=== PATIENT | female | born 1940 | race Caucasian/White ===

== ENCOUNTER → 2017-04-20 10:17 | Outpatient (CLI) | payer MEDICARE, SELFPAY ==
[2017-04-20 11:20] LABS: Anion Gap 6 (5-15); BUN 21 mg/dL (7-18); BUN/Creat Ratio 19.8 RATIO (10-20); Calcium,Total 9.5 mg/dL (8.5-10.1); Chloride 104 mmol/L (98-107); Creatinine, Serum 1.06 mg/dL (0.55-1.02); EST Glomerular Filtration Rate 54 mL/min (>60); Est Glom Filt Rate - Afr Amer 65 mL/min (>60); Glucose 129 mg/dL (74-106); Potassium 4.1 mmol/L (3.5-5.1); Sodium Level 140 mmol/L (136-145)
== END ==
PROVIDERS: Family Provider Internal Medicine; PCP Internal Medicine; Visit Provider Physician Assistant Medical
DX: I10 Essential (primary) hypertension (principal)
CPT/HCPCS: 36415; 80048

== ENCOUNTER 2017-08-26 09:47 | Emergency (ER) | payer MEDICARE, SELFPAY ==
[2017-08-26 09:48] VITALS: BP 162/95; PULSE 92; RESP 18; TEMP 36.6; BMI 39.7
--- NOTE | 2017-08-26 09:56 | NURSING ---
NO LW OR POA
--- NOTE | 2017-08-26 10:09 | ED.VISSUMM ---
- ER Visit Summary Date of Service: 08/26/17 Chief Complaint: Atraumatic right knee pain for months History of Present Illness: The patient is a 76 F history of hypertension and prediabetes. Patient states for the last 4-6 months she has had atraumatic right knee pain. Worse with walking. Better in the morning worse as she goes out to the day. Denies any type of fall or trauma. No redness or fever. No prior knee surgery. She is tried Motrin, Tylenol and hydrocodone without much relief. Also ice and rest. Physical Examination: Older female no acute distress. Vital signs are stable afebrile. H EENT exam unremarkable. Lungs clear to auscultation bilaterally. Heart regular rate and rhythm no murmur. Abdomen soft nontender. She is moving all 4 extremities. The neurovascular intact. The right knee has full range of motion. Full flexion-extension. The ligaments are intact. There is minimal swelling no significant effusion. No redness or warmth. She is mildly tender on the medial joint space and medial proximal tibia. There is no crepitus. Distally the right calf ankle and foot are nontender neurovascular intact with a normal DP pulse. Dorsi and plantar flexion is intact. Normal sensation. Right hip and thigh are unremarkable and nontender. Test Results: Right knee x-ray with 3 views his chronic degenerative changes consistent with osteoarthritis with joint space narrowing medially. Otherwise no acute bony abnormality. Emergency Department Course and Treatment: Patient history and exam is with right knee degenerative arthritis. Treatment Plan: Nano with patient and family at length. Did a right medial knee joint injection using lidocaine and Kenalog. Area was cleaned thoroughly with alcohol swabs. 1 injection without any difficulty. Patient tolerated procedure well. Discharge to home. Limited anti-inflammatories such as Motrin for pain and inflammation. Ice. And follow-up with Dr. Rajan Torres petroleum production engineer for orthopedics. Disposition: Discharge Impression: Atraumatic right knee pain related to osteoarthritis Right knee joint injection with Kenalog and lidocaine by ER physician This note was generated with [employer] dictation software. It may contain incorrect words, spelling, and punctuation that were not noted in review of the chart prior to signing ED Disposition - Plan for ED Patient: Chief Complaint: Lower Extremity Injury Referrals: Alejandra Randhawa MD [Primary Care Provider] -
--- NOTE | 2017-08-26 10:12 | ED.DCSUM_ITS ---
- ER Visit Summary Date of Service: 08/26/17 Chief Complaint: Atraumatic right knee pain for months History of Present Illness: The patient is a 76 F history of hypertension and prediabetes. Patient states for the last 4-6 months she has had atraumatic right knee pain. Worse with walking. Better in the morning worse as she goes out to the day. Denies any type of fall or trauma. No redness or fever. No prior knee surgery. She is tried Motrin, Tylenol and hydrocodone without much relief. Also ice and rest. Physical Examination: Older female no acute distress. Vital signs are stable afebrile. H EENT exam unremarkable. Lungs clear to auscultation bilaterally. Heart regular rate and rhythm no murmur. Abdomen soft nontender. She is moving all 4 extremities. The neurovascular intact. The right knee has full range of motion. Full flexion-extension. The ligaments are intact. There is minimal swelling no significant effusion. No redness or warmth. She is mildly tender on the medial joint space and medial proximal tibia. There is no crepitus. Distally the right calf ankle and foot are nontender neurovascular intact with a normal DP pulse. Dorsi and plantar flexion is intact. Normal sensation. Right hip and thigh are unremarkable and nontender. Test Results: Right knee x-ray with 3 views his chronic degenerative changes consistent with osteoarthritis with joint space narrowing medially. Otherwise no acute bony abnormality. Emergency Department Course and Treatment: Patient history and exam is with right knee degenerative arthritis. Treatment Plan: Nano with patient and family at length. Did a right medial knee joint injection using lidocaine and Kenalog. Area was cleaned thoroughly with alcohol swabs. 1 injection without any difficulty. Patient tolerated procedure well. Discharge to home. Limited anti-inflammatories such as Motrin for pain and inflammation. Ice. And follow-up with Dr. Rajan Torres mercerizing range controller for orthopedics. Disposition: Discharge Impression: Atraumatic right knee pain related to osteoarthritis Right knee joint injection with Kenalog and lidocaine by ER physician This note was generated with [employer] dictation software. It may contain incorrect words, spelling, and punctuation that were not noted in review of the chart prior to signing ED Disposition - Plan for ED Patient: Chief Complaint: Lower Extremity Injury Referrals: Alejandra Randhawa MD [Primary Care Provider] -
--- NOTE | 2017-08-26 10:15 | RAD_ITS ---
STUDY: X-RAY - RIGHT KNEE REASON FOR EXAM: Female, 76 years old. Six-month history of pain. No known injury. TECHNIQUE: 3 view(s) of the knee. COMPARISON: None. FINDINGS: Normal visualized distal femur. Normal visualized proximal tibia and fibula. Normal proximal tibiofibular articulation. There is mild degenerative arthrosis of the medial femorotibial compartment. Normal lateral femorotibial compartment. There is mild degenerative arthrosis of the patellofemoral articulation. Chondrocalcinosis of the lateral meniscus. The soft tissue structures are unremarkable. RAD/Knee 3 Views IMPRESSION: Degenerative arthrosis. Chondrocalcinosis of the lateral meniscus. Electronically Signed: Justin Durand MD at 10:35 EDT Tel [phone], Service support ,
[2017-08-26 11:03] VITALS: BP 159/84; PULSE 65; RESP 16; O2SAT 97
[2017-08-26] MEDS: Triamcinolone Acetonide 40 MG/ML Vial IU (11:28)
[2017-08-26] MEDS: Lidocaine/Epi/Tetracaine 50 ML 1 APPLIC TOPICAL (11:28)
--- NOTE | 2017-08-26 12:19 | ED.DEP ---
ED Disposition - Plan for ED Patient: Disposition: Home or Assisted Living Chief Complaint: Lower Extremity Injury Instructions: ED Degenerative Joint Disease Referrals: Rajan Torres DO [STAFF PHYSICIAN] - As soon as possible Additional Instructions: Call and follow-up with a orthopedic physician of your choice. They can discuss to further treatment and possible joint replacement of the right knee. Ice to the right knee to decrease inflammation. Limited Motrin for pain and inflammation. 400 mg twice a day.
== END 2017-08-26 12:52 | disposition home or self-care (01) ==
PROVIDERS: Emergency Provider Emergency Medicine; Family Provider Internal Medicine; PCP Internal Medicine
DX: M17.11 Unilateral primary osteoarthritis, right knee (principal); I10 Essential (primary) hypertension
CPT/HCPCS: 20610; 73562; 99282

== ENCOUNTER → 2018-01-09 11:13 | Outpatient (CLI) | payer MEDICARE, SELFPAY ==
[2018-01-09 11:56] LABS: Anion Gap 7 (5-15); BUN 23 mg/dL (7-18); BUN/Creat Ratio 25.2 RATIO (10-20); Calcium,Total 9.4 mg/dL (8.5-10.1); Chloride 107 mmol/L (98-107); Creatinine, Serum 0.91 mg/dL (0.55-1.02); EST Glomerular Filtration Rate 64 mL/min (>60); Est Glom Filt Rate - Afr Amer 77 mL/min (>60); Glucose 109 mg/dL (74-106); Potassium 3.8 mmol/L (3.5-5.1); Sodium Level 142 mmol/L (136-145)
== END ==
PROVIDERS: Internal Medicine Cardiovascular Disease; Family Provider Internal Medicine; PCP Internal Medicine; Referring Provider Internal Medicine Cardiovascular Disease; Visit Provider Internal Medicine Cardiovascular Disease
DX: I10 Essential (primary) hypertension (principal)
CPT/HCPCS: 36415; 80048

== ENCOUNTER → 2019-08-01 | Outpatient (CLI) | payer MEDICARE, SELFPAY ==
[2019-08-01 13:15] VITALS: BMI 41.5
[2019-08-01 15:10] LABS: Anion Gap 5 (5-15); BUN 19 mg/dL (7-18); BUN/Creat Ratio 22.3 RATIO (10-20); Calcium,Total 10.2 mg/dL (8.5-10.1); Chloride 101 mmol/L (98-107); Creatinine, Serum 0.85 mg/dL (0.55-1.02); EST Glomerular Filtration Rate 69 mL/min (>60); Est Glom Filt Rate - Afr Amer 83 mL/min (>60); Glucose 111 mg/dL (74-106); Potassium 3.7 mmol/L (3.5-5.1); Sodium Level 139 mmol/L (136-145)
[2019-08-01 15:35] LABS: BNP,B-Type NATRIURETIC PEPTIDE 12.3 pg/mL (0-100)
== END | disposition home or self-care (01) ==
PROVIDERS: PCP Internal Medicine; Referring Provider Nurse Practitioner Family; Visit Provider Nurse Practitioner Family
DX: I25.10 Atherosclerotic heart disease of native coronary artery without angina pectoris (principal); R06.02 Shortness of breath; R06.00 Dyspnea, unspecified; Z95.2 Presence of prosthetic heart valve
CPT/HCPCS: 36415; 80048; 83880

== ENCOUNTER → 2019-08-13 07:17 | Outpatient (CLI) | payer MEDICARE, SELFPAY ==
[2019-07-17 09:53] VITALS: BMI 42.0
[2019-08-01 13:15] VITALS: BMI 41.5
--- NOTE | 2019-08-13 07:19 | ECHOD_ITS ---
Reason For Study: SOB Procedure This was a 2D Doppler, Color Flow transthoracic echocardiogram. Exam performed in department. Left Ventricle Normal LV size. Mild concentric left ventricular hypertrophy. Left ventricular systolic function is normal. The estimated ejection fraction is 65 %. Stage 1 diastolic dysfunction. No regional wall motion abnormalities noted. Right Ventricle Normal RV size. Normal systolic function. Atria The left atrium is mildly enlarged. Normal right atrium. Mitral Valve Normal mitral valve. Tricuspid Valve Normal tricuspid valve. Mild tricuspid valve insufficiency. Pulmonary artery systolic pressure is 31 mmHg. Aortic Valve Peak aortic valve gradient 23 mmHg. Mean aortic valve gradient 11 mmHg. Bioprosthetic aortic valve. MMode/2D Measurements & Calculations LVIDd: 3.6 cm IVSd: 1.3 cm LVOT diam: 1.9 cm LVIDs: 1.9 cm LVPWd: 1.3 cm RVDd: 3.3 cm FS: 47.8 % LVOT area: 2.8 cm2 Ao root diam: 3.4 cm LAV(MOD-bp): 65.9 ml LA A4 area: 22.6 cm2 LAV(MOD-bp) Indexed: 34.4 ml/m2 LAV(MOD-sp2): 55.3 ml LAV(MOD-sp4): 78.5 ml LA dimension(2D): 4.0 cm RA A4 area: 13.6 cm2 Doppler Measurements & Calculations MV E max dani: 104.5 cm/sec Lat Peak E' Dani: 4.4 cm/sec Med Peak E' Dani: 5.9 cm/sec MV A max dani: 120.0 cm/sec E/E' lat: 23.8 E/E' med: 17.6 MV E/A: 0.87 Ao V2 max: 241.1 cm/sec LV V1 max: 160.1 cm/sec SV(LVOT): 96.3 ml Ao max P.3 mmHg LV V1 max P.3 mmHg Ao V2 mean: 155.7 cm/sec LV V1 mean P.6 mmHg Ao mean P.2 mmHg LV V1 mean: 110.8 cm/sec Ao V2 VTI: 49.0 cm LV V1 VTI: 34.9 cm AVELINO(I,D): 2.0 cm2 AVELINO(V,D): 1.8 cm2 PA V2 max: 147.2 cm/sec TR max dani: 262.6 cm/sec TR max P.7 mmHg Interpretation Summary Normal LV size. Mild concentric left ventricular hypertrophy. Left ventricular systolic function is normal. The estimated ejection fraction is 65 %. Stage 1 diastolic dysfunction. Bioprosthetic aortic valve. Mean aortic valve gradient 11 mmHg. Ordering Physician: Mitch Brooks/Reggie Olguin Referring Physician: Alejandra Randhawa M.D. Performed By: Kamala Mortensen RDCS
--- NOTE | 2019-08-13 09:57 | STRESSREP ---
Stress Test Report Pharmacologic myocardial perfusion stress test. 78-year-old lady with history of coronary artery disease status post TAVR. Stress protocol: Resting EKG demonstrates normal sinus rhythm with a rate of 81 bpm normal intervals are noted resting blood pressures 138/74 mmHg. 0.4 mg of regadenoson was infused per usual protocol followed by rapid intravenous saline flush injection. Continuous EKG monitoring was performed. The maximum heart rate was 96 bpm which was 66% of maximum predicted heart rate the maximum workload was 1 metabolic equivalent. The patient maintained sinus rhythm with nonspecific ST-T wave changes noted. The resting blood pressure is 138/74 mmHg with a final blood pressure 146/64 mmHg. Myocardial perfusion protocol. 15.0 mCi of technetium 99m sestamibi was injected at rest. 0.4 mg of regadenoson was infused per usual protocol. At peak infusion 45.0 mCi of technetium 99m sestamibi was injected stress images were obtained stress and rest images are reconstructed and compared in the short axis vertical long horizontal long axis. Gated images were also obtained. Perfusion SPECT analysis: Review of the images demonstrate normal uptake of tracer noted in all areas of the myocardium the resting images similar demonstrate normal uptake of tracer noted in all areas of the myocardium. No areas of reversibility are noted suggest ischemia no previous infarct is noted. Gated SPECT analysis: The gated ejection fraction is 76%. Conclusion: Normal pharmacologic myocardial perfusion stress test. Preserved ejection fraction.
== END ==
PROVIDERS: PCP Internal Medicine; Referring Provider Nurse Practitioner Family; Visit Provider Nurse Practitioner Family
DX: R06.02 Shortness of breath (principal); I25.10 Atherosclerotic heart disease of native coronary artery without angina pectoris; I10 Essential (primary) hypertension; Z95.2 Presence of prosthetic heart valve
CPT/HCPCS: 78452; 93017; 93306; A9500; A4216; J2785

== ENCOUNTER 2020-05-28 10:47 | Day surgery (SDC) | payer MEDICARE, SELFPAY ==
[2020-02-14 09:10] VITALS: BMI 41.2
--- NOTE | 2020-05-28 | COLBX_PTH ---
PATIENT: JARRED ODONNELL LOC: EN U#:[id number] AGE/SX: 79/F ROOM: RE05/28/[address]: Dr. Leni Nunes MD : 1940 BED: DIS: 05/28/2020 SPEC #: [id number] RECD: 05/29/20 07:28 STATUS: RENNY REQ #: [id number] LEELA: 05/28/20 00:[address]: Leni Nunes DEPT: SURGICAL PATHOLOGY RECD BY: Ashkan Gore ENTERED: 05/29/20 07:28 SP TYPE: COLON BX OTHR DR: Dr. Alejandra Randhawa MD Tissues: Right colon Procedures: Surgery Specimen Level IV HEADER OPERATION: Colonoscopy (MAC) PRE-OP DIAGNOSIS: History colon polyps TISSUE SUBMITTED: Polyp right colon MICROSCOPIC DIAGNOSIS Right colon polyp, biopsy: Tubular adenoma. AM:bryan 05/30/2020 MICROSCOPIC DESCRIPTION Slides are reviewed. GROSS DESCRIPTION Received in fixative is one container labeled with the patient's name and designated polyp right colon. The specimen consists of multiple irregular fragments of light soto soft tissue that in aggregate measure 1 x 0.2 x 0.1 cm. The specimen is totally submitted in one cassette. / JOHANNA:bryan 05/29/20 TC:5 CPT: 19158
[2020-05-28 11:30] VITALS: BP 121/74; PULSE 70; RESP 16; TEMP 36.4; O2SAT 98; BMI 41.8
[2020-05-28] MEDS: Lactated Ringers 1,000 ML 100 ML IV (11:44)
--- NOTE | 2020-05-28 11:45 | HP.PCM_ITS ---
History and Physical Date of Admission: 05/28/20 Annemarie Fair a 79 year old female who is referred by Dr. Randhawa for surveillance colonoscopy. The patient has a personal history of colon polyps, and a family history of colon cancer in that her father had the disease. ? The patient was seen by Dr. Ratliff for surveillance colonoscopy 05/22/15. The procedure report has been reviewed and findings as follows: Impression: ? ? - One 5 mm polyp at 30 cm proximal to the anus. ? Resected and retrieved. ? - Diverticulosis in the sigmoid colon, in the ? descending colon and in the ascending colon. ? FINAL DIAGNOSIS Colon at 30 cm, polypectomy - Tubular adenoma. ? I have reviewed the procedure and pathology reports, as well as the images, with the patient. ? The patient has a history of CAD, HTN and HLD for which she sees Dr. Cui, asthma, hypothyroidism, and dysmetabolic syndrome A1C 5.9 one year ago). ? ? Presenting complaint: history of polyps The patient denies change in bowel habits, rectal bleeding or abdominal pain. Having a bowel movement at least every day. ? The patient presents today reporting that she continues with shortness of breath - TINAJERO. Using CPAP. ? REVIEW OF SYSTEMS: GENERAL: No weight loss, malaise or fevers RESPIRATORY: Asthma. Shortness of breath CARDIOVASCULAR: Aortic valve replacement, HTN GI: As reported above MUSCULOSKELETAL: Positive for joint pain or swelling, back pain or muscle pain PSYCH: Negative for sleep disturbance, mood disorder and recent psychosocial stressors. HEMATOLOGY/LYMPHOLOGY Negative for prolonged bleeding, bruising easily or swollen nodes ENDOCRINE: Hypothyroidism and dysmetabolic syndrome NEURO: No history of headaches, syncope, paralysis, seizures or tremors All other reviewed and negative other than HPI. ? PAST MEDICAL HISTORY PAST MEDICAL HISTORY Diagnosis Date ? Allergic rhinitis, cause unspecified ? ? Allergic rhinitis ? Benign neoplasm of colon ? ? Disorder of bone and cartilage, unspecified ? ? Dysmetabolic syndrome X 06/28/2006 ? Started on Januvia by Dr. Toure for DM prevention since did not tolerate metformin ? Nonrheumatic aortic insufficiency with aortic stenosis ? ? Dr. Olguin--Moderate on recent echo Dec 2015 ? Obesity, unspecified ? ? Other diseases of pharynx, not elsewhere classified(478.29) ? ? Personal history of colonic polyps ? ? Pure hyperglyceridemia ? ? Snoring ? ? Unspecified asthma(493.90) ? ? Unspecified cardiovascular disease ? ? AI and some CAD on cath (Clau follows) ? Unspecified essential hypertension ? ? Unspecified hypothyroidism ? ? ? PAST SURGICAL HISTORY PAST SURGICAL HISTORY Procedure Laterality Date ? COLONOS W/REM POLYP SNARE ? 03/27/10 ? COLONOSCOP W/ OR W/O BRSH SPEC ? 05/13/2000 ? Colonoscopy ? COLONOSCOP W/ OR W/O BRSH SPEC ? 06/15/2006 ? Colonoscopy- TA polyp ? COLONOSCOP W/ OR W/O BRSH SPEC ? 05/22/15 ? Colonoscopy ? D&C, DIAG AND/OR THERAPEUTIC ? ? ? Dilation & curettage ? EYE EXAM & TREATMENT ? 01/07/12 ? No diabetic retinopathy detected ? LIGATE FALLOPIAN TUBE ? ? ? Tubal ligation ? PAST SURGICAL HISTORY OF ? 02/20/2002 ? parathyroid resection (Dr. 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 PAST SURGICAL HISTORY OF ? ? ? heart cath x2 ? PAST SURGICAL HISTORY OF ? ? ? moles removed ? PAST SURGICAL HISTORY OF ? 08/07/13 ? Dr. Ferguson took 3 skin biopsies ? REMOVAL GALLBLADDER ? ? ? Cholecystectomy ? STRESS TEST ? 01/12/2016 ? ? FAMILY HISTORY FAMILY HISTORY Problem Relation Age of Onset ? Heart Mother ? ? Heart Brother ? ? x2 ? Colon Cancer Father ? ? Hypertension Mother ? ? Hypertension Brother ? ? Diabetes Brother ? ? ? CURRENT MEDICATIONS Current Outpatient Medications Medication Sig Dispense Refill ? CPAP Needs replacement CPAP at 9cm H2O with humidification. Refills for Mask (per patient preference) optional chin strap (if indicated) , filters, tubing, humidifier and lifetime supplies. G47.33 1 Device 0 ? Zinc 50 mg tab Take 1 tablet by mouth once daily. ? ? ? montelukast (SINGULAIR) 10 mg tablet Take 1 tablet by mouth once daily. As directed 90 tablet 3 ? levothyroxine (SYNTHROID) 137 mcg tablet Take 1 tablet by mouth daily before breakfast. 90 tablet 3 ? amLODIPine (NORVASC) 10 mg tablet Take 1 tablet by mouth once daily. (Dr. Olguin) ? ? ? rosuvastatin (CRESTOR) 5 mg tablet Take 1 tablet by mouth every Tuesday,Tuesday,Tuesday. ? ? ? glucosamine HCl/chondroitin mccarthy (GLUCOSAMINE-CHONDROITIN ORAL) Take by mouth once daily. ? ? ? ubidecarenone (CO Q-10 ORAL) Take by mouth once daily. ? ? ? albuterol HFA (VENTOLIN HFA) 90 mcg/actuation inhaler Inhale 2 Puffs as instructed every 4 hours as needed. 3 Inhaler 0 ? lisinopril (ZESTRIL, PRINIVIL) 40 mg tablet Take 1 tablet by mouth once daily. ? ? ? carvedilol (COREG) 6.25 mg tablet Take 1 tablet by mouth twice daily. ? ? ? acetaminophen (TYLENOL EXTRA STRENGTH) 500 mg tablet Take 2 tablets by mouth three times daily. ? ? ? Multivitamin capsule Take 1 capsule by mouth once daily. ? ? ? furosemide (LASIX) 40 mg tablet Take 40 mg by mouth once daily. ? ? ? vitamin e 1,000 unit capsule Take 1,000 Units by mouth once daily. ? ? ? BIOTIN ORAL Take by mouth. ? ? ? VITAMIN A PALMITATE ORAL Take by mouth. ? ? ? Cetirizine (ZYRTEC) 10 mg cap Take by mouth. ? 0 ? Cholecalciferol, Vitamin D3, 1,000 unit cap Take 1 capsule by mouth once daily. ? 0 ? aspirin, enteric coated (ECOTRIN LOW STRENGTH) 81 mg EC tablet Take 1 tablet by mouth once daily. ? 0 ? COMPOUNDED PRESCRIPTION CPAP head gear Diagnosis :OPHELIA 327.23 1 Each 0 ? OMEGA-3 FATTY ACIDS-FISH OIL 300 MG-1,000 MG CAP Take one(1) tablet daily. 0 0 ? diphenhydramine hcl(BENADRYL 25 MG CAP) Take one(1) tablet daily at bedtime as necessary (uses 5-6 x's a week) 0 0 ? No current facility-administered medications for this visit. ? ? SOCIAL HISTORY: Patient is . She has never smoked and reports her alcohol use as never. ? ? PHYSICAL EXAMINATION: BMI 42.5 Blood pressure 122/74, pulse 77, height 152.8 cm (5' 0.16), weight 99.3 kg (219 lb), last menstrual period 09/04/2001, SpO2 99 %. General Appearance: Well appearing, alert, in no acute distress, well-hydrated, well nourished. Skin: Skin color, texture, turgor normal, no suspicious rashes or lesions. Head: Normocephalic, no abnormalities. Eyes: Anicteric sclera. Neck: Supple, no adenopathy. Lungs: Lungs clear to auscultation. Heart: RRR with 2/6 murmur. Abdomen: Abdomen rotund, non-tender. Bowel sounds normal. Extremities: No deformities, non-pitting edema bilateral LE. Peripheral Pulses: Normal. Neurologic: Gait normal. Sensation grossly intact. ? Impression: history of polyps 2) asthma ? Plan: I have recommended MAC sedation and the patient agrees. Requesting procedure at [facility] since her patient access representative is there. ? This patient will be scheduled for a colonoscopy using Miralax as the prep. The preparation, as well as the procedure, has been explained in detail. The risks, benefits, anticipated outcomes and possible complications, including failure to complete the endoscopy and perforation, were mentioned. ?I explained the procedure in understandable terms and the patient was given printed material concerning the planned procedure. The patient had the opportunity to ask questions concerning the planned procedure. The patient freely consents to the planned procedure. ? The patient is scheduled for a procedure at the [facility]. I have explained that his/her health and safety, as well as that of our staff is important. The risk of exposure to, or potential harm posed by the COVID-19 virus with having a procedure at this time is as minimal as possible. Measures are being taken to minimize any potential risk of infection. I have explained that he/she will see that the staff will be wearing masks and gloves. The patient's temperature will be taken on arrival, they will be asked a series of questions to reassess current wellness, and asked to use hand dust collector attendant foam. The bed areas are cleaned and the procedure rooms are thoroughly disinfected between patients. Procedure rooms will be alternated to give the disinfection more than enough time to ensure adequate protection for all involved. ? The patient is asked to call with any questions for concerns, or should there be any change in health status between now and the scheduled procedure. ? I have personally interviewed and examined this patient. I have read the information the EGG FACTORY WORKER documented in this encounter. I spent a total of?at least 25?minutes on the date of the service which included completing clinical documentation, counseling and educating the patient/family/caregiver, ordering medications, tests, or procedures and care coordination (not separately reported). ? Vanesa Bright RN SALES TEAM LEADER.PULLEY MAINTAINER
[2020-05-28 12:30] VITALS: BP 103/71; BP 121/74; PULSE 69; RESP 16; TEMP 36.2; O2SAT 96
[2020-05-28 12:35] VITALS: BP 102/47; BP 121/74; PULSE 63; RESP 16; O2SAT 97
[2020-05-28 12:40] VITALS: BP 121/74; BP 99/50; PULSE 61; RESP 16; O2SAT 98
[2020-05-28 12:42] VITALS: BP 110/58; BP 121/74; PULSE 63; RESP 18; TEMP 36.6; O2SAT 98
--- NOTE | 2020-05-28 12:47 | OP.COLON_ITS ---
Patient Name: Peyton Fair Procedure Date: 05/28/2020 11:22 AM Date of : 1940 Age: 79 Procedure: Colonoscopy Indications: High risk colon cancer surveillance: Personal history of colonic polyps Providers: Leni Nunes MD Referring MD: Alejandra Randhawa Medicines: See the Anesthesia note for documentation of the administered medications Patient Profile: Refer to note in patient chart for documentation of history and physical. Last Colonoscopy: 2015. Complications: No immediate complications. Procedure: Pre-Anesthesia Assessment: - see anesthesia note After I obtained informed consent, the scope was passed under direct vision. Throughout the procedure, the patient's blood pressure, pulse, and oxygen saturations were monitored continuously. The Colonoscope was introduced through the anus and advanced to the cecum, identified by the appendiceal orifice, ileocecal valve and palpation. The colonoscopy was performed without difficulty. The patient tolerated the procedure well. The quality of the bowel preparation was adequate to identify polyps 6 mm and larger in size. Scope In: 12:06:28 PM Scope Withdrawal Time 0 hours 13 minutes 25 seconds Scope Out: 12:24:40 PM Total Procedure Duration Time 0 hours 18 minutes 12 seconds Findings: The perianal and digital rectal examinations were normal. Multiple small and large-mouthed diverticula were found in the sigmoid colon, descending colon, transverse colon and ascending colon. A 4 to 9 mm polyp was found in the ascending colon. The polyp was sessile. The polyp was removed with a cold snare. Resection and retrieval were complete. Verification of patient identification for the specimen was done by the nurse. Estimated blood loss was minimal. Non-bleeding internal hemorrhoids were found. Impression: - Diverticulosis in the sigmoid colon, in the descending colon, in the transverse colon and in the ascending colon. - One 4 to 9 mm polyp in the ascending colon, removed with a cold snare. Resected and retrieved. - Non-bleeding internal hemorrhoids. Recommendation: - Return to nurse practitioner in 1-2 week - call Vanesa Bright for televisit to discuss results. - Repeat colonoscopy is recommended for surveillance. The colonoscopy date will be determined after pathology results from today's exam become available for review. - Continue present medications. Procedure Code(s): --- Professional --- 08972, Colonoscopy, flexible; with removal of tumor(s), polyp(s), or other lesion(s) by snare technique Diagnosis Code(s): --- Professional --- Z86.010, Personal history of colonic polyps K64.8, Other hemorrhoids D12.2, Benign neoplasm of ascending colon K57.30, Diverticulosis of large intestine without perforation or abscess without bleeding CPT copyright 2017 [employer] [place] [employer]. All rights reserved. The codes documented in this report are preliminary and upon graphic artist review may be revised to meet current compliance requirements. MD Leni Strange MD 05/28/2020 12:35:58 PM This report has been signed electronically. Number of Addenda: 0 Note Initiated On: 05/28/2020 11:22 AM
--- NOTE | 2020-05-28 12:47 | OP.CCLET_ITS ---
05/28/2020 Alejandra Randhawa [address] [place] [address] Re : Colonoscopy procedure for Peyton Pettite Dear Dr. Randhawa This procedure was performed on Thursday, May 28, 2020. My impressions and recommendations are as follows: Impressions : - Diverticulosis in the sigmoid colon, in the descending colon, in the transverse colon and in the ascending colon. - One 4 to 9 mm polyp in the ascending colon, removed with a cold snare. Resected and retrieved. - Non-bleeding internal hemorrhoids. Recommendations : - Return to nurse practitioner in 1-2 week - call Vanesa Bright for televisit to discuss results. - Repeat colonoscopy is recommended for surveillance. The colonoscopy date will be determined after pathology results from today's exam become available for review. - Continue present medications. My findings are described in the full procedure note, which is enclosed. If I can be of further assistance, please feel free to contact me at Doctor phone number(s): , Work: . Sincerely, MD Leni Strange MD 05/28/2020 12:35:58 PM This report has been signed electronically.
[2020-05-28 13:08] VITALS: BP 121/74
== END 2020-05-28 13:21 | disposition home or self-care (01) ==
LOC: EN 10:47 → AC 10:51
PROVIDERS: PCP Internal Medicine; Referring Provider Internal Medicine; Visit Provider Surgery
PROC: 0DJD8ZZ Inspection of Lower Intestinal Tract, Via Natural or Artificial Opening Endoscopic (ICD-10-PCS; CPT 45378; principal; 2020-05-28 11:55)
DX: Z12.11 Encounter for screening for malignant neoplasm of colon (principal); D12.2 Benign neoplasm of ascending colon; K57.30 Diverticulosis of large intestine without perforation or abscess without bleeding; K64.8 Other hemorrhoids; I25.10 Atherosclerotic heart disease of native coronary artery without angina pectoris; I10 Essential (primary) hypertension; E78.5 Hyperlipidemia, unspecified; E03.9 Hypothyroidism, unspecified; J45.909 Unspecified asthma, uncomplicated; G47.30 Sleep apnea, unspecified; E66.9 Obesity, unspecified; Z68.41 Body mass index [BMI] 40.0-44.9, adult; Z86.010 Personal history of colon polyps; Z20.822 Contact with and (suspected) exposure to COVID-19; Z79.51 Long term (current) use of inhaled steroids; Z79.899 Other long term (current) drug therapy
CPT/HCPCS: 45380; 87426; 88305; C9803; J7120

== ENCOUNTER → 2022-03-25 | Outpatient (CLI) | payer MEDICARE, SELFPAY ==
--- NOTE | 2022-03-25 09:37 | ECHOD_ITS ---
Version 2 Reason For Study: ASHD Procedure This was a 2D Doppler, Color Flow transthoracic echocardiogram. Exam performed in department. Left Ventricle Normal LV size. Mild concentric left ventricular hypertrophy. Left ventricular systolic function is normal. The estimated ejection fraction is 60 %. No regional wall motion abnormalities noted. Right Ventricle Normal RV size. Normal systolic function. Atria Normal left atrium. Normal right atrium. Mitral Valve There is mild mitral annular calcification. Tricuspid Valve Normal tricuspid valve. Aortic Valve Peak aortic valve gradient 15 mmHg. Mean aortic valve gradient 9 mmHg. Normal prosthetic aortic valve. Pulmonic Valve Normal pulmonic valve. Great Vessels Normal aortic root. The pulmonary artery is normal size. Normal inferior vena cava. Pericardium/Pleural No pericardial effusion. MMode/2D Measurements & Calculations LVIDd: 4.4 cm IVSd: 1.3 cm LVOT diam: 1.9 cm LVIDs: 2.3 cm LVPWd: 1.3 cm LVOT area: 3.0 cm2 RVDd: 3.7 cm FS: 46.5 % Ao root diam: 3.1 cm LAV(MOD-bp): 71.2 ml LVAd ap4: 24.0 cm2 LAV(MOD-bp) Indexed: 37.0 ml/m2 LVLd ap4: 7.7 cm LAV(MOD-sp2): 70.4 ml EDV(MOD-sp4): 63.9 ml LAV(MOD-sp4): 70.1 ml EDV(sp4-el): 63.5 ml LVAs ap4: 10.2 cm2 LVLs ap4: 5.8 cm ESV(MOD-sp4): 16.5 ml ESV(sp4-el): 15.1 ml EF(MOD-sp4): 74.2 % EF(sp4-el): 76.1 % LVAd ap2: 22.6 cm2 SV(MOD-sp4): 47.4 ml SV(MOD-sp2): 35.3 ml LVLd ap2: 8.2 cm EDV(MOD-sp2): 53.9 ml EDV(sp2-el): 52.8 ml LVAs ap2: 12.0 cm2 LVLs ap2: 6.7 cm ESV(MOD-sp2): 18.6 ml ESV(sp2-el): 18.4 ml EF(MOD-sp2): 65.5 % SV(sp4-el): 48.3 ml LA dimension(2D): 4.0 cm LA A4 area: 20.9 cm2 RA A4 area: 17.2 cm2 Time Measurements MV dec time: 0.23 sec Doppler Measurements & Calculations MV E max dani: 94.0 cm/sec Lat Peak E' Dani: 6.0 cm/sec Med Peak E' Dani: 7.9 cm/sec MV A max dani: 117.4 cm/sec E/E' lat: 15.6 E/E' med: 11.8 MV E/A: 0.80 Ao V2 max: 192.5 cm/sec LV V1 max: 116.0 cm/sec MV dec slope: 414.2 cm/sec2 Ao max P.8 mmHg LV V1 max P.4 mmHg Ao V2 mean: 139.4 cm/sec LV V1 mean P.3 mmHg Ao mean P.6 mmHg LV V1 mean: 87.2 cm/sec Ao V2 VTI: 42.7 cm LV V1 VTI: 28.0 cm AV (velocity ratio): 0.66 AVELINO(I,D): 1.9 cm2 AVELINO(V,D): 1.8 cm2 SV(LVOT): 82.6 ml PA V2 max: 107.3 cm/sec TR max dani: 291.3 cm/sec TR max P.9 mmHg ECHO/Echo Complete Interpretation Summary Normal LV size. Left ventricular systolic function is normal. The estimated ejection fraction is 60 %. There is mild mitral annular calcification. Mild concentric left ventricular hypertrophy. Normal prosthetic aortic valve. Mean aortic valve gradient 9 mmHg. Compared to the previous no significant changes noted Ordering Physician: Reggie Olguin Referring Physician: Alejandra Randhawa Performed By: Delisa Ascencio, RDCS, RVT
== END | disposition home or self-care (01) ==
LOC: CVS 09:36
PROVIDERS: PCP Internal Medicine; Referring Provider Internal Medicine Cardiovascular Disease; Visit Provider Internal Medicine Cardiovascular Disease
DX: I25.10 Atherosclerotic heart disease of native coronary artery without angina pectoris (principal); Z95.2 Presence of prosthetic heart valve; R06.02 Shortness of breath; I10 Essential (primary) hypertension
CPT/HCPCS: 93306

== ENCOUNTER → 2023-03-23 | Outpatient (CLI) | payer MEDICARE, SELFPAY ==
--- NOTE | 2023-03-23 09:52 | ECHOCS_ITS ---
Reason For Study: Presence of Prosthetic Heart Valve Procedure This was a 2D Doppler, Color Flow transthoracic echocardiogram. Contrast injection was performed. Exam performed in department. Left Ventricle Normal LV size. Left ventricular systolic function is normal. The estimated ejection fraction is 70 %. No regional wall motion abnormalities noted. Right Ventricle Normal right ventricle. Normal systolic function. Atria Normal left atrium. Normal right atrium. Mitral Valve Normal mitral valve. Tricuspid Valve Normal tricuspid valve. Mild (1+) tricuspid valve insufficiency. Pulmonary artery systolic pressure is 36 mmHg. Aortic Valve Peak aortic valve gradient 21 mmHg. Mean aortic valve gradient 12 mmHg. Bioprosthetic aortic valve. Pulmonic Valve Normal pulmonic valve. Great Vessels Normal aortic root. The pulmonary artery is normal size. Normal inferior vena cava. Pericardium/Pleural No pericardial effusion. Medication Diluted definity 2ml given slow IV push to enhance endocardial definition. MMode/2D Measurements & Calculations LVIDd: 4.3 cm IVSd: 1.1 cm LVOT diam: 1.9 cm LVIDs: 2.3 cm LVPWd: 1.1 cm RVDd: 3.6 cm FS: 46.7 % LVOT area: 2.7 cm2 Ao root diam: 3.0 cm LAV(MOD-bp): 50.9 ml LVAd ap4: 28.2 cm2 LAV(MOD-bp) Indexed: 26.5 ml/m2 LVLd ap4: 7.5 cm LAV(MOD-sp2): 53.8 ml EDV(MOD-sp4): 90.3 ml LAV(MOD-sp4): 47.6 ml EDV(sp4-el): 90.4 ml LVAs ap4: 14.0 cm2 LVLs ap4: 6.5 cm ESV(MOD-sp4): 25.5 ml ESV(sp4-el): 25.6 ml EF(MOD-sp4): 71.8 % EF(sp4-el): 71.7 % SV(MOD-sp4): 64.8 ml SV(sp4-el): 64.8 ml LA A4 area: 17.8 cm2 LA dimension(2D): 3.6 cm RA A4 area: 11.5 cm2 TAPSE: 2.4 cm Time Measurements MV dec time: 0.31 sec Doppler Measurements & Calculations MV E max dani: 81.4 cm/sec Lat Peak E' Dani: 7.1 cm/sec Med Peak E' Dani: 6.9 cm/sec MV A max dani: 118.3 cm/sec E/E' lat: 11.5 E/E' med: 11.7 MV E/A: 0.69 MV V2 max: 127.5 cm/sec MV dec slope: 266.4 cm/sec2 Ao V2 max: 233.0 cm/sec MV max P.5 mmHg Ao max P.7 mmHg MV V2 mean: 87.4 cm/sec Ao V2 mean: 164.1 cm/sec MV mean P.4 mmHg Ao mean P.1 mmHg MV V2 VTI: 38.2 cm Ao V2 VTI: 47.8 cm MVA(VTI): 2.7 cm2 AV (velocity ratio): 0.80 AVELINO(I,D): 2.2 cm2 AVELINO(V,D): 2.0 cm2 LV V1 max: 173.5 cm/sec SV(LVOT): 102.9 ml PA V2 max: 94.0 cm/sec LV V1 max P.0 mmHg LV V1 mean P.3 mmHg LV V1 mean: 128.7 cm/sec LV V1 VTI: 38.2 cm TR max dani: 290.8 cm/sec TR max P.8 mmHg ECHO/Echo Complete W/ Contrast Interpretation Summary Normal LV size. Left ventricular systolic function is normal. The estimated ejection fraction is 70 %. Bioprosthetic aortic valve. Mean aortic valve gradient 12 mmHg. Contrast injection was performed. Ordering Physician: Ginette Oquendo Referring Physician: Alejandra Randhawa Performed By: Adina Brooks RDCS, RVT
== END | disposition home or self-care (01) ==
LOC: CVS 09:51
PROVIDERS: PCP Internal Medicine; Referring Provider Nurse Practitioner Gerontology; Visit Provider Nurse Practitioner Gerontology
DX: Z95.2 Presence of prosthetic heart valve (principal)
CPT/HCPCS: 93306; Q9957; A4216; C8929

== ENCOUNTER → 2023-05-31 | Outpatient (CLI) | payer MEDICARE, SELFPAY ==
[2023-05-31 11:25] LABS: AST(SGOT) 21 U/L (15-37); Alanine Aminotransfer ALT/SGPT 41 U/L (13-56); Albumin, Serum 3.7 g/dL (3.2-5.0); Alkaline Phosphatase 102 U/L (45-117); Bilirubin, Direct 0.12 mg/dL (0.00-0.30); Cholesterol 243 mg/dL (200); Globulin 3.8 g/dL (2.2-4.2); High Density Lipoprotein 43 mg/dL; Protein, Total 7.5 g/dL (6.4-8.2); Triglycerides 272 mg/dL; Very Low Density Lipoprotein 54 mg/dL (5-40)
== END | disposition home or self-care (01) ==
LOC: LAB 10:13
PROVIDERS: PCP Internal Medicine; Referring Provider Nurse Practitioner Gerontology; Visit Provider Nurse Practitioner Gerontology
DX: E78.00 Pure hypercholesterolemia, unspecified (principal)
CPT/HCPCS: 36415; 80061; 80076

== ENCOUNTER → 2024-05-23 | Outpatient (CLI) | payer MEDICARE, SELFPAY ==
--- NOTE | 2024-05-23 08:50 | ECHOCS_ITS ---
Reason For Study Reason For Study: PROSTHETIC HEART VALVE Procedure This was a 2D Doppler, Color Flow transthoracic echocardiogram. The study was technically difficult. DUE TO BODY HABITUS. Contrast injection was performed. Exam performed in department. Left Ventricle Normal LV size. Left ventricular systolic function is normal. The left ventricular ejection fraction is 65 %. No regional wall motion abnormalities noted. Right Ventricle Normal RV size. Normal systolic function. Atria The left atrium is mildly enlarged. Normal right atrium. Mitral Valve Normal mitral valve. Tricuspid Valve Normal tricuspid valve. Aortic Valve Peak aortic valve gradient 22 mmHg. Mean aortic valve gradient 11 mmHg. Bioprosthetic aortic valve. Pulmonic Valve Normal pulmonic valve. Great Vessels Normal aortic root. The pulmonary artery is normal size. Inferior vena cava collapse with respiration. Pericardium/Pleural No pericardial effusion. Medication 22 gauge I.V. with prn adaptor inserted into right arm. Diluted definity 1.5ml given slow IV push to enhance endocardial definition. MMode/2D Measurements & Calculations LVIDd: 4.4 cm IVSd: 1.1 cm LVOT diam: 1.9 cm LVIDs: 2.5 cm LVPWd: 1.1 cm RVDd: 3.4 cm FS: 43.1 % LVOT area: 2.9 cm2 Ao root diam: 3.0 cm LAV(MOD-bp): 78.7 ml LVAd ap4: 35.8 cm2 LAV(MOD-bp) Indexed: 40.9 ml/m2 LVLd ap4: 8.9 cm LAV(MOD-sp2): 70.5 ml EDV(MOD-sp4): 118.8 ml LAV(MOD-sp4): 73.7 ml EDV(sp4-el): 122.0 ml LVAs ap4: 18.2 cm2 LVLs ap4: 7.2 cm ESV(MOD-sp4): 39.9 ml ESV(sp4-el): 39.4 ml EF(MOD-sp4): 66.4 % EF(sp4-el): 67.7 % LVAd ap2: 27.3 cm2 SV(MOD-sp4): 78.9 ml SV(MOD-sp2): 47.6 ml LVLd ap2: 8.3 cm SI(MOD-sp4): 41.0 ml/m2 SI(MOD-sp2): 24.7 ml/m2 EDV(MOD-sp2): 77.3 ml EDV(sp2-el): 75.9 ml LVAs ap2: 15.9 cm2 LVLs ap2: 7.1 cm ESV(MOD-sp2): 29.8 ml ESV(sp2-el): 30.4 ml EF(MOD-sp2): 61.5 % SV(sp4-el): 82.5 ml LA dimension(2D): 3.6 cm LA A4 area: 23.6 cm2 RA A4 area: 16.5 cm2 TAPSE: 3.0 cm Time Measurements MV dec time: 0.14 sec Doppler Measurements & Calculations MV E max dain: 98.8 cm/sec Lat Peak E' Dani: 5.8 cm/sec Med Peak E' Dani: 6.4 cm/sec MV A max dani: 100.5 cm/sec E/E' lat: 17.0 E/E' med: 15.5 MV E/A: 0.98 Ao V2 max: 237.5 cm/sec AI max dain: 338.8 cm/sec MV dec slope: 721.0 cm/sec2 Ao max P.6 mmHg AI max P.0 mmHg Ao V2 mean: 157.0 cm/sec Ao mean P.2 mmHg AI dec slope: 355.1 cm/sec2 Ao V2 VTI: 52.5 cm AI P1/2t: 279.4 msec AV (velocity ratio): 0.78 AVELINO(I,D): 2.3 cm2 AVELINO(V,D): 2.1 cm2 LV V1 max: 171.1 cm/sec SV(LVOT): 121.2 ml PA V2 max: 92.6 cm/sec LV V1 max P.7 mmHg LV V1 mean P.7 mmHg LV V1 mean: 121.4 cm/sec LV V1 VTI: 41.2 cm ECHO/Echo Complete W/ Contrast Interpretation Summary Normal LV size. Left ventricular systolic function is normal. The left ventricular ejection fraction is 65 %. Bioprosthetic aortic valve. Mean aortic valve gradient 11 mmHg. Ordering Physician: Reggie Olguin Referring Physician: Alejandra Randhawa Performed By: Delisa Ascencio, RDCS, RVT
== END | disposition home or self-care (01) ==
LOC: CVS 08:49
PROVIDERS: PCP Internal Medicine; Referring Provider Internal Medicine Cardiovascular Disease; Visit Provider Internal Medicine Cardiovascular Disease
DX: Z95.2 Presence of prosthetic heart valve (principal)
CPT/HCPCS: 93306; Q9957; A4216; C8929

== ENCOUNTER → 2024-07-05 | Outpatient (CLI) | payer MEDICARE, SELFPAY ==
--- NOTE | 2024-07-05 14:20 | RAD_ITS ---
PROCEDURE: CHEST PA AND LATERAL 07/05/2024 REASON FOR EXAM: SOB TECHNIQUE: Frontal and lateral views of the chest. COMPARISON: No relevant prior FINDINGS: Lungs: Bilateral prominent pulmonary vasculature. Pleura: Small bilateral pleural effusions blunt the lateral and posterior costophrenic angles. Heart: Mild cardiac enlargement. Mediastinum/Argenis: Unremarkable. Great vessels: Atherosclerotic and mildly tortuous aorta. Stent graft near the aortic root. Bones/soft tissues: Multilevel spondylosis. RAD/Chest PA and Lateral IMPRESSION: Findings consistent with pulmonary venous congestion. Reading Location: [facility]
== END | disposition home or self-care (01) ==
LOC: RAD 13:54
PROVIDERS: PCP Internal Medicine; Referring Provider Physician Assistant Medical; Visit Provider Physician Assistant Medical
DX: R06.02 Shortness of breath (principal)
CPT/HCPCS: 71046

== ENCOUNTER → 2024-07-13 | Outpatient (CLI) | payer MEDICARE, SELFPAY ==
[2024-07-13 09:56] LABS: Anion Gap 10 (5-15); BUN 15 mg/dL (4-19); BUN/Creat Ratio 14.9 RATIO (10-20); Calcium,Total 10.5 mg/dL (7.6-11.0); Carbon Dioxide 28.4 mmol/L (21.0-32.0); Chloride 106 mmol/L (98-108); Creatinine, Serum 1.03 mg/dL (0.70-1.20); EST Glomerular Filtration Rate 55 (>60); Glucose 156 mg/dL (70-99); Potassium 3.3 mmol/L (3.3-5.1); Sodium Level 145 mmol/L (133-145)
== END | disposition home or self-care (01) ==
LOC: LAB 08:32
PROVIDERS: PCP Internal Medicine; Referring Provider Physician Assistant Medical; Visit Provider Physician Assistant Medical
DX: R06.02 Shortness of breath (principal)
CPT/HCPCS: 36415; 80048

== ENCOUNTER 2024-08-01 08:18 | Inpatient (IN) | payer MEDICARE, SELFPAY ==
[2024-08-01] VITALS (20 sets, daily range): BP systolic 151–190; BP diastolic 46–79; PULSE 61–95; RESP 16–21; TEMP 36.3–36.6; O2SAT 87–97; BMI 41.1; BMI 40.6
--- NOTE | 2024-08-01 09:01 | EKG12_ITS ---
Test Reason : SOB Blood Pressure : */* mmHG Vent. Rate : 67 BPM Atrial Rate : 67 BPM P-R Int : 172 ms QRS Dur : 168 ms QT Int : 474 ms P-R-T Axes : 50 82 26 degrees QTcB Int : 500 ms Normal sinus rhythm Right bundle branch block Abnormal ECG Confirmed by MICHAEL OLSON ([id number]), newspaper or periodical editor NIHARIKA LOUIE ([id number]) on 08/06/2024 8:06:11 AM Referred By: Confirmed By: MICHAEL OLSON
--- NOTE | 2024-08-01 09:06 | EDS_ITS ---
HPI History of Present Illness Chief Complaint: Shortness of Breath Narrative Narrative: Chief complaint and HPI: Shortness of breath. Chief complaint and HPI: Shortness of breath. 83-year-old female with history of severe aortic stenosis, CAD, history of TAVR, CHF presents for evaluation of shortness of breath. Patient states that she has had continuous shortness of breath since May. States in May she was diagnosed with pneumonia. States she was treated outpatient with antibiotics. Patient states that she has been having increased swelling in her bilateral lower extremities. States she has been taking her home diuretics. She states that she does not check her daily weight however feels like she has gained some. Shortness of breath is worse with exertion and with lying flat. 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 Pulmonology is concerned about CHF and sent her here to the emergency department to be evaluated for possible IV Lasix. She denies any fever, chills, URI symptoms, chest pain. Denies a history of DVT/PE, blood clotting disorder, recent trauma or surgery, exogenous estrogen use, unilateral leg swelling, known malignancy, travel. Review of systems: See HPI Medications: As listed on the chart Allergies: As listed on the chart PFSH: Per chart Vital signs: As listed on the chart. Reviewed. Physical exam: Gen: A&O x3, NAD Head: Normocephalic, atraumatic Eyes: No sclera icterus, conjunctiva clear ENT: Moist mucous membranes Neck: Trachea midline, No JVD CV: RRR, no murmurs, +2 pitting peripheral edema from the feet to the mid calf Resp: Lungs CTA BL but diminished in the bilateral bases, no w/r/c GI: Abd soft, non-distended, non-tender, no r/r/g Musc: Full ROM, no deformity Skin: Warm, dry Neuro: Alert, oriented, grossly intact, sensation intact Psych: Cooperative, appropriate mood and affect [facility] Medical History Nonrheumatic aortic (valve) stenosis Atherosclerosis of coronary artery of [place] heart without angina pectoris Obesity Atherosclerotic heart disease of [place] coronary artery with unstable angina pectoris OPHELIA (obstructive sleep apnea) Essential hypertension Fatigue Family history of hypertension Exertional shortness of breath Exertional chest pain Dyspnea on exertion Dizziness and giddiness Hyperlipidemia Carotid bruit Diabetes mellitus Hypokalemia Home Medications ?Medication ?Instructions ?Recorded ?Last Taken ?Type albuterol sulfate 90 mcg/actuation 1 puff inhalation Q 4H PRN PRN 08/06/16 Unknown History aerosol inhaler Asthma cholecalciferol (vitamin D3) 25 1,000 unit PO DAILY 07/31/24 History mcg (1,000 unit) tablet montelukast 10 mg tablet 10 mg PO DAILY 08/06/1607/06 History omega-3 fatty acids-fish oil 300 1 ea PO DAILY 7 07/31/24 History mg-1,000 mg capsule vitamin A 2,400 mcg capsule 8,000 unit PO DAILY Unknown History vitamin E mixed 1,000 unit capsule 1,000 unit PO DAILY 08/06/16 Unknown History multivitamin 1 tab PO DAILY 02/16/1707/06 History aspirin 81 mg tablet,delayed 81 mg PO DAILY@0800 #90 t abs 02/11/22 08/01/24 Rx release zinc gluconate 50 mg tablet 50 mg PO DAILY 02/11/22 Un known History lisinopril 40 mg tablet 40 mg PO DAILY #90 tabs 01/0608/01/24 Rx ezetimibe 10 mg tablet (Zetia) 10 mg PO DAILY #90 tabs 04/12/24 08/01/24 Rx furosemide 40 mg tablet 40 mg PO DAILY #90 tabs 08/2908/01/24 Rx cetirizine 10 mg tablet 10 mg PO QDAY PRN allergy sy mptoms 04/17/24 07/31/24 History magnesium 250 mg tablet 250 mg PO DAILY 04/17/24 History rosuvastatin 5 mg tablet 5 mg PO DAILY 04/17/2407/30 History diphenhydramine HCl 25 mg capsule 25 mg PO QHS PRN all ergic reaction 07/05/24 07/31/24 History (Benadryl) fluticasone propionate 50 2 spray intranasal DAILY PRN 07/05/24 08/01/24 History mcg/actuation nasal allergy symptoms spray,suspension (Flonase Allergy Relief) levothyroxine 137 mcg tablet 137 mcg PO QDAY 07/05/24 08/01/24 History (Synthroid) turmeric root extract 500 mg 500 mg PO QDAY 07/05/24 U nknown History capsule amlodipine 5 mg tablet 5 mg PO DAILY #90 tabs 07/1308/01/24 Rx carvedilol 25 mg tablet 25 mg PO BID #180 tabs 07/3108/01/24 Rx spironolactone 25 mg tablet 25 mg PO DAILY #90 tabs 08/01/24 Rx fluticasone propionate 115 2 puff inhalation BID 08/0108/01/24 History mcg-salmeterol 21 mcg/actuation HFA inhaler (Advair HFA) Allergy/AdvReac Type Severity Reaction Status Date / Time Environmental Allergies: Allergy Anaphylaxis Verified 08/01/24 08:22 Uncoded rosuvastatin (From Crestor) AdvReac Intermediate Myalgias Verified 08/01/24 08:22 nifedipine AdvReac Unknown Verified 08/01/24 08:22 simvastatin (From Zocor) AdvReac Myalgias Verified 08/01/24 08:22 Family History Father , age 70 Colon cancer Mother , age 67 CAD (coronary artery disease) Hypertension Brother , age 59 CAD (coronary artery disease) Hypertension Brother Hypertension Diabetes Other Family history of hypertension Surgical History History of left heart catheterization (08/09/16) History of parathyroid surgery (02/2002) History of tubal ligation History of cholecystectomy H/O aortic valve replacement (12/22/16) Social History Smoking Status: Never smoker alcohol intake: never substance use type: does not use caffeine: Yes Type: tea Number of servings: 2 what type of physical activity do you participate in: walking frequency: 3-4 times per week duration: 15-30 minutes/day seatbelt use: always do you feel safe at home: Yes EXAM Physical Exam
--- NOTE | 2024-08-01 09:06 | ED.VIS.DYS ---
HPI History of Present Illness Chief Complaint: Shortness of Breath Narrative Narrative: Chief complaint and HPI: Shortness of breath. Chief complaint and HPI: Shortness of breath. 83-year-old female with history of severe aortic stenosis, CAD, history of TAVR, CHF presents for evaluation of shortness of breath. Patient states that she has had continuous shortness of breath since May. States in May she was diagnosed with pneumonia. States she was treated outpatient with antibiotics. Patient states that she has been having increased swelling in her bilateral lower extremities. States she has been taking her home diuretics. She states that she does not check her daily weight however feels like she has gained some. Shortness of breath is worse with exertion and with lying flat. Patient states that she saw her manager camp recently and was referred to pulmonology. Pulmonology is concerned about CHF and sent her here to the emergency department to be evaluated for possible IV Lasix. She denies any fever, chills, URI symptoms, chest pain. Denies a history of DVT/PE, blood clotting disorder, recent trauma or surgery, exogenous estrogen use, unilateral leg swelling, known malignancy, travel. Review of systems: See HPI Medications: As listed on the chart Allergies: As listed on the chart PFSH: Per chart Vital signs: As listed on the chart. Reviewed. Physical exam: Gen: A&O x3, NAD Head: Normocephalic, atraumatic Eyes: No sclera icterus, conjunctiva clear ENT: Moist mucous membranes Neck: Trachea midline, No JVD CV: RRR, no murmurs, +2 pitting peripheral edema from the feet to the mid calf Resp: Lungs CTA BL but diminished in the bilateral bases, no w/r/c GI: Abd soft, non-distended, non-tender, no r/r/g Musc: Full ROM, no deformity Skin: Warm, dry Neuro: Alert, oriented, grossly intact, sensation intact Psych: Cooperative, appropriate mood and affect [facility] Medical History Nonrheumatic aortic (valve) stenosis Atherosclerosis of coronary artery of [place] heart without angina pectoris Obesity Atherosclerotic heart disease of [place] coronary artery with unstable angina pectoris OPHELIA (obstructive sleep apnea) Essential hypertension Fatigue Family history of hypertension Exertional shortness of breath Exertional chest pain Dyspnea on exertion Dizziness and giddiness Hyperlipidemia Carotid bruit Diabetes mellitus Hypokalemia Home Medications ?Medication ?Instructions ?Recorded ?Last Taken ?Type albuterol sulfate 90 mcg/actuation 1 puff inhalation Q4H PRN PRN 08/06/16 Unknown History aerosol inhaler Asthma cholecalciferol (vitamin D3) 25 1,000 unit PO DAILY 08/06/16 07/31/24 History mcg (1,000 unit) tablet montelukast 10 mg tablet 10 mg PO DAILY 08/06/16 07/31/24 History omega-3 fatty acids-fish oil 300 1 ea PO DAILY 08/06/16 07/31/24 History mg-1,000 mg capsule vitamin A 2,400 mcg capsule 8,000 unit PO DAILY 08/06/16 Unknown History vitamin E mixed 1,000 unit capsule 1,000 unit PO DAILY 08/06/16 Unknown History multivitamin 1 tab PO DAILY 02/16/17 07/28/24 History aspirin 81 mg tablet,delayed 81 mg PO DAILY@0800 #90 tabs 02/11/22 08/01/24 Rx release zinc gluconate 50 mg tablet 50 mg PO DAILY 02/11/22 Unknown History lisinopril 40 mg tablet 40 mg PO DAILY #90 tabs 01/26/24 08/01/24 Rx ezetimibe 10 mg tablet (Zetia) 10 mg PO DAILY #90 tabs 04/12/24 08/01/24 Rx furosemide 40 mg tablet 40 mg PO DAILY #90 tabs 04/12/24 08/01/24 Rx cetirizine 10 mg tablet 10 mg PO QDAY PRN allergy symptoms 04/17/24 07/31/24 History magnesium 250 mg tablet 250 mg PO DAILY 04/17/24 07/31/24 History rosuvastatin 5 mg tablet 5 mg PO DAILY 04/17/24 07/30/24 History diphenhydramine HCl 25 mg capsule 25 mg PO QHS PRN allergic reaction 07/05/24 07/31/24 History (Benadryl) fluticasone propionate 50 2 spray intranasal DAILY PRN 07/05/24 08/01/24 History mcg/actuation nasal allergy symptoms spray,suspension (Flonase Allergy Relief) levothyroxine 137 mcg tablet 137 mcg PO QDAY 07/05/24 08/01/24 History (Synthroid) turmeric root extract 500 mg 500 mg PO QDAY 07/05/24 Unknown History capsule amlodipine 5 mg tablet 5 mg PO DAILY #90 tabs 07/13/24 08/01/24 Rx carvedilol 25 mg tablet 25 mg PO BID #180 tabs 07/31/24 08/01/24 Rx spironolactone 25 mg tablet 25 mg PO DAILY #90 tabs 07/31/24 08/01/24 Rx fluticasone propionate 115 2 puff inhalation BID 08/01/24 08/01/24 History mcg-salmeterol 21 mcg/actuation HFA inhaler (Advair HFA) Allergy/AdvReac Type Severity Reaction Status Date / Time Environmental Allergies: Allergy Anaphylaxis Verified 08/01/24 08:22 Uncoded rosuvastatin (From Crestor) AdvReac Intermediate Myalgias Verified 08/01/24 08:22 nifedipine AdvReac Unknown Verified 08/01/24 08:22 simvastatin (From Zocor) AdvReac Myalgias Verified 08/01/24 08:22 Family History Father , age 70 Colon cancer Mother , age 67 CAD (coronary artery disease) Hypertension Brother , age 59 CAD (coronary artery disease) Hypertension Brother Hypertension Diabetes Other Family history of hypertension Surgical History History of left heart catheterization (08/09/16) History of parathyroid surgery (02/2002) History of tubal ligation History of cholecystectomy H/O aortic valve replacement (12/22/16) Social History Smoking Status: Never smoker alcohol intake: never substance use type: does not use caffeine: Yes Type: tea Number of servings: 2 what type of physical activity do you participate in: walking frequency: 3-4 times per week duration: 15-30 minutes/day seatbelt use: always do you feel safe at home: Yes EXAM Physical Exam Const Vital Signs: 08/01/24 08:20 08/01/24 08:40 08/01/24 08:43 Temperature 97.8 F Temperature Source Oral Pulse Rate 78 Respiratory Rate 20 H Respiratory Effort Respiratory Depth Respiratory Pattern Blood Pressure 190/52 H Blood Pressure Mean 98 Pulse Ox 87 96 93 Oxygen Delivery Method Room Air Nasal Cannula Room Air Oxygen Flow Rate (L/min) 2 08/01/24 09:00 08/01/24 09:09 08/01/24 09:11 Temperature Temperature Source Pulse Rate Respiratory Rate Respiratory Effort Respiratory Depth Respiratory Pattern Blood Pressure Blood Pressure Mean Pulse Ox 90 89 93 Oxygen Delivery Method Room Air Room Air Nasal Cannula Oxygen Flow Rate (L/min) 2 08/01/24 09:11 08/01/24 09:18 08/01/24 09:34 Temperature 97.7 F L Temperature Source Oral Pulse Rate 82 67 Respiratory Rate 16 17 Respiratory Effort Normal Respiratory Depth Normal Respiratory Pattern Normal Normal Blood Pressure 156/79 H Blood Pressure Mean 104 Pulse Ox 94 Oxygen Delivery Method Nasal Cannula Nasal Cannula Oxygen Flow Rate (L/min) 2 2 08/01/24 10:00 08/01/24 11:00 Temperature Temperature Source Pulse Rate 61 65 Respiratory Rate 16 16 Respiratory Effort Respiratory Depth Respiratory Pattern Blood Pressure 173/54 H 166/60 H Blood Pressure Mean 93 95 Pulse Ox 95 95 Oxygen Delivery Method Room Air Oxygen Flow Rate (L/min) MDM MDM MDM Narrative Medical decision making narrative: 83-year-old female with history of severe aortic stenosis, CAD, history of TAVR, CHF presents for evaluation of shortness of breath. Patient states that she has had continuous shortness of breath since May. Associated symptom is bilateral lower extremity swelling. On chart review, patient saw cardiology on 07/13/2024. They increased her Lasix to 40 mg twice daily and added spironolactone 25 mg daily. She had an echocardiogram on 05/23/2024 showed EF of 65%. Bioprosthetic aortic valve and mean gradient of 11 mmHg. Differential diagnosis includes but is not limited to CHF exacerbation, pneumonia, suspect less likely ACS or PE however in the differential. DuoNeb ordered for symptomatic shortness of breath. On presentation, patient is hypertensive with SBP in the 190s. She is currently on room air without hypoxia. Hydralazine ordered however blood pressure improved without having to be given. Respiratory/cardiac workup ordered. Patient became hypoxic on room air. Placed on 2L nasal cannula. EKG and chest x-ray reviewed see below. Chest x-ray concerning for CHF exacerbation. Patient has anemia with a hemoglobin 11.7. Platelets unremarkable. D-dimer 0.56 however negative per age adjustment. BMP shows hypokalemia of 3. P.o. potassium ordered. No ALLIE. Will add on magnesium level. Magnesium level 1.8. Troponin 23 x 2. BNP elevated 2361. Patient's symptoms are secondary to a CHF exacerbation. IV Lasix ordered. Patient was updated of all the results. Plan is for admission. She confirmed understand the plan. Patient was accepted by the hospitalist service. EKG: Interpreted by me/EM physician: EKG shows normal sinus rhythm with right bundle branch block. Heart rate 67. Diagnostic: Interpreted by me/EM physician: Chest x-ray shows cardiomegaly with vascular congestion, bilateral pleural effusions. Radiology in agreement. Impression: 1. CHF exacerbation 2. Anemia 3. Acute hypoxia requiring oxygen secondary to #1 Lab Data Labs: Laboratory Results - last 24 hr 08/01/24 08/01/24 09:05 11:15 WBC 6.2 RBC 4.21 Hgb 11.7 L Hct 36.6 L MCV 86.9 MCH 27.8 MCHC 32.0 RDW Std Deviation 47.7 H RDW Coeff of [place] 15.0 H Plt Count 197 MPV 11.4 Immature Gran % (Auto) 0.500 Neut % (Auto) 68.2 Lymph % (Auto) 18.8 L [place] % (Auto) 10.1 H Eos % (Auto) 1.8 Baso % (Auto) 0.6 Absolute Neuts (auto) 4.2 Absolute Lymphs (auto) 1.17 Nucleated RBC % 0 D-Dimer Quant (PE/DVT) 0.56 H* Sodium 144 Potassium 3.0 L Chloride 103 Carbon Dioxide 26.1 Anion Gap 14 BUN 13 Creatinine 0.96 Estim Creat Clear Calc 47.52 L Est GFR (MDRD) Non-Af 59 L BUN/Creatinine Ratio 13.8 Glucose 117 H Calcium 10.2 Magnesium 1.8 Troponin T High Sens 23 H Troponin T Hi Sens 2 Hr 23 H NT pro BNP II 2361 H Radiography Diagnostic Testing: Clinical Impression(s) from Imaging Studies Chest X-Ray 08/01/24 09:15 IMPRESSION: Cardiomegaly and CHF with bibasilar atelectasis and blunting of both costophrenic angles worse at the left lung base. Reading Location: [facility] Discharge Plan Disposition Disposition: Acute Care Hospital [facility] Discharge Date/Time: 08/01/24 13:20
--- NOTE | 2024-08-01 09:15 | RAD_ITS ---
PROCEDURE: CHEST PA AND LATERAL 08/01/2024 REASON FOR EXAM: SHORTNESS OF BREATH TECHNIQUE: Frontal and lateral views of the chest. COMPARISON: July 05, 2024. FINDINGS: Hardware: EKG electrodes are seen. Heart: Heart size is moderately enlarged. Atherosclerotic calcification of the aortic arch. Mediastinum: The mediastinal contour is unremarkable. Lungs: Vascular congestion and mild CHF. Blunting of both costophrenic angles worse on the left side with bibasilar atelectasis. Bones: Degenerative changes are identified within the thoracic spine. RAD/Chest PA and Lateral IMPRESSION: Cardiomegaly and CHF with bibasilar atelectasis and blunting of both costophren ic angles worse at the left lung base. Reading Location: [place] [id number]
[2024-08-01] MEDS: Ipratropium/Albuterol Sulfate 3 ML AMPUL.NEB INHALATION (09:22)
[2024-08-01 09:30] LABS: Absolute Lymphocyte Count 1.17 X10^3/uL (0.83-4.51); Absolute Neutrophil Count 4.2 X10^3/uL (2.0-7.7); Basophil# 0.04 X10^3/uL; Basophil% 0.6 % (0-1); Eosinophil# 0.11 X10^3/uL; Eosinophils% 1.8 % (0-5); Hematocrit 36.6 % (37-47); Hemoglobin 11.7 g/dL (12.0-15.0); Lymphocyte # 1.17 X10^3/ul (0.83-4.51); Lymphocyte % 18.8 % (19-41); Mean Corpuscular Hgb 27.8 pg (27.0-32.0); Mean Corpuscular Volume 86.9 fL (81-99); Mean Platelet Vol. 11.4 fl (6.2-12.0); Monocyte# 0.63 X10^3/uL; Monocyte% 10.1 % (0-10); NRBC Flagged by Analyzer 0 % (0-5); Neutrophil # 4.24 X10^3/uL (2.7-7.7); Neutrophil % 68.2 % (47-70); Platelet Count 197 K/mm3 (150-450); RBC Distribution Width SD 47.7 fl (35.1-43.9); Red Blood Count 4.21 M/mm3 (4.2-5.4); White Blood Count 6.2 K/mm3 (4.4-11.0)
[2024-08-01 09:47] LABS: D-Dimer Quantitative (DVT/PE) 0.56 FEU/ug/m (0.27-0.49)
[2024-08-01 10:10] LABS: Troponin T High Sensitivity 23 ng/L (<=14)
[2024-08-01 10:26] LABS: Anion Gap 14 (5-15); BUN 13 mg/dL (4-19); BUN/Creat Ratio 13.8 RATIO (10-20); Calcium,Total 10.2 mg/dL (7.6-11.0); Carbon Dioxide 26.1 mmol/L (21.0-32.0); Chloride 103 mmol/L (98-108); Creatinine, Serum 0.96 mg/dL (0.70-1.20); EST Glomerular Filtration Rate 59 (>60); Estimated Creatinine Clearance 47.52 ml/min (50-250); Glucose 117 mg/dL (70-99); Pro- Brain NATRIURETIC PEPTIDE 2361 pg/mL (<=1800); Sodium Level 144 mmol/L (133-145)
[2024-08-01 11:47] LABS: Troponin T High Sens 2 HR 23 ng/L (<=14)
--- NOTE | 2024-08-01 11:59 | HP.PCM.HOS_ITS ---
HPI - General HPI Narrative FRANK ODONNELL, is a 83 F who presents [facility] Medical History Nonrheumatic aortic (valve) stenosis Atherosclerosis of coronary artery of [place] heart without angina pectoris Obesity Atherosclerotic heart disease of [place] coronary artery with unstable angina pectoris OPHELIA (obstructive sleep apnea) Essential hypertension Fatigue Family history of hypertension Exertional shortness of breath Exertional chest pain Dyspnea on exertion Dizziness and giddiness Hyperlipidemia Carotid bruit Diabetes mellitus Hypokalemia Home Medications ?Medication ?Instructions ?Recorded ?Last Taken ?Type albuterol sulfate 90 mcg/actuation 1 puff inhalation Q 4H PRN PRN 08/06/16 Unknown History aerosol inhaler Asthma biotin 5 mg tablet 5 mg PO DAILY 08/06/16 Unkno wn History cholecalciferol (vitamin D3) 25 1,000 unit PO DAILY Unknown History mcg (1,000 unit) tablet montelukast 10 mg tablet 10 mg PO DAILY 08/06/16 Unkn own History omega-3 fatty acids-fish oil 300 1 ea PO DAILY 7 Unknown History mg-1,000 mg capsule vitamin A 2,400 mcg capsule 8,000 unit PO DAILY Unknown History vitamin E mixed 1,000 unit capsule 1,000 unit PO DAILY 08/06/16 Unknown History multivitamin 1 tab PO QDAY 02/16/17 Unkno wn History aspirin 81 mg tablet,delayed 81 mg PO DAILY@0800 #90 t abs 02/11/22 Unknown Rx release clobetasol 0.05 % topical ointment 1 applic topical DA CORINA 02/11/22 Unknown History zinc gluconate 50 mg tablet 50 mg PO DAILY 02/11/22 Un known History lisinopril 40 mg tablet 40 mg PO DAILY #90 tabs 01/06 03/30 Unknown Rx ezetimibe 10 mg tablet (Zetia) 10 mg PO DAILY #90 tabs 04/12/24 Unknown Rx furosemide 40 mg tablet 40 mg PO DAILY #90 tabs 08/29 Unknown Rx cetirizine 10 mg tablet 10 mg PO QDAY PRN 04/17/24 U nknown History coenzyme Q10 30 mg capsule (Co 30 mg PO QDAY 04/17/24 Unknown History Q-10) magnesium 250 mg tablet 250 mg PO QDAY 04/17/24 Unkn own History rosuvastatin 5 mg tablet 5 mg PO .Mon/Thurs 04/17/24 Unknown History diphenhydramine HCl 25 mg capsule 25 mg PO QHS PRN 03/31 Unknown History (Benadryl) fluticasone propionate 50 2 spray intranasal QDAY 03/31 Unknown History mcg/actuation nasal spray,suspension (Flonase Allergy Relief) levothyroxine 137 mcg tablet 137 mcg PO QDAY 07/05/24 Unknown History (Synthroid) turmeric root extract 500 mg 500 mg PO QDAY 07/05/24 U nknown History capsule amlodipine 5 mg tablet 5 mg PO DAILY #90 tabs 07/13 Unknown Rx carvedilol 25 mg tablet 25 mg PO BID #180 tabs 07/31 Unknown Rx spironolactone 25 mg tablet 25 mg PO DAILY #90 tabs Unknown Rx Allergy/AdvReac Type Severity Reaction Status Date / Time Environmental Allergies: Allergy Anaphylaxis Verified 08/01/24 08:22 Uncoded rosuvastatin (From Crestor) AdvReac Intermediate Myalgias Verified 08/01/24 08:22 nifedipine AdvReac Unknown Verified 08/01/24 08:22 simvastatin (From Zocor) AdvReac Myalgias Verified 08/01/24 08:22 Family History Father , age 70 Colon cancer Mother , age 67 CAD (coronary artery disease) Hypertension Brother , age 59 CAD (coronary artery disease) Hypertension Brother Hypertension Diabetes Other Family history of hypertension Surgical History History of left heart catheterization (08/09/16) History of parathyroid surgery (02/2002) History of tubal ligation History of cholecystectomy H/O aortic valve replacement (12/22/16) Social History Smoking Status: Never smoker alcohol intake: never substance use type: does not use caffeine: Yes Type: tea Number of servings: 2 what type of physical activity do you participate in: walking frequency: 3-4 times per week duration: 15-30 minutes/day seatbelt use: always do you feel safe at home: Yes Vital Signs Vital Signs Vital Signs: 08/01/24 08:20 08/01/24 08:40 08/01/24 08:43 Temperature 97.8 F Temperature Source Oral Pulse Rate 78 Respiratory Rate 20 H Respiratory Effort Respiratory Depth Respiratory Pattern Blood Pressure 190/52 H Blood Pressure Mean 98 Pulse Ox 87 96 93 Oxygen Delivery Method Room Air Nasal Cannula Room Air Oxygen Flow Rate (L/min) 2 08/01/24 09:00 08/01/24 09:09 08/01/24 09:11 Temperature Temperature Source Pulse Rate Respiratory Rate Respiratory Effort Respiratory Depth Respiratory Pattern Blood Pressure Blood Pressure Mean Pulse Ox 90 89 93 Oxygen Delivery Method Room Air Room Air Nasal Cannula Oxygen Flow Rate (L/min) 2 08/01/24 09:11 08/01/24 09:18 08/01/24 09:34 Temperature 97.7 F L Temperature Source Oral Pulse Rate 82 67 Respiratory Rate 16 17 Respiratory Effort Normal Respiratory Depth Normal Respiratory Pattern Normal Normal Blood Pressure 156/79 H Blood Pressure Mean 104 Pulse Ox 94 Oxygen Delivery Method Nasal Cannula Nasal Cannula Oxygen Flow Rate (L/min) 2 2 08/01/24 10:00 08/01/24 11:00 Temperature Temperature Source Pulse Rate 61 65 Respiratory Rate 16 16 Respiratory Effort Respiratory Depth Respiratory Pattern Blood Pressure 173/54 H 166/60 H Blood Pressure Mean 93 95 Pulse Ox 95 95 Oxygen Delivery Method Room Air Oxygen Flow Rate (L/min) Weight Weight: 95.481 kg Body Mass Index (BMI) 41.1 Results Lab / Micro Data 08/01/24 09:05 08/01/24 09:05 Labs: Laboratory Results - last 24 hr 08/01/24 09:05: WBC 6.2, RBC 4.21, Hgb 11.7 L, Hct 36.6 L, MCV 86.9, MCH 27.8, MCHC 32.0, RDW Std Deviation 47.7 H, RDW Coeff of [place] 15.0 H, Plt Count 197, MPV 11.4, Immature Gran % (Auto) 0.500, Neut % (Auto) 68.2, Lymph % (Auto) 18.8 L, M [place] % (Auto) 10.1 H, Eos % (Auto) 1.8, Baso % (Auto) 0.6, Absolute Neuts (auto) 4.2, Absolute Lymphs (auto) 1.17, Nucleated RBC % 0, D-Dimer Quant (PE/DVT) 0.56 H*, Sodium 144, Potassium 3.0 L, Chloride 103, Carbon Dioxide 26.1, Anion Gap 14, BUN 13, Creatinine 0.96, Estim Creat Clear Calc 47.52 L, Est GFR (MDRD) Non- Af 59 L, BUN/Creatinine Ratio 13.8, Glucose 117 H, Calcium 10.2, Troponin T High Sens 23 H, NT pro BNP II 2361 H 08/01/24 11:15: Troponin T Hi Sens 2 Hr 23 H Imaging Radiology Impression Chest X-Ray 08/01/24 09:15 IMPRESSION: Cardiomegaly and CHF with bibasilar atelectasis and blunting of both costophrenic angles worse at the left lung base. Reading Location: [facility] Assessment & Plan Assessment/Plan PLAN: Plan Cardiomegaly and CHF with bibasilar atelectasis and blunting of both costophrenic angles worse at the left lung base.
--- NOTE | 2024-08-01 11:59 | PCM.HP.STD ---
[facility] - General General Date of Admission: 08/01/24 Date of Service: 08/01/24 Chief Complaint: Shortness of breath HPI Narrative FRANK ODONNELL, is a 83 F with past medical history seen in for coronary artery disease, severe aortic stenosis status post TAVR who presented with progressive shortness of breath. Per patient symptoms have been ongoing for the past couple of months. She reports shortness of breath with minimal activity as well as progressive swelling involving both lower extremities. 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 Imaging studies obtained in the ED demonstrated cardiomegaly and CHF with bibasilar atelectasis and blunting of both costophrenic angles with at the left angle base. Patient was also found to have markedly elevated proBNP. An assessment of acute congestive heart failure made admitted to monitored bed for subsequent management FORMERLY [facility] Medical History Nonrheumatic aortic (valve) stenosis Atherosclerosis of coronary artery of [place] heart without angina pectoris Obesity Atherosclerotic heart disease of [place] coronary artery with unstable angina pectoris OPHELIA (obstructive sleep apnea) Essential hypertension Fatigue Family history of hypertension Exertional shortness of breath Exertional chest pain Dyspnea on exertion Dizziness and giddiness Hyperlipidemia Carotid bruit Diabetes mellitus Hypokalemia Home Medications ?Medication ?Instructions ?Recorded ?Last Taken ?Type albuterol sulfate 90 mcg/actuation 1 puff inhalation Q4H PRN PRN 08/06/16 Unknown History aerosol inhaler Asthma cholecalciferol (vitamin D3) 25 1,000 unit PO DAILY 08/06/16 07/31/24 History mcg (1,000 unit) tablet montelukast 10 mg tablet 10 mg PO DAILY 08/06/16 07/31/24 History omega-3 fatty acids-fish oil 300 1 ea PO DAILY 08/06/16 07/31/24 History mg-1,000 mg capsule vitamin A 2,400 mcg capsule 8,000 unit PO DAILY 08/06/16 Unknown History vitamin E mixed 1,000 unit capsule 1,000 unit PO DAILY 08/06/16 Unknown History multivitamin 1 tab PO DAILY 02/16/17 07/28/24 History aspirin 81 mg tablet,delayed 81 mg PO DAILY@0800 #90 tabs 02/11/22 08/01/24 Rx release zinc gluconate 50 mg tablet 50 mg PO DAILY 02/11/22 Unknown History lisinopril 40 mg tablet 40 mg PO DAILY #90 tabs 01/26/24 08/01/24 Rx ezetimibe 10 mg tablet (Zetia) 10 mg PO DAILY #90 tabs 04/12/24 08/01/24 Rx furosemide 40 mg tablet 40 mg PO DAILY #90 tabs 04/12/24 08/01/24 Rx cetirizine 10 mg tablet 10 mg PO QDAY PRN allergy symptoms 04/17/24 07/31/24 History magnesium 250 mg tablet 250 mg PO DAILY 04/17/24 07/31/24 History rosuvastatin 5 mg tablet 5 mg PO DAILY 04/17/24 07/30/24 History diphenhydramine HCl 25 mg capsule 25 mg PO QHS PRN allergic reaction 07/05/24 07/31/24 History (Benadryl) fluticasone propionate 50 2 spray intranasal DAILY PRN 07/05/24 08/01/24 History mcg/actuation nasal allergy symptoms spray,suspension (Flonase Allergy Relief) levothyroxine 137 mcg tablet 137 mcg PO QDAY 07/05/24 08/01/24 History (Synthroid) turmeric root extract 500 mg 500 mg PO QDAY 07/05/24 Unknown History capsule amlodipine 5 mg tablet 5 mg PO DAILY #90 tabs 07/13/24 08/01/24 Rx carvedilol 25 mg tablet 25 mg PO BID #180 tabs 07/31/24 08/01/24 Rx spironolactone 25 mg tablet 25 mg PO DAILY #90 tabs 07/31/24 08/01/24 Rx fluticasone propionate 115 2 puff inhalation BID 08/01/24 08/01/24 History mcg-salmeterol 21 mcg/actuation HFA inhaler (Advair HFA) Allergy/AdvReac Type Severity Reaction Status Date / Time Environmental Allergies: Allergy Anaphylaxis Verified 08/01/24 08:22 Uncoded rosuvastatin (From Crestor) AdvReac Intermediate Myalgias Verified 08/01/24 08:22 nifedipine AdvReac Unknown Verified 08/01/24 08:22 simvastatin (From Zocor) AdvReac Myalgias Verified 08/01/24 08:22 Family History Father , age 70 Colon cancer Mother , age 67 CAD (coronary artery disease) Hypertension Brother , age 59 CAD (coronary artery disease) Hypertension Brother Hypertension Diabetes Other Family history of hypertension Surgical History History of left heart catheterization (08/09/16) History of parathyroid surgery (02/2002) History of tubal ligation History of cholecystectomy H/O aortic valve replacement (12/22/16) Social History Smoking Status: Never smoker alcohol intake: never substance use type: does not use caffeine: Yes Type: tea Number of servings: 2 what type of physical activity do you participate in: walking frequency: 3-4 times per week duration: 15-30 minutes/day seatbelt use: always do you feel safe at home: Yes ROS ROS Narrative GENERAL: denies fever, chills, night sweats, HEENT: denies headache, sinus congestion, RESPIRATORY: production, shortness of breath, dyspnea on exertion CARDIAC: , orthopnea, PND GASTROINTESTINAL: denies abdominal pain, nausea, GENITOURINARY: denies dysuria, urgency, frequency, heamaturia EXTREMITY: denies swelling MUSCULOSKELETAL: denies current joint pain or tenderness NEUROLOGIC: denies focal numbness, weakness, tingling HEMATOLOGIC: denies easy bruising and/or hemorrhage INTEGUMENT: denies rashes PSYCHIATRIC: denies suicidal or homicidal ideation Vital Signs Vital Signs Vital Signs: 08/01/24 08:20 08/01/24 08:40 08/01/24 08:43 Temperature 97.8 F Temperature Source Oral Pulse Rate 78 Respiratory Rate 20 H Respiratory Effort Respiratory Depth Respiratory Pattern Blood Pressure 190/52 H Blood Pressure Mean 98 Pulse Ox 87 96 93 Oxygen Delivery Method Room Air Nasal Cannula Room Air Oxygen Flow Rate (L/min) 2 08/01/24 09:00 08/01/24 09:09 08/01/24 09:11 Temperature Temperature Source Pulse Rate Respiratory Rate Respiratory Effort Respiratory Depth Respiratory Pattern Blood Pressure Blood Pressure Mean Pulse Ox 90 89 93 Oxygen Delivery Method Room Air Room Air Nasal Cannula Oxygen Flow Rate (L/min) 2 08/01/24 09:11 08/01/24 09:18 08/01/24 09:34 Temperature 97.7 F L Temperature Source Oral Pulse Rate 82 67 Respiratory Rate 16 17 Respiratory Effort Normal Respiratory Depth Normal Respiratory Pattern Normal Normal Blood Pressure 156/79 H Blood Pressure Mean 104 Pulse Ox 94 Oxygen Delivery Method Nasal Cannula Nasal Cannula Oxygen Flow Rate (L/min) 2 2 08/01/24 10:00 08/01/24 11:00 Temperature Temperature Source Pulse Rate 61 65 Respiratory Rate 16 16 Respiratory Effort Respiratory Depth Respiratory Pattern Blood Pressure 173/54 H 166/60 H Blood Pressure Mean 93 95 Pulse Ox 95 95 Oxygen Delivery Method Room Air Oxygen Flow Rate (L/min) Weight Weight: 95.481 kg Body Mass Index (BMI) 41.1 Physical Exam Narrative GENERAL: cooperative HEENT: Atraumatic; normocephalic EYES; Anicteric, Normal Conjunctiva NECK; supple, normal thyroid, RESPIRATORY: Diminished to auscultation CARDIOVASCULAR: Regular S1 S2, GI: soft, normoactive bowel sounds, : No Renal angle tenderness; EXTREMITIES: Bipedal edema MUSCULOSKELETAL: no muscle wasting NEURO: Awake; no lateralizing signs. SKIN: No Rash PSYCH; Flat affect Results Lab / Micro Data 08/01/24 09:05 08/01/24 09:05 Labs: Laboratory Results - last 24 hr 08/01/24 09:05: WBC 6.2, RBC 4.21, Hgb 11.7 L, Hct 36.6 L, MCV 86.9, MCH 27.8, MCHC 32.0, RDW Std Deviation 47.7 H, RDW Coeff of [place] 15.0 H, Plt Count 197, MPV 11.4, Immature Gran % (Auto) 0.500, Neut % (Auto) 68.2, Lymph % (Auto) 18.8 L, [place] % (Auto) 10.1 H, Eos % (Auto) 1.8, Baso % (Auto) 0.6, Absolute Neuts (auto) 4.2, Absolute Lymphs (auto) 1.17, Nucleated RBC % 0, D-Dimer Quant (PE/DVT) 0.56 H*, Sodium 144, Potassium 3.0 L, Chloride 103, Carbon Dioxide 26.1, Anion Gap 14, BUN 13, Creatinine 0.96, Estim Creat Clear Calc 47.52 L, Est GFR (MDRD) Non-Af 59 L, BUN/Creatinine Ratio 13.8, Glucose 117 H, Calcium 10.2, Troponin T High Sens 23 H, NT pro BNP II 2361 H 08/01/24 11:15: Troponin T Hi Sens 2 Hr 23 H Imaging Radiology Impression Chest X-Ray 08/01/24 09:15 IMPRESSION: Cardiomegaly and CHF with bibasilar atelectasis and blunting of both costophrenic angles worse at the left lung base. Reading Location: [facility]-IR-1 Assessment & Plan Assessment/Plan (1) Shortness of breath: PLAN: Plan Patient is an 83-year-old lady admitted with progressive shortness of breath imaging studies demonstrated features consistent with congestive heart failure. Admitted to a monitored bed for further management 1. Acute congestive heart failure with suspected preserved ejection fraction ? Patient admitted to a monitored bed treatment initiated with strict input and output, daily weight, low-sodium diet, fluid restriction and diuretic therapy with furosemide. As part of evaluation ordered 2D echo for LVEF assessment 2. Acute hypoxia Secondary to above patient placed on supplemental oxygen titrated to keep saturation greater than 90 3. Valvular heart disease ? With history of TAVR at [facility] in 2017 4. Class III obesity with BMI of 40.6 ? Complicating care, weight loss advised 5. Dyslipidemia ? Patient is on Zetia did continue 6. Allergic rhinitis ? Patient is on fluticasone discontinued home dose 7.Mild coronary artery disease ? Patient did not present with any anginal symptoms we will continue with monitoring 8. Diabetes mellitus type 2 ? Listed on patient history currently not on any therapeutics we will continue with monitoring 9. Obstructive sleep apnea ? Consistent use of PAP therapy encouraged 10. Hypokalemia ? Secondary to patient being on furosemide. Corrected low potassium per protocol repeat potassium levels ordered in a.m. for subsequent eval 11. Anemia ? Secondary to chronic disorder monitoring H&H and transfuse if patient becomes symptomatic or hemoglobin falls below 7 12. DVT prophylaxis ? Subcu heparin Advance planning; did discuss with the patient regarding advanced directives as well as CODE STATUS. Did explain the various scenarios involved ( FULL CODE, DNR CCA, DNR CCA with no intubation, and DNR CC and what each meant) patient elected to remain full code with CPR and intubation if warranted. Order was placed. Time spent on discussion 16 minutes. Charges/Coding Multi Select Codes Visit Charges Visit Charges: 40761 Init Hosp L3 Hospitalists' Procedures Procedures: 10169 Advncd Care Plan 30 Min
[2024-08-01] MEDS: Furosemide 40 MG/4 ML Vial IV (12:20)
[2024-08-01 12:27] LABS: Magnesium 1.8 mg/dL (1.5-2.2)
[2024-08-01] MEDS: Potassium Chloride Oral Soln 20 MEQ/15 ML UDC 40 MEQ PO (13:04)
--- NOTE | 2024-08-01 13:25 | ECHOCS_ITS ---
Reason For Study Reason For Study: CHF Procedure This was a 2D Doppler, Color Flow transthoracic echocardiogram. The study was technically difficult. Exam performed portable in patient room. Left Ventricle Normal left ventricle. The estimated ejection fraction is 55-60 %. Right Ventricle Normal right ventricle. Atria The left atrium is mildly enlarged. Normal right atrium. Mitral Valve Mild (1+) mitral valve insufficiency. Tricuspid Valve Normal tricuspid valve. Aortic Valve Bioprosthetic aortic valve With mild aortic stenosis Maximum pressure gradient of 31 mmHg With a mean pressure gradient of 16.5 mmHg Color-flow and Doppler revealed moderate aortic regurgitation. Pulmonic Valve The pulmonic valve is not well visualized. Great Vessels The aortic root is not well visualized. Pericardium/Pleural No pericardial effusion. Medication Diluted definity 1ml given slow IV push to enhance endocardial definition. MMode/2D Measurements & Calculations LVIDd: 5.0 cm IVSd: 1.1 cm LVOT diam: 1.8 cm LVIDs: 3.7 cm LVPWd: 1.5 cm RVDd: 3.4 cm FS: 25.4 % LVOT area: 2.6 cm2 Ao root diam: 3.3 cm LAV(MOD-bp): 80.7 ml LVAd ap4: 42.5 cm2 LAV(MOD-bp) Indexed: 42.3 ml/m2 LVLd ap4: 8.1 cm LAV(MOD-sp2): 80.9 ml EDV(MOD-sp4): 179.3 ml LAV(MOD-sp4): 76.6 ml EDV(sp4-el): 188.9 ml LVAs ap4: 23.2 cm2 LVLs ap4: 6.5 cm ESV(MOD-sp4): 68.0 ml ESV(sp4-el): 70.4 ml EF(MOD-sp4): 62.1 % EF(sp4-el): 62.7 % SV(MOD-sp4): 111.3 ml SV(sp4-el): 118.5 ml LA A4 area: 23.9 cm2 SI(MOD-sp4): 58.4 ml/m2 LA dimension(2D): 4.5 cm RA A4 area: 20.4 cm2 Time Measurements MV dec time: 0.16 sec Doppler Measurements & Calculations MV E max dani: 120.7 cm/sec Lat Peak E' Dani: 9.9 cm/sec Med Peak E' Dani: 7.1 cm/sec MV A max dani: 55.5 cm/sec E/E' lat: 12.2 E/E' med: 17.0 MV E/A: 2.2 MV V2 max: 132.4 cm/sec MV P1/2t max dani: 132.0 cm/sec Ao V2 max: 281.2 cm/sec MV max P.0 mmHg MV P1/2t: 62.8 msec Ao max P.7 mmHg MV V2 mean: 62.4 cm/sec MV dec slope: 615.8 cm/sec2 Ao V2 mean: 164.1 cm/sec MV mean P.0 mmHg MVA(P1/2t): 3.5 cm2 Ao mean P.5 mmHg MV V2 VTI: 33.6 cm Ao V2 VTI: 70.3 cm MVA(VTI): 3.2 cm2 AV (velocity ratio): 0.59 AVELINO(I,D): 1.5 cm2 AVELINO(V,D): 1.4 cm2 AI max dani: 418.3 cm/sec LV V1 max: 155.8 cm/sec MR max dani: 517.7 cm/sec AI max P.2 mmHg LV V1 max P.7 mmHg MR max P.2 mmHg LV V1 mean P.2 mmHg AI dec slope: 482.3 cm/sec2 LV V1 mean: 105.2 cm/sec AI P1/2t: 254.1 msec LV V1 VTI: 41.8 cm SV(LVOT): 107.8 ml PA V2 max: 90.0 cm/sec TR max dani: 340.9 cm/sec TR max P.5 mmHg ECHO/Echo Complete W/ Contrast Interpretation Summary The estimated ejection fraction is 55-60 %. Bioprosthetic aortic valve With mild aortic stenosis Maximum pressure gradient of 31 mmHg With a mean pressure gradient of 16.5 mmHg Color-flow and Doppler revealed moderate aortic regurgitation Mild MR Trivial tricuspid regurgitation. Ordering Physician: Nahun Diaz Performed By: Alexis Carter RCS
[2024-08-01] MEDS: Furosemide 100 MG/10 ML Vial 60 MG IV ×2 (14:31→22:35)
[2024-08-01] MEDS: Carvedilol 25 MG Tablet PO (16:28)
[2024-08-01] MEDS: Albuterol 2.5 MG/3 ML VIAL.NEB. INHALATION (20:58)
[2024-08-01] MEDS: Budesonide Respules 0.5 MG/2 ML AMPUL.NEB. INHALATION (20:58)
[2024-08-01] MEDS: Atorvastatin Calcium 10 MG Tablet PO (21:22)
[2024-08-01] MEDS: Heparin Injection (Vial) 5,000 UNIT/ML VIAL 5000 UNIT SC (21:23)
[2024-08-01] MEDS: 0.9% Saline Lock 10 ML Syringe IV (22:34)
[2024-08-02] VITALS (10 sets, daily range): BP systolic 137–173; BP diastolic 46–59; PULSE 66–81; RESP 16–18; TEMP 36.4–36.9; O2SAT 92–96; BMI 40.0
[2024-08-02] MEDS: Levothyroxine 137 MCG Tablet PO (05:47)
[2024-08-02 05:55] LABS: Absolute Lymphocyte Count 1.19 X10^3/uL (0.83-4.51); Absolute Neutrophil Count 5.1 X10^3/uL (2.0-7.7); Basophil# 0.03 X10^3/uL; Basophil% 0.4 % (0-1); Eosinophil# 0.14 X10^3/uL; Hematocrit 36.3 % (37-47); Hemoglobin 11.5 g/dL (12.0-15.0); Lymphocyte # 1.19 X10^3/ul (0.83-4.51); Lymphocyte % 16.7 % (19-41); Mean Corp Hgb Conc 31.7 g/dL (32-36); Mean Corpuscular Hgb 27.8 pg (27.0-32.0); Mean Corpuscular Volume 87.9 fL (81-99); Mean Platelet Vol. 11.5 fl (6.2-12.0); Monocyte% 9.8 % (0-10); NRBC Flagged by Analyzer 0 % (0-5); Neutrophil # 5.07 X10^3/uL (2.7-7.7); Platelet Count 209 K/mm3 (150-450); RBC Distribution Width SD 48.3 fl (35.1-43.9); Red Blood Count 4.13 M/mm3 (4.2-5.4); White Blood Count 7.1 K/mm3 (4.4-11.0)
[2024-08-02] MEDS: Furosemide 100 MG/10 ML Vial 60 MG IV ×3 (06:00→22:33)
[2024-08-02] MEDS: 0.9% Saline Lock 10 ML Syringe IV ×2 (06:00→22:33)
[2024-08-02 06:23] LABS: Anion Gap 15 (5-15); BUN 14 mg/dL (4-19); BUN/Creat Ratio 13.5 RATIO (10-20); Carbon Dioxide 28.4 mmol/L (21.0-32.0); Chloride 103 mmol/L (98-108); Creatinine, Serum 1.05 mg/dL (0.70-1.20); EST Glomerular Filtration Rate 53 (>60); Estimated Creatinine Clearance 42.79 ml/min (50-250); Glucose 94 mg/dL (70-99); Magnesium 1.7 mg/dL (1.5-2.2); Potassium 3.4 mmol/L (3.3-5.1); Sodium Level 146 mmol/L (133-145)
[2024-08-02 06:28] LABS: Phosphorus 3.7 mg/dL (2.7-4.5)
--- NOTE | 2024-08-02 08:52 | PCM.PN.HOSP ---
Reason for Visit Reason for Visit: Diagnoses Shortness of breath (08/01/24) Subjective Subjective Patient is an 83-year-old lady admitted with progressive shortness of breath and assessment of acute congestive heart failure made. Started on furosemide admitted to a monitored bed. Patient weight on admission was 95.4, currently down to 93.8. I's and O's and negative fluid balance of 400 mL Objective Data Objective Data Vital Signs: Vital Signs Temp Pulse Resp BP Pulse Ox O2 Del Method O2 Flow Rate 97.5 F L 68 18 163/56 H 95 CPAP 2 08/02/24 05:59 08/02/24 05:59 08/02/24 05:59 08/02/24 05:59 08/02/24 05:59 08/02/24 05:59 08/02/24 05:59 Oxygen Flow Rate (L/min) 2 Oxygen Delivery Method CPAP Weight: 93 kg Body Mass Index (BMI) 40.0 Intake & Output: Intake and Output for Last 24 Hours 07/31/24 08/01/24 08/02/24 23:59 23:59 23:59 Output Total 400 / 400 Balance -400 / -400 Lab / Micro Data 08/02/24 05:15 08/02/24 05:15 Labs: Laboratory Results - last 24 hr 08/01/24 09:05: WBC 6.2, RBC 4.21, Hgb 11.7 L, Hct 36.6 L, MCV 86.9, MCH 27.8, MCHC 32.0, RDW Std Deviation 47.7 H, RDW Coeff of [place] 15.0 H, Plt Count 197, MPV 11.4, Immature Gran % (Auto) 0.500, Neut % (Auto) 68.2, Lymph % (Auto) 18.8 L, [place] % (Auto) 10.1 H, Eos % (Auto) 1.8, Baso % (Auto) 0.6, Absolute Neuts (auto) 4.2, Absolute Lymphs (auto) 1.17, Nucleated RBC % 0, D-Dimer Quant (PE/DVT) 0.56 H*, Sodium 144, Potassium 3.0 L, Chloride 103, Carbon Dioxide 26.1, Anion Gap 14, BUN 13, Creatinine 0.96, Estim Creat Clear Calc 47.52 L, Est GFR (MDRD) Non-Af 59 L, BUN/Creatinine Ratio 13.8, Glucose 117 H, Calcium 10.2, Magnesium 1.8, Troponin T High Sens 23 H, NT pro BNP II 2361 H 08/01/24 11:15: Troponin T Hi Sens 2 Hr 23 H 08/02/24 05:15: WBC 7.1, RBC 4.13 L, Hgb 11.5 L, Hct 36.3 L, MCV 87.9, MCH 27.8, MCHC 31.7 L, RDW Std Deviation 48.3 H, RDW Coeff of [place] 15.0 H, Plt Count 209, MPV 11.5, Immature Gran % (Auto) 0.100, Neut % (Auto) 71.0 H, Lymph % (Auto) 16.7 L, [place] % (Auto) 9.8, Eos % (Auto) 2.0, Baso % (Auto) 0.4, Absolute Neuts (auto) 5.1, Absolute Lymphs (auto) 1.19, Nucleated RBC % 0, Sodium 146 H, Potassium 3.4, Chloride 103, Carbon Dioxide 28.4, Anion Gap 15, BUN 14, Creatinine 1.05, Estim Creat Clear Calc 42.79 L, Est GFR (MDRD) Non-Af 53 L, BUN/Creatinine Ratio 13.5, Glucose 94, Calcium 10.0, Phosphorus 3.7, Magnesium 1.7 Radiography Diagnostic Testing: Radiology Impression Chest X-Ray 08/01/24 09:15 IMPRESSION: Cardiomegaly and CHF with bibasilar atelectasis and blunting of both costophrenic angles worse at the left lung base. Reading Location: [facility]-IR-1 Echocardiogram 08/01/24 13:25 Interpretation Summary The estimated ejection fraction is 55-60 %. Bioprosthetic aortic valve With mild aortic stenosis Maximum pressure gradient of 31 mmHg With a mean pressure gradient of 16.5 mmHg Color-flow and Doppler revealed moderate aortic regurgitation Mild MR Trivial tricuspid regurgitation. Ordering Physician: Nahun Diaz Performed By: Alexis Carter RCS Physical Exam Narrative GENERAL: cooperative HEENT: Atraumatic; normocephalic EYES; Anicteric, Normal Conjunctiva NECK; supple, normal thyroid, RESPIRATORY: Diminished to auscultation CARDIOVASCULAR: Regular S1 S2, GI: soft, normoactive bowel sounds, : No Renal angle tenderness; EXTREMITIES: Bipedal edema MUSCULOSKELETAL: no muscle wasting NEURO: Awake; no lateralizing signs. SKIN: No Rash PSYCH; Flat affect Assessment & Plan Assessment/Plan (1) Shortness of breath: PLAN: Plan Patient is an 83-year-old lady admitted with progressive shortness of breath imaging studies demonstrated features consistent with congestive heart failure. Admitted to a monitored bed for further management 1. Acute congestive heart failure with suspected preserved ejection fraction ? Patient admitted to a monitored bed treatment initiated with strict input and output, daily weight, low-sodium diet, fluid restriction and diuretic therapy with furosemide. As part of evaluation ordered 2D echo for LVEF assessment ? 08/02/2024;Patient is an 83-year-old lady admitted with progressive shortness of breath and assessment of acute congestive heart failure made. Started on furosemide admitted to a monitored bed. Patient weight on admission was 95.4, currently down to 93.8. I's and O's and negative fluid balance of 400 mL 2. Acute hypoxia Secondary to above patient placed on supplemental oxygen titrated to keep saturation greater than 90 ? 08/02/2024; plan is to assess patient for possible home oxygen prior to discharge 3. Valvular heart disease ? With history of TAVR at [facility] in 2017 4. Class III obesity with BMI of 40.6 ? Complicating care, weight loss advised 5. Dyslipidemia ? Patient is on Zetia did continue 6. Allergic rhinitis ? Patient is on fluticasone discontinued home dose 7. Mild coronary artery disease ? Patient did not present with any anginal symptoms we will continue with monitoring 8. Diabetes mellitus type 2 ? Listed on patient history currently not on any therapeutics we will continue with monitoring 9. Obstructive sleep apnea ? Consistent use of PAP therapy encouraged 10. Hypokalemia ? Secondary to patient being on furosemide. Corrected low potassium per protocol repeat potassium levels ordered in a.m. for subsequent eval 11. Anemia ? Secondary to chronic disorder monitoring H&H and transfuse if patient becomes symptomatic or hemoglobin falls below 7 12. DVT prophylaxis ? Subcu heparin 13. Anemia ? Secondary to chronic disorder monitoring H&H and transfuse if patient becomes symptomatic or hemoglobin falls below 7 Time spent in the patient's overall evaluation,decision-making process, review of diagnostic data, adjustment of management, discussion with other providers, nursing nursing and ancillary staff involved in patient's care documentation, 52 Minutes Charges/Coding Visit Charges Inpatient E&M: 88370 Subs Hosp L3
[2024-08-02] MEDS: Cholecalciferol (VIT D3) 25 MCG TABLET (1,000 UNITS) PO (10:05)
[2024-08-02] MEDS: Carvedilol 25 MG Tablet PO ×2 (10:06→16:07)
[2024-08-02] MEDS: Ezetimibe 10 MG Tablet PO (10:06)
[2024-08-02] MEDS: Spironolactone 25 MG Tablet PO (10:06)
[2024-08-02] MEDS: Montelukast 10 MG Tablet PO (10:06)
[2024-08-02] MEDS: Heparin Injection (Vial) 5,000 UNIT/ML VIAL 5000 UNIT SC ×2 (10:06→21:28)
[2024-08-02] MEDS: amLODIPine 5 MG Tablet PO (10:06)
[2024-08-02] MEDS: Aspirin E.C. 81 MG Tablet PO (10:06)
[2024-08-02] MEDS: Lisinopril 40 MG Tablet PO (10:06)
--- NOTE | 2024-08-02 12:00 | CASEMGMT ---
RN CM Face to Face with patient for initial transition planning/care coordination assessment. RN CM introduced self and role at [facility]. Patient lying in bed, alert and oriented. Patient willing to participate in assessment and is able to answer all questions appropriately. Care providers, pharmacy, and demographics verified. Strata: 2 PCP: Sydnee Specialists: Clau, plant associate; Jason Norton embedded linux engineer Preferred Pharmacy: [facility] retail Insurance: O [facility] Prescription Benefit: yes Living Will/HPOA: yes, son Bob Fair LNOK: son, daughter Living Arrangements: Patient lives alone in a condo with 2 steps and railing to enter the home. Patient states she is independent at home. Transportation: self, son DME/HHC: Patient has tub bench, cane, grab bars, walker, rollator, cpap, and pulse ox. Will monitor for home oxygen, prefers [employer]. No previous HHC or SNF Patient wishes to discharge home, denies need for home health at this time. Patient states she has no further needs or concerns at this time. CM to follow for discharge planning needs that may arise. Disposition Plan: Patient to discharge home with family support and follow-up plans in place. Adriane NORWOOD, RN, CM
[2024-08-02] MEDS: Albuterol 2.5 MG/3 ML VIAL.NEB. INHALATION ×2 (12:22→19:30)
[2024-08-02] MEDS: Budesonide Respules 0.5 MG/2 ML AMPUL.NEB. INHALATION (19:30)
[2024-08-02] MEDS: Atorvastatin Calcium 10 MG Tablet PO (21:28)
[2024-08-03] VITALS (8 sets, daily range): BP systolic 143–161; BP diastolic 39–48; PULSE 63–82; RESP 16–20; TEMP 36.3–36.8; O2SAT 88–95; BMI 40.1
[2024-08-03 04:37] LABS: Absolute Lymphocyte Count 1.86 X10^3/uL (0.83-4.51); Absolute Neutrophil Count 4.9 X10^3/uL (2.0-7.7); Basophil# 0.04 X10^3/uL; Basophil% 0.5 % (0-1); Eosinophil# 0.19 X10^3/uL; Eosinophils% 2.4 % (0-5); Hematocrit 35.9 % (37-47); Hemoglobin 11.7 g/dL (12.0-15.0); Lymphocyte # 1.86 X10^3/ul (0.83-4.51); Lymphocyte % 23.8 % (19-41); Mean Corp Hgb Conc 32.6 g/dL (32-36); Mean Corpuscular Hgb 28.1 pg (27.0-32.0); Mean Corpuscular Volume 86.3 fL (81-99); Mean Platelet Vol. 11.3 fl (6.2-12.0); Monocyte# 0.82 X10^3/uL; Monocyte% 10.5 % (0-10); NRBC Flagged by Analyzer 0 % (0-5); Neutrophil # 4.88 X10^3/uL (2.7-7.7); Neutrophil % 62.5 % (47-70); Platelet Count 209 K/mm3 (150-450); RBC Distribution Width SD 47.7 fl (35.1-43.9); Red Blood Count 4.16 M/mm3 (4.2-5.4); White Blood Count 7.8 K/mm3 (4.4-11.0)
[2024-08-03 05:18] LABS: Anion Gap 14 (5-15); BUN 19 mg/dL (4-19); BUN/Creat Ratio 18.1 RATIO (10-20); Calcium,Total 9.4 mg/dL (7.6-11.0); Chloride 99 mmol/L (98-108); Creatinine, Serum 1.05 mg/dL (0.70-1.20); EST Glomerular Filtration Rate 53 (>60); Estimated Creatinine Clearance 42.87 ml/min (50-250); Glucose 111 mg/dL (70-99); Potassium 2.9 mmol/L (3.3-5.1); Sodium Level 141 mmol/L (133-145)
[2024-08-03] MEDS: 0.9% Saline Lock 10 ML Syringe IV (05:30)
[2024-08-03] MEDS: Furosemide 100 MG/10 ML Vial 60 MG IV (05:31)
[2024-08-03] MEDS: Levothyroxine 137 MCG Tablet PO (05:31)
[2024-08-03] MEDS: Albuterol 2.5 MG/3 ML VIAL.NEB. INHALATION ×2 (07:00→12:57)
[2024-08-03] MEDS: Budesonide Respules 0.5 MG/2 ML AMPUL.NEB. INHALATION (07:00)
--- NOTE | 2024-08-03 08:50 | PCM.PN.HOSP ---
Reason for Visit Reason for Visit: Diagnoses Shortness of breath (08/01/24) Subjective Subjective Patient seen has responded to diuretic therapy. Potassium this morning is down to 2.9 additional replacement given. Patient also remains on supplemental oxygen and will be assessed for home oxygen prior to discharge Objective Data Objective Data Vital Signs: Vital Signs Temp Pulse Resp BP Pulse Ox O2 Del Method O2 Flow Rate 97.9 F 78 20 H 157/43 H 93 Room Air 2 08/03/24 05:08/03/24 07:00 08/03/24 07:00 08/03/24 05:08/03/24 07:00 08/03/24 07:00 08/03/24 05: Oxygen Flow Rate (L/min) 2 Oxygen Delivery Method Room Air Weight: 93.3 kg Body Mass Index (BMI) 40.1 Intake & Output: Intake and Output for Last 24 Hours 08/01/24 08/02/24 08/03/24 23:59 23:59 23:59 Intake Total 1000 / 1000 240 / 240 Output Total 1200 / 1950 1650 / 1650 Balance -200 / -950 -1410 / -1410 Medical Nutrition Assessment Dietitian: Malnutrition Criteria Met Start: 08/02/24 11:19 Freq: Status: Active Protocol: Document 08/02/24 15:29 SB (Rec: 08/02/24 15:29 SB [id number]) Nutrition Malnutrition Evidence of Yes Malnutrition Exists Malnutrition (severe Acute Illness/Injury ): Evidenced By Suboptimal Energy Intake (Severe),Weight Loss (Severe) Clinical Problem Acute Disease or Injury Related Malnutrition Etiology severe related to inadequate oral intake Signs/Symptoms as evidenced by 6% unintentional weight loss x 3 weeks and PO meeting <50% of estimated nutrition needs x 1 month. Status Active Problem Recommendation Dietitian Adjust to cardiac diet. Recommendations/ Will monitor weigh trends. Changes Lab / Micro Data 08/03/24 04:10 08/03/24 04:10 Labs: Laboratory Results - last 24 hr 08/03/24 04:10: WBC 7.8, RBC 4.16 L, Hgb 11.7 L, Hct 35.9 L, MCV 86.3, MCH 28.1, MCHC 32.6, RDW Std Deviation 47.7 H, RDW Coeff of Judson 15.0 H, Plt Count 209, MPV 11.3, Immature Gran % (Auto) 0.300, Neut % (Auto) 62.5, Lymph % (Auto) 23.8, [place] % (Auto) 10.5 H, Eos % (Auto) 2.4, Baso % (Auto) 0.5, Absolute Neuts (auto) 4.9, Absolute Lymphs (auto) 1.86, Nucleated RBC % 0, Sodium 141, Potassium 2.9 L, Chloride 99, Carbon Dioxide 28.0, Anion Gap 14, BUN 19, Creatinine 1.05, Estim Creat Clear Calc 42.87 L, Est GFR (MDRD) Non-Af 53 L, BUN/Creatinine Ratio 18.1, Glucose 111 H, Calcium 9.4 Physical Exam Narrative GENERAL: cooperative HEENT: Atraumatic; normocephalic EYES; Anicteric, Normal Conjunctiva NECK; supple, normal thyroid, RESPIRATORY: Diminished to auscultation CARDIOVASCULAR: Regular S1 S2, GI: soft, normoactive bowel sounds, : No Renal angle tenderness; EXTREMITIES: Bipedal edema MUSCULOSKELETAL: no muscle wasting NEURO: Awake; no lateralizing signs. SKIN: No Rash PSYCH; Flat affect Assessment & Plan Assessment/Plan (1) Shortness of breath: PLAN: Plan Patient is an 83-year-old lady admitted with progressive shortness of breath imaging studies demonstrated features consistent with congestive heart failure. Admitted to a monitored bed for further management 1. Acute congestive heart failure with suspected preserved ejection fraction ? Patient admitted to a monitored bed treatment initiated with strict input and output, daily weight, low-sodium diet, fluid restriction and diuretic therapy with furosemide. As part of evaluation ordered 2D echo for LVEF assessment ? 08/02/2024;Patient is an 83-year-old lady admitted with progressive shortness of breath and assessment of acute congestive heart failure made. Started on furosemide admitted to a monitored bed. Patient weight on admission was 95.4, currently down to 93.8. I's and O's and negative fluid balance of 400 mL 2. Acute hypoxia Secondary to above patient placed on supplemental oxygen titrated to keep saturation greater than 90 ? 08/02/2024; plan is to assess patient for possible home oxygen prior to discharge ? 08/03/2024; I have reviewed the oxygen testing, and this patient qualifies for the home equipment and portability. The patient is mobile in the home and the community. 3. Valvular heart disease ? With history of TAVR at [facility] in 2017 4. Class III obesity with BMI of 40.6 ? Complicating care, weight loss advised 5. Dyslipidemia ? Patient is on Zetia did continue 6. Allergic rhinitis ? Patient is on fluticasone discontinued home dose 7. Mild coronary artery disease ? Patient did not present with any anginal symptoms we will continue with monitoring 8. Diabetes mellitus type 2 ? Listed on patient history currently not on any therapeutics we will continue with monitoring 9. Obstructive sleep apnea ? Consistent use of PAP therapy encouraged 10. Hypokalemia ? Secondary to patient being on furosemide. Corrected low potassium per protocol repeat potassium levels ordered in a.m. for subsequent eval 11. Anemia ? Secondary to chronic disorder monitoring H&H and transfuse if patient becomes symptomatic or hemoglobin falls below 7 12. DVT prophylaxis ? Subcu heparin 13. Anemia ? Secondary to chronic disorder monitoring H&H and transfuse if patient becomes symptomatic or hemoglobin falls below 7 Time spent in the patient's overall evaluation,decision-making process, review of diagnostic data, adjustment of management, discussion with other providers, nursing nursing and ancillary staff involved in patient's care documentation, 38 Minutes
[2024-08-03] MEDS: Ezetimibe 10 MG Tablet PO (09:06)
[2024-08-03] MEDS: Lisinopril 40 MG Tablet PO (09:06)
[2024-08-03] MEDS: Spironolactone 25 MG Tablet PO (09:06)
[2024-08-03] MEDS: Heparin Injection (Vial) 5,000 UNIT/ML VIAL 5000 UNIT SC (09:07)
[2024-08-03] MEDS: Cholecalciferol (VIT D3) 25 MCG TABLET (1,000 UNITS) PO (09:07)
[2024-08-03] MEDS: amLODIPine 5 MG Tablet PO (09:07)
[2024-08-03] MEDS: Aspirin E.C. 81 MG Tablet PO (09:07)
[2024-08-03] MEDS: Potassium Chloride Oral Tablet 20 MEQ PO (09:07)
[2024-08-03] MEDS: Potassium Chloride Oral Tablet 20 MEQ 40 MEQ PO (09:07)
[2024-08-03] MEDS: Carvedilol 25 MG Tablet PO (09:07)
[2024-08-03] MEDS: Montelukast 10 MG Tablet PO (09:07)
--- NOTE | 2024-08-03 11:35 | CASEMGMT ---
Dr. Diaz reports that the pt will DC today. Per the tar pot man, pt qualifies for 2L of oxygen with exertion. Rx signed by Dr Diaz. Rx and testing sent to [facility] via POS on CLOUD at this time. RN CM to pt room now. Pt educated that [facility] will deliver a portable tank to the room and that the pt is to call [facility] once she gets home for the remaining oxygen equipment to be delivered. Pt states understanding. Pt states that she has a ride home today through her friend. Pt states that she is independent and denies further therapy needs. Pt states that she feels safe returning home alone and denies further DC needs.
--- NOTE | 2024-08-03 11:57 | DS.PCM_ITS ---
Providers Date of Admission: 08/01/24 Primary Care Physician: Dr. Alejandra Randhawa MD Reason For Visit: CHF Diagnosis Discharge Diagnosis (1) Shortness of breath: Status: Acute Code(s): R06.02 - Shortness of breath Plan Patient is an 83-year-old lady admitted with progressive shortness of breath imaging studies demonstrated features consistent with congestive heart failure. Admitted to a monitored bed for further management 1. Acute congestive heart failure with suspected preserved ejection fraction ? Patient admitted to a monitored bed treatment initiated with strict input and output, daily weight, low-sodium diet, fluid restriction and diuretic therapy with furosemide. As part of evaluation ordered 2D echo for LVEF assessment ? 08/02/2024;Patient is an 83-year-old lady admitted with progressive shortness of breath and assessment of acute congestive heart failure made. Started on furosemide admitted to a monitored bed. Patient weight on admission was 95.4, currently down to 93.8. I's and O's and negative fluid balance of 400 mL ? 08/03/2024; 2D echo result as below The estimated ejection fraction is 55-60 %. Bioprosthetic aortic valve With mild aortic stenosis Maximum pressure gradient of 31 mmHg With a mean pressure gradient of 16.5 mmHg Color-flow and Doppler revealed moderate aortic regurgitation Mild MR Trivial tricuspid regurgitation. 2. Acute hypoxia Secondary to above patient placed on supplemental oxygen titrated to keep saturation greater than 90 ? 08/02/2024; plan is to assess patient for possible home oxygen prior to discharge ? 08/03/2024; I have reviewed the oxygen testing, and this patient qualifies for the home equipment and portability. The patient is mobile in the home and the community. 3. Valvular heart disease ? With history of TAVR at [facility] in 2017 4. Class III obesity with BMI of 40.6 ? Complicating care, weight loss advised 5. Dyslipidemia ? Patient is on Zetia did continue 6. Allergic rhinitis ? Patient is on fluticasone discontinued home dose 7. Mild coronary artery disease ? Patient did not present with any anginal symptoms we will continue with monitoring 8. Diabetes mellitus type 2 ? Listed on patient history currently not on any therapeutics we will continue with monitoring 9. Obstructive sleep apnea ? Consistent use of PAP therapy encouraged 10. Hypokalemia ? Secondary to patient being on furosemide. Corrected low potassium per protocol repeat potassium levels ordered in a.m. for subsequent eval 11. Anemia ? Secondary to chronic disorder monitoring H&H and transfuse if patient becomes symptomatic or hemoglobin falls below 7 12. DVT prophylaxis ? Subcu heparin 13. Anemia ? Secondary to chronic disorder monitoring H&H and transfuse if patient becomes symptomatic or hemoglobin falls below 7 Time spent in the patient's overall evaluation,decision-making process, review of diagnostic data, adjustment of management, discussion with other providers, nursing nursing and ancillary staff involved in patient's care documentation, 38 Minutes Medications at Discharge Home Medications albuterol sulfate 90 mcg/actuation aerosol inhaler 1 puff inhalation Q4H PRN PRN Asthma 08/06/16 cholecalciferol (vitamin D3) 25 mcg (1,000 unit) tablet 1,000 unit PO DAILY 08/06/16 montelukast 10 mg tablet 10 mg PO DAILY 08/06/16 omega-3 fatty acids-fish oil 300 mg-1,000 mg capsule 1 ea PO DAILY 08/06/16 vitamin A 2,400 mcg capsule 8,000 unit PO DAILY 08/06/16 vitamin E mixed 1,000 unit capsule 1,000 unit PO DAILY 08/06/16 multivitamin 1 tab PO DAILY 02/16/17 aspirin 81 mg tablet,delayed release 81 mg PO DAILY@0800 #90 tabs 02/11/22 zinc gluconate 50 mg tablet 50 mg PO DAILY 02/11/22 lisinopril 40 mg tablet 40 mg PO DAILY #90 tabs 01/26/24 ezetimibe 10 mg tablet (Zetia) 10 mg PO DAILY #90 tabs 04/12/24 cetirizine 10 mg tablet 10 mg PO QDAY PRN allergy symptoms 04/17/24 magnesium 250 mg tablet 250 mg PO DAILY 04/17/24 rosuvastatin 5 mg tablet 5 mg PO DAILY 04/17/24 diphenhydramine HCl 25 mg capsule (Benadryl) 25 mg PO QHS PRN allergic reaction 07/05/24 fluticasone propionate 50 mcg/actuation nasal spray,suspension (Flonase Allergy Relief) 2 spray intranasal DAILY PRN allergy symptoms 07/05/24 levothyroxine 137 mcg tablet (Synthroid) 137 mcg PO QDAY 07/05/24 turmeric root extract 500 mg capsule 500 mg PO QDAY 07/05/24 amlodipine 5 mg tablet 5 mg PO DAILY #90 tabs 07/13/24 carvedilol 25 mg tablet 25 mg PO BID #180 tabs 07/31/24 spironolactone 25 mg tablet 25 mg PO DAILY #90 tabs 07/31/24 fluticasone propionate 115 mcg-salmeterol 21 mcg/actuation HFA inhaler (Advair HFA) 2 puff inhalation BID 08/01/24 furosemide 40 mg tablet 40 mg PO BID #120 tabs 08/03/24 potassium chloride 20 mEq tablet,extended release(part/cryst) 20 meq PO BIDCM #60 tabs 08/03/24 Physical Exam Narrative GENERAL: cooperative HEENT: Atraumatic; normocephalic EYES; Anicteric, Normal Conjunctiva NECK; supple, normal thyroid, RESPIRATORY: Diminished to auscultation CARDIOVASCULAR: Regular S1 S2, GI: soft, normoactive bowel sounds, : No Renal angle tenderness; EXTREMITIES: Bipedal edema MUSCULOSKELETAL: no muscle wasting NEURO: Awake; no lateralizing signs. SKIN: No Rash PSYCH; Flat affect Medical Records Data Medical Nutrition Assessment Dietitian: Malnutrition Criteria Met Start: 08/02/24 11:19 Freq: Status: Active Protocol: Document 08/02/24 15:29 SB (Rec: 08/02/24 15:29 SB [id number]) Nutrition Malnutrition Evidence of Yes Malnutrition Exists Malnutrition (severe Acute Illness/Injury ): Evidenced By Suboptimal Energy Intake (Severe),Weight Loss (Severe) Clinical Problem Acute Disease or Injury Related Malnutrition Etiology severe related to inadequate oral intake Signs/Symptoms as evidenced by 6% unintentional weight loss x 3 weeks and PO meeting <50% of estimated nutrition needs x 1 month. Status Active Problem Recommendation Dietitian Adjust to cardiac diet. Recommendations/ Will monitor weigh trends. Changes Weight / BMI Weight Weight: 93.3 kg Body Mass Index (BMI) 40.1 ABG / Lab / Microbiology Data 08/03/24 04:10 08/03/24 04:10 Laboratory: Laboratory Results - last 24 hr 08/03/24 04:10: WBC 7.8, RBC 4.16 L, Hgb 11.7 L, Hct 35.9 L, MCV 86.3, MCH 28.1, MCHC 32.6, RDW Std Deviation 47.7 H, RDW Coeff of [place]son 15.0 H, Plt Count 209, MPV 11.3, Immature Gran % (Auto) 0.300, Neut % (Auto) 62.5, Lymph % (Auto) 23.8, M shira % (Auto) 10.5 H, Eos % (Auto) 2.4, Baso % (Auto) 0.5, Absolute Neuts (auto) 4.9, Absolute Lymphs (auto) 1.86, Nucleated RBC % 0, Sodium 141, Potassium 2.9 L , Chloride 99, Carbon Dioxide 28.0, Anion Gap 14, BUN 19, Creatinine 1.05, Estim Creat Clear Calc 42.87 L, Est GFR (MDRD) Non-Af 53 L, BUN/Creatinine Ratio 18.1, Glucose 111 H, Calcium 9.4 D/C Instructions Discharge Diet: 8 Cup Fluid Restriction and 2000 mg Sodium Diet Discharge Activity: Return to Normal Activity Call your doctor if you observe: Fever of 101 or Higher, Shortness of breath, Fainting spells and Chest pain DC O2, CPAP, BIPAP Needs Home O2 Discharge instructions: Yes Type of respiratory needs?: Oxygen Oxygen frequency: With Ambulation Oxygen liters per minute during Ambulation: 2 DC home with Oxygen: Yes Home O2 MD Review: I have reviewed the oxygen testing, and the patient qualifies for home oxygen equipment and portability. The patient is mobile in the home and the community. Meaningful Use Info Meaningful Use Meaningful Use Diagnoses (Choose all that apply): CHF CHF ZAHRAA/ARB ordered at discharge?: Yes Documented LVEF (%): 55 Ischemic Stroke Statin Dosing Therapy Reference: STATIN DOSE THERAPY REFERENCE: * Patients > 75 years receive moderate or high dose statin therapy. * Patients 75 years or YOUNGER should receive HIGH intensity statin dose unless contraindicated. You will be required to document reason for non-treatment if statin daily dose does not meet guidelines. HIGH DOSE STATIN THERAPY DAILY Atorvastatin > than or = to 40 mg Rosuvastatin > than or = to 20 mg Amlodipine + Atorvastatin > than or = to 2.5/40 mg Ezetimibe + Simvastatin 10/80 mg Simvastatin 80mg Discharge Plan Admission Admit Date/Time: 08/01/24 11:59 Attending Provider: Nahun Diaz Primary Care Provider: Alejandra Randhawa Discharge Orders/Prescriptions Prescriptions: New potassium chloride 20 mEq Tablet,Er Particles/Crystals 20 meq PO BIDCM Qty: 60 0RF Continued multivitamin tablet 1 tab PO DAILY zinc gluconate 50 mg tablet 50 mg PO DAILY aspirin 81 mg tablet,delayed release (DR/EC) 81 mg PO DAILY@0800 Qty: 90 3RF rosuvastatin 5 mg tablet 5 mg PO DAILY Rx Instructions: ONLY TAKE OIN TUESDAY AND TUESDAY magnesium 250 mg tablet 250 mg PO DAILY cetirizine 10 mg tablet 10 mg PO QDAY PRN (Reason: allergy symptoms) fluticasone propionate [Flonase Allergy Relief] 50 mcg/actuation spray,suspension 2 spray intranasal DAILY PRN (Reason: allergy symptoms) Rx Instructions: administer into each nostril levothyroxine [Synthroid] 137 mcg tablet 137 mcg PO QDAY Rx Instructions: Take 1 tab daily, add 1/2 tab on Sundays turmeric root extract 500 mg capsule 500 mg PO QDAY diphenhydramine HCl [Benadryl] 25 mg capsule 25 mg PO QHS PRN (Reason: allergic reaction) amlodipine 5 mg tablet 5 mg PO DAILY Qty: 90 4RF vitamin A 8,000 UNIT capsule 8,000 unit PO DAILY montelukast 10 MG tablet 10 mg PO DAILY Patient Comments: PT TAKES AT BEDTIME albuterol sulfate 1 PUFF inhaler 1 puff INHALATION Q4H PRN PRN (Reason: Asthma) cholecalciferol (vitamin D3) 1,000 UNIT tablet 1,000 unit PO DAILY omega-3 fatty acids-fish oil 1 EACH capsule 1 ea PO DAILY vitamin E mixed 1,000 UNIT capsule 1,000 unit PO DAILY fluticasone propion-salmeterol [Advair HFA] 115-21 mcg/actuation HFA aerosol inhaler 2 puff INHALATION BID lisinopril 40 mg tablet 40 mg PO DAILY Qty: 90 3RF ezetimibe [Zetia] 10 mg tablet 10 mg PO DAILY Qty: 90 3RF carvedilol 25 mg tablet 25 mg PO BID Qty: 180 3RF Rx Instructions: must administer with a meal/food spironolactone 25 mg tablet 25 mg PO DAILY Qty: 90 3RF Changed furosemide 40 mg tablet 40 mg PO BID Qty: 120 3RF Other Ambulatory Orders: Basic Metabolic Profile (BMP) (Routine) Timeframe: [id number] Facility: [facility] - Location: Laboratory Ordered By: Dr. Nahun Diaz Referrals / Follow Up: Alejandra Randhawa MD [Primary Care Provider] - Within 2 Weeks Disposition Disposition (needs filled in before D/C Order can be placed): Home, Self Care Charges/Coding Visit Charges Inpatient E&M: 24918 Disch Hosp >30min
== END 2024-08-03 13:43 | disposition home or self-care (01) | DRG 291 ==
LOC: ED 09:45 → PCU 12:49
PROVIDERS: Admitting Provider Internal Medicine; Emergency Provider Surgery; PCP Internal Medicine; Visit Provider Internal Medicine
DX: I11.0 Hypertensive heart disease with heart failure (principal); I50.31 Acute diastolic (congestive) heart failure; E43 Unspecified severe protein-calorie malnutrition; Z68.41 Body mass index [BMI] 40.0-44.9, adult; E11.9 Type 2 diabetes mellitus without complications; D64.9 Anemia, unspecified; E78.5 Hyperlipidemia, unspecified; E66.813 Obesity, class 3; Z95.2 Presence of prosthetic heart valve; E87.6 Hypokalemia; I25.10 Atherosclerotic heart disease of native coronary artery without angina pectoris; J30.9 Allergic rhinitis, unspecified; G47.33 Obstructive sleep apnea (adult) (pediatric); I35.0 Nonrheumatic aortic (valve) stenosis; Z95.3 Presence of xenogenic heart valve; R09.02 Hypoxemia; Z79.82 Long term (current) use of aspirin; Z79.899 Other long term (current) drug therapy; Z79.51 Long term (current) use of inhaled steroids; Z79.02 Long term (current) use of antithrombotics/antiplatelets; Z79.890 Hormone replacement therapy
CPT/HCPCS: 36415; 71046; 80048; 83735; 83880; 84100; 84484; 85025; 85379; 93005; 93306; 94640; 94668; 99252; 99285; Q9957; A4216; C8929; G0463; J1938

== ENCOUNTER → 2024-08-10 | Outpatient (CLI) | payer MEDICARE, SELFPAY ==
[2024-08-10 11:54] LABS: Anion Gap 13 (5-15); BUN 35 mg/dL (4-19); BUN/Creat Ratio 22.7 RATIO (10-20); Carbon Dioxide 26.9 mmol/L (21.0-32.0); Chloride 99 mmol/L (98-108); Creatinine, Serum 1.54 mg/dL (0.70-1.20); EST Glomerular Filtration Rate 34 (>60); Glucose 116 mg/dL (70-99); Sodium Level 138 mmol/L (133-145)
== END | disposition home or self-care (01) ==
LOC: LAB 10:32
PROVIDERS: PCP Internal Medicine; Referring Provider Internal Medicine; Visit Provider Internal Medicine
DX: E87.6 Hypokalemia (principal)
CPT/HCPCS: 36415; 80048

== ENCOUNTER 2024-09-05 15:51 | Inpatient (IN) | payer MEDICARE, SELFPAY ==
[2024-09-05] VITALS (9 sets, daily range): BP systolic 108–133; BP diastolic 28–53; PULSE 54–69; RESP 16–26; TEMP 36–36.6; O2SAT 95–99; BMI 37.2
--- NOTE | 2024-09-05 16:15 | EKG12_ITS ---
Test Reason : LOW BP Blood Pressure : */* mmHG Vent. Rate : 58 BPM Atrial Rate : 58 BPM P-R Int : 232 ms QRS Dur : 184 ms QT Int : 434 ms P-R-T Axes : 30 37 10 degrees QTcB Int : 426 ms Sinus bradycardia with sinus arrhythmia with 1st degree A-V block Right bundle branch block Abnormal ECG Confirmed by GAGE RAIN, LEONEL ([id number]), newspaper or periodical editor NIHARIKA LOUIE ([id number]) on 09/06/2024 10:06:36 AM Referred By: Ramin Berman Confirmed By: LEONEL ALMONTE MD
--- NOTE | 2024-09-05 16:53 | EDS_ITS ---
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 She has history of atherosclerotic heart disease, nonrheumatic aortic valve stenosis, status post aortic valve replacement December 2016, essential hypertension and hyperlipidemia who presents from the pulmonary office because of a low blood pressure reading of 105. Based on most recent ER visit August 01 patient had elevated blood pressure readings with systolics greater than 160. Patient complains of lightheaded with standing. She denies headache, visual, ocular auditory symptoms. She denies shortness of breath, chest pain or difficulty breathing. She denies black or maroon-colored stool. She denies bruising easily. She has on an aspirin a day, baby. The office note from pulmonary has not been entered into the computer yet. Patient was admitted in July. Admitting diagnosis was shortness of breath due to acute congestive heart failure with suspected preserved ejection fraction, hypoxia due to congestive heart failure, valvular heart disease, class III obesity with a BMI of 40.6, dyslipidemia, mild coronary artery disease, type 2 diabetes, obstructive sleep apnea and anemia. Patient states she was at home using the restroom around noon. When she stood up she became lightheaded and passed out. This was after she use the restroom. She had no chest pressure tightness heaviness. She denies shortness of breath. She denied black or maroon-colored stool. She did not note any blood in her stool either. She denied hematuria. She denies dyspnea with activity compared to baseline. Prior similar symptoms: Yes (Remote) Recent Illness/Hospitalization: Yes (Admitted for CHF end of July.) [facility] Medical History Hypokalemia Nonrheumatic aortic (valve) stenosis Atherosclerosis of coronary artery of [place] heart without angina pectoris Obesity Atherosclerotic heart disease of [place] coronary artery with unstable angina pectoris OPHELIA (obstructive sleep apnea) Essential hypertension Fatigue Family history of hypertension Exertional shortness of breath Exertional chest pain Dyspnea on exertion Dizziness and giddiness Hyperlipidemia Carotid bruit Diabetes mellitus Home Medications ?Medication ?Instructions ?Recorded ?Last Taken ?Type albuterol sulfate 90 mcg/actuation 1 puff inhalation Q 4H PRN PRN 08/06/16 Unknown History aerosol inhaler Asthma cholecalciferol (vitamin D3) 25 1,000 unit PO DAILY vi tamin 08/06/16 07/31/24 History mcg (1,000 unit) tablet montelukast 10 mg tablet 10 mg PO DAILY allergies 04/2307/31/24 History omega-3 fatty acids-fish oil 300 1 ea PO DAILY supplem ent 08/06/16 07/31/24 History mg-1,000 mg capsule vitamin A 2,400 mcg capsule 8,000 unit PO DAILY vitami n 08/06/16 Unknown History vitamin E mixed 1,000 unit capsule 1,000 unit PO DAILY vitamin 08/06/16 Unknown History aspirin 81 mg tablet,delayed 81 mg PO DAILY@0800 heart health 02/11/22 08/01/24 Rx release #90 tabs zinc gluconate 50 mg tablet 50 mg PO DAILY supplement 02/11/22 Unknown History lisinopril 40 mg tablet 40 mg PO DAILY blood pressur e #90 01/26/24 08/01/24 Rx tabs ezetimibe 10 mg tablet (Zetia) 10 mg PO DAILY choleste rol #90 tabs 04/12/24 08/01/24 Rx cetirizine 10 mg tablet 10 mg PO QDAY PRN allergy sy mptoms 04/17/24 07/31/24 History magnesium 250 mg tablet 250 mg PO DAILY supplement 0 04/17/24 07/31/24 History rosuvastatin 5 mg tablet 5 mg PO DAILY cholesterol 07/30/24 History diphenhydramine HCl 25 mg capsule 25 mg PO QHS PRN all ergic reaction 07/05/24 07/31/24 History (Benadryl) fluticasone propionate 50 2 spray intranasal DAILY PRN 07/05/24 08/01/24 History mcg/actuation nasal allergy symptoms spray,suspension (Flonase Allergy Relief) levothyroxine 137 mcg tablet 137 mcg PO QDAY thyroid 0 07/05/24 08/01/24 History (Synthroid) turmeric root extract 500 mg 500 mg PO QDAY supplement 07/05/24 Unknown History capsule amlodipine 5 mg tablet 5 mg PO DAILY blood pressure #90 07/13/24 08/01/24 Rx tabs carvedilol 25 mg tablet 25 mg PO BID blood pressure #180 07/31/24 08/01/24 Rx tabs spironolactone 25 mg tablet 25 mg PO DAILY diuretic #9 0 tabs 07/31/24 08/01/24 Rx fluticasone propionate 115 2 puff inhalation BID breat yovani 08/01/24 08/01/24 History mcg-salmeterol 21 mcg/actuation HFA inhaler (Advair HFA) furosemide 40 mg tablet 40 mg PO BID #120 tabs 08/03 Unknown Rx potassium chloride 20 mEq 20 meq PO BIDCM #60 tabs Unknown Rx tablet,extended release(part/cryst) Allergy/AdvReac Type Severity Reaction Status Date / Time Environmental Allergies: Allergy Anaphylaxis Verified 09/05/24 15:54 Uncoded rosuvastatin (From Crestor) AdvReac Intermediate Myalgias Verified 09/05/24 15:54 nifedipine AdvReac Unknown Verified 09/05/24 15:54 simvastatin (From Zocor) AdvReac Myalgias Verified 09/05/24 15:54 Family History Father , age 70 Colon cancer Mother , age 67 CAD (coronary artery disease) Hypertension Brother , age 59 CAD (coronary artery disease) Hypertension Brother Hypertension Diabetes Other Family history of hypertension Surgical History History of left heart catheterization (08/09/16) History of parathyroid surgery (02/2002) History of tubal ligation History of cholecystectomy H/O aortic valve replacement (12/22/16) Social History Smoking Status: Never smoker alcohol intake: never substance use type: does not use caffeine: Yes Type: tea Number of servings: 2 what type of physical activity do you participate in: walking frequency: 3-4 times per week duration: 15-30 minutes/day seatbelt use: always do you feel safe at home: Yes ROS ROS ED Constitutional Constitutional ED: Denies chills, fever(s), subjective, sweats or weight loss Eyes Eyes: Reports change in vision bilateral (When patient passed out); Denies blurry vision ENT ENT ED: Denies ear pain, rhinorrhea or sore throat Cardiovascular Cardiovascular: Denies chest pain, orthopnea, palpitations or paroxysmal nocturnal dyspnea Respiratory/Chest Respiratory/Chest: Denies cough, dyspnea, dyspnea on exertion, orthopnea or paroxysmal nocturnal dyspnea Gastrointestinal Gastrointestinal: Denies abdominal pain, diarrhea, melena, nausea or vomiting Genitourinary Genitourinary ED: Denies hematuria Musculoskeletal Musculoskeletal: Denies back pain Integumentary Denies rash Neurologic Neurologic: Reports weakness; Denies headache(s) or paresthesias Psychiatric Psychiatric: Denies anxiety or depression Hematologic/Lymphatic Hematologic/Lymphatic: Reports systems reviewed and no addt'l complaints, except as documented EXAM Physical Exam Const Vital Signs: 09/05/24 15:52 09/05/24 16:11 09/05/24
--- NOTE | 2024-09-05 16:53 | EX.ED.DYSGE1 ---
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 She has history of atherosclerotic heart disease, nonrheumatic aortic valve stenosis, status post aortic valve replacement December 2016, essential hypertension and hyperlipidemia who presents from the pulmonary office because of a low blood pressure reading of 105. Based on most recent ER visit August 01 patient had elevated blood pressure readings with systolics greater than 160. Patient complains of lightheaded with standing. She denies headache, visual, ocular auditory symptoms. She denies shortness of breath, chest pain or difficulty breathing. She denies black or maroon-colored stool. She denies bruising easily. She has on an aspirin a day, baby. The office note from pulmonary has not been entered into the computer yet. Patient was admitted in July. Admitting diagnosis was shortness of breath due to acute congestive heart failure with suspected preserved ejection fraction, hypoxia due to congestive heart failure, valvular heart disease, class III obesity with a BMI of 40.6, dyslipidemia, mild coronary artery disease, type 2 diabetes, obstructive sleep apnea and anemia. Patient states she was at home using the restroom around noon. When she stood up she became lightheaded and passed out. This was after she use the restroom. She had no chest pressure tightness heaviness. She denies shortness of breath. She denied black or maroon-colored stool. She did not note any blood in her stool either. She denied hematuria. She denies dyspnea with activity compared to baseline. Prior similar symptoms: Yes (Remote) Recent Illness/Hospitalization: Yes (Admitted for CHF end of July.) [facility] Medical History Hypokalemia Nonrheumatic aortic (valve) stenosis Atherosclerosis of coronary artery of [place] heart without angina pectoris Obesity Atherosclerotic heart disease of [place] coronary artery with unstable angina pectoris OPHELIA (obstructive sleep apnea) Essential hypertension Fatigue Family history of hypertension Exertional shortness of breath Exertional chest pain Dyspnea on exertion Dizziness and giddiness Hyperlipidemia Carotid bruit Diabetes mellitus Home Medications ?Medication ?Instructions ?Recorded ?Last Taken ?Type albuterol sulfate 90 mcg/actuation 1 puff inhalation Q4H PRN PRN 08/06/16 Unknown History aerosol inhaler Asthma cholecalciferol (vitamin D3) 25 1,000 unit PO DAILY vitamin 08/06/16 09/04/24 History mcg (1,000 unit) tablet montelukast 10 mg tablet 10 mg PO DAILY allergies 08/06/16 09/04/24 History omega-3 fatty acids-fish oil 300 1 ea PO DAILY supplement 08/06/16 09/04/24 History mg-1,000 mg capsule vitamin A 2,400 mcg capsule 8,000 unit PO DAILY vitamin 08/06/16 09/04/24 History vitamin E mixed 1,000 unit capsule 1,000 unit PO DAILY vitamin 08/06/16 09/04/24 History aspirin 81 mg tablet,delayed 81 mg PO DAILY@0800 heart health 02/11/22 09/05/24 Rx release #90 tabs zinc gluconate 50 mg tablet 50 mg PO DAILY supplement 02/11/22 09/04/24 History lisinopril 40 mg tablet 40 mg PO DAILY blood pressure #90 01/26/24 09/05/24 Rx tabs ezetimibe 10 mg tablet (Zetia) 10 mg PO DAILY cholesterol #90 tabs 04/12/24 09/04/24 Rx cetirizine 10 mg tablet 10 mg PO QDAY PRN allergy symptoms 04/17/24 07/31/24 History magnesium 250 mg tablet 250 mg PO DAILY supplement 04/17/24 09/04/24 History rosuvastatin 5 mg tablet 5 mg PO DAILY cholesterol 04/17/24 07/30/24 History diphenhydramine HCl 25 mg capsule 25 mg PO QHS PRN allergic reaction 07/05/24 07/31/24 History (Benadryl) fluticasone propionate 50 2 spray intranasal DAILY PRN 07/05/24 08/01/24 History mcg/actuation nasal allergy symptoms spray,suspension (Flonase Allergy Relief) levothyroxine 137 mcg tablet 137 mcg PO QDAY thyroid 07/05/24 09/05/24 History (Synthroid) turmeric root extract 500 mg 500 mg PO QDAY supplement 07/05/24 09/04/24 History capsule amlodipine 5 mg tablet 5 mg PO DAILY blood pressure #90 07/13/24 09/05/24 Rx tabs carvedilol 25 mg tablet 25 mg PO BID blood pressure #180 07/31/24 09/05/24 Rx tabs spironolactone 25 mg tablet 25 mg PO DAILY diuretic #90 tabs 07/31/24 09/05/24 Rx fluticasone propionate 115 2 puff inhalation BID breathing 08/01/24 09/04/24 History mcg-salmeterol 21 mcg/actuation HFA inhaler (Advair HFA) furosemide 40 mg tablet 40 mg PO BID #120 tabs 08/03/24 09/05/24 Rx potassium chloride 20 mEq 20 meq PO BIDCM #60 tabs 08/03/24 09/04/24 Rx tablet,extended release(part/cryst) Allergy/AdvReac Type Severity Reaction Status Date / Time Environmental Allergies: Allergy Anaphylaxis Verified 09/05/24 15:54 Uncoded rosuvastatin (From Crestor) AdvReac Intermediate Myalgias Verified 09/05/24 15:54 nifedipine AdvReac Unknown Verified 09/05/24 15:54 simvastatin (From Zocor) AdvReac Myalgias Verified 09/05/24 15:54 Family History Father , age 70 Colon cancer Mother , age 67 CAD (coronary artery disease) Hypertension Brother , age 59 CAD (coronary artery disease) Hypertension Brother Hypertension Diabetes Other Family history of hypertension Surgical History History of left heart catheterization (08/09/16) History of parathyroid surgery (02/2002) History of tubal ligation History of cholecystectomy H/O aortic valve replacement (12/22/16) Social History Smoking Status: Never smoker alcohol intake: never substance use type: does not use caffeine: Yes Type: tea Number of servings: 2 what type of physical activity do you participate in: walking frequency: 3-4 times per week duration: 15-30 minutes/day seatbelt use: always do you feel safe at home: Yes ROS ROS ED Constitutional Constitutional ED: Denies chills, fever(s), subjective, sweats or weight loss Eyes Eyes: Reports change in vision bilateral (When patient passed out); Denies blurry vision ENT ENT ED: Denies ear pain, rhinorrhea or sore throat Cardiovascular Cardiovascular: Denies chest pain, orthopnea, palpitations or paroxysmal nocturnal dyspnea Respiratory/Chest Respiratory/Chest: Denies cough, dyspnea, dyspnea on exertion, orthopnea or paroxysmal nocturnal dyspnea Gastrointestinal Gastrointestinal: Denies abdominal pain, diarrhea, melena, nausea or vomiting Genitourinary Genitourinary ED: Denies hematuria Musculoskeletal Musculoskeletal: Denies back pain Integumentary Denies rash Neurologic Neurologic: Reports weakness; Denies headache(s) or paresthesias Psychiatric Psychiatric: Denies anxiety or depression Hematologic/Lymphatic Hematologic/Lymphatic: Reports systems reviewed and no addt'l complaints, except as documented EXAM Physical Exam Const Vital Signs: 09/05/24 15:52 09/05/24 16:11 09/05/24 16:27 Temperature 97.8 F Temperature Source Oral Pulse Rate 58 L Pulse Rate [Lying] 62 Pulse Rate [Sitting (for 1 minute prior to obtaining)] 57 L Pulse Rate [Standing (for 1 minute prior to obtaining)] 54 L Respiratory Rate 20 H Respiratory Effort Normal Respiratory Pattern Normal Blood Pressure 115/28 L Blood Pressure [Lying] 122/41 H Blood Pressure [Sitting (for 1 minute prior to obtaining)] 128/39 H Blood Pressure [Standing (for 1 minute prior to obtaining)] 108/34 L Blood Pressure Mean 57 Blood Pressure Mean [Lying] 68 Blood Pressure Mean [Sitting (for 1 minute prior to obtaining)] 68 Blood Pressure Mean [Standing (for 1 minute prior to obtaining)] 58 Pulse Ox 99 Oxygen Delivery Method Room Air 09/05/24 16:52 09/05/24 17:00 Temperature Temperature Source Pulse Rate 54 L 59 L Pulse Rate [Lying] Pulse Rate [Sitting (for 1 minute prior to obtaining)] Pulse Rate [Standing (for 1 minute prior to obtaining)] Respiratory Rate 20 H 26 H Respiratory Effort Respiratory Pattern Blood Pressure 124/53 H 124/53 H Blood Pressure [Lying] Blood Pressure [Sitting (for 1 minute prior to obtaining)] Blood Pressure [Standing (for 1 minute prior to obtaining)] Blood Pressure Mean 76 76 Blood Pressure Mean [Lying] Blood Pressure Mean [Sitting (for 1 minute prior to obtaining)] Blood Pressure Mean [Standing (for 1 minute prior to obtaining)] Pulse Ox 97 97 Oxygen Delivery Method Room Air Room Air Positive well nourished and well developed Constitutional Narrative: BMI is 40.6. Patient's blood pressure is low for her. She is not tachycardic. She is bradycardic. Based on med list she is not on a blood thinner. She is on a baby aspirin. She is on a beta-lisa. This would probably explain her bradycardia. Orthostatic vital signs were negative. General Appearance ED: well developed and NAD; Negative for cyanotic, diaphoretic or pallor HEENT Reports moist mucous membranes HEENT Narrative: Head is atraumatic and normocephalic. Ears normal. No septal deviation hematoma. No dental trauma. Eyes EOMs intact bilaterally General Eye ED: Negative for pale conjunctiva or scleral icterus Neck no lymphadenopathy, supple and no JVD Chest Wall inspection of chest normal and palpation of chest normal Resp normal respiratory effort and clear to auscultation bilaterally Cardio regular rhythm, S1 normal heart sound, S2 normal heart sound and no murmurs Rate: bradycardia GI normal to inspection, nondistended, normoactive bowel sounds, non-tender, non-distended and no masses; Negative for hepatosplenomegaly Back/Spine no CVA tenderness Extremity normal to inspection General Extremety ED: Negative for edema or tenderness General Extremity: Negative for edema Neuro oriented x3 and CN's II-XII intact bilaterally Sensorium / Orientation: alert Psych mental status grossly normal Skin no rashes or lesions noted, no wounds and skin turgor normal General Skin Exam: Negative for jaundice or pallor MDM MDM MDM Narrative Medical decision making narrative: Will have nurse perform orthostatic vital signs to determine if she is hypovolemic or has autonomic dysfunction etc. She states in July she had her Lasix dose doubled and was placed on spironolactone. In light of this need to assess electrolytes and specifically sodium, potassium and chloride. Also to assess renal function. If BUN/creatinine is elevated compared to baseline she may have mild prerenal azotemia. EKG was obtained to assess for any dysrhythmia. History & Record Review Additional record(s) reviewed:: Prior inpatient record (Documented HPI narrative), Prior ED visit (Documented HPI narrative) and Prior labs Lab Data Attestation: I reviewed the patient's lab results. Lab results narrative: Basic metabolic panel is remarkable for a BUN of 108 and creatinine of 3.52 and potassium of 8.5. Last electrolyte panel was August 10 and her BUN was 3085 with a creatinine of 1.54 and potassium was normal. At the end of July she had a low potassium of 2.9. Her BUN and creatinine at that time was 19 and 1.05. Calcium is elevated 11.5. Will obtain an albumin Labs: Laboratory Results - last 24 hr 09/05/24 16:06 Sodium 130 L Potassium 8.5 H* Chloride 103 Carbon Dioxide 17.0 L Anion Gap 10 BUN 108 H* Creatinine 3.52 H Est GFR (MDRD) Non-Af 13 L BUN/Creatinine Ratio 30.7 H Glucose 121 H Calcium 11.5 H EKG Initial EKG: Attestation: I personally reviewed and interpreted this EKG as follows: Interpretation: Sinus Bradycardia (Rate is 58. There is evidence of a first-degree AV block. CT interval is 232 ms. QRS duration is prolonged at 184 ms and patient has a configuration consistent with right bundle branch block. QT duration is 434 ms. There is no acute ischemic changes noted.) Treatment and Re-Evaluation :: Patient was treated with IV gluconate, glucose, insulin and bicarb since her CO2 is low. She has a new first-degree heart block compared to EKG performed on August 01, 2024. The right bundle branch block was present at that time. Patient is noted to have some irregular on the monitor. She is bradycardic. 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 Velázquez the hospitalist was paged for admission) and Arranging Admission or Transfer Discharge Plan Dx/Rx/DC Orders Clinical Impression: Acute hyperkalemia, Hyperlipidemia, H/O aortic valve replacement, Essential hypertension, Atherosclerosis of coronary artery of [place] heart without angina pectoris, First degree heart block, Right bundle branch block, Acute kidney injury, Acute prerenal azotemia, Syncope and collapse, Acute hypotension, Hypercalcemia, Acute hyponatremia Disposition Disposition: Acute Care Hospital [facility]
[2024-09-05 17:32] LABS: Anion Gap 10 (5-15); BUN 108 mg/dL (4-19); BUN/Creat Ratio 30.7 RATIO (10-20); Calcium,Total 11.5 mg/dL (7.6-11.0); Carbon Dioxide 17.0 mmol/L (21.0-32.0); Chloride 103 mmol/L (98-108); Glucose 121 mg/dL (70-99); Potassium 8.5 mmol/L (3.3-5.1)
--- NOTE | 2024-09-05 17:55 | PCM.HP.STD ---
[facility] - General General Date of Admission: 09/05/24 Date of Service: 09/05/24 Chief Complaint: Hypotension with abnormal labs HPI Gracie ODONNELL, is a 83 F who presented to [facility] ED on 09/05/2024 with syncope and abnormal labs. Patient has history of heart failure and was hospitalized here in late July for this. She follows with our outpatient cardiology office. She diuresed well during that hospitalization and was discharged home on increased diuretic dosing. Today patient presented from the pulmonology office for hypotension. Systolic BP was 105 there and typically runs much higher. She reported intermittent dizziness and lightheadedness especially with standing recently as well. In the ED she was found to have severe hyperkalemia with potassium 8.5. Labs also notable for creatinine 3.52 (baseline 1.1), BUN 108, sodium 130, chloride 103, bicarb 17, calcium 11.5. She was mildly hypotensive to the 110s systolic but otherwise in normal sinus rhythm and stable on room air. Importantly, EKG showed mild HI prolongation consistent with first-degree heart block but otherwise showed no changes consistent with hyperkalemia. Patient was given 2 doses of IV calcium gluconate and insulin with dextrose, and she was then started on a sodium bicarb drip at 250 ml/hr. Hospitalist was then contacted for admission. I saw the patient at bedside in the ED, other family members present. Patient was pleasant and was sitting back comfortably in bed, conversing normally and in no acute distress. She reported feeling mildly fatigued currently and states she has had minimal appetite over the past several days. She otherwise denies any acute concerns currently. Will be admitted for further management. [facility] Medical History (Updated 09/05/24 @ 18:05 by Farida Abbott) Hypothyroidism Kidney disease Non-smoker CPAP (continuous positive airway pressure) dependence Sleep apnea Asthma Congestive heart failure (CHF) Hypertension Nonrheumatic aortic (valve) stenosis Atherosclerosis of coronary artery of [place] heart without angina pectoris Obesity Atherosclerotic heart disease of [place] coronary artery with unstable angina pectoris OPHELIA (obstructive sleep apnea) Essential hypertension Fatigue Family history of hypertension Exertional shortness of breath Exertional chest pain Dyspnea on exertion Dizziness and giddiness Hyperlipidemia Carotid bruit Diabetes mellitus Hypokalemia Home Medications ?Medication ?Instructions ?Recorded ?Last Taken ?Type albuterol sulfate 90 mcg/actuation 1 puff inhalation Q4H PRN PRN 08/06/16 Unknown History aerosol inhaler Asthma cholecalciferol (vitamin D3) 25 1,000 unit PO DAILY vitamin 08/06/16 09/04/24 History mcg (1,000 unit) tablet montelukast 10 mg tablet 10 mg PO DAILY allergies 08/06/16 09/04/24 History omega-3 fatty acids-fish oil 300 1 ea PO DAILY supplement 08/06/16 09/04/24 History mg-1,000 mg capsule vitamin A 2,400 mcg capsule 8,000 unit PO DAILY vitamin 08/06/16 09/04/24 History vitamin E mixed 1,000 unit capsule 1,000 unit PO DAILY vitamin 08/06/16 09/04/24 History aspirin 81 mg tablet,delayed 81 mg PO DAILY@0800 heart health 02/11/22 09/05/24 Rx release #90 tabs zinc gluconate 50 mg tablet 50 mg PO DAILY supplement 02/11/22 09/04/24 History lisinopril 40 mg tablet 40 mg PO DAILY blood pressure #90 01/26/24 09/05/24 Rx tabs ezetimibe 10 mg tablet (Zetia) 10 mg PO DAILY cholesterol #90 tabs 04/12/24 09/04/24 Rx cetirizine 10 mg tablet 10 mg PO QDAY PRN allergy symptoms 04/17/24 07/31/24 History magnesium 250 mg tablet 250 mg PO DAILY supplement 04/17/24 09/04/24 History rosuvastatin 5 mg tablet 5 mg PO DAILY cholesterol 04/17/24 07/30/24 History diphenhydramine HCl 25 mg capsule 25 mg PO QHS PRN allergic reaction 07/05/24 07/31/24 History (Benadryl) fluticasone propionate 50 2 spray intranasal DAILY PRN 07/05/24 08/01/24 History mcg/actuation nasal allergy symptoms spray,suspension (Flonase Allergy Relief) levothyroxine 137 mcg tablet 137 mcg PO QDAY thyroid 07/05/24 09/05/24 History (Synthroid) turmeric root extract 500 mg 500 mg PO QDAY supplement 07/05/24 09/04/24 History capsule amlodipine 5 mg tablet 5 mg PO DAILY blood pressure #90 07/13/24 09/05/24 Rx tabs carvedilol 25 mg tablet 25 mg PO BID blood pressure #180 07/31/24 09/05/24 Rx tabs spironolactone 25 mg tablet 25 mg PO DAILY diuretic #90 tabs 07/31/24 09/05/24 Rx fluticasone propionate 115 2 puff inhalation BID breathing 08/01/24 09/04/24 History mcg-salmeterol 21 mcg/actuation HFA inhaler (Advair HFA) furosemide 40 mg tablet 40 mg PO BID #120 tabs 08/03/24 09/05/24 Rx potassium chloride 20 mEq 20 meq PO BIDCM #60 tabs 08/03/24 09/04/24 Rx tablet,extended release(part/cryst) Allergy/AdvReac Type Severity Reaction Status Date / Time Environmental Allergies: Allergy Anaphylaxis Verified 09/05/24 15:54 Uncoded rosuvastatin (From Crestor) AdvReac Intermediate Myalgias Verified 09/05/24 15:54 nifedipine AdvReac Unknown Verified 09/05/24 15:54 simvastatin (From Zocor) AdvReac Myalgias Verified 09/05/24 15:54 Family History Father , age 70 Colon cancer Mother , age 67 CAD (coronary artery disease) Hypertension Brother , age 59 CAD (coronary artery disease) Hypertension Brother Hypertension Diabetes Other Family history of hypertension Surgical History (Updated 09/05/24 @ 17:[address] Ramin Berman MD) History of left heart catheterization (08/09/16) History of parathyroid surgery (02/2002) History of tubal ligation History of cholecystectomy H/O aortic valve replacement (12/22/16) Social History Smoking Status: Never smoker alcohol intake: never substance use type: does not use caffeine: Yes Type: tea Number of servings: 2 what type of physical activity do you participate in: walking frequency: 3-4 times per week duration: 15-30 minutes/day seatbelt use: always do you feel safe at home: Yes ROS Constitutional Constitutional: Reports fatigue; Denies chills, fever(s) or weakness Eyes Eyes: Denies change in vision Cardiovascular Cardiovascular: Denies chest pain, dyspnea on exertion or edema Respiratory/Chest Respiratory/Chest: Denies cough or shortness of breath at rest Gastrointestinal Gastrointestinal: Reports nausea; Denies abdominal pain, constipation, diarrhea or vomiting Genitourinary Genitourinary: Denies dysuria Musculoskeletal Musculoskeletal: Denies arthralgias or myalgias Neurologic Neurologic: Denies dizziness, focal weakness or headache(s) Vital Signs Vital Signs Vital Signs: 09/05/24 15:52 09/05/24 16:11 09/05/24 16:27 Temperature 97.8 F Temperature Source Oral Pulse Rate 58 L Pulse Rate [Lying] 62 Pulse Rate [Sitting (for 1 minute prior to obtaining)] 57 L Pulse Rate [Standing (for 1 minute prior to obtaining)] 54 L Respiratory Rate 20 H Respiratory Effort Normal Respiratory Pattern Normal Blood Pressure 115/28 L Blood Pressure [Lying] 122/41 H Blood Pressure [Sitting (for 1 minute prior to obtaining)] 128/39 H Blood Pressure [Standing (for 1 minute prior to obtaining)] 108/34 L Blood Pressure Mean 57 Blood Pressure Mean [Lying] 68 Blood Pressure Mean [Sitting (for 1 minute prior to obtaining)] 68 Blood Pressure Mean [Standing (for 1 minute prior to obtaining)] 58 Pulse Ox 99 Oxygen Delivery Method Room Air 09/05/24 16:52 09/05/24 17:00 Temperature Temperature Source Pulse Rate 54 L 59 L Pulse Rate [Lying] Pulse Rate [Sitting (for 1 minute prior to obtaining)] Pulse Rate [Standing (for 1 minute prior to obtaining)] Respiratory Rate 20 H 26 H Respiratory Effort Respiratory Pattern Blood Pressure 124/53 H 124/53 H Blood Pressure [Lying] Blood Pressure [Sitting (for 1 minute prior to obtaining)] Blood Pressure [Standing (for 1 minute prior to obtaining)] Blood Pressure Mean 76 76 Blood Pressure Mean [Lying] Blood Pressure Mean [Sitting (for 1 minute prior to obtaining)] Blood Pressure Mean [Standing (for 1 minute prior to obtaining)] Pulse Ox 97 97 Oxygen Delivery Method Room Air Room Air Physical Exam Const alert, oriented x3 and no apparent distress Constitutional Narrative: Pleasant elderly female, class II obesity, mildly fatigued appearing but otherwise sitting back comfortably in bed, conversing normally, in no acute distress. General Appearance: cooperative and comfortable HEENT normocephalic, head/scalp atraumatic, hearing grossly normal bilaterally, nasal mucous membranes and turbinates normal and moist oral mucous membranes Eyes PERRL, EOMs intact bilaterally and conjunctivae normal Neck full ROM Chest inspection of chest normal Resp normal respiratory effort, normal air movement, no use of accessory muscles and clear to auscultation bilaterally Cardio regular rate, regular rhythm, no murmurs and peripheral pulses 2+ throughout GI normal to inspection, nondistended, normoactive bowel sounds, soft to palpation, non-tender and non-distended Back/Spine normal ROM Extremity normal to inspection, full ROM and no pedal edema Skin no rashes or lesions noted Psych mental status grossly normal Results Lab / Micro Data 09/05/24 16:06 09/05/24 16:06 Labs: Laboratory Results - last 24 hr 09/05/24 16:06: Sodium 130 L, Potassium 8.5 H*, Chloride 103, Carbon Dioxide 17.0 L, Anion Gap 10, BUN 108 H*, Creatinine 3.52 H, Est GFR (MDRD) Non-Af 13 L, BUN/Creatinine Ratio 30.7 H, Glucose 121 H, Calcium 11.5 H Assessment & Plan Assessment/Plan (1) Acute hyperkalemia: (2) Acute kidney injury: PLAN: Plan Patient is an 83-year-old female who presented to [facility] ED on 09/05/2024 with hypotension and abnormal labs. 1. Acute severe hyperkalemia ? Admit under inpatient status to PCU as stepdown patient. Potassium 8.5 on admit. Suspect secondary to overdiuresis with home lisinopril, spironolactone and potassium supplement contributing. Notably had hypokalemia during prior hospitalization in July. EKG with first-degree AV block with HI interval 232, otherwise no T wave abnormalities or other hyperkalemia changes. Treated with IV calcium gluconate and insulin/dextrose in the ED. Initiated on sodium bicarb drip at 250 ml/hr, will continue this for 5 hours total. Monitor BMP every 4 hours through tomorrow morning; continue to treat hyperkalemia medically as needed. 2. ALLIE ? Creatinine 3.52, BUN 108 on admit. Baseline creatinine 1.1. Presume prerenal ALLIE due to overdiuresis. On sodium bicarbonate drip as above, will give 1500 mL of this total. Follow-up labs and can give further IV fluids as needed. Monitor daily BMP and urine output. 3. Chronic HFpEF, nonobstructive CAD, hypertension, hyperlipidemia, valvular heart disease s/p TAVR ? Follows with [facility]. Hospitalized in late July for CHF exacerbation. Echo showed EF 55 to 60% and only mild aortic valve regurgitation in setting of prior TAVR from 2017, no other significant abnormalities. Diuresed well during that hospitalization. Suspect overdiuresis causing issues as above. Holding home Lasix, lisinopril and spironolactone. Okay to continue home carvedilol at reduced dose, amlodipine, statin and Zetia. 4. Asthma with seasonal allergies ? Stable on room air, not in acute exacerbation. Continue home inhalers, Singulair, Flonase and cetirizine as needed. 5. Hypothyroidism ? Continue home Synthroid. 6. Class II obesity with OPHELIA ? BMI of 37 on admit. Complicates hospital course, care and prognosis. Continue home PAP therapy at night. DVT prophylaxis: Heparin subcu CODE STATUS: Full code, verified Expected disposition: Home, TBD Total clinical time spent by myself addressing the patient's medical issues, reviewing all the data, and collaborating with patient's care team: 75 minutes. Charges/Coding Visit Charges Inpatient E&M: 74634 Init Hosp L3
[2024-09-05 18:10] LABS: Hematocrit 40.7 % (37-47); Hemoglobin 13.2 g/dL (12.0-15.0); Immature Granulocytes Count 0.030 X10^3/uL (0.0-0.0); Mean Corp Hgb Conc 32.4 g/dL (32-36); Mean Corpuscular Volume 85.0 fL (81-99); Mean Platelet Vol. 13.0 fl (6.2-12.0); NRBC Flagged by Analyzer 0 % (0-5); Platelet Count 134 K/mm3 (150-450); RBC Distribution Width CV 15.1 % (11.6-14.6); RBC Distribution Width SD 47.2 fl (35.1-43.9); Red Blood Count 4.79 M/mm3 (4.2-5.4); White Blood Count 7.6 K/mm3 (4.4-11.0)
[2024-09-05] MEDS: Calcium Gluconate IV 3 GM in Syringe 1 EACH IV (18:18)
[2024-09-05] MEDS: Insulin Lispro 10 UNIT in Syringe 0 ML 6 UNIT IV (18:26)
[2024-09-05] MEDS: Sodium Bicarbonate 150 MEQ in Dextrose 5%-Water (1000mL Bag) 1,000 ML 250 MEQ IV ×2 (18:26→23:46)
[2024-09-05 18:30] LABS: Albumin, Serum 4.4 g/dL (3.4-4.8)
[2024-09-05 18:47] LABS: AST(SGOT) 21 U/L (<=31); Alanine Aminotransfer ALT/SGPT 34 U/L (<=34); Albumin, Serum 4.4 g/dL (3.4-4.8); Alkaline Phosphatase 91 U/L (35-104); Bilirubin, Direct 0.19 mg/dL (0.00-0.30); Globulin 3.1 g/dL (2.2-4.2); Magnesium 2.8 mg/dL (1.5-2.2)
[2024-09-05 20:57] LABS: Anion Gap 10 (5-15); BUN 107 mg/dL (4-19); BUN/Creat Ratio 32.9 RATIO (10-20); Calcium,Total 12.1 mg/dL (7.6-11.0); Carbon Dioxide 17.3 mmol/L (21.0-32.0); Chloride 103 mmol/L (98-108); Estimated Creatinine Clearance 13.27 ml/min (50-250); Glucose 188 mg/dL (70-99); Potassium 7.7 mmol/L (3.3-5.1)
[2024-09-05] MEDS: Heparin Injection (Vial) 5,000 UNIT/ML VIAL 5000 UNIT SC (21:37)
[2024-09-05] MEDS: Albuterol 2.5 MG/3 ML VIAL.NEB. INHALATION (21:55)
[2024-09-05] MEDS: Budesonide Respules 0.5 MG/2 ML AMPUL.NEB. INHALATION (21:55)
--- OUTSIDE RECORDS SUMMARY | 2024-09-05 23:04 | XMS RPT_ITS | CCD ---
Author Organization [facility] Care Team Providers Care Shoe Planner Name Role Phone CARIN Webb, Coni Taylor Unavailable Unavailabl e O'BISHNU, NASEEM Unavailable Unavailable O'BISHNU, NASEEM Unavailable Unavailable TALAMPAS, PAM Unavailable Unavailable WILLEM, BRIGITTE L Unavailable Unavailable TALAMPAS, PAM Unavailable Unavailable CLAU, REGGIE S Unavailable Unavailable O'BISHNU, NASEEM Unavailable Unavailable O'BISHNU, NASEEM Unavailable Unavailable TALAMPAS, PAM Unavailable Unavailable Sommer Lebronricia Y Unavailable Snow DEL ROSARIO, Genie Quintana Unavailable Unavailable Bernardino Noni Y Unavailable Snow DEL ROSARIO, Genei Quintana Unavailable Unavailable Dyana DEL ROSARIO, Dana Jamison Unavailable Cale Lebronia Y Unavailable Dyana RN, Dana Jamison Unavailable Snow DEL ROSARIO, Genie Quintana Unavailable Unavailable CARIN Webb, Coni Taylor Unavailable Unavailabl maddie Adamson RN, Genie A Unavailable Unavailable CARIN Webb, Coni Taylor Unavailable Unavailabl e Sommer Lebronricia Y Unavailable Snow RN, Genie Quintana Unavailable Unavailable Snow RN, Genie A Unavailable Unavailable Snow RN, Genie A Unavailable Unavailable Bernardino Nnoi Y Unavailable Lebron, Noni Y Unavailable Bernardino Noni Y Unavailable Pam Mcgill MD Primary Care Provider Pam Mcgill MD Primary Care Provider Pam Mcgill MD Primary Care Provider Dr. Pam Mcgill Primary Care Provider Dr. Pam Mcgill Referring Provider Dr. Reggie Olguin Attending Provider Sydnee, Dr. Pam Aguilera Primary Care Provider Sydnee, Dr. Pam Aguilera Referring Provider Jere EQUINE DENTIST, EQUINE DENTIST-C Ginette Attending Provider Dr. Reggie Olguin Attending Provider Sydnee, Dr. Pam Aguilera Primary Care Provider Sydnee, Dr. Pam Aguilera Referring Provider Jere EQUINE DENTIST, EQUINE DENTIST-C Ginette Attending Provider Clau, Dr. Paredes Attending Provider Pam Mcgill MD Primary Care Provider Alvarez CREASING AND CUTTING PRESS FEEDER.DIRECTOR OF BUSINESS OPERATIONS, Haily Unavailable Aleah CREASING AND CUTTING PRESS FEEDER.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, Betina Unavailable Aleah CREASING AND CUTTING PRESS FEEDER.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, Betina Unavailable Sydnee RAIN, Dr. Pam Aguilera Primary Care Provider Sydnee RAIN, Dr. Pam Aguilera Referring Provider Dr. Reggie Olguin MD Attending Provider Dr. Reggie Olguin MD Referring Provider Dana Modi Attending Provider Dana Modi Referring Provider Dr. Alexis Richardson DO Emergency Provider Emily RAIN, Dr. Garnica Admit Provider Unavailable Emily RAIN, Dr. Garnica Attending Provider Unavaila ble Antonio CREASING AND CUTTING PRESS FEEDER.DIRECTOR OF BUSINESS OPERATIONS, Haily Unavailable Michelle RAIN, Dr. Hunt Attending Provider Emily RAIN, Dr. Garnica Other Provider Unavailable Sydnee RAIN, Dr. Pam Aguilera Primary Care Provider Clau RAIN, Dr. Paredes Attending Provider Sydnee RAIN, Dr. Pam Aguilera Referring Provider [phone] Michelle RAIN, Dr. Hunt Attending Provider Emily RAIN, Dr. Garnica Referring Provider Unavaila ble Dana Modi Attending Unavail able Talampas, Pam D Primary Care Unavailable Talampas, Pam D Referring Unavailable Nahun Diaz Attending Unavailable Nahun Diaz Referring Unavailable Talampas, Pam D Primary Care Unavailable Reggie Olguin Attending Unavailable Reggie Olguin Referring Unavailable Talampas, Pam D Primary Care Unavailable Dana Modi Attending Unavail able Lou DE LOS SANTOS, Dana Taylor Referring Unavail able Talampas, Pam D Primary Care Unavailable Lou DE LOS SANTOS, Dana Taylor Referring Unavail able Lou DE LOS SANTOS, Dana Taylor Attending Unavail able Talampas, Pam D Primary Care Unavailable Nahun Diaz Attending Unavailable Nahun Diaz Admitting Unavailable Talampas, Pam D Primary Care Unavailable Reggie Olguin Attending Unavailable Talampas, Pam D Primary Care Unavailable Michael Martinez Attending Unavailable Raghuampas, Pam D Primary Care Unavailable Nahun Diaz Attending Unavailable Nahun Diaz Admitting Unavailable Nahun Diaz Consulting Unavailable Talampas, Pam D Primary Care Unavailable Dana Modi Attending Unavail able Talampas, Pam D Referring Unavailable Talampas, Pam D Primary Care Unavailable Reggie Olguin Attending Unavailable Talampas, Pam D Primary Care Unavailable Talampas, Pam D Referring Unavailable TALAMPAS, PAM D Referring Unavailable TALAMPAS, PAM D Primary Care Unavailable TALAMPAS, PAM D Attending Unavailable TALAMPAS, PAM D Primary Care Unavailable ROMARIO HURST Referring Unavailable TALAMPAS, PAM D Primary Care Unavailable TALAMPAS, PAM D Attending Unavailable TALAMPAS, PAM D Primary Care Unavailable TALAMPAS, PAM D Primary Care Unavailable TALAMPAS, PAM D Attending Unavailable TALAMPAS, PAM D Primary Care Unavailable HAILY ALVAREZ Attending Unavailable TALAMPAS, PAM D Primary Care Unavailable MARIYA MCADAMS Attending Unavailable ALVAREZ, HAILY Referring Unavailable TALAMPAS, PAM D Primary Care Unavailable TALAMPAS, PAM D Referring Unavailable TALAMPAS, PAM D Primary Care Unavailable TALAMPAS, PAM D Referring Unavailable TALAMPAS, PAM D Primary Care Unavailable TALAMPAS, PAM D Referring Unavailable TALAMPAS, PAM D Primary Care Unavailable TALAMPAS, PMA D Referring Unavailable TALAMPAS, PAM D Primary Care Unavailable TALAMPAS, PAM D Referring Unavailable TALAMPAS, PAM D Primary Care Unavailable TALAMPAS, PAM D Primary Care Unavailable BROWN, MARIYA Referring Unavailable TALAMPAS, PAM D Primary Care Unavailable BROWN, MARIYA Referring Unavailable TALAMPAS, PAM D Primary Care Unavailable BROWN, MARIYA Referring Unavailable TALAMPAS, PAM D Primary Care Unavailable TALAMPAS, PAM D Attending Unavailable TALAMPAS, PAM D Primary Care Unavailable TALAMPAS, PAM D Referring Unavailable TALAMPAS, PAM D Primary Care Unavailable TALAMPAS, PAM D Referring Unavailable TALAMPAS, PAM D Primary Care Unavailable Dr. Ramin Berman MD Referring Provider [phone] Ramin Berman MD Emergency Provider Dr. Neeraj Velázquez DO Admit Provider [phone] Dr. Neeraj Velázquez DO Attending Provider Allergies Allergy Classification Reported Allergen(s) Allergy Type Date of Onset Reaction(s) Facility (20 sources) NIFEdipine; Translations: [nifedipine] Drug Allergy 2 Unknown [facility] Work Phone: (19 sources) simvastatin Drug Allergy 1 Myalgias [facility] Work Phone: (14 sources) environmental [Other] Propensity to adverse reactions 7 Other: See Comments [facility] Work Phone: (20 sources) Jelly Beans; Translations: [JELLY BEANS] Propensity to adverse reactions 7 [facility] (20 sources) Simvastatin; Translations: [SIMVASTATIN] Drug Allergy 1 Myalgia, Other: See Comments [facility] Work Phone: (20 sources) Fragrances; Translations: [FRAGRANCES] Allergy to substance 9 Other: See Comments [facility] Work Phone: (10 sources) rosuvastatin Drug Allergy 2 Myalgias [facility] (1 source) fragrance Allergy to substance 2 respiratory depression, anaphylaxis [facility] (10 sources) Environmental Allergies: Uncoded; Translations: [Environmental Allergies: Uncoded] Allergy to substance 3 Anaphylaxis [facility] Comment on above: perfume- musk and fl oral (20 sources) Perfume; Translations: [PERFUME] Propensity to adverse reactions to drug 3 Unknown [facility] Work Phone: (20 sources) Smoke; Translations: [SMOKE] Propensity to adverse reactions 3 Unknown [facility] (20 sources) Vinegar; Translations: [VINEGAR] Propensity to adverse reactions to food 3 Unknown [facility] (1 source) rosuvastatin Drug Allergy 5 [facility] (1 source) Simvastatin Drug Allergy 5 [facility] Medications Current Medications Medication Drug Class(es) Dates Sig (Normalized) Sig (Original) [id number] 200 actuat albuterol 0.09 mg/actuat metered dose inhaler (20 sources) beta2-Adrenergic Agonist Start: 02-24-2024 take 2 puff(s) by inhalation every four hours as needed albuterol HFA (VENTOLIN HFA) 90 mcg/actuation inhaler Inhale 2 Puffs as instructed every 4 hours as needed. 3 Each 1 02/24/2024 Active Start: 12-03-2020 End: 02-24-2024 take 2 puff(s) by inhalation every four hours as needed albuterol HFA (VENTOLIN HFA) 90 mcg/actuation inhaler Inhale 2 Puffs as instructed every 4 hours as needed. 24 g 1 11/11/2021 02/24/2024 Discontinued Start: 08-06-2016 Albuterol Sulf ate 1 PUFF inhaler Active 1 NMA INHALATION EVERY 4 HOURS NEEDED as needed for Asthma August 06, 2016 12:00am Start: 08-06-2016 take 1 puff(s) by in halation every four hours as needed Albuterol Sulfate Active 1 PUFF INHALATION EVERY 4 HOURS NEEDED August 06, 2016 12:00am Start: 06-05-2010 PROAIR HFA AER S CFC free 90 mcg/inh Take as directed ALBUTEROL SULFATE AERS [id number] Janny Huffman Start: 06-05-2010 PROAIR HFA AER S CFC free 90 mcg/inh Take as directed ALBUTEROL SULFATE AERS [id number] Janny Claudia Huffman Comment on above: Inhale 2 Puffs as in structed every 4 hours as needed. Albuterol Sulfate 1 PUFF inhaler (4 sources) Start: Albuterol Sulfate 1 PUFF inhaler Active 1 NMA INHALATION EVERY 4 HOURS NEEDED as needed for Asthma August 06, 2016 12:00am amLODIPine 5 mg oral tablet (20 sources) Dihydropyridine Calcium Channel Lisa Start: take 1 tablet by mouth once daily Amlodipine 5 mg tablet Active 5 mg PO DAILY 90 July 13, 2024 9:46am blood pressure Start: 12-05-2018 End: 07-13-2024 take 1 tablet by mouth once daily Amlodipine 10 mg tablet Discontinued 10 mg PO DAILY April 12, 2024 5:07pm July 13, 2024 9:46am Comment on above: Take 1 tablet by elio th once daily. (Dr. Olguin) amoxicillin 875 mg / clavulanate 125 mg oral tablet (3 sources) Penicillin-class Antibacterial Start: End: take 1 tablet by mouth twice daily amoxicillin-clavula era potassium (AUGMENTIN) 875-125 mg per tablet Indications: Community acquired pneumonia, unspecified laterality Take 1 tablet by mouth two times a day for 5 days. 10 tablet 05/28/2024 06/02/2024 Active Start: 07-13-2022 End: 07-20-2022 take 1 tablet by mouth twice daily amoxicillin-clavulanic acid (AUGMENTIN) 875-125 mg per tablet Indications: Acute sinusitis, recurrence not specified, unspecified location Take 1 tablet by mouth twice daily for 7 days. 14 tablet 0 07/13/2022 07/20/2022 Active Comment on above: Take 1 tablet by elio twice daily for 7 days. azithromycin 250 mg oral tablet (2 sources) Macrolide Antimicrobial Start: 05-29-19 End: 06-03-19 take 2 tablets by mouth once daily, then take 1 tablet by mouth once daily azithromycin (ZITHROMAX) 250 mg tablet Indications: Community acquired pneumonia, unspecified laterality Take 2 tablets by mouth once daily for 1 day, THEN 1 tablet once daily for 4 days. 6 tablet 05/28/2024 06/02/2024 Active carvedilol 25 mg oral tablet (20 sources) alpha-Adrenergic Lisa, beta-Adrenergic Lisa Start: 05-25-19 End: 08-01-19 take 1 tablet by mouth twice daily at mealtime Carvedilol 25 mg tablet Active 25 mg PO TWICE A DAY 180 3 July 31, 2024 8:37am blood pressure must administer with a meal/food Start: 05-15-2024 End: 05-24-2024 take 2 tablets by mouth twice daily at mealtime Carvedilol 6.25 mg tablet Discontinued 12.5 mg PO TWICE A DAY 180 3 May 15, 2024 1:30pm May 24, 2024 1:44pm must administer with a meal/food Start: 02-24-2024 End: 05-31-2024 take 1 tablet by mouth twice daily carvedilol (COREG) 3.125 mg tablet Take 1 tablet by mouth two times a day. 02/24/2024 05/31/2024 Discontinued (Dosage adjustment) Start: 03-01-2018 End: 05-15-2024 take 1 tablet by mouth twice daily at mealtime Carvedilol 6.25 mg tablet Discontinued 6.25 mg PO TWICE A DAY 180 3 January 26, 2024 9:20am May 15, 2024 1:31pm must administer with a meal/food Comment on above: Take 1 tablet by [facility] twice daily. cetirizine hydrochloride 10 mg oral tablet (20 sources) Histamine-1 Receptor Antagonist Start: take 1 tablet by mouth once daily as needed Cetirizine 10 mg tablet Active 10 mg PO daily as needed for allergy symptoms April 17, 2024 1:00am Start: 01-17-2015 End: 07-17-2019 take 1 capsule by mouth once daily Cetirizine 10 MG capsule Discontinued 10 mg PO DAILY August 06, 2016 12:00am July 17, 2019 9:58am Start: 06-05-2010 take 1 tablet by elio once daily ZYRTEC ALLERGY 10 MG TABS One tablet by mouth daily CETIRIZINE HCL [id number] Janny Huffman Comment on above: Take by mouth. cholecalciferol 0.025 mg oral tablet (20 sources) Vitamin D Start: 7 take 1 tablet by mouth once daily Cholecalciferol (Vitamin D3) 1,000 UNIT tablet Active 1000 U PO DAILY August 06, 2016 12:00am vitamin Start: 01-17-2015 take 1 capsule by mo [facility] once daily Cholecalciferol, Vitamin D3, 1,000 unit cap Take 1 capsule by mouth once daily. 0 01/17/2015 Active Comment on above: Take 1 capsule by mo [facility] once daily. COMPOUNDED PRESCRIPTION (20 sources) Start: 01-05-2011 COMPOUNDED PRESCRIPTION CPAP head gear Diagnosis :OPHELIA 327.23 1 Each 0 01/05/2011 Active Comment on above: CPAP head gear Diagnosis :OPHELIA 327.23 CPAP (20 sources) Start: 02-24-2024 CPAP Continue CPAP at 9cm H2O with humidification. Refills for Mask (per patient preference) optional chin strap (if indicated) , filters, tubing, humidifier and lifetime supplies. G47.33 1 Each 02/24/2024 Active Start: 10-18-2023 End: 02-24-2024 CPAP Continue CPAP at 9cm H2 O with humidification. Refills for Mask (per patient preference) optional chin strap (if indicated) , filters, tubing, humidifier and lifetime supplies. G47.33 1 Each 10/18/2023 02/24/2024 Discontinued Start: 10-18-2023 CPAP Continue CPAP at 9cm H2O with humidification. Refills for Mask (per patient preference) optional chin strap (if indicated) , filters, tubing, humidifier and lifetime supplies. G47.33 1 Each 10/18/2023 Active Start: 10-20-2022 End: 10-18-2023 CPAP Indications: OPHELIA on CPA P Continue CPAP at 9cm H2O with humidification. Refills for Mask (per patient preference) optional chin strap (if indicated) , filters, tubing, humidifier and lifetime supplies. G47.33 1 Each 11 10/20/2022 10/18/2023 Discontinued Start: 10-20-2022 CPAP Indicatio ns: OPHELIA on CPAP Continue CPAP at 9cm H2O with humidification. Refills for Mask (per patient preference) optional chin strap (if indicated) , filters, tubing, humidifier and lifetime supplies. G47.33 1 Each 11 10/20/2022 Active Start: 05-02-2020 CPAP Indicatio ns: OPHELIA on CPAP Needs replacement CPAP at 9cm H2O with humidification. Refills for Mask (per patient preference) optional chin strap (if indicated) , filters, tubing, humidifier and lifetime supplies. G47.33 1 Device 0 05/02/2020 Active Comment on above: Needs replacement CP AP at 9cm H2O with humidification. Refills for Mask (per patient preference) optional chin strap (if indicated) , filters, tubing, humidifier and lifetime supplies. G47.33 Continue CPAP at 9cm H2O with humidification. Refills for Mask (per patient preference) optional chin strap (if indicated) , filters, tubing, humidifier and lifetime supplies. G47.33 diphenhydrAMINE hydrochloride 25 mg oral capsule (20 sources) Histamine-1 Receptor Antagonist Start: 025 take 1 capsule by mouth at bedtime as needed Diphenhydramine Hcl (Benadryl) 25 mg capsule Active 25 mg PO AT BEDTIME as needed for allergic reaction July 05, 2024 12:00am Start: 05-11-2017 End: 07-17-2019 Diphenhydramine Hcl (Allergy (Diphenhydramine)) 25 mg tablet Discontinued 25 mg PO .As needed May 11, 2017 1:00am July 17, 2019 9:58am Start: 01-12-2017 DIPHENHYDRAMIN E HCL 25 MG TABS as needed DIPHENHYDRAMINE HCL [id number] Coni Webb RN Start: 01-12-2017 DIPHENHYDRAMIN E HCL 25 MG TABS as needed DIPHENHYDRAMINE HCL [id number] Coni Webb RN Start: 10-07-2010 End: 03-10-2011 take 1 tablet by mouth at bedtime BENADRYL 25 MG TABS One tablet by mouth at bedtime. DIPHENHYDRAMINE HCL [id number] Janny Huffman Start: 03-13-2009 End: 04-17-2024 take 1 capsule by mouth at bedtime as needed Diphenhydramine Hcl (Benadryl) 25 mg capsule Discontinued 25 mg PO AT BEDTIME as needed February 11, 2022 1:00am April 17, 2024 10:55am Comment on above: Take one(1) tablet d aily at bedtime as necessary (uses 5-6 x's a week) fluticasone propionate 0.05 mg/actuat metered dose nasal spray (20 sources) Corticosteroid Start: take 50 ug nasal route once daily as needed Fluticasone Propionate (Flonase Allergy Relief) 50 mcg/actuation spray,suspension Active 2 NMA INTRANASAL DAILY as needed for allergy symptoms July 05, 2024 12:00am administer into each nostril Start: 02-21-2023 take 2 spray(s) by [facility] once daily as needed fluticasone (FLONASE) 50 mcg/actuation nasal spray Use 2 Sprays in each nostril once daily as needed for cold/allergy symptoms. Rinse mouth after use. 02/21/2023 Active Start: 03-10-2011 End: 04-12-2013 FLUTICASONE PROPIONATE 50 MC G/ACT SUSP (0.05mg/inh) 2 sprays each nostril once a day FLUTICASONE PROPIONATE [id number] Reggie Olguin MD Start: 03-10-2011 End: 04-12-2013 take 0.05 mg by inhalation once daily FLUTICASONE PROPIONATE 50 MCG/ACT SUSP (0.05mg/inh) 2 sprays each nostril once a day FLUTICASONE PROPIONATE [id number] Genie Adamson RN Fluticasone Propion-Salmeterol (10 sources) Corticosteroid, beta2-Adrenergic Agonist Start: 08-01-2024 Fluticasone Propion-Salmeterol (Advair Hfa) 115-21 mcg/actuation HFA aerosol inhaler Active 2 NMA INHALATION TWICE A DAY August 01, 2024 12:00am breathing Start: 08-01-2024 Fluticasone Pr opion-Salmeterol (Advair Hfa) 115-21 mcg/actuation HFA aerosol inhaler Active 2 NMA INHALATION TWICE A DAY August 01, 2024 12:00am Start: 08-01-2024 Fluticasone Pr opion-Salmeterol [Fluticasone Propionate 115 Mcg-Salmeterol 21 Mcg/Actuation Hfa Inhaler] (Fluticasone Propionate 115 Mcg-Salmeterol 21 ) 115-21 mcg/actuation HFA aerosol inhaler Active 2 NMA INHALATION TWICE A DAY August 01, 2024 12:00am Start: 07-19-2024 End: 07-19-2024 take 2 puff(s) by inhalation twice daily fluticasone-salmeterol HFA (ADVAIR HFA) 115-21 mcg/actuation inhaler Inhale 2 puffs as instructed two times a day. 1 each 07/19/2024 Active furosemide 40 mg oral tablet (20 sources) Loop Diuretic Start: 08-03-2024 take 1 tablet by mouth twice daily Furosemide 40 mg tablet Active 40 mg PO TWICE A DAY 120 3 August 03, 2024 12:02pm Start: 08-01-2019 End: 08-01-2019 take 1 tablet by mouth twice daily Furosemide 40 mg tablet Discontinued 40 mg PO TWICE A DAY August 01, 2019 1:18pm August 01, 2019 3:38pm Start: 12-06-2017 End: 03-01-2018 Furosemide 40 mg tablet Disc ontinued 40 mg PO .[facility] December 06, 2017 3:51pm March 01, 2018 2:17pm Start: 03-29-2016 End: 08-03-2024 take 1 tablet by mouth once daily Furosemide 40 mg tablet Discontinued 40 mg PO DAILY 90 April 12, 2024 5:08pm August 03, 2024 12:02pm Start: 03-29-2016 take 1 tablet by elio th twice daily LASIX 40 MG TABS One half tablet by mouth twice daily FUROSEMIDE [id number] Coni Webb RN Comment on above: Take 40 mg by mouth once daily. levothyroxine sodium 0.137 mg oral tablet (20 sources) l-Thyroxine Start: 03-21-2024 Levothyroxine (Synthroid) 137 mcg tablet Active 137 ug PO daily July 05, 2024 12:00am thyroid Take 1 tab daily, add 1/2 tab on Sundays Start: 02-21-2023 End: 03-02-2024 levothyroxine (SYNTHROID) 13 7 mcg tablet Indications: Acquired hypothyroidism Take 1 tablet by mouth daily before breakfast. Plus add half pill on Sundays (total 7.5 pills taken per week) 120 tablet 3 10/18/2023 03/02/2024 Discontinued Start: 03-13-2021 End: 03-19-2022 take 1 tablet by mouth once daily before breakfast levothyroxine (SYNTHROID) 137 mcg tablet Indications: Acquired hypothyroidism Take 1 tablet by mouth daily before breakfast. 90 tablet 3 03/19/2022 Active Start: 05-11-2017 End: 07-05-2024 take 1 capsule by mouth once daily Levothyroxine 137 mcg capsule Discontinued 137 ug PO daily 0 May 11, 2017 1:00am July 05, 2024 1:00pm Start: 04-12-2013 SYNTHROID 150 MCG TABS 125 mcg on Mon and Fri, 150 on the other days of the week LEVOTHYROXINE SODIUM [id number] Reggie Olguin MD Start: 03-10-2011 take 1 tablet by elio th once daily SYNTHROID 150 MCG TABS One tablet by mouth daily LEVOTHYROXINE SODIUM [id number] Genie Adamson RN Start: 06-05-2010 End: 05-13-2017 take 1 tablet by mouth once daily Levothyroxine 137 MCG tablet Discontinued 137 ug PO DAILY August 06, 2016 12:00am May 13, 2017 3:27pm Comment on above: Take 1 tablet by elio th daily before breakfast. Magnesium (20 sources) Start: 04-17-2024 take 1 tablet by mouth once daily Magnesium 250 mg tablet Active 250 mg PO DAILY April 17, 2024 1:00am supplement Start: 04-17-2024 take 1 tablet by elio th once daily Magnesium 250 mg tablet Active 250 mg PO DAILY April 17, 2024 1:00am Start: 04-17-2024 take 1 tablet by elio th once daily Magnesium 250 mg tablet Active 250 mg PO daily April 17, 2024 1:00am take 1 tablet by elio th once daily Magnesium 250 mg tab Take 250 mg by mouth once daily. Active take 1 tablet by elio th once daily Magnesium 250 mg tab Take 250 mg by mouth once daily. 0 Active Miscellaneous Medical Supply (18 sources) Start: 02-24-2024 Miscellaneous Medical Supply Potassium OTC 1 capsule once daily 02/24/2024 Active Start: 02-24-2024 End: 02-24-2024 Miscellaneous Medical Supply Potassium OTC 1 tablet once daily 02/24/2024 02/24/2024 Discontinued montelukast 10 mg oral tablet (20 sources) Leukotriene Receptor Antagonist Start: 06-05-2010 End: 02-24-2024 take 1 tablet by mouth once daily Montelukast 10 MG tablet Active 10 mg PO DAILY August 06, 2016 12:00am allergies Comment on above: Take 1 tablet by elio th once daily. As directed Multivitamin capsule (20 sources) take 1 capsule by mouth once daily Multivitamin capsule Take 1 capsule by mouth once daily. Active take 1 capsule by mouth once lianet ly Multivitamin capsule Take 1 capsule by mouth once daily. 0 Active Comment on above: Take 1 capsule by mo ut once daily. Multivitamin preparation (3 sources) Start: 02-16-2017 take 1 tablet by mouth once daily Multivitamin Active 1 TABLET PO daily February 16, 2017 1:00am Start: 02-16-2017 take 1 tablet by elio th once daily Multivitamin Active 1 TABLET PO daily February 16, 2017 12:00am [place]-3 Fatty Acids-Fish Oil (3 sources) Start: 08-06-2016 [place]-3 Fatty Acids-Fish Oil Active 1 EACH PO DAILY August 06, 2016 12:00am Start: 08-06-2016 [place]-3 Fatty Acids-Fish Oil Active 1 EACH PO DAILY August 05, 2016 11:00pm [place]-3 Fatty Acids-Fish Oil 1 EACH capsule (7 sources) Start: 08-06-2016 [place]-3 Fatty Acids-Fish Oil 1 EACH capsule Active 1 NMA PO DAILY August 06, 2016 12:00am supplement Start: 08-06-2016 [place]-3 Fatty Acids-Fish Oil 1 EACH capsule Active 1 NMA PO DAILY August 06, 2016 12:00am OME[place]-3 FATTY ACIDS-FISH OIL 300 MG-1,000 MG CAP (20 sources) Start: 03-13-2009 OMEGA-3 FATTY ACIDS-FISH OIL 300 MG-1,000 MG CAP Take one(1) tablet daily. 0 0 03/13/2009 Active Comment on above: Take one(1) tablet d shawna. microencapsulated potassium chloride 20 meq extended release oral tablet (20 sources) Start: 08-03-2024 take 1 tablet by mouth twice daily at mealtime Potassium Chloride 20 mEq Tablet,Er Particles/Odilia ls Active 20 meq PO TWICE DAILY WITH MEALS 60 0 August 03, 2024 12:00am Start: 04-17-2024 End: 07-05-2024 take 1 capsule by mouth once daily Potassium Chloride 10 mEq capsule, extended release Discontinued 10 meq PO daily April 17, 2024 1:00am July 05, 2024 1:03pm Start: 02-16-2017 End: 12-06-2017 take 2 tablets by mouth twice daily Potassium Chloride 20 MEQ tablet Discontinued 40 meq PO TWICE A DAY February 16, 2017 3:06pm December 06, 2017 3:51pm Start: 02-16-2017 End: 12-06-2017 take 40 mEq by mouth twice daily Potassium Chloride Discontinued 40 MEQ PO TWICE A DAY February 16, 2017 3:06pm December 06, 2017 3:51pm Start: 08-06-2016 End: 02-16-2017 take 1 tablet by mouth twice daily Potassium Chloride 20 MEQ tablet Discontinued 20 meq PO TWICE A DAY August 06, 2016 12:00am February 16, 2017 3:10pm Start: 03-10-2011 take 4 tablets by mo [facility] twice daily POTASSIUM CHLORIDE ER 10 MEQ CR-TABS Four tablets by mouth twice daily POTASSIUM CHLORIDE [id number] Dana Turpin RN Start: 03-10-2011 take 2 tablets by mo ut twice daily POTASSIUM CHLORIDE ER 20 MEQ CR-TABS Two tablets by mouth twice daily POTASSIUM CHLORIDE [id number] Reggie Olguin MD Start: 06-05-2010 take 2 tablets by mo [facility] twice daily POTASSIUM CHLORIDE ER 10 MEQ CR-TABS Two tablets by mouth twice daily POTASSIUM CHLORIDE [id number] Dana Blake PA-C rosuvastatin calcium 5 mg oral tablet (20 sources) HMG-CoA Reductase Inhibitor Start: 04-17-2024 take 1 tablet by mouth once daily Rosuvastatin 5 mg tablet Active 5 mg PO DAILY April 17, 2024 10:53am cholesterol ONLY TAKE OIN TUESDAY AND TUESDAY Start: 02-24-2024 take 1 tablet by elio th two times weekly rosuvastatin (CRESTOR) 5 mg tablet Take 1 tablet by mouth two times a week. 02/24/2024 Active Start: 05-31-2023 End: 04-17-2024 take 1 tablet by mouth every week Rosuvastatin 5 mg tablet Discontinued 5 mg PO .Weekly 30 May 31, 2023 2:38pm April 17, 2024 10:55am Start: 06-05-2010 End: 02-14-2023 take 1 tablet by mouth once Rosuvastatin 5 mg tablet Discontinued 5 mg PO .3X week 36 December 10, 2019 4:43pm February 12, 2021 11:39am Start: 06-05-2010 take 1 tablet by elio th every week CRESTOR 5 MG TABS One tablet by mouth daily-4 days per week ROSUVASTATIN CALCIUM [id number] Reggie Olguin MD Comment on above: Take 1 tablet by elio th every Tuesday,Tuesday,Tuesday. spironolactone 25 mg oral tablet (20 sources) Aldosterone Antagonist Start : 07-05 End: 07-31 take 1 tablet by mouth once daily Spironolactone 25 mg tablet Active 25 mg PO DAILY July 31, 2024 8:37am diuretic Start: 06-05-2010 End: 06-13-2015 take 1 tablet by mouth once daily SPIRONOLACTONE 25 MG TABS One tablet by mouth daily SPIRONOLACTONE [id number] Reggie Olguin MD Turmeric extract (19 sources) TURMERIC ORAL Ta ke 1 Dose by mouth two times a day. 1 gummie twice daily Active TURMERIC ORAL Ta ke 1 Dose by mouth two times a day. 1 gummie twice daily 0 Active Turmeric Root Extract 500 mg capsule (6 sources) Start: 07-05-2024 take 1 capsule by mouth once daily Turmeric Root Extract 500 mg capsule Active 500 mg PO daily July 05, 2024 12:00am supplement Start: 07-05-2024 take 1 capsule by mo [facility] once daily Turmeric Root Extract 500 mg capsule Active 500 mg PO daily July 05, 2024 12:00am ubidecarenone (CO Q-10 ORAL) (20 sources) ubidecarenone (C O Q-10 ORAL) Take by mouth once daily. Active ubidecarenone (C O Q-10 ORAL) Take by mouth once daily. 0 Active Comment on above: Take by mouth once d aily. vitamin a 2.4 mg oral capsule (20 sources) Vitamin A Start: 08-06-2016 Vitamin A 8,000 UNIT capsule Active 8000 U PO DAILY August 06, 2016 12:00am vitamin Start: 06-13-2015 VITAMIN A PALM ITATE TABS 8000u daily VITAMIN A TABS [id number] Reggie Olguin MD Start: 06-13-2015 VITAMIN A PALM ITATE TABS 8000u daily VITAMIN A TABS [id number] Reggie Olguin MD VITAMIN A PALMITATE ORAL (20 sources) VITAMIN A PALMIT ATE ORAL Take by mouth. Active VITAMIN A PALMIT ATE ORAL Take by mouth. 0 Active Comment on above: Take by mouth. vitamin e 450 mg oral capsule (20 sources) Start: 08-06-2016 Vitamin E Mixe d 1,000 UNIT capsule Active 1000 U PO DAILY August 06, 2016 12:00am vitamin Start: 12-16-2015 take 1 tablet by [facility] once daily VITAMIN E 1000 UNIT CAPS One tablet by mouth daily VITAMIN E [id number] Bob WOLFFP-C Start: 06-05-2010 End: 12-17-2014 take 1 tablet by mouth once daily VITAMIN E 400 UNIT CAPS One tablet by mouth daily VITAMIN E [id number] Dana Blake PA-C Start: 06-05-2010 End: 12-17-2014 take 1 tablet by mouth once daily VITAMIN E 400 UNIT CAPS One tablet by mouth daily VITAMIN E [id number] Janny Huffman Comment on above: Take 1,000 Units by mouth once daily. zinc gluconate 50 mg oral tablet (10 sources) Start: 02-11-2022 take 1 tablet by mouth once daily Zinc Gluconate 50 mg tablet Active 50 mg PO DAILY February 11, 2022 1:00am supplement Completed/Discontinued Medications Medication Drug Class(es) Dates Sig (Normalized) Sig (Original) acetaminophen 500 mg oral tablet (6 sources) Start: 11-02-2017 End: 03-19-2022 take 2 tablets by mouth three times daily acetaminophen (TYLENOL EXTRA STRENGTH) 500 mg tablet Take 2 tablets by mouth three times daily. 0 11/02/2017 03/19/2022 Discontinued Comment on above: Take 2 tablets by mo ut three times daily. acetaminophen 325 mg / HYDROcodone bitartrate 5 mg oral tablet (20 sources) Opioid Agonist Start: 08-06-2016 End: 12-06-2017 Hydrocodone-Acetami nophen 1 TABLET tablet Discontinued 1 {tbl} PO EVERY 6 HOURS NEEDED as needed for Pain August 06, 2016 12:00am December 06, 2017 3:27pm Start: 08-06-2016 End: 12-06-2017 take 1 tablet by mouth every six hours as needed Hydrocodone-Acetaminophen Discontinued 1 TABLET PO EVERY 6 HOURS NEEDED August 06, 2016 12:00am December 06, 2017 3:27pm Start: 06-13-2015 NORCO 5-325 MG TABS as needed HYDROCODONE-ACETAMINOPHEN [id number] Reggie Olguin MD Start: 10-07-2010 VICODIN 5-500 MG TABS As needed HYDROCODONE-ACETAMINOPHEN [id number] Janny Huffman Start: 10-07-2010 End: 10-24-2013 VICODIN 5-500 MG TABS As nee ded HYDROCODONE-ACETAMINOPHEN [id number] Dana Blake PA-C Start: 10-07-2010 VICODIN 5-500 MG TABS As needed HYDROCODONE-ACETAMINOPHEN [id number] Janny Huffman Start: 10-07-2010 End: 10-24-2013 VICODIN 5-500 MG TABS As nee ded HYDROCODONE-ACETAMINOPHEN [id number] Dana Blake PA-C Apple Cider Vinegar (16 sources) End: 02-24-2024 APPLE CIDER VINEGAR ORAL Raul e by mouth. 02/24/2024 Discontinued APPLE CIDER VINE GAR ORAL Take by mouth. Active APPLE CIDER VINE GAR ORAL Take by mouth. 0 Active Comment on above: Take by mouth. aspirin 81 mg delayed release oral tablet (20 sources) Platelet Aggregation Inhibitor, Nonsteroidal Anti-inflammatory Drug Start: 06-05-2010 End: 02-11-2022 take 1 tablet by mouth once daily Aspirin 81 MG tablet Discontinued 81 mg PO DAILY@0800 August 06, 2016 12:00am February 11, 2022 12:55pm Start: 06-05-2010 take 1 tablet by elio th once daily ASPIRIN 325 MG TABS One tablet by mouth daily ASPIRIN [id number] Janny Huffman Start: 06-05-2010 take 1 tablet by elio th once daily ASPIRIN 81 MG TABS One tablet by mouth daily ASPIRIN [id number] Reggie Olguin MD Comment on above: Take 1 tablet by elio th once daily. biotin 5 mg oral tablet (20 sources) Start: 08-06-2016 End: 08-01-2024 take 1 tablet by mouth once daily Biotin 5 MG tablet Discontinued 5 mg PO DAILY August 06, 2016 12:00am August 01, 2024 11:57am Start: 06-13-2015 take 1 tablet by elio th once daily BIOTIN FORTE TABS One tablet by mouth daily BIOTIN TABS [id number] Reggie Olguin MD Start: 06-13-2015 take 1 tablet by elio th once daily BIOTIN FORTE TABS One tablet by mouth daily BIOTIN TABS [id number] Reggie Olguin MD BIOTIN ORAL Take by mouth. Active BIOTIN ORAL Take by mouth. 0 Active Comment on above: Take by mouth. Calcium Carbonate / Vitamin D (20 sources) Start: 06-05-2010 take 1 tablet by mouth once daily CALCIUM CARBONATE-VITAMIN D 600-125 MG-UNIT TABS One tablet by mouth daily CALCIUM CARBONATE-VITAMIN D [id number] Janny Huffman Start: 06-05-2010 End: 12-17-2014 take 1 tablet by mouth once daily CALCIUM CARBONATE-VITAMIN D 600-125 MG-UNIT TABS One tablet by mouth daily CALCIUM CARBONATE-VITAMIN D [id number] Dana Blake PA-C Start: 06-05-2010 take 1 tablet by elio th once daily CALCIUM CARBONATE-VITAMIN D 600-125 MG-UNIT TABS One tablet by mouth daily CALCIUM CARBONATE-VITAMIN D [id number] Janny Huffman Start: 06-05-2010 End: 12-17-2014 take 1 tablet by mouth once daily CALCIUM CARBONATE-VITAMIN D 600-125 MG-UNIT TABS One tablet by mouth daily CALCIUM CARBONATE-VITAMIN D [id number] Dana Blake PA-C citalopram 20 mg oral tablet (20 sources) Serotonin Reuptake Inhibitor Start: 12-03-2020 End: 02-11-2022 take 1 tablet by mouth once daily Citalopram (Celexa) 20 mg tablet Discontinued 20 mg PO DAILY February 12, 2021 1:00am February 11, 2022 12:46pm Start: 10-07-2010 End: 10-24-2013 take 1 tablet by mouth once daily CELEXA 20 MG TABS One tablet by mouth daily CITALOPRAM HYDROBROMIDE [id number] Dana Blake PA-C Comment on above: Take 1 tablet by elio th once daily. clobetasol propionate 0.0005 mg/mg topical ointment (20 sources) Corticosteroid Start: 02-11-2022 End: 08-01-2024 Clobetasol 0.05 % ointment Discontinued 1 NMA TOPICAL DAILY February 11, 2022 1:00am August 01, 2024 11:57am Start: 06-08-2021 clobetasol (TE MOVATE) 0.05 % ointment 06/08/2021 Active Start: 06-08-2021 End: 02-24-2024 Clobetasol Propionate 0.05 % sham 06/08/2021 02/24/2024 Discontinued clopidogrel 75 mg oral tablet (20 sources) [id number] Platelet Inhibitor Start: 07-30-2016 End: 02-16-2017 take 1 tablet by mouth once daily Clopidogrel 75 MG tablet Discontinued 75 mg PO DAILY August 06, 2016 12:00am February 16, 2017 3:09pm cyclobenzaprine hydrochloride 10 mg oral tablet (20 sources) Muscle Relaxant Start: 08-06-2016 End: 12-06-2017 take 1 tablet by mouth three times daily as needed for pain Cyclobenzaprine 10 MG tablet Discontinued 10 mg PO THREE TIMES A DAY as needed for Pain August 06, 2016 12:00am December 06, 2017 3:27pm Start: 06-13-2015 FLEXERIL 10 MG TABS as needed CYCLOBENZAPRINE HCL Reggie Olguin MD Start: 06-13-2015 FLEXERIL 10 MG TABS as needed CYCLOBENZAPRINE HCL Reggie Olguin MD 24 hr dilTIAZem hydrochloride 120 mg extended release oral capsule (20 sources) Calcium Channel Lisa Start: 03-15-2018 End: 12-05-2018 take 1 capsule by mouth once daily, then take 1 capsule by mouth every twenty-four hours Diltiazem Hcl (Cardizem Cd) 120 mg capsule,extended release 24hr Discontinued 120 mg PO DAILY 90 April 10, 2018 6:02pm December 05, 2018 2:30pm Start: 06-05-2010 End: 12-06-2017 take 1 capsule by mouth once daily Diltiazem Hcl 360 MG capsule,extended release 24hr Discontinued 360 mg PO DAILY August 06, 2016 12:00am December 06, 2017 3:50pm docusate sodium 100 mg oral capsule (14 sources) Start: 02-16-2017 End: 12-06-2017 take 1 capsule by mouth twice daily Docusate Sodium 100 mg capsule Discontinued 100 mg PO TWICE A DAY February 16, 2017 1:00am December 06, 2017 3:26pm Start: 01-12-2017 take 1 tablet by elio th twice daily DOCUSATE SODIUM 100 MG TABS One tablet by mouth twice daily while taking pain medications DOCUSATE SODIUM [id number] Coni Webb RN Start: 01-12-2017 take 1 tablet by elio th twice daily DOCUSATE SODIUM 100 MG TABS One tablet by mouth twice daily while taking pain medications DOCUSATE SODIUM [id number] Coni Webb RN ezetimibe 10 mg oral tablet (20 sources) Dietary Cholesterol Absorption Inhibitor Start: 02-14-2023 End: 04-12-2024 take 1 tablet by mouth once daily Ezetimibe (Zetia) 10 mg tablet Discontinued 10 mg PO DAILY 90 March 24, 2023 9:51am April 12, 2024 5:07pm Fish Oils (20 sources) Start: 06-05-2010 End: 12-17-2014 take 1 tablet by mouth once daily FISH OIL CAPS One tablet by mouth daily OMEGA-3 FATTY ACIDS CAPS [id number] Dana Blake PA-C Start: 06-05-2010 take 1 tablet by elio th once daily FISH OIL CAPS One tablet by mouth daily OMEGA-3 FATTY ACIDS CAPS [id number] Janny Huffman Start: 06-05-2010 take 1 tablet by elio th once daily FISH OIL CAPS One tablet by mouth daily OMEGA-3 FATTY ACIDS CAPS [id number] Janny Huffman Start: 06-05-2010 End: 12-17-2014 take 1 tablet by mouth once daily FISH OIL CAPS One tablet by mouth daily OMEGA-3 FATTY ACIDS CAPS [id number] Dana Blake PA-C charlie root (5 sources) End: 12-30-2021 charlie root (CHARLIE EXTRACT ORAL) Take by mouth. 0 12/30/2021 Discontinued charlie root (GIN OLIVIA EXTRACT ORAL) Take by mouth. 0 Active Comment on above: Take by mouth. glucosamine HCl/chondroitin mccarthy (GLUCOSAMINE-CHONDROITIN ORAL) (20 sources) End: 02-24-2024 glucosamine HCl/chondroitin mccarthy (GLUCOSAMINE-CHONDROITIN ORAL) Take by mouth once daily. 02/24/2024 Discontinued glucosamine HCl/ chondroitin mccarthy (GLUCOSAMINE-CHONDROITIN ORAL) Take by mouth once daily. Active glucosamine HCl/ chondroitin mccarthy (GLUCOSAMINE-CHONDROITIN ORAL) Take by mouth once daily. 0 Active Comment on above: Take by mouth once d aily. hydroCHLOROthiazide 25 mg / losartan potassium 100 mg oral tablet (20 sources) Thiazide Diuretic, Angiotensin 2 Receptor Lisa Start: 017 End: 017 take 1 tablet by mouth once daily Losartan-Hydrochlor othiazide Discontinued 1 TABLET PO DAILY August 06, 2016 12:00am February 16, 2017 3:09pm Start: 06-05-2010 End: 02-16-2017 Losartan-Hydrochlorothiazide 1 TAB tablet Discontinued 1 {tbl} PO DAILY August 06, 2016 12:00am February 16, 2017 3:09pm ibuprofen 200 mg oral tablet (20 sources) Nonsteroidal Anti-inflammatory Drug Start: 02-11-2022 End: 02-14-2023 take 1 tablet by mouth three times daily Ibuprofen 200 mg tablet Discontinued 200 mg PO THREE TIMES A DAY February 11, 2022 1:00am February 14, 2023 11:00am Start: 08-06-2016 End: 05-13-2017 take 1 tablet by mouth once daily Ibuprofen 200 MG tablet Discontinued 200 mg PO DAILY August 06, 2016 12:00am May 13, 2017 3:28pm Start: 06-05-2010 End: 01-12-2017 take 4 tablets by mouth once daily as needed for pain IBUPROFEN 200 MG TABS 4 po daily, as needed pain IBUPROFEN [id number] Janny Huffman 24 hr isosorbide mononitrate 60 mg extended release oral tablet (20 sources) Nitrate Vasodilator Start: 06-05-2010 End: 02-16-2017 take 1 tablet by mouth once daily, then take 1 tablet by mouth every twenty-four hours Isosorbide Mononitrate 60 MG tablet extended release 24 hr Discontinued 60 mg PO DAILY August 06, 2016 12:00am February 16, 2017 3:10pm lisinopril 40 mg oral tablet (20 sources) Angiotensin Converting Enzyme Inhibitor Start: 12-06-2017 End: 01-26-2024 take 1 tablet by mouth once daily Lisinopril 40 mg tablet Discontinued 40 mg PO DAILY 90 February 05, 2020 10:51am February 12, 2021 11:39am Start: 04-20-2017 End: 12-06-2017 take 1 tablet by mouth once daily Lisinopril 10 mg tablet Discontinued 10 mg PO daily 90 May 30, 2017 1:15pm December 06, 2017 3:51pm Start: 04-11-2017 End: 04-20-2017 take 1 tablet by mouth once daily Lisinopril 5 mg tablet Discontinued 5 mg PO daily 30 3 April 11, 2017 1:00am April 20, 2017 3:21pm Comment on above: Take 1 tablet by elio once daily. magnesium oxide 400 mg oral tablet (20 sources) Start: 07-17-2019 End: 02-14-2023 take 1 tablet by mouth at bedtime Magnesium Oxide 400 mg magnesium tablet Discontinued 400 mg PO AT BEDTIME July 17, 2019 12:00am February 14, 2023 11:00am Start: 09-07-2011 End: 04-12-2013 take 1 tablet by mouth twice daily MAG-OXIDE 400 MG TABS One tablet by mouth twice daily MAGNESIUM OXIDE [id number] Reggie Olguin MD melatonin 3 mg oral tablet (20 sources) Start: 12-16-2015 End: 07-02-2016 take 1 tablet by mouth at bedtime as needed MELATONIN 3 MG TABS One tablet by mouth at bedtime. As needed MELATONIN [id number] Bob Lilian Billy WOLFFP-Enmanuel meloxicam 15 mg oral tablet (10 sources) Nonsteroidal Anti-inflammatory Drug Start: 12-05-2018 End: 07-17-2019 Meloxicam 15 mg tablet Discontinued PO 30 0 December 05, 2018 12:00am July 17, 2019 9:58am Start: 12-05-2018 End: 07-17-2019 Meloxicam Discontinued PO 30 December 05, 2018 12:00am July 17, 2019 9:58am metFORMIN hydrochloride 500 mg oral tablet (20 sources) Biguanide Start: 06-05-2010 End: 10-24-2013 METFORMIN HCL 500 MG TABS 1 tablet by mouth 2 X weekly METFORMIN HCL [id number] Janny Huffman metoprolol tartrate 25 mg oral tablet (20 sources) beta-Adrenergic Lisa Start: 03-21-2017 End: 03-01-2018 take 1 tablet by mouth twice daily Metoprolol Tartrate 25 mg tablet Discontinued 25 mg PO TWICE A DAY 180 April 11, 2017 6:39pm March 01, 2018 2:16pm Start: 02-16-2017 End: 03-21-2017 Metoprolol Tartrate 25 mg ta blet Discontinued 12.5 mg PO TWICE A DAY 90 February 16, 2017 3:11pm March 21, 2017 3:53pm Start: 02-16-2017 End: 03-21-2017 take 12.5 mg by mouth twice daily Metoprolol Tartrate Discontinued 12.5 MG PO TWICE A DAY February 16, 2017 3:11pm March 21, 2017 3:53pm Start: 01-12-2017 take 1 tablet by elio twice daily METOPROLOL TARTRATE 25 MG TABS One half tablet by mouth twice daily METOPROLOL TARTRATE [id number] Coni Webb RN Start: 01-12-2017 METOPROLOL TAR TRATE 25 MG TABS One half tablet by mouth twice daily METOPROLOL TARTRATE [id number] Coni Webb RN MULTIPLE VITAMINS-MINERALS (1 source) Start: 01-12-2017 take 1 tablet by mouth once daily MULTIVITAMIN ADULT TABS One tablet by mouth daily MULTIPLE VITAMINS-MINERALS [id number] Coni Webb RN MULTIPLE VITAMINS-MINERALS (3 sources) Start: 01-12-2017 take 1 tablet by mouth once daily MULTIVITAMIN ADULT TABS One tablet by mouth daily MULTIPLE VITAMINS-MINERALS [id number] Coni Webb RN Multivitamin tablet (7 sources) Start: 02-16-2017 End: 09-05-2024 Multivitamin tablet Discontinued 1 {tbl} PO DAILY February 16, 2017 1:00am September 05, 2024 5:21pm vitamin Start: 02-16-2017 Multivitamin t ablet Active 1 {tbl} PO DAILY February 16, 2017 1:00am Start: 02-16-2017 Multivitamin t ablet Active 1 {tbl} PO daily February 16, 2017 1:00am [place] 1-Vqb-Asl-Fish-Turmer[place] c (3 sources) Start: 02-12-2021 End: 02-11-2022 [place] 0-Voe-Kxy-Fish-Turmeri c Discontinued CAP PO February 12, 2021 1:00am February 11, 2022 12:47pm Start: 02-12-2021 End: 02-11-2022 [place] 0-Vyz-Ckp-Fish-Turmeri c Discontinued CAP PO February 12, 2021 12:00am February 11, 2022 11:47am [place] 9-Gnx-Hym-Fish-Turmeric 417 mg-120 mg- 276 mg-600 mg capsule (7 sources) Start: 02-12-2021 End: 02-11-2022 [place] 0-Vte-Qaj-Fish-Turmeric 417 mg-120 mg- 276 mg-600 mg capsule Discontinued NMA PO February 12, 2021 1:00am February 11, 2022 12:47pm OMEGA-3 FATTY ACIDS CPDR (1 source) Start: 06-13-2015 take 1 tablet by mouth once daily OMEGA 3 CPDR One tablet by mouth daily OMEGA-3 FATTY ACIDS CPDR [id number] Reggie Olguin MD OMEGA-3 FATTY ACIDS CPDR (18 sources) Start: 06-13-2015 take 1 tablet by mouth once daily OMEGA 3 CPDR One tablet by mouth daily OMEGA-3 FATTY ACIDS CPDR [id number] Reggie Olguin MD potassium gluconate 2.5 meq oral tablet (6 sources) Start: 07-05-2024 End: 07-05-2024 take 1 tablet by mouth once daily Potassium Gluconate 595 mg (99 mg) tablet Discontinued 595 mg PO daily July 05, 2024 12:00am July 05, 2024 1:35pm SITagliptin 100 mg oral tablet (20 sources) Dipeptidyl Peptidase 4 Inhibitor Start: 05-11-2017 End: 12-06-2017 take 1 tablet by mouth once daily Sitagliptin Phosphate 100 mg tablet Discontinued 100 mg PO daily May 11, 2017 1:00am December 06, 2017 3:27pm Start: 07-02-2016 End: 04-11-2017 take 1 tablet by mouth once daily Sitagliptin Phosphate 100 MG tablet Discontinued 100 mg PO DAILY August 06, 2016 12:00am April 11, 2017 6:36pm Start: 10-07-2010 End: 06-13-2015 take 1 tablet by mouth once daily JANUVIA 100 MG TABS One tablet by mouth daily SITAGLIPTIN PHOSPHATE [id number] Reggie Olguin MD ubidecarenone 30 mg oral cap cal (20 sources) Start: 04-17-2024 End: 08-01-2024 Coenzyme Q10 (Co Q-10) 30 mg capsule Discontinued 30 mg PO daily April 17, 2024 1:00am August 01, 2024 11:57am Start: 06-05-2010 take 1 tablet by elio once daily CO-ENZYME Q-10 100 MG CAPS One tablet by mouth daily COENZYME Q10 [id number] Janny Huffman vitamin d 1000 unt oral tablet (19 sources) Start: 06-05-2010 take 1 tablet by mouth once daily VITAMIN D 1000 UNIT TABS One tablet by mouth daily CHOLECALCIFEROL [id number] Janny Huffman Start: 06-05-2010 take 1 tablet by elio th once daily VITAMIN D 1000 UNIT TABS One tablet by mouth daily CHOLECALCIFEROL [id number] Janny Huffman Start: 06-05-2010 take 1 tablet by elio th once daily VITAMIN D 1000 UNIT TABS One tablet by mouth daily CHOLECALCIFEROL [id number] Janny Huffman Zinc (20 sources) Start: 04-02-2020 End: 10-21-2023 take 1 tablet by mouth once daily Zinc 50 mg tab Take 1 tablet by mouth once daily. 0 04/02/2020 10/21/2023 Discontinued Start: 04-02-2020 take 1 tablet by elio th once daily Zinc 50 mg tab Take 1 tablet by mouth once daily. 0 04/02/2020 Active ZINC ORAL Take 1 Dose by mouth two times a day. 1 gummi two times daily Active ZINC ORAL Take 1 Dose by mouth two times a day. 1 gummi two times daily 0 Active Comment on above: Take 1 tablet by elio th once daily. Problems Active Problems Problem Classification Problem Date Documented Date Episodic/Chronic Acute and unspecified renal failure (2 sources) Prerenal azotemia; Translations: [Unspecified kidney failure] 09-05-2024 Chronic Acute and unspecified renal failure (2 sources) Acute renal failure syndrome; Translations: [Acute kidney failure, unspecified] 09-05-2024 Episodic Anxiety disorders (20 sources) Mixed anxiety and depressive disorder; Translations: [Anxiety disorder, unspecified] Onset: 01-16-2021 01-16-2021 Chronic Asthma (20 sources) Asthma; Translations: [Unspecified asthma, uncomplicated] Onset: 02-10-2017 02-10-2017 Chronic Chronic kidney disease (20 sources) Chronic kidney disease stage 3A ; Translations: [Stage 3a chronic kidney disease] Onset: 01-16-2021 Resolved: 06-21-2022 01-16-2021 Chronic Conduction disorders (4 sources) First degree atrioventricular block; Translations: [Atrioventricular block, first degree] 09-05-2024 Chronic Congestive heart failure; nonhypertensive (1 source) Heart failure, unspecified; Translations: [Acute on chronic congestive heart failure, unspecified heart failure type (HCC)] Onset: 08-20-2024 Chronic Coronary atherosclerosis and other heart disease (20 sources) Coronary atherosclerosis; Translations: [Coronary arteriosclerosis] Onset: 02-15-2002 Resolved: 06-12-2015 07-02-2016 Chronic Deficiency and other anemia (1 source) Anemia, unspecified; Translations: [Anemia, unspecified type] Onset: 08-20-2024 Episodic Diabetes mellitus without complication (20 sources) Diabetes mellitus; Translations: [Type 2 diabetes mellitus without complications] Onset: 10-24-2013 10-24-2013 Chronic Disorders of lipid metabolism (20 sources) Hyperlipidemia; Translations: [Hyperlipidemia, unspecified] Onset: 02-15-2002 Resolved: 10-09-2009 06-05-2010 Chronic Essential hypertension (20 sources) Hypertensive disorder; Translations: [Essential (primary) hypertension] Onset: 06-05-2010 06-05-2010 Chronic Fluid and electrolyte disorders (20 sources) Hypokalemia; Translations: [Hypokalemia] Onset: 08-03-2016 08-03-2016 Episodic Genitourinary symptoms and ill-defined conditions (20 sources) Female stress incontinence; Translations: [Stress incontinence (female) (male)] Onset: 10-22-2008 10-22-2008 Chronic Genitourinary symptoms and ill-defined conditions (1 source) Wolfgang hematuria; Translations: [Gross hematuria] Episodic Heart valve disorders (20 sources) Aortic valve disorder; Translations: [Nonrheumatic aortic (valve) insufficiency] Onset: 06-05-2010 06-05-2010 Chronic Comment on above: 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 12/22/2016 Hypertension with complications and secondary hypertension (20 sources) Hypertensive renal disease; Translations: [Hypertensive chronic kidney disease with stage 1 through stage 4 chronic kidney disease, or unspecified chronic kidney disease] Onset: 07-15-2021 Resolved: 06-21-2022 07-15-2021 Chronic Malaise and fatigue (1 source) Fatigue; Translations: [Chronic fatigue, unspecified] 06-10-2023 Chronic Menopausal disorders (20 sources) Menopausal symptom; Translations: [Menopausal and female climacteric states] Onset: 10-22-2008 10-22-2008 Chronic Nutritional deficiencies (20 sources) Vitamin D deficiency; Translations: [Vitamin D deficiency, unspecified] Onset: 08-23-2020 08-23-2020 Chronic Osteoporosis (1 source) Senile osteoporosis; Translations: [Age-related osteoporosis without current pathological fracture] 02-24-2024 Chronic Other aftercare (1 source) Other shelter (current) drug therapy; Translations: [Encounter for long-term current use of medication] Onset: 08-20-2024 Episodic Other and ill-defined heart disease (1 source) Diastolic dysfunction; Translations: [Other ill-defined heart diseases] 07-19-2024 Chronic Other and ill-defined heart disease (1 source) Other ill-defined heart diseases; Translations: [Diastolic dysfunction] Onset: 07-19-2024 Chronic Other bone disease and musculoskeletal deformities (20 sources) Disorder of skeletal system; Translations: [Disorder of bone, unspecified] 12-17-2004 Episodic Other bone disease and musculoskeletal deformities (2 sources) Osteopenia; Translations: [Other specified disorders of bone density and structure, other site] 10-21-2023 Episodic Other circulatory disease (2 sources) Low blood pressure; Translations: [Hypotension, unspecified] 09-05-2024 Episodic Other lower respiratory disease (20 sources) H/O: asthma; Translations: [Personal history of other diseases of the respiratory system] 09-04-2019 Episodic Other lower respiratory disease (20 sources) Dyspnea; Translations: [Shortness of breath] 02-13-2020 Episodic Other lower respiratory disease (1 source) Wheezing; Translations: [Wheezing] 05-28-2024 Episodic Other lower respiratory disease (3 sources) Shortness of breath; Translations: [Shortness of breath] Onset: 07-19-2024 Episodic Other lower respiratory disease (1 source) Hypoxemia; Translations: [Hypoxia] Onset: 08-20-2024 Episodic Other nutritional; endocrine; and metabolic disorders (1 source) Overweight; Translations: [Overweight] Onset: 07-02-2016 07-02-2016 Chronic Other nutritional; endocrine; and metabolic disorders (20 sources) Body mass index (BMI) 36.0-36.9, adult; Translations: [Body mass index (BMI) 34.0-34.9, adult] Onset: 04-12-2013 Resolved: 06-12-2015 12-16-2015 Chronic Other nutritional; endocrine; and metabolic disorders (18 sources) Body mass index (BMI) 37.0-37.9, adult; Translations: [Body Mass Index 37.0-37.9, adult] Onset: 12-17-2014 03-29-2016 Chronic Other nutritional; endocrine; and metabolic disorders (20 sources) Body mass index (BMI) 39.0-39.9, adult; Translations: [Body Mass Index 39.0-39.9, adult] Onset: 04-12-2013 Resolved: 06-12-2015 06-12-2015 Chronic Other nutritional; endocrine; and metabolic disorders (18 sources) Body mass index (BMI) 34.0-34.9, adult; Translations: [Body Mass Index 34.0-34.9, adult] Onset: 12-17-2014 12-17-2014 Chronic Other nutritional; endocrine; and metabolic disorders (18 sources) Body mass index (BMI) 38.0-38.9, adult; Translations: [Body Mass Index 38.0-38.9, adult] Onset: 04-12-2013 04-12-2013 Chronic Other nutritional; endocrine; and metabolic disorders (20 sources) Severe obesity; Translations: [Morbid (severe) obesity due to excess calories] 08-23-2020 Chronic Other nutritional; endocrine; and metabolic disorders (20 sources) Metabolic syndrome X; Translations: [Metabolic syndrome] Onset: 06-28-2006 03-02-2021 Chronic Other nutritional; endocrine; and metabolic disorders (6 sources) Hypercalcemia; Translations: [Hypercalcemia] Chronic Other nutritional; endocrine; and metabolic disorders (1 source) Morbid obesity; Translations: [Morbid (severe) obesity due to excess calories] 07-19-2024 Chronic Other nutritional; endocrine; and metabolic disorders (1 source) Morbid (severe) obesity due to excess calories; Translations: [Morbid obesity (HCC)] Onset: 07-19-2024 Chronic Other nutritional; endocrine; and metabolic disorders (1 source) Body mass index (BMI) 40.0-44.9, adult; Translations: [Class 3 severe obesity due to excess calories with body mass index (BMI) of 40.0 to 44.9 in adult] Onset: 08-23-2020 Chronic Other nutritional; endocrine; and metabolic disorders (1 source) Hypercalcemia; Translations: [Hypercalcemia] Onset: 10-10-2023 Chronic Other upper respiratory disease (20 sources) Allergic rhinitis; Translations: [Allergic rhinitis, unspecified] 10-09-2009 Chronic Other upper respiratory disease (20 sources) Other diseases of pharynx; Translations: [Other diseases of pharynx, not elsewhere classified] 12-17-2004 Episodic Other upper respiratory infections (1 source) Acute sinusitis; Translations: [Acute sinusitis, unspecified] Episodic Pneumonia (except that caused by tuberculosis or sexually transmitted disease) (20 sources) Community acquired pneumonia; Translations: [Pneumonia, unspecified organism] Onset: 10-30-2009 Resolved: 05-20-2015 05-20-2015 Episodic Residual codes; unclassified (20 sources) Dyssomnia; Translations: [Parasomnia, unspecified] Onset: 06-05-2010 06-05-2010 Chronic Residual codes; unclassified (20 sources) Obstructive sleep apnea syndrome; Translations: [Obstructive sleep apnea (adult) (pediatric)] Onset: 02-11-2014 02-11-2014 Chronic Residual codes; unclassified (1 source) Obstructive sleep apnea (adult) (pediatric); Translations: [OPHELIA (obstructive sleep apnea)] Onset: 10-24-2023 Chronic Residual codes; unclassified (2 sources) Postmenopausal state; Translations: [Asymptomatic menopausal state] 10-18-2023 Episodic Residual codes; unclassified (2 sources) Bilateral lower limb edema; Translations: [Localized edema] 02-24-2024 Episodic Syncope (2 sources) Syncope and collapse; Translations: [Syncope and collapse] 09-05-2024 Episodic Thyroid disorders (20 sources) Hypothyroidism; Translations: [Hypothyroidism, unspecified] Onset: 01-17-2015 01-17-2015 Chronic Unclassified (1 source) Long-term drug therapy; Translations: [Other terminal superintendent (current) drug therapy] Onset: 06-05-2010 06-05-2010 Unclassified (1 source) Replacement of aortic valve ; 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] Onset: 12-24-2016 12-24-2016 Unclassified (1 source) Class 3 severe obesity due to excess calories with body mass index (BMI) of 40.0 to 44.9 in adult; Translations: [Class 3 severe obesity due to excess calories with body mass index (BMI) of 40.0 to 44.9 in adult] Onset: 08-23-2020 Past or Other Problems Problem Classification Problem Date Documented Da te Episodic/Chronic Complications of surgical procedures or medical care (20 sources) History of parathyroidectomy; Translations: [Postprocedural hypoparathyroidism] Onset: 05-24-2016 Resolved: 10-21-2023 05-24-2016 Chronic Conditions associated with dizziness or vertigo (19 sources) Dizziness and giddiness; Translations: [Dizziness and giddiness] Onset: 07-02-2016 07-02-2016 Episodic Diabetes mellitus without complication (20 sources) Impaired fasting glycemia; Translations: [Impaired fasting glucose] Onset: 08-23-2020 08-23-2020 Episodic Malaise and fatigue (19 sources) Fatigue; Translations: [Other fatigue] Onset: 06-05-2010 06-05-2010 Episodic Nonspecific chest pain (20 sources) Chest pain, unspecified; Translations: [Chest discomfort] Onset: 06-05-2010 Resolved: 06-12-2015 06-12-2015 Episodic Other aftercare (18 sources) Long-term drug therapy; Translations: [Other shelter (current) drug therapy] Onset: 06-05-2010 06-05-2010 Episodic Other and unspecified benign neoplasm (20 sources) Benign neoplasm of colon; Translations: [Benign neoplasm of colon, unspecified] Onset: 06-15-2006 10-30-2009 Episodic Other and unspecified benign neoplasm (20 sources) History of polyp of colon; Translations: [Personal history of colonic polyps] Onset: 03-27-2010 03-27-2010 Episodic Other and unspecified benign neoplasm (20 sources) Melanocytic nevus; Translations: [Melanocytic nevi, unspecified] Onset: 10-22-2008 Resolved: 11-22-2008 11-22-2008 Episodic Other bone disease and musculoskeletal deformities (1 source) Other specified disorders of bone density and structure, other site; Translations: [Osteopenia of spine] Onset: 12-05-2023 Episodic Other circulatory disease (19 sources) Carotid bruit; Translations: [Other specified symptoms and signs involving the circulatory and respiratory systems] Onset: 06-05-2010 06-05-2010 Episodic Other circulatory disease (20 sources) Bruit; Translations: [Other specified symptoms and signs involving the circulatory and respiratory systems] Onset: 10-28-2010 10-28-2010 Episodic Other lower respiratory disease (20 sources) Dyspnea on exertion; Translations: [Other forms of dyspnea] Onset: 12-16-2015 12-16-2015 Episodic Other lower respiratory disease (20 sources) Restrictive lung disease; Translations: [Other disorders of lung] Onset: 08-23-2020 08-23-2020 Episodic Other lower respiratory disease (1 source) Other forms of dyspnea; Translations: [DONALD (dyspnea on exertion)] Onset: 08-23-2020 Episodic Other lower respiratory disease (1 source) Personal history of other diseases of the respiratory system; Translations: [History of asthma] Onset: 09-04-2019 Episodic Other lower respiratory disease (1 source) Other disorders of lung; Translations: [Restrictive lung disease] Onset: 08-23-2020 Episodic Other non-traumatic joint disorders (20 sources) Pain in left knee; Translations: [Pain in joint, lower leg] Onset: 06-19-2015 06-19-2015 Episodic Other non-traumatic joint disorders (20 sources) Pain in lower limb; Translations: [Pain in unspecified knee] Onset: 10-22-2008 Resolved: 10-30-2009 10-30-2009 Episodic Other nutritional; endocrine; and metabolic disorders (18 sources) Overweight; Translations: [Overweight] Onset: 07-02-2016 07-02-2016 Episodic Other nutritional; endocrine; and metabolic disorders (20 sources) History of primary hyperparathyroidism; Translations: [Personal history of other endocrine, nutritional and metabolic disease] Onset: 01-15-2002 07-03-2018 Episodic Other screening for suspected conditions (not mental disorders or infectious disease) (20 sources) Patient encounter status; Translations: [Encounter for screening mammogram for malignant neoplasm of breast] Onset: 08-23-2020 Episodic Residual codes; unclassified (20 sources) FH: Hypertension; Translations: [Dyssomnia] Onset: 06-05-2010 12-17-2014 Episodic Residual codes; unclassified (20 sources) History of parathyroidectomy; Translations: [Other specified postprocedural states] Onset: 05-24-2016 05-24-2016 Episodic Residual codes; unclassified (1 source) Asymptomatic menopausal state; Translations: [Asymptomatic postmenopausal status] Onset: 12-05-2023 Episodic Residual codes; unclassified (1 source) Other specified postprocedural states; Translations: [S/P subtotal parathyroidectomy] Onset: 05-24-2016 Episodic Residual codes; unclassified (1 source) Acquired absence of other organs; Translations: [S/P subtotal parathyroidectomy] Onset: 05-24-2016 Episodic Spondylosis; intervertebral disc disorders; other back problems (20 sources) Lumbago with sciatica; Translations: [Lumbago with sciatica, right side] Onset: 06-19-2015 06-19-2015 Episodic Results Test Name Value Interpretation Reference Range Facility Absolute lymphocyte countOrd ered By: Ramin Berman on 09-05-2024 Lymphocytes Auto (Unsp spec) [#/Vol] 1.23 10*3/uL 0.83-4.51 [facility] Absolute neutrophil countOrd ered By: Ramin Berman on 09-05-2024 Neutrophils (Bld) [#/Vol] 5.5 10*3/uL 2.0-7.7 [facility] Anion gap in Serum or Plasma Ordered By: Ramin Berman on 09-05-2024 Anion gap [Moles/Vol] 10 mmol/L 5-15 [facility] Automated lymphocyte count a s percentage of total leukocytesOrdered By: Ramin Berman on 09-05-2024 Lymphocytes/100 WBC Auto (Unsp spec) 16.3 % Low 19-41 [facility] BUN/creatinine ratioOrdered By: Raminalexander Berman on 09-05-2024 Urea nitrogen/Creatinine [Mass ratio] 30.7 mg/mg High 10-20 [facility] Basophil percentageOrdered B y: Ramin Berman on 09-05-2024 Basophils/100 WBC (Bld) 0.3 % 0-1 [facility] Carbon dioxide, total [Moles /volume] in Central venous bloodOrdered By: Ramin Berman on 09-05-2024 CO2 [Moles/Vol] 17.0 mmol/L Low 21.0-32.0 [facility] Chloride assayOrdered By: Pia Berman on 09-05-2024 Chloride [Moles/Vol] 103 mmol/L 98-108 [facility] Eosinophil percentageOrdered By: Ramin Berman on 09-05-2024 Eosinophils/100 WBC (Bld) 0.7 % 0-5 [facility] Erythrocyte distribution wid th ratioOrdered By: Ramin Berman on 09-05-2024 Erythrocyte distribution width (RBC) [Ratio] 15.1 % High 11.6-14.6 [facility] Erythrocyte distribution wid th standard deviationOrdered By: Ramin Berman on 09-05-2024 Erythrocyte distribution width (RBC) [Ratio] 47.2 fl High 35.1-43.9 [facility] Glomerular filtration rate ( GFR) estimation/1.73 sq m using serum, plasma, or whole bOrdered By: Ramin Berman on 09-05-2024 GFR/1.73 sq M.predicted among non-blacks MDRD (S/P/Bld) [Vol rate/Area] 13 mL/min/{1.73_m2} Low >60 [facility] Comment on above: mL/min/1.73m2 CKD-EP I Creatinine Equation (2020) [facility] de[facility]dered By: Ramin Berman on 09-05-2024 Glucose [Mass/Vol] 118 mg/dL High 74-106 [facility] Comment on above: MANAGEMENT OF PATIEN T CARE PER NURSING PROTOCOL Hematocrit Auto (Bld) [Volum e fraction]Ordered By: Ramin Berman on 09-05-2024 Hematocrit (Bld) [Volume fraction] 40.7 % 37-47 [facility] Hemoglobin measurementOrdere d By: Ramin Berman on 09-05-2024 Hemoglobin (Bld) [Mass/Vol] 13.2 g/dL 12.0-15.0 [facility] Immature granulocytes/100 WB C Auto (Bld)Ordered By: Ramin Berman on 09-05-2024 Immature granulocytes/100 WBC (Bld) 0.400 % 0.0-0.9 [facility] Comment on above: IG% - Immature Granu locytes (promyelocytes, myelocytes and metamyelocytes) > 1% indicates that a LEFT SHIFT is Present. MCV (mean corpuscular volume ) determinationOrdered By: Ramin Berman on 09-05-2024 MCV (RBC) [Entitic vol] 85.0 fL 81-99 [facility] Mean corpuscular hemoglobin (MCH) determinationOrdered By: Ramin Berman on 09-05-2024 MCH (RBC) [Entitic mass] 27.6 pg 27.0-32.0 [facility] Mean corpuscular hemoglobin concentration (MCHC) determinationOrdered By: Ramin Berman on 09-05-2024 MCHC (RBC) [Mass/Vol] 32.4 g/dL 32-36 [facility] Mean platelet volume determi nationOrdered By: Ramin Berman on 09-05-2024 Platelet mean volume (Bld) [Entitic vol] 13.0 fL High 6.2-12.0 [facility] Monocyte percentageOrdered B y: Raminalexander Berman on 09-05-2024 Monocytes/100 WBC (Bld) 9.7 % 0-10 [facility] Neutrophil percentageOrdered By: Raminalexander Berman on 09-05-2024 Neutrophils/100 WBC (Bld) 72.6 % High 47-70 [facility] Nucleated red blood cell per centageOrdered By: Raminalexander Berman on 09-05-2024 Nucleated RBC/100 WBC (Bld) [Ratio] 0 % 0-5 [facility] Platelet countOrdered By: [facility] Berman on 09-05-2024 Platelets (Bld) [#/Vol] 134 10*3/uL Low 150-450 [facility] Potassium measurement (mass/ volume)Ordered By: Raminalexander Berman on 09-05-2024 Potassium (Unsp spec) [Mass/Vol] 8.5 mmol/L High 3.3-5.1 [facility] Comment on above: Critical Result(s) C alled at: 09/05/2024-05:32 by: Ghulam Ko to Breanna Caldwell. Results read back by same. RBC Auto (Bld) [#/Vol]Ordere d By: Ramin Berman on 09-05-2024 RBC (Bld) [#/Vol] 4.79 10*6/uL 4.2-5.4 [facility] Serum creatinine measurement (mass/volume)Ordered By: Ramin Berman on 09-05-2024 Creatinine [Mass/Vol] 3.52 mg/dL High 0.70-1.20 [facility] Serum glucose measurement (m ass/volume)Ordered By: Ramin Berman on 09-05-2024 Glucose [Mass/Vol] 121 mg/dL High 70-99 [facility] Serum or plasma albumin piedad urement (mass/volume)Ordered By: Ramin Breman on 09-05-2024 Albumin [Mass/Vol] 4.4 g/dL 3.4-4.8 [facility] Serum or plasma calcium piedad urement (mass/volume)Ordered By: Ramin Berman on 09-05-2024 Calcium [Mass/Vol] 11.5 mg/dL High 7.6-11.0 [facility] Serum or plasma urea nitroge n measurement (mass/volume)Ordered By: Ramin Berman on 09-05-2024 Urea nitrogen [Mass/Vol] 108 mg/dL High 4-19 [facility] Comment on above: Critical Result(s) C alled at: 09/05/2024-05:32 by: Ghulam Ko to Breanna Caldwell. Results read back by same. Sodium levelOrdered By: Ramin Berman on 09-05-2024 Sodium [Moles/Vol] 130 mmol/L Low 133-145 [facility] White blood cell (WBC) count Ordered By: Ramin Berman on 09-05-2024 WBC (Bld) [#/Vol] 7.6 10*3/uL 4.4-11.0 [facility] Basic metabolic 2000 panelon 08-20-2024 Anion gap [Moles/Vol] 14 mmol/L Normal 8-15 [facility] Comment on above: Order Comment: Speci men Type: BLOOD SPECIMEN Ordering Facility: [facility] Address: [address] [place] [address] Performed By: #### 3 3762-6, 32775-4 #### [facility] CLIA [id number] [address] [place] [address] [place] Calcium [Mass/Vol] 11.5 mg/dL High 8.5-10.2 [facility] Comment on above: Order Comment: Speci men Type: BLOOD SPECIMEN Ordering Facility: [facility] Address: [address] [place] [address] Performed By: #### 3 3762-6, 02998-5 #### [facility] CLIA [id number] [address] [place], [place] [id number] [place] Chloride [Moles/Vol] 100 mmol/L Normal 98-107 [facility] Comment on above: Order Comment: Speci men Type: BLOOD SPECIMEN Ordering Facility: [facility] Address: [address] [place] [address] Performed By: #### 3 3762-6, 08444-1 #### [facility] CLIA [id number] [address] [place] [address] [place] CO2 [Moles/Vol] 23 mmol/L Normal 22-30 [facility] Comment on above: Order Comment: Speci men Type: BLOOD SPECIMEN Ordering Facility: [facility] Address: [address] [place] [address] Performed By: #### 3 3762-6, 80684-9 #### [facility] CLIA [id number] [address] [place] [address] [place] Creatinine [Mass/Vol] 2.56 mg/dL High 0.58-0.96 [facility] Comment on above: Order Comment: Speci men Type: BLOOD SPECIMEN Ordering Facility: [facility] Address: [address] [place] [address] Performed By: #### 3 3762-6, 93691-4 #### [facility] CLIA [id number] [address] [place] [address] [place] Creatinine and Glomerular filtration rate.predicted panel (S/P/Bld) 18 mL/min/1.73m??? Low >=60 [facility] Comment on above: Order Comment: Speci men Type: BLOOD SPECIMEN Ordering Facility: [facility] Address: [address] [place] [address] Result Comment: Prerna mated Glomerular Filtration Rate (eGFR) is calculated using the 2020 CKD-EPI creatinine equation. This equation utilizes serum creatinine, sex, and age as parameters. The creatinine assay has traceable calibration to isotope dilution-mass spectrometry. Refer to KDIGO guidelines for clinical interpretation. In patients with unstable renal function, e.g. those with acute kidney injury, the eGFR may not accurately reflect actual GFR. Performed By: #### 3 3762-6, 26216-5 #### [facility] CLIA [id number] [address] [place] [address] [place] Glucose [Mass/Vol] 126 mg/dL High 74-99 [facility] Comment on above: Order Comment: Gen perez Type: BLOOD SPECIMEN Ordering Facility: [facility] Address: [address] [place] [address] Result Comment: The [place] [employer] (ADA) provides guidance for cutoff values for fasting glucose and random glucose. The ADA defines fasting as no caloric intake for at least 8 hours. Fasting plasma glucose results between 100 to 125 mg/dL indicate increased risk for diabetes (prediabetes). Fasting plasma glucose results greater than or equal to 126 mg/dL meet the criteria for diagnosis of diabetes. In the absence of unequivocal hyperglycemia, results should be confirmed by repeat testing. In a patient with classic symptoms of hyperglycemia or hyperglycemic crisis, random plasma glucose results greater than or equal to 200 mg/dL meet the criteria for diagnosis of diabetes. Reference: Standards of Medical Care in Diabetes 2016, [place] [employer]. Diabetes Care. 2016.39(Suppl 1). Performed By: #### 3 3762-6, 30549-1 #### [facility] CLIA [id number] [address] [place] [address] [place] Potassium [Moles/Vol] 5.9 mmol/L High 3.7-5.1 [facility] Comment on above: Order Comment: Gen perez Type: BLOOD SPECIMEN Ordering Facility: [facility] Address: [address] [place] [address] Performed By: #### 3 3762-6, 90963-1 #### [facility] CLIA [id number] [address] [place] [address] [place] Sodium [Moles/Vol] 137 mmol/L Normal 136-144 [facility] Comment on above: Order Comment: Speci men Type: BLOOD SPECIMEN Ordering Facility: [facility] Address: [address] [place] [address] Performed By: #### 3 3762-6, 95076-3 #### [facility] CLIA [id number] [address] [place] [address] [place] Urea nitrogen [Mass/Vol] 78 mg/dL High 7-21 [facility] Comment on above: Order Comment: Speci men Type: BLOOD SPECIMEN Ordering Facility: [facility] Address: [address] [place] [address] Performed By: #### 3 3762-6, 67050-8 #### [facility] CLIA [id number] [address] [place] [address] [place] NT-proBNP [facility] 08-20 Natriuretic peptide.B prohormone N-Terminal [Mass/Vol] 1362 pg/mL High <450 [facility] Comment on above: Order Comment: Speci men Type: BLOOD SPECIMEN Ordering Facility: [facility] Address: [address] [place] [address] Performed By: #### 3 3762-6, 58828-8 #### [facility] CLIA [id number] [address] [place] [address] [place] Anion gap in Serum or Plasma Ordered By: Nahun Diaz on 08-10-2024 Anion gap [Moles/Vol] 13 mmol/L 5-15 [facility] BUN/creatinine ratioOrdered By: Nahun Diaz on 08-10-2024 Urea nitrogen/Creatinine [Mass ratio] 22.7 mg/mg High - [facility] Basic Metabolic Profile (BMP )on 08-10-2024 BUN/CRE 22.7 RATIO High 12-24 [facility] Comment on above: Performed By: #### L 499.0042 #### [facility] [address] [place], [address] Calcium [Mass/Vol] 11.0 mg/dL Normal 7.6-11.0 [facility] Comment on above: Performed By: #### L 499.0042 #### [facility] [address] [place], [address] Chloride [Moles/Vol] 99 mmol/L Normal 98-108 [facility] Comment on above: Performed By: #### L 499.0042 #### [facility] [address] [place], [address] CO2 [Moles/Vol] 26.9 mmol/L Normal 21.0-32.0 [facility] Comment on above: Performed By: #### L 499.0042 #### [facility] [address] [place], [address] Creatinine [Mass/Vol] 1.54 mg/dL High 0.70-1.20 [facility] Comment on above: Performed By: #### L 499.0042 #### [facility] [address] [place], [address] GAP 13 Normal 5-15 [facility] Comment on above: Performed By: #### L 499.0042 #### [facility] [address] [place], [address] GFR/1.73 sq M.predicted among non-blacks MDRD (S/P/Bld) [Vol rate/Area] 34 mL/min/{1.73_m2} Low >60 [facility] Comment on above: Result Comment: mL/m in/1.73m2 CKD-EPI Creatinine Equation (2020) Performed By: #### L 499.0042 #### [facility] [address] [place], [address] Glucose [Mass/Vol] 116 mg/dL High 70-99 [facility] Comment on above: Performed By: #### L 499.0042 #### [facility] [address] [place], [address] Potassium [Moles/Vol] 5.0 mmol/L Normal 3.3-5.1 [facility] Comment on above: Performed By: #### L 499.0042 #### [facility] [address] [place], [address] Sodium [Moles/Vol] 138 mmol/L Normal 133-145 [facility] Comment on above: Performed By: #### L 499.0042 #### [facility] [address] [place], [address] Urea nitrogen [Mass/Vol] 35 mg/dL High 4-19 [facility] Comment on above: Performed By: #### L 499.0042 #### [facility] [address] [place], [address] Carbon dioxide, total [Moles /volume] in Central venous bloodOrdered By: Nahun Diaz on 08-10-2024 CO2 [Moles/Vol] 26.9 mmol/L 21.0-32.0 [facility] Chloride assayOrdered By: Willie Diaz on 08-10-2024 Chloride [Moles/Vol] 99 mmol/L 98-108 [facility] Glomerular filtration rate ( GFR) estimation/1.73 sq m using serum, plasma, or whole bOrdered By: Nahun Diaz on 08-10-2024 GFR/1.73 sq M.predicted among non-blacks MDRD (S/P/Bld) [Vol rate/Area] 34 mL/min/{1.73_m2} Low >60 [facility] Comment on above: mL/min/1.73m2 CKD-EP I Creatinine Equation (2020) Potassium measurement (mass/ volume)Ordered By: Nahun Diaz on 08-10-2024 Potassium (Unsp spec) [Mass/Vol] 5.0 mmol/L 3.3-5.1 [facility] Serum creatinine measurement (mass/volume)Ordered By: Nahun Diaz on 08-10-2024 Creatinine [Mass/Vol] 1.54 mg/dL High 0.70-1.20 [facility] Serum glucose measurement (m ass/volume)Ordered By: Nahun Diaz on 08-10-2024 Glucose [Mass/Vol] 116 mg/dL High 70-99 [facility] Serum or plasma calcium piedad urement (mass/volume)Ordered By: Nahun Diaz on 08-10-2024 Calcium [Mass/Vol] 11.0 mg/dL 7.6-11.0 [facility] Serum or plasma urea nitroge n measurement (mass/volume)Ordered By: Nahun Diaz on 08-10-2024 Urea nitrogen [Mass/Vol] 35 mg/dL High 4-19 [facility] Sodium levelOrdered By: Josué Diaz on 08-10-2024 Sodium [Moles/Vol] 138 mmol/L 133-145 [facility] Basic Metabolic Profile (BMP )on 08-06-2024 BUN Normal 4-19 [facility] Comment on above: Result Comment: Canc elled via OM: Order cancelled - Patient discharged Performed By: #### L 500.2500 #### [facility] [address] [facility] [address] BUN/CRE Normal 10-20 [facility] Comment on above: Result Comment: Canc elled via OM: Order cancelled - Patient discharged Performed By: #### L 500.2500 #### [facility] [address] [facility] [address] Calcium Normal 7.6-11.0 [facility] Comment on above: Result Comment: Canc elled via OM: Order cancelled - Patient discharged Performed By: #### L 500.2500 #### [facility] [address] [facility] [address] CL Normal 98-108 [facility] Comment on above: Result Comment: Canc elled via OM: Order cancelled - Patient discharged Performed By: #### L 500.2500 #### [facility] [address] [place], [address] CO2 Normal 21.0-32.0 [facility] Comment on above: Result Comment: Canc elled via OM: Order cancelled - Patient discharged Performed By: #### L 500.2500 #### [facility] [address] [place], [address] CREAT,SERUM Normal 0.70-1.20 [facility] Comment on above: Result Comment: Canc elled via OM: Order cancelled - Patient discharged Performed By: #### L 500.2500 #### [facility] [address] [place], [address] eGFR Normal >60 [facility] Comment on above: Result Comment: Canc elled via OM: Order cancelled - Patient discharged Performed By: #### L 500.2500 #### [facility] [address] [place], [address] GAP Normal 5-15 [facility] Comment on above: Result Comment: Canc elled via OM: Order cancelled - Patient discharged Performed By: #### L 500.2500 #### [facility] [address] [place], [address] GLU Normal 70-99 [facility] Comment on above: Result Comment: Canc elled via OM: Order cancelled - Patient discharged Performed By: #### L 500.2500 #### [facility] [address] [place], [address] Potassium Normal 3.3-5.1 [facility] Comment on above: Result Comment: Canc elled via OM: Order cancelled - Patient discharged Performed By: #### L 500.2500 #### [facility] [address] [place], [address] Basic Metabolic Profile (BMP) Normal 133-145 [facility] Comment on above: Result Comment: Canc elled via OM: Order cancelled - Patient discharged Performed By: #### L 500.2500 #### [facility] [address] [place], [address] CBC W/Diff, Automatedon 06-0 -2024 Absolute Neut Normal 2.0-7.7 [facility] Comment on above: Result Comment: Canc elled via OM: Order cancelled - Patient discharged Performed By: #### L 100.0100 #### [facility] [address] [place], [address] HCT Normal 37-47 [facility] Comment on above: Result Comment: Canc elled via OM: Order cancelled - Patient discharged Performed By: #### L 100.0100 #### [facility] [address] [place], [address] HGB Normal 12.0-15.0 [facility] Comment on above: Result Comment: Canc elled via OM: Order cancelled - Patient discharged Performed By: #### L 100.0100 #### [facility] [address] [place], [address] MCH Normal 27.0-32.0 [facility] Comment on above: Result Comment: Canc elled via OM: Order cancelled - Patient discharged Performed By: #### L 100.0100 #### [facility] [address] [place], [address] MCHC Normal 32-36 [facility] Comment on above: Result Comment: Canc elled via OM: Order cancelled - Patient discharged Performed By: #### L 100.0100 #### [facility] [address] [place], [address] MCV Normal 81-99 [facility] Comment on above: Result Comment: Canc elled via OM: Order cancelled - Patient discharged Performed By: #### L 100.0100 #### [facility] [address] [place], [address] NEUT% Normal 47-70 [facility] Comment on above: Result Comment: Canc elled via OM: Order cancelled - Patient discharged Performed By: #### L 100.0100 #### [facility] [address] [place], [address] PLT Normal 150-450 [facility] Comment on above: Result Comment: Canc elled via OM: Order cancelled - Patient discharged Performed By: #### L 100.0100 #### [facility] [address] [place], [address] RBC Normal 4.2-5.4 [facility] Comment on above: Result Comment: Canc elled via OM: Order cancelled - Patient discharged Performed By: #### L 100.0100 #### [facility] [address] [place], [address] RDW CV Normal 11.6-14.6 [facility] Comment on above: Result Comment: Canc elled via OM: Order cancelled - Patient discharged Performed By: #### L 100.0100 #### [facility] [address] [place], [address] RDW SD Normal 35.1-43.9 [facility] Comment on above: Result Comment: Canc elled via OM: Order cancelled - Patient discharged Performed By: #### L 100.0100 #### [facility] [address] [place], [address] WBC Normal 4.4-11.0 [facility] Comment on above: Result Comment: Canc elled via OM: Order cancelled - Patient discharged Performed By: #### L 100.0100 #### [facility] [address] [place], [address] Basic Metabolic Profile (BMP )on 08-05-2024 BUN Normal 4-19 [facility] Comment on above: Result Comment: Canc elled via OM: Order cancelled - Patient discharged Performed By: #### L 500.2500 #### [facility] [address] [place], [address] BUN/CRE Normal 10-20 [facility] Comment on above: Result Comment: Canc elled via OM: Order cancelled - Patient discharged Performed By: #### L 500.2500 #### [facility] [address] [place], [address] Calcium Normal 7.6-11.0 [facility] Comment on above: Result Comment: Canc elled via OM: Order cancelled - Patient discharged Performed By: #### L 500.2500 #### [facility] [address] [place], [address] CL Normal 98-108 [facility] Comment on above: Result Comment: Canc elled via OM: Order cancelled - Patient discharged Performed By: #### L 500.2500 #### [facility] [address] [place], [address] CO2 Normal 21.0-32.0 [facility] Comment on above: Result Comment: Canc elled via OM: Order cancelled - Patient discharged Performed By: #### L 500.2500 #### [facility] [address] [place], [address] CREAT,SERUM Normal 0.70-1.20 [facility] Comment on above: Result Comment: Canc elled via OM: Order cancelled - Patient discharged Performed By: #### L 500.2500 #### [facility] [address] [place], [address] eGFR Normal >60 [facility] Comment on above: Result Comment: Canc elled via OM: Order cancelled - Patient discharged Performed By: #### L 500.2500 #### [facility] [address] [place], [address] GAP Normal 5-15 [facility] Comment on above: Result Comment: Canc elled via OM: Order cancelled - Patient discharged Performed By: #### L 500.2500 #### [facility] [address] [place], [address] GLU Normal 70-99 [facility] Comment on above: Result Comment: Canc elled via OM: Order cancelled - Patient discharged Performed By: #### L 500.2500 #### [facility] [address] [place], [address] Potassium Normal 3.3-5.1 [facility] Comment on above: Result Comment: Canc elled via OM: Order cancelled - Patient discharged Performed By: #### L 500.2500 #### [facility] [address] [place], [address] Basic Metabolic Profile (BMP) Normal 133-145 [facility] Comment on above: Result Comment: Canc elled via OM: Order cancelled - Patient discharged Performed By: #### L 500.2500 #### [facility] [address] [place], [address] CBC W/Diff, Automatedon 06-0 -2024 Absolute Neut Normal 2.0-7.7 [facility] Comment on above: Result Comment: Canc elled via OM: Order cancelled - Patient discharged Performed By: #### L 300.8000, L503.7505, L500.2500, L100.0100 #### [facility] [address] [place], [address] HCT Normal 37-47 [facility] Comment on above: Result Comment: Canc elled via OM: Order cancelled - Patient discharged Performed By: #### L 300.8000, L503.7505, L500.2500, L100.0100 #### [facility] [address] [place], [address] HGB Normal 12.0-15.0 [facility] Comment on above: Result Comment: Canc elled via OM: Order cancelled - Patient discharged Performed By: #### L 300.8000, L503.7505, L500.2500, L100.0100 #### [facility] [address] [place], [address] MCH Normal 27.0-32.0 [facility] Comment on above: Result Comment: Canc elled via OM: Order cancelled - Patient discharged Performed By: #### L 300.8000, L503.7505, L500.2500, L100.0100 #### [facility] [address] [place], [address] MCHC Normal 32-36 [facility] Comment on above: Result Comment: Canc elled via OM: Order cancelled - Patient discharged Performed By: #### L 300.8000, L503.7505, L500.2500, L100.0100 #### [facility] [address] [place], [address] MCV Normal 81-99 [facility] Comment on above: Result Comment: Canc elled via OM: Order cancelled - Patient discharged Performed By: #### L 300.8000, L503.7505, L500.2500, L100.0100 #### [facility] [address] [place], [address] NEUT% Normal 47-70 [facility] Comment on above: Result Comment: Canc elled via OM: Order cancelled - Patient discharged Performed By: #### L 300.8000, L503.7505, L500.2500, L100.0100 #### [facility] [address] [place], [address] PLT Normal 150-450 [facility] Comment on above: Result Comment: Canc elled via OM: Order cancelled - Patient discharged Performed By: #### L 300.8000, L503.7505, L500.2500, L100.0100 #### [facility] [address] [place], [address] RBC Normal 4.2-5.4 [facility] Comment on above: Result Comment: Canc elled via OM: Order cancelled - Patient discharged Performed By: #### L 300.8000, L503.7505, L500.2500, L100.0100 #### [facility] [address] [place], [address] RDW CV Normal 11.6-14.6 [facility] Comment on above: Result Comment: Canc elled via OM: Order cancelled - Patient discharged Performed By: #### L 300.8000, L503.7505, L500.2500, L100.0100 #### [facility] [address] [place], [address] RDW SD Normal 35.1-43.9 [facility] Comment on above: Result Comment: Canc elled via OM: Order cancelled - Patient discharged Performed By: #### L 300.8000, L503.7505, L500.2500, L100.0100 #### [facility] [address] [place], [address] WBC Normal 4.4-11.0 [facility] Comment on above: Result Comment: Canc elled via OM: Order cancelled - Patient discharged Performed By: #### L 300.8000, L503.7505, L500.2500, L100.0100 #### [facility] [address] [place], [address] Basic Metabolic Profile (BMP )on 08-04-2024 BUN Normal 4-19 [facility] Comment on above: Result Comment: Canc elled via OM: Order cancelled - Patient discharged Performed By: #### L 500.2500, L100.0100 #### [facility] [address] [place], [address] BUN/CRE Normal 10-20 [facility] Comment on above: Result Comment: Canc elled via OM: Order cancelled - Patient discharged Performed By: #### L 500.2500, L100.0100 #### [facility] [address] [place], [address] Calcium Normal 7.6-11.0 [facility] Comment on above: Result Comment: Canc elled via OM: Order cancelled - Patient discharged Performed By: #### L 500.2500, L100.0100 #### [facility] [address] [place], [address] CL Normal 98-108 [facility] Comment on above: Result Comment: Canc elled via OM: Order cancelled - Patient discharged Performed By: #### L 500.2500, L100.0100 #### [facility] [address] [place], [address] CO2 Normal 21.0-32.0 [facility] Comment on above: Result Comment: Canc elled via OM: Order cancelled - Patient discharged Performed By: #### L 500.2500, L100.0100 #### [facility] [address] [place], [address] CREAT,SERUM Normal 0.70-1.20 [facility] Comment on above: Result Comment: Canc elled via OM: Order cancelled - Patient discharged Performed By: #### L 500.2500, L100.0100 #### [facility] [address] [place], [address] eGFR Normal >60 [facility] Comment on above: Result Comment: Canc elled via OM: Order cancelled - Patient discharged Performed By: #### L 500.2500, L100.0100 #### [facility] [address] [place], [address] GAP Normal 5-15 [facility] Comment on above: Result Comment: Canc elled via OM: Order cancelled - Patient discharged Performed By: #### L 500.2500, L100.0100 #### [facility] [address] [place], [address] GLU Normal 70-99 [facility] Comment on above: Result Comment: Canc elled via OM: Order cancelled - Patient discharged Performed By: #### L 500.2500, L100.0100 #### [facility] [address] [place], [address] Potassium Normal 3.3-5.1 [facility] Comment on above: Result Comment: Canc elled via OM: Order cancelled - Patient discharged Performed By: #### L 500.2500, L100.0100 #### [facility] [address] [place], [address] Basic Metabolic Profile (BMP) Normal 133-145 [facility] Comment on above: Result Comment: Canc elled via OM: Order cancelled - Patient discharged Performed By: #### L 500.2500, L100.0100 #### [facility] [address] [place], [address] CBC W/Diff, Automatedon 05-3 Absolute Neut Normal 2.0-7.7 [facility] Comment on above: Result Comment: Canc elled via OM: Order cancelled - Patient discharged Performed By: #### L 500.2500, L100.0100 #### [facility] [address] [place], [address] HCT Normal 37-47 [facility] Comment on above: Result Comment: Canc elled via OM: Order cancelled - Patient discharged Performed By: #### L 500.2500, L100.0100 #### [facility] [address] [place], [address] HGB Normal 12.0-15.0 [facility] Comment on above: Result Comment: Canc elled via OM: Order cancelled - Patient discharged Performed By: #### L 500.2500, L100.0100 #### [facility] [address] [place], [address] MCH Normal 27.0-32.0 [facility] Comment on above: Result Comment: Canc elled via OM: Order cancelled - Patient discharged Performed By: #### L 500.2500, L100.0100 #### [facility] [address] [place], [address] MCHC Normal 32-36 [facility] Comment on above: Result Comment: Canc elled via OM: Order cancelled - Patient discharged Performed By: #### L 500.2500, L100.0100 #### [facility] [address] [place], [address] MCV Normal 81-99 [facility] Comment on above: Result Comment: Canc elled via OM: Order cancelled - Patient discharged Performed By: #### L 500.2500, L100.0100 #### [facility] [address] [place], [address] NEUT% Normal 47-70 [facility] Comment on above: Result Comment: Canc elled via OM: Order cancelled - Patient discharged Performed By: #### L 500.2500, L100.0100 #### [facility] [address] [place], [address] PLT Normal 150-450 [facility] Comment on above: Result Comment: Canc elled via OM: Order cancelled - Patient discharged Performed By: #### L 500.2500, L100.0100 #### [facility] [address] [place], [address] RBC Normal 4.2-5.4 [facility] Comment on above: Result Comment: Canc elled via OM: Order cancelled - Patient discharged Performed By: #### L 500.2500, L100.0100 #### [facility] [address] [place], [address] RDW CV Normal 11.6-14.6 [facility] Comment on above: Result Comment: Canc elled via OM: Order cancelled - Patient discharged Performed By: #### L 500.2500, L100.0100 #### [facility] [address] [place], [address] RDW SD Normal 35.1-43.9 [facility] Comment on above: Result Comment: Canc elled via OM: Order cancelled - Patient discharged Performed By: #### L 500.2500, L100.0100 #### [facility] [address] [place], [address] WBC Normal 4.4-11.0 [facility] Comment on above: Result Comment: Canc elled via OM: Order cancelled - Patient discharged Performed By: #### L 500.2500, L100.0100 #### [facility] [address] [place], [address] Absolute lymphocyte countOrd ered By: Nahun Diaz on 08-03-2024 Lymphocytes Auto (Unsp spec) [#/Vol] 1.86 10*3/uL 0.83-4.51 [facility] Absolute neutrophil countOrd ered By: Nahun Diaz on 08-03-2024 Neutrophils (Bld) [#/Vol] 4.9 10*3/uL 2.0-7.7 [facility] Anion gap in Serum or Plasma Ordered By: Nahun Diaz on 08-03-2024 Anion gap [Moles/Vol] 14 mmol/L 5- [facility] Automated lymphocyte count a s percentage of total leukocytesOrdered By: Nahun Diaz on 08-03-2024 Lymphocytes/100 WBC Auto (Unsp spec) 23.8 % [facility] BUN/creatinine ratioOrdered By: Nahun Diaz on 08-03-2024 Urea nitrogen/Creatinine [Mass ratio] 18.1 mg/mg - [facility] Basic Metabolic Profile (BMP )on 08-03-2024 BUN/CRE 18.1 RATIO Normal 12-24 [facility] Comment on above: Performed By: #### L 500.2500, L100.0100 #### [facility] [address] [place], [address] Calcium [Mass/Vol] 9.4 mg/dL Normal 7.6-11.0 [facility] Comment on above: Performed By: #### L 500.2500, L100.0100 #### [facility] [address] [place], [address] Chloride [Moles/Vol] 99 mmol/L Normal 98-108 [facility] Comment on above: Performed By: #### L 500.2500, L100.0100 #### [facility] [address] [place], [address] CO2 [Moles/Vol] 28.0 mmol/L Normal 21.0-32.0 [facility] Comment on above: Performed By: #### L 500.2500, L100.0100 #### [facility] [address] [place], [address] Creatinine [Mass/Vol] 1.05 mg/dL Normal 0.70-1.20 [facility] Comment on above: Performed By: #### L 500.2500, L100.0100 #### [facility] [address] [place], [address] ECRCL 42.87 ml/min Low 50-250 [facility] Comment on above: Performed By: #### L 500.2500, L100.0100 #### [facility] [address] [place], [address] GAP 14 Normal 5-15 [facility] Comment on above: Performed By: #### L 500.2500, L100.0100 #### [facility] [address] [place], [address] GFR/1.73 sq M.predicted among non-blacks MDRD (S/P/Bld) [Vol rate/Area] 53 mL/min/{1.73_m2} Low >60 [facility] Comment on above: Result Comment: mL/m in/1.73m2 CKD-EPI Creatinine Equation (2020) Performed By: #### L 500.2500, L100.0100 #### [facility] [address] [place], [address] Glucose [Mass/Vol] 111 mg/dL High 70-99 [facility] Comment on above: Performed By: #### L 500.2500, L100.0100 #### [facility] [address] [place], [address] Potassium [Moles/Vol] 2.9 mmol/L Low 3.3-5.1 [facility] Comment on above: Performed By: #### L 500.2500, L100.0100 #### [facility] [address] [place], [address] Sodium [Moles/Vol] 141 mmol/L Normal 133-145 [facility] Comment on above: Performed By: #### L 500.2500, L100.0100 #### [facility] [address] [place], [address] Urea nitrogen [Mass/Vol] 19 mg/dL Normal 4-19 [facility] Comment on above: Performed By: #### L 500.2500, L100.0100 #### [facility] [address] [place], [address] Basophil percentageOrdered B y: Nahun Diaz on 08-03-2024 Basophils/100 WBC (Bld) 0.5 % 0-1 [facility] CBC W/Diff, Automatedon 07-07 Absolute Lymph 1.86 X10 3/uL Normal 0.83-4.51 [facility] Comment on above: Performed By: #### L 500.2500, L100.0100 #### [facility] [address] [place], [address] Absolute Neut 4.9 X10 3/uL Normal 2.0-7.7 [facility] Comment on above: Performed By: #### L 500.2500, L100.0100 #### [facility] [address] [place], [address] Basophils/100 WBC (Bld) 0.5 % Normal 0-1 [facility] Comment on above: Performed By: #### L 500.2500, L100.0100 #### [facility] [address] [place], [address] Eosinophils/100 WBC (Bld) 2.4 % Normal 0-5 [facility] Comment on above: Performed By: #### L 500.2500, L100.0100 #### [facility] [address] [place], [address] Erythrocyte distribution width (RBC) [Ratio] 15.0 % High 11.6-14.6 [facility] Comment on above: Performed By: #### L 500.2500, L100.0100 #### [facility] [address] [place], [address] Hematocrit (Bld) [Volume fraction] 35.9 % Low 37-47 [facility] Comment on above: Performed By: #### L 500.2500, L100.0100 #### [facility] [address] [place], [address] Hemoglobin (Bld) [Mass/Vol] 11.7 g/dL Low 12.0-15.0 [facility] Comment on above: Performed By: #### L 500.2500, L100.0100 #### [facility] [address] [place], [address] IG% 0.300 Normal 0.0-0.9 [facility] Comment on above: Result Comment: IG% - Immature Granulocytes (promyelocytes, myelocytes and metamyelocytes) > 1% indicates that a LEFT SHIFT is Present. Performed By: #### L 500.2500, L100.0100 #### [facility] [address] [place], [address] Lymphocytes/100 WBC (Bld) 23.8 % Normal 19-41 [facility] Comment on above: Performed By: #### L 500.2500, L100.0100 #### [facility] [address] [place], [address] MCH (RBC) [Entitic mass] 28.1 pg Normal 27.0-32.0 [facility] Comment on above: Performed By: #### L 500.2500, L100.0100 #### [facility] [address] [place], [address] MCHC (RBC) [Mass/Vol] 32.6 g/dL Normal 32-36 [facility] Comment on above: Performed By: #### L 500.2500, L100.0100 #### [facility] [address] [place], [address] MCV (RBC) [Entitic vol] 86.3 fL Normal 81-99 [facility] Comment on above: Performed By: #### L 500.2500, L100.0100 #### [facility] [address] [place], [address] Monocytes/100 WBC (Bld) 10.5 % High 0-10 [facility] Comment on above: Performed By: #### L 500.2500, L100.0100 #### [facility] [address] [place], [address] Neutrophils/100 WBC (Bld) 62.5 % Normal 47-70 [facility] Comment on above: Performed By: #### L 500.2500, L100.0100 #### [facility] [address] [place], [address] Nucleated RBC (Bld) [#/Vol] 0 10*3/uL Normal 0-5 [facility] Comment on above: Performed By: #### L 500.2500, L100.0100 #### [facility] [address] [place], [address] Platelet mean volume (Bld) [Entitic vol] 11.3 fL Normal 6.2-12.0 [facility] Comment on above: Performed By: #### L 500.2500, L100.0100 #### [facility] [address] [place], [address] Platelets (Bld) [#/Vol] 209 10*3/uL Normal 150-450 [facility] Comment on above: Performed By: #### L 500.2500, L100.0100 #### [facility] [address] [place], [address] RBC (Bld) [#/Vol] 4.16 10*6/uL Low 4.2-5.4 [facility] Comment on above: Performed By: #### L 500.2500, L100.0100 #### [facility] [address] [place], [address] RDW SD 47.7 fl High 35.1-43.9 [facility] Comment on above: Performed By: #### L 500.2500, L100.0100 #### [facility] [address] [place], [address] WBC (Bld) [#/Vol] 7.8 10*3/uL Normal 4.4-11.0 [facility] Comment on above: Performed By: #### L 500.2500, L100.0100 #### [facility] [address] [place], [address] Carbon dioxide, total [Moles /volume] in Central venous bloodOrdered By: Nahun Diaz on 08-03-2024 CO2 [Moles/Vol] 28.0 mmol/L 21.0-32.0 [facility] Chloride assayOrdered By: Willie Diaz on 08-03-2024 Chloride [Moles/Vol] 99 mmol/L 98-108 [facility] Eosinophil percentageOrdered By: Nahun Diaz on 08-03-2024 Eosinophils/100 WBC (Bld) 2.4 % 0-5 [facility] Erythrocyte distribution wid th ratioOrdered By: Nahun Diaz on 08-03-2024 Erythrocyte distribution width (RBC) [Ratio] 15.0 % High 11.6-14.6 [facility] Erythrocyte distribution wid th standard deviationOrdered By: Nahun Diaz on 08-03-2024 Erythrocyte distribution width (RBC) [Ratio] 47.7 fl High 35.1-43.9 [facility] Glomerular filtration rate ( GFR) estimation/1.73 sq m using serum, plasma, or whole bOrdered By: Nahun Diaz on 08-03-2024 GFR/1.73 sq M.predicted among non-blacks MDRD (S/P/Bld) [Vol rate/Area] 53 mL/min/{1.73_m2} Low >60 [facility] Comment on above: mL/min/1.73m2 CKD-EP I Creatinine Equation (2020) Hematocrit Auto (Bld) [Volum e fraction]Ordered By: Nahun Diaz on 08-03-2024 Hematocrit (Bld) [Volume fraction] 35.9 % Low 37-47 [facility] Hemoglobin measurementOrdere d By: Nahun Diaz on 08-03-2024 Hemoglobin (Bld) [Mass/Vol] 11.7 g/dL Low 12.0-15.0 [facility] Immature granulocytes/100 WB C Auto (Bld)Ordered By: Nahun Diaz on 08-03-2024 Immature granulocytes/100 WBC (Bld) 0.300 % 0.0-0.9 [facility] Comment on above: IG% - Immature Granu locytes (promyelocytes, myelocytes and metamyelocytes) > 1% indicates that a LEFT SHIFT is Present. MCV (mean corpuscular volume ) determinationOrdered By: Nahun Diaz on 08-03-2024 MCV (RBC) [Entitic vol] 86.3 fL 81-99 [facility] Mean corpuscular hemoglobin (MCH) determinationOrdered By: Nahun Diaz on 08-03-2024 MCH (RBC) [Entitic mass] 28.1 pg 27.0-32.0 [facility] Mean corpuscular hemoglobin concentration (MCHC) determinationOrdered By: Nahun Diaz on 08-03-2024 MCHC (RBC) [Mass/Vol] 32.6 g/dL 32-36 [facility] Mean platelet volume determi nationOrdered By: Nahun Diaz on 08-03-2024 Platelet mean volume (Bld) [Entitic vol] 11.3 fL 6.2-12.0 [facility] Monocyte percentageOrdered B y: Nahun Diaz on 08-03-2024 Monocytes/100 WBC (Bld) 10.5 % High 0-10 [facility] Neutrophil percentageOrdered By: Nahun Diaz on 08-03-2024 Neutrophils/100 WBC (Bld) 62.5 % 47-70 [facility] Nucleated red blood cell per centageOrdered By: Nahun Diaz on 08-03-2024 Nucleated RBC/100 WBC (Bld) [Ratio] 0 % 0-5 [facility] Platelet countOrdered By: Willie Diaz on 08-03-2024 Platelets (Bld) [#/Vol] 209 10*3/uL 150-450 [facility] Potassium measurement (mass/ volume)Ordered By: Nahun Diaz on 08-03-2024 Potassium (Unsp spec) [Mass/Vol] 2.9 mmol/L Low 3.3-5.1 [facility] RBC Auto (Bld) [#/Vol]Ordere d By: Nahun Diaz on 08-03-2024 RBC (Bld) [#/Vol] 4.16 10*6/uL Low 4.2-5.4 [facility] Serum creatinine measurement (mass/volume)Ordered By: Nahun Diaz on 08-03-2024 Creatinine [Mass/Vol] 1.05 mg/dL 0.70-1.20 [facility] Serum glucose measurement (m ass/volume)Ordered By: Nahun Diaz on 08-03-2024 Glucose [Mass/Vol] 111 mg/dL High 70-99 [facility] Serum or plasma calcium piedad urement (mass/volume)Ordered By: Nahun Diaz on 08-03-2024 Calcium [Mass/Vol] 9.4 mg/dL 7.6-11.0 [facility] Serum or plasma urea nitroge n measurement (mass/volume)Ordered By: Nahun Diaz on 08-03-2024 Urea nitrogen [Mass/Vol] 19 mg/dL 4-19 [facility] Sodium levelOrdered By: Josué Diaz on 08-03-2024 Sodium [Moles/Vol] 141 mmol/L 133-145 [facility] White blood cell (WBC) count Ordered By: Nahun Diaz on 08-03-2024 WBC (Bld) [#/Vol] 7.8 10*3/uL 4.4-11.0 [facility] Basic Metabolic Profile (BMP )on 08-02-2024 BUN/CRE 13.5 RATIO Normal 10-20 [facility] Comment on above: Performed By: #### L 500.2500, L100.0100 #### [facility] [address] [place], [address] Calcium [Mass/Vol] 10.0 mg/dL Normal 7.6-11.0 [facility] Comment on above: Performed By: #### L 500.2500, L100.0100 #### [facility] [address] [place], [address] Chloride [Moles/Vol] 103 mmol/L Normal 98-108 [facility] Comment on above: Performed By: #### L 500.2500, L100.0100 #### [facility] [address] [place], [address] CO2 [Moles/Vol] 28.4 mmol/L Normal 21.0-32.0 [facility] Comment on above: Performed By: #### L 500.2500, L100.0100 #### [facility] [address] [place], [address] Creatinine [Mass/Vol] 1.05 mg/dL Normal 0.70-1.20 [facility] Comment on above: Performed By: #### L 500.2500, L100.0100 #### [facility] [address] [place], [address] ECRCL 42.79 ml/min Low 50-250 [facility] Comment on above: Performed By: #### L 500.2500, L100.0100 #### [facility] [address] [place], [address] GAP 15 Normal 5-15 [facility] Comment on above: Performed By: #### L 500.2500, L100.0100 #### [facility] [address] [place], [address] GFR/1.73 sq M.predicted among non-blacks MDRD (S/P/Bld) [Vol rate/Area] 53 mL/min/{1.73_m2} Low >60 [facility] Comment on above: Result Comment: mL/m in/1.73m2 CKD-EPI Creatinine Equation (2020) Performed By: #### L 500.2500, L100.0100 #### [facility] [address] [place], [address] Glucose [Mass/Vol] 94 mg/dL Normal 70-99 [facility] Comment on above: Performed By: #### L 500.2500, L100.0100 #### [facility] [address] [place], [address] Potassium [Moles/Vol] 3.4 mmol/L Normal 3.3-5.1 [facility] Comment on above: Performed By: #### L 500.2500, L100.0100 #### [facility] [address] [place], [address] Sodium [Moles/Vol] 146 mmol/L High 133-145 [facility] Comment on above: Performed By: #### L 500.2500, L100.0100 #### [facility] [address] [place], [address] Urea nitrogen [Mass/Vol] 14 mg/dL Normal 4-19 [facility] Comment on above: Performed By: #### L 500.2500, L100.0100 #### [facility] [address] [place], [address] CBC W/Diff, Automatedon 05-2 Absolute Lymph 1.19 X10 3/uL Normal 0.83-4.51 [facility] Comment on above: Performed By: #### L 500.2500, L100.0100 #### [facility] [address] [place], [address] Absolute Neut 5.1 X10 3/uL Normal 2.0-7.7 [facility] Comment on above: Performed By: #### L 500.2500, L100.0100 #### [facility] [address] [place], [address] Basophils/100 WBC (Bld) 0.4 % Normal 0-1 [facility] Comment on above: Performed By: #### L 500.2500, L100.0100 #### [facility] [address] [place], [address] Eosinophils/100 WBC (Bld) 2.0 % Normal 0-5 [facility] Comment on above: Performed By: #### L 500.2500, L100.0100 #### [facility] [address] [place], [address] Erythrocyte distribution width (RBC) [Ratio] 15.0 % High 11.6-14.6 [facility] Comment on above: Performed By: #### L 500.2500, L100.0100 #### [facility] [address] [place], [address] Hematocrit (Bld) [Volume fraction] 36.3 % Low 37-47 [facility] Comment on above: Performed By: #### L 500.2500, L100.0100 #### [facility] [address] [place], [address] Hemoglobin (Bld) [Mass/Vol] 11.5 g/dL Low 12.0-15.0 [facility] Comment on above: Performed By: #### L 500.2500, L100.0100 #### [facility] [address] [place], [address] IG% 0.100 Normal 0.0-0.9 [facility] Comment on above: Result Comment: IG% - Immature Granulocytes (promyelocytes, myelocytes and metamyelocytes) > 1% indicates that a LEFT SHIFT is Present. Performed By: #### L 500.2500, L100.0100 #### [facility] [address] [place], [address] Lymphocytes/100 WBC (Bld) 16.7 % Low 19-41 [facility] Comment on above: Performed By: #### L 500.2500, L100.0100 #### [facility] [address] [place], [address] MCH (RBC) [Entitic mass] 27.8 pg Normal 27.0-32.0 [facility] Comment on above: Performed By: #### L 500.2500, L100.0100 #### [facility] [address] [place], [address] MCHC (RBC) [Mass/Vol] 31.7 g/dL Low 32-36 [facility] Comment on above: Performed By: #### L 500.2500, L100.0100 #### [facility] [address] [place], [address] MCV (RBC) [Entitic vol] 87.9 fL Normal 81-99 [facility] Comment on above: Performed By: #### L 500.2500, L100.0100 #### [facility] [address] [place], [address] Monocytes/100 WBC (Bld) 9.8 % Normal 0-10 [facility] Comment on above: Performed By: #### L 500.2500, L100.0100 #### [facility] [address] [place], [address] Neutrophils/100 WBC (Bld) 71.0 % High 47-70 [facility] Comment on above: Performed By: #### L 500.2500, L100.0100 #### [facility] [address] [place], [address] Nucleated RBC (Bld) [#/Vol] 0 10*3/uL Normal 0-5 [facility] Comment on above: Performed By: #### L 500.2500, L100.0100 #### [facility] [address] [place], [address] Platelet mean volume (Bld) [Entitic vol] 11.5 fL Normal 6.2-12.0 [facility] Comment on above: Performed By: #### L 500.2500, L100.0100 #### [facility] [address] [place], [address] Platelets (Bld) [#/Vol] 209 10*3/uL Normal 150-450 [facility] Comment on above: Performed By: #### L 500.2500, L100.0100 #### [facility] [address] [place], [address] RBC (Bld) [#/Vol] 4.13 10*6/uL Low 4.2-5.4 [facility] Comment on above: Performed By: #### L 500.2500, L100.0100 #### [facility] [address] [place], [address] RDW SD 48.3 fl High 35.1-43.9 [facility] Comment on above: Performed By: #### L 500.2500, L100.0100 #### [facility] [address] [place], [address] WBC (Bld) [#/Vol] 7.1 10*3/uL Normal 4.4-11.0 [facility] Comment on above: Performed By: #### L 500.2500, L100.0100 #### [facility] [address] [place], [address] Magnesiumon 08-02-2024 Magnesium [Mass/Vol] 1.7 mg/dL Normal 1.5-2.2 [facility] Comment on above: Performed By: #### L 500.2500, L100.0100 #### [facility] [address] [facility] [place], [address] Magnesium measurement (mass/ volume)Ordered By: Nahun Diaz on 08-02-2024 Magnesium (Unsp spec) [Mass/Vol] 1.7 mg/dL 1.5-2.2 [facility] Phosphoruson 08-02-2024 Phosphate [Mass/Vol] 3.7 mg/dL Normal 2.7-4.5 [facility] Comment on above: Performed By: #### L 500.2500, L100.0100 #### [facility] [address] [place], [address] 12 Lead EKGon 08-01-2024 12 Lead EKG [facility] [address] [place] [address] 12 Lead EKG 08/01/24 0838 MR#: [id number] Acct: [id number] Name: FRANK FAIR Rep #: [id number] : 1940 83 From: Michael Martinez MD Attending Dr: Dr. Nahun Diaz MD Status: DIS IN Ordering Dr: Alexis Richardson DO Date: 5 Location: [facility] Sex: F C Admitted: 08/01/24 Test Reason : SOB Blood Pressure : */* mmHG Vent. Rate : 67 BPM Atrial Rate : 67 BPM P-R Int : 172 ms QRS Dur : 168 ms QT Int : 474 ms P-R-T Axes : 50 82 26 degrees QTcB Int : 500 ms Normal sinus rhythm Right bundle branch block Abnormal ECG Confirmed by MICHAEL MARTINEZ ([id number]), web editor CHIKIS LOUIE ([id number]) on 08/06/2024 8:06:11 AM Referred By: Confirmed By: MICHAEL MARTINEZ 08/06/24 08 Date Michael Martinez MD CC: Dr. Alexis Richardson DO; Dr. Nahun Diaz MD; Dr. Pam Mcgill MD Signed Normal [facility] Absolute lymphocyte countOrd ered By: Alexis Richardson on 08-01-2024 Lymphocytes Auto (Unsp spec) [#/Vol] 1.17 10*3/uL 0.83-4.51 [facility] Absolute neutrophil countOrd ered By: Alexis Richardson on 08-01-2024 Neutrophils (Bld) [#/Vol] 4.2 10*3/uL 2.0-7.7 [facility] Anion gap in Serum or Plasma Ordered By: Alexis Richardson on 08-01-2024 Anion gap [Moles/Vol] 14 mmol/L 5-15 [facility] Automated lymphocyte count a s percentage of total leukocytesOrdered By: Alexis Richardson on 08-01-2024 Lymphocytes/100 WBC Auto (Unsp spec) 18.8 % Low 19-41 [facility] BUN/creatinine ratioOrdered By: Alexis Richardson on 08-01-2024 Urea nitrogen/Creatinine [Mass ratio] 13.8 mg/mg 10-20 [facility] Basic Metabolic Profile (BMP )on 08-01-2024 BUN/CRE 13.8 RATIO Normal - [facility] Comment on above: Performed By: #### L 300.8000, L503.7505, L500.2500, L100.0100 #### [facility] [address] [place], [address] Calcium [Mass/Vol] 10.2 mg/dL Normal 7.6-11.0 [facility] Comment on above: Performed By: #### L 300.8000, L503.7505, L500.2500, L100.0100 #### [facility] [address] [place], [address] Chloride [Moles/Vol] 103 mmol/L Normal 98-108 [facility] Comment on above: Performed By: #### L 300.8000, L503.7505, L500.2500, L100.0100 #### [facility] [address] [place], [address] CO2 [Moles/Vol] 26.1 mmol/L Normal 21.0-32.0 [facility] Comment on above: Performed By: #### L 300.8000, L503.7505, L500.2500, L100.0100 #### [facility] [address] [place], [address] Creatinine [Mass/Vol] 0.96 mg/dL Normal 0.70-1.20 [facility] Comment on above: Performed By: #### L 300.8000, L503.7505, L500.2500, L100.0100 #### [facility] [address] [place], [address] ECRCL 47.52 ml/min Low 50-250 [facility] Comment on above: Performed By: #### L 300.8000, L503.7505, L500.2500, L100.0100 #### [facility] [address] [place], [address] GAP 14 Normal 5-15 [facility] Comment on above: Performed By: #### L 300.8000, L503.7505, L500.2500, L100.0100 #### [facility] [address] [place], [address] GFR/1.73 sq M.predicted among non-blacks MDRD (S/P/Bld) [Vol rate/Area] 59 mL/min/{1.73_m2} Low >60 [facility] Comment on above: Result Comment: mL/m in/1.73m2 CKD-EPI Creatinine Equation (2020) Performed By: #### L 300.8000, L503.7505, L500.2500, L100.0100 #### [facility] [address] [place], [address] Glucose [Mass/Vol] 117 mg/dL High 70-99 [facility] Comment on above: Performed By: #### L 300.8000, L503.7505, L500.2500, L100.0100 #### [facility] [address] [place], [address] Potassium [Moles/Vol] 3.0 mmol/L Low 3.3-5.1 [facility] Comment on above: Performed By: #### L 300.8000, L503.7505, L500.2500, L100.0100 #### [facility] [address] [place], [address] Sodium [Moles/Vol] 144 mmol/L Normal 133-145 [facility] Comment on above: Performed By: #### L 300.8000, L503.7505, L500.2500, L100.0100 #### [facility] [address] [place], [address] Urea nitrogen [Mass/Vol] 13 mg/dL Normal 4-19 [facility] Comment on above: Performed By: #### L 300.8000, L503.7505, L500.2500, L100.0100 #### [facility] [address] [place], [address] Basophil percentageOrdered B y: Alexis Richardson on 08-01-2024 Basophils/100 WBC (Bld) 0.6 % 0-1 [facility] CBC W/Diff, Automatedon 07-06 Absolute Lymph 1.17 X10 3/uL Normal 0.83-4.51 [facility] Comment on above: Performed By: #### L 300.8000, L503.7505, L500.2500, L100.0100 #### [facility] [address] [place], [address] Absolute Neut 4.2 X10 3/uL Normal 2.0-7.7 [facility] Comment on above: Performed By: #### L 300.8000, L503.7505, L500.2500, L100.0100 #### [facility] [address] [place], [address] Basophils/100 WBC (Bld) 0.6 % Normal 0-1 [facility] Comment on above: Performed By: #### L 300.8000, L503.7505, L500.2500, L100.0100 #### [facility] [address] [place], [address] Eosinophils/100 WBC (Bld) 1.8 % Normal 0-5 [facility] Comment on above: Performed By: #### L 300.8000, L503.7505, L500.2500, L100.0100 #### [facility] [address] [place], [address] Erythrocyte distribution width (RBC) [Ratio] 15.0 % High 11.6-14.6 [facility] Comment on above: Performed By: #### L 300.8000, L503.7505, L500.2500, L100.0100 #### [facility] [address] [place], [address] Hematocrit (Bld) [Volume fraction] 36.6 % Low 37-47 [facility] Comment on above: Performed By: #### L 300.8000, L503.7505, L500.2500, L100.0100 #### [facility] [address] [place], [address] Hemoglobin (Bld) [Mass/Vol] 11.7 g/dL Low 12.0-15.0 [facility] Comment on above: Performed By: #### L 300.8000, L503.7505, L500.2500, L100.0100 #### [facility] [address] [place], [address] IG% 0.500 Normal 0.0-0.9 [facility] Comment on above: Result Comment: IG% - Immature Granulocytes (promyelocytes, myelocytes and metamyelocytes) > 1% indicates that a LEFT SHIFT is Present. Performed By: #### L 300.8000, L503.7505, L500.2500, L100.0100 #### [facility] [address] [place], [address] Lymphocytes/100 WBC (Bld) 18.8 % Low 19-41 [facility] Comment on above: Performed By: #### L 300.8000, L503.7505, L500.2500, L100.0100 #### [facility] [address] [place], [address] MCH (RBC) [Entitic mass] 27.8 pg Normal 27.0-32.0 [facility] Comment on above: Performed By: #### L 300.8000, L503.7505, L500.2500, L100.0100 #### [facility] [address] [place], [address] MCHC (RBC) [Mass/Vol] 32.0 g/dL Normal 32-36 [facility] [facility] Comment on above: Performed By: #### L 300.8000, L503.7505, L500.2500, L100.0100 #### [facility] [address] [place], [address] MCV (RBC) [Entitic vol] 86.9 fL Normal 81-99 [facility] Comment on above: Performed By: #### L 300.8000, L503.7505, L500.2500, L100.0100 #### [facility] [address] [place], [address] Monocytes/100 WBC (Bld) 10.1 % High 0-10 [facility] Comment on above: Performed By: #### L 300.8000, L503.7505, L500.2500, L100.0100 #### [facility] [address] [place], [address] Neutrophils/100 WBC (Bld) 68.2 % Normal 47-70 [facility] Comment on above: Performed By: #### L 300.8000, L503.7505, L500.2500, L100.0100 #### [facility] [address] [place], [address] Nucleated RBC (Bld) [#/Vol] 0 10*3/uL Normal 0-5 [facility] Comment on above: Performed By: #### L 300.8000, L503.7505, L500.2500, L100.0100 #### [facility] [address] [place], [address] Platelet mean volume (Bld) [Entitic vol] 11.4 fL Normal 6.2-12.0 [facility] Comment on above: Performed By: #### L 300.8000, L503.7505, L500.2500, L100.0100 #### [facility] [address] [place], [address] Platelets (Bld) [#/Vol] 197 10*3/uL Normal 150-450 [facility] Comment on above: Performed By: #### L 300.8000, L503.7505, L500.2500, L100.0100 #### [facility] [address] [place], [address] RBC (Bld) [#/Vol] 4.21 10*6/uL Normal 4.2-5.4 [facility] Comment on above: Performed By: #### L 300.8000, L503.7505, L500.2500, L100.0100 #### [facility] [address] [place], [address] RDW SD 47.7 fl High 35.1-43.9 [facility] Comment on above: Performed By: #### L 300.8000, L503.7505, L500.2500, L100.0100 #### [facility] [address] [place], [address] WBC (Bld) [#/Vol] 6.2 10*3/uL Normal 4.4-11.0 [facility] Comment on above: Performed By: #### L 300.8000, L503.7505, L500.2500, L100.0100 #### [facility] [address] [place], [address] Carbon dioxide, total [Moles /volume] in Central venous bloodOrdered By: Alexis Richardson on 08-01-2024 CO2 [Moles/Vol] 26.1 mmol/L 21.0-32.0 [facility] Chest PA and Lateralon 08-01 Chest PA and Lateral [facility] Imaging Services [address] [place] [address] Chest PA and Lateral MR#: [id number] Acct: [id number] Name: FRANK FAIR Rep #: [id number] : 1940 F 83 From: Justin ortiz MD PCP: Dr. Pam Mcgill MD Status: REG ER Study: Chest PA and Lateral Date of Exam: 08/01/24 Exam# [id number] Ordering Dr: Alexis Richardson DO PROCEDURE: CHEST PA AND LATERAL 08/01/2024 REASON FOR EXAM: SHORTNESS OF BREATH TECHNIQUE: Frontal and lateral views of the chest. COMPARISON: July 05, 2024. FINDINGS: Hardware: EKG electrodes are seen. Heart: Heart size is moderately enlarged. Atherosclerotic calcification of the aortic arch. Mediastinum: The mediastinal contour is unremarkable. Lungs: Vascular congestion and mild CHF. Blunting of both costophrenic angles worse on the left side with bibasilar atelectasis. Bones: Degenerative changes are identified within the thoracic spine. RAD/Chest PA and Lateral IMPRESSION: Cardiomegaly and CHF with bibasilar atelectasis and blunting of both costophrenic angles worse at the left lung base. Reading Location: [facility]- CC: Dr. Alexis Richardson DO; Dr. Pam Mcgill MD Retail Department Supervisor: Signed Normal [facility] Chloride assayOrdered By: Kendell Richardson on 08-01-2024 Chloride [Moles/Vol] 103 mmol/L 98-108 [facility] D-Dimer Quantitative (DVT/PE )on 08-01-2024 D-DIMER QUANT 0.56 FEU/ug/m Invalid Interpretation Code 0.27-0.49 [facility] Comment on above: Result Comment: CRIT ICAL VALUE CALLED TO OSCAR COLLIER 08/01/24 0945 Brigitte Boss. RESULTS READ BACK BY SAME. D-Dimer ELEVATED (>0.49): Additional studies and clinical assessments are indicated to conclude diagnosis of: Deep Vein Thrombosis (DVT) or Pulmonary Embolism (PE) Performed By: #### L 300.8000, L503.7505, L500.2500, L100.0100 #### [facility] [address] [place], [address] Echo Complete W/ Contraston 08-01-2024 Echo Complete W/ Contrast [facility] Cardiovascular Services [address] [place] [address] Echo Complete W/ Contrast 08/01/24 1355 MR#: [id number] Acct: [id number] Name: FRANK FAIR Rep #: [id number] : 1940 83 From: Michael Martinez MD Attending Dr: Dr. Nahun Diaz MD Status: ADM IN Ordering Dr: Nahun Diaz MD Date: 08/01/24 Location: [facility] Sex: F C Admitted: 08/01/24 Reason For Study Reason For Study: CHF Procedure This was a 2D Doppler, Color Flow transthoracic echocardiogram. The study was technically difficult. Exam performed portable in patient room. Left Ventricle Normal left ventricle. The estimated ejection fraction is 55-60 %. Right Ventricle Normal right ventricle. Atria The left atrium is mildly enlarged. Normal right atrium. Mitral Valve Mild (1+) mitral valve insufficiency. Tricuspid Valve Normal tricuspid valve. Aortic Valve Bioprosthetic aortic valve With mild aortic stenosis Maximum pressure gradient of 31 mmHg With a mean pressure gradient of 16.5 mmHg Color-flow and Doppler revealed moderate aortic regurgitation. Pulmonic Valve The pulmonic valve is not well visualized. Great Vessels The aortic root is not well visualized. Pericardium/Pleural No pericardial effusion. Medication Diluted definity 1ml given slow IV push to enhance endocardial definition. MMode/2D Measurements Calculations LVIDd: 5.0 cm IVSd: 1.1 cm LVOT diam: 1.8 cm LVIDs: 3.7 cm LVPWd: 1.5 cm RVDd: 3.4 cm FS: 25.4 % LVOT area: 2.6 cm2 Ao root diam: 3.3 cm LAV(MOD-bp): 80.7 ml LVAd ap4: 42.5 cm2 LAV(MOD-bp) Indexed: 42.3 ml/m2 LVLd ap4: 8.1 cm LAV(MOD-sp2): 80.9 ml EDV(MOD-sp4): 179.3 ml LAV(MOD-sp4): 76.6 ml EDV(sp4-el): 188.9 ml LVAs ap4: 23.2 cm2 LVLs ap4: 6.5 cm ESV(MOD-sp4): 68.0 ml ESV(sp4-el): 70.4 ml EF(MOD-sp4): 62.1 % EF(sp4-el): 62.7 % SV(MOD-sp4): 111.3 ml SV(sp4-el): 118.5 ml LA A4 area: 23.9 cm2 SI(MOD-sp4): 58.4 ml/m2 LA dimension(2D): 4.5 cm RA A4 area: 20.4 cm2 Time Measurements MV dec time: 0.16 sec Doppler Measurements Calculations MV E max dada: 120.7 cm/sec Lat Peak E' Dada: 9.9 cm/sec Med Peak E' Dada: 7.1 cm/sec MV A max dada: 55.5 cm/sec E/E' lat: 12.2 E/E' med: 17.0 MV E/A: 2.2 MV V2 max: 132.4 cm/sec MV P1/2t max dada: 132.0 cm/sec Ao V2 max: 281.2 cm/sec MV max P.0 mmHg MV P1/2t: 62.8 msec Ao max P.7 mmHg MV V2 mean: 62.4 cm/sec MV dec slope: 615.8 cm/sec2 Ao V2 mean: 164.1 cm/sec MV mean P.0 mmHg MVA(P1/2t): 3.5 cm2 Ao mean P.5 mmHg MV V2 VTI: 33.6 cm Ao V2 VTI: 70.3 cm MVA(VTI): 3.2 cm2 AV (velocity ratio): 0.59 AVELINO(I,D): 1.5 cm2 AVELINO(V,D): 1.4 cm2 AI max dada: 418.3 cm/sec LV V1 max: 155.8 cm/sec MR max dada: 517.7 cm/sec AI max P.2 mmHg LV V1 max P.7 mmHg MR max P.2 mmHg LV V1 mean P.2 mmHg AI dec slope: 482.3 cm/sec2 LV V1 mean: 105.2 cm/sec AI P1/2t: 254.1 msec LV V1 VTI: 41.8 cm SV(LVOT): 107.8 ml PA V2 max: 90.0 cm/sec TR max dada: 340.9 cm/sec TR max P.5 mmHg ECHO/Echo Complete W/ Contrast Interpretation Summary The estimated ejection fraction is 55-60 %. Bioprosthetic aortic valve With mild aortic stenosis Maximum pressure gradient of 31 mmHg With a mean pressure gradient of 16.5 mmHg Color-flow and Doppler revealed moderate aortic regurgitation Mild MR Trivial tricuspid regurgitation. Ordering Physician: Nahun Diaz Performed By: Alexis Carter RCS 08/01/241758 Date Michael Martinez MD CC: Dr. Nahun Diaz MD; Dr. Pam Mcgill MD Date Dictated: 08/01/241354 Date Transcribed: 08/01/241758 Retail Department Supervisor: Signed Normal [facility] Echocardiogram study reportO rdered By: Michael Martinez on 08-01-2024 Study report [facility] Services [address] [place] [address] Echo Complete W/ Contrast 08/01/241354 MR#: [id number] Acct: [id number] Name: FRANK FAIR Rep #:[id number] : 1940 83 From: Michael Martinez MD Attending Dr: Dr. Nahun Diaz MD Status: ADM IN Ordering Dr: Nahun Diaz MD Date: Location: [facility] Sex: F C Admitted: 08/01/24 Reason For Study Reason For Study: CHF Procedure This was a 2D Doppler, Color Flow transthoracic echocardiogram. The study was technically difficult. Exam performed portable in patient room. Left Ventricle Normal left ventricle. The estimated ejection fraction is 55-60 %. Right Ventricle Normal right ventricle. Atria The left atrium is mildly enlarged. Normal right atrium. Mitral Valve Mild (1+) mitral valve insufficiency. Tricuspid Valve Normal tricuspid valve. Aortic Valve Bioprosthetic aortic valve With mild aortic stenosis Maximum pressure gradient of 31 mmHg With a mean pressure gradient of 16.5 mmHg Color-flow and Doppler revealed moderate aortic regurgitation. Pulmonic Valve The pulmonic valve is not well visualized. Great Vessels The aortic root is not well visualized. Pericardium/Pleural No pericardial effusion. Medication Diluted definity 1ml given slow IV push to enhance endocardial definition. MMode/2D Measurements & Calculations LVIDd: 5.0 cm IVSd: 1.1 cm LVOT diam: 1.8 cm LVIDs: 3.7 cm LVPWd: 1.5 cm RVDd: 3.4 cm FS: 25.4 % LVOT area: 2.6 cm2 Ao root diam: 3.3 cm LAV(MOD-bp): 80.7 ml LVAd ap4: 42.5 cm2 LAV(MOD-bp) Indexed: 42.3 ml/m2 LVLd ap4: 8.1 cm LAV(MOD-sp2): 80.9 ml EDV(MOD-sp4): 179.3 ml LAV(MOD-sp4): 76.6 ml EDV(sp4-el): 188.9 ml LVAs ap4: 23.2 cm2 LVLs ap4: 6.5 cm ESV(MOD-sp4): 68.0 ml ESV(sp4-el): 70.4 ml EF(MOD-sp4): 62.1 % EF(sp4-el): 62.7 % SV(MOD-sp4): 111.3 ml SV(sp4-el): 118.5 ml LA A4 area: 23.9 cm2 SI(MOD-sp4): 58.4 ml/m2 ___ LA dimension(2D): 4.5 cm RA A4 area: 20.4 cm2 Time Measurements MV dec time: 0.16 sec Doppler Measurements & Calculations MV E max dada: 120.7 cm/sec Lat Peak E' Dada: 9.9 cm/sec Med Peak E' Dada: 7.1 cm/sec MV A max dada: 55.5 cm/sec E/E' lat: 12.2 E/E' med: 17.0 MV E/A: 2.2 MV V2 max: 132.4 cm/sec MV P1/2t max dada: 132.0 cm/sec Ao V2 max: 281.2 cm/sec MV max P.0 mmHg MV P1/2t: 62.8 msec Ao max P.7 mmHg MV V2 mean: 62.4 cm/sec MV dec slope: 615.8 cm/sec2 Ao V2 mean: 164.1 cm/sec MV mean P.0 mmHg MVA(P1/2t): 3.5 cm2 Ao mean P.5 mmHg MV V2 VTI: 33.6 cm Ao V2 VTI: 70.3 cm MVA(VTI): 3.2 cm2 AV (velocity ratio): 0.59 AVELINO(I,D): 1.5 cm2 AVELINO(V,D): 1.4 cm2 AI max dada: 418.3 cm/sec LV V1 max: 155.8 cm/sec MR max dada: 517.7 cm/sec AI max P.2 mmHg LV V1 max P.7 mmHg MR max P.2 mmHg LV V1 mean P.2 mmHg AI dec slope: 482.3 cm/sec2 LV V1 mean: 105.2 cm/sec AI P1/2t: 254.1 msec LV V1 VTI: 41.8 cm SV(LVOT): 107.8 ml PA V2 max: 90.0 cm/sec TR max dada: 340.9 cm/sec TR max P.5 mmHg ECHO/Echo Complete W/ Contrast Interpretation Summary The estimated ejection fraction is 55-60 %. Bioprosthetic aortic valve With mild aortic stenosis Maximum pressure gradient of 31 mmHg With a mean pressure gradient of 16.5 mmHg Color-flow and Doppler revealed moderate aortic regurgitation Mild MR Trivial tricuspid regurgitation. Ordering Physician: Nahun Diaz Performed By: Alexis Carter RCS 08/01/241758 Date _ Michael Martinez MD CC: Dr. Nahun Diaz MD; Dr. Pam Mcgill MD ~ Date Dictated: 08/01/24 1355 Date Transcribed: 08/01/241758 Retail Department Supervisor: Signed [facility] Work Phone: Emergency Department Summary on 08-01-2024 Emergency Department Summary [facility] Medical Records Department [address] [place] [address] Emergency Department Summary 08/01/24 MR#: [id number] Acct: [id number] Name: FRANK FAIR Rep #: [id number] : 1940 83 From: Alexis Richardson DO PCP: Dr. Pam Mcgill MD Status:ADM IN Location: [place] [address] HPI History of Present Illness Chief Complaint: Shortness of Breath Narrative Narrative: Chief complaint and HPI: Shortness of breath. Chief complaint and HPI: Shortness of breath. 83-year-old female with history of severe aortic stenosis, CAD, history of TAVR, CHF presents for evaluation of shortness of breath. Patient states that she has had continuous shortness of breath since May. States in May she was diagnosed with pneumonia. States she was treated outpatient with antibiotics. Patient states that she has been having increased swelling in her bilateral lower extremities. States she has been taking her home diuretics. She states that she does not check her daily weight however feels like she has gained some. Shortness of breath is worse with exertion and with lying flat. Patient states that she saw her patient support assistant recently and was referred to pulmonology. Pulmonology is concerned about CHF and sent her here to the emergency department to be evaluated for possible IV Lasix. She denies any fever, chills, URI symptoms, chest pain. Denies a history of DVT/PE, blood clotting disorder, recent trauma or surgery, exogenous estrogen use, unilateral leg swelling, known malignancy, travel. Review of systems: See HPI Medications: As listed on the chart Allergies: As listed on the chart PFSH: Per chart Vital signs: As listed on the chart. Reviewed. Physical exam: Gen: A O x3, NAD Head: Normocephalic, atraumatic Eyes: No sclera icterus, conjunctiva clear ENT: Moist mucous membranes Neck: Trachea midline, No JVD CV: RRR, no murmurs, +2 pitting peripheral edema from the feet to the mid calf Resp: Lungs CTA BL but diminished in the bilateral bases, no w/r/c GI: Abd soft, non-distended, non-tender, no r/r/g Musc: Full ROM, no deformity Skin: Warm, dry Neuro: Alert, oriented, grossly intact, sensation intact Psych: Cooperative, appropriate mood and affect [facility] Medical History Nonrheumatic aortic (valve) stenosis Atherosclerosis of coronary artery of [place] heart without angina pectoris Obesity 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rtery with unstable angina pectoris OPHELIA (obstructive sleep apnea) Essential hypertension Fatigue Family history of hypertension Exertional shortness of breath Exertional chest pain Dyspnea on exertion Dizziness and giddiness Hyperlipidemia Carotid bruit Diabetes mellitus Hypokalemia Home Medications ???Medication ???Instructions ???Recorded ???Last Taken ???Type albuterol sulfate 90 mcg/actuation 1 puff inhalation Q4H PRN PRN Unknown History aerosol inhaler Asthma cholecalciferol (vitamin D3) 25 1,000 unit PO DAILY 08/06/1607/31 History mcg (1,000 unit) tablet montelukast 10 mg tablet 10 mg PO DAILY 08/06/16 07/31/24 H istory omega-3 fatty acids-fish oil 300 1 ea PO DAILY 08/06/16 07/31/24 Hi story mg-1,000 mg capsule vitamin A 2,400 mcg capsule 8,000 unit PO DAILY 08/06/16 Unkno wn History vitamin E mixed 1,000 unit capsule 1,000 unit PO DAILY 08/06/16 Unk nown History multivitamin 1 tab PO DAILY 02/16/17 07/28/24 H istory aspirin 81 mg tablet,delayed 81 mg PO DAILY@0800 #90 tabs 02/1108/01/24 Rx release zinc gluconate 50 mg tablet 50 mg PO DAILY 02/11/22 Unknown Hi story lisinopril 40 mg tablet 40 mg PO DAILY #90 tabs 01/26/24 0 08/01/24 Rx ezetimibe 10 mg tablet (Zetia) 10 mg PO DAILY #90 tabs 04/12/24 0 08/01/24 Rx furosemide 40 mg tablet 40 mg PO DAILY #90 tabs 04/12/24 0 08/01/24 Rx cetirizine 10 mg tablet 10 mg PO QDAY PRN allergy symptoms 04/17/24 07/31/24 History magnesium 250 mg tablet 250 mg PO DAILY 04/17/24 07/31/24 History rosuvastatin 5 mg tablet 5 mg PO DAILY 04/17/24 07/30/24 Hi story diphenhydramine HCl 25 mg capsule 25 mg PO QHS PRN allergic reactio n 07/05/24 07/31/24 History (Benadryl) fluticasone propionate 50 2 spray intranasal DAILY PRN 07/0508/01/24 History mcg/actuation nasal allergy symptoms spray,suspension (Flonase Allergy Relief) levothyroxine 137 mcg tablet 137 mcg PO QDAY 07/05/24 08/01/24 History (Synthroid) turmeric root extract 500 mg 500 mg PO QDAY 07/05/24 Unknown Hi story capsule amlodipine 5 mg tablet 5 mg PO DAILY #90 tabs 07/13/24 Rx carvedilol 25 mg tablet 25 mg PO BID #180 tabs 07/31/24 Rx spironolactone 25 mg tablet 25 mg PO DAILY #90 tabs 07/31/24 0 08/01/24 Rx fluticasone propio (more content not included)... Normal [facility] Eosinophil percentageOrdered By: [facility] on 08-01-2024 Eosinophils/100 WBC (Bld) 1.8 % 0-5 [facility] Erythrocyte distribution wid th ratioOrdered By: [facility] on 08-01-2024 Erythrocyte distribution width (RBC) [Ratio] 15.0 % High 11.6-14.6 [facility] Erythrocyte distribution wid th standard deviationOrdered By: [facility] on 08-01-2024 Erythrocyte distribution width (RBC) [Ratio] 47.7 fl High 35.1-43.9 [facility] Glomerular filtration rate ( GFR) estimation/1.73 sq m using serum, plasma, or whole bOrdered By: [facility] on 08-01-2024 GFR/1.73 sq M.predicted among non-blacks MDRD (S/P/Bld) [Vol rate/Area] 59 mL/min/{1.73_m2} Low >60 [facility] Comment on above: mL/min/1.73m2 CKD-EP I Creatinine Equation (2020) H AND P Exam - [facility] 08-01-2024 H&P Exam - Hospitalist [facility] Medical Records Department [address] [place] [address] H P Exam - Hospitalist 08/01/24 1159 MR#: [id number] Acct: [id number] Name: FRANK FAIR Rep #: [id number] : 1940 83 From: Nahun Diaz MD PCP: Dr. Pam Mcgill MD Status:ADM IN Location: [facility] [id number] HPI - General General Date of Admission: 08/01/24 Date of Service: 08/01/24 Chief Complaint: Shortness of breath HPI Gracie FAIR, is a 83 F with past medical history seen in for coronary artery disease, severe aortic stenosis status post TAVR who presented with progressive shortness of breath. Per patient symptoms have been ongoing for the past couple of months. She reports shortness of breath with minimal activity as well as progressive swelling involving both lower extremities. 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 Imaging studies obtained in the ED demonstrated cardiomegaly and CHF with bibasilar atelectasis and blunting of both costophrenic angles with at the left angle base. Patient was also found to have markedly elevated proBNP. An assessment of acute congestive heart failure made admitted to monitored bed for subsequent management [facility] Medical History Nonrheumatic aortic (valve) stenosis Atherosclerosis of coronary artery of [place] heart without angina pectoris Obesity 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rtery with unstable angina pectoris OPHELIA (obstructive sleep apnea) Essential hypertension Fatigue Family history of hypertension Exertional shortness of breath Exertional chest pain Dyspnea on exertion Dizziness and giddiness Hyperlipidemia Carotid bruit Diabetes mellitus Hypokalemia Home Medications ???Medication ???Instructions ???Recorded ???Last Taken ???Type albuterol sulfate 90 mcg/actuation 1 puff inhalation Q4H PRN PRN Unknown History aerosol inhaler Asthma cholecalciferol (vitamin D3) 25 1,000 unit PO DAILY 08/06/1607/31 History mcg (1,000 unit) tablet montelukast 10 mg tablet 10 mg PO DAILY 08/06/16 07/31/24 H istory omega-3 fatty acids-fish oil 300 1 ea PO DAILY 08/06/16 07/31/24 Hi story mg-1,000 mg capsule vitamin A 2,400 mcg capsule 8,000 unit PO DAILY 08/06/16 Unkno wn History vitamin E mixed 1,000 unit capsule 1,000 unit PO DAILY 08/06/16 Unk nown History multivitamin 1 tab PO DAILY 02/16/17 07/28/24 H istory aspirin 81 mg tablet,delayed 81 mg PO DAILY@0800 #90 tabs 02/1108/01/24 Rx release zinc gluconate 50 mg tablet 50 mg PO DAILY 02/11/22 Unknown Hi story lisinopril 40 mg tablet 40 mg PO DAILY #90 tabs 01/26/24 0 08/01/24 Rx ezetimibe 10 mg tablet (Zetia) 10 mg PO DAILY #90 tabs 04/12/24 0 08/01/24 Rx furosemide 40 mg tablet 40 mg PO DAILY #90 tabs 04/12/24 0 08/01/24 Rx cetirizine 10 mg tablet 10 mg PO QDAY PRN allergy symptoms 04/17/24 07/31/24 History magnesium 250 mg tablet 250 mg PO DAILY 04/17/24 07/31/24 History rosuvastatin 5 mg tablet 5 mg PO DAILY 04/17/24 07/30/24 Hi story diphenhydramine HCl 25 mg capsule 25 mg PO QHS PRN allergic reactio n 07/05/24 07/31/24 History (Benadryl) fluticasone propionate 50 2 spray intranasal DAILY PRN 07/0508/01/24 History mcg/actuation nasal allergy symptoms spray,suspension (Flonase Allergy Relief) levothyroxine 137 mcg tablet 137 mcg PO QDAY 07/05/24 08/01/24 History (Synthroid) turmeric root extract 500 mg 500 mg PO QDAY 07/05/24 Unknown Hi story capsule amlodipine 5 mg tablet 5 mg PO DAILY #90 tabs 07/13/24 Rx carvedilol 25 mg tablet 25 mg PO BID #180 tabs 07/31/24 Rx spironolactone 25 mg tablet 25 mg PO DAILY #90 tabs 07/31/24 0 08/01/24 Rx fluticasone propionate 115 2 puff inhalation BID 08/01/24 History mcg-salmeterol 21 mcg/actuation HFA inhaler (Advair HFA) Allergy/AdvReac Type Severity Reaction Status Date / Time Environmental Allergies: Allergy Anaphylaxis Verified 08/01/24 08:22 Uncoded rosuvastatin (From Crestor) AdvReac Intermediate Myalgias Verified 08/01/24 08:22 nifedipine AdvReac Unknown Verified 08/01/24 08:22 simvastatin (From Zocor) AdvReac Myalgias Verified 08/01/24 08:22 Family History Father , age 70 Colon cancer Mother , age 67 CAD (coronary artery disease) Hypertension Brother , age 59 CAD (coronary artery disease) Hypertension Brother Hypertension Diabetes Other Family history of hypertension Surgical History History of left heart catheterization (08/09/16) History of parathyroid surgery (02/2002) (more content not included)... Normal [facility] Hematocrit Auto (Bld) [Volum e fraction]Ordered By: [facility] on 08-01-2024 Hematocrit (Bld) [Volume fraction] 36.6 % Low 37-47 [facility] Hemoglobin measurementOrdere d By: [facility] on 08-01-2024 Hemoglobin (Bld) [Mass/Vol] 11.7 g/dL Low 12.0-15.0 [facility] Immature granulocytes/100 WB C Auto (Bld)Ordered By: [facility] on 08-01-2024 Immature granulocytes/100 WBC (Bld) 0.500 % 0.0-0.9 [facility] Comment on above: IG% - Immature Granu locytes (promyelocytes, myelocytes and metamyelocytes) > 1% indicates that a LEFT SHIFT is Present. L499.0042on 08-01-2024 Trop T High Sen 23 ng/L High <=14 [facility] Comment on above: Performed By: #### L 499.0042 #### [facility] [address] [place], [address] L501.4021on 08-01-2024 Trop T High Sen 23 ng/L High <=14 [facility] Comment on above: Performed By: #### L 300.8000, L503.7505, L500.2500, L100.0100 #### [facility] [address] [place], [address] L503.7505on 08-01-2024 Natriuretic peptide B (Bld) [Mass/Vol] 2361 pg/mL High <=1800 [facility] Comment on above: Result Comment: Hear t Failure Unlikely: < 300 pg/mL Heart Failure Likely < 50 Years: > 450 pg/mL 50-75 Years: > 900 pg/mL >75 Years: > 1800 pg/mL Performed By: #### L 300.8000, L503.7505, L500.2500, L100.0100 #### [facility] [address] [place], [address] MCV (mean corpuscular volume ) determinationOrdered By: Alexis Richardson on 08-01-2024 MCV (RBC) [Entitic vol] 86.9 fL 81-99 [facility] Magnesiumon 08-01-2024 Magnesium [Mass/Vol] 1.8 mg/dL Normal 1.5-2.2 [facility] Comment on above: Performed By: #### L 500.2500, L100.0100 #### [facility] [address] [place], [place], [address] Magnesium measurement (mass/ volume)Ordered By: Alexis Richardson on 08-01-2024 Magnesium (Unsp spec) [Mass/Vol] 1.8 mg/dL 1.5-2.2 [facility] Mean corpuscular hemoglobin (MCH) determinationOrdered By: Alexis Richardson on 08-01-2024 MCH (RBC) [Entitic mass] 27.8 pg 27.0-32.0 [facility] Mean corpuscular hemoglobin concentration (MCHC) determinationOrdered By: Alexis Richardson on 08-01-2024 MCHC (RBC) [Mass/Vol] 32.0 g/dL 32-36 [facility] Mean platelet volume determi nationOrdered By: Alexis Richardson on 08-01-2024 Platelet mean volume (Bld) [Entitic vol] 11.4 fL 6.2-12.0 [facility] Monocyte percentageOrdered B y: Alexis Richardson on 08-01-2024 Monocytes/100 WBC (Bld) 10.1 % High 0-10 [facility] Natriuretic peptide.B prohor jose r N-Terminal [Mass/volume] in Serum or PlasmaOrdered By: Alexis Richardson on 08-01-2024 Natriuretic peptide.B prohormone N-Terminal [Mass/Vol] 2361 pg/mL High <1800 [facility] Comment on above: Heart Failure Unlike ly: < 300 pg/mLHeart Failure Likely< 50 Years: > 450 pg/mL50-75 Years: > 900 pg/mL>75 Years: > 1800 pg/mL Neutrophil percentageOrdered By: Alexis Richardson on 08-01-2024 Neutrophils/100 WBC (Bld) 68.2 % 47-70 [facility] Nucleated red blood cell per centageOrdered By: Alexis Richardson on 08-01-2024 Nucleated RBC/100 WBC (Bld) [Ratio] 0 % 0-5 [facility] Platelet countOrdered By: Kendell Richardson on 08-01-2024 Platelets (Bld) [#/Vol] 197 10*3/uL 150-450 [facility] Potassium measurement (mass/ volume)Ordered By: Alexis Richardson on 08-01-2024 Potassium (Unsp spec) [Mass/Vol] 3.0 mmol/L Low 3.3-5.1 [facility] RBC Auto (Bld) [#/Vol]Ordere d By: Alexis Richardson on 08-01-2024 RBC (Bld) [#/Vol] 4.21 10*6/uL 4.2-5.4 [facility] Serum creatinine measurement (mass/volume)Ordered By: Alexis Richardson on 08-01-2024 Creatinine [Mass/Vol] 0.96 mg/dL 0.70-1.20 [facility] Serum glucose measurement (m ass/volume)Ordered By: Alexis Richardson on 08-01-2024 Glucose [Mass/Vol] 117 mg/dL High 70-99 [facility] Serum or plasma calcium piedad urement (mass/volume)Ordered By: Alexis Saeed on 08-01-2024 Calcium [Mass/Vol] 10.2 mg/dL 7.6-11.0 [facility] Serum or plasma urea nitroge n measurement (mass/volume)Ordered By: Alexis Richardson on 08-01-2024 Urea nitrogen [Mass/Vol] 13 mg/dL 4-19 [facility] Sodium levelOrdered By: Harish Richardson on 08-01-2024 Sodium [Moles/Vol] 144 mmol/L 133-145 [facility] Troponin T.cardiac [Mass/vol ume] in Serum or Plasma by High sensitivity methodOrdered By: Alexis Richardson on 08-01-2024 Troponin T.cardiac High sensitivity method [Mass/Vol] 23 ng/L High <14 [facility] Troponin T.cardiac High sensitivity method [Mass/Vol] 23 ng/L High <14 [facility] White blood cell (WBC) count Ordered By: Alexis Richardson on 08-01-2024 WBC (Bld) [#/Vol] 6.2 10*3/uL 4.4-11.0 [facility] CNPNon 07-31-2024 [facility]ARR[facility] Telephone (STEVENSON) JARRED FAIR ([id number]) 1940 F NFR Date Time Provider Department 07/31/24 MARIYA MCADAMS During your visit today, we recorded the following information about you: Veronica Chawla, SCIENCE TUTOR 07/31/2024 4:00 PM Signed Patient calling c/o O2 saturations is dropping in the mornings. Patient stated that her oxygen levels are 80-81 when she wakes up. Near lunch O2 sats go up to high 80's then after lunch in the 90's. Patient doses use her CPAP machine every night. That machine comes from [facility]. Pharmacy is [email or web address]. Patient does have inahlers, no nebulizers. Patient is wanting to know if she is needing oxygen for the bedtime? Please review and advise further. MARIBELL Chapman Kathleen, LPN 07/31/2024 4:19 PM Signed Per 07/20 TC with EB- Patient's recent CXR on 07/20 consistent with CHF and BNP >1900. She did not contact cardiology until today,. Advised patient her low O2 sats could be related to CHF and are not consistent with typical nocturnal hypoxemia. I advised she be evaluated in the emergency department. MARIBELL Randhawa Kathleen, LPN 08/01/2024 2:35 PM Signed Patient admitted to [facility] Isabell Diaz LPN Allergies As of Date: 07/31/2024 Noted Allergy Reaction FRAGRANCES 12/05/2018 14 - Other: See Comments SIMVASTATIN 06/05/2010 14 - Other: See Comments 17 - Myalgia Comments: Includes rosuvastatin 5mg tried M/W/F JELLY BEANS 06/28/2006 Comments: Throat got real tight and cough could not breath NIFEDIPINE 01/15/2002 Comments: hypotensive, light headed PERFUME 02/01/2023 16 - Unknown SMOKE 02/01/2023 16 - Unknown VINEGAR 02/01/2023 16 - Unknown Date Reviewed: 07/19/2024 Reviewed by: Mariya Mcadams MD - Fully Assessed Reason for Visit: Patient Question [7259] Cmt: does patient need oxygen for bedtime? Prescriptions as of 08/01/2024 - spironolactone (ALDACTONE) 25 mg tablet Take 25 mg by mouth once daily. - fluticasone-salmeterol HFA (ADVAIR HFA) 115-21 mcg/actuation inhaler Inhale 2 puffs as instructed two times a day. - carvedilol (COREG) 25 mg tablet Take 25 mg by mouth two times a day with meals. - levothyroxine (SYNTHROID) 137 mcg tablet Take 1 tablet by mouth daily before breakfast. Plus add half pill on Sundays (total 7.5 pills taken per week) - albuterol HFA (VENTOLIN HFA) 90 mcg/actuation inhaler Inhale 2 Puffs as instructed every 4 hours as needed. - montelukast (SINGULAIR) 10 mg tablet Take 1 tablet by mouth once daily. As directed - CPAP Continue CPAP at 9cm H2O with humidification. Refills for Mask (per patient preference) optional chin strap (if indicated) , filters, tubing, humidifier and lifetime supplies. G47.33 - rosuvastatin (CRESTOR) 5 mg tablet Take 1 tablet by mouth two times a week. - Miscellaneous Medical Supply Potassium OTC 1 capsule once daily - Magnesium 250 mg tab Take 250 mg by mouth once daily. - TURMERIC ORAL Take 1 Dose by mouth two times a day. 1 gummie twice daily - ZINC ORAL Take 1 Dose by mouth two times a day. 1 gummi two times daily - ezetimibe (ZETIA) 10 mg tablet Take 10 mg by mouth once daily. 5 days a week - fluticasone (FLONASE) 50 mcg/actuation nasal spray Use 2 Sprays in each nostril once daily as needed for cold/allergy symptoms. Rinse mouth after use. - clobetasol (TEMOVATE) 0.05 % ointment - amLODIPine (NORVASC) 10 mg tablet Take 1 tablet by mouth once daily. (Dr. Olguin) - ubidecarenone (CO Q-10 ORAL) Take by mouth once daily. - lisinopril (ZESTRIL, PRINIVIL) 40 mg tablet Take 1 tablet by mouth once daily. - Multivitamin capsule Take 1 capsule by mouth once daily. - furosemide (LASIX) 40 mg tablet Take 40 mg by mouth once daily. - vitamin e 1,000 unit capsule Take 1,000 Units by mouth once daily. - BIOTIN ORAL Take by mouth. - VITAMIN A PALMITATE ORAL Take by mouth. - Cetirizine 10 mg cap Take by mouth. - Cholecalciferol, Vitamin D3, 1,000 unit cap Take 1 capsule by mouth once daily. - aspirin, enteric coated (ASPIRIN, ENTERIC COATED) 81 mg EC tablet Take 1 tablet by mouth once daily. - COMPOUNDED PRESCRIPTION CPAP head gear Diagnosis :OPHELIA 327.23 - OMEGA-3 FATTY ACIDS-FISH OIL 300 MG-1,000 MG CAP Take one(1) tablet daily. - diphenhydramine hcl(BENADRYL 25 MG CAP) Take one(1) tablet daily at bedtime as necessary (uses 5-6 x's a week) Problem List As Of Date 07/31/2024 Noted Resolved History of primary hyperparathyroidism [Z86.39] 01/15/2002 Coronary atherosclerosis [I25.10] 02/15/2002 Hyperlipidemia [E78.5] 02/15/2002 History of asthma [Z87.09] Allergic Rhinitis, Cause Unspecified [J30.9] BONE AND CARTILAGE DIS NOS [M89.9, M94.9] Class 3 severe obesity due to excess calories w* DISEASE OF PHARYNX NEC [J39.2] Pure Hyperglyceridemia [E78.1] 10/09/2009 Hypothyroidism [E03.9] ASCVD [I25.10] Primary hyperten (more content not included)... Normal [facility] CNPNon 07-20-2024 CNPN Telephone (PULMWS) JARRED FAIR ([id number]) 1940 F NFR Date Time Provider Department 07/20/24 MARIYA MCADAMS PULWS During your visit today, we recorded the following information about you: Mariya Mcadams MD 07/20/2024 12:07 PM Signed Spoke with Jarred regarding recent testing and chest x-ray. Findings consistent with mild CHF. Patient is already on 40 of Lasix daily. Recommended she contact her patient support assistant for medication adjustment. Allergies As of Date: 07/20/2024 Noted Allergy Reaction FRAGRANCES 12/05/2018 14 - Other: See Comments SIMVASTATIN 06/05/2010 14 - Other: See Comments 17 - Myalgia Comments: Includes rosuvastatin 5mg tried M/W/F JELLY BEANS 06/28/2006 Comments: Throat got real tight and cough could not breath NIFEDIPINE 01/15/2002 Comments: hypotensive, light headed PERFUME 02/01/2023 16 - Unknown SMOKE 02/01/2023 16 - Unknown VINEGAR 02/01/2023 16 - Unknown Date Reviewed: 07/19/2024 Reviewed by: Mariya Mcadams MD - Fully Assessed Reason for Visit: Results [95] Prescriptions as of 07/20/2024 - spironolactone (ALDACTONE) 25 mg tablet Take 25 mg by mouth once daily. - fluticasone-salmeterol HFA (ADVAIR HFA) 115-21 mcg/actuation inhaler Inhale 2 puffs as instructed two times a day. - carvedilol (COREG) 25 mg tablet Take 25 mg by mouth two times a day with meals. - levothyroxine (SYNTHROID) 137 mcg tablet Take 1 tablet by mouth daily before breakfast. Plus add half pill on Sundays (total 7.5 pills taken per week) - albuterol HFA (VENTOLIN HFA) 90 mcg/actuation inhaler Inhale 2 Puffs as instructed every 4 hours as needed. - montelukast (SINGULAIR) 10 mg tablet Take 1 tablet by mouth once daily. As directed - CPAP Continue CPAP at 9cm H2O with humidification. Refills for Mask (per patient preference) optional chin strap (if indicated) , filters, tubing, humidifier and lifetime supplies. G47.33 - rosuvastatin (CRESTOR) 5 mg tablet Take 1 tablet by mouth two times a week. - Miscellaneous Medical Supply Potassium OTC 1 capsule once daily - Magnesium 250 mg tab Take 250 mg by mouth once daily. - TURMERIC ORAL Take 1 Dose by mouth two times a day. 1 gummie twice daily - ZINC ORAL Take 1 Dose by mouth two times a day. 1 gummi two times daily - ezetimibe (ZETIA) 10 mg tablet Take 10 mg by mouth once daily. 5 days a week - fluticasone (FLONASE) 50 mcg/actuation nasal spray Use 2 Sprays in each nostril once daily as needed for cold/allergy symptoms. Rinse mouth after use. - clobetasol (TEMOVATE) 0.05 % ointment - amLODIPine (NORVASC) 10 mg tablet Take 1 tablet by mouth once daily. (Dr. Olguin) - ubidecarenone (CO Q-10 ORAL) Take by mouth once daily. - lisinopril (ZESTRIL, PRINIVIL) 40 mg tablet Take 1 tablet by mouth once daily. - Multivitamin capsule Take 1 capsule by mouth once daily. - furosemide (LASIX) 40 mg tablet Take 40 mg by mouth once daily. - vitamin e 1,000 unit capsule Take 1,000 Units by mouth once daily. - BIOTIN ORAL Take by mouth. - VITAMIN A PALMITATE ORAL Take by mouth. - Cetirizine 10 mg cap Take by mouth. - Cholecalciferol, Vitamin D3, 1,000 unit cap Take 1 capsule by mouth once daily. - aspirin, enteric coated (ASPIRIN, ENTERIC COATED) 81 mg EC tablet Take 1 tablet by mouth once daily. - COMPOUNDED PRESCRIPTION CPAP head gear Diagnosis :OPHELIA 327.23 - OMEGA-3 FATTY ACIDS-FISH OIL 300 MG-1,000 MG CAP Take one(1) tablet daily. - diphenhydramine hcl(BENADRYL 25 MG CAP) Take one(1) tablet daily at bedtime as necessary (uses 5-6 x's a week) Problem List As Of Date 07/20/2024 Noted Resolved History of primary hyperparathyroidism [Z86.39] 01/15/2002 Coronary atherosclerosis [I25.10] 02/15/2002 Hyperlipidemia [E78.5] 02/15/2002 History of asthma [Z87.09] Allergic Rhinitis, Cause Unspecified [J30.9] BONE AND CARTILAGE DIS NOS [M89.9, M94.9] Class 3 severe obesity due to excess calories w* DISEASE OF PHARYNX NEC [J39.2] Pure Hyperglyceridemia [E78.1] 10/09/2009 Hypothyroidism [E03.9] ASCVD [I25.10] Primary hypertension [I10] Benign Neoplasm of Colon [D12.6] 06/15/2006 Dysmetabolic syndrome X [E88.810] 06/28/2006 Pain in Joint, Lower Leg [M25.569] 10/22/2008 10/30/2009 Female Stress Incontinence [N39.3] 10/22/2008 Symptomatic Menopausal or Female Climacteric St*10/22/2008 Postmenopausal Atrophic Vaginitis [N95.2] 10/22/2008 Atypical Mole [D22.9] 10/22/2008 11/22/2008 CAP (community acquired pneumonia) [J18.9] 10/30/2009 05/20/2015 Personal history of colonic polyps [Z86.0100] 03/27/2010 Other sleep disturbances [G47.8] 10/28/2010 Bruit [R09.89] 10/28/2010 OPHELIA (obstructive sleep apnea) [G47.33] 02/11/2014 Nonrheumatic aortic insufficiency with aortic s*05/20/2015 Right-sided low back pain with right-sided scia*06/19/2015 Left knee pain [M25.562] 06/19/2015 S/P subtotal parat (more content not included)... Normal [facility] CNOVon 07-19-2024 CNOV Office Visit (PULMWS ) JARRED FAIR ([id number]) 1940 F NFR Date Time Provider Department 07/19/24 8:00 AM MARIYA MCADAMS PULMWS During your visit today, we recorded the following information about you: Pulse Blood pressure Weight 65/minute 161/68 98 kg Mariya Mcadams MD 07/19/2024 9:10 AM Signed . [facility] [place] Note Patient name: Jarred Fair PCP: Pam Mcgill MD Referring Physician: Haily Alvarez CNP Consultation requested by Haily Alvarez for an opinion regarding shortness of breath. My final recommendations will be communicated back to the requesting physician by way of shared Medical record or letter to requesting physician via US mail. CC: Shortness of breath HPI: Jarred Fair 83 year old female non-smoker with PMH significant for morbid obesity, OPHELIA on CPAP, seasonal allergies, HTN, hypothyroidism, history of adult onset asthma being referred for evaluation of shortness of breath. Patient diagnosed with asthma many years ago. She is on albuterol as needed. She has not required controller inhaler therapy. She has never been hospitalized for her asthma. Asthma worsened by upper respiratory infections and allergies. She has never been formally allergy tested as typical symptoms mainly in the fall. Allergy symptoms have been controlled with montelukast. She states she was doing well until May when she developed acute onset of shortness of breath and worsening lower extremity edema. Updated cardiac evaluation via echocardiogram showed normal bioprosthetic aortic valve and normal LV function. She states she was diagnosed with pneumonia, treated with antibiotics without resolution of her symptoms. Initially she had persistent wheezing and a dry cough mainly at night. No fevers, chills, chest pain. Since then her shortness of breath has gotten progressively worse, limiting her activities of daily living. She has had some improvement in her dyspnea with extra Lasix dosing. Pulmonary function testing shows combined restriction and obstruction with normal diffusion corrected for alveolar volume. Compared to pulmonary function testing in 2020, she has had significant reduction in her lung capacity. Patient is obese but denies any recent significant change in her weight. DATA: PFT 06/2024: Pulmonary function test show combined obstruction and restriction. No significant improvement postbronchodilator, reduction in diffusing capacity which corrects for alveolar volume Imaging / Diagnostic Studies: DATE OF EXAM: Jun 13 2024 1:12PM WOX [id number] - XR CHEST 2V FRONTAL/LAT / EXAM DATE/TIME: 06/13/2024 1:12 PM COMPARISON: 05/28/2024 RESULT: Lines, tubes, and devices: None. Lungs and pleura: Small left pleural effusion and basal atelectasis. No consolidation. No lung mass. No pleural effusion. No pneumothorax. Cardiomediastinal silhouette: Stable enlarged cardiomediastinal silhouette. Ascending aortic graft Bones and soft tissues: Unremarkable. IMPRESSION: Small left pleural effusion and basal atelectasis. Cardiomegaly Reviewed chest x-ray shows cardiomegaly with bilateral small pleural effusions Echo 05/2024 [facility]: Normal LV Normal bioprosthetic valve No mention of PAH PAST MEDICAL HISTORY Diagnosis Date Allergic rhinitis, cause unspecified Allergic rhinitis Benign neoplasm of colon Disorder of bone and cartilage, unspecified Dysmetabolic syndrome X 06/28/2006 Started on Januvia by Dr. Toure for DM prevention since did not tolerate metformin Nonrheumatic aortic insufficiency with aortic stenosis Dr. Olguin (patient support assistant). [facility]2016 Obesity, unspecified OPHELIA on CPAP Other diseases of pharynx, not elsewhere classified(478.29) Personal history of colonic polyps Pure hyperglyceridemia Snoring Unspecified asthma(493.90) Unspecified cardiovascular disease AI and some CAD on cath (Clau follows) Unspecified essential hypertension Unspecified hypothyroidism ALLERGIES Allergen Reactions Fragrances Other: See Comments Simvastatin Other: See Comments, Myalgia Includes rosuvastatin 5mg tried M/W/F Jelly Beans Throat got real tight and cough could not breath Nifedipine hypotensive, light headed Perfume Unknown Smoke Unknown Vinegar Unknown spironolactone (ALDACTONE) 25 mg tablet Take 25 mg by mouth once daily. carvedilol (COREG) 25 mg tablet Take 25 mg by mouth two times a day with meals. levothyroxine (SYNTHROID) 137 mcg tablet Take 1 tablet by mouth daily before breakfast. Plus add half pill on Sundays (total 7.5 pills taken per week) albuterol HFA (VENTOLIN HFA) 90 mcg/actuation inhaler Inhale 2 Puffs as instructed every 4 hours as needed. montelukast (SINGULAIR) 10 mg tablet Take 1 tablet by mouth once daily. As directed CPAP Continue CPAP at 9cm H2O with humidificatio (more content not included)... Normal [facility] 07-19-2024 [facility] Telephone (4CQ) JARRED FAIR ([id number]) 1940 F NFR Date Time Provider Department 07/19/24 MARIYA MCADAMS 4CQ During your visit today, we recorded the following information about you: She Marley 07/19/2024 10:31 AM Signed Pt needs prescription changed to [facility] [place] due to [facility] going ouit of business, please advise Yelena Canas MA 07/19/2024 10:48 AM Signed Pended. Allergies As of Date: 07/19/2024 Noted Allergy Reaction FRAGRANCES 12/05/2018 14 - Other: See Comments SIMVASTATIN 06/05/2010 14 - Other: See Comments 17 - Myalgia Comments: Includes rosuvastatin 5mg tried M/W/F JELLY BEANS 06/28/2006 Comments: Throat got real tight and cough could not breath NIFEDIPINE 01/15/2002 Comments: hypotensive, light headed PERFUME 02/01/2023 16 - Unknown SMOKE 02/01/2023 16 - Unknown VINEGAR 02/01/2023 16 - Unknown Date Reviewed: 07/19/2024 Reviewed by: Mariya Mcadams MD - Fully Assessed Reason for Visit: Medication Problem [65] Order(s):fluticasone-s almeterol HFA (ADVAIR HFA) 115-21 mcg/actuation inhalerInhale 2 puffs as instructed two times a day.Disp: 1 eachRfl: 5 Prescriptions as of 07/19/2024 - spironolactone (ALDACTONE) 25 mg tablet Take 25 mg by mouth once daily. - fluticasone-salmeterol HFA (ADVAIR HFA) 115-21 mcg/actuation inhaler Inhale 2 puffs as instructed two times a day. - carvedilol (COREG) 25 mg tablet Take 25 mg by mouth two times a day with meals. - levothyroxine (SYNTHROID) 137 mcg tablet Take 1 tablet by mouth daily before breakfast. Plus add half pill on Sundays (total 7.5 pills taken per week) - albuterol HFA (VENTOLIN HFA) 90 mcg/actuation inhaler Inhale 2 Puffs as instructed every 4 hours as needed. - montelukast (SINGULAIR) 10 mg tablet Take 1 tablet by mouth once daily. As directed - CPAP Continue CPAP at 9cm H2O with humidification. Refills for Mask (per patient preference) optional chin strap (if indicated) , filters, tubing, humidifier and lifetime supplies. G47.33 - rosuvastatin (CRESTOR) 5 mg tablet Take 1 tablet by mouth two times a week. - Miscellaneous Medical Supply Potassium OTC 1 capsule once daily - Magnesium 250 mg tab Take 250 mg by mouth once daily. - TURMERIC ORAL Take 1 Dose by mouth two times a day. 1 gummie twice daily - ZINC ORAL Take 1 Dose by mouth two times a day. 1 gummi two times daily - ezetimibe (ZETIA) 10 mg tablet Take 10 mg by mouth once daily. 5 days a week - fluticasone (FLONASE) 50 mcg/actuation nasal spray Use 2 Sprays in each nostril once daily as needed for cold/allergy symptoms. Rinse mouth after use. - clobetasol (TEMOVATE) 0.05 % ointment - amLODIPine (NORVASC) 10 mg tablet Take 1 tablet by mouth once daily. (Dr. Olguin) - ubidecarenone (CO Q-10 ORAL) Take by mouth once daily. - lisinopril (ZESTRIL, PRINIVIL) 40 mg tablet Take 1 tablet by mouth once daily. - Multivitamin capsule Take 1 capsule by mouth once daily. - furosemide (LASIX) 40 mg tablet Take 40 mg by mouth once daily. - vitamin e 1,000 unit capsule Take 1,000 Units by mouth once daily. - BIOTIN ORAL Take by mouth. - VITAMIN A PALMITATE ORAL Take by mouth. - Cetirizine 10 mg cap Take by mouth. - Cholecalciferol, Vitamin D3, 1,000 unit cap Take 1 capsule by mouth once daily. - aspirin, enteric coated (ASPIRIN, ENTERIC COATED) 81 mg EC tablet Take 1 tablet by mouth once daily. - COMPOUNDED PRESCRIPTION CPAP head gear Diagnosis :OPHELIA 327.23 - OMEGA-3 FATTY ACIDS-FISH OIL 300 MG-1,000 MG CAP Take one(1) tablet daily. - diphenhydramine hcl(BENADRYL 25 MG CAP) Take one(1) tablet daily at bedtime as necessary (uses 5-6 x's a week) Problem List As Of Date 07/19/2024 Noted Resolved History of primary hyperparathyroidism [Z86.39] 01/15/2002 Coronary atherosclerosis [I25.10] 02/15/2002 Hyperlipidemia [E78.5] 02/15/2002 History of asthma [Z87.09] Allergic Rhinitis, Cause Unspecified [J30.9] BONE AND CARTILAGE DIS NOS [M89.9, M94.9] Class 3 severe obesity due to excess calories w* DISEASE OF PHARYNX NEC [J39.2] Pure Hyperglyceridemia [E78.1] 10/09/2009 Hypothyroidism [E03.9] ASCVD [I25.10] Primary hypertension [I10] Benign Neoplasm of Colon [D12.6] 06/15/2006 Dysmetabolic syndrome X [E88.810] 06/28/2006 Pain in Joint, Lower Leg [M25.569] 10/22/2008 10/30/2009 Female Stress Incontinence [N39.3] 10/22/2008 Symptomatic Menopausal or Female Climacteric St*10/22/2008 Postmenopausal Atrophic Vaginitis [N95.2] 10/22/2008 Atypical Mole [D22.9] 10/22/2008 11/22/2008 CAP (community acquired pneumonia) [J18.9] 10/30/2009 05/20/2015 Personal history of colonic polyps [Z86.0100] 03/27/2010 Other sleep disturbances [G47.8] 10/28/2010 Bruit [R09.89] 10/28/2010 OPHELIA (obstructive sleep apnea) [G47.33] 02/11/2014 Nonrheumatic aortic insufficiency with aortic s*05/20/2015 Right-sided low back (more content not included)... Normal [facility] D dimer FEU PPP-mCncon 07-19 Fibrin D-dimer FEU (PPP) [Mass/Vol] 600 ng/mL FEU High <500 [facility] Comment on above: Order Comment: Speci men Type: BLOOD SPECIMENOrdering Facility: [facility] Address: [address] [place] [address] Result Comment: Mellissa en Plasma Aliquot Performed By: #### 4 [id number] ####[facility] LABCLIA [id number] [place] [address] [place] [facility] [id number] [place] [address] [place] Eosinophils Auto (Bld) [#/Vo l]on 07-19-2024 Eosinophils (Bld) [#/Vol] 0.15 10*3/uL [facility] Interpretation and review of laboratory results Normal [facility] Eosinophils (Bld) [#/Vol] 0.15 10*3/uL Normal <0.46 [facility] Comment on above: Order Comment: Gen perez Type: BLOOD SPECIMEN [facility] Address: [address] [place] [address] Performed By: #### 3 [id number], [id number] #### [facility] LAB CLIA [id number] [address] [place] [address] [place] Fibrin D-dimer FEU (PPP) [Ma ss/Vol]on 07-19-2024 D DIMER AGE-RELATED CUTOFF 810 ng/mL FEU Normal [facility] Comment on above: Order Comment: Gen perez Type: BLOOD SPECIMENOrdering Facility: [facility] Address: [address] [place] [address] Performed By: #### 4 [id number] ####[facility] LABCLIA [id number] [place] [address] [place] [facility] [id number] [address] [place] NT-proBNP [facility] 07-19 Natriuretic peptide.B prohormone N-Terminal [Mass/Vol] 1931 pg/mL High <450 [facility] [facility] Comment on above: Order Comment: Gen perez Type: BLOOD SPECIMENOrdering Facility: [facility] Address: [address] [place] [address] Performed By: #### 3 [id number] ####[facility] LABCLIA [id number] [address] [place] No Panel Informationon 07-19 Palmer Catherine RPF T 07/19/2024 8:17 AM RESPIRATORY THERAPY ORAL EXHALED NITRIC OXIDE SERVICE DATE: 07/19/2024 SERVICE TIME: 8:17 AM Oral Exhaled Nitric Oxide measurement: 22.0 (ppb) Normal: Adult <25 ppb, pediatric (<12 years) <20 ppb High Normal / Increased: Adult 25-50 ppb, pediatric (<12 years) 20-35 ppb Moderately raised exhaled Nitric Oxide may indicate underlying inflammation, but note that: Cold and influenza can raise exhaled Nitric Oxide and some patients have higher baseline exhaled Nitric Oxide levels than others. High: Adult >50 ppb, pediatric (<12 years) >35 ppb Indicative of ongoing eosinophilic inflammation. Symptomatic patient likely to respond to steroids. Possible causes (if already on steroids): Poor compliance, recent allergen exposure, steroid dose inadequate, and steroid resistance. Note that not all patients with high exhaled nitric oxide levels display symptoms. Oral Exhaled Nitric Oxide measurement (Previous Encounters) Test Date Oral Exhaled Nitric Oxide (ppb) 07/19/2024 22.0 NAME: BLANCA Chaudhry PATIENT NAME: Jarred Fair DATE: July 19, 2024 TIME: 8:17 AM [facility] XR CHEST 2V FRONTAL/LATon XR CHEST 2V FRONTAL/LAT * * *Final Repor t* * * DATE OF EXAM: Jul 19 2024 9:12AM [id number] - XR CHEST 2V FRONTAL/LAT / PROCEDURE REASON: SOB (shortness of breath) * * * * Physician Interpretation * * * * EXAMINATION: CHEST RADIOGRAPH (2 VIEW FRONTAL and LATERAL) CLINICAL HISTORY: SOB (shortness of breath) MQ: XC2_6 EXAM DATE/TIME: 07/19/2024 9:12 AM COMPARISON: 06/13/2024 RESULT: Lines, tubes, and devices: None. Lungs and pleura: Small amount of fluid and atelectasis at both lung bases. The right-sided fluid and atelectasis is new. The left is stable. Upper lungs are clear. No pneumothorax Cardiomediastinal silhouette: Stable enlarged cardiomediastinal silhouette. Ascending aortic graft Bones and soft tissues: Unremarkable. IMPRESSION: Small bilateral pleural effusions and basilar atelectasis Cardiomegaly Retail Department Supervisor: ANIA Transcribe Date/Time: Jul 19 2024 3:37P Dictated by : MILTON HENSON MD This examination was interpreted and the report reviewed and electronically signed by: MILTON HENSON MD on Jul 19 2024 3:41PM EST [id number] Normal [facility] XR Chest PA and Lateralon IMPRESSION: Small bilateral pleural effusions and basilar atelectasis Cardiomegaly Retail Department Supervisor: ANIA Transcribe Date/Time: Jul 19 2024 3:37P Dictated by : MILTON HENSON MD This examination was interpreted and the report reviewed and electronically signed by: MILTON HENSON MD on Jul 19 2024 3:41PM [facility] DIVISION OF RADIOLOGY * * *Final Report* * * DATE OF EXAM: Jul 19 2024 9:12AM [id number] - XR CHEST 2V FRONTAL/LAT / PROCEDURE REASON: SOB (shortness of breath) * * * * Physician Interpretation * * * * EXAMINATION: CHEST RADIOGRAPH (2 VIEW FRONTAL & LATERAL) CLINICAL HISTORY: SOB (shortness of breath) MQ: XC2_6 EXAM DATE/TIME: 07/19/2024 9:12 AM COMPARISON: 06/13/2024 RESULT: Lines, tubes, and devices: None. Lungs and pleura: Small amount of fluid and atelectasis at both lung bases. The right-sided fluid and atelectasis is new. The left is stable. Upper lungs are clear. No pneumothorax Cardiomediastinal silhouette: Stable enlarged cardiomediastinal silhouette. Ascending aortic graft Bones and soft tissues: Unremarkable. DIVISION OF RADIOLOGY Provider, [facility] - 07/19/2024 * * *Final Report* * * DATE OF EXAM: Jul 19 2024 9:12AM [id number] - XR CHEST 2V FRONTAL/LAT / PROCEDURE REASON: SOB (shortness of breath) * * * * Physician Interpretation * * * * EXAMINATION: CHEST RADIOGRAPH (2 VIEW FRONTAL & LATERAL) CLINICAL HISTORY: SOB (shortness of breath) MQ: XC2_6 EXAM DATE/TIME: 07/19/2024 9:12 AM COMPARISON: 06/13/2024 RESULT: Lines, tubes, and devices: None. Lungs and pleura: Small amount of fluid and atelectasis at both lung bases. The right-sided fluid and atelectasis is new. The left is stable. Upper lungs are clear. No pneumothorax Cardiomediastinal silhouette: Stable enlarged cardiomediastinal silhouette. Ascending aortic graft Bones and soft tissues: Unremarkable. IMPRESSION IMPRESSION: Small bilateral pleural effusions and basilar atelectasis Cardiomegaly Retail Department Supervisor: ANIA Transcribe Date/Time: Jul 19 2024 3:37P Dictated by : MILTON HENSON MD This examination was interpreted and the report reviewed and electronically signed by: MILTON HENSON MD on Jul 19 2024 3:41PM EST [facility] Radiology Study observation (narrative) Nic aguilera [facility] XR Chest PA and LateralOrder ed By: [facility] Provider on 07-19-2024 [facility] Anion gap in Serum or Plasma Ordered By: Dana Blake on 07-13-2024 Anion gap [Moles/Vol] 10 mmol/L 07-19 [facility] BUN/creatinine ratioOrdered By: Dana Blake on 07-13-2024 Urea nitrogen/Creatinine [Mass ratio] 14.9 mg/mg 12-24 [facility] Basic Metabolic Profile (BMP )on 07-13-2024 BUN/CRE 14.9 RATIO Normal 12-24 [facility] Comment on above: Performed By: #### L 500.2500, L100.0100 #### [facility] [address] [place], [address] Calcium [Mass/Vol] 10.5 mg/dL Normal 7.6-11.0 [facility] Comment on above: Performed By: #### L 500.2500, L100.0100 #### [facility] [address] [place], [address] Chloride [Moles/Vol] 106 mmol/L Normal 98-108 [facility] Comment on above: Performed By: #### L 500.2500, L100.0100 #### [facility] [address] [place], [address] CO2 [Moles/Vol] 28.4 mmol/L Normal 21.0-32.0 [facility] Comment on above: Performed By: #### L 500.2500, L100.0100 #### [facility] [address] [place], [address] Creatinine [Mass/Vol] 1.03 mg/dL Normal 0.70-1.20 [facility] Comment on above: Performed By: #### L 500.2500, L100.0100 #### [facility] [address] [place], [address] GAP 10 Normal 5-15 [facility] Comment on above: Performed By: #### L 500.2500, L100.0100 #### [facility] [address] [place], [address] GFR/1.73 sq M.predicted among non-blacks MDRD (S/P/Bld) [Vol rate/Area] 55 mL/min/{1.73_m2} Low >60 [facility] Comment on above: Result Comment: mL/m in/1.73m2 CKD-EPI Creatinine Equation (2020) Performed By: #### L 500.2500, L100.0100 #### [facility] [address] [place], [address] Glucose [Mass/Vol] 156 mg/dL High 70-99 [facility] Comment on above: Performed By: #### L 500.2500, L100.0100 #### [facility] [address] [place], [address] Potassium [Moles/Vol] 3.3 mmol/L Normal 3.3-5.1 [facility] Comment on above: Performed By: #### L 500.2500, L100.0100 #### [facility] [address] [place], [address] Sodium [Moles/Vol] 145 mmol/L Normal 133-145 [facility] Comment on above: Performed By: #### L 500.2500, L100.0100 #### [facility] [address] [place], [address] Urea nitrogen [Mass/Vol] 15 mg/dL Normal 4-19 [facility] Comment on above: Performed By: #### L 500.2500, L100.0100 #### [facility] [address] [place], [place], [address] Carbon dioxide, total [Moles /volume] in Central venous bloodOrdered By: Dana Blake on 07-13-2024 CO2 [Moles/Vol] 28.4 mmol/L 21.0-32.0 [facility] Cardiology Visit Reporton Cardiology Visit Report [facility] [address] [place], [place] [address] OFFICE VISIT Date of Service: 07/13/24 MR#: [id number] Acct: [id number] Name: FRANK FAIR Rep #: [id number] : 1940 Provider: FILIBERTO Fraire Age/Sex: 83/F Location: [facility] Status: Signed HPI HPI History of Present Illness Details: JARRED FAIR, is a 83 F with a history of severe aortic stenosis with mild coronary artery disease. She had a TAVR procedure done at [facility] in December 2016. Her one year echocardiogram in December 2017 at [facility] demonstrated an ejection fraction of 60%, normal diastolic function and normal prosthetic aortic valve with minimal gradient and no aortic regurgitation. She had an echo in May 2024 demonstrating an ejection fraction of 65% and a mean aortic valve gradient of 11 mmHg. She has been having issues with her blood pressure readings. Pt has been more SOB since May. She had pneumonia. She sts that she then had fluid on her lung. She had some additional pulmonary test done. She has an anthony with pulmonary at [facility] on 07/19. She notes that she has had increase in swelling. She is not able to lay flat without being SOB. She has needed to use a wedge. This is newer. She does not have any CP. She does sometimes she feels her heart is racing when she is SOB. She has gained 3-4 lbs. She has been having increased Bp readings. I did send her to have a thorancetesis done, she did not have enough fluid to be removed. She notes that she is feeling better with the additions of spirolactone. Bp at home is better than here. 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 Is patient in pain?: No Allergies Environmental Allergies: Uncoded Allergy (Verified 08/01/24 08:22) Anaphylaxis rosuvastatin (From Crestor) Adverse Reaction (Intermediate, Verified 08/01/24 08:22) Myalgias nifedipine Adverse Reaction (Verified 08/01/24 08:22) Unknown simvastatin (From Zocor) Adverse Reaction (Verified 08/01/24 08:22) Myalgias Medications ???Medication ???Instructions ???Recorded ???Confirmed ???Type albuterol sulfate 90 mcg/actuation 1 puff inhalation Q4H PRN PRN 08/01/24 History aerosol inhaler Asthma cholecalciferol (vitamin D3) 25 1,000 unit PO DAILY vitamin 08/03/24 History mcg (1,000 unit) tablet montelukast 10 mg tablet 10 mg PO DAILY allergies 08/06/16 08/03/24 History omega-3 fatty acids-fish oil 300 1 ea PO DAILY supplement 08/06/16 08/03/24 History mg-1,000 mg capsule vitamin A 2,400 mcg capsule 8,000 unit PO DAILY vitamin 08/03/24 History vitamin E mixed 1,000 unit capsule 1,000 unit PO DAILY vitamin 06/0 04/2308/03/24 History multivitamin 1 tab PO DAILY vitamin 02/16/17 History aspirin 81 mg tablet,delayed 81 mg PO DAILY@0800 heart health 1 04/14/21 08/03/24 Rx release #90 tabs zinc gluconate 50 mg tablet 50 mg PO DAILY supplement 02/11/22 08/03/24 History lisinopril 40 mg tablet 40 mg PO DAILY blood pressure #90 01/26/24 08/03/24 Rx tabs ezetimibe 10 mg tablet (Zetia) 10 mg PO DAILY cholesterol #90 tab s 04/12/24 08/03/24 Rx cetirizine 10 mg tablet 10 mg PO QDAY PRN allergy symptoms 04/17/24 08/01/24 History magnesium 250 mg tablet 250 mg PO DAILY supplement 5 08/03/24 History rosuvastatin 5 mg tablet 5 mg PO DAILY cholesterol 04/17/24 08/03/24 History diphenhydramine HCl 25 mg capsule 25 mg PO QHS PRN allergic reactio n 07/05/24 08/01/24 History (Benadryl) fluticasone propionate 50 2 spray intranasal DAILY PRN 07/0508/01/24 History mcg/actuation nasal allergy symptoms spray,suspension (Flonase Allergy Relief) levothyroxine 137 mcg tablet 137 mcg PO QDAY thyroid 07/05/24 0 08/03/24 History (Synthroid) turmeric root extract 500 mg 500 mg PO QDAY supplement 07/05/24 08/03/24 History capsule amlodipine 5 mg tablet 5 mg PO DAILY blood pressure #90 0 07/13/24 08/03/24 Rx tabs carvedilol 25 mg tablet 25 mg PO BID blood pressure #180 0 07/31/24 08/03/24 Rx tabs spironolactone 25 mg tablet 25 mg PO DAILY diuretic #90 tabs 0 07/31/24 08/03/24 Rx fluticasone propionate 115 2 puff inhalation BID breathing 08/03/24 History mcg-salmeterol 21 mcg/actuation HFA inhaler (Advair HFA) furosemide 40 mg tablet 40 mg PO BID #120 tabs 08/03/24 R x potassium chloride 20 mEq 20 meq PO BIDCM #60 tabs 08/03/24 Rx tablet,extended release(part/cryst) Have you (more content not included)... Normal [facility] Chloride assayOrdered By: Kathryn Blake on 07-13-2024 Chloride [Moles/Vol] 106 mmol/L 98-108 [facility] Glomerular filtration rate ( GFR) estimation/1.73 sq m using serum, plasma, or whole bOrdered By: Dana Blake on 07-13-2024 GFR/1.73 sq M.predicted among non-blacks MDRD (S/P/Bld) [Vol rate/Area] 55 mL/min/{1.73_m2} Low >60 [facility] Comment on above: mL/min/1.73m2 CKD-EP I Creatinine Equation (2020) Potassium measurement (mass/ volume)Ordered By: Dana Blake on 07-13-2024 Potassium (Unsp spec) [Mass/Vol] 3.3 mmol/L 3.3-5.1 [facility] Serum creatinine measurement (mass/volume)Ordered By: Dana Blake on 07-13-2024 Creatinine [Mass/Vol] 1.03 mg/dL 0.70-1.20 [facility] Serum glucose measurement (m ass/volume)Ordered By: Dana Blake on 07-13-2024 Glucose [Mass/Vol] 156 mg/dL High 70-99 [facility] Serum or plasma calcium piedad urement (mass/volume)Ordered By: Dana Blake on 07-13-2024 Calcium [Mass/Vol] 10.5 mg/dL 7.6-11.0 [facility] Serum or plasma urea nitroge n measurement (mass/volume)Ordered By: Dana Blake on 07-13-2024 Urea nitrogen [Mass/Vol] 15 mg/dL 4-19 [facility] Sodium levelOrdered By: Frantz Blake on 07-13-2024 Sodium [Moles/Vol] 145 mmol/L 133-145 [facility] Cardiology Visit Reporton Cardiology Visit Report [facility] [address] [place], [place] [address] OFFICE VISIT Date of Service: 07/05/24 MR#: [id number] Acct: [id number] Name: FRANK FAIR Rep #: [id number] : 1940 Provider: FILIBERTO Fraire Age/Sex: 83/F Location: [facility] Status: Signed HPI HPI History of Present Illness Details: JARRED FAIR, is a 83 F with a history of severe aortic stenosis with mild coronary artery disease. She had a TAVR procedure done at [facility] in December 2016. Her one year echocardiogram in December 2017 at [facility] demonstrated an ejection fraction of 60%, normal diastolic function and normal prosthetic aortic valve with minimal gradient and no aortic regurgitation. She had an echo in May 2024 demonstrating an ejection fraction of 65% and a mean aortic valve gradient of 11 mmHg. She has been having issues with her blood pressure readings. Pt has been more SOB since May. She had pneumonia. She sts that she then had fluid on her lung. She had some additional pulmonary test done. She has an anthony with pulmonary at [facility] on 07/19. She notes that she has had increase in swelling. She is not able to lay flat without being SOB. She has needed to use a wedge. This is newer. She does not have any CP. She does sometimes she feels her heart is racing when she is SOB. She has gained 3-4 lbs. She has been having increased Bp readings. Intake Vital Signs 04/17/24 09:46 07/05/24 12:55 Height 5 ft 5 ft Weight: 215 lb 220 lb BMI 42.0 43.0 BP 123/49 H 154/70 H Blood Pressure Location Lt brachial Lt brachial Position Sitting Sitting Respiration 16 20 H Pulse 69 66 Pulse Source Monitor NIBP Intake Visit Reasons: SOB (Antonio) Pizza Driver Required: No Is patient in pain?: No Allergies Environmental Allergies: Uncoded Allergy (Verified 07/05/24 12:57) Anaphylaxis rosuvastatin (From Crestor) Adverse Reaction (Intermediate, Verified 07/05/24 12:57) Myalgias nifedipine Adverse Reaction (Verified 07/05/24 12:57) Unknown simvastatin (From Zocor) Adverse Reaction (Verified 07/05/24 12:57) Myalgias Medications ???Medication ???Instructions ???Recorded ???Confirmed ???Type albuterol sulfate 90 mcg/actuation 1 puff inhalation Q4H PRN PRN 07/05/24 History aerosol inhaler Asthma biotin 5 mg tablet 5 mg PO DAILY 08/06/16 07/05/24 Hi story cholecalciferol (vitamin D3) 25 1,000 unit PO DAILY 08/06/1607/05 History mcg (1,000 unit) tablet montelukast 10 mg tablet 10 mg PO DAILY 08/06/16 07/05/24 H istory omega-3 fatty acids-fish oil 300 1 ea PO DAILY 08/06/16 07/05/24 Hi story mg-1,000 mg capsule vitamin A 2,400 mcg capsule 8,000 unit PO DAILY 08/06/1607/05 History vitamin E mixed 1,000 unit capsule 1,000 unit PO DAILY 08/06/1603/31 History multivitamin 1 tab PO QDAY 02/16/17 07/05/24 Hi story aspirin 81 mg tablet,delayed 81 mg PO DAILY@0800 #90 tabs 02/1107/05/24 Rx release clobetasol 0.05 % topical ointment 1 applic topical DAILY 02/11/22 07/05/24 History zinc gluconate 50 mg tablet 50 mg PO DAILY 02/11/22 07/05/24 H istory lisinopril 40 mg tablet 40 mg PO DAILY #90 tabs 01/26/24 0 07/05/24 Rx amlodipine 10 mg tablet 10 mg PO DAILY #90 tabs 04/12/24 0 07/05/24 Rx ezetimibe 10 mg tablet (Zetia) 10 mg PO DAILY #90 tabs 04/12/24 0 07/05/24 Rx furosemide 40 mg tablet 40 mg PO DAILY #90 tabs 04/12/24 0 07/05/24 Rx cetirizine 10 mg tablet 10 mg PO QDAY PRN 04/17/24 5 History coenzyme Q10 30 mg capsule (Co 30 mg PO QDAY 04/17/24 07/05/24 Hi story Q-10) magnesium 250 mg tablet 250 mg PO QDAY 04/17/24 07/05/24 H istory rosuvastatin 5 mg tablet 5 mg PO .Mon/Thurs 04/17/24 History carvedilol 25 mg tablet 25 mg PO BID #60 tabs 05/24/2403/31 Rx diphenhydramine HCl 25 mg capsule 25 mg PO QHS PRN 07/05/24 5 History (Benadryl) fluticasone propionate 50 2 spray intranasal QDAY 07/05/24 0 07/05/24 History mcg/actuation nasal spray,suspension (Flonase Allergy Relief) levothyroxine 137 mcg tablet 137 mcg PO QDAY 07/05/24 07/05/24 History (Synthroid) spironolactone 25 mg tablet 25 mg PO DAILY #30 tabs 07/05/24 0 07/05/24 Rx turmeric root extract 500 mg 500 mg PO QDAY 07/05/24 07/05/24 H istory capsule Ejection fraction %: 65 Have you fallen in the past year?: No PFSH Medical History Nonrheumatic aortic (valve) stenosis Atherosclerosis of coronary artery of [place] heart without angina pectoris Obesity 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rtery with unstable angina pectoris OPHELIA (obstructive sleep apnea) Essential hypertension Fatigue Family history of hypertension Exertional shortness o (more content not included)... Normal [facility] Chest PA and Lateralon 07-05 Chest PA and Lateral [facility] [address] [place], [place] [address] Chest PA and Lateral MR#: [id number] Acct: [id number] Name: FRANK FAIR Rep #: [id number] : 1940 F 83 From: Vaibhav Quinn MD PCP: Dr. Pam Mcgill MD Status: REG CLI Study: Chest PA and Lateral Date of Exam: 07/05/24 Exam# [id number] Ordering Dr: Dana Blake PA PROCEDURE: CHEST PA AND LATERAL 07/05/2024 REASON FOR EXAM: SOB TECHNIQUE: Frontal and lateral views of the chest. COMPARISON: No relevant prior FINDINGS: Lungs: Bilateral prominent pulmonary vasculature. Pleura: Small bilateral pleural effusions blunt the lateral and posterior costophrenic angles. Heart: Mild cardiac enlargement. Mediastinum/Argenis: Unremarkable. Great vessels: Atherosclerotic and mildly tortuous aorta. Stent graft near the aortic root. Bones/soft tissues: Multilevel spondylosis. RAD/Chest PA and Lateral IMPRESSION: Findings consistent with pulmonary venous congestion. Reading Location: [facility] CC: Dr. Pam Mcgill MD; FILIBERTO Mcdonough Retail Department Supervisor: Signed Normal [facility] CNOVon 06-28-2024 CNOV Office Visit (INTMWS ) JARRED FAIR ([id number]) 1940 F NFR Date Time Provider Department 06/28/24 10:00 AM HAILY ALVAREZ INTMWS During your visit today, we recorded the following information about you: Pulse Respiration Blood pressure Weight 61/minute 16/minute 145/65 99.5 kg Haily Alvarez, MARCELINA.DIRECTOR OF BUSINESS OPERATIONS 06/28/2024 11:01 AM Signed Subjective Patient ID: Jarred is a 83 year old female who presents for No chief complaint on file.. HPI Dyspnea: - Onset in April; initially accompanied by elevated blood pressure. - Managed by [facility] with increased antihypertensive medication. - Worsened in May, leading to an urgent care visit where bilateral pneumonia was diagnosed. - Recent PFTs showed both obstructive and restrictive patterns, with decreased diffusing capacity. - Echocardiogram on May 22 showed normal LV size and function, no significant valvular change at aortic valve, mild LA dilation. See scanned document - Currently using a CPAP machine for OPHELIA. - Denies improvement with albuterol inhaler use. Edema: - Reports persistent edema in feet and ankles, unresponsive to current Lasix 40 mg daily. - Edema previously resolved overnight but now remains constant. Weight Management: - Struggles with weight loss for 60 years. - Previously managed weight through walking and dietary modifications. - Currently unable to exercise due to severe dyspnea with minimal exertion. - Reports poor dietary habits, not eating the right stuff. - Has discussed weight loss with Dr. Mcgill and Dr. Olguin, but no specific recommendations provided recently. ROS Constitutional: (+) weight gain Cardiovascular: (+) lower extremity edema Respiratory: (+) shortness of breath Objective LMP 09/04/2001 Physical Exam Vitals and nursing note reviewed. Constitutional: Appearance: Normal appearance. HENT: Head: Normocephalic and atraumatic. Eyes: Conjunctiva/sclera: Conjunctivae normal. Cardiovascular: Rate and Rhythm: Normal rate and regular rhythm. Heart sounds: Normal heart sounds. Pulmonary: Effort: Pulmonary effort is normal. Breath sounds: Normal breath sounds. Abdominal: General: Bowel sounds are normal. Palpations: Abdomen is soft. Musculoskeletal: Right lower leg: Edema (1-2+ to mid calf) present. Left lower leg: Edema (1-2+ to mid calf) present. Neurological: General: No focal deficit present. Mental Status: She is alert and oriented to person, place, and time. 1. DONALD (dyspnea on exertion) (R06.09) 2. Restrictive lung disease (J98.4) 3. Decreased diffusion capacity (R94.2) 5. History of asthma (Z87.09) - Recent PFTs show both obstructive and restrictive patterns, with decreased diffusing capacity; no improvement with bronchodilators. - Echocardiogram on May 22 2024 showed normal LV size and function, mild LA dilation; no significant changes from previous studies. Sooner follow up with cardiology recommended due to increased dyspnea on exertion and edema. Increasing carvedilol dose may have made asthma symptoms worse than previous. - Referred to pulmonology for further evaluation and management. - Discussed potential use of a combination inhaler with bronchodilator and corticosteroid properties; will consider based on pulmonology recommendations and insurance coverage. 4. OPHELIA (obstructive sleep apnea) (G47.33) - is currently using CPAP therapy. 6. Class 3 severe obesity due to excess calories with body mass index (BMI) of 40.0 to 44.9 in adult (E66.813) - Discussed weight loss strategies, including diet and exercise;reports difficulty with exercise due to dyspnea. - Educated on pharmacological options for weight loss, including appetite suppressants such as bupropion and GLP-1 receptor agonists (e.g., Ozempic); advised patient to check insurance coverage. - Follow-up in one month to reassess weight management progress, edema, dyspnea on exertion and discuss potential initiation of weight loss medication. 7. IFG (impaired fasting glucose) (R73.01) 8. Aortic valve disorder (I35.9) Following with cardiology [facility]. Haily Alvarez APRN.DIRECTOR OF BUSINESS OPERATIONS Medical Decision Making: Problems: Moderate: 1+ chronic illnesses with change Data: Unique test result(s) reviewed: 3+ Risk: Moderate: Drug management Medical Decision Making Level: 4 - Moderate Haily Alvarez APRN.DIRECTOR OF BUSINESS OPERATIONS 06/28/2024 10:40 AM Addendum Continue taking your current Lasix (furosemide) 40 mg every day. For the next 3 days, add an extra half pill (taken 6 hours after your morning dose) to help reduce the swelling in your legs. Take supplemental potassium for the next three days Schedule an appointment with a mail distribution scheme examiner at [facility] to further evaluate and manage your breathing difficulties. We will weight loss options with your pr (more content not included)... Normal [facility] CNPNon [facility]20[facility] JARRED FAIR ([id number]) 1940 F NFR Date Time Provider Department 06/26/24 PAM MCGILLLOVE During your visit today, we recorded the following information about you: Venecia Tong LPN 06/26/2024 10:21 AM Signed Pt reports pulmonary testing results are on [facility] but pt does not understand results. Pt also asking what she needs to do to make situation better. What is the next step. Please review and advise. MARIBELL Wall Amanda, RN 06/27/2024 11:05 AM Signed Pt called in asking if provider could call her back about results on PFTs. She states SOB has gotten worse. She reports to being very SOB when first getting up in the morning and when up with exertion. Pt states she is fine when sitting still. Pt states she doesn't know if she needs oxygen or to double up on her Lasix. Please call and advise. CARIN Giordano Liza D, MD 06/27/2024 1:24 PM Signed The PFTs showed she has both obstruction and restriction contributing to shortness of breath. So findings of COPD as well as weight affection her ability to breath well. Restriction means that weight is causing pressure on the lungs so not able to get a deep enough breath in. Her results are worse than when last checked in 2020. Just had no obstruction and some mild restriction last time. There is also decrease transfer of from the air sac(alveolus) to the blood stream, so this can decrease ability for oxygen to get from the air sacs in the lung to the blood stream. No improvement with bronchodilators. Recommend seeing mail distribution scheme examiner to get their recommendations for managing COPD and decreased diffusing capacity. Weight loss needed to improve restrictions. Lasix would be for treating if fluid in lungs--this was not assessed, so need to see if clinically has signs of fluid overload or retention or CHF. Would need to recheck pulse ox at rest and with exertion to determine whether needs oxygen--mail distribution scheme examiner can do these studies. Follow up to discuss if prefers before referral. Claudia Duong RN 06/27/2024 2:20 PM Signed Phoned pt and given provider's message below with verbalized understanding. Pt agreeable. Scheduled appt with Haily for tomorrow, to assess for CHF. Pt has SOB- worse on exertion, POX right now reading 94% at rest, HR 69 at rest. Per pt BP this mornin/57 (61). Has swelling in feet and lower legs for 2 yrs but worse in the last 6 weeks. Able to wear shoes. Pt had pneumonia in May. Pt's patient support assistant quadrupled her coreg. Increased from 6.25 mg bid to 25 mg bid. Pt states the increase has helped. Vice President Quality Improvement is Dr. Olguin. Pt is agreeable to see mail distribution scheme examiner and asking Haily to place referral when she see's you at appt tomorrow. Pam Mcgill MD 06/27/2024 11:48 PM Signed Noted. Pam Mcgill MD Allergies As of Date: 06/26/2024 Noted Allergy Reaction FRAGRANCES 12/05/2018 14 - Other: See Comments SIMVASTATIN 06/05/2010 14 - Other: See Comments 17 - Myalgia Comments: Includes rosuvastatin 5mg tried M/W/F JELLY BEANS 06/28/2006 Comments: Throat got real tight and cough could not breath NIFEDIPINE 01/15/2002 Comments: hypotensive, light headed PERFUME 02/01/2023 16 - Unknown SMOKE 02/01/2023 16 - Unknown VINEGAR 02/01/2023 16 - Unknown Date Reviewed: 06/20/2024 Reviewed by: Palmer Catherine RPFT - Fully Assessed Reason for Visit: Results [95] Prescriptions as of 06/27/2024 - carvedilol (COREG) 25 mg tablet Take 25 mg by mouth two times a day with meals. - levothyroxine (SYNTHROID) 137 mcg tablet Take 1 tablet by mouth daily before breakfast. Plus add half pill on Sundays (total 7.5 pills taken per week) - albuterol HFA (VENTOLIN HFA) 90 mcg/actuation inhaler Inhale 2 Puffs as instructed every 4 hours as needed. - montelukast (SINGULAIR) 10 mg tablet Take 1 tablet by mouth once daily. As directed - CPAP Continue CPAP at 9cm H2O with humidification. Refills for Mask (per patient preference) optional chin strap (if indicated) , filters, tubing, humidifier and lifetime supplies. G47.33 - rosuvastatin (CRESTOR) 5 mg tablet Take 1 tablet by mouth two times a week. - Miscellaneous Medical Supply Potassium OTC 1 capsule once daily - Magnesium 250 mg tab Take 250 mg by mouth once daily. - TURMERIC ORAL Take 1 Dose by mouth two times a day. 1 gummie twice daily - ZINC ORAL Take 1 Dose by mouth two times a day. 1 gummi two times daily - ezetimibe (ZETIA) 10 mg tablet Take 10 mg by mouth once daily. 5 days a week - fluticasone (FLONASE) 50 mcg/actuation nasal spray Use 2 Sprays in each nostril once daily as needed for cold/allergy symptoms. Rinse mouth after use. - clobetasol (TEMOVATE) 0.05 % ointment - amLODIPine (NORVASC) 10 mg tablet Take 1 tablet by mouth once daily. (Dr. Olguin) - ubidecarenone (CO Q-10 ORA (more content not included)... Normal [facility] 25(OH)D3 SerPl-mCncon 2024 25-hydroxyvitamin D3 [Mass/Vol] 88.5 ng/mL High 31.0-80.0 [facility] Comment on above: Order Comment: Gen perez Type: BLOOD SPECIMEN Ordering Facility: [facility] Address: [address] [place] [address] Result Comment: Clas sification of 25 [place] Vitamin D status: Deficiency/Insufficiency: < or = 30 ng/ml. Sufficiency/Optimal Levels: 31-80 ng/mL Toxicity: > 100 ng/mL. Test performed by chemiluminescent immunoassay. Performed By: #### 1 989-3 #### [facility] CLIA [id number] [address] [place] [address] [place] ALBUMIN/CREATININE RATIO, UR INE 06-20-2024 Albumin DL <= 20 mg/L (U) [Mass/Vol] 56.9 mg/L Normal [facility] Comment on above: Order Comment: Gen perez Type: BLOOD SPECIMEN Ordering Facility: [facility] Address: [address] [place] [address] Performed By: #### 1 989-3 #### [facility] CLIA [id number] [address] [place] [address] [place] Albumin/Creatinine (U) [Mass ratio] 605 mg/g High <30 [facility] Comment on above: Order Comment: Gen perez Type: BLOOD SPECIMEN Ordering Facility: [facility] Address: [address] [place] [address] Result Comment: Adul t Male and Female Nephrotic Criteria: <30 mg/g is considered normal to mildly increased 30-300 mg/g is considered moderately increased >300 mg/g is considered severely increased KDIGO. (2013). KDIGO 2012 Clinical Practice Guideline for the Evaluation and Management of Chronic Kidney Disease. Official Journal of the International Society of Nephrology, 3(1), 1-150. Performed By: #### 1 989-3 #### [facility] CLIA [id number] [address] [place] [address] [place] Creatinine (U) [Mass/Vol] 9.4 mg/dL Low 20.0-300.0 [facility] Comment on above: Order Comment: Speci men Type: BLOOD SPECIMEN Ordering Facility: [facility] Address: [address] [place] [address] Performed By: #### 1 989-3 #### [facility] CLIA [id number] [address] [place] [id number] [place] [address] [place] CBC panel Auto (Bld)on 06-20 Erythrocyte distribution width (RBC) [Ratio] 14.1 % Normal 11.5-15.0 [facility] Comment on above: Order Comment: Speci men Type: BLOOD SPECIMENOrdering Facility: [facility] Address: [address] [place] [address] Performed By: #### 5 8410-2 ####[facility] [id number] [address] [place] Hematocrit (Bld) [Volume fraction] 36.6 % Normal 36.0-46.0 [facility] Comment on above: Order Comment: Speci men Type: BLOOD SPECIMENOrdering Facility: [facility] Address: [address] [place] [address] Performed By: #### 5 8410-2 ####[facility] [id number] [address] [place] Hemoglobin (Bld) [Mass/Vol] 11.9 g/dL Normal 11.5-15.5 [facility] Comment on above: Order Comment: Speci men Type: BLOOD SPECIMENOrdering Facility: [facility] Address: [address] [place] [address] Performed By: #### 5 8410-2 ####[facility] [id number] [place] [address] [place] MCH (RBC) [Entitic mass] 28.7 pg Normal 26.0-34.0 [facility] Comment on above: Order Comment: Speci men Type: BLOOD SPECIMENOrdering Facility: [facility] Address: [address] [place] [address] Performed By: #### 5 8410-2 ####[facility] SUSHILMadelaineNCSORAYAA [id number] [place] [address] [place] MCHC (RBC) [Mass/Vol] 32.5 g/dL Normal 30.5-36.0 [facility] Comment on above: Order Comment: Speci men Type: BLOOD SPECIMENOrdering Facility: [facility] Address: [address] [place] [address] Performed By: #### 5 8410-2 ####[facility] [id number] [place] [address] [place] MCV (RBC) [Entitic vol] 88.2 fL Normal 80.0-100.0 [facility] Comment on above: Order Comment: Speci men Type: BLOOD SPECIMENOrdering Facility: [facility] Address: [address] [place] [address] Performed By: #### 5 8410-2 ####[facility]CL[facility] [id number] [place] [address] [place] Nucleated RBC (Bld) [#/Vol] 10*3/uL Normal <0.01 [facility] Comment on above: Order Comment: Speci men Type: BLOOD SPECIMENOrdering Facility: [facility] Address: [address] [place] [address] Performed By: #### 5 8410-2 ####[facility]CL[facility] [id number] [place] [address] [place] Platelet mean volume (Bld) [Entitic vol] 10.9 fL Normal 9.0-12.7 [facility] Comment on above: Order Comment: Speci men Type: BLOOD SPECIMENOrdering Facility: [facility] Address: [address] [place] [address] Performed By: #### 5 8410-2 ####[facility] SMITANCLIA [id number] [place] [address] [place] Platelets (Bld) [#/Vol] 178 10*3/uL Normal 150-400 [facility] Comment on above: Order Comment: Speci men Type: BLOOD SPECIMENOrdering Facility: [facility] Address: [address] [place] [address] Performed By: #### 5 8410-2 ####[facility] SUSHILALTAMONTE SPRINGSNCLIA [id number] [place] [address] [place] RBC (Bld) [#/Vol] 4.15 10*6/uL Normal 3.90-5.20 [facility] Comment on above: Order Comment: Speci men Type: BLOOD SPECIMENOrdering Facility: [facility] Address: [address] [place] [address] Performed By: #### 5 8410-2 ####[facility] [id number] [place] [address] [place] WBC (Bld) [#/Vol] 6.28 10*3/uL Normal 3.70-11.00 [facility] Comment on above: Order Comment: Speci men Type: BLOOD SPECIMENOrdering Facility: [facility] Address: [address] [place] [address] Performed By: #### 5 8410-2 ####[facility]CL[facility] [id number] [place] [address] [place] [facility] [place] Comprehensive metabolic 2000 panelon 06-20-2024 Albumin [Mass/Vol] 4.4 g/dL Normal 3.9-4.9 [facility] Comment on above: Order Comment: Speci men Type: BLOOD SPECIMEN Ordering Facility: [facility] Address: [address] [place] [address] Performed By: #### 1 989-3 #### [facility] CLIA [id number] [address] [place] [address] [place] ALP [Catalytic activity/Vol] 115 U/L Normal 34-123 [facility] Comment on above: Order Comment: Speci men Type: BLOOD SPECIMEN Ordering Facility: [facility] Address: [address] [place] [address] Performed By: #### 1 989-3 #### [facility] CLIA [id number] [address] [place] [address] [place] ALT [Catalytic activity/Vol] 16 U/L Normal 7-38 [facility] Comment on above: Order Comment: Speci men Type: BLOOD SPECIMEN Ordering Facility: [facility] Address: [address] [place] [address] Performed By: #### 1 989-3 #### [facility] CLIA [id number] [address] [place] [address] [place] Anion gap [Moles/Vol] 9 mmol/L Normal 8-15 [facility] Comment on above: Order Comment: Speci men Type: BLOOD SPECIMEN Ordering Facility: [facility] Address: [address] [place] [address] Performed By: #### 1 989-3 #### [facility] CLIA [id number] [address] [place] [address] [place] AST [Catalytic activity/Vol] 14 U/L Normal 13-35 [facility] Comment on above: Order Comment: Speci men Type: BLOOD SPECIMEN Ordering Facility: [facility] Address: [address] [place] [address] Performed By: #### 1 989-3 #### [facility] CLIA [id number] [address] [place] [address] [place] Bilirubin [Mass/Vol] 1.0 mg/dL Normal 0.2-1.3 [facility] Comment on above: Order Comment: Speci men Type: BLOOD SPECIMEN Ordering Facility: [facility] Address: [address] [place] [id number] Performed By: #### 1 989-3 #### [facility] CLIA [id number] [address] [place], [place] [address] [place] Calcium [Mass/Vol] 10.7 mg/dL High 8.5-10.2 [facility] Comment on above: Order Comment: Speci men Type: BLOOD SPECIMEN Ordering Facility: [facility] Address: [address] [place], [place] [address] Performed By: #### 1 989-3 #### [facility] CLIA [id number] [address] [place] [address] [place] Chloride [Moles/Vol] 103 mmol/L Normal 98-107 [facility] Comment on above: Order Comment: Speci men Type: BLOOD SPECIMEN Ordering Facility: [facility] Address: [address] [place], [place] [address] Performed By: #### 1 989-3 #### [facility] CLIA [id number] [address] [place] [address] [place] CO2 [Moles/Vol] 28 mmol/L Normal 22-30 [facility] Comment on above: Order Comment: Speci men Type: BLOOD SPECIMEN Ordering Facility: [facility] Address: [address] [place], [place] [address] Performed By: #### 1 989-3 #### [facility] CLIA [id number] [address] [place], [place] [address] [place] Creatinine [Mass/Vol] 0.96 mg/dL Normal 0.58-0.96 [facility] Comment on above: Order Comment: Speci men Type: BLOOD SPECIMEN Ordering Facility: [facility] Address: [address] [place] [id number] Performed By: #### 1 989-3 #### [facility] CLIA [id number] [address] [place] [address] [place] Creatinine and Glomerular filtration rate.predicted panel (S/P/Bld) 60 mL/min/1.73m??? Normal >=60 [facility] Comment on above: Order Comment: Gen perez Type: BLOOD SPECIMEN Ordering Facility: [facility] Address: [address] [place] [address] Result Comment: Prerna mated Glomerular Filtration Rate (eGFR) is calculated using the 2020 CKD-EPI creatinine equation. This equation utilizes serum creatinine, sex, and age as parameters. The creatinine assay has traceable calibration to isotope dilution-mass spectrometry. Refer to KDIGO guidelines for clinical interpretation. In patients with unstable renal function, e.g. those with acute kidney injury, the eGFR may not accurately reflect actual GFR. Performed By: #### 1 989-3 #### [facility] CLIA [id number] [address] [place] [address] [place] Glucose [Mass/Vol] 136 mg/dL High 74-99 [facility] Comment on above: Order Comment: Gen perez Type: BLOOD SPECIMEN Ordering Facility: [facility] Address: [address] [place] [address] Result Comment: The [place] Diabetes Association (ADA) provides guidance for cutoff values for fasting glucose and random glucose. The ADA defines fasting as no caloric intake for at least 8 hours. Fasting plasma glucose results between 100 to 125 mg/dL indicate increased risk for diabetes (prediabetes). Fasting plasma glucose results greater than or equal to 126 mg/dL meet the criteria for diagnosis of diabetes. In the absence of unequivocal hyperglycemia, results should be confirmed by repeat testing. In a patient with classic symptoms of hyperglycemia or hyperglycemic crisis, random plasma glucose results greater than or equal to 200 mg/dL meet the criteria for diagnosis of diabetes. Reference: Standards of Medical Care in Diabetes 2016, [place] Diabetes Association. Diabetes Care. 2016.39(Suppl 1). Performed By: #### 1 989-3 #### [facility] CLIA [id number] [address] [id number] [address] [place] Potassium [Moles/Vol] 3.5 mmol/L Low 3.7-5.1 [facility] Comment on above: Order Comment: Speci men Type: BLOOD SPECIMEN Order[facility] Facility[facility] Address: [address] [place] [address] Performed By: #### 1 989-3 #### [facility] CLIA [id number] [address] [place] [address] [place] Protein [Mass/Vol] 6.9 g/dL Normal 6.3-8.0 [facility] Comment on above: Order Comment: Speci men Type: BLOOD SPECIMEN [facility] Facility: [facility] Address: [address] [place] [address] Performed By: #### 1 989-3 #### [facility] CLIA [id number] [address] [place] [address] [place] Sodium [Moles/Vol] 140 mmol/L Normal 136-144 [facility] Comment on above: Order Comment: Speci men Type: BLOOD SPECIMEN [facility] Address: [address] [place] [address] Performed By: #### 1 989-3 #### [facility] CLIA [id number] [address] [place] [address] [place] Urea nitrogen [Mass/Vol] 17 mg/dL Normal 7-21 [facility] Comment on above: Order Comment: Speci men Type: BLOOD SPECIMEN Order[facility] Facility: [facility] Address: [address] [place] [address] Performed By: #### 1 989-3 #### [facility] CLIA [id number] [address] [place] [address] [place] HbA1c (Bld)on 06-20-2024 Average glucose Estimated from glycated hemoglobin (Bld) [Mass/Vol] 123 mg/dL Normal [facility] Comment on above: Order Comment: Speci men Type: BLOOD SPECIMEN Order[facility] Facility: [facility] Address: [address] [place] [id number] Result Comment: eAG: (Estimated average glucose) is a calculated value from HgbA1c and is health and safety representative of the average blood glucose level in the last 2-3 month period. Performed By: #### 1 989-3 #### [facility] CLIA [id number] [address] [place] [address] [place] HbA1c (Bld) [Mass fraction] 5.9 % High 4.3-5.6 [facility] Comment on above: Order Comment: Speci men Type: BLOOD SPECIMEN Ordering Facility: [facility] Address: [address] [place] [address] Result Comment: [place] Diabetes Association guidelines indicate that patients with HgbA1c in the range 5.7-6.4% are at increased risk for development of diabetes, and intervention by lifestyle modification may be beneficial. HgbA1c greater or equal to 6.5% is considered diagnostic of diabetes. Performed By: #### 1 989-3 #### [facility] CLIA [id number] [address] [place] [address] [place] LUNG DIFFUSION CAPACITY (KEISHA O)on 06-20-2024 LUNG DIFFUSION CAPACITY (DLCO) [place] [address] [facility], [place] [address] Test Date: 2024-06-20 Pat Name: JARRED FAIR Department: Room: Gender: Female Twister Doffer: : 1940 Requested By: Order Number: [id number] Reading MD: Mariya Mcadams MD Interpretive Statements Medications and Allergies were reviewed for possible drug interactions per policy. No contraindications or sensitivities were noted. Meds taken: Albuterol 3.5 hours before testing. 2 puffs Albuterol (180 mcg) delivered by MDI via holding chamber. HR pre = 71/min, HR post = /min. Current ATS/ERS acceptability and repeatability standards for spirometry met. Start of test and EOFE criteria met. Current ATS/ERS acceptability and repeatability standards for lung volumes met. Only 1 acceptable DLCO measurement obtained despite patient's best effort. IVC for DLCO 85% of target IVC. IMPRESSION: Combined obstruction and restriction. Negative bronchodilator response. Decrease in TLC indicates restriction. The diffusing capacity (uncorrected for hemoglobin) is reduced. The kCO (DLCO/VA) reflects a normal transfer/diffusion of CO from the alveolar regions to the blood. Clinical correlation recommended. Electronically Signed On 06-20-2024 16:18:47 EDT by Mariya Mcadams MD ID: [id number] Name: JARRED FAIR Race: White Ht: 59.50 in Wt: 219.00 lbs Age: 83 Gender: Female : 1940 Dx: Other forms of dyspnea Smoking Hx: Non-smoker Doctor: PAM MCGILL Test Date: 06/20/2024 Site: Tech: Palmer Catherine PRE-BRONCH POST-BRONCH Piedad LLN Pred ULN %Pred ZScore Piedad %Pred %Chg ZScore SPIROMETRY FVC 1.00 1.43 2.08 2.76 48 -2.77 1.01 48 0 -2.75 FEV1 0.67 1.08 1.61 2.10 41 -2.85 0.66 40 0 -2.87 FEV1/FVC 0.66 0.65 0.79 0.90 84 -1.47 0.65 82 -2 -1.63 FEFMax 3.13 2.47 3.95 5.43 79 -0.92 3.44 87 9 -0.57 FEF50 0.49 0.84 2.45 4.06 20 -2.00 0.37 15 -25 -2.13 FIF50 1.84 1.58 -14 FEF50/FIF50 0.27 90-100 0.23 -12 FIVC 1.09 0.95 -12 GSN96-50 0.33 0.56 1.36 2.58 24 -2.34 0.27 19 -19 -2.59 ExpiredTime 6.23 6.94 11 TimeToFEFMax 0.05 0.04 -19 SHARON 0.02 0.01 -28 VolExtrap% 2 1 -29 LUNG VOLUMES FRC(Pleth) 1.73 1.65 2.51 3.37 68 -1.49 ERV 0.23 0.69 32 RV(Pleth) 1.55 1.57 2.20 2.83 70 -1.71 SVC 1.18 1.43 2.08 2.76 56 -2.30 IC 0.91 1.39 65 TLC(Pleth) 2.64 3.50 4.38 5.26 60 -3.24 RV/TLC(Pleth) 59 39 48 57 121 1.88 LUNG DIFFUSION DLCOunc 9.71 11.21 17.38 23.55 55 -2.04 DLCOStdPB 9.54 11.21 17.38 23.55 54 -2.09 VA 2.15 3.22 4.32 5.43 49 -3.24 Kco 4.43 3.21 4.26 5.46 104 0.25 Comments: Medications and Allergies were reviewed for possible drug interactions per policy. No contraindications or sensitivities were noted. Meds taken: Albuterol 3.5 hours before testing. 2 puffs Albuterol (180 mcg) delivered by MDI via holding chamber. HR pre = 71/min, HR post = /min. Current ATS/ERS acceptability and repeatability standards for spirometry met. Start of test and EOFE criteria met. Current ATS/ERS acceptability and repeatability standards for lung volumes met. Only 1 acceptable DLCO measurement obtained despite patient's best effort. IVC for DLCO 85% of target IVC. Normal [facility] LUNG VOLUMESon 06-20-2024 LUNG VOLUMES [facility] [address], [place] [address] Test Date: 2024-06-20 Pat Name: JARRED FAIR Department: Room: Gender: Female Twister Doffer: : 1940 Requested By: Order Number: [id number] Reading MD: Mariya Mcadams MD Interpretive Statements Medications and Allergies were reviewed for possible drug interactions per policy. No contraindications or sensitivities were noted. Meds taken: Albuterol 3.5 hours before testing. 2 puffs Albuterol (180 mcg) delivered by MDI via holding chamber. HR pre = 71/min, HR post = /min. Current ATS/ERS acceptability and repeatability standards for spirometry met. Start of test and EOFE criteria met. Current ATS/ERS acceptability and repeatability standards for lung volumes met. Only 1 acceptable DLCO measurement obtained despite patient's best effort. IVC for DLCO 85% of target IVC. IMPRESSION: Combined obstruction and restriction. Negative bronchodilator response. Decrease in TLC indicates restriction. The diffusing capacity (uncorrected for hemoglobin) is reduced. The kCO (DLCO/VA) reflects a normal transfer/diffusion of CO from the alveolar regions to the blood. Clinical correlation recommended. Electronically Signed On 06-20-2024 16:18:47 EDT by Mariya Mcadams MD ID: [id number] Name: JARRED FAIR Race: White Ht: 59.50 in Wt: 219.00 lbs Age: 83 Gender: Female : 1940 Dx: Other forms of dyspnea Smoking Hx: Non-smoker Doctor: PAM MCGILL Test Date: 06/20/2024 Site: Tech: Palmer Catherine PRE-BRONCH POST-BRONCH Piedad LLN Pred ULN %Pred ZScore Piedad %Pred %Chg ZScore SPIROMETRY FVC 1.00 1.43 2.08 2.76 48 -2.77 1.01 48 0 -2.75 FEV1 0.67 1.08 1.61 2.10 41 -2.85 0.66 40 0 -2.87 FEV1/FVC 0.66 0.65 0.79 0.90 84 -1.47 0.65 82 -2 -1.63 FEFMax 3.13 2.47 3.95 5.43 79 -0.92 3.44 87 9 -0.57 FEF50 0.49 0.84 2.45 4.06 20 -2.00 0.37 15 -25 -2.13 FIF50 1.84 1.58 -14 FEF50/FIF50 0.27 90-100 0.23 -12 FIVC 1.09 0.95 -12 ZDD27-81 0.33 0.56 1.36 2.58 24 -2.34 0.27 19 -19 -2.59 ExpiredTime 6.23 6.94 11 TimeToFEFMax 0.05 0.04 -19 SHARON 0.02 0.01 -28 VolExtrap% 2 1 -29 LUNG VOLUMES FRC(Pleth) 1.73 1.65 2.51 3.37 68 -1.49 ERV 0.23 0.69 32 RV(Pleth) 1.55 1.57 2.20 2.83 70 -1.71 SVC 1.18 1.43 2.08 2.76 56 -2.30 IC 0.91 1.39 65 TLC(Pleth) 2.64 3.50 4.38 5.26 60 -3.24 RV/TLC(Pleth) 59 39 48 57 121 1.88 LUNG DIFFUSION DLCOunc 9.71 11.21 17.38 23.55 55 -2.04 DLCOStdPB 9.54 11.21 17.38 23.55 54 -2.09 VA 2.15 3.22 4.32 5.43 49 -3.24 Kco 4.43 3.21 4.26 5.46 104 0.25 Comments: Medications and Allergies were reviewed for possible drug interactions per policy. No contraindications or sensitivities were noted. Meds taken: Albuterol 3.5 hours before testing. 2 puffs Albuterol (180 mcg) delivered by MDI via holding chamber. HR pre = 71/min, HR post = /min. Current ATS/ERS acceptability and repeatability standards for spirometry met. Start of test and EOFE criteria met. Current ATS/ERS acceptability and repeatability standards for lung volumes met. Only 1 acceptable DLCO measurement obtained despite patient's best effort. IVC for DLCO 85% of target IVC. Normal [facility] Lipid 1996 panelon 5 Cholesterol [Mass/Vol] 137 mg/dL Normal <[address] [facility] Comment on above: Order Comment: Speci ana Type: BLOOD SPECIMEN Ordering Facility: [facility] Address: [address] [place] [address] Result Comment: <200 mg/dL, Desirable 200-239 mg/dL, Borderline high >239 mg/dL, High Performed By: #### 1 989-3 #### [facility] CLIA [id number] [address] [place] [address] [place] Cholesterol in HDL [Mass/Vol] 38 mg/dL Low >39 [facility] Comment on above: Order Comment: Gen perez Type: BLOOD SPECIMEN Ordering Facility: [facility] Address: [address] [place] [address] Result Comment: 40-5 9 mg/dL, Acceptable >59 mg/dL, High: Negative risk factor for coronary heart disease <40 mg/dL, Low: Positive risk factor for coronary heart disease Performed By: #### 1 989-3 #### [facility] CLIA [id number] [address] [place] [address] STATES OF [facility] Cholesterol in LDL [Mass/Vol] 65 mg/dL Normal <100 [facility] Comment on above: Order Comment: Gen men Type: BLOOD SPECIMEN Ordering Facility: [facility] Address: [address] [place] [address] Result Comment: <100 mg/dL, Optimal 100-129 mg/dL, Near optimal/above optimal 130-159 mg/dL, Borderline high 160-189 mg/dL, High >189 mg/dL, Very high Secondary prevention optimal LDL Cholesterol levels are recommended to be < 70 mg/dL Performed By: #### 1 989-3 #### [facility] CLIA [id number] [address] [place] [address] STATES [facility] Cholesterol in LDL/Cholesterol in HDL [Mass ratio] 1.71 {ratio} Normal <2.54 [facility] Comment on above: Order Comment: Gen perez Type: BLOOD SPECIMEN Ordering Facility: [facility] Address: [address] [place] [address] Result Comment: Refe rence: 1. National Cholesterol Education Program ATP III Guideline At-A-Glance Quick Desk Reference: National Heart, Lung, and Blood [place]. National Institutes of Health. 2001: NIH Publication No. 01-3305. 2. An International Atherosclerosis Society position paper: global recommendations for the management of dyslipidemia: executive summary, Atherosclerosis. 2014: 232(2):410-413. Performed By: #### 1 989-3 #### [facility] CLIA [id number] [address] [place] [address] [place] Cholesterol in VLDL [Mass/Vol] 34 mg/dL High <30 [facility] Comment on above: Order Comment: Gen men Type: BLOOD SPECIMEN Ordering Facility: [facility] Address: [address] [place] [id number] Performed By: #### 1 989-3 #### [facility] CLIA [id number] [address] [place] [address] [place] Cholesterol non HDL [Mass/Vol] 99 mg/dL Normal <130 [facility] Comment on above: Order Comment: Speci men Type: BLOOD SPECIMEN Ordering Facility: [facility] Address: [address] [place] [address] Result Comment: <130 mg/dL, Optimal 130-159 mg/dL, Near optimal/above optimal 160-189 mg/dL, Borderline high 190-219 mg/dL, High >219 mg/dL, Very high Secondary prevention optimal non HDL Cholesterol levels are recommended to be <100 mg/dL Performed By: #### 1 989-3 #### [facility] CLIA [id number] [address] [place] [address] [place] Cholesterol.total/Divya sterol in HDL [Mass ratio] 3.61 {ratio} Normal <5.10 [facility] Comment on above: Order Comment: Speci men Type: BLOOD SPECIMEN Ordering Facility: [facility] Address: [address] [place] [address] Performed By: #### 1 989-3 #### [facility] CLIA [id number] [address] [place] [address] [place] FASTING TIME 12 hrs Normal [facility] Comment on above: Order Comment: Speci men Type: BLOOD SPECIMEN Ordering Facility: [facility] Address: [address] [place], [place] [address] Performed By: #### 1 989-3 #### [facility] CLIA [id number] [address] [place] [address] [place] Triglyceride [Mass/Vol] 170 mg/dL High <150 C [facility] Comment on above: Order Comment: Speci men Type: BLOOD SPECIMEN Ordering Facility: [facility] Address: [address] [place] [address] Result Comment: <150 mg/dL, Normal 150-199 mg/dL, Borderline high 200-499 mg/dL, High >499 mg/dL, Very high Performed By: #### 1 989-3 #### [facility] CLIA [id number] [facility] [address] [id number] [address] [place] No Panel Informationon 06-20 [facility] [address] [facility] [facility] [place] [address] Test Date: 2024-06-20 Pat Name: JARRED FAIR Department: Room: Gender: Female Twister Doffer: : 1940 Requested By: Order Number: [id number] Reading MD: Mariya Mcadams MD Interpretive Statements Medications and Allergies were reviewed for possible drug interactions per policy. No contraindications or sensitivities were noted. Meds taken: Albuterol 3.5 hours before testing. 2 puffs Albuterol (180 mcg) delivered by MDI via holding chamber. HR pre = 71/min, HR post = /min. Current ATS/ERS acceptability and repeatability standards for spirometry met. Start of test and EOFE criteria met. Current ATS/ERS acceptability and repeatability standards for lung volumes met. Only 1 acceptable DLCO measurement obtained despite patient's best effort. IVC for DLCO 85% of target IVC. IMPRESSION: Combined obstruction and restriction. Negative bronchodilator response. Decrease in TLC indicates restriction. The diffusing capacity (uncorrected for hemoglobin) is reduced. The kCO (DLCO/VA) reflects a normal transfer/diffusion of CO from the alveolar regions to the blood. Clinical correlation recommended. Electronically Signed On 06-20-2024 16:18:47 EDT by Mariya Mcadams MD ID: [id number] Name: JARRED FAIR Race: White Ht: 59.50 in Wt: 219.00 lbs Age: 83 Gender: Female : 1940 Dx: Other forms of dyspnea Smoking Hx: Non-smoker Doctor: PAM MCGILL Test Date: 06/20/2024 Site: WO Tech: Palmer Catherine PRE-BRONCH POST-BRONCH Piedad LLN Pred ULN %Pred ZScore Piedad %Pred %Chg ZScore SPIROMETRY FVC 1.00 1.43 2.08 2.76 48 -2.77 1.01 48 0 -2.75 FEV1 0.67 1.08 1.61 2.10 41 -2.85 0.66 40 0 -2.87 FEV1/FVC 0.66 0.65 0.79 0.90 84 -1.47 0.65 82 -2 -1.63 FEFMax 3.13 2.47 3.95 5.43 79 -0.92 3.44 87 9 -0.57 FEF50 0.49 0.84 2.45 4.06 20 -2.00 0.37 15 -25 -2.13 FIF50 1.84 1.58 -14 FEF50/FIF50 0.27 90-100 0.23 -12 FIVC 1.09 0.95 -12 FWP34-81 0.33 0.56 1.36 2.58 24 -2.34 0.27 19 -19 -2.59 ExpiredTime 6.23 6.94 11 TimeToFEFMax 0.05 0.04 -19 SHARON 0.02 0.01 -28 VolExtrap% 2 1 -29 LUNG VOLUMES FRC(Pleth) 1.73 1.65 2.51 3.37 68 -1.49 ERV 0.23 0.69 32 RV(Pleth) 1.55 1.57 2.20 2.83 70 -1.71 SVC 1.18 1.43 2.08 2.76 56 -2.30 IC 0.91 1.39 65 TLC(Pleth) 2.64 3.50 4.38 5.26 60 -3.24 RV/TLC(Pleth) 59 39 48 57 121 1.88 LUNG DIFFUSION DLCOunc 9.71 11.21 17.38 23.55 55 -2.04 DLCOStdPB 9.54 11.21 17.38 23.55 54 -2.09 VA 2.15 3.22 4.32 5.43 49 -3.24 Kco 4.43 3.21 4.26 5.46 104 0.25 Comments: Medications and Allergies were reviewed for possible drug interactions per policy. No contraindications or sensitivities were noted. Meds taken: Albuterol 3.5 hours before testing. 2 puffs Albuterol (180 mcg) delivered by MDI via holding chamber. HR pre = 71/min, HR post = /min. Current ATS/ERS acceptability and repeatability standards for spirometry met. Start of test and EOFE criteria met. Current ATS/ERS acceptability and repeatability standards for lung volumes met. Only 1 acceptable DLCO measurement obtained despite patient's best effort. IVC for DLCO 85% of target IVC. PULMONARY FUNCTION LAB [facility] SPIROMETRY - BASELINE AND PO ST KELVINATORon 06-20-2024 DLCO (ml/min/mmHg) 9.71 ml/min/mmHg [facility] DLCO LLN (ml/min/mmHg) 11.21 ml/min/mmHg C [facility] DLCO PREDICTED (ml/min/mmHg) 17.38 ml/min/mmHg [facility] DLCO ULN (ml/min/mmHg) 23.55 ml/min/mmHg C [facility] DLCO/VA (ml/min/mmHg/L) 0.05 ml/m in/mmHg /L [facility] DLCO/VA PREDICTED (ml/min/mmHg/L) 0.04 ml/min/mmHg /L [facility] DLCO/VAcor (ml/min/mmHg/L) 0.04 ml/min/mmHg /L [facility] DLCOcor (ml/min/mmHg) 9.54 ml/min/mmHg Cl [facility] DLCOcor PREDICTED (ml/min/mmHg) 17.38 ml/min/mmHg [facility] ERV BOX (L) 0.23 L [facility] ERV PREDICTED (L) 0.69 L/S [facility] FEF25% POST (L/S) 1.82 L/S [facility] FEF25% PRE (L/S) 2.1 L/S [facility] QNQ34-73% LLN (L/S) 0.56 L/S [facility] KNZ32-00% POST (L/S) 0.27 L/S [facility] QNK39-66% PRE (L/S) 0.33 L/S [facility] MYN55-75% PREDICTED (L/S) 1.36 L/S [facility] FEF75% LLN (L/S) 0.09 L/S [facility] FEF75% POST (L/S) 0.11 L/S [facility] FEF75% PRE (L/S0 0.11 L/S [facility] FEF75% PREDICTED (L/S) 0.28 L/S [facility] FEF75% ULN (L/S) 0.85 L/S [facility] FET POST (S) 6.94 S [facility] FET PRE (S) 6.23 S [facility] FEV1 LLN (L) 1.08 L [facility] FEV1 PRE (L) 0.67 L [facility] FEV1 PREDICTED (L) 1.61 L [facility] FEV1 ULN (L) 2.1 L [facility] FEV1/FVC LLN (%) 65 % [facility] FEV1/FVC POST (%) 65 % [facility] FEV1/FVC PRE (%) 66 % [facility] FEV1/FVC PREDICTED (%) 79 % [facility] FEV1_POST (L) 0.66 L [facility] FRC Box (L) 1.73 L [facility] FVC LLN (L) 1.43 L [facility] FVC POST (L) 1.01 L [facility] FVC PRE (L) 1 L [facility] FVC PREDICTED (L) 2.08 L [facility] FVC ULN (L) 2.76 L [facility] IC BOX (L) 0.91 L [facility] IC PREDICTED (L) 1.39 L/S [facility] PEF LLN (L/S) 2.47 L/S [facility] PEF POST (L/S) 3.44 L/S [facility] PEF PRE (L/S) 3.13 L/S [facility] PEF ULN (L/S) 5.43 L/S [facility] RV Box (L) 1.55 L [facility] RV Box PREDICTED (L) 2.2 L [facility] RV/TLC Box (%) 59 % [facility] RV/TLC Box PREDICTED (%) 48 % [facility] SVC LLN (L) 1.43 L/S [facility] SVC PREDICTED (L) 2.08 L/S [facility] SVC ULN (L) 2.76 L/S [facility] TLC Box (L) 2.64 L [facility] TLC Box PREDICTED (L) 4.38 L [facility] (L) 2.15 L [facility] VA PREDICTED (L) 4.[address] [facility] VC (L) BOX 1.18 L [facility] SPIROMETRY - BASELINE AND POST DILATOR [facility] [address] [place] [address] Test Date: 2024-06-20 Pat Name: JARRED FAIR Department: Room: Gender: Female Twister Doffer: : 1940 Requested By: Order Number: [id number] Reading MD: Mariya Mcadams MD Interpretive Statements Medications and Allergies were reviewed for possible drug interactions per policy. No contraindications or sensitivities were noted. Meds taken: Albuterol 3.5 hours before testing. 2 puffs Albuterol (180 mcg) delivered by MDI via holding chamber. HR pre = 71/min, HR post = /min. Current ATS/ERS acceptability and repeatability standards for spirometry met. Start of test and EOFE criteria met. Current ATS/ERS acceptability and repeatability standards for lung volumes met. Only 1 acceptable DLCO measurement obtained despite patient's best effort. IVC for DLCO 85% of target IVC. IMPRESSION: Combined obstruction and restriction. Negative bronchodilator response. Decrease in TLC indicates restriction. The diffusing capacity (uncorrected for hemoglobin) is reduced. The kCO (DLCO/VA) reflects a normal transfer/diffusion of CO from the alveolar regions to the blood. Clinical correlation recommended. Electronically Signed On 06-20-2024 16:18:47 EDT by Mariya Mcadams MD ID: [id number] Name: JARRED FAIR Race: White Ht: 59.50 in Wt: 219.00 lbs Age: 83 Gender: Female : 1940 Dx: Other forms of dyspnea Smoking Hx: Non-smoker Doctor: PAM MCGILL Test Date: 06/20/2024 Site: THERESE Fair: Pamler Catherine PRE-BRONCH POST-BRONCH Piedad LLN Pred ULN %Pred ZScore Piedad %Pred %Chg ZScore SPIROMETRY FVC 1.00 1.43 2.08 2.76 48 -2.77 1.01 48 0 -2.75 FEV1 0.67 1.08 1.61 2.10 41 -2.85 0.66 40 0 -2.87 FEV1/FVC 0.66 0.65 0.79 0.90 84 -1.47 0.65 82 -2 -1.63 FEFMax 3.13 2.47 3.95 5.43 79 -0.92 3.44 87 9 -0.57 FEF50 0.49 0.84 2.45 4.06 20 -2.00 0.37 15 -25 -2.13 FIF50 1.84 1.58 -14 FEF50/FIF50 0.27 90-100 0.23 -12 FIVC 1.09 0.95 -12 YRX67-90 0.33 0.56 1.36 2.58 24 -2.34 0.27 19 -19 -2.59 ExpiredTime 6.23 6.94 11 TimeToFEFMax 0.05 0.04 -19 SHARON 0.02 0.01 -28 VolExtrap% 2 1 -29 LUNG VOLUMES FRC(Pleth) 1.73 1.65 2.51 3.37 68 -1.49 ERV 0.23 0.69 32 RV(Pleth) 1.55 1.57 2.20 2.83 70 -1.71 SVC 1.18 1.43 2.08 2.76 56 -2.30 IC 0.91 1.39 65 TLC(Pleth) 2.64 3.50 4.38 5.26 60 -3.24 RV/TLC(Pleth) 59 39 48 57 121 1.88 LUNG DIFFUSION DLCOunc 9.71 11.21 17.38 23.55 55 -2.04 DLCOStdPB 9.54 11.21 17.38 23.55 54 -2.09 VA 2.15 3.22 4.32 5.43 49 -3.24 Kco 4.43 3.21 4.26 5.46 104 0.25 Comments: Medications and Allergies were reviewed for possible drug interactions per policy. No contraindications or sensitivities were noted. Meds taken: Albuterol 3.5 hours before testing. 2 puffs Albuterol (180 mcg) delivered by MDI via holding chamber. HR pre = 71/min, HR post = /min. Current ATS/ERS acceptability and repeatability standards for spirometry met. Start of test and EOFE criteria met. Current ATS/ERS acceptability and repeatability standards for lung volumes met. Only 1 acceptable DLCO measurement obtained despite patient's best effort. IVC for DLCO 85% of target IVC. FVC_PRE (L) : 1.00 L FVC_POST (L) : 1.01 L FVC_PRED (L) : 2.08 L FVC_LLN (L) : 1.43 L FVC_ULN (L) : 2.76 L FEV1_PRE (L) : 0.67 L FEV1_POST (L) : 0.66 L FEV1_PRED (L) : 1.61 L FEV1_LLN (L) : 1.08 L FEV1_ULN (L) : 2.10 L FEV1/FVC_PRE (%) : 66 % FEV1/FVC_POST (%) : 65 % FEV1/FVC_PRED (%) : 79 % FEV1/FVC_LLN (%) : 65 % YJQ30_VJL (L/S) : 2.10 L/S NJO93_AMNP (L/S) : 1.82 L/S OBN00_JTM (L/S) : 0.11 L/S SZP31_KROA (L/S) : 0.11 L/S CWF31_DLPB (L/S) : 0.28 L/S JLE54_OUA (L/S) : 0.09 L/S MDH00_TUA (L/S) : 0.85 L/S APA07-64%_PRE (L/S) : 0.33 L/S JES12-18%_POST (L/S) : 0.27 L/S NVU45-10%_PRED (L/S) : 1.36 L/S JEZ74-61%_LLN (L/S) : 0.56 L/S PEF_PRE (L/S) : 3.13 L/S PEF_POST (L/S) : 3.44 L/S PEFMAX_LLN (L/S) : 2.47 L/S PEFMAX_ULN (L/S) : 5.43 L/S VC BOX (L) : 1.18 L SVC_PRED (L) : 2.08 L/S SVC_LLN (L) : 1.43 L/S SVC_ULN (L/S) : 2.76 L/S IC BOX (L) : 0.91 L IC_PRED (L) : 1.39 L/S ERV BOX (L) : 0.23 L ERV_PREDICTED (L) : 0.69 L/S DLCO (ML/MIN/MMHG) : 9.71 ml/min/mmHg DLCO_PRED (ML/MIN/MMHG) : 17.38 ml/min/mmHg DLCO_LLN(ML/MIN/MMHG) : 11.21 ml/min/mmHg DLCO_ULN (ML/MIN/MMHG) : 23.55 ml/min/mmHg FET_PRE (S) : 6.23 S FET_POST (S) : 6.94 S FRC BOX (L) : 1.73 L RV BOX (L) : 1.55 L RV_PLETH_PRED (L) : 2.20 L TLC BOX (L) : 2.64 L TLC_PLETH_PRED (L) : 4.38 L RV/TLC BOX (%) : 59 % RV_TLC_PLETH_PRED (%) : 48 % VA (L) : 2.15 L VA_PRD (L) : 4.32 L DLCO/VA (ML/MIN/MMHG/L) : 0.05 ml/min/mmHg/L DLCO_VA_PRED (L) : 0.04 ml/min/mmHg/L DLCOCOR (ML/MIN/MMHG) : 9.54 ml/min/mmHg DLCOCOR_PRED (ML/MIN/MMHG) : 17.38 ml/min/mmHg DLCO/VACOR (ML/MIN/MMHG/L) : 0.04 ml/min/mmHg/L [facility] 06-15-2024 DINESH Telephone (INTMWS) JARRED FAIR ([id number]) 1940 F NFR Date Time Provider Department 06/15/24 PAM MCGILL INTMWS During your visit today, we recorded the following information about you: Betzaida Ramirez RN 06/15/2024 10:53 AM Signed Patient calling and asking about chest x-ray results that were done on 06/13/2024. Please review and advise, CARIN Patel Liza D, MD 06/18/2024 1:11 PM Signed Just a small left pleural effusion noted and some basal atelectasis. No consolidation--so no signs of pneumonia. Noted stable cardiomegaly (stable enlarged cardiomediastinal silhouette). Consider further evaluation with PFTs. Also, if shortness of breath with exertion is increased compared to back in May when had last echocardiogram, consider repeat echocardiogram to make sure cardiac function has not decreased. Also, should update labs as ordered to make sure no issues with anemia, etc. have developed since last labs done in February (unless had labs done at outside lab recently) Chikis Toney RN 06/18/2024 1:26 PM Signed Pt called and is notified of providers results and instructions. Pt voices understanding. She states she is having slightly worse Sob with exertion, she states now she is having it inside with less exertion. Did not know if provider wanted to get another Echo. Pt also last had PFTs in 2020, did not know if provider wanted to order these as well. Please call and let Pt know and get scheduled. CARIN Giordano Liza D, MD 06/19/2024 11:05 AM Signed Will start with PFTs since has been a while since last checked and has history of asthma. If not revealing cause for DONALD, then plan on echocardiogram again. Megan Castle LPN 06/19/2024 12:59 PM Signed Patient notified of providers message and verbalized understanding. Encounter routed to PSS to assist patient in scheduling PFT's Betzaida Peters 06/19/2024 1:59 PM Signed Spoke with patient and scheduled. PFTs scheduled for 06/20/24. Allergies As of Date: 06/15/2024 Noted Allergy Reaction FRAGRANCES 12/05/2018 14 - Other: See Comments SIMVASTATIN 06/05/2010 14 - Other: See Comments 17 - Myalgia Comments: Includes rosuvastatin 5mg tried M/W/F JELLY BEANS 06/28/2006 Comments: Throat got real tight and cough could not breath NIFEDIPINE 01/15/2002 Comments: hypotensive, light headed PERFUME 02/01/2023 16 - Unknown SMOKE 02/01/2023 16 - Unknown VINEGAR 02/01/2023 16 - Unknown Date Reviewed: 05/31/2024 Reviewed by: Aida Carmen MA - Fully Assessed Reason for Visit: Results [95] Primary Visit Diagnosis:DONALD (dyspnea on exertion) [R06.09] Other Visit Diagnoses:Mild intermittent asthma without complication (HCC) [J45.20] Class 3 severe obesity due to excess calories with body mass index (BMI) of 40.0 to 44.9 in adult, unspecified whether serious comorbidity present ([facility]) [E66.813, E66.01, Z68.41] Order(s):SPIROMETRY - BASELINE AND POST DILATOR [[id number]] Order #: [id number]: 1 FUTURE LUNG VOLUMES [[id number]] Order #: [id number]: 1 FUTURE LUNG DIFFUSION CAPACITY (DLCO) [[id number]] Order #: [id number]: 1 FUTURE Prescriptions as of 06/19/2024 - carvedilol (COREG) 25 mg tablet Take 25 mg by mouth two times a day with meals. - levothyroxine (SYNTHROID) 137 mcg tablet Take 1 tablet by mouth daily before breakfast. Plus add half pill on Sundays (total 7.5 pills taken per week) - albuterol HFA (VENTOLIN HFA) 90 mcg/actuation inhaler Inhale 2 Puffs as instructed every 4 hours as needed. - montelukast (SINGULAIR) 10 mg tablet Take 1 tablet by mouth once daily. As directed - CPAP Continue CPAP at 9cm H2O with humidification. Refills for Mask (per patient preference) optional chin strap (if indicated) , filters, tubing, humidifier and lifetime supplies. G47.33 - rosuvastatin (CRESTOR) 5 mg tablet Take 1 tablet by mouth two times a week. - Miscellaneous Medical Supply Potassium OTC 1 capsule once daily - Magnesium 250 mg tab Take 250 mg by mouth once daily. - TURMERIC ORAL Take 1 Dose by mouth two times a day. 1 gummie twice daily - ZINC ORAL Take 1 Dose by mouth two times a day. 1 gummi two times daily - ezetimibe (ZETIA) 10 mg tablet Take 10 mg by mouth once daily. 5 days a week - fluticasone (FLONASE) 50 mcg/actuation nasal spray Use 2 Sprays in each nostril once daily as needed for cold/allergy symptoms. Rinse mouth after use. - clobetasol (TEMOVATE) 0.05 % ointment - amLODIPine (NORVASC) 10 mg tablet Take 1 tablet by mouth once daily. (Dr. Olguin) - ubidecarenone (CO Q-10 ORAL) Take by mouth once daily. - lisinopril (ZESTRIL, PRINIVIL) 40 mg tablet Take 1 tablet by mouth once daily. - Multivitamin capsule Take 1 capsule by mouth once daily. - furosemide (LASIX) 40 mg tablet Take 40 mg by mouth once daily. - vitamin e 1,000 unit capsu (more content not included)... Normal [facility] XR CHEST 2V FRONTAL/LATon XR CHEST 2V FRONTAL/LAT * * *Final Repor t* * * DATE OF EXAM: Jun 13 2024 1:12PM WOX [id number] - XR CHEST 2V FRONTAL/LAT / PROCEDURE REASON: Pneumonia of both lower lobes due to infectious organism * * * * Physician Interpretation * * * * EXAMINATION: CHEST RADIOGRAPH (2 VIEW FRONTAL and LATERAL) CLINICAL HISTORY: Pneumonia of both lower lobes due to infectious organism MQ: XC2_6 EXAM DATE/TIME: 06/13/2024 1:12 PM COMPARISON: 05/28/2024 RESULT: Lines, tubes, and devices: None. Lungs and pleura: Small left pleural effusion and basal atelectasis. No consolidation. No lung mass. No pleural effusion. No pneumothorax. Cardiomediastinal silhouette: Stable enlarged cardiomediastinal silhouette. Ascending aortic graft Bones and soft tissues: Unremarkable. IMPRESSION: Small left pleural effusion and basal atelectasis. Cardiomegaly Retail Department Supervisor: ANIA Transcribe Date/Time: Jun 13 2024 3:28P Dictated by : MILTON HENSON MD This examination was interpreted and the report reviewed and electronically signed by: MILTON HENSON MD on Jun 13 2024 3:30PM EST [id number] Normal [facility] XR Chest PA and Lateralon IMPRESSION: Small left pleural effusion and basal atelectasis. Cardiomegaly Retail Department Supervisor: ANIA Transcribe Date/Time: Jun 13 2024 3:28P Dictated by : MILTON HENSON MD This examination was interpreted and the report reviewed and electronically signed by: MILTON HENSON MD on Jun 13 2024 3:30PM EST DIVISION OF RADIOLOGY * * *Final Report* * * DATE OF EXAM: Jun 13 2024 1:12PM WOX [id number] - XR CHEST 2V FRONTAL/LAT / PROCEDURE REASON: Pneumonia of both lower lobes due to infectious organism * * * * Physician Interpretation * * * * EXAMINATION: CHEST RADIOGRAPH (2 VIEW FRONTAL & LATERAL) CLINICAL HISTORY: Pneumonia of both lower lobes due to infectious organism MQ: XC2_6 EXAM DATE/TIME: 06/13/2024 1:12 PM COMPARISON: 05/28/2024 RESULT: Lines, tubes, and devices: None. Lungs and pleura: Small left pleural effusion and basal atelectasis. No consolidation. No lung mass. No pleural effusion. No pneumothorax. Cardiomediastinal silhouette: Stable enlarged cardiomediastinal silhouette. Ascending aortic graft Bones and soft tissues: Unremarkable. DIVISION OF RADIOLOGY Provider, [facility] - 06/13/2024 * * *Final Report* * * DATE OF EXAM: Jun 13 2024 1:12PM WOX [id number] - XR CHEST 2V FRONTAL/LAT / PROCEDURE REASON: Pneumonia of both lower lobes due to infectious organism * * * * Physician Interpretation * * * * EXAMINATION: CHEST RADIOGRAPH (2 VIEW FRONTAL & LATERAL) CLINICAL HISTORY: Pneumonia of both lower lobes due to infectious organism MQ: XC2_6 EXAM DATE/TIME: 06/13/2024 1:12 PM COMPARISON: 05/28/2024 RESULT: Lines, tubes, and devices: None. Lungs and pleura: Small left pleural effusion and basal atelectasis. No consolidation. No lung mass. No pleural effusion. No pneumothorax. Cardiomediastinal silhouette: Stable enlarged cardiomediastinal silhouette. Ascending aortic graft Bones and soft tissues: Unremarkable. IMPRESSION IMPRESSION: Small left pleural effusion and basal atelectasis. Cardiomegaly Retail Department Supervisor: ANIA Transcribe Date/Time: Jun 13 2024 3:28P Dictated by : MILTON HENSON MD This examination was interpreted and the report reviewed and electronically signed by: MILTON HENSON MD on Jun 13 2024 3:30PM EST [facility] Radiology Study observation (narrative) Nic aguilera [facility] XR Chest PA and LateralOrder ed By: [facility] Provider on 06-13-2024 [facility] CNOVon 05-31-2024 CNOV Office Visit (INTMWS ) JARRED FAIR ([id number]) 1940 F NFR Date Time Provider Department 05/31/24 3:00 PM PAM MCGILL INTMWS During your visit today, we recorded the following information about you: Temperature Pulse Respiration Blood pressure 98.7 degrees 75/minute 18/minute 130/44 Weight 98.2 kg Pam Mcgill MD 05/31/2024 3:42 PM Signed This note was created using iGoriter. Subjective Jarred Fair is a 83 year old female. Patient presents with: Follow Up For: [facility] visit 05/28/24-Pneumonia AND SOB SUBJECTIVE: Jarred Fair is a 83 year old year old lady here today for follow up appointment for review of medical conditions. Jarred is a 83-year-old female, with a history of asthma and HTN, presenting for follow-up of dyspnea. Jarred reports improvement in dyspnea, which began 3-4 weeks ago and was more severe than usual. She initially attributed the dyspnea to her weight and postponed seeking medical attention. She denies any cough, fever, or URI symptoms at the onset of dyspnea. She was evaluated in [facility] on 05/28/2022, where she was diagnosed with pneumonia and started on a Z-Minor and Augmentin. She notes that a dry cough began after starting the antibiotics on Tuesday. She also reports experiencing some wheezing at home, for which she has been using her albuterol inhaler, initially prescribed in February. She denies any issues with Flonase. She reports experiencing diarrhea since starting the antibiotics but denies it being intolerable. She also notes experiencing chills at night, but states this is not worse than usual for her. She denies any other signs of infection. She reports that her blood pressure increased around the same time the dyspnea began. She was previously on carvedilol 3.125 mg, which was increased to 25 mg. She denies any issues with the medication adjustment. She also reports some lower extremity edema, which she states is about the same as usual for her. She has a pair of compression socks at home, but finds them difficult to put on. PAST MEDICAL HISTORY Diagnosis Date Allergic rhinitis, cause unspecified Allergic rhinitis Benign neoplasm of colon Disorder of bone and cartilage, unspecified Dysmetabolic syndrome X 06/28/2006 Started on Januvia by Dr. Toure for DM prevention since did not tolerate metformin Nonrheumatic aortic insufficiency with aortic stenosis Dr. Olguin (patient support assistant). S/P [facility] 12/2016 Obesity, unspecified Other diseases of pharynx, not elsewhere classified(478.29) Personal history of colonic polyps Pure hyperglyceridemia Snoring Unspecified asthma(493.90) Unspecified cardiovascular disease AI and some CAD on cath (Clau follows) Unspecified essential hypertension Unspecified hypothyroidism Current Outpatient Medications Medication Sig carvedilol (COREG) 25 mg tablet Take 25 mg by mouth two times a day with meals. azithromycin (ZITHROMAX) 250 mg tablet Take 2 tablets by mouth once daily for 1 day, THEN 1 tablet once daily for 4 days. amoxicillin-clavulanat e potassium (AUGMENTIN) 875-125 mg per tablet Take 1 tablet by mouth two times a day for 5 days. levothyroxine (SYNTHROID) 137 mcg tablet Take 1 tablet by mouth daily before breakfast. Plus add half pill on Sundays (total 7.5 pills taken per week) albuterol HFA (VENTOLIN HFA) 90 mcg/actuation inhaler Inhale 2 Puffs as instructed every 4 hours as needed. montelukast (SINGULAIR) 10 mg tablet Take 1 tablet by mouth once daily. As directed CPAP Continue CPAP at 9cm H2O with humidification. Refills for Mask (per patient preference) optional chin strap (if indicated) , filters, tubing, humidifier and lifetime supplies. G47.33 rosuvastatin (CRESTOR) 5 mg tablet Take 1 tablet by mouth two times a week. Miscellaneous Medical Supply Potassium OTC 1 capsule once daily Magnesium 250 mg tab Take 250 mg by mouth once daily. TURMERIC ORAL Take 1 Dose by mouth two times a day. 1 gummie twice daily ZINC ORAL Take 1 Dose by mouth two times a day. 1 gummi two times daily fluticasone (FLONASE) 50 mcg/actuation nasal spray Use 2 Sprays in each nostril once daily as needed for cold/allergy symptoms. Rinse mouth after use. clobetasol (TEMOVATE) 0.05 % ointment amLODIPine (NORVASC) 10 mg tablet Take 1 tablet by mouth once daily. (Dr. Olguin) ubidecarenone (CO Q-10 ORAL) Take by mouth once daily. lisinopril (ZESTRIL, PRINIVIL) 40 mg tablet Take 1 tablet by mouth once daily. Multivitamin capsule Take 1 capsule by mouth once daily. furosemide (LASIX) 40 mg tablet Take 40 mg by mouth once daily. vitamin e 1,000 unit capsule Take 1,000 Units by mouth once daily. BIOTIN ORAL Take by mouth. VITAMIN A PALMITATE ORAL Take by mouth. Cetirizine 10 mg cap Take by mouth. Cholecalciferol, Vitamin D3, 1,000 unit cap Take 1 capsule by mouth once daily. aspir (more content not included)... Normal [facility] CNOVon 05-28-2024 CNOV Office Visit (UCWSTR ) JARRED FAIR ([id number]) 1940 F NFR Date Time Provider Department 05/28/24 1:15 PM ROMARIO HURST UCWSTR During your visit today, we recorded the following information about you: Temperature Pulse Respiration Blood pressure 97.3 degrees 65/minute 18/minute 122/64 Weight 99.7 kg Romario Hurst APRN.CNP 05/28/2024 6:05 PM Signed [facility] Subjective HPI HPI Jarred Fair is a 83 year old female who presents today for CC of cough, sob, wheezing. This started 3 weeks ago. Has tried otc medication and asthma medication. Symptoms are worsened by nothing. Risk factors hx of asthma. nonsmoker. .Patient presents with: Cough: Cough and SOB x 3-4 weeks PAST MEDICAL HISTORY Diagnosis Date Allergic rhinitis, cause unspecified Allergic rhinitis Benign neoplasm of colon Disorder of bone and cartilage, unspecified Dysmetabolic syndrome X 06/28/2006 Started on Januvia by Dr. Toure for DM prevention since did not tolerate metformin Nonrheumatic aortic insufficiency with aortic stenosis Dr. Olguin (patient support assistant). S/P [facility] 12/2016 Obesity, unspecified Other diseases of pharynx, not elsewhere classified(478.29) Personal history of colonic polyps Pure hyperglyceridemia Snoring Unspecified asthma(493.90) Unspecified cardiovascular disease AI and some CAD on cath (Clau follows) Unspecified essential hypertension Unspecified hypothyroidism PAST SURGICAL HISTORY Procedure Laterality Date CHOLECYSTECTOMY Cholecystectomy COLONOSCOPY FLX DX W/COLLJ SPEC WHEN PFRMD 05/13/2000 Colonoscopy COLONOSCOPY FLX DX W/COLLJ SPEC WHEN PFRMD 06/15/2006 Colonoscopy- TA polyp COLONOSCOPY FLX DX W/COLLJ SPEC WHEN PFRMD 05/22/2015 Colonoscopy COLSC FLX W/RMVL OF TUMOR POLYP LESION SNARE TQ 03/27/2010 COLSC FLX W/RMVL OF TUMOR POLYP LESION SNARE TQ 05/28/2020 DILATION AND CURETTAGE DXAND/THER NONOBSTETRIC Dilation AND curettage EYE EXAM AND TREATMENT 01/07/2012 No diabetic retinopathy detected LIG/TRNSXJ FLP TUBE ABDL/VAG APPR UNI/BI Tubal ligation PAST SURGICAL HISTORY OF 02/20/2002 parathyroid resection (Dr. 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 Ferguson took 3 skin biopsies PAST SURGICAL HISTORY OF 12/22/2016 TAVR STRESS TEST 01/12/2016 ALLERGIES Fragrances, Simvastatin, Jelly Beans, Nifedipine, Perfume, Smoke, and Vinegar MEDICATIONS levothyroxine (SYNTHROID) 137 mcg tablet Take 1 tablet by mouth daily before breakfast. Plus add half pill on Sundays (total 7.5 pills taken per week) albuterol HFA (VENTOLIN HFA) 90 mcg/actuation inhaler Inhale 2 Puffs as instructed every 4 hours as needed. montelukast (SINGULAIR) 10 mg tablet Take 1 tablet by mouth once daily. As directed CPAP Continue CPAP at 9cm H2O with humidification. Refills for Mask (per patient preference) optional chin strap (if indicated) , filters, tubing, humidifier and lifetime supplies. G47.33 rosuvastatin (CRESTOR) 5 mg tablet Take 1 tablet by mouth two times a week. Miscellaneous Medical Supply Potassium OTC 1 capsule once daily Magnesium 250 mg tab Take 250 mg by mouth once daily. TURMERIC ORAL Take 1 Dose by mouth two times a day. 1 gummie twice daily ZINC ORAL Take 1 Dose by mouth two times a day. 1 gummi two times daily ezetimibe (ZETIA) 10 mg tablet Take 10 mg by mouth once daily. 5 days a week fluticasone (FLONASE) 50 mcg/actuation nasal spray Use 2 Sprays in each nostril once daily as needed for cold/allergy symptoms. Rinse mouth after use. clobetasol (TEMOVATE) 0.05 % ointment amLODIPine (NORVASC) 10 mg tablet Take 1 tablet by mouth once daily. (Dr. Olguin) ubidecarenone (CO Q-10 ORAL) Take by mouth once daily. lisinopril (ZESTRIL, PRINIVIL) 40 mg tablet Take 1 tablet by mouth once daily. Multivitamin capsule Take 1 capsule by mouth once daily. furosemide (LASIX) 40 mg tablet Take 40 mg by mouth once daily. vitamin e 1,000 unit capsule Take 1,000 Units by mouth once daily. BIOTIN ORAL Take by mouth. VITAMIN A PALMITATE ORAL Take by mouth. Cetirizine 10 mg cap Take by mouth. Cholecalciferol, Vitamin D3, 1,000 unit cap Take 1 capsule by mouth once daily. aspirin, enteric coated (ASPIRIN, ENTERIC COATED) 81 mg EC tablet Take 1 tablet by mouth once daily. COMPOUNDED PRESCRIPTION CPAP head gear Diagnosis :OPHELIA 327.23 OMEGA-3 FATTY ACIDS-FISH OIL 300 MG-1,000 MG CAP Take one(1) tablet daily. diphenhydramine hcl(BENADRYL 25 MG CAP) Take one(1) tablet daily at bedtime as necessary (uses 5-6 x's a week) carvedilol (COREG) 25 mg tablet Take 25 mg by mouth two times a day with meals. carvedilol (COREG) 3.125 mg tablet Take 1 tablet by mouth two times a day. (Patient (more content not included)... Normal [facility] XR CHEST 2V FRONTAL/LATon XR CHEST 2V FRONTAL/LAT * * *Final Repor t* * * DATE OF EXAM: May 28 2024 1:46PM WOX [id number] - XR CHEST 2V FRONTAL/LAT / PROCEDURE REASON: Wheeze * * * * Physician Interpretation * * * * EXAMINATION: CHEST RADIOGRAPH (2 VIEW FRONTAL and LATERAL) CLINICAL HISTORY: Wheeze MQ: XC2_6 EXAM DATE/TIME: 05/28/2024 1:46 PM COMPARISON: No relevant prior studies available. RESULT: Lines, tubes, and devices: Status post transcatheter aortic valve replacement. Lungs and pleura: There are questionable hazy opacities in the bilateral lower lungs. A bandlike opacity noted in the right lower lung, likely representing atelectasis. No visible pleural effusions or pneumothorax. Cardiomediastinal silhouette: Mild prominence of the cardiac silhouette is noted. There are are atherosclerotic calcifications in the thoracic aorta. Bones and soft tissues: The spine shows degenerative changes. IMPRESSION: Questionable hazy opacities in the bilateral lower lungs. Consider short-term follow-up. Mild prominence of the cardiac silhouette. Retail Department Supervisor: ANIA Transcribe Date/Time: May 28 2024 2:30P Dictated by : YRIS MISHRA MD This examination was interpreted and the report reviewed and electronically signed by: YRIS MISHRA MD on May 28 2024 2:33PM EST [id number] Normal [facility] XR Chest PA and Lateralon IMPRESSION: Questionable hazy opacities in the bilateral lower lungs. Consider short-term follow-up. Mild prominence of the cardiac silhouette. Retail Department Supervisor: ANIA Transcribe Date/Time: May 28 2024 2:30P Dictated by : YRIS MISHRA MD This examination was interpreted and the report reviewed and electronically signed by: YRIS MISHRA MD on May 28 2024 2:33PM [facility] DIVISION OF RADIOLOGY * * *Final Report* * * DATE OF EXAM: May 28 2024 1:46PM WOX [id number] - XR CHEST 2V FRONTAL/LAT / PROCEDURE REASON: Wheeze * * * * Physician Interpretation * * * * EXAMINATION: CHEST RADIOGRAPH (2 VIEW FRONTAL & LATERAL) CLINICAL HISTORY: Wheeze MQ: XC2_6 EXAM DATE/TIME: 05/28/2024 1:46 PM COMPARISON: No relevant prior studies available. RESULT: Lines, tubes, and devices: Status post transcatheter aortic valve replacement. Lungs and pleura: There are questionable hazy opacities in the bilateral lower lungs. A bandlike opacity noted in the right lower lung, likely representing atelectasis. No visible pleural effusions or pneumothorax. Cardiomediastinal silhouette: Mild prominence of the cardiac silhouette is noted. There are are atherosclerotic calcifications in the thoracic aorta. Bones and soft tissues: The spine shows degenerative changes. DIVISION OF RADIOLOGY Provider, [facility] - 05/28/2024 * * *Final Report* * * DATE OF EXAM: May 28 2024 1:46PM WOX 5291 - XR CHEST 2V FRONTAL/LAT / PROCEDURE REASON: Wheeze * * * * Physician Interpretation * * * * EXAMINATION: CHEST RADIOGRAPH (2 VIEW FRONTAL & LATERAL) CLINICAL HISTORY: Wheeze MQ: XC2_6 EXAM DATE/TIME: 05/28/2024 1:46 PM COMPARISON: No relevant prior studies available. RESULT: Lines, tubes, and devices: Status post transcatheter aortic valve replacement. Lungs and pleura: There are questionable hazy opacities in the bilateral lower lungs. A bandlike opacity noted in the right lower lung, likely representing atelectasis. No visible pleural effusions or pneumothorax. Cardiomediastinal silhouette: Mild prominence of the cardiac silhouette is noted. There are are atherosclerotic calcifications in the thoracic aorta. Bones and soft tissues: The spine shows degenerative changes. IMPRESSION IMPRESSION: Questionable hazy opacities in the bilateral lower lungs. Consider short-term follow-up. Mild prominence of the cardiac silhouette. Retail Department Supervisor: ANIA Transcribe Date/Time: May 28 2024 2:30P Dictated by : YRIS MISHRA MD This examination was interpreted and the report reviewed and electronically signed by: YRIS MISHRA MD on May 28 2024 2:33PM EST [facility] Radiology Study observation (narrative) [facility] XR Chest PA and LateralOrder ed By: [facility] Provider on 05-28-2024 [facility] Echo Complete W/ Contraston 05-23-2024 Echo Complete W/ Contrast [facility] Cardiovascular Services [address] [place] [address] Echo Complete W/ Contrast 05/23/24 0859 MR#: [id number] Acct: [id number] Name: FRANK FAIR Rep #: [id number] : 1940 83 From: Reggie Olguin MD Attending Dr: Dr. Reggie Olguin MD Status: REG C Ordering Dr: Reggie Olguin MD Date: 05/23/24 Location: [facility] Sex: F C Admitted: Reason For Study Reason For Study: PROSTHETIC HEART VALVE Procedure This was a 2D Doppler, Color Flow transthoracic echocardiogram. The study was technically difficult. DUE TO BODY HABITUS. Contrast injection was performed. Exam performed in department. Left Ventricle Normal LV size. Left ventricular systolic function is normal. The left ventricular ejection fraction is 65 %. No regional wall motion abnormalities noted. Right Ventricle Normal RV size. Normal systolic function. Atria The left atrium is mildly enlarged. Normal right atrium. Mitral Valve Normal mitral valve. Tricuspid Valve Normal tricuspid valve. Aortic Valve Peak aortic valve gradient 22 mmHg. Mean aortic valve gradient 11 mmHg. Bioprosthetic aortic valve. Pulmonic Valve Normal pulmonic valve. Great Vessels Normal aortic root. The pulmonary artery is normal size. Inferior vena cava collapse with respiration. Pericardium/Pleural No pericardial effusion. Medication 22 gauge I.V. with prn adaptor inserted into right arm. Diluted definity 1.5ml given slow IV push to enhance endocardial definition. MMode/2D Measurements Calculations LVIDd: 4.4 cm IVSd: 1.1 cm LVOT diam: 1.9 cm LVIDs: 2.5 cm LVPWd: 1.1 cm RVDd: 3.4 cm FS: 43.1 % LVOT area: 2.9 cm2 Ao root diam: 3.0 cm LAV(MOD-bp): 78.7 ml LVAd ap4: 35.8 cm2 LAV(MOD-bp) Indexed: 40.9 ml/m2 LVLd ap4: 8.9 cm LAV(MOD-sp2): 70.5 ml EDV(MOD-sp4): 118.8 ml LAV(MOD-sp4): 73.7 ml EDV(sp4-el): 122.0 ml LVAs ap4: 18.2 cm2 LVLs ap4: 7.2 cm ESV(MOD-sp4): 39.9 ml ESV(sp4-el): 39.4 ml EF(MOD-sp4): 66.4 % EF(sp4-el): 67.7 % LVAd ap2: 27.3 cm2 SV(MOD-sp4): 78.9 ml SV(MOD-sp2): 47.6 ml LVLd ap2: 8.3 cm SI(MOD-sp4): 41.0 ml/m2 SI(MOD-sp2): 24.7 ml/m2 EDV(MOD-sp2): 77.3 ml EDV(sp2-el): 75.9 ml LVAs ap2: 15.9 cm2 LVLs ap2: 7.1 cm ESV(MOD-sp2): 29.8 ml ESV(sp2-el): 30.4 ml EF(MOD-sp2): 61.5 % SV(sp4-el): 82.5 ml LA dimension(2D): 3.6 cm LA A4 area: 23.6 cm2 RA A4 area: 16.5 cm2 TAPSE: 3.0 cm Time Measurements MV dec time: 0.14 sec Doppler Measurements Calculations MV E max dada: 98.8 cm/sec Lat Peak E' Dada: 5.8 cm/sec Med Peak E' Dada: 6.4 cm/sec MV A max dada: 100.5 cm/sec E/E' lat: 17.0 E/E' med: 15.5 MV E/A: 0.98 Ao V2 max: 237.5 cm/sec AI max dada: 338.8 cm/sec MV dec slope: 721.0 cm/sec2 Ao max P.6 mmHg AI max P.0 mmHg Ao V2 mean: 157.0 cm/sec Ao mean P.2 mmHg AI dec slope: 355.1 cm/sec2 Ao V2 VTI: 52.5 cm AI P1/2t: 279.4 msec AV (velocity ratio): 0.78 AVELINO(I,D): 2.3 cm2 AVELINO(V,D): 2.1 cm2 LV V1 max: 171.1 cm/sec SV(LVOT): 121.2 ml PA V2 max: 92.6 cm/sec LV V1 max P.7 mmHg LV V1 mean P.7 mmHg LV V1 mean: 121.4 cm/sec LV V1 VTI: 41.2 cm ECHO/Echo Complete W/ Contrast Interpretation Summary Normal LV size. Left ventricular systolic function is normal. The left ventricular ejection fraction is 65 %. Bioprosthetic aortic valve. Mean aortic valve gradient 11 mmHg. Ordering Physician: Reggie Olguin Referring Physician: Pam Mcgill Performed By: Delisa Ascencio, RDCS, RVT 05/23/24 1240 Date Reggie Olguin MD CC: Dr. Reggie Olguin MD; Dr. Pam Mcgill MD Date Dictated: 05/23/24 0859 Date Transcribed: 05/23/24 1240 Retail Department Supervisor: Signed Normal [facility] Echocardiogram study reportO rdered By: Reggie Olguin on 05-23-2024 Study report [facility] Cardiovascular Services [address] [place] [address] Echo Complete W/ Contrast 05/23/2459 MR#: [id number] Acct: [id number] Name: FRANK FAIR Rep #:[id number] : 1940 83 From: Reggie Aguilera Attending Dr: Dr. Reggie Olguin MD S tatus: REG CLI Ordering Dr: Reggie Olguin MD Date: Location: [facility] Sex: F C Admitted: Reason For Study Reason For Study: PROSTHETIC HEART VALVE Procedure This was a 2D Doppler, Color Flow transthoracic echocardiogram. The study was technically difficult. DUE TO BODY HABITUS. Contrast injection was performed. Exam performed in department. Left Ventricle Normal LV size. Left ventricular systolic function is normal. The left ventricular ejection fraction is 65 %. No regional wall motion abnormalities noted. Right Ventricle Normal RV size. Normal systolic function. Atria The left atrium is mildly enlarged. Normal right atrium. Mitral Valve Normal mitral valve. Tricuspid Valve Normal tricuspid valve. Aortic Valve Peak aortic valve gradient 22 mmHg. Mean aortic valve gradient 11 mmHg. Bioprosthetic aortic valve. Pulmonic Valve Normal pulmonic valve. Great Vessels Normal aortic root. The pulmonary artery is normal size. Inferior vena cava collapse with respiration. Pericardium/Pleural No pericardial effusion. Medication 22 gauge I.V. with prn adaptor inserted into right arm. Diluted definity 1.5ml given slow IV push to enhance endocardial definition. MMode/2D Measurements & Calculations LVIDd: 4.4 cm IVSd: 1.1 cm LVOT diam: 1.9 cm LVIDs: 2.5 cm LVPWd: 1.1 cm RVDd: 3.4 cm FS: 43.1 % LVOT area: 2.9 cm2 Ao root diam: 3.0 cm LAV(MOD-bp): 78.7 ml LVAd ap4: 35.8 cm2 LAV(MOD-bp) Indexed: 40.9 ml/m2 LVLd ap4: 8.9 cm LAV(MOD-sp2): 70.5 ml EDV(MOD-sp4): 118.8 ml LAV(MOD-sp4): 73.7 ml EDV(sp4-el): 122.0 ml LVAs ap4: 18.2 cm2 LVLs ap4: 7.2 cm ESV(MOD-sp4): 39.9 ml ESV(sp4-el): 39.4 ml EF(MOD-sp4): 66.4 % EF(sp4-el): 67.7 % LVAd ap2: 27.3 cm2 SV(MOD-sp4): 78.9 ml SV(MOD-sp2): 47.6 ml LVLd ap2: 8.3 cm SI(MOD-sp4): 41.0 ml/m2 SI(MOD-sp2): 24.7 ml/m2 EDV(MOD-sp2): 77.3 ml EDV(sp2-el): 75.9 ml LVAs ap2: 15.9 cm2 LVLs ap2: 7.1 cm ESV(MOD-sp2): 29.8 ml ESV(sp2-el): 30.4 ml EF(MOD-sp2): 61.5 % SV(sp4-el): 82.5 ml LA dimension(2D): 3.6 cm LA A4 area: 23.6 cm2 RA A4 area: 16.5 cm2 TAPSE: 3.0 cm Time Measurements MV dec time: 0.14 sec Doppler Measurements & Calculations MV E max dada: 98.8 cm/sec Lat Peak E' Dada: 5.8 cm/sec Med Peak E' Dada: 6.4 cm/sec MV A max dada: 100.5 cm/sec E/E' lat: 17.0 E/E' med: 15.5 MV E/A: 0.98 Ao V2 max: 237.5 cm/sec AI max dada: 338.8 cm/sec MV dec slope: 721.0 cm/sec2 Ao max P.6 mmHg AI max P.0 mmHg Ao V2 mean: 157.0 cm/sec Ao mean P.2 mmHg AI dec slope: 355.1 cm/sec2 Ao V2 VTI: 52.5 cm AI P1/2t: 279.4 msec AV (velocity ratio): 0.78 AVELINO(I,D): 2.3 cm2 AVELINO(V,D): 2.1 cm2 LV V1 max: 171.1 cm/sec SV(LVOT): 121.2 ml PA V2 max: 92.6 cm/sec LV V1 max P.7 mmHg LV V1 mean P.7 mmHg LV V1 mean: 121.4 cm/sec LV V1 VTI: 41.2 cm ECHO/Echo Complete W/ Contrast Interpretation Summary Normal LV size. Left ventricular systolic function is normal. The left ventricular ejection fraction is 65 %. Bioprosthetic aortic valve. Mean aortic valve gradient 11 mmHg. Ordering Physician: Reggie Olguin Referring Physician: Pam Mcgill Performed By: Delisa Ascencio, SUKUMAR, RVT 05/23/24 1240 Date _ Reggie Olguin MD CC: Dr. Reggie Olguin MD; Dr. 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 [place] [address] OFFICE VISIT Date of Service: 04/17/24 MR#: [id number] Acct: [id number] Name: FRANK FAIR Rep #: [id number] 2 : 1940 Provider: Dr. Reggie Olguin MD Age/Sex: 83/F Location: [facility] Status: Signed HPI HPI History of Present Illness Details: JARRED FAIR, is a 83 F who presents to the office today for a cardiovascular outpatient follow-up. She has a history of severe aortic stenosis with mild coronary artery disease. She had a TAVR procedure done at [facility] in December 2016. Her one year echocardiogram in December 2017 at [facility] demonstrated an ejection fraction of 60%, normal diastolic function and normal prosthetic aortic valve with minimal gradient and no aortic regurgitation. She had a recent repeat echo in March 2023 demonstrating an ejection fraction of 70% and a mean aortic valve gradient of 12 mmHg. From a cardiac standpoint, the patient is doing well. She denies any palpitations, chest pain, pressure or heaviness. She still complains of some shortness of breath with exertion but , Orthopnea, and PND. She does not have bleeding issues; no blood in urine, stool or nosebleeds. She does acknowledge a slight decrease in energy level. She does have myalgias. She states she has been off and on rosuvastatin due to myalgias. She denies claudication. She does not have edema, or sudden weight gain. She denies dizziness, lightheadedness, syncopal or near syncopal episodes, and headaches. 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 Accompanied by: Self Is patient in pain?: No Allergies Environmental Allergies: Uncoded Allergy (Verified 04/17/24 09:52) Anaphylaxis rosuvastatin (From Crestor) Adverse Reaction (Intermediate, Verified 04/17/24 09:52) Myalgias nifedipine Adverse Reaction (Verified 04/17/24 09:52) Unknown simvastatin (From Zocor) Adverse Reaction (Verified 04/17/24 09:52) Myalgias Medications ???Medication ???Instructions ???Recorded ???Confirmed ???Type albuterol sulfate 90 mcg/actuation 1 puff inhalation Q4H PRN PRN 04/17/24 History aerosol inhaler Asthma biotin 5 mg tablet 5 mg PO DAILY 08/06/16 04/17/24 Hi story cholecalciferol (vitamin D3) 25 1,000 unit PO DAILY 08/06/1604/17 History mcg (1,000 unit) tablet montelukast 10 mg tablet 10 mg PO DAILY 08/06/16 04/17/24 H istory omega-3 fatty acids-fish oil 300 1 ea PO DAILY 08/06/16 04/17/24 Hi story mg-1,000 mg capsule vitamin A 2,400 mcg capsule 8,000 unit PO DAILY 08/06/1604/17 History vitamin E mixed 1,000 unit capsule 1,000 unit PO DAILY 08/06/1601/29 History multivitamin 1 tab PO QDAY 02/16/17 04/17/24 Hi story levothyroxine 137 mcg capsule 137 mcg PO QDAY 05/11/17 04/17/24 History aspirin 81 mg tablet,delayed 81 mg PO DAILY@0800 #90 tabs 02/1104/17/24 Rx release clobetasol 0.05 % topical ointment 1 applic topical DAILY 02/11/22 04/17/24 History zinc gluconate 50 mg tablet 50 mg PO DAILY 02/11/22 04/17/24 H istory carvedilol 6.25 mg tablet 6.25 mg PO BID #180 tabs 01/26/24 04/17/24 Rx lisinopril 40 mg tablet 40 mg PO DAILY #90 tabs 01/26/24 0 04/17/24 Rx amlodipine 10 mg tablet 10 mg PO DAILY #90 tabs 04/12/24 0 04/17/24 Rx ezetimibe 10 mg tablet (Zetia) 10 mg PO DAILY #90 tabs 04/12/24 0 04/17/24 Rx furosemide 40 mg tablet 40 mg PO DAILY #90 tabs 04/12/24 0 04/17/24 Rx cetirizine 10 mg tablet 10 mg PO QDAY PRN 04/17/24 5 History coenzyme Q10 30 mg capsule (Co 30 mg PO QDAY 04/17/24 04/17/24 Hi story Q-10) magnesium 250 mg tablet 250 mg PO QDAY 04/17/24 04/17/24 H istory potassium chloride 10 mEq 10 meq PO QDAY 04/17/24 04/17/24 H istory capsule,extended release rosuvastatin 5 mg tablet 5 mg PO .Mon/Thurs 04/17/24 Histo ry Have you fallen in the past year?: Yes PFSH Medical History Nonrheumatic aortic (valve) stenosis Atherosclerosis of coronary artery of [place] heart without angina pectoris Obesity 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rtery with unstable angina pectoris OPHELIA (obstructive sleep apnea) Essential hypertension Fatigue Family history of hypertension Exertional shortness of breath Exertional chest pain Dyspnea on exertion Dizziness and giddiness Hyperlipidemia Carotid bruit Diabetes mellitus Hypokalemia Surgical History History of left heart catheterization ( (more content not included)... Normal [facility] 02-24-2024 [facility] Office Visit (INTMWS ) JARRED FAIR ([id number]) 1940 F NFR Date Time Provider Department 02/24/24 9:00 AM PAM MCGILL INTMWS During your visit today, we recorded the following information about you: Temperature Pulse Respiration Blood pressure 97 degrees 77/minute 16/minute 128/68 Weight 98.3 kg Pam Mcgill MD 02/24/2024 10:07 AM Signed This note was created using iGoriter. Subjective Jarred Fair is a 83 year old female. Patient presents with: Follow up 4 month SUBJECTIVE: Jarred Fair is a 83 year old year old lady here today for 4 month follow up appointment for review of medical conditions. Jarred Fair is an 83-year-old female with a history of OPHELIA, asthma, HTN, HLD, DM, and osteoporosis, presenting for a 4-month follow-up visit. Jarred reports consistent use of her CPAP machine at a setting of 9 cm H2O and is benefiting from its use. She requests refills for her CPAP supplies, including the mask, chin strap, filters, and humidifier. She also requests refills for her albuterol and Singulair, which are managed through [facility]. She confirms that her current supply of three Ventolin inhalers with one refill usually lasts her the entire year. She is currently taking rosuvastatin 5 mg tablets twice weekly, managed by Dr. Olguin, and has sufficient refills. She is also on lisinopril 40 mg daily, Lasix 40 mg daily, and Zetia five days a week. She takes carvedilol 3.125 mg twice daily, with a recent prescription adjustment to this dosage. She is using an vzhk-yok-mvvbefe shampoo instead of clobetasol and is taking auob-zfl-ndkaqvg vitamin D, cetirizine, aspirin, omega-3 oils, CoQ10, a multivitamin, magnesium, vitamin A, vitamin E, and zinc. She has discontinued apple cider vinegar and glucosamine chondroitin, opting for turmeric instead, which she finds more effective. She has also added an qgmj-fot-huqsqop potassium supplement, one capsule daily, since January. Jarred reports sinus drainage since , which she attributes to allergies. She is currently using Flonase twice a week, saline solution at night, and Zyrtec routinely. She denies any pain or pressure in the sinuses, teeth aching, gum aching, fevers, or chills. She also reports swelling in her lower extremities, which she notes is slightly worse at night. She has ordered support socks and has been wearing an ankle brace, but found it too tight by night and decided to switch to the support socks. She denies checking her blood pressure at home recently but reports it has been doing okay when she does check it. She has not seen her eye doctor, Dr. Castañeda, this year but plans to call and schedule an appointment. She declines a flu shot today but is interested in getting a tetanus shot at the pharmacy. She is also considering the shingles and RSV vaccines. PAST MEDICAL HISTORY Diagnosis Date Allergic rhinitis, cause unspecified Allergic rhinitis Benign neoplasm of colon Disorder of bone and cartilage, unspecified Dysmetabolic syndrome X 06/28/2006 Started on Januvia by Dr. Toure for DM prevention since did not tolerate metformin Nonrheumatic aortic insufficiency with aortic stenosis Dr. Olguin (patient support assistant). S/P [facility] 12/2016 Obesity, unspecified Other diseases of pharynx, not elsewhere classified(478.29) Personal history of colonic polyps Pure hyperglyceridemia Snoring Unspecified asthma(493.90) Unspecified cardiovascular disease AI and some CAD on cath ([facility] follows) Unspecified essential hypertension Unspecified hypothyroidism Current Outpatient Medications Medication Sig Magnesium 250 mg tab Take 250 mg by mouth once daily. TURMERIC ORAL Take 1 Dose by mouth two times a day. 1 gummie twice daily ZINC ORAL Take 1 Dose by mouth two times a day. 1 gummi two times daily levothyroxine (SYNTHROID) 137 mcg tablet Take 1 tablet by mouth daily before breakfast. Plus add half pill on Sundays (total 7.5 pills taken per week) ezetimibe (ZETIA) 10 mg tablet Take 10 mg by mouth once daily. 5 days a week fluticasone (FLONASE) 50 mcg/actuation nasal spray Use 2 Sprays in each nostril once daily as needed for cold/allergy symptoms. Rinse mouth after use. clobetasol (TEMOVATE) 0.05 % ointment amLODIPine (NORVASC) 10 mg tablet Take 1 tablet by mouth once daily. (Dr. Olguin) ubidecarenone (CO Q-10 ORAL) Take by mouth once daily. lisinopril (ZESTRIL, PRINIVIL) 40 mg tablet Take 1 tablet by mouth once daily. Multivitamin capsule Take 1 capsule by mouth once daily. furosemide (LASIX) 40 mg tablet Take 40 mg by mouth once daily. vitamin e 1,000 unit capsule Take 1,000 Units by mouth once daily. BIOTIN ORAL Take by mouth. VITAMIN A PALMITATE ORAL Take by mouth. Cetirizine 10 mg cap Take by mouth. Cholecalciferol, Vitamin D3, 1,000 unit cap Take 1 capsule by mouth once daily. as (more content not included)... Normal [facility] 25(OH)D3 [facility] 2023 25-hydroxyvitamin D3 [Mass/Vol] 44.6 ng/mL Normal 31.0-80.0 [facility] Comment on above: Order Comment: Gen perez Type: BLOOD SPECIMENOrdering Facility: [facility] Address: [address] [place] [address] Performed By: #### 1 989-3 ####[facility] LABCLIA [id number] [place] [address] [place] ALBUMIN/CREATININE RATIO, [facility] 02-20-2024 Albumin DL <= 20 mg/L (U) [Mass/Vol] 40.0 mg/L Normal [facility] Comment on above: Order Comment: Gen perez Type: BLOOD SPECIMEN [facility] Address: [address] [place] [address] Performed By: #### 1 989-3 #### [facility] CLIA [id number] [address] [place] [address] [place] Albumin/Creatinine (U) [Mass ratio] 80 mg/g High <30 [facility] Comment on above: Order Comment: Gen perez Type: BLOOD SPECIMEN [facility] Address: [address] [place] [address] Result Comment: Adul t Male and Female Nephrotic Criteria: <30 mg/g is considered normal to mildly increased 30-300 mg/g is considered moderately increased >300 mg/g is considered severely increased KDIGO. (2013). KDIGO 2012 Clinical Practice Guideline for the Evaluation and Management of Chronic Kidney Disease. Official Journal of the International Society of Nephrology, 3(1), 1-150. Performed By: #### 1 989-3 #### [facility] CLIA [id number] [address] [place] [address] [place] Creatinine (U) [Mass/Vol] 49.7 mg/dL Normal 20.0-300.0 [facility] Comment on above: Order Comment: Speci men Type: BLOOD SPECIMEN [facility] Address: [address] [place] [address] Performed By: #### 1 989-3 #### [facility] CLIA [id number] [address] [place] [address] [place] Comprehensive metabolic 2000 panelon 02-20-2024 Albumin [Mass/Vol] 4.2 g/dL Normal 3.9-4.9 [facility] Comment on above: Order Comment: Speci men Type: BLOOD SPECIMEN [facility] Address: [address] [place] [address] Performed By: #### 3 3762-6, 82470-0 #### [facility] CLIA [id number] [address] [place] [address] [place] ALP [Catalytic activity/Vol] 119 U/L Normal 34-123 [facility] Comment on above: Order Comment: Speci men Type: BLOOD SPECIMEN [facility] Address: [address] [place] [address] Performed By: #### 3 3762-6, 13604-1 #### [facility] CLIA [id number] [address] [place], [place] [address] [place] ALT [Catalytic activity/Vol] 33 U/L Normal 7-38 [facility] Comment on above: Order Comment: Speci men Type: BLOOD SPECIMEN [facility] Address: [address] [place] [address] Performed By: #### 3 3762-6, 44696-7 #### [facility] CLIA [id number] [address] [place], [place] [address] [place] Anion gap [Moles/Vol] 13 mmol/L Normal 8-15 [facility] Comment on above: Order Comment: Speci men Type: BLOOD SPECIMEN [facility] Address: [address] [place] [address] Performed By: #### 3 3762-6, 25040-8 #### [facility] CLIA [id number] [address] [place] [address] [place] AST [Catalytic activity/Vol] 25 U/L Normal 13-35 [facility] Comment on above: Order Comment: Speci men Type: BLOOD SPECIMEN [facility] Address: [address] [place] [address] Performed By: #### 3 3762-6, 47670-7 #### [facility] CLIA [id number] [address] [place] [address] [place] Bilirubin [Mass/Vol] 0.4 mg/dL Normal 0.2-1.3 [facility] Comment on above: Order Comment: Speci men Type: BLOOD SPECIMEN [facility] Address: [address] [place] [address] Performed By: #### 3 3762-6, 16301-3 #### [facility] CLIA [id number] [address] [place] [address] [place] Calcium [Mass/Vol] 10.4 mg/dL High 8.5-10.2 [facility] Comment on above: Order Comment: Speci men Type: BLOOD SPECIMEN [facility] Address: [address] [place] [address] Performed By: #### 3 3762-6, 73284-8 #### [facility] CLIA [id number] [address] [place] [address] [place] Chloride [Moles/Vol] 100 mmol/L Normal 98-107 [facility] Comment on above: Order Comment: Speci men Type: BLOOD SPECIMEN [facility] Address: [address] [place] [address] Performed By: #### 3 3762-6, 65846-6 #### [facility] CLIA [id number] [address] [place] [address] [place] CO2 [Moles/Vol] 26 mmol/L Normal 22-30 [facility] Comment on above: Order Comment: Speci men Type: BLOOD SPECIMEN [facility] Address: [address] [place] [address] Performed By: #### 3 3762-6, 56733-1 #### [facility] CLIA [id number] [address] [place] [address] [place] Creatinine [Mass/Vol] 0.87 mg/dL Normal 0.58-0.96 [facility] Comment on above: Order Comment: Speci men Type: BLOOD SPECIMEN [facility] Address: [address] [place] [address] Performed By: #### 3 3762-6, 14839-9 #### [facility] CLIA [id number] [address] [place] [address] [place] Creatinine and Glomerular filtration rate.predicted panel (S/P/Bld) 67 mL/min/1.73m??? Normal >=60 [facility] Comment on above: Order Comment: Speci men Type: BLOOD SPECIMEN [facility] Address: [address] [place] [address] Result Comment: Prerna mated Glomerular Filtration Rate (eGFR) is calculated using the 2020 CKD-EPI creatinine equation. This equation utilizes serum creatinine, sex, and age as parameters. The creatinine assay has traceable calibration to isotope dilution-mass spectrometry. Refer to KDIGO guidelines for clinical interpretation. In patients with unstable renal function, e.g. those with acute kidney injury, the eGFR may not accurately reflect actual GFR. Performed By: #### 3 5832-6, 80870-7 #### [facility] CLIA [id number] [address] [place] [address] [place] Glucose [Mass/Vol] 153 mg/dL High 74-99 [facility] Comment on above: Order Comment: Speci men Type: BLOOD SPECIMEN [facility] Address: [address] [place] [address] Result Comment: The [place] Diabetes Association (ADA) provides guidance for cutoff values for fasting glucose and random glucose. The ADA defines fasting as no caloric intake for at least 8 hours. Fasting plasma glucose results between 100 to 125 mg/dL indicate increased risk for diabetes (prediabetes). Fasting plasma glucose results greater than or equal to 126 mg/dL meet the criteria for diagnosis of diabetes. In the absence of unequivocal hyperglycemia, results should be confirmed by repeat testing. In a patient with classic symptoms of hyperglycemia or hyperglycemic crisis, random plasma glucose results greater than or equal to 200 mg/dL meet the criteria for diagnosis of diabetes. Reference: Standards of Medical Care in Diabetes 2016, [place] Diabetes Association. Diabetes Care. 2016.39(Suppl 1). Performed By: #### 3 3762-6, 80206-9 #### [facility] CLIA [id number] [address] [place] [address] [place] Potassium [Moles/Vol] 3.5 mmol/L Low 3.7-5.1 [facility] Comment on above: Order Comment: Elai men Type: BLOOD SPECIMEN [facility] Address: [address] [place] [address] Performed By: #### 3 3762-6, 14028-6 #### [facility] CLIA [id number] [address] [place] [address] [place] Protein [Mass/Vol] 6.6 g/dL Normal 6.3-8.0 [facility] Comment on above: Order Comment: Elai men Type: BLOOD SPECIMEN [facility] Address: [address] [place] [address] Performed By: #### 3 3762-6, 20084-3 #### [facility] CLIA [id number] [address] [place] [address] [place] Sodium [Moles/Vol] 139 mmol/L Normal 136-144 [facility] Comment on above: Order Comment: Speci men Type: BLOOD SPECIMEN [facility] Address: [address] [place] [address] Performed By: #### 3 3762-6, 82223-7 #### [facility] CLIA [id number] [address] [place] [address] [place] Urea nitrogen [Mass/Vol] 20 mg/dL Normal 7-21 [facility] Comment on above: Order Comment: Speci men Type: BLOOD SPECIMEN [facility] Address: [address] [place] [address] Performed By: #### 3 3762-6, 73472-6 #### [facility] CLIA [id number] [address] [place] [address] [place] HbA1c (Bld)on 02-20-2024 Average glucose Estimated from glycated hemoglobin (Bld) [Mass/Vol] 160 mg/dL Normal [facility] Comment on above: Order Comment: Speci men Type: BLOOD SPECIMENOrdering Facility: [facility] Address: [address] [place] [address] Result Comment: eAG: (Estimated average glucose) is a calculated value from HgbA1c and is health and safety representative of the average blood glucose level in the last 2-3 month period. Performed By: #### 5 5454-3 ####[facility] LABCLIA [id number] [place] [address] [place] HbA1c (Bld) [Mass fraction] 7.2 % High 4.3-5.6 [facility] Comment on above: Order Comment: Speci men Type: BLOOD SPECIMENOrdering Facility: [facility] Address: [address] [place] [address] Result Comment: [place] Diabetes Association guidelines indicate that patients with HgbA1c in the range 5.7-6.4% are at increased risk for development of diabetes, and intervention by lifestyle modification may be beneficial. HgbA1c greater or equal to 6.5% is considered diagnostic of diabetes. Performed By: #### 5 5454-3 ####[facility] LABCLIA [id number] [facility] [place] [place] [address] [place] Lipid 1996 panelon 4 Cholesterol [Mass/Vol] 191 mg/dL Normal <200 [facility] Comment on above: Order Comment: Gen perez Type: BLOOD SPECIMEN [facility] Address: [address] [place] [address] Result Comment: <200 mg/dL, Desirable 200-239 mg/dL, Borderline high >239 mg/dL, High Performed By: #### 3 3762-6, 13108-1 #### [facility] CLIA [id number] [address] [place] [address] [place] [facility] Cholesterol in HDL [Mass/Vol] 40 mg/dL Normal >39 [facility] Comment on above: Order Comment: Gen perez Type: BLOOD SPECIMEN [facility] Address: [address] [place] [address] Result Comment: 40-5 9 mg/dL, Acceptable >59 mg/dL, High: Negative risk factor for coronary heart disease <40 mg/dL, Low: Positive risk factor for coronary heart disease Performed By: #### 3 3762-6, 53266-2 #### [facility] CLIA [id number] [address] [place] [address] [place] Cholesterol in LDL [Mass/Vol] 93 mg/dL Normal <100 [facility] Comment on above: Order Comment: Gen perez Type: BLOOD SPECIMEN [facility] Address: [address] [place] [address] Result Comment: <100 mg/dL, Optimal 100-129 mg/dL, Near optimal/above optimal 130-159 mg/dL, Borderline high 160-189 mg/dL, High >189 mg/dL, Very high Secondary prevention optimal LDL Cholesterol levels are recommended to be < 70 mg/dL Performed By: #### 3 3762-6, 40684-2 #### [facility] CLIA [id number] [address] [place] [address] [place] Cholesterol in LDL/Cholesterol in HDL [Mass ratio] 2.33 {ratio} Normal <2.54 [facility] [facility] Comment on above: Order Comment: Gen men Type: BLOOD SPECIMEN [facility]ing Facility: [facility] Address: [address] [place] [address] Result Comment: Maira dacosta: 1. National Cholesterol Education Program ATP III Guideline At-A-Glance Quick Desk Reference: National Heart, Lung, and Blood [place]. National Institutes of Health. 2001: NIH Publication No. 01-3305. 2. An International Atherosclerosis Society position paper: global recommendations for the management of dyslipidemia: executive summary, Atherosclerosis. 2014: 232(2):410-413. Performed By: #### 3 3762-6, 63902-2 #### [facility] CLIA [id number] [address] [place] [address] [place] Cholesterol in VLDL [Mass/Vol] 58 mg/dL High <30 [facility] Comment on above: Order Comment: Gen perez Type: BLOOD SPECIMEN Ordering Facility: [facility] Address: [address] [place] [address] Performed By: #### 3 3762-6, 25014-0 #### [facility] CLIA [id number] [facility] [place] [id number] [place] Cholesterol non HDL [Mass/Vol] 151 mg/dL High <130 [facility] Comment on above: Order Comment: Gen perez Type: BLOOD SPECIMEN Ordering Facility: [facility] Address: [address] [place] [address] Result Comment: <130 mg/dL, Optimal 130-159 mg/dL, Near optimal/above optimal 160-189 mg/dL, Borderline high 190-219 mg/dL, High >219 mg/dL, Very high Secondary prevention optimal non HDL Cholesterol levels are recommended to be <100 mg/dL Performed By: #### 3 3762-6, 50267-7 #### [facility] CLIA [id number] [address] [place] [address] [place] Cholesterol.total/Divya sterol in HDL [Mass ratio] 4.78 {ratio} Normal <5.10 [facility] Comment on above: Order Comment: Speci men Type: BLOOD SPECIMEN Ordering Facility: [facility] Address: [address] [place] [address] Performed By: #### 3 3762-6, 66184-7 #### [facility] CLIA [id number] [address] [place] [address] [place] FASTING TIME 12 hrs Normal [facility] Comment on above: Order Comment: Speci men Type: BLOOD SPECIMEN Ordering Facility: [facility] Address: [address] [place] [address] Performed By: #### 3 3762-6, 26008-8 #### [facility] CLIA [id number] [address] [place] [address] [place] Triglyceride [Mass/Vol] 291 mg/dL High <150 [facility] Comment on above: Order Comment: Speci men Type: BLOOD SPECIMEN Ordering Facility: [facility] Address: [address] [place] [address] Result Comment: <150 mg/dL, Normal 150-199 mg/dL, Borderline high 200-499 mg/dL, High >499 mg/dL, Very high Performed By: #### 3 3762-6, 43843-7 #### [facility] CLIA [id number] [address] [place] [address] [place] T3Free SerPl-mCncon 12-16-20 24 Free T3 [Mass/Vol] 2.8 pg/mL Normal 2.3-4.1 [facility] Comment on above: Order Comment: Speci men Type: BLOOD SPECIMEN Ordering Facility: [facility] Address: [address] [place] [address] Performed By: #### 3 3762-6, 95832-3 #### [facility] CLIA [id number] [address] [place] [address] [place] T4 Free SerPl-mCncon 024 Free T4 [Mass/Vol] 1.3 ng/dL Normal 0.9-1.7 [facility] Comment on above: Order Comment: Speci men Type: BLOOD SPECIMEN Ordering Facility: [facility] Address: [address] [place] [address] Performed By: #### 3 3762-6, 74825-8 #### [facility] CLIA [id number] [address] [place] [address] [place] TSH SerPl-aCncon 02-20-2024 TSH Qn 1.020 m[IU]/L Normal 0.270-4.200 [facility] Comment on above: Order Comment: Elai men Type: BLOOD SPECIMEN Ordering Facility: [facility] Address: [address] [place] [address] Performed By: #### 3 3762-6, 77767-8 #### [facility] CLIA [id number] [address] [place] [address] [place] DXA Skeletal system.axial Vi ews for bone densityOrdered By: Ccf Provider on 12-06-2023 LOWEST T-SCORE -2.9 [facility] DXA Skeletal system.axial Vi ews for bone densityon 12-06-2023 IMPRESSION: THE LOWEST T-SCORE IS -2.9 IN THE RIGHT HIP 1) DIAGNOSIS (based on BMD alone): OSTEOPOROSIS Caution: Medical conditions other than osteoporosis may cause low bone density, such as osteomalacia or renal osteodystrophy. Clinical correlation is necessary. 2) FRACTURE RISK (based on FRAX): 10-year absolute fracture risk: - major osteoporotic fracture = 19 % - hip fracture = 6.9 % - A diagnosis of Osteoporosis, a 10 year probability of hip fracture greater than or equal to 3% or a 10 year probability of any major osteoporosis-related fracture greater than or equal to 20% should be considered for treatment. - DXA scanner generated FRAX calculations may slightly differ from online FRAX calculations due to differences in software versions. - All recommendations and calculations are to be considered as guidelines and should not replace sound clinical judgement - Caution: Fracture risk may be increased independent of BMD in patients with corticosteroid use, age greater than 65 years, or a history of prior fragility fracture. RECOMMENDATIONS: Follow-up in 2 years or as clinically indicated. Patients that are taking corticosteroids, are transplant recipients or have hyperparathyroidism should have annual follow-up. Follow-up scans should always be done on the same machine for accurate comparison. FOR MORE INFORMATION ABOUT DIAGNOSIS AND TREATMENT: [facility] Center for Osteoporosis and Metabolic Bone Disease:? www.ccf.org/arthritis/ osteo National Osteoporosis Foundation:? www.nof.org International Society of Clinical Densitometry www.iscd.org Retail Department Supervisor: ANIA Transcribe Date/Time: Dec 06 2023 2:59P Dictated by : IGNACIO ANGUIANO MD This examination was interpreted and the report reviewed and electronically signed by: IGNACIO ANGUIANO MD on Dec 06 2023 3:08PM [facility] DIVISION OF RADIOLOGY * * *Final Report* * * DATE OF EXAM: Dec 05 2023 2:44PM [facility] 0804 - BD DXA - AXIAL SKELETON / PROCEDURE REASON: multiple diagnoses * * * * Physician Interpretation * * * * EXAMINATION: DXA BONE DENSITOMETRY BD DXA - AXIAL SKELETON PATIENT DEMOGRAPHICS: Age: 83 years, Gender: Female SCANNER INFORMATION: DXA Model: TrackerSphere - Videostrip C [id number] Date Scanned: 12/05/2023 2:44 PM CLINICAL HISTORY: DIAGNOSTIC Asymptomatic postmenopausal status Osteopenia of spine Vitamin D deficiency S/P subtotal parathyroidectomy. RISK FACTORS FOR OSTEOPOROSIS AND ASSOCIATED FRACTURES REPORTED BY THIS PATIENT: Please refer to Bone Health Questionnaire in the EMR CURRENT THERAPY: Please refer to Bone Health Questionnaire in the EMR TECHNICAL LIMITATIONS: None RESULTS: Lumbar spine (L1, L2, L3, L4): 0.968 g/cm2, T-score -0.7, Z-score 2.0 Lumbar spine: 2015: 0.867 g/cm2 There has been an 11.6% interval increase in bone mineral density. Right Femoral Neck: 0.522 g/cm2, T-score -2.9, Z-score -0.6 Right Femoral Neck: 2015: 0.746 g/cm2 There has been a 30.1% interval decrease in bone mineral density. Right Total Hip: 0.853 g/cm2, T-score -0.7, Z-score 1.4 Right Total Hip: 2015: 0.983 g/cm2 There has been a 13.3% interval decrease in bone mineral density. Left Femoral Neck: 0.638 g/cm2, T-score -1.9, Z-score 0.5 Left Femoral Neck: 2015: 0.742 g/cm2 There has been a 14.0% interval decrease in bone mineral density. Left Total Hip: 0.859 g/cm2, T-score -0.7, Z-score 1.4 Left Total Hip: 2015: 0.970 g/cm2 There has been an 11.5% interval decrease in bone mineral density. CHANGE IS STATISTICALLY SIGNIFICANT IN THE SPINE OR HIP IF GREATER THAN OR EQUAL TO 0.04 g/cm2 VERTEBRAL FRACTURE ASSESSMENT Not performed. DIVISION OF RADIOLOGY Provider, [facility] - 12/06/2023 * * *Final Report* * * DATE OF EXAM: Dec 05 2023 2:44PM [facility] 0804 - BD DXA - AXIAL SKELETON / PROCEDURE REASON: multiple diagnoses * * * * Physician Interpretation * * * * EXAMINATION: DXA BONE DENSITOMETRY BD DXA - AXIAL SKELETON PATIENT DEMOGRAPHICS: Age: 83 years, Gender: Female SCANNER INFORMATION: DXA Model: TrackerSphere - crealytics Discovery C [id number] Date Scanned: 12/05/2023 2:44 PM CLINICAL HISTORY: DIAGNOSTIC Asymptomatic postmenopausal status Osteopenia of spine Vitamin D deficiency S/P subtotal parathyroidectomy. RISK FACTORS FOR OSTEOPOROSIS AND ASSOCIATED FRACTURES REPORTED BY THIS PATIENT: Please refer to Bone Health Questionnaire in the EMR CURRENT THERAPY: Please refer to Bone Health Questionnaire in the EMR TECHNICAL LIMITATIONS: None RESULTS: Lumbar spine (L1, L2, L3, L4): 0.968 g/cm2, T-score -0.7, Z-score 2.0 Lumbar spine: 2015: 0.867 g/cm2 There has been an 11.6% interval increase in bone mineral density. Right Femoral Neck: 0.522 g/cm2, T-score -2.9, Z-score -0.6 Right Femoral Neck: 2015: 0.746 g/cm2 There has been a 30.1% interval decrease in bone mineral density. Right Total Hip: 0.853 g/cm2, T-score -0.7, Z-score 1.4 Right Total Hip: 2015: 0.983 g/cm2 There has been a 13.3% interval decrease in bone mineral density. Left Femoral Neck: 0.638 g/cm2, T-score -1.9, Z-score 0.5 Left Femoral Neck: 2015: 0.742 g/cm2 There has been a 14.0% interval decrease in bone mineral density. Left Total Hip: 0.859 g/cm2, T-score -0.7, Z-score 1.4 Left Total Hip: 2015: 0.970 g/cm2 There has been an 11.5% interval decrease in bone mineral density. CHANGE IS STATISTICALLY SIGNIFICANT IN THE SPINE OR HIP IF GREATER THAN OR EQUAL TO 0.04 g/cm2 VERTEBRAL FRACTURE ASSESSMENT Not performed. IMPRESSION IMPRESSION: THE LOWEST T-SCORE IS -2.9 IN THE RIGHT HIP 1) DIAGNOSIS (based on BMD alone): OSTEOPOROSIS Caution: Medical conditions other than osteoporosis may cause low bone density, such as osteomalacia or renal osteodystrophy. Clinical correlation is necessary. 2) FRACTURE RISK (based on FRAX): 10-year absolute fracture risk: - major osteoporotic fracture = 19 % - hip fracture = 6.9 % - A diagnosis of Osteoporosis, a 10 year probability of hip fracture greater than or equal to 3% or a 10 year probability of any major osteoporosis-related fracture greater than or equal to 20% should be considered for treatment. - DXA scanner generated FRAX calculations may slightly differ from online FRAX calculations due to differences in software versions. - All recommendations and calculations are to be considered as guidelines and should not replace sound clinical judgement - Caution: Fracture risk may be increased independent of BMD in patients with corticosteroid use, age greater than 65 years, or a history of prior fragility fracture. RECOMMENDATIONS: Follow-up in 2 years or as clinically indicated. Patients that are taking corticosteroids, are transplant recipients or have hyperparathyroidism should have annual follow-up. Follow-up scans should always be done on the same machine for accurate comparison. FOR MORE INFORMATION ABOUT DIAGNOSIS AND TREATMENT: [facility] Center for Osteoporosis and Metabolic Bone Disease:? www.ccf.org/arthritis/ osteo National Osteoporosis Foundation:? www.nof.org International Society of Clinical Densitometry www.iscd.org Retail Department Supervisor: ANIA Transcribe Date/Time: Dec 06 2023 2:59P Dictated by : IGNACIO ANGUIANO MD This examination was interpreted and the report reviewed and electronically signed by: IGNACIO ANGUIANO MD on Dec 06 2023 3:08PM EST [facility] BD DXA - AXIAL SKELETONon BD DXA - AXIAL SKELETON * * *Final Repor t* * * DATE OF EXAM: Dec 05 2023 2:44PM [facility] 0804 - BD DXA - AXIAL SKELETON / PROCEDURE REASON: multiple diagnoses * * * * Physician Interpretation * * * * EXAMINATION: DXA BONE DENSITOMETRY BD DXA - AXIAL SKELETON PATIENT DEMOGRAPHICS: Age: 83 years, Gender: Female SCANNER INFORMATION: DXA Model: TrackerSphere - crealytics Discovery C [id number] Date Scanned: 12/05/2023 2:44 PM CLINICAL HISTORY: DIAGNOSTIC Asymptomatic postmenopausal status Osteopenia of spine Vitamin D deficiency S/P subtotal parathyroidectomy. RISK FACTORS FOR OSTEOPOROSIS AND ASSOCIATED FRACTURES REPORTED BY THIS PATIENT: Please refer to Bone Health Questionnaire in the EMR CURRENT THERAPY: Please refer to Bone Health Questionnaire in the EMR TECHNICAL LIMITATIONS: None RESULTS: Lumbar spine (L1, L2, L3, L4): 0.968 g/cm2, T-score -0.7, Z-score 2.0 Lumbar spine: 2014: 0.867 g/cm2 There has been an 11.6% interval increase in bone mineral density. Right Femoral Neck: 0.522 g/cm2, T-score -2.9, Z-score -0.6 Right Femoral Neck: 2015: 0.746 g/cm2 There has been a 30.1% interval decrease in bone mineral density. Right Total Hip: 0.853 g/cm2, T-score -0.7, Z-score 1.4 Right Total Hip: 2015: 0.983 g/cm2 There has been a 13.3% interval decrease in bone mineral density. Left Femoral Neck: 0.638 g/cm2, T-score -1.9, Z-score 0.5 Left Femoral Neck: 2015: 0.742 g/cm2 There has been a 14.0% interval decrease in bone mineral density. Left Total Hip: 0.859 g/cm2, T-score -0.7, Z-score 1.4 Left Total Hip: 2015: 0.970 g/cm2 There has been an 11.5% interval decrease in bone mineral density. CHANGE IS STATISTICALLY SIGNIFICANT IN THE SPINE OR HIP IF GREATER THAN OR EQUAL TO 0.04 g/cm2 VERTEBRAL FRACTURE ASSESSMENT Not performed. IMPRESSION: THE LOWEST T-SCORE IS -2.9 IN THE RIGHT HIP 1) DIAGNOSIS (based on BMD alone): OSTEOPOROSIS Caution: Medical conditions other than osteoporosis may cause low bone density, such as osteomalacia or renal osteodystrophy. Clinical correlation is necessary. 2) FRACTURE RISK (based on FRAX): 10-year absolute fracture risk: - major osteoporotic fracture = 19 % - hip fracture = 6.9 % - A diagnosis of Osteoporosis, a 10 year probability of hip fracture greater than or equal to 3% or a 10 year probability of any major osteoporosis-related fracture greater than or equal to 20% should be considered for treatment. - DXA scanner generated FRAX calculations may slightly differ from online FRAX calculations due to differences in software versions. - All recommendations and calculations are to be considered as guidelines and should not replace sound clinical judgement - Caution: Fracture risk may be increased independent of BMD in patients with corticosteroid use, age greater than 65 years, or a history of prior fragility fracture. RECOMMENDATIONS: Follow-up in 2 years or as clinically indicated. Patients that are taking corticosteroids, are transplant recipients or have hyperparathyroidism should have annual follow-up. Follow-up scans should always be done on the same machine for accurate comparison. FOR MORE INFORMATION ABOUT DIAGNOSIS AND TREATMENT: [facility] for Osteoporosis and Metabolic Bone Disease:? www.ccf.org/arthritis/ osteo National Osteoporosis Foundation:? www.nof.org International Society of Clinical Densitometry www.iscd.org Retail Department Supervisor: ANIA Transcribe Date/Time: Dec 06 2023 2:59P Dictated by : IGNACIO ANGUIANO MD This examination was interpreted and the report reviewed and electronically signed by: IGNACIO ANGUIANO MD on Dec 06 2023 3:08PM EST [id number] -2.9 Normal [facility] DXA Skeletal system.axial Vi ews for bone densityon 12-05-2023 Radiology Study observation (narrative) Nic aguilera [facility] CNOVon 10-18-2023 CNOV Office Visit (INTMWS ) JARRED FAIR ([id number]) 1940 F NFR Date Time Provider Department 10/18/23 8:20 AM PAM MCGILL INTMWS During your visit today, we recorded the following information about you: Temperature Pulse Respiration Blood pressure 97.5 degrees 78/minute 16/minute 136/78 Weight 99.1 kg Pam Mcgill MD 10/21/2023 1:00 PM Signed This note was created using iGoriter. Subjective Jarred Fair is a 83 year old female. Patient presents with: F/U 4 month: Labs prior SUBJECTIVE: Jarred Fair is a 83 year old year old lady here today for 4 month follow up appointment for review of medical conditions. Patient is an 83-year-old female with a history of diabetes, hypothyroidism, and parathyroidectomy, presenting for follow-up. She reports feeling drained and tired but notes that this is not worse than usual. She has gained approximately 5 lbs since her last visit, which she attributes to recent travel and family visits. She has been trying to make healthier food choices and has reduced her intake of soda, switching to herbal teas instead. She has not been motivated to exercise but is considering starting a new exercise routine. She is currently taking levothyroxine 137 mcg daily, and is wondering if a dose adjustment might help with her energy levels. Using CPAP routinely and benefits from use. See assessment and plan for other issues addressed. PAST MEDICAL HISTORY No date: Allergic rhinitis, cause unspecified Comment: Allergic rhinitis No date: Benign neoplasm of colon No date: Disorder of bone and cartilage, unspecified 06/28/2006: Dysmetabolic syndrome X Comment: Started on Januvia by Dr. Toure for DM prevention since did not tolerate metformin No date: Nonrheumatic aortic insufficiency with aortic stenosis Comment: Dr. Olguin (patient support assistant). S/P [facility] 12/2016 No date: Obesity, unspecified No date: Other diseases of pharynx, not elsewhere classified(478.29) No date: Personal history of colonic polyps No date: Pure hyperglyceridemia No date: Snoring No date: Unspecified asthma(493.90) No date: Unspecified cardiovascular disease Comment: AI and some CAD on cath (Clau follows) No date: Unspecified essential hypertension No date: Unspecified hypothyroidism Current Outpatient Medications Medication Sig Magnesium 250 mg tab Take 250 mg by mouth once daily. TURMERIC ORAL Take 1 Dose by mouth two times a day. 1 gummie twice daily ZINC ORAL Take 1 Dose by mouth two times a day. 1 gummi two times daily rosuvastatin (CRESTOR) 5 mg tablet Take 1 tablet by mouth one time a week. (Patient taking differently: Take 5 mg by mouth two times a week.) ezetimibe (ZETIA) 10 mg tablet Take 10 mg by mouth once daily. 5 days a week montelukast (SINGULAIR) 10 mg tablet Take 1 tablet by mouth once daily. As directed fluticasone (FLONASE) 50 mcg/actuation nasal spray Use 2 Sprays in each nostril once daily as needed for cold/allergy symptoms. Rinse mouth after use. CPAP Continue CPAP at 9cm H2O with humidification. Refills for Mask (per patient preference) optional chin strap (if indicated) , filters, tubing, humidifier and lifetime supplies. G47.33 albuterol HFA (VENTOLIN HFA) 90 mcg/actuation inhaler Inhale 2 Puffs as instructed every 4 hours as needed. clobetasol (TEMOVATE) 0.05 % ointment Clobetasol Propionate 0.05 % sham amLODIPine (NORVASC) 10 mg tablet Take 1 tablet by mouth once daily. (Dr. Olguin) glucosamine HCl/chondroitin mccarthy (GLUCOSAMINE-CHONDROIT IN ORAL) Take by mouth once daily. ubidecarenone (CO Q-10 ORAL) Take by mouth once daily. lisinopril (ZESTRIL, PRINIVIL) 40 mg tablet Take 1 tablet by mouth once daily. carvedilol (COREG) 6.25 mg tablet Take 1 tablet by mouth twice daily. (Patient taking differently: Take 3.125 mg by mouth two times a day.) Multivitamin capsule Take 1 capsule by mouth once daily. furosemide (LASIX) 40 mg tablet Take 40 mg by mouth once daily. vitamin e 1,000 unit capsule Take 1,000 Units by mouth once daily. BIOTIN ORAL Take by mouth. VITAMIN A PALMITATE ORAL Take by mouth. Cetirizine 10 mg cap Take by mouth. Cholecalciferol, Vitamin D3, 1,000 unit cap Take 1 capsule by mouth once daily. aspirin, enteric coated (ASPIRIN, ENTERIC COATED) 81 mg EC tablet Take 1 tablet by mouth once daily. COMPOUNDED PRESCRIPTION CPAP head gear Diagnosis :OPHELIA 327.23 OMEGA-3 FATTY ACIDS-FISH OIL 300 MG-1,000 MG CAP Take one(1) tablet daily. diphenhydramine hcl(BENADRYL 25 MG CAP) Take one(1) tablet daily at bedtime as necessary (uses 5-6 x's a week) levothyroxine (SYNTHROID) 137 mcg tablet Take 1 tablet by mouth daily before breakfast. Plus add half pill on Sundays (total 7.5 pills taken per week) APPLE CIDER VINEGAR ORAL Take by mouth. Zinc 50 mg tab Take 1 tablet by mouth once daily. No current facility-administered me (more content not included)... Normal [facility] 25(OH)D3 [facility] 2023 25-hydroxyvitamin D3 [Mass/Vol] 62.6 ng/mL Normal 31.0-80.0 [facility] Comment on above: Order Comment: Speci men Type: BLOOD SPECIMEN [facility] Address: [address] [place] [address] Result Comment: Clas sification of 25 [place] Vitamin D status: Deficiency/Insufficiency: < or = 30 ng/ml. Sufficiency/Optimal Levels: 31-80 ng/mL Toxicity: > 100 ng/mL. Test performed by chemiluminescent immunoassay. Performed By: #### 1 989-3 #### [facility] CLIA [id number] [address] [place], [place] [address] [address] [place] Comprehensive metabolic 2000 panelon 10-10-2023 Albumin [Mass/Vol] 4.2 g/dL Normal 3.9-4.9 [facility] Comment on above: Order Comment: Speci men Type: BLOOD SPECIMENOrdering Facility: [facility] Address: [address] [place] [address] Performed By: #### 3 051-0, 3024-7, 36183-8, 3016-3 ####[facility] LABCLIA [id number] [place] [address] [place] ALP [Catalytic activity/Vol] 102 U/L Normal 34-123 [facility] Comment on above: Order Comment: Speci men Type: BLOOD SPECIMENOrdering Facility: [facility] Address: [address] [place] [address] Performed By: #### 3 051-0, 3024-7, 56249-4, 3016-3 ####[facility] LABCLIA [id number] [place] [address] [place] ALT [Catalytic activity/Vol] 34 U/L Normal 7-38 [facility] Comment on above: Order Comment: Speci men Type: BLOOD SPECIMENOrdering Facility: [facility] Address: [address] [place] [address] Performed By: #### 3 051-0, 3024-7, 49351-6, 3016-3 ####[facility] LABCLIA [id number] [place] [address] [place] Anion gap [Moles/Vol] 11 mmol/L Normal 8-15 [facility] Comment on above: Order Comment: Speci men Type: BLOOD SPECIMENOrdering Facility: [facility] Address: [address] [place] [address] Performed By: #### 3 051-0, 3024-7, 91085-9, 3016-3 ####[facility] LABCLIA [id number] [place] [address] [place] AST [Catalytic activity/Vol] 29 U/L Normal 13-35 [facility] Comment on above: Order Comment: Speci men Type: BLOOD SPECIMENOrdering Facility: [facility] Address: [address] [place] [address] Performed By: #### 3 051-0, 3024-7, 91884-2, 3016-3 ####[facility] LABCLIA [id number] [place] [address] [place] Bilirubin [Mass/Vol] 0.5 mg/dL Normal 0.2-1.3 [facility] Comment on above: Order Comment: Speci men Type: BLOOD SPECIMENOrdering Facility: [facility] Address: [address] [place] [address] Performed By: #### 3 051-0, 3024-7, 32689-7, 3016-3 ####[facility] LABCLIA [id number] [place] [address] [place] Calcium [Mass/Vol] 10.3 mg/dL High 8.5-10.2 [facility] Comment on above: Order Comment: Speci men Type: BLOOD SPECIMENOrdering Facility: [facility] [facility] Address: [address] [place] [address] Performed By: #### 3 051-0, 3024-7, 95986-7, 3016-3 ####[facility] LABCLIA [id number] [place] [address] [place] Chloride [Moles/Vol] 100 mmol/L Normal 98-107 [facility] Comment on above: Order Comment: Speci men Type: BLOOD SPECIMENOrdering Facility: [facility] Address: [address] [place] [address] Performed By: #### 3 051-0, 3024-7, 16616-0, 3016-3 ####[facility] LABCLIA [id number] [address] [id number] [address] [place] CO2 [Moles/Vol] 27 mmol/L Normal 22-30 [facility] Comment on above: Order Comment: Specsara men Type: BLOOD SPECIMENOrdering Facility: [facility] Address: [address] [place] [address] Performed By: #### 3 051-0, 3024-7, 15901-8, 3016-3 ####[facility] LABCLIA [id number] [place] [address] [place] Creatinine [Mass/Vol] 0.94 mg/dL Normal 0.58-0.96 [facility] Comment on above: Order Comment: Gen men Type: BLOOD SPECIMENOrdering Facility: [facility] Address: [address] [place] [address] Performed By: #### 3 051-0, 3024-7, 58550-7, 6-3 ####[facility] LABIA [id number] [place] [address] [place] Creatinine and Glomerular filtration rate.predicted panel (S/P/Bld) 61 mL/min/1.73m??? Normal >=60 [facility] Comment on above: Order Comment: Gen perez Type: BLOOD SPECIMENOrdering Facility: [facility] Address: [address] [place] [address] Result Comment: Prerna mated Glomerular Filtration Rate (eGFR) is calculated using the 2020 CKD-EPI creatinine equation. This equation utilizes serum creatinine, sex, and age as parameters. The creatinine assay has traceable calibration to isotope dilution-mass spectrometry. Refer to KDIGO guidelines for clinical interpretation. In patients with unstable renal function, e.g. those with acute kidney injury, the eGFR may not accurately reflect actual GFR. Performed By: #### 3 051-0, 3024-7, 35541-8, 3016-3 ####[facility] LABCLIA [id number] [place] [id number] [place] Glucose [Mass/Vol] 145 mg/dL High 74-99 [facility] Comment on above: Order Comment: Speci men Type: BLOOD SPECIMENOrdering Facility: [facility] Address: [address] [place] [address] Result Comment: The [place] Diabetes Association (ADA) provides guidance for cutoff values for fasting glucose and random glucose. The ADA defines fasting as no caloric intake for at least 8 hours. Fasting plasma glucose results between 100 to 125 mg/dL indicate increased risk for diabetes (prediabetes). Fasting plasma glucose results greater than or equal to 126 mg/dL meet the criteria for diagnosis of diabetes. In the absence of unequivocal hyperglycemia, results should be confirmed by repeat testing. In a patient with classic symptoms of hyperglycemia or hyperglycemic crisis, random plasma glucose results greater than or equal to 200 mg/dL meet the criteria for diagnosis of diabetes. Reference: Standards of Medical Care in Diabetes 2016, [place] Diabetes Association. Diabetes Care. 2016.39(Suppl 1). Performed By: #### 3 051-0, 3024-7, 84504-4, 3016-3 ####[facility] LABCLIA [id number] [place] [address] [place] Potassium [Moles/Vol] 4.1 mmol/L Normal 3.7-5.1 [facility] Comment on above: Order Comment: Elai men Type: BLOOD SPECIMENOrdering Facility: [facility] Address: [address] [place] [address] Performed By: #### 3 051-0, 3024-7, 79823-6, 3016-3 ####[facility] LABCLIA [id number] [place] [address] [place] Protein [Mass/Vol] 6.7 g/dL Normal 6.3-8.0 [facility] Comment on above: Order Comment: Speci men Type: BLOOD SPECIMENOrdering Facility: [facility] Address: [address] [place] [address] Performed By: #### 3 051-0, 3024-7, 54175-9, 3016-3 ####[facility] LABCLIA [id number] [place] [address] [place] Sodium [Moles/Vol] 138 mmol/L Normal 136-144 [facility] Comment on above: Order Comment: Elai men Type: BLOOD SPECIMENOrdering Facility: [facility] Address: [address] [place] [address] Performed By: #### 3 051-0, 3024-7, 38895-8, 3016-3 ####[facility] LABCLIA [id number] [place] [address] [place] Urea nitrogen [Mass/Vol] 17 mg/dL Normal 7-21 [facility] Comment on above: Order Comment: Gen men Type: BLOOD SPECIMENOrdering Facility: [facility] Address: [address] [place] [address] Performed By: #### 3 051-0, 3024-7, 27234-6, 3016-3 ####[facility] LABCLIA [id number] [place] [address] [place] HbA1c (Bld)on 10-10-2023 Average glucose Estimated from glycated hemoglobin (Bld) [Mass/Vol] 143 mg/dL Normal [facility] Comment on above: Order Comment: Gen perez Type: BLOOD SPECIMEN [facility] Address: [address] [place] [address] Result Comment: eAG: (Estimated average glucose) is a calculated value from HgbA1c and is health and safety representative of the average blood glucose level in the last 2-3 month period. Performed By: #### 1 989-3 #### [facility] LAB CLIA [id number] [address] [place] [address] [place] HbA1c (Bld) [Mass fraction] 6.6 % High 4.3-5.6 [facility] Comment on above: Order Comment: Gen perez Type: BLOOD SPECIMEN [facility] Address: [address] [place] [address] Result Comment: [place] Diabetes Association guidelines indicate that patients with HgbA1c in the range 5.7-6.4% are at increased risk for development of diabetes, and intervention by lifestyle modification may be beneficial. HgbA1c greater or equal to 6.5% is considered diagnostic of diabetes. Performed By: #### 1 989-3 #### [facility] LAB CLIA [id number] [address] [place] [address] [place] PTH-Intact SerPl-mCncon 08-0 Parathyrin.intact [Mass/Vol] 86 pg/mL High 15-65 [facility] Comment on above: Order Comment: Speci men Type: BLOOD SPECIMEN [facility] Address: [address] [place] [address] Performed By: #### 3 3762-6, 72899-9 #### [facility] LAB CLIA [id number] [address] [place] [address] [place] T3Free SerPl-mCncon 10-10-19 24 Free T3 [Mass/Vol] 2.1 pg/mL Low 2.3-4.1 [facility] Comment on above: Order Comment: Speci men Type: BLOOD SPECIMENOrdering Facility: [facility] Address: [address] [place] [address] Performed By: #### 3 051-0, 3024-7, 35323-8, 3016-3 ####[facility] LABCLIA [id number] [place] [address] [place] T4 Free SerPl-mCncon 024 Free T4 [Mass/Vol] 1.2 ng/dL Normal 0.9-1.7 [facility] Comment on above: Order Comment: Speci men Type: BLOOD SPECIMENOrdering Facility: [facility] Address: [address] [place] [address] Performed By: #### 3 051-0, 3024-7, 59465-1, 3016-3 ####[facility] LABCLIA [id number] [place] [id number] [place] TSH SerPl-aCncon 10-10-2023 TSH Qn 3.030 m[IU]/L Normal 0.270-4.200 [facility] Comment on above: Order Comment: Speci men Type: BLOOD SPECIMENOrdering Facility: [facility] Address: [address] [place] [address] Performed By: #### 3 051-0, 3024-7, 21549-2, 3016-3 ####[facility] LABCLIA [id number] [place] [address] [place] DBT Breast - right diagnosti c for implanton 07-05-2023 IMPRESSION: PROBABLY BENIGN - SHORT TERM INTERVAL FOLLOW-UP RECOMMENDED The grouping of calcifications circled at the posterior breast on the prior exam are not clearly seen on the current study. A follow-up mammogram in 6 months is recommended to demonstrate stability. Darrel gregg/karen:07/05/2023 16:01:24 Internal Communications Manager(s): Sotero Doshi RT(R)(M), [facility] letter sent: # Mo FU Mammogram BI-RADS: 3 Probably benign finding - short term interval follow-up recommended Multiple national specialty organizations have released breast cancer screening guidelines for women at average risk for developing breast cancer - guidelines that are based on both evidence and opinion, yet differ on when to start and how often to screen for breast cancer. With representation from Breast Imaging, Internal Medicine, Women's Health, Family Medicine, and Medical/Surgical Oncology, the [facility] has carefully reviewed the data and reached the following consensus: 1) All women should engage in shared decision-making with their providers to decide when to start and how often to screen; 2) All women should have the opportunity to start screening mammography at age 40; 3) For women ages 45-55, we recommend annual screening mammograms; 4) For women ages 55 and over, we support both the transition from an annual to a biennial interval if this aligns more with patient's values and preferences, or continuation with annual screening; 5) All women should discuss with their providers when to stop screening mammograms. Retail Department Supervisor: Penrad Transcribe Date/Time: Jul 05 2023 3:12P Dictated by: DARREL BURNETT MD This examination was interpreted and the report reviewed and electronically signed by: DARREL BURNETT MD on Jul 05 2023 4:01PM [facility] DIVISION OF RADIOLOGY * * *Final Report* * * DATE OF EXAM: Jul 05 2023 3:12PM [facility] 0629 - TAD DIAG W MINA RT / PROCEDURE REASON: Abnormal mammogram of right breast * * * * Physician Interpretation * * * * RESULT: #[id number] - TAD DIAG W MINA RT UNILATERAL RIGHT DIGITAL DIAGNOSTIC MAMMOGRAM TOMOSYNTHESIS WITH CAD: 07/05/2023 HISTORY: Abnormal Mammogram Of Right Breast / Short term follow up right breast.-Abnormal Mammogram calcs/ no symptoms /priors available for comparison. RESULT: TECHNIQUE: The study was acquired using full field digital technology and interpreted from soft copy. Digital Breast Tomosynthesis (DBT) images were obtained and used to assist in the interpretation of this examination. Current study was also evaluated with a Computer Aided Detection (CAD). Comparison is made to exams dated: 01/04/2023 mammogram, 11/24/2022 mammogram, 10/28/2021 mammogram, 08/19/2021 mammogram, and 04/10/2020 mammogram - [facility]. The right breast is heterogeneously dense, which may obscure small masses. There are benign scattered calcifications in the right breast. The grouping of calcifications circled at the posterior breast along the nipple axis on the prior exam are not clearly seen on the current study. A follow up diagnostic mammogram in six months is recommended to reassess. No significant masses, calcifications, or other findings are seen in the breast. DIVISION OF RADIOLOGY Provider, [facility] - 07/05/2023 * * *Final Report* * * DATE OF EXAM: Jul 05 2023 3:12PM [facility] 0629 - TAD DIAG W MINA RT / PROCEDURE REASON: Abnormal mammogram of right breast * * * * Physician Interpretation * * * * RESULT: #[id number] - TAD DIAG W MINA RT UNILATERAL RIGHT DIGITAL DIAGNOSTIC MAMMOGRAM TOMOSYNTHESIS WITH CAD: 07/05/2023 HISTORY: Abnormal Mammogram Of Right Breast / Short term follow up right breast.-Abnormal Mammogram calcs/ no symptoms /priors available for comparison. RESULT: TECHNIQUE: The study was acquired using full field digital technology and interpreted from soft copy. Digital Breast Tomosynthesis (DBT) images were obtained and used to assist in the interpretation of this examination. Current study was also evaluated with a Computer Aided Detection (CAD). Comparison is made to exams dated: 01/04/2023 mammogram, 11/24/2022 mammogram, 10/28/2021 mammogram, 08/19/2021 mammogram, and 04/10/2020 mammogram - [facility]. The right breast is heterogeneously dense, which may obscure small masses. There are benign scattered calcifications in the right breast. The grouping of calcifications circled at the posterior breast along the nipple axis on the prior exam are not clearly seen on the current study. A follow up diagnostic mammogram in six months is recommended to reassess. No significant masses, calcifications, or other findings are seen in the breast. IMPRESSION IMPRESSION: PROBABLY BENIGN - SHORT TERM INTERVAL FOLLOW-UP RECOMMENDED The grouping of calcifications circled at the posterior breast on the prior exam are not clearly seen on the current study. A follow-up mammogram in 6 months is recommended to demonstrate stability. Darrel gregg/karen:07/05/2023 16:01:24 Internal Communications Manager(s): RT Alfredo(R)(M), [facility] letter sent: # Mo FU Mammogram BI-RADS: 3 Probably benign finding - short term interval follow-up recommended Multiple national specialty organizations have released breast cancer screening guidelines for women at average risk for developing breast cancer - guidelines that are based on both evidence and opinion, yet differ on when to start and how often to screen for breast cancer. With representation from Breast Imaging, Internal Medicine, Women's Health, Family Medicine, and Medical/Surgical Oncology, the [facility] has carefully reviewed the data and reached the following consensus: 1) All women should engage in shared decision-making with their providers to decide when to start and how often to screen; 2) All women should have the opportunity to start screening mammography at age 40; 3) For women ages 45-55, we recommend annual screening mammograms; 4) For women ages 55 and over, we support both the transition from an annual to a biennial interval if this aligns more with patient's values and preferences, or continuation with annual screening; 5) All women should discuss with their providers when to stop screening mammograms. Retail Department Supervisor: Karen Transcribe Date/Time: Jul 05 2023 3:12P Dictated by: DARREL BURNETT MD This examination was interpreted and the report reviewed and electronically signed by: DARREL BURNETT MD on Jul 05 2023 4:01PM EST [facility] Radiology Study observation (narrative) Nic aguilera [facility] DBT Breast - right diagnosti c for implantOrdered By: [facility] Provider on 07-05-2023 [facility] Basophil percentageOrdered B y: Ginette Oquendo on 05-31-2023 Bilirubin [Mass/Vol] 0.40 mg/dL 0.20-1.00 [facility] Comment on above: For patients on eltr ombopag therapy, use of Dimension [place] TBIL is not recommended. Cholesterol [Mass/Vol] 243 mg/dL <200 [facility] Comment on above: <200 mg/dL Desirable 200-240 mg/dL Borderline >240 mg/dL High Risk Protein [Mass/Vol] 7.5 g/dL 6.4-8.2 [facility] Triglyceride [Mass/Vol] 272 mg/dL <199 [facility] Comment on above: The drugs N-Acetylcy steine and Metamizole may falsely depress this assay.Serum Triglycerides Reference Interval Normal <150 mg/dL Borderline high 150 - 199 mg/dL High 200 - 499 mg/dL Very High > or = 500 mg/dL Direct bilirubinOrdered By: Ginette Oquendo on 05-31-2023 Bilirubin.direct [Mass/Vol] 0.12 mg/dL 0.00-0.30 [facility] - Chemistry and C hemistry - challengeOrdered By: Ginette Oquendo on 05-31-2023 ALP [Catalytic activity/Vol] 102 U/L 45-117 [facility] ALT [Catalytic activity/Vol] 41 U/L 13-56 [facility] Cholesterol in HDL [Mass/Vol] 43 mg/dL >40 [facility] Comment on above: The drugs N-Acetylcy steine and Metamizole may falsely depress this assay. Reference Range HDL <40 mg/dL Low HDL Cholesterol HDL >or= 60 mg/dL High HDL Cholesterol Cholesterol in LDL [Mass/Vol] 146 mg/dL 0-130 [facility] Globulin (S) [Mass/Vol] 3.8 g/dL 2.2-4.2 [facility] No Panel InformationOrdered By: Ginette Oquendo on 05-31-2023 VLDL Cholesterol 54 mg/dL 5-40 [facility] Thin prep Papanicolaou smear with manual screeningOrdered By: Ginette Oquendo on 05-31-2023 Thin prep Papanicolaou smear with manual screening 3.7 g/dL 3.2-5.0 [facility] Thin prep Papanicolaou smear with manual screening 21 U/L 15-37 [facility] TAD DIAGNOSTIC RIGHTon 01-04 [facility] TAD SCREENINGon 11-24-2022 [facility] HEMOGLOBIN A1C (POC)on 06-21 HbA1c (Bld) [Mass fraction] 6.5 % 4.2 - 5.6 % [facility] Urinalysis complete panel (U )on 06-21-2022 Bilirubin Ql (U) Negative Negative [facility] Clarity (Unsp spec) Clear Clear [facility] Color (U) Yellow Yellow [facility] Epithelial cells LM.HPF (Urine sed) [#/Area] Few [facility] Glucose Test strip (U) [Mass/Vol] Negative Trace, Negative [facility] Hemoglobin Ql (U) Negative Negative, Trace [facility] Ketones Ql (U) Negative Trace, Negative [facility] Leukocyte esterase Test strip Ql (U) Negative Negative, 25 Raul/uL [facility] Nitrite Ql (U) Negative Negative [facility] pH (U) 6.5 [pH] 5.0 - 8.0 [facility] Protein (U) [Mass/Vol] Negative Trace , Negative [facility] RBC LM.HPF (Urine sed) [#/Area] 0-3 /HPF 0-3 /HPF [facility] Specific gravity (U) [Rel density] 1.013 1.005 - 1.030 [facility] Urobilinogen Ql (U) Negative Negative [facility] WBC LM.HPF (Urine sed) [#/Area] 0-5 /HPF 0-5 /HPF [facility] TAD DIAGNOSTIC RTon 10-29-19 [facility] PHOSPHORUS INORGANICon 08-20 Phosphate [Mass/Vol] 3.0 mg/dL 2.7 - 4 .8 mg/dL [facility] PTH INTACT BLDon 08-20-2021 Parathyrin.intact [Mass/Vol] 65 pg/mL 15 - 65 pg/mL [facility] No Panel Informationon 08-19 [facility] .Auto Diffon 04-11-2019 Ammonia (P) [Mass/Vol] 0.90 10 3/mcL Normal 0.15-1.00 [facility] ([place]) Comment on above: Performed By: #### C KB BARRETO ANEU #### [place] [address] #### BMP, GFR #### [address] [address] Basophils (Bld) [#/Vol] 0.00 10 3/mcL Normal 0.00-0.19 [facility] ([place]) Comment on above: Performed By: #### KB BARAJAS ANEU #### [place] [address] #### BMP, GFR #### [address] [address] Basophils/100 WBC (Bld) 0.3 % Normal 0.0-2.5 [facility] ([place]) Comment on above: Performed By: #### KB BARAJAS ANEU #### [place] [address] #### BMP, GFR #### [address] [address] Eosinophils (Bld) [#/Vol] 0.00 10 3/mcL Normal 0.00-0.40 [facility] ([place]) Comment on above: Performed By: #### KB BARAJAS ANEU #### [place] [address] #### BMP, GFR #### [address] [address] Eosinophils/100 WBC (Bld) 0.0 % Normal 0.0-7.0 [facility] ([place]) Comment on above: Performed By: #### C BC, ADIFF, ANEU #### [address] [address] #### BMP, GFR #### [address] [address] Lymphocytes (Bld) [#/Vol] 1.10 10 3/mcL Normal 0.77-3.85 [facility] ([place]) Comment on above: Performed By: #### C BC, ADIFF, ANEU #### [place] [address] [address] #### BMP, GFR #### [address] [address] Lymphocytes/100 WBC (Bld) 7.9 % Low 10.0-50.0 [facility] ([place]) Comment on above: Performed By: #### C BC, ADIFF, ANEU #### [address] [address] #### BMP, GFR #### [address] [address] Monocytes/100 WBC (Bld) 6.9 % Normal 1.7-13.0 [facility] ([place]) Comment on above: Performed By: #### C BC, ADIFF, ANEU #### [address] [address] #### BMP, GFR #### [address] [address] Neutrophils/100 WBC (Bld) 84.9 % High 37.0-80.0 [facility] ([place]) Comment on above: Performed By: #### C BC, ADIFF, ANEU #### [address] [address] #### BMP, GFR #### [address] [address] .GFRon 04-11-2019 GFR Non- 55 ml/min/1.73sqm Normal [facility] ([place]) Comment on above: Result Comment: GFR Population mean for , Non- Americans Ages 20-29 = 116 mL/min/1.73 sq.m. Ages 30-39 = 107 mL/min/1.73 sq.m. Ages 40-49 = 99 mL/min/1.73 sq.m. Ages 50-59 = 93 mL/min/1.73 sq.m. Ages 60-69 = 85 mL/min/1.73 sq.m. Ages 70+ = 75 mL/min/1.73 sq.m. Chronic Kidney Disease: Less than 60 mL/min/1.73 square meters End Stage Renal Disease: Less than 15 mL/min/1.73 square meters Performed By: #### C BC, ADIFF, ANEU #### [address] [address] #### BMP, GFR #### [address] [address] GFR 66 ml/min/1.73sqm Normal [facility] ([place]) Comment on above: Result Comment: GFR Population mean for , Non- Americans Ages 20-29 = 116 mL/min/1.73 sq.m. Ages 30-39 = 107 mL/min/1.73 sq.m. Ages 40-49 = 99 mL/min/1.73 sq.m. Ages 50-59 = 93 mL/min/1.73 sq.m. Ages 60-69 = 85 mL/min/1.73 sq.m. Ages 70+ = 75 mL/min/1.73 sq.m. Chronic Kidney Disease: Less than 60 mL/min/1.73 square meters End Stage Renal Disease: Less than 15 mL/min/1.73 square meters Performed By: #### C BC, ADIFF, ANEU #### [address] [address] #### BMP, GFR #### [address] [address] .NEUABSon 04-11-2019 Neutrophils (Bld) [#/Vol] 11.70 10 3/mcL High 2.85-6.16 [facility] ([place]) Comment on above: Performed By: #### C BC, ADIFF, ANEU #### [address] [address] #### BMP, GFR #### [address] [address] BMPon 04-11-2019 Calcium [Mass/Vol] 9.6 mg/dL Normal 8.4-10.2 [facility] ([place] Comment on above: Performed By: #### C BC, ADIFF, ANEU #### [place] [address] #### BMP, GFR #### [address] [address] Chloride [Moles/Vol] 104 mmol/L Normal 98-107 [facility] ([place]) Comment on above: Performed By: #### C BC, ADIFF, ANEU #### [place] [address] #### BMP, GFR #### [place] [address] CO2 [Moles/Vol] 25 mmol/L Normal 23-31 [facility] ([place]) Comment on above: Performed By: #### C BC, ADIFF, ANEU #### [place] [address] #### BMP, GFR #### [place] [address] Creatinine [Mass/Vol] 0.99 mg/dL Normal 0.55-1.02 [facility] ([place]) Comment on above: Performed By: #### C BC, ADIFF, ANEU #### [place] [address] #### BMP, GFR #### [address] [address] Electrolyte Balance 9.0 mEq/L Normal [facility] ([place]) Comment on above: Performed By: #### C BC, ADIFF, ANEU #### [place] [id number] #### BMP, GFR #### [place] [address] Glucose [Mass/Vol] 134 mg/dL High 83-110 [facility] ([place]) Comment on above: Performed By: #### C BC, ADIFF, ANEU #### [address] [address] #### BMP, GFR #### [address] [address] Potassium [Moles/Vol] 4.3 mmol/L Normal 3.5-5.1 [facility] ([place]) Comment on above: Performed By: #### C BC, ADIFF, ANEU #### [address] [address] #### BMP, GFR #### [address] [address] Sodium [Moles/Vol] 138 mmol/L Normal 136-145 [facility] ([place]) Comment on above: Performed By: #### C BC, ADIFF, ANEU #### [address] [address] #### BMP, GFR #### [address] [address] Urea nitrogen [Mass/Vol] 32 mg/dL High 718 [facility] ([place]) Comment on above: Performed By: #### C BC, ADIFF, ANEU #### [address] [address] #### BMP, GFR #### [address] [address] Urea nitrogen/Creatinine [Mass ratio] 32 ratio High 09-30 [facility] ([place]) Comment on above: Performed By: #### C BC, ADIFF, ANEU #### [address] [address] #### BMP, GFR #### [address] [address] CBCon 04-11-2019 Erythrocyte distribution width (RBC) [Ratio] 14.1 % Normal 11.5-14.5 [facility] ([place]) Comment on above: Performed By: #### C BC, ADIFF, ANEU #### [address] [address] #### BMP, GFR #### [address] [address] Hematocrit (Bld) [Volume fraction] 34.3 % Low 37.0-47.0 [facility] ([place]) Comment on above: Performed By: #### C BC, ADIFF, ANEU #### [place] [address] #### BMP, GFR #### [place] [address] Hemoglobin (Bld) [Mass/Vol] 11.7 G/dL Low 12.0-16.0 [facility] ([place]) Comment on above: Performed By: #### C BC, ADIFF, ANEU #### [place] [address] #### BMP, GFR #### [place] [address] MCH (RBC) [Entitic mass] 30.6 pg Normal 27.0-31.2 [facility] ([place]) Comment on above: Performed By: #### C BC, ADIFF, ANEU #### [place] [address] #### BMP, GFR #### [place] [address] MCHC (RBC) [Mass/Vol] 34.0 G/dL Normal 33.0-37.0 [facility] ([place]) Comment on above: Performed By: #### C BC, ADIFF, ANEU #### [place] [address] #### BMP, GFR #### [place] [id number] MCV (RBC) [Entitic vol] 89.9 fL Normal 80.0-94.0 [facility] ([place]) Comment on above: Performed By: #### C BC, ADIFF, ANEU #### [place] [address] #### BMP, GFR #### [address] [address] Platelet mean volume (Bld) [Entitic vol] 9.2 fL Normal 7.4-10.4 [facility] ([place]) Comment on above: Performed By: #### C BC, ADIFF, ANEU #### [address] [address] #### BMP, GFR #### [address] [address] Platelets (Bld) [#/Vol] 166 10 3/mcL Normal 130-400 [facility] ([place]) Comment on above: Performed By: #### C BC, ADIFF, ANEU #### [address] [address] #### BMP, GFR #### [address] [address] RBC (Bld) [#/Vol] 3.82 10 6/mcL Low 4.20-5.40 [facility] ([place]) Comment on above: Performed By: #### C BC, ADIFF, ANEU #### [address] [address] #### BMP, GFR #### [address] [address] WBC (Bld) [#/Vol] 13.80 10 3/mcL High 4.60-10.80 [facility] ([place]) Comment on above: Performed By: #### C BC, ADIFF, ANEU #### [place] [address] #### BMP, GFR #### [address] [address] XR KNEE 1 OR 2 VIEWS LEFTon 04-10-2019 XR KNEE 1 OR 2 VIEWS LEFT ORIGINAL XR KNEE 1 OR 2 VIEWS LEFT CLINICAL STATEMENT: Status Post Arthroplasty. COMPARISON: None, CT knee 03/26/2019 FINDINGS: Medial compartment prosthetic components have been placed in the interim and are well secured. Recent operative artifacts. IMPRESSION: Negative recent postoperative medial compartment arthroplasty x-rays. Interpreted By: Nick Castellanos Preliminary Report By: Nick Castellanos Electronically Signed By: Nick Castellanos Dictated Date: 04/10/2019 11:54:13 AM Prelim Date: 04/10/2019 11:54:13 AM Sign Date: 04/10/2019 11:56:21 AM Ordering Provider:Roland Mckeon [facility] ([place]) .Auto Diffon 03-26-2019 Ammonia (P) [Mass/Vol] 0.50 10 3/mcL Normal 0.15-1.00 [facility] ([place]) Comment on above: Performed By: #### C BCKERRIEIFF, ANEU #### [place] [address] #### BMP, GFR #### [address] [address] Basophils (Bld) [#/Vol] 0.00 10 3/mcL Normal 0.00-0.19 [facility] ([place]) Comment on above: Performed By: #### C BCKB, ANEU #### [place] [address] #### BMP, GFR #### [address] [address] Basophils/100 WBC (Bld) 0.5 % Normal 0.0-2.5 [facility] ([place]) Comment on above: Performed By: #### C BCKERRIEIFF, ANEU #### [place] [address] #### BMP, GFR #### [address] [address] Eosinophils (Bld) [#/Vol] 0.10 10 3/mcL Normal 0.00-0.40 [facility] ([place]) Comment on above: Performed By: #### C BC, ADIFF, ANEU #### [place] [address] #### BMP, GFR #### [address] [address] Eosinophils/100 WBC (Bld) 2.3 % Normal 0.0-7.0 [facility] ([place]) Comment on above: Performed By: #### C BC, ADIFF, ANEU #### [address] [address] #### BMP, GFR #### [address] [address] Lymphocytes (Bld) [#/Vol] 1.60 10 3/mcL Normal 0.77-3.85 [facility] ([place]) Comment on above: Performed By: #### C BC, ADIFF, ANEU #### [address] [address] #### BMP, GFR #### [address] [address] Lymphocytes/100 WBC (Bld) 34.9 % Normal 10.0-50.0 [facility] ([place]) Comment on above: Performed By: #### C BC, ADIFF, ANEU #### [address] [address] #### BMP, GFR #### [address] [address] Monocytes/100 WBC (Bld) 11.0 % Normal 1.7-13.0 [facility] ([place]) Comment on above: Performed By: #### C BC, ADIFF, ANEU #### [address] [address] #### BMP, GFR #### [address] [address] Neutrophils/100 WBC (Bld) 51.3 % Normal 37.0-80.0 [facility] ([place]) Comment on above: Performed By: #### C BC, ADIFF, ANEU #### [address] [address] #### BMP, GFR #### [address] [address] .GFRon 03-26-2019 GFR 74 ml/min/1.73sqm Normal [facility] ([place]) Comment on above: Result Comment: GFR Population mean for , Non- Americans Ages 20-29 = 116 mL/min/1.73 sq.m. Ages 30-39 = 107 mL/min/1.73 sq.m. Ages 40-49 = 99 mL/min/1.73 sq.m. Ages 50-59 = 93 mL/min/1.73 sq.m. Ages 60-69 = 85 mL/min/1.73 sq.m. Ages 70+ = 75 mL/min/1.73 sq.m. Chronic Kidney Disease: Less than 60 mL/min/1.73 square meters End Stage Renal Disease: Less than 15 mL/min/1.73 square meters Performed By: #### C BC, ADIFF, ANEU #### [address] [address] #### BMP, GFR #### [address] [address] GFR Non- 61 ml/min/1.73sqm Normal [facility] ([place]) Comment on above: Result Comment: GFR Population mean for , Non- Americans Ages 20-29 = 116 mL/min/1.73 sq.m. Ages 30-39 = 107 mL/min/1.73 sq.m. Ages 40-49 = 99 mL/min/1.73 sq.m. Ages 50-59 = 93 mL/min/1.73 sq.m. Ages 60-69 = 85 mL/min/1.73 sq.m. Ages 70+ = 75 mL/min/1.73 sq.m. Chronic Kidney Disease: Less than 60 mL/min/1.73 square meters End Stage Renal Disease: Less than 15 mL/min/1.73 square meters Performed By: #### C BC, ADIFF, ANEU #### [address] [address] #### BMP, GFR #### [address] [address] .NEUABSon 03-26-2019 Neutrophils (Bld) [#/Vol] 2.30 10 3/mcL Low 2.85-6.16 [facility] ([place]) Comment on above: Performed By: #### C BC, ADIFF, ANEU #### [address] [address] #### BMP, GFR #### [address] [address] BMPon 03-26-2019 Calcium [Mass/Vol] 9.6 mg/dL Normal 8.4-10.2 [facility] ([place]) Comment on above: Performed By: #### C BC, ADIFF, ANEU #### [address] [address] #### BMP, GFR #### [address] [address] Chloride [Moles/Vol] 104 mmol/L Normal 98-107 [facility] ([place]) Comment on above: Performed By: #### C BC, ADIFF, ANEU #### [address] [address] #### BMP, GFR #### [address] [address] CO2 [Moles/Vol] 28 mmol/L Normal 23-31 [facility] ([place]) Comment on above: Performed By: #### C BC, ADIFF, ANEU #### [address] [address] #### BMP, GFR #### [address] [address] Creatinine [Mass/Vol] 0.90 mg/dL Normal 0.55-1.02 [facility] ([place]) Comment on above: Performed By: #### C BC, ADIFF, ANEU #### [address] [address] #### BMP, GFR #### [address] [address] Electrolyte Balance 11.0 mEq/L Normal [facility] ([place]) Comment on above: Performed By: #### C BC, ADIFF, ANEU #### [address] [address] #### BMP, GFR #### [address] [address] Glucose [Mass/Vol] 98 mg/dL Normal 83-110 [facility] ([place]) Comment on above: Performed By: #### C BC, ADIFF, ANEU #### [address] [address] #### BMP, GFR #### [address] [address] Potassium [Moles/Vol] 4.1 mmol/L Normal 3.5-5.1 [facility] ([place]) Comment on above: Performed By: #### C BC, ADIFF, ANEU #### [address] [address] #### BMP, GFR #### [address] [address] Sodium [Moles/Vol] 143 mmol/L Normal 136-145 [facility] ([place]) Comment on above: Performed By: #### C BC, ADIFF, ANEU #### [address] [address] #### BMP, GFR #### [address] [address] Urea nitrogen [Mass/Vol] 19 mg/dL High 7-18 [facility] ([place]) Comment on above: Performed By: #### C BC, ADIFF, ANEU #### [address] [address] #### BMP, GFR #### [address] [address] Urea nitrogen/Creatinine [Mass ratio] 21 ratio Normal 7-27 [facility] ([place]) Comment on above: Performed By: #### C BC, ADIFF, ANEU #### [address] [address] #### BMP, GFR #### [address] [address] CBCon 03-26-2019 Erythrocyte distribution width (RBC) [Ratio] 14.2 % Normal 11.5-14.5 [facility] ([place]) Comment on above: Performed By: #### C BC, ADIFF, ANEU #### [address] [address] #### BMP, GFR #### [place] [address] Hematocrit (Bld) [Volume fraction] 39.7 % Normal 37.0-47.0 [facility] ([place]) Comment on above: Performed By: #### C BC, ADIFF, ANEU #### [address] [address] #### BMP, GFR #### [place] [address] Hemoglobin (Bld) [Mass/Vol] 13.2 G/dL Normal 12.0-16.0 [facility] ([place]) Comment on above: Performed By: #### C ESTEVAN, KB, ANEU #### [place] [address] #### BMP, GFR #### [place] [address] MCH (RBC) [Entitic mass] 30.1 pg Normal 27.0-31.2 [facility] ([place]) Comment on above: Performed By: #### C ESTEVAN, ADIFF, ANEU #### [place] [address] #### BMP, GFR #### [place] [address] MCHC (RBC) [Mass/Vol] 33.3 G/dL Normal 33.0-37.0 [facility] ([place]) Comment on above: Performed By: #### C ESTEVAN, ADIFF, ANEU #### [place] [address] #### BMP, GFR #### [place] [address] MCV (RBC) [Entitic vol] 90.4 fL Normal 80.0-94.0 [facility] ([place]) Comment on above: Performed By: #### C BC, ADIFF, ANEU #### [place] [address] #### BMP, GFR #### [facility] [address] [place], [place] [address] Platelet mean volume (Bld) [Entitic vol] 9.5 fL Normal 7.4-10.4 [facility] ([place]) Comment on above: Performed By: #### C BC, ADIFF, ANEU #### [address] [address] #### BMP, GFR #### [address] [address] Platelets (Bld) [#/Vol] 185 10 3/mcL Normal 130-400 [facility] ([place]) Comment on above: Performed By: #### C BC, ADIFF, ANEU #### [address] [address] #### BMP, GFR #### [address] [address] RBC (Bld) [#/Vol] 4.39 10 6/mcL Normal 4.20-5.40 [facility] ([place]) Comment on above: Performed By: #### C BC ADIFF, ANEU #### [address] [address] #### BMP, GFR #### [address] [address] WBC (Bld) [#/Vol] 4.60 10 3/mcL Normal 4.60-10.80 [facility] ([place]) Comment on above: Performed By: #### C BC, ADIFF, ANEU #### [address] [address] #### BMP, GFR #### [address] [address] [address] KNEE W/O CONTRAST LEFTon 03-26-2019 CT KNEE W/O CONTRAST LEFT ORIGINAL CT KNEE W/O CONTRAST LEFT CLINICAL STATEMENT: VARUS DEFORMITY, LEFT KNEE COMPARISON: None FINDINGS: This exam was performed according to our departmental dose-optimization program which includes automated exposure control, adjustment of the mA and/or kVp according to patient size and/or use of iterative reconstruction technique where applicable. Survey images of the LEFT hip demonstrate mild degenerative changes. There are enthesophytes noted at the LEFT common hamstring tendon origin. Severe medial tibiofemoral compartment joint space loss and spurring noted. There is mild to moderate lateral tibiofemoral compartment joint space loss and spurring. Moderate patellofemoral joint space loss and spurring visualized. There are enthesophytes at the quadriceps insertion and the patellar tendon origin. A small joint effusion visualized. There is soft tissue swelling. A small loose intra-articular body near the intercondylar notch is 2 to 3 mm on image 57 of series 602. No aggressive osseous lesions seen on the survey images of the LEFT ankle. There are degenerative changes in the visualized ankle/hindfoot. 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 There is a small loose ossified intra-articular body. Interpreted By: Aravind Galloway MD Preliminary Report By: Aravind Galloway MD Electronically Signed By: Aravind Galloway MD Dictated Date: 03/26/2019 4:50:07 PM Prelim Date: 03/26/2019 4:50:07 PM Sign Date: 03/26/2019 4:53:13 PM Ordering Provider:Roland Mckeon [facility] ([place]) .Auto Diffon 05-10-2018 Ammonia (P) [Mass/Vol] 0.80 10 3/mcL Normal 0.15-1.00 [facility] ([place]) Comment on above: Performed By: #### C KB BARRETO ANEU #### [address] [address] #### BMP, GFR #### [address] [address] Basophils (Bld) [#/Vol] 0.00 10 3/mcL Normal 0.00-0.19 [facility] ([place]) Comment on above: Performed By: #### C BCKB ANEU #### [address] [address] #### BMP, GFR #### [address] [address] Basophils/100 WBC (Bld) 0.2 % Normal 0.0-2.5 [facility] ([place]) Comment on above: Performed By: #### C BCKB ANEU #### [address] [address] #### BMP, GFR #### [address] [address] Eosinophils (Bld) [#/Vol] 0.10 10 3/mcL Normal 0.00-0.40 [facility] ([place]) Comment on above: Performed By: #### C BC, ADIFF, ANEU #### [place] [address] #### BMP, GFR #### [address] [address] Eosinophils/100 WBC (Bld) 0.9 % Normal 0.0-7.0 [facility] ([place]) Comment on above: Performed By: #### C BC, ADIFF, ANEU #### [place] [address] #### BMP, GFR #### [address] [address] Lymphocytes (Bld) [#/Vol] 0.90 10 3/mcL Normal 0.77-3.85 [facility] ([place]) Comment on above: Performed By: #### C BC, ADIFF, ANEU #### [place] [address] #### BMP, GFR #### [address] [address] Lymphocytes/100 WBC (Bld) 11.9 % Normal 10.0-50.0 [facility] ([place]) Comment on above: Performed By: #### C BC, ADIFF, ANEU #### [place] [id number] #### BMP, GFR #### [address] [address] Monocytes/100 WBC (Bld) 11.4 % Normal 1.7-13.0 [facility] ([place]) Comment on above: Performed By: #### C BC, ADIFF, ANEU #### [place] [address] #### BMP, GFR #### [address] [address] Neutrophils/100 WBC (Bld) 75.6 % Normal 37.0-80.0 [facility] ([place]) Comment on above: Performed By: #### C KB BARRETO, ANEU #### [place] [place] [address] [place], [place] [address] #### BMP, GFR #### [address] [address] .GFRon 05-10-2018 GFR Non- 48 ml/min/1.73sqm Normal [facility] ([place]) Comment on above: Result Comment: GFR Population mean for , Non- Americans Ages 20-29 = 116 mL/min/1.73 sq.m. Ages 30-39 = 107 mL/min/1.73 sq.m. Ages 40-49 = 99 mL/min/1.73 sq.m. Ages 50-59 = 93 mL/min/1.73 sq.m. Ages 60-69 = 85 mL/min/1.73 sq.m. Ages 70+ = 75 mL/min/1.73 sq.m. Chronic Kidney Disease: Less than 60 mL/min/1.73 square meters End Stage Renal Disease: Less than 15 mL/min/1.73 square meters Performed By: #### C KB BARRETO, ANEU #### [place] [address] [place], [place] [address] #### BMP, GFR #### [address] [address] GFR 58 ml/min/1.73sqm Normal [facility] ([place]) Comment on above: Result Comment: GFR Population mean for , Non- Americans Ages 20-29 = 116 mL/min/1.73 sq.m. Ages 30-39 = 107 mL/min/1.73 sq.m. Ages 40-49 = 99 mL/min/1.73 sq.m. Ages 50-59 = 93 mL/min/1.73 sq.m. Ages 60-69 = 85 mL/min/1.73 sq.m. Ages 70+ = 75 mL/min/1.73 sq.m. Chronic Kidney Disease: Less than 60 mL/min/1.73 square meters End Stage Renal Disease: Less than 15 mL/min/1.73 square meters Performed By: #### C BC, ADIFF, ANEU #### [address] [address] #### BMP, GFR #### [address] [address] .NEUABSon 05-10-2018 Neutrophils (Bld) [#/Vol] 5.50 10 3/mcL Normal 2.85-6.16 [facility] ([place]) Comment on above: Performed By: #### C BC, ADIFF, ANEU #### [place] [address] #### BMP, GFR #### [address] [address] BMPon 05-10-2018 Calcium [Mass/Vol] 9.2 mg/dL Normal 8.4-10.2 [facility] ([place]) Comment on above: Performed By: #### C BC, ADIFF, ANEU #### [address] [address] #### BMP, GFR #### [address] [address] Chloride [Moles/Vol] 104 mmol/L Normal 98-107 [facility] ([place]) Comment on above: Performed By: #### C BC, ADIFF, ANEU #### [place] [address] #### BMP, GFR #### [address] [address] CO2 [Moles/Vol] 26 mmol/L Normal 23-31 [facility] ([place]) Comment on above: Performed By: #### C BC, ADIFF, ANEU #### [place] [address] #### BMP, GFR #### [address] [address] Creatinine [Mass/Vol] 1.11 mg/dL High 0.55-1.02 [facility] ([place]) Comment on above: Performed By: #### C BC, ADIFF, ANEU #### [address] [address] #### BMP, GFR #### [address] [address] Electrolyte Balance 8.0 mEq/L Normal [facility] ([place]) Comment on above: Performed By: #### C BC, ADIFF, ANEU #### [address] [address] #### BMP, GFR #### [address] [address] Glucose [Mass/Vol] 125 mg/dL High 83-110 [facility] ([place]) Comment on above: Performed By: #### C BC, ADIFF, ANEU #### [address] [address] #### BMP, GFR #### [address] [address] Potassium [Moles/Vol] 4.3 mmol/L Normal 3.5-5.1 [facility] ([place]) Comment on above: Performed By: #### C BC, ADIFF, ANEU #### [address] [address] #### BMP, GFR #### [address] [address] Sodium [Moles/Vol] 138 mmol/L Normal 136-145 [facility] ([place]) Comment on above: Performed By: #### C BC, ADIFF, ANEU #### [address] [address] #### BMP, GFR #### [address] [address] Urea nitrogen [Mass/Vol] 30 mg/dL High 7-18 [facility] ([place]) Comment on above: Performed By: #### C BC, ADIFF, ANEU #### [address] [address] #### BMP, GFR #### [address] [address] Urea nitrogen/Creatinine [Mass ratio] 27 ratio Normal 7-27 [facility] ([place]) Comment on above: Performed By: #### C KB BARRETO, ANEU #### [address] [address] #### BMP, GFR #### [address] [address] CBCon 05-10-2018 Erythrocyte distribution width (RBC) [Ratio] 14.7 % High 11.5-14.5 [facility] ([place]) Comment on above: Performed By: #### C KB BARRETO, ANEU #### [address] [address] #### BMP, GFR #### [address] [address] Hematocrit (Bld) [Volume fraction] 33.8 % Low 37.0-47.0 [facility] ([place]) Comment on above: Performed By: #### C KB BARRETO, ANEU #### [place] [address] #### BMP, GFR #### [place] [address] Hemoglobin (Bld) [Mass/Vol] 11.6 G/dL Low 12.0-16.0 [facility] ([place]) Comment on above: Performed By: #### C KB BARRETO, ANEU #### [place] [address] #### BMP, GFR #### [address] [address] MCH (RBC) [Entitic mass] 30.7 pg Normal 27.0-31.2 [facility] ([place]) Comment on above: Performed By: #### C KB BARRETO, ANEU #### [address] [address] #### BMP, GFR #### [address] [address] MCHC (RBC) [Mass/Vol] 34.3 G/dL Normal 33.0-37.0 [facility] ([place]) Comment on above: Performed By: #### C BC, ADIFF, ANEU #### [address] [address] #### BMP, GFR #### [address] [address] MCV (RBC) [Entitic vol] 89.7 fL Normal 80.0-94.0 [facility] ([place]) Comment on above: Performed By: #### C BC, ADIFF, ANEU #### [address] [address] #### BMP, GFR #### [address] [address] Platelet mean volume (Bld) [Entitic vol] 8.5 fL Normal 7.4-10.4 [facility] ([place]) Comment on above: Performed By: #### C BC, ADIFF, ANEU #### [place] [address] #### BMP, GFR #### [address] [address] Platelets (Bld) [#/Vol] 174 10 3/mcL Normal 130-400 [facility] ([place]) Comment on above: Performed By: #### C BC, ADIFF, ANEU #### [place] [address] #### BMP, GFR #### [address] [address] RBC (Bld) [#/Vol] 3.77 10 6/mcL Low 4.20-5.40 [facility] ([place]) Comment on above: Performed By: #### C BC, ADIFF, ANEU #### [place] [id number] #### BMP, GFR #### [address] [address] WBC (Bld) [#/Vol] 7.30 10 3/mcL Normal 4.60-10.80 [facility] ([place]) Comment on above: Performed By: #### C BCKERRIEIFF, ANEU #### [address] [address] #### BMP, GFR #### [address] [address] XR KNEE 1 OR 2 VIEWS RIGHTon 05-10-2018 XR KNEE 1 OR 2 VIEWS RIGHT ORIGINAL XR KNEE 1 OR 2 VIEWS RIGHT, 05/09/2018 1:22 PM INDICATION: Status Post Arthroplasty COMPARISON: No FINDINGS: There is an arthroplasty in near-anatomic alignment. There is no radiographic evidence of loosening or failure of hardware. There are immediate postoperative changes including skin radames and gas in the joint. IMPRESSION: Arthroplasty with immediate postoperative changes. Interpreted By: Ghulam Schafer MD Preliminary Report By: Ghulam Schafer MD Electronically Signed By: Ghulam Schafer MD Dictated Date: 05/10/2018 3:59:52 AM Prelim Date: 05/10/2018 3:59:52 AM Sign Date: 05/10/2018 4:00:30 AM Normal [facility] ([place]) .Auto Diffon 04-24-2018 Ammonia (P) [Mass/Vol] 0.50 10 3/mcL Normal 0.15-1.00 [facility] ([place]) Comment on above: Performed By: #### C KB BARRETO, ANEU #### [address] [address] #### BMP, GFR #### [address] [address] Basophils (Bld) [#/Vol] 0.00 10 3/mcL Normal 0.00-0.19 [facility] ([place]) Comment on above: Performed By: #### C BCKERRIEIFF, ANEU #### [address] [address] #### BMP, GFR #### [address] [address] Basophils/100 WBC (Bld) 0.7 % Normal 0.0-2.5 [facility] ([place]) Comment on above: Performed By: #### C BCKB, ANEU #### [address] [address] #### BMP, GFR #### [address] [address] Eosinophils (Bld) [#/Vol] 0.10 10 3/mcL Normal 0.00-0.40 [facility] ([place]) Comment on above: Performed By: #### C BC, ADIFF, ANEU #### [address] [address] #### BMP, GFR #### [address] [address] Eosinophils/100 WBC (Bld) 2.1 % Normal 0.0-7.0 [facility] ([place]) Comment on above: Performed By: #### C BC, ADIFF, ANEU #### [place] [address] #### BMP, GFR #### [address] [address] Lymphocytes (Bld) [#/Vol] 1.50 10 3/mcL Normal 0.77-3.85 [facility] ([place]) Comment on above: Performed By: #### C BC, ADIFF, ANEU #### [place] [address] #### BMP, GFR #### [address] [address] Lymphocytes/100 WBC (Bld) 34.8 % Normal 10.0-50.0 [facility] ([place]) Comment on above: Performed By: #### C BC, ADIFF, ANEU #### [place] [address] #### BMP, GFR #### [address] [address] Monocytes/100 WBC (Bld) 12.9 % Normal 1.7-13.0 [facility] ([place]) Comment on above: Performed By: #### C BC, ADIFF, ANEU #### [place] [address] #### BMP, GFR #### [address] [address] Neutrophils/100 WBC (Bld) 49.5 % Normal 37.0-80.0 [facility] ([place]) Comment on above: Performed By: #### C KB BARRETO, ANEU #### [address] [place] [address] [place], [place] [address] #### BMP, GFR #### [address] [address] .GFRon 04-24-2018 GFR Non- 52 ml/min/1.73sqm Normal [facility] ([place]) Comment on above: Result Comment: GFR Population mean for , Non- Americans Ages 20-29 = 116 mL/min/1.73 sq.m. Ages 30-39 = 107 mL/min/1.73 sq.m. Ages 40-49 = 99 mL/min/1.73 sq.m. Ages 50-59 = 93 mL/min/1.73 sq.m. Ages 60-69 = 85 mL/min/1.73 sq.m. Ages 70+ = 75 mL/min/1.73 sq.m. Chronic Kidney Disease: Less than 60 mL/min/1.73 square meters End Stage Renal Disease: Less than 15 mL/min/1.73 square meters Performed By: #### C KB BARRETO, ANEU #### [address] [place] [id number] [place], [place] [address] #### BMP, GFR #### [address] [address] GFR 63 ml/min/1.73sqm Normal [facility] ([place]) Comment on above: Result Comment: GFR Population mean for , Non- Americans Ages 20-29 = 116 mL/min/1.73 sq.m. Ages 30-39 = 107 mL/min/1.73 sq.m. Ages 40-49 = 99 mL/min/1.73 sq.m. Ages 50-59 = 93 mL/min/1.73 sq.m. Ages 60-69 = 85 mL/min/1.73 sq.m. Ages 70+ = 75 mL/min/1.73 sq.m. Chronic Kidney Disease: Less than 60 mL/min/1.73 square meters End Stage Renal Disease: Less than 15 mL/min/1.73 square meters Performed By: #### C BC, ADIFF, ANEU #### [place] [address] #### BMP, GFR #### [address] [address] .NEUABSon 04-24-2018 Neutrophils (Bld) [#/Vol] 2.10 10 3/mcL Low 2.85-6.16 [facility] ([place]) Comment on above: Performed By: #### C BC, ADIFF, ANEU #### [place] [address] #### BMP, GFR #### [address] [address] BMPon 04-24-2018 Calcium [Mass/Vol] 10.1 mg/dL Normal 8.4-10.2 [facility] [place] Comment on above: Performed By: #### C BC, ADIFF, ANEU #### [place] [address] #### BMP, GFR #### [address] [address] Chloride [Moles/Vol] 104 mmol/L Normal 98-107 [facility] ([place]) Comment on above: Performed By: #### C BC, ADIFF, ANEU #### [place] [address] #### BMP, GFR #### [place] [address] CO2 [Moles/Vol] 29 mmol/L Normal 23-31 [facility] ([place]) Comment on above: Performed By: #### C BC, ADIFF, ANEU #### [place] [address] #### BMP, GFR #### [address] [address] Creatinine [Mass/Vol] 1.03 mg/dL High 0.55-1.02 [facility] ([place]) Comment on above: Performed By: #### C BC, ADIFF, ANEU #### [address] [address] #### BMP, GFR #### [address] [address] Electrolyte Balance 10.0 mEq/L Normal [facility] [place] ([place]) Comment on above: Performed By: #### C BC, ADIFF, ANEU #### [address] [address] #### BMP, GFR #### [address] [address] Glucose [Mass/Vol] 121 mg/dL High 83-110 [facility] ([place]) Comment on above: Performed By: #### C BC, ADIFF, ANEU #### [address] [address] #### BMP, GFR #### [address] [address] Potassium [Moles/Vol] 4.2 mmol/L Normal 3.5-5.1 [facility] ([place]) Comment on above: Performed By: #### C BC, ADIFF, ANEU #### [address] [address] #### BMP, GFR #### [address] [address] Sodium [Moles/Vol] 143 mmol/L Normal 136-145 [facility] ([place]) Comment on above: Performed By: #### C BC, ADIFF, ANEU #### [address] [address] #### BMP, GFR #### [address] [address] Urea nitrogen [Mass/Vol] 22 mg/dL High 7-18 [facility] ([place]) Comment on above: Performed By: #### C BC, ADIFF, ANEU #### [address] [address] #### BMP, GFR #### [address] [address] Urea nitrogen/Creatinine [Mass ratio] 21 ratio Normal 7-27 [facility] ([place]) Comment on above: Performed By: #### C BCKERRIEIFF, ANEU #### [place] [address] #### BMP, GFR #### [address] [address] CBCon 04-24-2018 Erythrocyte distribution width (RBC) [Ratio] 14.9 % High 11.5-14.5 [facility] ([place]) Comment on above: Performed By: #### C BC ADIFF, ANEU #### [place] [address] #### BMP, GFR #### [place] [address] Hematocrit (Bld) [Volume fraction] 40.2 % Normal 37.0-47.0 [facility] ([place]) Comment on above: Performed By: #### C KB BARRETO, ANEU #### [place] [address] #### BMP, GFR #### [place] [address] Hemoglobin (Bld) [Mass/Vol] 13.5 G/dL Normal 12.0-16.0 [facility] ([place]) Comment on above: Performed By: #### C KERRIE BARRETOIFF, ANEU #### [place] [address] #### BMP, GFR #### [place] [address] MCH (RBC) [Entitic mass] 30.2 pg Normal 27.0-31.2 [facility] ([place]) Comment on above: Performed By: #### C BC, ADIFF, ANEU #### [place] [address] #### BMP, GFR #### [place] [address] MCHC (RBC) [Mass/Vol] 33.7 G/dL Normal 33.0-37.0 [facility] ([place]) Comment on above: Performed By: #### C BC, ADIFF, ANEU #### [address] [address] #### BMP, GFR #### [address] [address] MCV (RBC) [Entitic vol] 89.6 fL Normal 80.0-94.0 [facility] ([place]) Comment on above: Performed By: #### C BC, ADIFF, ANEU #### [address] [address] #### BMP, GFR #### [address] [address] Platelet mean volume (Bld) [Entitic vol] 9.1 fL Normal 7.4-10.4 [facility] ([place]) Comment on above: Performed By: #### C BC, ADIFF, ANEU #### [place] [address] #### BMP, GFR #### [address] [address] Platelets (Bld) [#/Vol] 177 10 3/mcL Normal 130-400 [facility] ([place]) Comment on above: Performed By: #### C BC, ADIFF, ANEU #### [place] [id number] #### BMP, GFR #### [address] [address] RBC (Bld) [#/Vol] 4.49 10 6/mcL Normal 4.20-5.40 [facility] ([place]) Comment on above: Performed By: #### C BC, ADIFF, ANEU #### [place] [address] #### BMP, GFR #### [address] [address] WBC (Bld) [#/Vol] 4.20 10 3/mcL Low 4.60-10.80 [facility] ([place]) Comment on above: Performed By: #### C BC, ADIFF, ANEU #### [facility] [address] [place], [place] [address] #### BMP, GFR #### [facility] [address] [place] [address] CHEM 6on 12-05-2017 Anion gap 3 molar conc 13 mmol/L Normal 7-17 [facility] Comment on above: Performed By: #### C HM6 ####[facility] [place], [place] [id number] [address] [place] [address] Chloride molar conc 104 mmol/L Normal 98-108 [facility] Comment on above: Performed By: #### C HM6 ####[facility] [place] [address], [address] [place] [address] CO2 molar conc 28 mmol/L Normal 22-30 [facility] Comment on above: Performed By: #### C HM6 ####[facility] [place] [address], [address] [place] [address] Creatinine mass conc 0.98 mg/dL Normal 0.50-1.20 [facility] Comment on above: Performed By: #### C HM6 ####[facility] [place], [place] [id number] [address] [place] [address] Est GFR, >60 Normal >60 [facility] Comment on above: Performed By: #### C HM6 ####[facility] [place], [place] [id number] [address] [place] [address] Est GFR,non 55 mL/min/1.73sqM Low >60 [facility] Comment on above: Performed By: #### C HM6 ####[facility] [place] [address], [place] [address] [place] [address] Potassium molar conc 4.7 mmol/L Normal 3.5-5.0 [facility] Comment on above: Performed By: #### C HM6 ####[facility] [place] [address], [place] [address] [place], [place] [id number] [address] [place] [address] Sodium molar conc 140 mmol/L Normal 133-143 [facility] Comment on above: Performed By: #### C HM6 ####[facility] [place] [address], [address] [place] [address] Urea nitrogen mass conc 23 mg/dL High 7-22 [facility] Comment on above: Performed By: #### C HM6 ####[facility] [place] [address], [address] [place] [address] Urea nitrogen/Creatinine mass ratio 23 mg/mg Normal [facility] Comment on above: Performed By: #### C HM6 ####[facility] [place] [address], [place] [address] [place], [place] [id number] [address] [place] [address] Replaced Document: Nadeembob Crowleyon 01-13-2017 electrocardiogram interpretation Sinus Rhythm WITHIN NORMAL LIMITS Invalid Interpretation Code [facility] Work Phone: [phone] GE use only - for Link[employer] import when terms are not otherwise specified 398 ms Invalid Interpretation Code [facility] Work Phone: [phone] Heart rate 67 /min Invalid Interpretation Code [facility] Work Phone: [phone] P wave axis, electrocardiogram 34 deg Invalid Interpretation Code [employer] Work Phone: [phone] SC interval, electrocardiogram 196 ms Invalid Interpretation Code [facility] Work Phone: [phone] QRS axis, electrocardiogram 18 deg Invalid Interpretation Code [facility] Work Phone: [phone] QRS duration, electrocardiogram 100 ms Invalid Interpretation Code [facility] Work Phone: [phone] QT interval, electrocardiogram new path ms Invalid Interpretation Code [facility] Work Phone: [phone] T wave axis, electrocardiogram 46 deg Invalid Interpretation Code [employer] Phone: [phone] Office Visiton 08-26-2016 Documentation of current medications (procedure) Done Invalid Interpretation Code [employer] Phone: [phone] Fall risk assessment No Invalid Interpretation Code [employer] Phone: [phone] Clinical Lists Update: 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 Left ventricular Ejection fraction 65 % Invalid Interpretation Code [facility] Phone: [phone] Lab Report: Basic Metabolic Profile (BMP)on 08-06-2016 Anion gap 8 mmol/L Invalid Interpretation Code 5-15 [employer] Phone: [phone] Anion gap [Moles/Vol] 8 mmol/L Invalid Interpretation Code 5-15 [employer] Phone: [phone] BUN/Creatinine Ratio 19.8 RATIO Invalid Interpretation Code 10-20 [employer] Phone: [phone] Calcium [Mass/Vol] 9.5 mg/dL Invalid Interpretation Code 8.5-10.1 [employer] Phone: [phone] Chloride [Moles/Vol] 100 mmol/L Invalid Interpretation Code 98-107 [facility] Work Phone: [phone] CO2 33.0 mmol/L High 21.0-32.0 [employer] Phone: [phone] CO2 (BldV) [Partial pressure] 33.0 mmol/L High 21.0-32.0 [employer] Phone: [phone] Creatinine [Mass/Vol] 1.16 mg/dL High 0.55-1.02 [facility] [email or web address] Work Phone: [phone] eGFR (non-black) 59 mL/min/{1.73_m2} Low >60 [facility] Work Phone: [phone] GFR/1.73 sq M.predicted among non-blacks MDRD (S/P/Bld) [Vol rate/Area] 49 mL/min/{1.73_m2} Low >60 [employer] Work Phone: [phone] Glomerular Filtration rate 59 mL/min Low >60 [facility] Work Phone: [phone] Glucose [Mass/Vol] 106 mg/dL Invalid Interpretation Code 70-110 [facility] Work Phone: [phone] Potassium [Moles/Vol] 3.8 mmol/L Invalid Interpretation Code 3.5-5.1 [facility] Work Phone: [phone] Sodium [Moles/Vol] 141 mmol/L Invalid Interpretation Code 136-145 [employer] Work Phone: [phone] Urea nitrogen [Mass/Vol] 23 mg/dL High 7-18 [employer] Work Phone: [phone] Urea nitrogen/Creatinine [Mass ratio] 19.8583385 mg/mg Invalid Interpretation Code 10-20 [facility] Work Phone: [phone] Lab Report: Basic Metabolic Profile (BMP)on 08-03-2016 Anion gap [Moles/Vol] 8 mmol/L Invalid Interpretation Code 5-15 [employer] Work Phone: [phone] Calcium [Mass/Vol] 10.0 mg/dL Invalid Interpretation Code 8.5-10.1 [facility] Work Phone: [phone] Chloride [Moles/Vol] 99 mmol/L Invalid Interpretation Code 98-107 [employer] Work Phone: [phone] CO2 (BldV) [Partial pressure] 33.0 mmol/L High 21.0-32.0 [facility] Work Phone: [phone] Creatinine [Mass/Vol] 1.01 mg/dL Invalid Interpretation Code 0.55-1.02 [facility] Work Phone: [phone] GFR/1.73 sq M.predicted among non-blacks MDRD (S/P/Bld) [Vol rate/Area] 57 mL/min/{1.73_m2} Low >60 [employer] Work Phone: [phone] Glomerular Filtration rate 69 mL/min Invalid Interpretation Code >60 [facility] Work Phone: [phone] Glucose [Mass/Vol] 96 mg/dL Invalid Interpretation Code 70-110 [facility] Work Phone: [phone] Potassium [Moles/Vol] 3.0 mmol/L Low 3.5-5.1 [facility] Work Phone: [phone] Sodium [Moles/Vol] 140 mmol/L Invalid Interpretation Code 136-145 [facility] Work Phone: [phone] Urea nitrogen [Mass/Vol] 25 mg/dL High 7-18 [facility] Work Phone: [phone] Urea nitrogen/Creatinine [Mass ratio] 24.2663570 mg/mg High 10-20 [facility] Work Phone: [phone]) Lab Report: CBC-Complete Blo od Cnt No Diffon 08-03-2016 Erythrocyte distribution width (RBC) [Ratio] 13.1 % Invalid Interpretation Code 11.6-14.6 [facility] Work Phone: [phone] Erythrocyte distribution width Auto Ratio (RBC) 13.1 % Invalid Interpretation Code 11.6-14.6 [facility] Work Phone: [phone] Erythrocytes (RBC) 4.28 10*6/uL Invalid Interpretation Code 4.2-5.4 [facility] Work Phone: [phone] Hematocrit (Bld) [Volume fraction] 39.0 % Invalid Interpretation Code 37-47 [facility] Work Phone: [phone] Hematocrit (HCT) 39.0 % Invalid Interpretation Code 37-47 [facility] Work Phone: [phone] Hemoglobin (Bld) [Mass/Vol] 13.2 g/dL Invalid Interpretation Code 12.0-15.0 [facility] Work Phone: [phone] MCH 30.8 pg Invalid Interpretation Code 27.0-32.0 [facility] Work Phone: [phone] MCH (RBC) [Entitic mass] 30.8 pg Invalid Interpretation Code 27.0-32.0 [employer] Work Phone: [phone] MCHC mass conc (RBC) 33.8 G/GL Invalid Interpretation Code 32-36 [employer] Work Phone: [phone] MCV 91.1 fL Invalid Interpretation Code 81-99 [facility] Work Phone: [phone] MCV (RBC) [Entitic vol] 91.1 fL Invalid Interpretation Code 81-99 [facility] Work Phone: [phone] mean corpuscular hemoglobin concentration, RBC 33.8 G/GL Invalid Interpretation Code 32-36 [facility] Work [phone] Platelet mean volume (Bld) [Entitic vol] 11.5 fL Invalid Interpretation Code 6.2-12.0 [facility] Work [phone] Platelets 183 10*3/mm3 Invalid Interpretation Code 150-450 [facility] Work Phone: [phone] Platelets (Bld) [#/Vol] 183 10*3/uL Invalid Interpretation Code 150-450 [facility] Work Phone: [phone] PMV by Carina 11.5 fL Invalid Interpretation Code 6.2-12.0 [facility] Work Phone: [phone] RBC (Bld) [#/Vol] 4.28 10*6/uL Invalid Interpretation Code 4.2-5.4 [facility] Work [phone] RDW SD 42.9 fL Invalid Interpretation Code 35.1-43.9 [facility] Work Phone: [phone] red blood cell distribution width, size density 42.9 fL Invalid Interpretation Code 35.1-43.9 [facility] Work Phone: [phone] WBC (Bld) [#/Vol] 5.5 10*3/uL Invalid Interpretation Code 4.4-11.0 [facility] Work Phone: [phone] WBC (Leukocytes) 5.5 10*3/uL Invalid Interpretation Code 4.4-11.0 [facility] Work Phone: [phone] Replaced Document: Barbara Whyte 08-03-2016 EKG QRS axis 4 deg Invalid Interpretation Code [facility] Work Phone: [phone] electrocardiogram interpretation Sinus Rhythm Voltage criteria for LVH (R(I)+S(III) exceeds 2.50 mV). -Nonspecific ST depression + T-abnormality -Seen with left ventricular hypertrophy (strain) or digitalis effect consider Lateral ischemia. ABNORMAL Invalid Interpretation Code [facility] Phone: [phone] GE use only - for [employer] import when terms are not otherwise specified 409 ms Invalid Interpretation Code [facility] Phone: [phone] Heart rate 72 /min Invalid Interpretation Code [facility] Phone: [phone] Interpretation Sinus Rhythm Voltage criteria for LVH (R(I)+S(III) exceeds 2.50 mV). -Nonspecific ST depression + T-abnormality -Seen with left ventricular hypertrophy (strain) or digitalis effect consider Lateral ischemia. ABNORMAL Invalid Interpretation Code [employer] Phone: [phone] P [place] 31 deg Invalid Interpretation Code [employer] Phone: [phone] P wave axis, electrocardiogram 31 deg Invalid Interpretation Code [employer] Phone: [phone] SC Interval 186 ms Invalid Interpretation Code [employer] Phone: [phone] SC interval, electrocardiogram 186 ms Invalid Interpretation Code [employer] Phone: [phone] QRS axis, electrocardiogram 4 deg Invalid Interpretation Code [facility] Phone: [phone] QRS Duration 102 ms Invalid Interpretation Code [facility] Phone: [phone] QRS duration, electrocardiogram 102 ms Invalid Interpretation Code [employer] Phone: [phone] QT Interval new path ms Invalid Interpretation Code [facility] Phone: [phone] QT interval, electrocardiogram new path ms Invalid Interpretation Code [employer] Phone: [phone] QTc Narayan 409 ms Invalid Interpretation Code [facility] Phone: [phone] T [place] 126 deg Invalid Interpretation Code [facility] Phone: [phone] T wave axis, electrocardiogram 126 deg Invalid Interpretation Code [employer] Phone: [phone] Clinical Lists Update: 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 07-30-2016 Left ventricular Ejection fraction 65 % Invalid Interpretation Code [facility] Work Phone: [phone] Office Visiton 07-02-2016 Dietary management education, guidance, and counseling (procedure) yes Invalid Interpretation Code [facility] Work Phone: [phone] Lab Report: Basic Metabolic Profile (BMP)on 04-21-2016 Anion gap [Moles/Vol] 9 mmol/L Invalid Interpretation Code 5-15 [facility] Work Phone: [phone] Calcium [Mass/Vol] 9.6 mg/dL Invalid Interpretation Code 8.5-10.1 [facility] Work Phone: [phone] Chloride [Moles/Vol] 103 mmol/L Invalid Interpretation Code 98-107 [facility] [email or web address] Work Phone: [phone] CO2 (BldV) [Partial pressure] 32.0 mmol/L Invalid Interpretation Code 21.0-32.0 [facility] Work Phone: [phone] Creatinine [Mass/Vol] 1.12 mg/dL High 0.55-1.02 [facility] Work Phone: [phone] GFR/1.73 sq M.predicted among non-blacks MDRD (S/P/Bld) [Vol rate/Area] 51 mL/min/{1.73_m2} Low >60 [facility] Work Phone: [phone] Glomerular Filtration rate 61 mL/min Invalid Interpretation Code >60 [facility] Work Phone: [phone] Glucose [Mass/Vol] 127 mg/dL High 70-110 [facility] Work Phone: [phone] Potassium [Moles/Vol] 3.5 mmol/L Invalid Interpretation Code 3.5-5.1 [facility] Work Phone: [phone] Sodium [Moles/Vol] 144 mmol/L Invalid Interpretation Code 136-145 [facility] Work Phone: [phone] Urea nitrogen [Mass/Vol] 26 mg/dL High 7-18 [facility] Work Phone: [phone] Urea nitrogen/Creatinine [Mass ratio] 23.9740241 mg/mg High 10-20 [facility] Work Phone: [phone] Lab Report: BNP,B-Type NATRI URETIC PEPTIDEon 01-23-2017 Natriuretic peptide B (Bld) [Mass/Vol] 21.2 pg/mL Invalid Interpretation Code 0-100 [facility] Work Phone: [phone] Clinical Lists Update: 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 03-26-2016 Left ventricular Ejection fraction 60 % Invalid Interpretation Code [facility] Work Phone: [phone] Lab Report: CBC W/Diff, Auto matedon 12-16-2015 Absolute Neut 2.2 X10 3/UL Invalid Interpretation Code 2.0-7.7 [facility] Work Phone: [phone] Basophils/100 WBC (Bld) 0.5 % Invalid Interpretation Code 0-1 [facility] Work Phone: [phone] Basophils/100 WBC Auto (Bld) 0.5 % Invalid Interpretation Code 0-1 [facility] Work Phone: [phone] Eosinophils/100 leukocytes 2.6 % Invalid Interpretation Code 0-5 [employer] Work Phone: [phone] Eosinophils/100 WBC (Bld) 2.6 % Invalid Interpretation Code 0-5 [facility] Work Phone: [phone] Erythrocyte distribution width (RBC) [Ratio] 14.0 % Invalid Interpretation Code 11.6-14.6 [facility] Work Phone: [phone] Hematocrit (Bld) [Volume fraction] 41.1 % Invalid Interpretation Code 37-47 [employer] Phone: [phone] Hemoglobin (Bld) [Mass/Vol] 13.6 g/dL Invalid Interpretation Code 12.0-15.0 [facility] Work Phone: [phone] Immature granulocytes/100 WBC (Bld) 0.200 % Invalid Interpretation Code 0.0-0.9 [facility] Work Phone: [phone] Lymphocytes 1.24 X10 3/UL Invalid Interpretation Code 0.83-4.51 [facility] Work Phone: [phone] Lymphocytes (Bld) [#/Vol] 1.24 X10 3/UL Invalid Interpretation Code 0.83-4.51 [facility] Work Phone: [phone] Lymphocytes/100 leukocytes 29.8 % Invalid Interpretation Code 19-41 [facility] Work Phone: [phone] Lymphocytes/100 WBC (Bld) 29.8 % Invalid Interpretation Code 19-41 [facility] Work Phone: [phone] MCH (RBC) [Entitic mass] 29.5 pg Invalid Interpretation Code 27.0-32.0 [facility] Work Phone: [phone] MCV (RBC) [Entitic vol] 89.2 fL Invalid Interpretation Code 81-99 [facility] Work Phone: [phone] mean corpuscular hemoglobin concentration, RBC 33.1 G/GL Invalid Interpretation Code 32-36 [facility] Work Phone: [phone] Monocytes/100 leukocytes 13.7 % High 0-10 [employer] Work Phone: [phone] Monocytes/100 WBC (Bld) 13.7 % High 0-10 [employer] Work Phone: [phone] neutrophil count, blood 2.2 X10 3/UL Invalid Interpretation Code 2.0-7.7 [employer] Work Phone: [phone] Neutrophils/100 WBC (Bld) 53.2 % Invalid Interpretation Code 47-70 [employer] Work Phone: [phone] Neutrophils/100 WBC Auto (Bld) 53.2 % Invalid Interpretation Code 47-70 [employer] Work Phone: [phone] Platelet mean volume (Bld) [Entitic vol] 13.0 fL High 6.2-12.0 [employer] Work Phone: [phone] Platelets (Bld) [#/Vol] 176 10*3/uL Invalid Interpretation Code 150-450 [employer] Work Phone: [phone] RBC (Bld) [#/Vol] 4.61 10*6/uL Invalid Interpretation Code 4.2-5.4 [facility] Work Phone: [phone] red blood cell distribution width, size density 44.7 fL High 35.1-43.9 [employer] Work Phone: [phone] WBC (Bld) [#/Vol] 4.2 10*3/uL Low 4.4-11.0 [employer] Work Phone: [phone] Replaced Document: Barbara Virgen CG Observationson 12-16-2015 electrocardiogram interpretation Sinus Rhythm - Nonspecific T-abnormality. ABNORMAL Invalid Interpretation Code [employer] Phone: [phone] GE use only - for [employer] import when terms are not otherwise specified 403 ms Invalid Interpretation Code [facility] Phone: [phone] Heart rate 64 /min Invalid Interpretation Code [facility] Work Phone: [phone] P wave axis, electrocardiogram 45 deg Invalid Interpretation Code [employer] Work Phone: [phone] SC interval, electrocardiogram 188 ms Invalid Interpretation Code [employer] Phone: [phone] QRS axis, electrocardiogram 21 deg Invalid Interpretation Code [employer] Phone: [phone] QRS duration, electrocardiogram 104 ms Invalid Interpretation Code [employer] Phone: [phone] QT interval, electrocardiogram new path ms Invalid Interpretation Code [employer] Phone: [phone] T wave axis, electrocardiogram 90 deg Invalid Interpretation Code [employer] Phone: [phone] Office Visit: [facility] 12-09-19 16 Cholesterol [Mass/Vol] 179 mg/dL Invalid Interpretation Code [employer] Phone: [phone] Cholesterol in HDL [Mass/Vol] 56 mg/dL Invalid Interpretation Code [employer] Phone: [phone] Cholesterol in LDL [Mass/Vol] 105 mg/dL Invalid Interpretation Code [facility] Work Phone: [phone] Lipoprotein.pre-beta [Mass/Vol] 18 mg/dL Invalid Interpretation Code [employer] Phone: [phone] Triglyceride [Mass/Vol] 88 mg/dL Invalid Interpretation Code [employer] Phone: [phone] Office Visiton 06-13-2015 Tobacco use status CPHS Never smoker Invalid Interpretation Code [employer] Phone: [phone] Office Visiton 06-07-2014 cardiac risk group C Invalid Interpretation Code [employer] Phone: [phone] General cardiovascular disease 10Y risk [#] Ute.D'Agostino N/A Invalid Interpretation Code [facility] Work Phone: [phone] Clinical Lists Update: 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 04-12-2014 Albumin [Mass/Vol] 4.4 g/dL Invalid Interpretation Code [facility] Work Phone: [phone] Alkaline phosphatase (ALP) 72 U/L Invalid Interpretation Code [facility] Work Phone: [phone] ALP (Bld) [Catalytic activity/Vol] 72 U/L Invalid Interpretation Code [facility] Work Phone: [phone] ALT [Catalytic activity/Vol] 23 U/L Invalid Interpretation Code [employer] Work Phone: [phone] AST [Catalytic activity/Vol] 17 U/L Invalid Interpretation Code [facility] Work Phone: [phone] Bilirubin [Mass/Vol] 0.3 mg/dL Invalid Interpretation Code [facility] Work Phone: [phone] Cholesterol in LDL/Cholesterol in HDL [Mass ratio] 1.37 {ratio} Invalid Interpretation Code [facility] Work Phone: [phone] Cholesterol.total/Divya sterol in HDL [Mass ratio] 3.22 {ratio} Invalid Interpretation Code [facility] Work Phone: [phone] LDL to HDL Ratio 1.37 Invalid Interpretation Code [facility] Work Phone: [phone] Protein [Mass/Vol] 7.1 g/dL Invalid Interpretation Code [facility] Work Phone: [phone] Thyroid stimulating hormone (TSH) 0.683 u[iU]/mL Invalid Interpretation Code [facility] Work Phone: [phone] TSH Qn 0.683 m[IU]/L Invalid Interpretation Code [facility] Work Phone: [phone] Replaced Document: Barbara Virgen CG [place] 10-04-2012 Pulse (Heart Rate) 397 ms Invalid Interpretation Code [facility] Work Phone: [phone] QT interval/QT interval (corrected for heart rate), electrocardiogram 397 ms Invalid Interpretation Code [facility] Work Phone: [phone] Vital Signs Date Time Vital Sign Value Performing Clinician Facility 09-05-2024 18:31-0400 Body temperature 97.2 [degF] Dr. Pam Mcgill MD Work Phone: [phone] [place] [address] 09-05-2024 18:31-0400 Diastolic blood pressure 33 mm[Hg] Dr. Pam Mcgill MD Work Phone: [phone] [place] [address] 09-05-2024 18:31-0400 Heart rate 61 /min Dr. Pam Mcgill MD Work Phone: [phone] [place] [address] 09-05-2024 18:31-0400 Respiratory rate 22 /min Dr. Pam Mcgill MD Work Phone: [phone] [address] [place] [address] 09-05-2024 18:31-0400 SaO2% (BldA) [Mass fraction] 95 % Dr. Pam Mcgill MD Work Phone: 2(119)447-298046 [place] [address] 09-05-2024 18:31-0400 Systolic blood pressure 126 mm[Hg] Dr. Pam Mcgill MD Work Phone: 4(496)227-426146 [place] [address] 09-05-2024 15:52-0400 Body height 152.[address] Pam Mcgill MD Work Phone: 7(067)138-525946 [place] [address] 08-03-2024 13:41-0400 Body temperature 97.5 [degF] Dr. Pam Mcgill MD Work Phone: 5(196)245-860846 [place] [address] 08-03-2024 13:41-0400 Diastolic blood pressure 39 mm[Hg] Dr. Pam Mcgill MD Work Phone: 7(641)841-239446 [place] [address] 08-03-2024 13:41-0400 Heart rate 66 /min Dr. Pam Mcgill MD Work Phone: 4(820)339-033846 [place] [address] 08-03-2024 13:41-0400 Respiratory rate 18 /min Dr. Pam Mcgill MD Work Phone: 2(155)120-119146 [place] [address] 08-03-2024 13:41-0400 SaO2% (BldA) [Mass fraction] 95 % Dr. Pam Mcgill MD Work Phone: 6(532)933-102846 [place] [address] 08-03-2024 13:41-0400 Systolic blood pressure 151 mm[Hg] Dr. Pam Mcgill MD Work Phone: 4(115)782-354646 [place] [address] 08-03-2024 05:29-0400 Inhaled oxygen flow rate 2 L/min Dr. Pam Mcgill MD Work Phone: 4(409)915-502646 [place] [address] 08-03-2024 04:52-0400 Body mass index (BMI) [Ratio] 40.1 kg/m2 Dr. Pam Mcgill MD Work Phone: 6(783)056-447646 [place] [address] 08-03-2024 04:52-0400 Body weight 93.[address] Pam Mcgill MD Work Phone: 0(921)951-014246 [place] [address] 08-02-2024 11:09-0400 Body height 152.[address] Pam Mcgill MD Work Phone: 6(748)901-263446 [place] [address] 08-01-2024 13:09-0400 Body temperature 97.9 [degF] Dr. Pam Mcgill MD Work Phone: 2(187)787-294946 [place] [address] 08-01-2024 13:09-0400 Diastolic blood pressure 63 mm[Hg] Dr. Pam Mcgill MD Work Phone: 6(239)297-977546 [place] [address] 08-01-2024 13:09-0400 Heart rate 72 /min Dr. Pam Mcgill MD Work Phone: 4(145)601-008046 [place] [address] 08-01-2024 13:09-0400 Respiratory rate 21 /min Dr. Pam Mcgill MD Work Phone: 7(510)192-747946 [place] [address] 08-01-2024 13:09-0400 SaO2% (BldA) [Mass fraction] 94 % Dr. Pam Mcgill MD Work Phone: 9(952)297-843646 [place] [address] 08-01-2024 13:09-0400 Systolic blood pressure 172 mm[Hg] Dr. Pam Mcgill MD Work Phone: 7(823)113-348446 [place] [address] 08-01-2024 13:00-0400 Inhaled oxygen flow rate 2 L/min Dr. Pam Mcgill MD Work Phone: [facility] 08-01-2024 08:20-0400 Body height 152.[address] Pam Mcgill MD Work Phone: [facility] 08-01-2024 08:20-0400 Body mass index (BMI) [Ratio] 41.1 kg/m2 Dr. Pam Mcgill MD Work Phone: [facility] 08-01-2024 08:20-0400 Body weight 95.[address] Pam Mcgill MD Work Phone: 1(766)931-814193 [place] [address] 07-19-2024 07:58-0400 Body mass index (BMI) [Ratio] 42.9 kg/m2 Mariya Mcadams MD Work Phone: [facility] 07-19-2024 07:58-0400 Body weight 97.98 kg Mariya Mcadams MD Work Phone: [facility] 07-19-2024 07:58-0400 Diastolic blood pressure 68 mm[Hg] Mariya Mcadams MD Work Phone: [facility] 07-19-2024 07:58-0400 Heart rate 65 /min Mariya Mcadams MD Work Phone: [facility] 07-19-2024 07:58-0400 SaO2% (BldA) [Mass fraction] 90 % Mariya Mcadams MD Work Phone: [facility] 07-19-2024 07:58-0400 Systolic blood pressure 161 mm[Hg] Mariya Mcadams MD Work Phone: [facility] 07-13-2024 09:04-0400 Body height 152.[address] Pam Mcgill MD Work Phone: [facility] 07-13-2024 09:04-0400 Diastolic blood pressure 50 mm[Hg] Dr. Pam Mcgill MD Work Phone: [facility] 07-13-2024 09:04-0400 Systolic blood pressure 128 mm[Hg] Dr. Pam Mcgill MD Work Phone: 7(187)874-746546 [place] [address] 07-13-2024 09:00-0400 Body mass index (BMI) [Ratio] 42.3 kg/m2 Dr. Pam Mcgill MD Work Phone: 3(751)470-033546 [place] [address] 07-13-2024 09:00-0400 Body weight 98.[address] Pam Mcgill MD Work Phone: 7(815)585-798346 [place] [address] 07-13-2024 09:00-0400 Heart rate 66 /min Dr. Pam Mcgill MD Work Phone: 2(772)926-929546 [place] [address] 07-13-2024 09:00-0400 Respiratory rate 22 /min Dr. Pam Mcgill MD Work Phone: 8(654)952-966546 [place] [address] 07-13-2024 09:00-0400 SaO2% (BldA) [Mass fraction] 91 % Dr. Pam Mcgill MD Work Phone: 3(768)414-390646 [place] [address] 07-05-2024 12:55-0400 Body height 152.[address] Pam Mcgill MD Work Phone: 5(638)388-763346 [place] [address] 07-05-2024 12:55-0400 Body mass index (BMI) [Ratio] 43 kg/m2 Dr. Pam Mcgill MD Work Phone: 2(573)761-956846 [place] [address] 07-05-2024 12:55-0400 Body weight 99.[address] Pam Mcgill MD Work Phone: 8(112)234-613846 [place] [address] 07-05-2024 12:55-0400 Diastolic blood pressure 70 mm[Hg] Dr. Pam Mcgill MD Work Phone: 4(198)658-604546 [place] [address] 07-05-2024 12:55-0400 Heart rate 66 /min Dr. Pam Mcgill MD Work Phone: 6(831)428-018546 [place] [address] 07-05-2024 12:55-0400 Respiratory rate 20 /min Dr. Pam Mcgill MD Work Phone: 9(742)291-787246 [place] [address] 07-05-2024 12:55-0400 Systolic blood pressure 154 mm[Hg] Dr. Pam Mcgill MD Work Phone: [facility] 06-20-2024 15:01-0400 Body height 151.1 cm Pulm Wstr Work Phone: [facility] 06-20-2024 15:01-0400 Body mass index (BMI) [Ratio] 43.49 kg/m2 Pulm Wstr Work Phone: [facility] 06-20-2024 15:01-0400 Body weight 99.34 kg Pulm Wstr Work Phone: [facility] 06-20-2024 15:01-0400 Heart rate 71 /min Pulm Wstr Work Phone: [facility] 06-20-2024 15:01-0400 Respiratory rate 18 /min Pulm Wstr Work Phone: [facility] 06-20-2024 15:01-0400 SaO2% (BldA) [Mass fraction] 93 % Pulm Wstr Work Phone: [facility] 05-31-2024 15:31-0400 Diastolic blood pressure 44 mm[Hg] Pam Mcgill MD Work Phone: [facility] 05-31-2024 15:31-0400 Systolic blood pressure 130 mm[Hg] Pam Mcgill MD Work Phone: [facility] 05-31-2024 15:09-0400 Body mass index (BMI) [Ratio] 42.99 kg/m2 Pam Mcgill MD Work Phone: [facility] 05-31-2024 15:09-0400 Body temperature 98.71 [degF] Pam Mcgill MD Work Phone: [facility] 05-31-2024 15:09-0400 Body weight 98.2 kg Pam Mcgill MD Work Phone: [facility] 05-31-2024 15:09-0400 Heart rate 75 /min Pam Mcgill MD Work Phone: [facility] 05-31-2024 15:09-0400 Respiratory rate 18 /min Pam Mcgill MD Work Phone: [facility] 05-31-2024 15:09-0400 SaO2% (BldA) [Mass fraction] 93 % Pam Mcgill MD Work Phone: [facility] 05-28-2024 13:23-0400 Body mass index (BMI) [Ratio] 43.65 kg/m2 Romario Aris [employer]ESS FEEDER.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: [facility] 05-28-2024 13:23-0400 Body temperature 97.3 [degF] Romario Aris [employer]TING PRESS FEEDER.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: [facility] 05-28-2024 13:23-0400 Body weight 99.7 kg Romario Aris [employer] CUTTING PRESS FEEDER.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: [facility] 05-28-2024 13:23-0400 Diastolic blood pressure 64 mm[Hg] Romario Aris [employer]ING [employer] CUTTING PRESS FEEDER.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: [facility] 05-28-2024 13:23-0400 Heart rate 65 /min Romario Aris [employer]ING [employer] CUTTING PRESS FEEDER.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: [facility] 05-28-2024 13:23-0400 Respiratory rate 18 /min Romario Aris [employer]ING [employer] CUTTING PRESS FEEDER.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: [facility] 05-28-2024 13:23-0400 SaO2% (BldA) [Mass fraction] 99 % Romario Aris [employer] CUTTING PRESS FEEDER.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: [facility] 05-28-2024 13:23-0400 Systolic blood pressure 122 mm[Hg] Romario Aris [employer]ING [employer] CUTTING PRESS FEEDER.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: [facility] 04-17-2024 09:46-0500 Body height 152.[address] Pam Mcgill MD Work Phone: [facility] 04-17-2024 09:46-0500 Body mass index (BMI) [Ratio] 42 kg/m2 Dr. Pam Mcgill MD Work Phone: [facility] 04-17-2024 09:46-0500 Body weight 97.[address] Pam Mcgill MD Work Phone: [facility] 04-17-2024 09:46-0500 Diastolic blood pressure 49 mm[Hg] Dr. Pam Mcgill MD Work Phone: [facility] 04-17-2024 09:46-0500 Heart rate 69 /min Dr. Pam Mcgill MD Work Phone: [facility] 04-17-2024 09:46-0500 Respiratory rate 16 /min Dr. Pam Mcgill MD Work Phone: [facility] 04-17-2024 09:46-0500 Systolic blood pressure 123 mm[Hg] Dr. Pam Mcgill MD Work Phone: [facility] 02-24-2024 09:58-0500 Diastolic blood pressure 68 mm[Hg] Pam Mcgill MD Work Phone: [facility] 02-24-2024 09:58-0500 Systolic blood pressure 128 mm[Hg] Pam Mcgill MD Work Phone: [facility] 02-24-2024 09:14-0500 Body mass index (BMI) [Ratio] 43.04 kg/m2 Pam Mcgill MD Work Phone: [facility] 02-24-2024 09:14-0500 Body temperature 97 [degF] Pam Mcgill MD Work Phone: [facility] 02-24-2024 09:14-0500 Body weight 98.3 kg Pam Mcgill MD Work Phone: [facility] 02-24-2024 09:14-0500 Heart rate 77 /min Pam Mcgill MD Work Phone: [facility] 02-24-2024 09:14-0500 Respiratory rate 16 /min Pam Mcgill MD Work Phone: [facility] 02-24-2024 09:14-0500 SaO2% (BldA) [Mass fraction] 96 % Pam Mcgill MD Work Phone: [facility] 10-18-2023 08:15-0400 Body mass index (BMI) [Ratio] 43.39 kg/m2 Pam Mcgill MD Work Phone: [facility] 10-18-2023 08:15-0400 Body temperature 97.5 [degF] Pam Mcgill MD Work Phone: [facility] 10-18-2023 08:15-0400 Body weight 99.1 kg Pam Mcgill MD Work Phone: [facility] 10-18-2023 08:15-0400 Diastolic blood pressure 78 mm[Hg] Pam Mcgill MD Work Phone: [facility] 10-18-2023 08:15-0400 Heart rate 78 /min Pam Mcgill MD Work Phone: [facility] 10-18-2023 08:15-0400 Respiratory rate 16 /min Pam Mcgill MD Work Phone: [facility] 10-18-2023 08:15-0400 SaO2% (BldA) [Mass fraction] 96 % Pam Mcgill MD Work Phone: [facility] 10-18-2023 08:15-0400 Systolic blood pressure 136 mm[Hg] Pam Mcgill MD Work Phone: [facility] 02-14-2023 10:02-0500 Body height 152.[address] Pam Mcgill Work Phone: [facility] 07-13-2022 11:16-0400 Body temperature 96.91 [degF] [place] [employer] APRN.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: [facility] 07-13-2022 11:16-0400 Body weight 97.07 kg [place] P[employer]ler[employer]TING PRESS FEEDER.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: [facility] 07-13-2022 11:16-0400 Diastolic blood pressure 80 mm[Hg] [place] [employer] CUTTING PRESS FEEDER.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: [facility] 07-13-2022 11:16-0400 Heart rate 84 /min [place] [employer]ING [employer] CUTTING PRESS FEEDER.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: [facility] 07-13-2022 11:16-0400 Respiratory rate 18 /min [place] [employer]ING AND CUTTING PRESS FEEDER.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: [facility] 07-13-2022 11:16-0400 SaO2% (BldA) [Mass fraction] 97 % [place] [employer]ING [employer] CUTTING PRESS FEEDER.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: [facility] 07-13-2022 11:16-0400 Systolic blood pressure 136 mm[Hg] [place] [employer]ING AND CUTTING PRESS FEEDER.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: [facility] 06-21-2022 09:43-0400 Body temperature 97.2 [degF] Pam Mcgill MD Work Phone: [facility] 06-21-2022 09:43-0400 Body weight 97.98 kg Pam Mcgill MD Work Phone: [facility] 06-21-2022 09:43-0400 Diastolic blood pressure 72 mm[Hg] Pam Mcgill MD Work Phone: [facility] 06-21-2022 09:43-0400 Heart rate 70 /min Pam Mcgill MD Work Phone: [facility] 06-21-2022 09:43-0400 Respiratory rate 18 /min Pam Mcgill MD Work Phone: [facility] 06-21-2022 09:43-0400 SaO2% (BldA) [Mass fraction] 99 % Pam Mcgill MD Work Phone: [facility] 06-21-2022 09:43-0400 Systolic blood pressure 126 mm[Hg] Pam Mcgill MD Work Phone: [facility] 03-19-2022 09:52-0500 Body weight 99.34 kg Haily Alvarez [employer]ING [employer] CUTTING PRESS FEEDER.DIRECTOR OF BUSINESS OPERATIONS Work Phone: [facility] 03-19-2022 09:52-0500 Diastolic blood pressure 71 mm[Hg] Haily Alvarez [employer]ING AND CUTTING PRESS FEEDER.DIRECTOR OF BUSINESS OPERATIONS Work Phone: [facility] 03-19-2022 09:52-0500 Heart rate 76 /min Haily Alvarez CREASING AND CUTTING PRESS FEEDER.DIRECTOR OF BUSINESS OPERATIONS Work Phone: [facility] 03-19-2022 09:52-0500 Respiratory rate 16 /min Haily Alvarez CREASING AND CUTTING PRESS FEEDER.DIRECTOR OF BUSINESS OPERATIONS Work Phone: [facility] 03-19-2022 09:52-0500 SaO2% (BldA) [Mass fraction] 100 % Haily Alvarez [employer]ING AND CUTTING PRESS FEEDER.DIRECTOR OF BUSINESS OPERATIONS Work Phone: [facility] 03-19-2022 09:52-0500 Systolic blood pressure 134 mm[Hg] Haily Alvarez [employer]ASING AND CUTTING PRESS FEEDER.DIRECTOR OF BUSINESS OPERATIONS Work Phone: [facility] 02-11-2022 11:40-0500 Body height 152.[address] Pam Mcgill Work Phone: [facility] 02-11-2022 11:40-0500 Body mass index (BMI) [Ratio] 43 kg/m2 Dr. Pam Mcgill Work Phone: [facility] 02-11-2022 11:40-0500 Body mass index (BMI) [Ratio] 41.8 kg/m2 Dr. Pam Mcgill Work Phone: [facility] 02-11-2022 11:40-0500 Body weight 99.[address] Pam Mcgill Work Phone: [facility] 02-11-2022 11:40-0500 Body weight 97.[address] Pam Mcgill Work Phone: [facility] 02-11-2022 11:40-0500 Diastolic blood pressure 72 mm[Hg] Dr. Pam Mcgill Work Phone: [facility] 02-11-2022 11:40-0500 Diastolic blood pressure 80 mm[Hg] Dr. Pam Mcgill Work Phone: [facility] 02-11-2022 11:40-0500 Heart rate 68 /min Dr. Pam Mcgill Work Phone: 9(048)609-549593 [place] [address] 02-11-2022 11:40-0500 Heart rate 71 /min Dr. Pam Mcgill Work Phone: 7(632)658-207293 [place] [address] 02-11-2022 11:40-0500 Respiratory rate 16 /min Dr. Pam Mcgill Work Phone: 7(320)994-402846 [place] [address] 02-11-2022 11:40-0500 Respiratory rate 20 /min Dr. Pam Mcgill Work Phone: 0(667)246-045093 [place] [address] 02-11-2022 11:40-0500 SaO2% (BldA) [Mass fraction] 96 % Dr. Pam Mcgill Work Phone: 2(279)521-856193 [place] [address] 02-11-2022 11:40-0500 Systolic blood pressure 123 mm[Hg] Dr. Pam Mcgill Work Phone: [facility] 02-11-2022 11:40-0500 Systolic blood pressure 137 mm[Hg] Dr. Pam Mcgill Work Phone: [facility] 11-11-2021 10:43-0400 Body weight 99.34 kg Pam Mcgill MD Work Phone: [facility] 11-11-2021 10:43-0400 Diastolic blood pressure 80 mm[Hg] Pam Mcgill MD Work Phone: [facility] 11-11-2021 10:43-0400 Heart rate 71 /min Pam Mcgill MD Work Phone: [facility] 11-11-2021 10:43-0400 SaO2% (BldA) [Mass fraction] 96 % Pam Mcgill MD Work Phone: [facility] 11-11-2021 10:43-0400 Systolic blood pressure 128 mm[Hg] Pam Mcgill MD Work Phone: [facility] 07-17-2021 10:42-0400 Body weight 98.88 kg Pam Mcgill MD Work Phone: [facility] 07-17-2021 10:42-0400 Diastolic blood pressure 72 mm[Hg] Pam Mcgill MD Work Phone: [facility] 07-17-2021 10:42-0400 Heart rate 76 /min Pam Mcgill MD Work Phone: [facility] 07-17-2021 10:42-0400 Systolic blood pressure 122 mm[Hg] Pam Mcgill MD Work Phone: [facility] 01-13-2017 10:31-0500 Body height 153.67 cm Noni Lebron Work Phone: [facility] Work Phone: 01-13-2017 10:31-0500 Body mass index (BMI) [Ratio] 40.14 kg/m2 Noni Lebron Work Phone: [facility] Work Phone: 01-13-2017 10:31-0500 Body temperature 97.5 [degF] Noni Lebron Work Phone: [facility] Work Phone: 01-13-2017 10:31-0500 Body weight 94.8 kg Noni Lebron Work Phone: [facility] Work Phone: 01-13-2017 10:31-0500 Diastolic blood pressure 70 mm[Hg] Noni Lebron Work Phone: [facility] Work Phone: 01-13-2017 10:31-0500 Heart rate 67 /min Noni Lebron Work Phone: [facility] Work Phone: 01-13-2017 10:31-0500 Respiratory rate 20 /min Noni Lebron Work Phone: [facility] Work Phone: 01-13-2017 10:31-0500 Systolic blood pressure 140 mm[Hg] Noni Lebron Work Phone: [facility] Work Phone: 08-26-2016 14:41-0400 Body height 153.67 cm Noni Lebron Work Phone: [facility] Work Phone: 08-26-2016 14:41-0400 Body mass index (BMI) [Ratio] 38.99 kg/m2 Noni Lebron Work Phone: [facility] Work Phone: 08-26-2016 14:41-0400 Body weight 92.08 kg Noni Lebron Work Phone: [facility] Work Phone: 08-26-2016 14:41-0400 Diastolic blood pressure 60 mm[Hg] Noni Lebron Work Phone: [facility] Work Phone: 08-26-2016 14:41-0400 Heart rate 84 /min Noni Lebron Work Phone: [facility] Work Phone: 08-26-2016 14:41-0400 Respiratory rate 20 /min Noni Lebron Work Phone: [facility] Work Phone: 08-26-2016 14:41-0400 Systolic blood pressure 110 mm[Hg] Noni Lebron Work Phone: [facility] Work Phone: 08-26-2016 14:41-0400 Weight 92.08 kg Coni Webb RN [facility] Work Phone: 08-03-2016 10:49-0400 Body height 153.67 cm Dana Turpin RN Work Phone: [facility] Work Phone: 08-03-2016 10:49-0400 Body mass index (BMI) [Ratio] 38.6 kg/m2 Dana Turpin RN Work Phone: [facility] Work Phone: 08-03-2016 10:49-0400 Body weight 91.17 kg Dana Turpin RN Work Phone: [facility] Work Phone: 08-03-2016 10:49-0400 Diastolic blood pressure 50 mm[Hg] Dana Turpin RN Work Phone: [facility] Work Phone: 08-03-2016 10:49-0400 Heart rate 76 /min Dana Turpin RN Work Phone: [facility] Work Phone: 08-03-2016 10:49-0400 Respiratory rate 20 /min Dana Turpin RN Work Phone: [facility] Work Phone: 08-03-2016 10:49-0400 Systolic blood pressure 120 mm[Hg] Dana Turpin RN Work Phone: [facility] Work Phone: 07-02-2016 09:03-0400 Body height 153.67 cm Noni Lebron Work Phone: [facility] Work Phone: 07-02-2016 09:03-0400 Body mass index (BMI) [Ratio] 38.22 kg/m2 Noni Lebron Work Phone: [facility] Work Phone: 07-02-2016 09:03-0400 Body weight 90.27 kg Noni Lebron Work Phone: [facility] Work Phone: 07-02-2016 09:03-0400 Diastolic blood pressure 68 mm[Hg] Noni Lebrno Work Phone: [facility] Work Phone: 07-02-2016 09:03-0400 Heart rate 76 /min Noni Lebron Work Phone: [facility] Work Phone: 07-02-2016 09:03-0400 Respiratory rate 18 /min Noni Lebron Work Phone: [facility] Work Phone: 07-02-2016 09:03-0400 Systolic blood pressure 122 mm[Hg] Nnoi Lebron Work Phone: [facility] Work Phone: 03-29-2016 09:48-0500 Body surface area Derived from formula 1.86 m2 Noni Lebron Work Phone: [facility] Work Phone: Encounters Encounter Date Encounter Type Care Provider Facility Start: 09-05-2024 Evaluation and manag ement of inpatient Dr. Neeraj Velázquez DO -Progressive Care Unit Work Phone: Start: 08-20-2024 End: 08-20-2024 [facility] Start: 08-20-2024 End: 08-20-2024 [facility] Start: 08-10-2024 End: 08-10-[address] Pam Mcgill MD Work Phone: [facility] Work Phone: Start: 08-10-2024 End: 08-10-[address] Nahun Diaz MD -Laboratory Work Phone: Start: 08-10-2024 End: 08-10-2024 ambulatory Nahun Diaz Facility:[facility] Start: 08-03-2024 Non-patient / Non-visit Dr. Nahun langston MD -[facility] Work Phone: Start: 08-02-2024 Non-patient / Non-visit Dr. Nahun langston MD -[facility] Work Phone: Start: 08-01-2024 ambulatory Michael Martinez Facility:[facility] Start: 08-01-2024 Non-patient / Non-visit Dr. Michael estes MD -[facility] Start: 08-01-2024 ambulatory Nahun Diaz Facility:[facility] Start: 08-01-2024 End: 08-03-2024 Evaluation and management of inpatient Dr. Nahun Diaz MD -Progressive Care Unit Work Phone: Start: 07-31-2024 End: 08-01-2024 Telephone encounter Mariya Mcadams MD Work Phone: Pre Anesthesia Comment on above: Patient Question (do es patient need oxygen for bedtime?) Start: 07-20-2024 End: 07-20-2024 Telephone encounter Mariya Mcadams MD Work Phone: Pulmonary Medicine Comment on above: Results Start: 07-19-2024 End: 07-19-2024 Telephone encounter Mariya Mcadams MD Work Phone: [address] [place] [address] Comment on above: Medication Problem Start: 07-19-2024 End: 07-19-2024 Subsequent hospital visit by physician Xr [facility] Work Phone: Radiology Comment on above: SOB (shortness of br eath) [R06.02] Start: 07-19-2024 End: 07-19-2024 Patient encounter procedure Pulm Lab [facility] Work Phone: PULM LAB [facility] Comment on above: SOB (shortness of br eath) (Primary Dx); Mild persistent asthma, unspecified whether complicated (HCC); Diastolic dysfunction; Morbid obesity (HCC) Start: 07-19-2024 End: 07-19-2024 ambulatory [facility] Work Phone: PULM LAB [facility] Comment on above: Spirometry Start: 07-13-2024 End: 07-13-[address] Pam Mcgill MD Work Phone: [facility] Work Phone: Start: 07-13-2024 End: 07-13-2024 Patient encounter procedure Dana DE [place] -[facility] Work Phone: Start: 07-13-2024 End: 07-13-2024 ambulatory Dana DE LOS SANTOS Facility:[facility] Start: 07-05-2024 End: 07-05-[address] Pam Mcgill MD Work Phone: [facility] Work Phone: Start: 07-05-2024 End: 07-05-2024 Patient encounter procedure Dana DE LOS SANTOS -Radiology, [facility] Work Phone: Start: 07-05-2024 End: 07-05-2024 Patient encounter procedure Dana DE LOS SANTOS -[facility] Work Phone: Start: 07-05-2024 End: 07-05-2024 ambulatory Dana DE LOS SANTOS Facility:[facility] Start: 07-05-2024 End: 07-05-2024 ambulatory Dana DE LOS SANTOS Facility:[facility] Start: 06-28-2024 End: 06-28-2024 ambulatory [facility] Facility:[facility] Start: 06-20-2024 End: 06-20-2024 Patient encounter procedure Pulm Lab [facility] Work Phone: [facility] Start: 06-20-2024 End: 06-20-2024 ambulatory Pulm Lab [facility] Work Phone: [facility] LAB [facility] Comment on above: Spirometry Start: 06-18-2024 End: 06-18-2024 Follow-up encounter Pam Mcgill MD Work Phone: [facility] [place] Start: 06-15-2024 End: 06-19-2024 Telephone encounter Pam Mcgill MD Work Phone: [facility] [place] Comment on above: Results Start: 06-13-2024 End: 06-13-2024 ambulatory PAM MCGILL Facility:[facility] Start: 06-13-2024 End: 06-13-2024 Subsequent hospital visit by physician Xr [facility] Work Phone: Radiology Comment on above: Pneumonia of both lo wer lobes due to infectious organism [J18.9] Start: 05-31-2024 End: 05-31-2024 ambulatory PAM MCGILL Facility:[facility] Start: 05-31-2024 End: 05-31-2024 Office outpatient visit 25 minutes Pam Mcgill MD Work Phone: [facility] [place] Comment on above: Pneumonia of both lo wer lobes due to infectious organism (Primary Dx); Primary hypertension; Moderate persistent asthma with exacerbation; Bilateral leg edema Start: 05-28-2024 End: 05-28-2024 Subsequent hospital visit by physician Xr [facility] [place] Work Phone: Radiology Comment on above: Wheeze [R06.2] Start: 05-28-2024 End: 05-28-2024 ambulatory PAM MCGILL Facility:[facility] Start: 05-28-2024 End: 05-28-2024 Patient encounter procedure Romario King TOBY Work Phone: [facility] Comment on above: Community acquired p neumonia, unspecified laterality (Primary Dx); Wheeze Start: 05-23-2024 Non-patient / Non-visit Dr. Vahe RAIN -[facility] Start: 05-23-2024 End: 05-23-[address] Pam Mcgill MD Work Phone: [facility] Work Phone: Start: 05-23-2024 End: 05-23-[address] Reggie Olguin MD -[facility] Work Phone: Start: 05-23-2024 End: 05-23-2024 ambulatory Reggie Olguin Facility:[facility] Start: 04-17-2024 End: 04-17-[address] Reggie Olguin MD -[facility] Work Phone: Start: 04-17-2024 End: 04-17-2024 ambulatory Reggie Olguin Facility:[facility] Start: 02-25-2024 End: 03-21-2024 ambulatory Pam Mcgill MD Work Phone: [facility] [place] Comment on above: Medications on hold Start: 02-24-2024 End: 02-24-2024 ambulatory PAM MCGILL Facility:[facility] Start: 02-24-2024 End: 02-24-2024 Office outpatient visit 25 minutes Pam Mcgill MD Work Phone: [facility] [place] Comment on above: Controlled type 2 di abetes mellitus without complication, without long-term current use of insulin (HCC) (Primary Dx); OPHELIA on CPAP; Age-related osteoporosis without current pathological fracture; Acquired hypothyroidism; Hypercalcemia; Vitamin D deficiency; S/P subtotal parathyroidectomy; Mild intermittent asthma without complication; Essential (primary) hypertension; Mixed hyperlipidemia; Screening for diabetic retinopathy; Encounter for immunization; Bilateral leg edema Start: 02-20-2024 End: 02-20-2024 ambulatory PAM MCGILL Facility:[facility] Start: 12-05-2023 End: 12-05-2023 ambulatory PAM MCGILL Facility:[facility] Start: 12-05-2023 End: 12-05-2023 Subsequent hospital visit by physician Bone Density [facility] Work Phone: Radiology Comment on above: Asymptomatic postmen opausal status [Z78.0] Start: 10-18-2023 End: 10-18-2023 ambulatory PAM MCGILL Facility:[facility] Start: 10-18-2023 End: 10-18-2023 Office outpatient visit 25 minutes Pam Mcgill MD Work Phone: [facility] [place] Comment on above: Controlled type 2 di abetes mellitus without complication, without long-term current use of insulin (HCC) (Primary Dx); Hypercalcemia; Acquired hypothyroidism; OPHELIA on CPAP; Osteopenia of spine; Vitamin D deficiency; S/P subtotal parathyroidectomy; Mixed hyperlipidemia; Class 3 severe obesity due to excess calories with body mass index (BMI) of 40.0 to 44.9 in adult, unspecified whether serious comorbidity present (HCC); Asymptomatic postmenopausal status Start: 10-10-2023 End: 10-10-2023 ambulatory PAM MCGILL Facility:[facility] Start: 07-10-2023 Orders Only Haily Alvarez GEOVANY Work Phone: [facility] [place] Comment on above: Abnormal mammogram o f right breast (Primary Dx) Start: 07-05-2023 End: 07-05-2023 Subsequent hospital visit by physician Diagnostic Mammo [facility] Mammogram Start: 07-05-2023 Documentation procedure Mammog reuben Coordinator [facility] Department Start: 07-05-2023 Letter encounter Mammography Coordinator [facility] Start: 06-10-2023 End: 06-10-2023 Office outpatient visit 25 minutes Pam Mcgill MD Work Phone: [facility] [place] Comment on above: Acquired hypothyroid ism (Primary Dx); Controlled type 2 diabetes mellitus without complication, without long-term current use of insulin (HCC); Hypercalcemia; Vitamin D deficiency; S/P subtotal parathyroidectomy; Primary hypertension; Mixed hyperlipidemia; Chronic fatigue; OPHELIA on CPAP; Class 3 severe obesity due to excess calories with body mass index (BMI) of 40.0 to 44.9 in adult, unspecified whether serious comorbidity present (HCC) Start: 05-31-2023 End: 05-31-[address] Pam Mcgill Work Phone: [facility] Work Phone: Start: 05-31-2023 End: 05-31-[address] Pam Mcgill Work Phone: [facility] Work Phone: Start: 03-24-2023 Non-patient / Non-visit Dr. Soraya Mcgill Work Phone: [facility] Work Phone: Start: 03-23-2023 Non-patient / Non-visit Dr. Soraya Mcgill Work Phone: [facility] Start: 03-23-2023 End: 03-23-[address] Pam Mcgill Work Phone: [facility] Work Phone: Start: 03-23-2023 End: 03-23-[address] Pam Mcgill Work Phone: [facility] Work Phone: Start: 02-14-2023 End: 02-14-[address] Pam Mcgill Work Phone: [facility] Work Phone: Start: 01-04-2023 End: 01-04-2023 Subsequent hospital visit by physician Diagnostic Mammo [facility] Mammogram Comment on above: Abnormal mammogram o f right breast [R92.8] Start: 12-24-2022 ambulatory Pam lynch MD Work Phone: [facility] [place] Comment on above: Right breast re-chec k Start: 12-09-2022 ambulatory Pam lynch MD Work Phone: [facility] [place] Comment on above: Additional imaging o f right breast Start: 11-24-2022 Documentation procedure Mammog reuben Coordinator [facility] Start: 11-24-2022 Letter encounter Mammography Coordinator [facility] Department Start: 11-24-2022 End: 11-24-2022 Subsequent hospital visit by physician Screen Mammo [facility] Mammogram Comment on above: Breast cancer screen ing by mammogram [Z12.31] Start: 10-20-2022 ambulatory Pam lynch MD Work Phone: [facility] [place] Comment on above: Mammogram Start: 07-13-2022 End: 07-13-2022 Patient encounter procedure [place] Live APRN.CNP Work Phone: [facility] Comment on above: Acute sinusitis, rec urrence not specified, unspecified location (Primary Dx) Start: 06-21-2022 End: 06-21-2022 Office outpatient visit 25 minutes Pam Mcgill MD Work Phone: [facility] [place] Comment on above: IFG (impaired fastin g glucose) (Primary Dx); OPHELIA (obstructive sleep apnea); Gross hematuria; Acquired hypothyroidism; Mixed hyperlipidemia; Vitamin D deficiency; Primary hypertension; Class 3 severe obesity due to excess calories with body mass index (BMI) of 40.0 to 44.9 in adult, unspecified whether serious comorbidity present (HCC); Atherosclerosis of [place] coronary artery of [place] heart without angina pectoris; S/P subtotal parathyroidectomy (HCC) Start: 03-25-2022 Non-patient / Non-visit Dr. Soraya Mcgill Work Phone: [facility] Start: 03-25-2022 End: 03-25-[address] Pam Mcgill Work Phone: [facility] Work Phone: Start: 03-25-2022 End: 03-25-[address] Pam Mcgill Work Phone: [facility] Start: 03-19-2022 End: 03-19-2022 Office outpatient visit 25 minutes Haily Alvarez APRN.CNS Work Phone: [facility] [place] Comment on above: Primary hypertension (Primary Dx); Encounter for immunization; Atherosclerosis of [place] coronary artery of [place] heart without angina pectoris; S/P AVR (aortic valve replacement); Mixed hyperlipidemia; Nonrheumatic aortic insufficiency with aortic stenosis; Class 3 severe obesity due to excess calories with body mass index (BMI) of 40.0 to 44.9 in adult, unspecified whether serious comorbidity present (HCC); History of asthma; Acquired hypothyroidism; IFG (impaired fasting glucose); Acquired hypothyroidism; Asthma, unspecified asthma severity, unspecified whether complicated, unspecified whether persistent Start: 02-11-2022 End: 02-11-[address] Pam Mcgill Work Phone: [facility] Start: 11-11-2021 End: 11-11-2021 Office outpatient visit 25 minutes Pam Mcgill MD Work Phone: [facility] [place] Comment on above: Essential hypertensi on (Primary Dx); Asthma, unspecified asthma severity, unspecified whether complicated, unspecified whether persistent; Vitamin D deficiency; IFG (impaired fasting glucose); S/P subtotal parathyroidectomy (HCC); Mixed hyperlipidemia; Acquired hypothyroidism; Class 3 severe obesity due to excess calories with body mass index (BMI) of 40.0 to 44.9 in adult, unspecified whether serious comorbidity present (HCC); Encounter for long-term current use of medication Start: 10-28-2021 End: 10-28-2021 Subsequent hospital visit by physician Diagnostic Mammo [facility] Mammogram Comment on above: Abnormal mammogram [ R92.8] Start: 09-17-2021 Get Medical Advice Pam bergeron MD Work Phone: [facility] [place] Comment on above: Mammogram follow up order Start: 08-19-2021 End: 08-19-2021 Subsequent hospital visit by physician Screen Mammo [facility] Mammogram Comment on above: Breast cancer screen ing by mammogram [Z12.31] Start: 07-17-2021 End: 07-17-2021 Office outpatient visit 25 minutes Pam Mcgill MD Work Phone: [facility] [place] Comment on above: Acquired hypothyroid ism (Primary Dx); Vitamin D deficiency; Essential hypertension; IFG (impaired fasting glucose); S/P subtotal parathyroidectomy (HCC); Hypercalcemia; Breast cancer screening by mammogram; Encounter for long-term current use of medication Start: 12-05-2017 Patient encounter NASEEM BENDER [facility] Procedures Date Procedure Procedure Detail Performing Clinician Start: 08-03-[address] Pam Mcgill MD Work Phone: Start: 08-02-2024 Serum inorganic phos phate measurement Dr. Pam Mcgill MD Work Phone: Start: 08-01-2024 X-ray of chest, PA a nd lateral views Dr. Pam Mcgill MD Work Phone: Start: 08-01-2024 D-dimer assay, quantitative Dr. Pam Mcgill MD Work Phone: Comment on above: CRITICAL VALUE GOFF D TO OSCAR COLLIER08/01/24 0945 Brigitterolando Boss.RESULTS READ BACK BY SAME. D-Dimer ELEVATED (>0.49): Additional studies and clinicalassessments are indicated to conclude diagnosis of:Deep Vein Thrombosis (DVT) or Pulmonary Embolism (PE) Start: 08-01-[address] Pam Mcgill MD Work Phone: Start: 07-19-2024 Radiologic exam chest 2 views Mariya Mcadams MD Work Phone: Start: 07-19-2024 Nitric oxide gas determination Mariya Mcadams MD Work Phone: Start: 07-05-2024 X-ray of chest, PA a nd lateral views Dr. Pam Mcgill MD Work Phone: Start: 06-20-2024 Plethysmography lung volumes w/wo airway resist Pam Mcgill MD Work Phone: Start: 06-13-2024 Radiologic exam chest 2 views Pam Mcgill MD Work Phone: Start: 05-28-2024 Radiologic exam chest 2 views Romario Hurst [employer]TING 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: Start: 12-05-2023 Dxa bone density beatris dy 1/> sites axial skel Pam Mcgill MD Work Phone: Start: 07-05-2023 Digital breast tomos ynthesis unilateral [facility] [employer]TING [employer] FEEDER.DIRECTOR OF BUSINESS OPERATIONS Work Phone: Start: 01-04-2023 Diagnostic mammograp hy computer-aided detcj uni [facility] [employer]TING [employer] FEEDER.DIRECTOR OF BUSINESS OPERATIONS Work Phone: Start: 11-24-2022 Screening mammograph y bi 2-view breast inc cad Pam Mcgill MD Work Phone: Start: 06-21-2022 Hemoglobin A1c/Hemoglobin.total in Blood Pam Mcgill MD Work Phone: Start: 06-21-2022 Urnls dip stick/tabl et reagent auto microscopy Pam Mcgill MD Work Phone: Start: 10-28-2021 Diagnostic mammograp hy computer-aided detcj [facility] Haily Alvarez [employer] C[employer]TING PRESS FEEDER.DIRECTOR OF BUSINESS OPERATIONS Work Phone: Start: 08-19-2021 Screening mammograph y bi 2-view breast inc cad Pam Mcgill MD Work Phone: Start: 12-05-2017 Echocardiography NASEEM O'BISHNU Start: 01-13-2017 End: 01-13-2017 Documentation of current medications Noni Lebron Work Phone: Start: 01-13-2017 End: 01-13-2017 Ecg routine ecg w/least 12 lds w/i&r Reggie Olguin MD Start: 01-13-2017 End: 01-13-2017 Follow Up Appt 4 months Claudia Toscano Start: 01-13-2017 End: 01-13-2017 MMM Reggie Olguin MD Start: 12-24-2016 Replacement of aortic valve Ao rtic valve replacement Coni Webb RN Start: 08-26-2016 End: 08-26-2016 Documentation of current medications Noni Lebron Work Phone: Start: 08-26-2016 End: 09-08-2016 RON Olguin MD Start: 08-26-2016 End: 09-08-2016 Follow Up Appt 3 months Claudia Toscano Start: 08-26-2016 End: 08-31-2016 Transesophageal echocardiogram (CHRISTIAN) Reggie Olguin MD Start: 08-26-2016 End: 09-08-2016 RON Olguin MD Start: 08-26-2016 End: 09-08-2016 Follow Up Appt 3 months Claudia Toscano Start: 08-26-2016 End: 08-31-2016 Transesophageal echocardiogram (CHRISTIAN) Reggie Olguin MD Start: 08-03-2016 End: 08-09-2016 *BMP Reggie Olguin MD Start: 08-03-2016 End: 08-03-2016 CBC W Auto Differential panel - Blood Reggie Olguin MD Start: 08-03-2016 End: 08-09-2016 Chest x-ray Reggie Olguin MD Start: 08-03-2016 End: 08-31-2016 Ecg routine ecg w/least 12 lds w/i&r Reggie Olguin MD Start: 08-03-2016 End: 09-08-2016 Follow Up Appt 6 months Claudia Toscano Start: 08-03-2016 End: 08-31-2016 Left & Right Heart Cath Claudia Toscano Start: 08-03-2016 End: 09-08-2016 MMM Reggie Olguin MD Start: 08-03-2016 End: 08-03-2016 Documentation of current medications Dana Turpin RN Work Phone: Start: 08-03-2016 End: 08-09-2016 Basic metabolic 2000 panel - Serum or Plasma Reggie Olguin MD Start: 08-03-2016 End: 08-03-2016 CBC W Auto Differential panel - Blood Reggie Olguin MD Start: 08-03-2016 End: 08-09-2016 Chest x-ray Reggie Olguin MD Start: 08-03-2016 End: 08-31-2016 Ecg routine ecg w/least 12 lds w/i&r Reggie Olguin MD Start: 08-03-2016 End: 09-08-2016 Follow Up Appt 6 months Claudia Toscano Start: 08-03-2016 End: 08-31-2016 Left & Right Heart Cath Claudia Toscano Start: 08-03-2016 End: 09-08-2016 MMClaudia Olguin MD Start: 07-02-2016 End: 08-09-2016 *BMP Reggie Olguin MD Start: 07-02-2016 End: 08-31-2016 CBC W Auto Differential panel - Blood Rgegie Olguin MD Start: 07-02-2016 End: 08-31-2016 Chest x-ray Reggie Olguin MD Start: 07-02-2016 End: 08-31-2016 Follow Up Appt 6 months Claudia Toscano Start: 07-02-2016 End: 08-31-2016 Left Heart Cath Reggie Olguin MD Start: 07-02-2016 End: 08-31-2016 MMClaudia Olguin MD Start: 07-02-2016 End: 07-02-2016 Dietary management education, guidance, and counseling Noni Lebron Work Phone: Start: 07-02-2016 End: 07-02-2016 Documentation of current medications Noni Lebron Work Phone: Start: 07-02-2016 End: 08-09-2016 Basic metabolic 2000 panel - Serum or Plasma Reggie Olguin MD Start: 07-02-2016 End: 08-31-2016 CBC W Auto Differential panel - Blood Reggie Olguin MD Start: 07-02-2016 End: 08-31-2016 Chest x-ray Reggie Olguin MD Start: 07-02-2016 End: 08-31-2016 Follow Up Appt 6 months Claudia Toscano Start: 07-02-2016 End: 08-31-2016 Left Heart Cath Reggie Olguin MD Start: 07-02-2016 End: 08-31-2016 MMM Reggie Olguin MD Start: 04-12-2016 End: 04-23-2016 *BMP Dana Blake PA-C Work Phone: Start: 04-12-2016 End: 04-23-2016 Basic metabolic 2000 panel - Serum or Plasma Dana Blake PA-C Work Phone: Start: 03-29-2016 End: 03-29-2016 RON Blake PA-C Work Phone: Start: 03-29-2016 End: 03-29-2016 Follow Up Appt 3 months Dana Blake PA-C Work Phone: Start: 03-29-2016 End: 03-29-2016 Natriuretic peptide B [Mass/volume] in Blood Dana Blake PA-C Work Phone: Start: 03-29-2016 End: 03-29-2016 RON Blake PA-C Work Phone: Start: 03-29-2016 End: 03-29-2016 Follow Up Appt 3 months Dana Blake PA-C Work Phone: Start: 03-29-2016 End: 03-29-2016 Natriuretic peptide B [Mass/volume] in Blood Dana Blake PA-C Work Phone: Start: 01-05-2016 End: 01-05-2016 Echocardiography Bob Cervantes [employer]IE[employer]-C Start: 01-05-2016 End: 01-05-2016 Echocardiography Bob Quintana Cervantes [employer]-C Start: 12-16-2015 End: 12-17-2015 *CBC with Differential Bob Quintana Cervantes [employer] CHIEF- C Start: 12-16-2015 End: 12-16-2015 Ecg routine ecg w/least 12 lds w/i&r Bob Quintana Cervantes [employer] CHIEF-C Start: 12-16-2015 End: 12-16-2015 Follow Up Appt 3 months Bob Quintana Cervantes [employer] CHIEF -C Start: 12-16-2015 End: 12-16-2015 MMM Bob Quintana Cervantes [employer]-C Start: 12-16-2015 End: 01-12-2016 Nuclear stress test -exercise Bob Quintana Yod er [employer]IEF-C Start: 12-16-2015 End: 12-17-2015 CBC W Auto Differential panel - Blood Bob Quintana Cervantes [employer] CHIEF-C Start: 12-16-2015 End: 12-16-2015 Ecg routine ecg w/least 12 lds w/i&r Bob Quintana Cervantes [employer] CH[employer]F-C Start: 12-16-2015 End: 12-16-2015 Follow Up Appt 3 months Bob Quintana Cervantes [employer] CHIEF -C Start: 12-16-2015 End: 12-16-2015 MMM Bob Quintana Cervantes [employer] CHIEF-C Start: 12-16-2015 End: 01-12-2016 Nuclear stress test -exercise Bob Straussd er [employer] CH[employer]-C Start: 06-13-2015 End: 06-13-2015 Follow Up Appt 6 months Claudia Toscano Start: 06-13-2015 End: 06-13-2015 EHSAN Olguin MD Start: 06-13-2015 End: 06-13-2015 Follow Up Appt 6 months Claudia Toscano Start: 06-13-2015 End: 06-13-2015 EHSAN Olguin MD Start: 12-17-2014 End: 12-17-2014 SHAW CooleyC Work Phone: Start: 12-17-2014 End: 12-18-2014 Documentation of current medications Dnaa Blake PA-C Work Phone: Start: 12-17-2014 End: 12-17-2014 Follow Up Appt 6 months Dana Blake PA-C Work Phone: Start: 12-17-2014 End: 12-17-2014 SAND WHEELER Dana Blake PA-C Work Phone: Start: 12-17-2014 End: 12-18-2014 Documentation of current medications Dana Blake PA-C Work Phone: Start: 12-17-2014 End: 12-17-2014 Follow Up Appt 6 months Dana Blake PA-C Work Phone: Start: 06-07-2014 End: 06-08-2014 Documentation of current medications Reggie Olguin MD Start: 06-07-2014 End: 12-11-2014 Follow Up Appt 6 months Claudia Toscano Start: 06-07-2014 End: 12-11-2014 EHSAN Olguin MD Start: 06-07-2014 End: 06-08-2014 Documentation of current medications Reggie Olguin MD Start: 06-07-2014 End: 12-11-2014 Follow Up Appt 6 months Claudia Toscano Start: 06-07-2014 End: 12-11-2014 EHSAN Olguin MD Start: 10-24-2013 End: 10-24-2013 RON Blake PA-C Work Phone: Start: 10-24-2013 End: 10-29-2013 Echocardiography Dana Blake PA-C Work Phone: Start: 10-24-2013 End: 10-24-2013 Follow Up Appt 6 months Dana Blake PA-C Work Phone: Start: 10-24-2013 End: 10-24-2013 SAND WHEELER Dana Blake PA-C Work Phone: Start: 10-24-2013 End: 10-29-2013 Echocardiography Dana Blake PA-C Work Phone: Start: 10-24-2013 End: 10-24-2013 Follow Up Appt 6 months Dana Blake PA-C Work Phone: Start: 04-12-2013 End: 04-12-2013 Follow Up Appt 6 months Claudia Toscano Start: 04-12-2013 End: 04-12-2013 EHSAN Olguin MD Start: 04-12-2013 End: 04-12-2013 Follow Up Appt 6 months Claduia Toscano Start: 04-12-2013 End: 04-12-2013 EHSAN Olguin MD Start: 10-04-2012 End: 09-26-2013 RON Blake PA-C Work Phone: Start: 10-04-2012 End: 09-26-2013 Ecg routine ecg w/least 12 lds w/i&r Dana Blake PA-C Work Phone: Start: 10-04-2012 End: 09-26-2013 Follow Up Appt 6 months Dana Blake PA-C Work Phone: Start: 10-04-2012 End: 09-26-2013 Nuclear stress test -exercise Dana Blake PA-C Work Phone: Start: 10-04-2012 End: 09-26-2013 RON Blake PA-C Work Phone: Start: 10-04-2012 End: 09-26-2013 Ecg routine ecg w/least 12 lds w/i&r Dana Blake PA-C Work Phone: Start: 10-04-2012 End: 09-26-2013 Follow Up Appt 6 months Dana Blake PA-C Work Phone: Start: 10-04-2012 End: 09-26-2013 Nuclear stress test -exercise Dana Blake PA-C Work Phone: Start: 03-21-2012 End: 03-21-2012 Follow Up Appt 6 months Claudia Toscano Start: 03-21-2012 End: 03-21-2012 Follow Up Appt 6 months Claudia Toscano Start: 09-07-2011 End: 09-07-2011 Follow Up Appt 6 months Claudia Toscano Start: 09-07-2011 End: 09-07-2011 Follow Up Appt 6 months Claudia Toscano Start: 03-10-2011 End: 09-07-2011 Follow Up Appt 6 months Claudia Toscano Start: 03-10-2011 End: 09-07-2011 Follow Up Appt 6 months Claudia Toscano Plan of Treatment Date Care Activity Detail Author Start: 06-07-2026 Diabetes Screening Diabetes Screening [facility] Start: 10-18-2025 DIABETES SCREEN DIABETES SCREEN [facility] Start: 10-18-2025 Diabetes Screening Diabetes Screening [facility] Start: 06-21-2025 DIABETES SCREEN DIABETES SCREEN [facility] Start: 06-20-2025 Hepatitis B screening Urine Albumin:Creatinine Ratio [facility] Start: 06-20-2025 Hepatitis B surface antibody level LDL Cholesterol [facility] Start: 04-06-2025 Glaucoma screening Dilated Retinal Exam [facility] Start: 03-06-2025 End: 03-06-2025 Patient encounter procedure 03/06/2025 9:00 AM EST Office Visit [facility] [place] [address] [facility] [place] [address] Pam Mcgill MD [address] [facility] [place] [address] 4 month follow up [facility] [place] Comment on above: 4 month follow up Start: 02-23-2025 Covid-19 Vaccine ( season) Covid-19 Vaccine ( season) [facility] Comment on above: Postponed from 11/06/2023 (Declined at t his time) Start: 02-19-2025 Hepatitis B screening Urine Albumin:Creatinine Ratio [facility] Start: 02-19-2025 Hepatitis B surface antibody level LDL Cholesterol [facility] Start: 01-26-2025 DIABETES SCREEN DIABETES SCREEN [facility] Start: 12-20-2024 Hemoglobin A1c measurement HbA1C [facility] Start: 11-05-2024 Influenza vaccination Influenza Vaccine (Season Ended) [facility] Start: 10-31-2024 End: 10-31-2024 Patient encounter procedure 10/31/2024 8:40 AM EDT Office Visit Internal [facility] [address] [place] [address] Pam Mcgill MD [address] [facility] [place] [address] 4 month follow up [facility] Comment on above: 4 month follow up Start: 09-05-2024 Hepatic function panel [facility] Start: 09-05-2024 Serum inorganic phosphate measurement [facility] Start: 09-05-2024 Verification routine [facility] Start: 09-05-2024 Hospital admission, emergency, from emergency room, medical nature [facility] Start: 09-05-2024 Admission procedure [facility] Start: 09-05-2024 [facility] Start: 09-05-2024 End: 09-05-2024 Patient encounter procedure 09/05/2024 3:00 PM EDT Office Visit Pulmonary Medicine [address] [place] [address] Susana Enciso APRN.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 [address] [place] [address] 6 wk f/u-RTC Pulmonary Medicine Comment on above: 6 wk f/u-RTC Start: 09-03-2024 [facility] Comment on above: Postponed from 11/06/2023 (Declined at t his time) Start: 08-23-2024 End: 08-23-2024 Patient encounter procedure 08/23/2024 1:40 PM EDT Office Visit [facility] Medicine [place] [address] [place] [address] Haily Alvarez APRN.DIRECTOR OF BUSINESS OPERATIONS [address] [place] [address] follow up [facility] Comment on above: follow up Start: 08-20-2024 Hemoglobin A1c measurement HbA1C [facility] Start: 08-03-2024 Patient discharge [facility] Start: 08-02-2024 Inhalation therapy procedure [facility] Start: 08-01-2024 Following clinical pathway protocol [facility] Start: 08-01-2024 Ambulation without limitation [facility] Start: 08-01-2024 Assessment of risk of venous thromboembolism [facility] Start: 08-01-2024 Catheterization of vein [facility] Start: 08-01-2024 Elevation of affected extremity [facility] Start: 08-01-2024 Insertion of catheter into peripheral vein [facility] Start: 08-01-2024 Measuring intake and output [facility] Start: 08-01-2024 Notification of physician [facility] Start: 08-01-2024 Oxygen therapy [facility] Start: 08-01-2024 Patient education [facility] Start: 08-01-2024 Providing care according to standard [facility] Start: 08-01-2024 [facility] Start: 08-01-2024 Verification routine [facility] Start: 08-01-2024 Hospital admission, emergency, from emergency room, medical nature [facility] Start: 08-01-2024 Admission procedure [facility] Start: 08-01-2024 [facility] Start: 07-27-2024 End: 07-27-2024 Patient encounter procedure 07/27/2024 10:00 AM EDT Office Visit [facility] Medicine [place] [address] [place] [address] Haily Alvarez APRN.DIRECTOR OF [employer]PERATIONS [address] [place] [address] follow up [facility] Comment on above: follow up Start: 07-19-2024 End: 10-18-2024 Fibrin D-dimer FEU [Mass/volume] in Platelet poor plasma [facility] Comment on above: Expected: 07/19/2024, Expires: Start: 07-19-2024 End: 10-18-2024 Natriuretic peptide.B prohormone N-Terminal [Mass/volume] in Serum or Plasma [facility] Work Phone: Comment on above: Expected: 07/19/2024, Expires: Start: 07-10-2024 DIABETES SCREEN DIABETES SCREEN [facility] Start: 07-01-2024 End: 06-30-2025 XR Chest PA and Lateral XR CHEST 2V FRONTAL/LAT Radiology Routine Pneumonia of both lower lobes due to infectious organism Expected: 07/01/2024 (Approximate), Expires: 06/30/2025 [facility] Work Phone: Comment on above: Expected: 07/01/2024 (Approximate), Expi res: 06/30/2025 Start: 06-20-2024 End: 06-20-2024 ambulatory [facility] Comment on above: Labs DONALD (dyspnea on exer tion) [R06.09]; Mild intermittent asthma without complication (HCC) [J45.20] Start: 06-18-2024 End: 06-18-2024 Patient encounter procedure 06/18/2024 9:00 AM EDT Office Visit Internal Medicine [place] [address] [place] [address] Pam Mcgill MD [address] [place], [place] [id number] 4 month follow up [facility] Comment on above: 4 month follow up Start: 06-09-2024 Annual PCP Team Chronic Disease Visit Annual PCP Team Chronic Disease Visit [facility] Start: 06-09-2024 BP Controlled (<130/80) BP Controlled (<130/80) [facility] Start: 06-05-2024 End: 09-04-2024 25-hydroxyvitamin D3 [Mass/volume] in Serum or Plasma VITAMIN D 25 HYDROXY Lab Routine Vitamin D deficiency Expected: 06/05/2024 (Approximate), Expires: 09/04/2024 [facility] Comment on above: Expected: 06/05/2024 (Approximate), Expi res: 09/04/2024 Start: 06-05-2024 End: 09-04-2024 CBC panel - Blood by Automated count COMPLETE BLOOD COUNT Lab Routine Controlled type 2 diabetes mellitus without complication, without long-term current use of insulin (HCC) Expected: 06/05/2024 (Approximate), Expires: 09/04/2024 [facility] Comment on above: Expected: 06/05/2024 (Approximate), Expi res: 09/04/2024 Start: 06-05-2024 End: 09-04-2024 Comprehensive metabolic 2000 panel - Serum or Plasma COMPREHENSIVE METABOLIC PANEL Lab Routine Controlled type 2 diabetes mellitus without complication, without long-term current use of insulin (HCC) Expected: 06/05/2024 (Approximate), Expires: 09/04/2024 [facility] Comment on above: Expected: 06/05/2024 (Approximate), Expi res: 09/04/2024 Start: 06-05-2024 End: 09-04-2024 Hemoglobin A1c in Blood HEMOGLOBIN A1C Lab Routine Controlled type 2 diabetes mellitus without complication, without long-term current use of insulin (HCC) Expected: 06/05/2024 (Approximate), Expires: 09/04/2024 [facility] Work Phone: Comment on above: Expected: 06/05/2024 (Approximate), Expi res: 09/04/2024 Start: 06-05-2024 End: 09-04-2024 Lipid 1996 panel - Serum or Plasma LIPID PANEL BASIC Lab Routine Controlled type 2 diabetes mellitus without complication, without long-term current use of insulin (HCC) Expected: 06/05/2024 (Approximate), Expires: 09/04/2024 [facility] Comment on above: Expected: 06/05/2024 (Approximate), Expi res: 09/04/2024 Start: 06-05-2024 End: 09-04-2024 Microalbumin/Creatinine [Mass Ratio] in Urine ALBUMIN/CREATININE RATIO, URINE Lab Routine Controlled type 2 diabetes mellitus without complication, without long-term current use of insulin (HCC) Expected: 06/05/2024 (Approximate), Expires: 09/04/2024 [facility] Comment on above: Expected: 06/05/2024 (Approximate), Expi res: 09/04/2024 Start: 05-31-2024 End: 05-31-2024 Patient encounter procedure 05/31/2024 3:00 PM EDT Office Visit [facility] [address] [place] [address] Pam Mcgill MD [address] [place] [address] f/u shortness of breath [facility] Comment on above: f/u shortness of breath Start: 04-11-2024 Hemoglobin A1c measurement HbA1C [facility] Start: 03-07-2024 Advance Directive Discussion Advance Directive Discussion [facility] Start: 02-24-2024 End: 02-24-2024 Patient encounter procedure 02/24/2024 9:00 AM EST Office Visit [facility] [address] [place] [address] Pam Mcgill MD [address] [place] [address] 4 month follow up [facility] Comment on above: 4 month follow up Start: 02-22-2024 Covid-19 Vaccine () Covid-19 Vaccine () [facility] Comment on above: Postponed from 11/05/2022 (Declined at t his time) Start: 02-11-2024 Hepatitis B surface antibody level LDL Cholesterol [facility] Start: 02-05-2024 Glaucoma screening Dilated Retinal Exam [facility] Start: 01-18-2024 End: 04-18-2024 25-hydroxyvitamin D3 [Mass/volume] in Serum or Plasma VITAMIN D 25 HYDROXY Lab Routine Osteopenia of spine S/P subtotal parathyroidectomy Expected: 01/18/2024 (Approximate), Expires: 04/18/2024 [facility] Comment on above: Expected: 01/18/2024 (Approximate), Expi res: 04/18/2024 Start: 01-18-2024 End: 04-18-2024 Comprehensive metabolic 2000 panel - Serum or Plasma COMPREHENSIVE METABOLIC PANEL Lab Routine Controlled type 2 diabetes mellitus without complication, without long-term current use of insulin (HCC) Osteopenia of spine Expected: 01/18/2024 (Approximate), Expires: 04/18/2024 [facility] Comment on above: Expected: 01/18/2024 (Approximate), Expi res: 04/18/2024 Start: 01-18-2024 End: 04-18-2024 Hemoglobin A1c in Blood HEMOGLOBIN A1C Lab Routine Controlled type 2 diabetes mellitus without complication, without long-term current use of insulin (HCC) Expected: 01/18/2024 (Approximate), Expires: 04/18/2024 [facility] Work Phone: Comment on above: Expected: 01/18/2024 (Approximate), Expi res: 04/18/2024 Start: 01-18-2024 End: 04-18-2024 Lipid 1996 panel - Serum or Plasma LIPID PANEL BASIC Lab Routine Controlled type 2 diabetes mellitus without complication, without long-term current use of insulin (HCC) Expected: 01/18/2024 (Approximate), Expires: 04/18/2024 [facility] Comment on above: Expected: 01/18/2024 (Approximate), Expi res: 04/18/2024 Start: 01-18-2024 End: 04-18-2024 Microalbumin/Creatinine [Mass Ratio] in Urine ALBUMIN/CREATININE RATIO, URINE Lab Routine Controlled type 2 diabetes mellitus without complication, without long-term current use of insulin (HCC) Expected: 01/18/2024 (Approximate), Expires: 04/18/2024 [facility] Comment on above: Expected: 01/18/2024 (Approximate), Expi res: 04/18/2024 Start: 12-05-2023 End: 12-05-2023 Patient encounter procedure 12/05/2023 2:15 PM EDT Appointment Radiology [address] [place] [id number] Asymptomatic postmenopausal status [Z78.0]; Osteopenia of spine [M85.88]; Vitamin D deficiency [E55.9]; 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 0]; Osteopenia of spine [M85.88]; Vitamin D deficiency [E55.9]; S/P subtotal parathyroidectomy [Z98.890, Z90.89] Start: 11-06-2023 Covid-19 Vaccine ( season) Covid-19 Vaccine () [facility] Start: 11-06-2023 Influenza vaccination Influenza Vaccine (#1) [facility] Start: 10-21-2023 ANNUAL PCP TEAM CHRONIC DISEASE VISIT ANNUAL PCP TEAM CHRONIC DISEASE VISIT [facility] Start: 10-21-2023 BP CONTROLLED (<130/80) BP CONTROLLED (<130/80) [facility] Start: 10-21-2023 SHINGRIX VACCINE (1 of 2) SHINGRIX VACCINE (1 of 2) [facility] Comment on above: Postponed from 1992 (Declined at t his time) Start: 10-21-2023 Urine microalbumin profile [facility] Comment on above: Postponed from 12/18/2014 (Declined at t his time) Start: 10-19-2023 HEMOGLOBIN/HEMATOCRIT HEMOGLOBIN/HEMATOCRIT [facility] Start: 10-19-2023 Hepatitis B surface antibody level LDL CHOLESTEROL [facility] Start: 10-19-2023 SERUM CREATININE SERUM CREATININE [facility] Start: 10-18-2023 End: 10-18-2023 Patient encounter procedure 10/18/2023 8:20 AM EDT Office Visit [facility] Medicine [place] [address] [place] [address] Pam Mcgill MD [address] [facility] [place] [address] 4 month follow up [facility] Comment on above: 4 month follow up Start: 10-10-2023 End: 01-09-2024 25-hydroxyvitamin D3 [Mass/volume] in Serum or Plasma VITAMIN D 25 HYDROXY Lab Routine Vitamin D deficiency S/P subtotal parathyroidectomy Hypercalcemia Expected: 10/10/2023 (Approximate), Expires: 01/09/2024 [facility] Comment on above: Expected: 10/10/2023 (Approximate), Expi res: 01/09/2024 Start: 10-10-2023 End: 01-09-2024 Comprehensive metabolic 2000 panel - Serum or Plasma COMP METABOLIC PANEL Lab Routine Controlled type 2 diabetes mellitus without complication, without long-term current use of insulin (HCC) Expected: 10/10/2023 (Approximate), Expires: 01/09/2024 [facility] Comment on above: Expected: 10/10/2023 (Approximate), Expi res: 01/09/2024 Start: 10-10-2023 End: 01-09-2024 Hemoglobin A1c in Blood HGB A1C Lab Routine Controlled type 2 diabetes mellitus without complication, without long-term current use of insulin (HCC) Expected: 10/10/2023 (Approximate), Expires: 01/09/2024 [facility] Work Phone: Comment on above: Expected: 10/10/2023 (Approximate), Expi res: 01/09/2024 Start: 10-10-2023 End: 01-09-2024 Parathyrin.intact [Mass/volume] in Serum or Plasma PTH INTACT BLD Lab Routine S/P subtotal parathyroidectomy Hypercalcemia Expected: 10/10/2023 (Approximate), Expires: 01/09/2024 [facility] Comment on above: Expected: 10/10/2023 (Approximate), Expi res: 01/09/2024 Start: 06-22-2023 ANNUAL PCP TEAM CHRONIC DISEASE VISIT ANNUAL PCP TEAM CHRONIC DISEASE VISIT [facility] Start: 03-19-2023 BP CONTROLLED (<130/80) BP CONTROLLED (<130/80) [facility] Start: 03-19-2023 COVID-19 VACCINE (4 - Booster for Moderna series) COVID-19 VACCINE (4 - Booster for Moderna series) [facility] Comment on above: Postponed from 05/15/2021 (Declined at t his time) Start: 03-19-2023 COVID-19 VACCINE (4 - Moderna series) COVID-19 VACCINE (4 - Moderna series) [facility] Comment on above: Postponed from 05/15/2021 (Declined at t his time) Start: 03-07-2023 Advance Directive Discussion Advance Directive Discussion [facility] Start: 01-26-2023 Hepatitis B surface antibody level LDL CHOLESTEROL [facility] Start: 01-26-2023 SERUM CREATININE SERUM CREATININE [facility] Start: 11-11-2022 ANNUAL PCP TEAM CHRONIC DISEASE VISIT ANNUAL PCP TEAM CHRONIC DISEASE VISIT [facility] Start: 11-05-2022 Covid-19 Vaccine ( season) Covid-19 Vaccine ( season) [facility] Start: 11-05-2022 Influenza vaccination [facility] Start: 10-21-2022 End: 12-21-2022 25-hydroxyvitamin D3 [Mass/volume] in Serum or Plasma VITAMIN D 25 HYDROXY Lab Routine Vitamin D deficiency Expected: 10/21/2022 (Approximate), Expires: 12/21/2022 [facility] Work Phone: Comment on above: Expected: 10/21/2022 (Approximate), Expi res: 12/21/2022 Start: 09-03-2022 End: 03-07-2023 CBC W Auto Differential panel - Blood CBC + DIFF Lab Routine Primary hypertension Expected: 09/03/2022 (Approximate), Expires: 03/07/2023 [facility] Work Phone: Comment on above: Expected: 09/03/2022 (Approximate), Expi res: 03/07/2023 Start: 09-03-2022 End: 03-07-2023 Comprehensive metabolic 2000 panel - Serum or Plasma COMP METABOLIC PANEL Lab Routine Mixed hyperlipidemia Primary hypertension Acquired hypothyroidism Expected: 09/03/2022 (Approximate), Expires: 03/07/2023 [facility] Work Phone: Comment on above: Expected: 09/03/2022 (Approximate), Expi res: 03/07/2023 Start: 09-03-2022 End: 03-07-2023 Hemoglobin A1c in Blood HGB A1C Lab Routine IFG (impaired fasting glucose) Expected: 09/03/2022 (Approximate), Expires: 03/07/2023 [facility] Work Phone: Comment on above: Expected: 09/03/2022 (Approximate), Expi res: 03/07/2023 Start: 09-03-2022 End: 03-07-2023 Lipid 1996 panel - Serum or Plasma LIPID PANEL BASIC Lab Routine Mixed hyperlipidemia Expected: 09/03/2022 (Approximate), Expires: 03/07/2023 [facility] Work Phone: Comment on above: Expected: 09/03/2022 (Approximate), Expi res: 03/07/2023 Start: 09-03-2022 End: 03-07-2023 Thyrotropin [Units/volume] in Serum or Plasma TSH BLD Lab Routine Acquired hypothyroidism Expected: 09/03/2022 (Approximate), Expires: 03/07/2023 [facility] Work Phone: Comment on above: Expected: 09/03/2022 (Approximate), Expi res: 03/07/2023 Start: 08-05-2022 Urine microalbumin profile DTAP,TDAP,TD (2 - Td or Tdap) [facility] Comment on above: Postponed from 12/18/2014 (Insurance Cov erage) Start: 07-17-2022 ANNUAL PCP TEAM CHRONIC DISEASE VISIT ANNUAL PCP TEAM CHRONIC DISEASE VISIT [facility] Start: 07-17-2022 BP CONTROLLED (<130/80) BP CONTROLLED (<130/80) [facility] Start: 07-17-2022 SHINGRIX VACCINE (1 of 2) SHINGRIX VACCINE (1 of 2) [facility] Comment on above: Postponed from 1992 (Declined at t his time) Start: 07-10-2022 HEMOGLOBIN/HEMATOCRIT HEMOGLOBIN/HEMATOCRIT [facility] Start: 07-10-2022 Hepatitis B surface antibody level LDL CHOLESTEROL [facility] Start: 07-10-2022 SERUM CREATININE SERUM CREATININE [facility] Start: 01-05-2022 End: 03-07-2022 25-hydroxyvitamin D3 [Mass/volume] in Serum or Plasma VITAMIN D 25 HYDROXY Lab Routine S/P subtotal parathyroidectomy (HCC) Expected: 01/05/2022 (Approximate), Expires: 03/07/2022 [facility] Work Phone: Comment on above: Expected: 01/05/2022 (Approximate), Expi res: 03/07/2022 Start: 01-05-2022 End: 03-07-2022 CBC panel - Blood by Automated count CBC Lab Routine Essential hypertension Encounter for long-term current use of medication Expected: 01/05/2022 (Approximate), Expires: 03/07/2022 [facility] Work Phone: Comment on above: Expected: 01/05/2022 (Approximate), Expi res: 03/07/2022 Start: 01-05-2022 End: 03-07-2022 Comprehensive metabolic 2000 panel - Serum or Plasma COMP METABOLIC PANEL Lab Routine Essential hypertension IFG (impaired fasting glucose) S/P subtotal parathyroidectomy (HCC) Encounter for long-term current use of medication Expected: 01/05/2022 (Approximate), Expires: 03/07/2022 [facility] Work Phone: Comment on above: Expected: 01/05/2022 (Approximate), Expi res: 03/07/2022 Start: 01-05-2022 End: 03-07-2022 Hemoglobin A1c in Blood HGB A1C Lab Routine IFG (impaired fasting glucose) Expected: 01/05/2022 (Approximate), Expires: 03/07/2022 [facility] Work Phone: Comment on above: Expected: 01/05/2022 (Approximate), Expi res: 03/07/2022 Start: 01-05-2022 End: 03-07-2022 Lipid 1996 panel - Serum or Plasma LIPID PANEL BASIC Lab Routine Mixed hyperlipidemia Expected: 01/05/2022 (Approximate), Expires: 03/07/2022 [facility] Work Phone: Comment on above: Expected: 01/05/2022 (Approximate), Expi res: 03/07/2022 Start: 01-05-2022 End: 03-07-2022 Thyrotropin [Units/volume] in Serum or Plasma TSH BLD Lab Routine Acquired hypothyroidism Expected: 01/05/2022 (Approximate), Expires: 03/07/2022 [facility] Work Phone: Comment on above: Expected: 01/05/2022 (Approximate), Expi res: 03/07/2022 Start: 01-05-2022 End: 03-07-2022 Thyroxine (T4) free [Mass/volume] in Serum or Plasma T4 FREE/FREE THYROX Lab Routine Acquired hypothyroidism Expected: 01/05/2022 (Approximate), Expires: 03/07/2022 [facility] Work Phone: Comment on above: Expected: 01/05/2022 (Approximate), Expi res: 03/07/2022 Start: 12-03-2021 Urine microalbumin profile DTAP,TDAP,TD (2 - Td or Tdap) [facility] Comment on above: Postponed from 12/18/2014 (Declined at t his time) Start: 11-05-2021 Influenza vaccination INFLUENZA (#1) [facility] Start: 07-18-2021 COVID-19 VACCINE (4 - Booster for Moderna series) COVID-19 VACCINE (4 - Booster for Moderna series) [facility] Start: 05-15-2021 COVID-19 VACCINE (4 - Booster for Moderna series) COVID-19 VACCINE (4 - Booster for Moderna series) [facility] Start: 07-04-2019 BP CONTROLLED (<130/80) BP CONTROLLED (<130/80) [facility] Start: 2017 RSV Vaccine (1 - 1-dose 75+ series) RSV Vaccine (1 - 1-dose 75+ series) [facility] Start: 05-13-2017 End: 05-13-2017 Patient encounter procedure Appointment [facility] Work Phone: Start: 02-15-2017 End: 02-15-2017 Appointment Appointment [facility] Work Phone: Start: 01-26-2017 End: 01-26-2017 Patient encounter procedure Appointment [facility] Work Phone: Start: 01-13-2017 End: 01-13-2017 Appointment Appointment [facility] Work Phone: Start: 01-13-2017 End: 01-17-2017 Cardiac Rehab Cardiac Rehab Rehab Cardiac Pulmonary, [address] [place], [address] [facility] Work Phone: Start: 01-13-2017 End: 01-13-2017 Follow Up Appt 4 months Follow Up Appt 4 months [facility] Work Phone: Start: 01-13-2017 End: 01-13-2017 MMM MMM [facility] Work Phone: Start: 11-26-2016 End: 11-26-2016 Patient encounter procedure Appointment [facility] Work Phone: Start: 09-09-2016 End: 09-09-2016 Thoracic Surgery Referral Thoracic Surgery Referral [address], [address] [facility] Work Phone: Start: 09-09-2016 End: 09-09-2016 Admission to same day surgery center Thoracic Surgery Referral [address], [address] [facility] Work Phone: Start: 08-26-2016 End: 08-26-2016 Patient encounter procedure Appointment [facility] Work Phone: Start: 08-26-2016 End: 09-08-2016 SAND WHEELER SAND WHEELER [facility] Work Phone: Start: 08-26-2016 End: 09-08-2016 Follow Up Appt 3 months Follow Up Appt 3 months [facility] Work Phone: Start: 08-26-2016 End: 08-31-2016 Transesophageal echocardiogram (CHRISTIAN) Transesophageal echocardiogram (CHRISTIAN) [facility] Work Phone: Start: 08-26-2016 End: 09-08-2016 S[employer] WHEELER S[employer] [facility] Work Phone: Start: 08-26-2016 End: 09-08-2016 Follow Up Appt 3 months Follow Up Appt 3 months [facility] Work Phone: Start: 08-26-2016 End: 08-31-2016 Transesophageal echocardiogram (CHRISTIAN) Transesophageal echocardiogram (CHRISTIAN) [facility] Work Phone: Start: 08-03-2016 End: 08-09-2016 *BMP *BMP [facility] Work Phone: Start: 08-03-2016 End: 08-03-2016 CBC W Auto Differential panel - Blood *CBC without Diff [facility] Work Phone: Start: 08-03-2016 End: 08-09-2016 Chest x-ray X-Ray, Chest, PA & Lateral [facility] Work Phone: Start: 08-03-2016 End: 08-31-2016 Ecg routine ecg w/least 12 lds w/i&r EKG (In office) [facility] Work Phone: Start: 08-03-2016 End: 09-08-2016 Follow Up Appt 6 months Follow Up Appt 6 months [facility] Work Phone: Start: 08-03-2016 End: 08-31-2016 Left & Right Heart Cath Left & Right Heart Cath [facility] Work Phone: Start: 08-03-2016 End: 09-08-2016 MMM MMM [facility] Work Phone: Start: 08-03-2016 End: 08-03-2016 Patient encounter procedure Appointment [facility] Work Phone: Start: 08-03-2016 End: 08-09-2016 Basic metabolic 2000 panel - Serum or Plasma *BMP [facility] Work Phone: Start: 08-03-2016 End: 08-03-2016 CBC W Auto Differential panel - Blood *CBC without Diff [facility] Work Phone: Start: 08-03-2016 End: 08-09-2016 Chest x-ray X-Ray, Chest, PA & Lateral [facility] Work Phone: Start: 08-03-2016 End: 08-31-2016 Ecg routine ecg w/least 12 lds w/i&r EKG (In office) [facility] Work Phone: Start: 08-03-2016 End: 09-08-2016 Follow Up Appt 6 months Follow Up Appt 6 months [facility] Work Phone: Start: 08-03-2016 End: 08-31-2016 Left & Right Heart Cath Left & Right Heart Cath [facility] Work Phone: Start: 08-03-2016 End: 09-08-2016 MMM MMM [facility] Work Phone: Start: 07-02-2016 End: 08-09-2016 *BMP *BMP [facility] Work Phone: Start: 07-02-2016 End: 08-31-2016 CBC W Auto Differential panel - Blood *CBC without Diff [facility] Work Phone: Start: 07-02-2016 End: 08-31-2016 Chest x-ray X-Ray, Chest, PA & Lateral [facility] Work Phone: Start: 07-02-2016 End: 08-31-2016 Follow Up Appt 6 months Follow Up Appt 6 months [facility] Work Phone: Start: 07-02-2016 End: 07-02-2016 Left Heart Cath Left Heart Cath [facility] Work Phone: Start: 07-02-2016 End: 08-31-2016 MMM MMM [facility] Work Phone: Start: 07-02-2016 End: 08-09-2016 Basic metabolic 2000 panel - Serum or Plasma *BMP [facility] Work Phone: Start: 07-02-2016 End: 08-31-2016 CBC W Auto Differential panel - Blood *CBC without Diff [facility] Work Phone: Start: 07-02-2016 End: 08-31-2016 Chest x-ray X-Ray, Chest, PA & Lateral [facility] Work Phone: Start: 07-02-2016 End: 08-31-2016 Follow Up Appt 6 months Follow Up Appt 6 months [facility] Work Phone: Start: 07-02-2016 End: 07-02-2016 Left Heart Cath Left Heart Cath [facility] Work Phone: Start: 07-02-2016 End: 08-31-2016 MMM MMM [facility] Work Phone: Start: 04-12-2016 End: 04-23-2016 *BMP *BMP [facility] Work Phone: Start: 04-12-2016 End: 04-23-2016 Basic metabolic 2000 panel - Serum or Plasma *BMP [facility] Work Phone: Start: 03-29-2016 End: 03-29-2016 BNP *Brain Natriuretic Peptide BNP [facility] Work Phone: Start: 03-29-2016 End: 03-29-2016 SAND WHEELER SAND WHEELER [facility] Work Phone: Start: 03-29-2016 End: 03-29-2016 Follow Up Appt 3 months Follow Up Appt 3 months [facility] Work Phone: Start: 03-29-2016 End: 03-29-2016 SAND WHEELER SAND WHEELER [facility] Work Phone: Start: 03-29-2016 End: 03-29-2016 Follow Up Appt 3 months Follow Up Appt 3 months [facility] Work Phone: Start: 03-29-2016 End: 03-29-2016 Natriuretic peptide B [Mass/volume] in Blood *Brain Natriuretic Peptide BNP [facility] Work Phone: Start: 12-16-2015 End: 12-17-2015 *CBC with Differential *CBC with Differential [facility] Work Phone: Start: 12-16-2015 End: 12-16-2015 Ecg routine ecg w/least 12 lds w/i&r EKG (In office) [facility] Work Phone: Start: 12-16-2015 End: 12-16-2015 Echocardiography Echocardiogram (complete) [facility] Work Phone: Start: 12-16-2015 End: 12-16-2015 Follow Up Appt 3 months Follow Up Appt 3 months [facility] Work Phone: Start: 12-16-2015 End: 12-16-2015 MMM MMM [facility] Work Phone: Start: 12-16-2015 End: 12-16-2015 Nuclear stress test -exercise Nuclear stress test -exercise [facility] Work Phone: Start: 12-16-2015 End: 12-17-2015 CBC W Auto Differential panel - Blood *CBC with Differential [facility] Work Phone: Start: 12-16-2015 End: 12-16-2015 Ecg routine ecg w/least 12 lds w/i&r EKG (In office) [facility] Work Phone: Start: 12-16-2015 End: 12-16-2015 Echocardiography Echocardiogram (complete) [facility] Work Phone: Start: 12-16-2015 End: 12-16-2015 Follow Up Appt 3 months Follow Up Appt 3 months [facility] Work Phone: Start: 12-16-2015 End: 12-16-2015 MMM MMM [facility] Work Phone: Start: 12-16-2015 End: 12-16-2015 Nuclear stress test -exercise Nuclear stress test -exercise [facility] Work Phone: Start: 06-13-2015 End: 06-13-2015 Follow Up Appt 6 months Follow Up Appt 6 months [facility] Work Phone: Start: 06-13-2015 End: 06-13-2015 MMM MMM [facility] Work Phone: Start: 06-13-2015 End: 06-13-2015 Follow Up Appt 6 months Follow Up Appt 6 months [facility] Work Phone: Start: 06-13-2015 End: 06-13-2015 MMM MMM [facility] Work Phone: Start: 12-18-2014 Urine microalbumin profile [facility] Start: 12-17-2014 End: 12-17-2014 SAND WHEELER SAND WHEELER [facility] Work Phone: Start: 12-17-2014 End: 12-17-2014 Follow Up Appt 6 months Follow Up Appt 6 months [facility] Work Phone: Start: 12-17-2014 End: 12-17-2014 SAND WHEELER SAND WHEELER [facility] Work Phone: Start: 12-17-2014 End: 12-17-2014 Follow Up Appt 6 months Follow Up Appt 6 months [facility] Work Phone: Start: 06-07-2014 End: 12-11-2014 Follow Up Appt 6 months Follow Up Appt 6 months [facility] Work Phone: Start: 06-07-2014 End: 12-11-2014 MMM MMM [facility] Work Phone: Start: 06-07-2014 End: 12-11-2014 Follow Up Appt 6 months Follow Up Appt 6 months [facility] Work Phone: Start: 06-07-2014 End: 12-11-2014 MMM MMM [facility] Work Phone: Start: 10-24-2013 End: 10-24-2013 SAND WHEELER SAND WHEELER [facility] Work Phone: Start: 10-24-2013 End: 10-24-2013 Echocardiography Echocardiogram (complete) [facility] Work Phone: Start: 10-24-2013 End: 10-24-2013 Follow Up Appt 6 months Follow Up Appt 6 months [facility] Work Phone: Start: 10-24-2013 End: 10-24-2013 SAND WHEELER SAND WHEELER [facility] Work Phone: Start: 10-24-2013 End: 10-24-2013 Echocardiography Echocardiogram (complete) [facility] Work Phone: Start: 10-24-2013 End: 10-24-2013 Follow Up Appt 6 months Follow Up Appt 6 months [facility] Work Phone: Start: 04-12-2013 End: 04-12-2013 Follow Up Appt 6 months Follow Up Appt 6 months [facility] Work Phone: Start: 04-12-2013 End: 04-12-2013 MMM MMM [facility] Work Phone: Start: 04-12-2013 End: 04-12-2013 Follow Up Appt 6 months Follow Up Appt 6 months [facility] Work Phone: Start: 04-12-2013 End: 04-12-2013 MMM MMM [facility] Work Phone: Start: 10-04-2012 End: 09-26-2013 SAND WHEELER SAND WHEELER [facility] Work Phone: Start: 10-04-2012 End: 09-26-2013 Ecg routine ecg w/least 12 lds w/i&r EKG (In office) [facility] Work Phone: Start: 10-04-2012 End: 09-26-2013 Follow Up Appt 6 months Follow Up Appt 6 months [facility] Work Phone: Start: 10-04-2012 End: 10-05-2012 Nuclear stress test -exercise Nuclear stress test -exercise [facility] Work Phone: Start: 10-04-2012 End: 09-26-2013 SAND WHEELER SAND WHEELER [facility] Work Phone: Start: 10-04-2012 End: 09-26-2013 Ecg routine ecg w/least 12 lds w/i&r EKG (In office) [facility] Work Phone: Start: 10-04-2012 End: 09-26-2013 Follow Up Appt 6 months Follow Up Appt 6 months [facility] Work Phone: Start: 10-04-2012 End: 10-05-2012 Nuclear stress test -exercise Nuclear stress test -exercise [facility] Work Phone: Start: 03-21-2012 End: 03-21-2012 Follow Up Appt 6 months Follow Up Appt 6 months [facility] Work Phone: Start: 03-21-2012 End: 03-21-2012 Follow Up Appt 6 months Follow Up Appt 6 months [facility] Work Phone: Start: 09-07-2011 End: 09-07-2011 Follow Up Appt 6 months Follow Up Appt 6 months [facility] Work Phone: Start: 09-07-2011 End: 09-07-2011 Follow Up Appt 6 months Follow Up Appt 6 months [facility] Work Phone: Start: 03-10-2011 End: 09-07-2011 Follow Up Appt 6 months Follow Up Appt 6 months [facility] Work Phone: Start: 03-10-2011 End: 09-07-2011 Follow Up Appt 6 months Follow Up Appt 6 months [facility] Work Phone: Start: 05-09-2010 Hepatitis B screening Urine Albumin:Creatinine Ratio [facility] Start: 2002 RSV Vaccine (1 - 1-dose 60+ series) RSV Vaccine (1 - 1-dose 60+ series) [facility] Start: 1992 SHINGRIX VACCINE (1 of 2) SHINGRIX VACCINE (1 of 2) [facility] Start: 1952 Diabetic foot examination Diabetic Foot Exam [facility] Start: 1952 Glaucoma screening Dilated Retinal Exam [facility] Alanine aminotransfe rase [Enzymatic activity/volume] in Serum or Plasma [facility] Albumin [Mass/volume ] in Serum or Plasma [facility] Alkaline phosphatase [Enzymatic activity/volume] in Serum or Plasma [facility] Basic metabolic 2008 panel with ionized calcium - Serum or Plasma [facility] Basic metabolic 2008 panel with ionized calcium - Serum or Plasma [facility] End: 11-16-2024 BD DXA TRABECULAR BONE SCORE (TBS) BD DXA TRABECULAR BONE SCORE (TBS) Radiology Routine Asymptomatic postmenopausal status Osteopenia of spine Vitamin D deficiency S/P subtotal parathyroidectomy 1 Occurrences starting 10/18/2023 until 11/16/2024 [facility] Comment on above: 1 Occurrences starting 10/18/2023 until 11/16/2024 Bilirubin, total measurement [facility] Bilirubin.direct [Mass/volume] in Serum or Plasma [facility] End: 10-18-2022 Diagnostic mammography computer-aided detcj uni TAD DIAGNOSTIC RT Radiology Routine Abnormal mammogram 1 Occurrences starting 09/18/2021 until 10/18/2022 [facility] Work Phone: Comment on above: 1 Occurrences starting 09/18/2021 until 10/18/2022 End: 11-16-2024 DXA Skeletal system.axial Views for bone density DXA-AXIAL SKELETON Radiology Routine Asymptomatic postmenopausal status Osteopenia of spine Vitamin D deficiency S/P subtotal parathyroidectomy 1 Occurrences starting 10/18/2023 until 11/16/2024 [facility] Comment on above: 1 Occurrences starting 10/18/2023 until 11/16/2024 Lipid 1996 panel - S augustina or Plasma [facility] End: 07-19-2025 LUNG DIFFUSION CAPACITY (DLCO) LUNG DIFFUSION CAPACITY (DLCO) PFT Routine DONALD (dyspnea on exertion) Mild intermittent asthma without complication (HCC) 1 Occurrences starting 06/19/2024 until 07/19/2025 [facility] Comment on above: 1 Occurrences starting 06/19/2024 until 07/19/2025 End: 07-19-2025 LUNG VOLUMES LUNG VOLUMES PFT Routine DONALD (dyspnea on exertion) Mild intermittent asthma without complication (HCC) 1 Occurrences starting 06/19/2024 until 07/19/2025 [facility] Comment on above: 1 Occurrences starting 06/19/2024 until 07/19/2025 Magnesium measurement [facility] End: 01-23-2024 TAD DIAGNOSTIC RIGHT TAD DIAGNOSTIC RIGHT Radiology Routine Abnormal mammogram of right breast 1 Occurrences starting 12/24/2022 until 01/23/2024 [facility] Work Phone: Comment on above: 1 Occurrences starting 12/24/2022 until 01/23/2024 End: 11-26-2023 TAD SCREENING W MINA TAD SCREENING W MINA Radiology Routine Breast cancer screening by mammogram 1 Occurrences starting 10/27/2022 until 11/26/2023 [facility] Work Phone: Comment on above: 1 Occurrences starting 10/27/2022 until 11/26/2023 End: 08-08-2024 MG Breast - right Diagnostic for implant TAD DIAGNOSTIC RIGHT Radiology Routine Abnormal mammogram of right breast 1 Occurrences starting 07/10/2023 until 08/08/2024 [facility] Work Phone: Comment on above: 1 Occurrences starting 07/10/2023 until 08/08/2024 Patient referral [facility] Work Phone: End: 07-19-2025 SPIROMETRY - BASELINE AND POST DILATOR SPIROMETRY - BASELINE AND POST DILATOR PFT Routine DONALD (dyspnea on exertion) Mild intermittent asthma without complication (HCC) 1 Occurrences starting 06/19/2024 until 07/19/2025 [facility] Work Phone: Comment on above: 1 Occurrences starting 06/19/2024 until 07/19/2025 End: 07-17-2022 Thyrotropin [Units/volume] in Serum or Plasma TSH BLD Lab Routine Acquired hypothyroidism Every 2 months for 6 Occurrences starting 07/17/2021 until 07/17/2022 [facility] Work Phone: Comment on above: Every 2 months for 6 Occurrences startin g 07/17/2021 until 07/17/2022 End: 06-09-2024 Thyrotropin [Units/volume] in Serum or Plasma TSH BLD Lab Routine Acquired hypothyroidism Every 2 months for 30 Occurrences starting 06/10/2023 until 06/09/2024 [facility] Comment on above: Every 2 months for 30 Occurrences starti ng 06/10/2023 until 06/09/2024 End: 07-17-2022 Thyroxine (T4) free [Mass/volume] in Serum or Plasma T4 FREE/FREE THYROX Lab Routine Acquired hypothyroidism Every 2 months for 6 Occurrences starting 07/17/2021 until 07/17/2022 [facility] Work Phone: Comment on above: Every 2 months for 6 Occurrences startin g 07/17/2021 until 07/17/2022 End: 06-09-2024 Thyroxine (T4) free [Mass/volume] in Serum or Plasma T4 FREE/FREE THYROX Lab Routine Acquired hypothyroidism Every 2 months for 30 Occurrences starting 06/10/2023 until 06/09/2024 [facility] Comment on above: Every 2 months for 30 Occurrences starti ng 06/10/2023 until 06/09/2024 Total protein measurement [facility] End: 06-09-2024 Triiodothyronine (T3) Free [Mass/volume] in Serum or Plasma T3 FREE BLD Lab Routine Acquired hypothyroidism Every 2 months for 30 Occurrences starting 06/10/2023 until 06/09/2024 [facility] Comment on above: Every 2 months for 30 Occurrences starti ng 06/10/2023 until 06/09/2024 End: 01-23-2024 US BREAST LTD RIGHT US BREAST LTD RIGHT Radiology Routine Abnormal mammogram of right breast 1 Occurrences starting 12/24/2022 until 01/23/2024 [facility] Work Phone: Comment on above: 1 Occurrences starting 12/24/2022 until 01/23/2024 End: 10-18-2022 Us breast uni real time with image limited US BREAST LTD RT Radiology Routine Abnormal mammogram 1 Occurrences starting 09/18/2021 until 10/18/2022 [facility] Work Phone: Comment on above: 1 Occurrences starting 09/18/2021 until 10/18/2022 End: 08-18-2025 XR Chest PA and Lateral XR CHEST 2V FRONTAL/LAT Radiology Routine SOB (shortness of breath) 1 Occurrences starting 07/19/2024 until 08/18/2025 [facility] Comment on above: 1 Occurrences starting 07/19/2024 until 08/18/2025 XR Chest PA and Lateral XR CHEST 2V FRONTAL/LAT Radiology Routine SOB (shortness of breath) 07/19/2024 9:12 AM EDT [facility] Immunizations Immunization Date Immunization Notes Care Provider Fa soraida 01-11-2023 influenza (aIIV4) vaccine, age 65+ yr, quadrivalent, PF (FLUAD QUAD) Diagnostic [facility] 01-11-2023 influenza virus vaccine, unspecified formulation Pam Mcgill MD Work Phone: [facility] 12-31-2021 influenza (aIIV4) vaccine, age 65+ yr, quadrivalent, PF (FLUAD QUAD) 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: [facility] 12-31-2021 influenza virus vaccine, unspecified formulation Mammography Coordinator [facility] 03-20-2021 influenza (aIIV4) vaccine, age 65+ yr, quadrivalent, PF (FLUAD QUAD) [employer].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: [facility] 06-04-2020 COVID-19 vaccine, fu ll dose (MODERNA) Screen [facility] 05-07-2020 COVID-19 vaccine, fu ll dose (MODERNA) Screen [facility] 01-17-2015 influenza, high dose seasonal, preservative-free Screen [facility] 05-08-2014 pneumococcal conjuga te vaccine, 13 valent Screen [facility] 01-25-2013 influenza virus vaccine, unspecified formulation Screen [facility] 01-20-2012 influenza virus vaccine, unspecified formulation Screen [facility] 01-05-2011 influenza virus vaccine, unspecified formulation Screen [facility] 01-22-2010 influenza virus vaccine, unspecified formulation Screen [facility] 10-09-2009 pneumococcal polysaccharide vaccine, 23 valent Screen [facility] Work Phone: 01-19-2008 influenza virus vaccine, unspecified formulation Screen [facility] Work Phone: 12-29-2006 influenza virus vaccine, unspecified formulation Screen [facility] Work Phone: 12-28-2005 influenza virus vaccine, unspecified formulation Screen [facility] 01-12-2005 influenza virus vaccine, unspecified formulation Screen [facility] Work Phone: 12-18-2004 tetanus toxoid, redu jacinto diphtheria toxoid, and acellular pertussis vaccine, adsorbed Screen [facility] Work Phone: 05-05-2004 pneumococcal polysaccharide vaccine, 23 valent Screen [facility] Payers Date Payer Category Payer Self-pay [id number] 2017 Medicare MMO MEDICARE MMO MEDADVANTAGE PPO [id number] 2017-Present [phone] [address] [place] [address] PPO [id number] 2017 Medicare MMO MEDICARE MMO MEDADVANTAGE PPO [id number] 2017-Present [phone] [address] [place] [address] PPO [id number] 2017 Medicare (Managed Care) MMO SHARIFA DVANTAGE PPO [id number] 2016 Medicare [id number] 1940 Unknown [id number] 1940 Unknown [id number] 1940 Unknown [id number] Unknown [id number] .[id number] Unknown [id number] .[id number] Unknown [id number] .[id number] Unknown [id number] .[id number] Unknown [id number] Unknown [id number] Unknown [id number] .[id number] Unknown [id number] .[id number] Unknown [id number] .[id number] Unknown [id number] .[id number] Unknown [id number] .[id number] Unknown [id number] Unknown [id number] Social History Date Type Detail Facility Start: 08-03-2012 End: 09-05-2024 Tobacco smoking status NHIS Never smoked tobacco [facility] Work Phone: Start: 03-13-2021 End: 07-19-2024 Alcohol intake Current non-drinker of alcohol (finding) [facility] Start: 03-26-2019 End: 03-16-2022 History SDOH Alcohol Frequency 1 [facility] Start: 11-27-2019 End: 03-16-2022 History SDOH Social Connections Phone 2 [facility] Start: 11-27-2019 End: 03-16-2022 History SDOH Social Connections Get Together 4 [facility] Start: 03-26-2019 End: 03-16-2022 History SDOH Social Connections Scientologist 3 [facility] Start: 03-26-2019 End: 03-16-2022 History SDOH Physical Activity DPW 0 [facility] Start: 03-25-2019 Education 12 [facility] Start: 1940 Sex Assigned At Female [facility] Start: 07-07-2021 End: 11-11-2021 Exposure to SARS-CoV-2 (event) Not sure [facility] Start: 08-03-2012 Tobacco use and exposure Smokeless tobacco non-user [facility] Start: 03-16-2022 History SDOH Social Connections Phone 5 [facility] Start: 02-11-2022 End: 02-14-2023 Tobacco smoking status NHIS Unknown if ever smoked [facility] Start: 03-15-2022 End: 10-20-2022 History of Social function [facility] Start: 03-15-2022 End: 10-20-2022 Social connection and isolation panel [facility] Do you belong to any clubs or organizations such as buddhism groups, unions, fraternal or athletic groups, or school groups? Yes [facility] Are you now , , , , never or living with a partner? [facility] How often to you hav e a drink containing alcohol? Never [facility] How many standard dr inks containing alcohol do you have on a typical day? Patient does not drink [facility] Do you feel stress - tense, restless, nervous, or anxious, or unable to sleep at night because your mind is troubled all the time - these days [OSQ] Not at all [facility] (I/We) worried wheth er (my/our) food would run out before (I/we) got money to buy more. Never true [facility] In the past 12 month s, was there a time when you were not able to pay the mortgage or rent on time? No [facility] Start: 03-25-2019 Gender identity Identifies as female gender (finding) [facility] Start: 03-25-2019 Sexual orientation Heterosexual (finding) [facility] Start: 05-31-2024 Sex Female (finding) [facility] Do you feel stress - tense, restless, nervous, or anxious, or unable to sleep at night because your mind is troubled all the time - these days [OSQ] Only a little [facility] Goals Date Patient Goal Desired Activity /State Functional Status Date Assessment Result Facility 08-03-2024 Functional status Ambulates;Bath room Privilege [facility] Work Phone: 2014 Are you deaf, or do you have serious difficulty hearing No 2014 10:18 AM Vannesa Bolanos LPN No [facility] 2014 Are you blind, or do you have serious difficulty seeing, even when wearing glasses No 2014 10:18 AM Vannesa Bolanos LPN No [facility] 2014 Do you have serious difficulty walking or climbing stairs No 2014 10:18 AM Vannesa Bolanos LPN No [facility] 2014 Do you have difficul ty dressing or bathing No 2014 10:18 AM Vannesa Bolanos LPN No [facility] 2014 Because of a physica l, mental, or emotional condition, do you have difficulty doing errands alone such as visiting a physician's office or shopping No 2014 10:18 AM Vannesa Bolanos LPN No [facility] Mental Status Date Assessment Result Facility 09-05-2024 Cognitive function Level Of Cons ciousness Awake;Alert;Appropriate;Fol lows Commands [facility] Work Phone: 08-03-2024 Cognitive function Voice/Name [facility] Work Phone: 2014 Because of a physica l, mental, or emotional condition, do you have serious difficulty concentrating, remembering, or making decisions No 2014 10:18 AM Vannesa Bolanos LPN No [facility] Clinical Notes 10-30-2009 to 09-05-2024 Note Date & Type Note Facility 09-05-2024 Discharge summary [facility] 09-05-2024 Discharge summary Note Date/Time September 05, 2024 5:59pm [facility] Medical Records Department [address] [place] [address] Emergency Department Summary 09/05/24 MR#: [id number] Acct: [id number] Name: JARRED FAIR Rep #:[id number] : 1940 83 From: Ramin Berman MD PCP: Dr. Pam Mcgill MD Status:RE G ER Location: ED HPI History of Present Illness Chief Complaint: Syncope Detail of Chief Complaint: Syncope after using commode and low blood pressure atpulmonologist office Informant: patient and family Onset/Context/Timing Onset: Today (Noon and prior to arrival) Context: Sudden Onset Timing: Intermittent Quality: Lightheadedness after rising from commode and passing out Location: Home Current Severity: Gone Maximum Severity: Moderate Worsened by: After using commode Relieved by: Not applicable Associated Symptoms Associated Symptoms: Vision became black and passed out Narrative Narrative: Patient is an 83-year-old woman. She has history of atherosclerotic heart disease, nonrheumatic aortic valve stenosis, status post aortic valve replacement December 2016, essential hypertension and hyperlipidemia who presentsfrom the pulmonary office because of a low blood pressure reading of 105. Basedon most recent ER visit August 01 patient had elevated blood pressure readings withsystolics greater than 160. Patient complains of lightheaded with standing. She denies headache, visual, ocular auditory symptoms. She denies shortness of breath, chest pain or difficulty breathing. She denies black or maroon-colored stool. She denies bruising easily. She has on an aspirin a day, baby. The office note from pulmonary has not been entered into the computer yet. Patient was admitted in July. Admitting diagnosis was shortness of breath due to acute congestive heart failure with suspected preserved ejection fraction, hypoxia due to congestive heart failure, valvular heart disease, class III obesity with a BMI of 40.6, dyslipidemia, mild coronary artery disease, type 2 diabetes, obstructive sleep apnea and anemia. Patient states she was at home using the restroom around noon. When she stood up she became lightheaded and passed out. This was after she use the restroom. She had no chest pressure tightness heaviness. She denies shortness of breath. She denied black or maroon-colored stool. She did not note any blood in her stool either. She denied hematuria. She denies dyspnea with activity compared to baseline. Prior similar symptoms: Yes (Remote) Recent Illness/Hospitalization: Yes (Admitted for CHF end of July.) [facility] Medical History Hypokalemia Nonrheumatic aortic (valve) stenosis Atherosclerosis of coronary artery of [place] heart without angina pectoris Obesity 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rtery with unstable angina pectoris OPHELIA (obstructive sleep apnea) Essential hypertension Fatigue Family history of hypertension Exertional shortness of breath Exertional chest pain Dyspnea on exertion Dizziness and giddiness Hyperlipidemia Carotid bruit Diabetes mellitus Home Medications ?Medication ?Instructions ?Recorded ?Last Taken ?Type albuterol sulfate 90 mcg/actuation 1 puff inhalation Q 4H PRN PRN 08/06/16 Unknown History aerosol inhaler Asthma cholecalciferol (vitamin D3) 25 1,000 unit PO DAILY vi tamin 08/06/16 09/04/24 History mcg (1,000 unit) tablet montelukast 10 mg tablet 10 mg PO DAILY allergies 04/2309/04/24 History omega-3 fatty acids-fish oil 300 1 ea PO DAILY supplem ent 08/06/16 09/04/24 History mg-1,000 mg capsule vitamin A 2,400 mcg capsule 8,000 unit PO DAILY vitami n 08/06/16 09/04/24 History vitamin E mixed 1,000 unit capsule 1,000 unit PO DAILY vitamin 08/06/16 09/04/24 History aspirin 81 mg tablet,delayed 81 mg PO DAILY@0800 heart [facility] 02/11/22 09/05/24 Rx release #90 tabs zinc gluconate 50 mg tablet 50 mg PO DAILY supplement 02/11/22 09/04/24 History lisinopril 40 mg tablet 40 mg PO DAILY blood pressur e #90 01/26/24 09/05/24 Rx tabs ezetimibe 10 mg tablet (Zetia) 10 mg PO DAILY choleste rol #90 tabs 04/12/24 09/04/24 Rx cetirizine 10 mg tablet 10 mg PO QDAY PRN allergy sy mptoms 04/17/24 07/31/24 History magnesium 250 mg tablet 250 mg PO DAILY supplement 0 04/17/24 09/04/24 History rosuvastatin 5 mg tablet 5 mg PO DAILY cholesterol 07/30/24 History diphenhydramine HCl 25 mg capsule 25 mg PO QHS PRN all ergic reaction 07/05/24 07/31/24 History (Benadryl) fluticasone propionate 50 2 spray intranasal DAILY PRN 07/05/24 08/01/24 History mcg/actuation nasal allergy symptoms spray,suspension (Flonase Allergy Relief) levothyroxine 137 mcg tablet 137 mcg PO QDAY thyroid 0 07/05/24 09/05/24 History (Synthroid) turmeric root extract 500 mg 500 mg PO QDAY supplement 07/05/24 09/04/24 History capsule amlodipine 5 mg tablet 5 mg PO DAILY blood pressure #90 07/13/24 09/05/24 Rx tabs carvedilol 25 mg tablet 25 mg PO BID blood pressure #180 07/31/24 09/05/24 Rx tabs spironolactone 25 mg tablet 25 mg PO DAILY diuretic #9 0 tabs 07/31/24 09/05/24 Rx fluticasone propionate 115 2 puff inhalation BID breat yovani 08/01/24 09/04/24 History mcg-salmeterol 21 mcg/actuation HFA inhaler (Advair HFA) furosemide 40 mg tablet 40 mg PO BID #120 tabs 08/0309/05/24 Rx potassium chloride 20 mEq 20 meq PO BIDCM #60 tabs 09/04/24 Rx tablet,extended release(part/cryst) Allergy/AdvReac Type Severity Reaction Status Date / Time Environmental Allergies: Allergy Anaphylaxis Verified 09/05/24 15:54 Uncoded rosuvastatin (From Crestor) AdvReac Intermediate Myalgias Verified 09/05/24 15:54 nifedipine AdvReac Unknown Verified 09/05/24 15:54 simvastatin (From Zocor) AdvReac Myalgias Verified 09/05/24 15:54 Family History Father , age 70 Colon cancer Mother , age 67 CAD (coronary artery disease) Hypertension Brother , age 59 CAD (coronary artery disease) Hypertension Brother Hypertension Diabetes Other Family history of hypertension Surgical History History of left heart catheterization (08/09/16) History of parathyroid surgery (02/2002) History of tubal ligation History of cholecystectomy H/O aortic valve replacement (12/22/16) Social History Smoking Status: Never smoker alcohol intake: never substance use type: does not use caffeine: Yes Type: tea Number of servings: 2 what type of physical activity do you participate in: walking frequency: 3-4 times per week duration: 15-30 minutes/day seatbelt use: always do you feel safe at home: Yes ROS ROS ED Constitutional Constitutional ED: Denies chills, fever(s), subjective, sweats or weight loss Eyes Eyes: Reports change in vision bilateral (When patient passed out); Denies blurry vision ENT ENT ED: Denies ear pain, rhinorrhea or sore throat Cardiovascular Cardiovascular: Denies chest pain, orthopnea, palpitations or paroxysmal nocturnal dyspnea Respiratory/Chest Respiratory/Chest: Denies cough, dyspnea, dyspnea on exertion, orthopnea or paroxysmal nocturnal dyspnea Gastrointestinal Gastrointestinal: Denies abdominal pain, diarrhea, melena, nausea or vomiting Genitourinary Genitourinary ED: Denies hematuria Musculoskeletal Musculoskeletal: Denies back pain Integumentary Denies rash Neurologic Neurologic: Reports weakness; Denies headache(s) or paresthesias Psychiatric Psychiatric: Denies anxiety or depression Hematologic/Lymphatic Hematologic/Lymphatic: Reports systems reviewed and no addt'l complaints, exceptas documented EXAM Physical Exam Const Vital Signs: 09/05/24 15:52 09/05/24 16:11 09/05/24 16:27 Temperature 97.8 F Temperature Source Oral Pulse Rate 58 L Pulse Rate [Lying] 62 Pulse Rate [Sitting (for 1 minute prior to obtaining)] 57 L Pulse Rate [Standing (for 1 minute prior to obtaining)] 54 L Respiratory Rate 20 H Respiratory Effort Normal Respiratory Pattern Normal Blood Pressure 115/28 L Blood Pressure [Lying] 122/41 H Blood Pressure [Sitting (for 1 minute prior to obtaining)] 128/39 H Blood Pressure [Standing (for 1 minute prior to obtaining)] 108/34 L Blood Pressure Mean 57 Blood Pressure Mean [Lying] 68 Blood Pressure Mean [Sitting (for 1 minute prior to obtaining)] 68 Blood Pressure Mean [Standing (for 1 minute prior to obtaining)] 58 Pulse Ox 99 Oxygen Delivery Method Room Air 09/05/24 16:52 09/05/24 17:00 Temperature Temperature Source Pulse Rate 54 L 59 L Pulse Rate [Lying] Pulse Rate [Sitting (for 1 minute prior to obtaining)] Pulse Rate [Standing (for 1 minute prior to obtaining)] Respiratory Rate 20 H 26 H Respiratory Effort Respiratory Pattern Blood Pressure 124/53 H 124/53 H Blood Pressure [Lying] Blood Pressure [Sitting (for 1 minute prior to obtaining)] Blood Pressure [Standing (for 1 minute prior to obtaining)] Blood Pressure Mean 76 76 Blood Pressure Mean [Lying] Blood Pressure Mean [Sitting (for 1 minute prior to obtaining)] Blood Pressure Mean [Standing (for 1 minute prior to obtaining)] Pulse Ox 97 97 Oxygen Delivery Method Room Air Room Air Positive well nourished and well developed Constitutional Narrative: BMI is 40.6. Patient's blood pressure is low for her. She is not tachycardic. She is bradycardic. Based on med list she is not on a blood thinner. She is jean baby aspirin. She is on a beta-lisa. This would probably explain her bradycardia. Orthostatic vital signs were negative. General Appearance ED: well developed and NAD; Negative for cyanotic, diaphoretic or pallor HEENT Reports moist mucous membranes HEENT Narrative: Head is atraumatic and normocephalic. Ears normal. No septal deviation hematoma. No dental trauma. Eyes EOMs intact bilaterally General Eye ED: Negative for pale conjunctiva or scleral icterus Neck no lymphadenopathy, supple and no JVD Chest Wall inspection of chest normal and palpation of chest normal Resp normal respiratory effort and clear to auscultation bilaterally Cardio regular rhythm, S1 normal heart sound, S2 normal heart sound and no murmurs Rate: bradycardia GI normal to inspection, nondistended, normoactive bowel sounds, non-tender, non-distended and no masses; Negative for hepatosplenomegaly Back/Spine no CVA tenderness Extremity normal to inspection General Extremety ED: Negative for edema or tenderness General Extremity: Negative for edema Neuro oriented x3 and CN's II-XII intact bilaterally Sensorium / Orientation: alert Psych mental status grossly normal Skin no rashes or lesions noted, no wounds and skin turgor normal General Skin Exam: Negative for jaundice or pallor MDM MDM MDM Narrative Medical decision making narrative: Will have nurse perform orthostatic vital signs to determine if she is hypovolemic or has autonomic dysfunction etc. She states in July she had her Lasix dose doubled and was placed on spironolactone. In light of this need to assess electrolytes and specifically sodium, potassium and chloride. Also to assess renal function. If BUN/creatinine is elevated compared to baseline she may have mild prerenal azotemia. EKG was obtained to assess for any dysrhythmia. History & Record Review Additional record(s) reviewed:: Prior inpatient record (Documented HPI narrative), Prior ED visit (Documented HPI narrative) and Prior labs Lab Data Attestation: I reviewed the patient's lab results. Lab results narrative: Basic metabolic panel is remarkable for a BUN of 108 and creatinine of 3.52 and potassium of 8.5. Last electrolyte panel was August 10 and her BUN was 3085 with acreatinine of 1.54 and potassium was normal. At the end of July she had a low potassium of 2.9. Her BUN and creatinine at that time was 19 and 1.05. Calciumis elevated 11.5. Will obtain an albumin Labs: Laboratory Results - last 24 hr 09/05/24 16:06 Sodium 130 L Potassium 8.5 H* Chloride 103 Carbon Dioxide 17.0 L Anion Gap 10 BUN 108 H* Creatinine 3.52 H Est GFR (MDRD) Non-Af 13 L BUN/Creatinine Ratio 30.7 H Glucose 121 H Calcium 11.5 H EKG Initial EKG: Attestation: I personally reviewed and interpreted this EKG as follows: Interpretation: Sinus Bradycardia (Rate is 58. There is evidence of a first-degree AV block. SC interval is 232 ms. QRS duration is prolonged at 184ms and patient has a configuration consistent with right bundle branch block. QT duration is 434 ms. There is no acute ischemic changes noted.) Treatment and Re-Evaluation :: Patient was treated with IV gluconate, glucose, insulin and bicarb since her CO2is low. She has a new first-degree heart block compared to EKG performed on 2024. The right bundle branch block was present at that time. Patient is noted to have some irregular on the monitor. She is bradycardic. Critical Care Time Critical Care Time: Yes Critical care time (excluding procedures): 30-74 minutes (33), Including time spent: (History, physical, documentation, independent rotation of laboratories alts in treatment for hyperkalemia with EKG changes and acute kidney injury, review of prior record), Discussing w/Patient &/or Family/Hall Porter (Patient was told that she has acute kidney injury with EKG changes due to high potassium.), Discussing w/Consultants (Dr. Velázquez the hospitalist was paged for admission) and Arranging Admission or Transfer Discharge Plan Dx/Rx/DC Orders Clinical Impression: Acute hyperkalemia, Hyperlipidemia, H/O aortic valve replacement, Essential hypertension, Atherosclerosis of coronary artery of [place] heart without angina pectoris, First degree heart block, Right bundle branch block, Acute kidney injury, Acute prerenal azotemia, Syncope and collapse, Acute hypotension, Hypercalcemia, Acute hyponatremia Disposition Disposition: [facility] What to do if you have Problems For any increased pain, shortness of breath, bleeding, nausea or vomiting, chestpain, or any unexpected problems, contact your Primary Care Provider. Call [facility] ([phone]) or report to the closest Emergency Room. Call 911 if necessary. 09/05/24 1758 <Electronically signed by Ramin Berman MD> Cosigner Signature (if applicable): CC: Dr. Pam Mcgill MD ~ Signed [facility] Work Phone: [phone] Discharge summary [facility] Medical Records Department [address] [place] [id number] Discharge Summary 08/03/24 1157 MR#: [id number] Acct: [id number] Name: FRANK FAIR Rep #:[id number] : 1940 83 From: Nahun Diaz MD PCP: Dr. Pam Mcgill MD Status:AD M IN Location: [place] [id number] Providers Date of Admission: 08/01/24 Primary Care Physician: Dr. Pam Mcgill MD Reason For Visit: CHF Diagnosis Discharge Diagnosis (1) Shortness of breath: Status: Acute Code(s): R06.02 - Shortness of breath Plan Patient is an 83-year-old lady admitted with progressive shortness of breath imaging studies demonstrated features consistent with congestive heart failure. Admitted to a monitored bed for further management 1. Acute congestive heart failure with suspected preserved ejection fraction ? Patient admitted to a monitored bed treatment initiated with strict input and output, daily weight, low-sodium diet, fluid restriction and diuretic therapy with furosemide. As part of evaluation ordered 2D echo for LVEF assessment ? 08/02/2024;Patient is an 83-year-old lady admitted with progressive shortness of breath and assessment of acute congestive heart failure made. Started on furosemide admitted to a monitored bed. Patient weight on admission was 95.4, currently down to 93.8. I's and O's and negative fluid balance of 400 mL ? 08/03/2024; 2D echo result as below The estimated ejection fraction is 55-60 %. Bioprosthetic aortic valve With mildaortic stenosis Maximum pressure gradient of 31 mmHg With a mean pressure gradient of 16.5 mmHg Color-flow and Doppler revealed moderate aortic regurgitation Mild MR Trivial tricuspid regurgitation. 2. Acute hypoxia Secondary to above patient placed on supplemental oxygen titrated to keep saturation greater than 90 ? 08/02/2024; plan is to assess patient for possible home oxygen prior to discharge ? 08/03/2024; I have reviewed the oxygen testing, and this patient qualifies for the home equipment and portability. The patient is mobile in the home and the community. 3. Valvular heart disease ? With history of TAVR at [facility] in 2017 4. Class III obesity with BMI of 40.6 ? Complicating care, weight loss advised 5. Dyslipidemia ? Patient is on Zetia did continue 6. Allergic rhinitis ? Patient is on fluticasone discontinued home dose 7. Mild coronary artery disease ? Patient did not present with any anginal symptoms we will continue with monitoring 8. Diabetes mellitus type 2 ? Listed on patient history currently not on any therapeutics we will continue with monitoring 9. Obstructive sleep apnea ? Consistent use of PAP therapy encouraged 10. Hypokalemia ? Secondary to patient being on furosemide. Corrected low potassium per protocol repeat potassium levels ordered in a.m. for subsequent eval 11. Anemia ? Secondary to chronic disorder monitoring H&H and transfuse if patient becomes symptomatic or hemoglobin falls below 7 12. DVT prophylaxis ? Subcu heparin 13. Anemia ? Secondary to chronic disorder monitoring H&H and transfuse if patient becomes symptomatic or hemoglobin falls below 7 Time spent in the patient's overall evaluation,decision-making process, review of diagnostic data, adjustment of management, discussion with other providers, nursing nursing and ancillary staff involved in patient's care documentation, 38 Minutes Medications at Discharge Home Medications albuterol sulfate 90 mcg/actuation aerosol inhaler 1 puff inhalation Q4H PRN PRNAsthma 08/06/16 cholecalciferol (vitamin D3) 25 mcg (1,000 unit) tablet 1,000 unit PO DAILY 08/06/16 montelukast 10 mg tablet 10 mg PO DAILY 08/06/16 omega-3 fatty acids-fish oil 300 mg-1,000 mg capsule 1 ea PO DAILY 08/06/16 vitamin A 2,400 mcg capsule 8,000 unit PO DAILY 08/06/16 vitamin E mixed 1,000 unit capsule 1,000 unit PO DAILY 08/06/16 multivitamin 1 tab PO DAILY 02/16/17 aspirin 81 mg tablet,delayed release 81 mg PO DAILY@0800 #90 tabs 02/11/22 zinc gluconate 50 mg tablet 50 mg PO DAILY 02/11/22 lisinopril 40 mg tablet 40 mg PO DAILY #90 tabs 01/26/24 ezetimibe 10 mg tablet (Zetia) 10 mg PO DAILY #90 tabs 04/12/24 cetirizine 10 mg tablet 10 mg PO QDAY PRN allergy symptoms 04/17/24 magnesium 250 mg tablet 250 mg PO DAILY 04/17/24 rosuvastatin 5 mg tablet 5 mg PO DAILY 04/17/24 diphenhydramine HCl 25 mg capsule (Benadryl) 25 mg PO QHS PRN allergic reaction 07/05/24 fluticasone propionate 50 mcg/actuation nasal spray,suspension (Flonase Allergy Relief) 2 spray intranasal DAILY PRN allergy symptoms 07/05/24 levothyroxine 137 mcg tablet (Synthroid) 137 mcg PO QDAY 07/05/24 turmeric root extract 500 mg capsule 500 mg PO QDAY 07/05/24 amlodipine 5 mg tablet 5 mg PO DAILY #90 tabs 07/13/24 carvedilol 25 mg tablet 25 mg PO BID #180 tabs 07/31/24 spironolactone 25 mg tablet 25 mg PO DAILY #90 tabs 07/31/24 fluticasone propionate 115 mcg-salmeterol 21 mcg/actuation HFA inhaler (Advair HFA) 2 puff inhalation BID 08/01/24 furosemide 40 mg tablet 40 mg PO BID #120 tabs 08/03/24 potassium chloride 20 mEq tablet,extended release(part/cryst) 20 meq PO BIDCM #60 tabs 08/03/24 Physical Exam Narrative GENERAL: cooperative HEENT: Atraumatic; normocephalic EYES; Anicteric, Normal Conjunctiva NECK; supple, normal thyroid, RESPIRATORY: Diminished to auscultation CARDIOVASCULAR: Regular S1 S2, GI: soft, normoactive bowel sounds, : No Renal angle tenderness; EXTREMITIES: Bipedal edema MUSCULOSKELETAL: no muscle wasting NEURO: Awake; no lateralizing signs. SKIN: No Rash PSYCH; Flat affect Medical Records Data Medical Nutrition Assessment Dietitian: Malnutrition Criteria Met Start: 08/02/24 11:19 Freq: Status: Active Protocol: Document 08/02/24 15:29 SB (Rec: 08/02/24 15:29 SB [id number]) Nutrition Malnutrition Evidence of Yes Malnutrition Exists Malnutrition (severe Acute Illness/Injury ): Evidenced By Suboptimal Energy Intake (Severe),Weight Loss (Severe) Clinical Problem Acute Disease or Injury Related Malnutrition Etiology severe related to inadequate oral intake Signs/Symptoms as evidenced by 6% unintentional weight loss x 3 weeks and PO meeting <50% of estimated nutrition needs x 1 month. Status Active Problem Recommendation Dietitian Adjust to cardiac diet. Recommendations/ Will monitor weigh trends. Changes Weight / BMI Weight Weight: 93.3 kg Body Mass Index (BMI) 40.1 ABG / Lab / Microbiology Data 08/03/24 04:10 08/03/24 04:10 Laboratory: Laboratory Results - last 24 hr 08/03/24 04:10: WBC 7.8, RBC 4.16 L, Hgb 11.7 L, Hct 35.9 L, MCV 86.3, MCH 28.1,MCHC 32.6, RDW Std Deviation 47.7 H, RDW Coeff of Judson 15.0 H, Plt Count 209, MPV11.3, Immature Gran % (Auto) 0.300, Neut % (Auto) 62.5, Lymph % (Auto) 23.8, Rankin % (Auto) 10.5 H, Eos % (Auto) 2.4, Baso % (Auto) 0.5, Absolute Neuts (auto) 4.9, Absolute Lymphs (auto) 1.86, Nucleated RBC % 0, Sodium 141, Potassium 2.9 L,Chloride 99, Carbon Dioxide 28.0, Anion Gap 14, BUN 19, Creatinine 1.05, EstimCreat Clear Calc 42.87 L, Est GFR (MDRD) Non-Af 53 L, BUN/Creatinine Ratio 18.1,Glucose 111 H, Calcium 9.4 D/C Instructions Discharge Diet: 8 Cup Fluid Restriction and 2000 mg Sodium Diet Discharge Activity: Return to Normal Activity Call your doctor if you observe: Fever of 101 or Higher, Shortness of breath, Fainting spells and Chest pain DC O2, CPAP, BIPAP Needs Home O2 Discharge instructions: Yes Type of respiratory needs?: Oxygen Oxygen frequency: With Ambulation Oxygen liters per minute during Ambulation: 2 DC home with Oxygen: Yes Home O2 MD Review: I have reviewed the oxygen testing, and the patient qualifies for home oxygen equipment and portability. The patient is mobile in the home and the community. Meaningful Use Info Meaningful Use Meaningful Use Diagnoses (Choose all that apply): CHF CHF ZAHRAA/ARB ordered at discharge?: Yes Documented LVEF (%): 55 Ischemic Stroke Statin Dosing Therapy Reference: STATIN DOSE THERAPY REFERENCE: * Patients > 75 years receive moderate or high dose statin therapy. * Patients 75 years or YOUNGER should receive HIGH intensity statin dose unless contraindicated. You will be required to document reason for non-treatment if statin daily dose does not meet guidelines. HIGH DOSE STATIN THERAPY DAILY Atorvastatin > than or = to 40 mg Rosuvastatin > than or = to 20 mg Amlodipine + Atorvastatin > than or = to 2.5/40 mg Ezetimibe + Simvastatin 10/80 mg Simvastatin 80mg Discharge Plan Admission Admit Date/Time: 08/01/24 11:59 Attending Provider: Nahun Diaz Primary Care Provider: Pam Mcgill Discharge Orders/Prescriptions Prescriptions: New potassium chloride 20 mEq Tablet,Er Particles/Crystals 20 meq PO BIDCM Qty: 60 0RF Continued multivitamin tablet 1 tab PO DAILY zinc gluconate 50 mg tablet 50 mg PO DAILY aspirin 81 mg tablet,delayed release (DR/EC) 81 mg PO DAILY@0800 Qty: 90 3RF rosuvastatin 5 mg tablet 5 mg PO DAILY Rx Instructions: ONLY TAKE OIN TUESDAY AND TUESDAY magnesium 250 mg tablet 250 mg PO DAILY cetirizine 10 mg tablet 10 mg PO QDAY PRN (Reason: allergy symptoms) fluticasone propionate [Flonase Allergy Relief] 50 mcg/actuation spray,suspension 2 spray intranasal DAILY PRN (Reason: allergy symptoms) Rx Instructions: administer into each nostril levothyroxine [Synthroid] 137 mcg tablet 137 mcg PO QDAY Rx Instructions: Take 1 tab daily, add 1/2 tab on Sundays turmeric root extract 500 mg capsule 500 mg PO QDAY diphenhydramine HCl [Benadryl] 25 mg capsule 25 mg PO QHS PRN (Reason: allergic reaction) amlodipine 5 mg tablet 5 mg PO DAILY Qty: 90 4RF vitamin A 8,000 UNIT capsule 8,000 unit PO DAILY montelukast 10 MG tablet 10 mg PO DAILY Patient Comments: PT TAKES AT BEDTIME albuterol sulfate 1 PUFF inhaler 1 puff INHALATION Q4H PRN PRN (Reason: Asthma) cholecalciferol (vitamin D3) 1,000 UNIT tablet 1,000 unit PO DAILY omega-3 fatty acids-fish oil 1 EACH capsule 1 ea PO DAILY vitamin E mixed 1,000 UNIT capsule 1,000 unit PO DAILY fluticasone propion-salmeterol [Advair HFA] 115-21 mcg/actuation HFA aerosol inhaler 2 puff INHALATION BID lisinopril 40 mg tablet 40 mg PO DAILY Qty: 90 3RF ezetimibe [Zetia] 10 mg tablet 10 mg PO DAILY Qty: 90 3RF carvedilol 25 mg tablet 25 mg PO BID Qty: 180 3RF Rx Instructions: must administer with a meal/food spironolactone 25 mg tablet 25 mg PO DAILY Qty: 90 3RF Changed furosemide 40 mg tablet 40 mg PO BID Qty: 120 3RF Other Ambulatory Orders: Basic Metabolic Profile (BMP) (Routine) Timeframe: [id number] Facility: [facility] - Location: Laboratory Ordered By: Dr. Nahun Diaz Referrals / Follow Up: Pam Mcgill MD [Primary Care Provider] - Within 2 Weeks Disposition Disposition (needs filled in before D/C Order can be placed): Home, Self Care Charges/Coding Visit Charges Inpatient E&M: 94026 Disch Hosp >30min 08/03/24 1205 Cosigner Signature (if applicable): CC: Dr. Nahun Diaz MD; Dr. Pam Mcgill MD~ Signed [facility]05-30-2025 [facility] Medical Records Department [address] [place] [address] Discharge Summary 08/03/24 1157 MR#: [id number] Acct: [id number] Name: FRANK FAIR Rep #: [id number] : 1940 83 From: Nahun Diaz MD PCP: Dr. Pam Mcgill MD Status:DIS IN Location: [place] [address]1 Providers Date of Admission: 08/01/24 Primary Care Physician: Dr. Pam Mcgill MD Reason For Visit: CHF Diagnosis Discharge Diagnosis (1) Shortness of breath: Status: Acute Code(s): R06.02 - Shortness of breath Plan Patient is an 83-year-old lady admitted with progressive shortness of breath imaging studies demonstrated features consistent with congestive heart failure. Admitted to a monitored bed for further management 1. Acute congestive heart failure with suspected preserved ejection fraction ??? Patient admitted to a monitored bed treatment initiated with strict input and output, daily weight, low-sodium diet, fluid restriction and diuretic therapy with furosemide. As part of evaluation ordered 2D echo for LVEF assessment ??? 08/02/2024;Patient is an 83-year-old lady admitted with progressive shortness of breath and assessment of acute congestive heart failure made. Started on furosemide admitted to a monitored bed. Patient weight on admission was 95.4, currently down to 93.8. I's and O's and negative fluid balance of 400 mL ??? 08/03/2024; 2D echo result as below The estimated ejection fraction is 55-60 %. Bioprosthetic aortic valve With mild aortic stenosis Maximum pressure gradient of 31 mmHg With a mean pressure gradient of 16.5 mmHg Color-flow and Doppler revealed moderate aortic regurgitation Mild MR Trivial tricuspid regurgitation. 2. Acute hypoxia Secondary to above patient placed on supplemental oxygen titrated to keep saturation greater than 90 ??? 08/02/2024; plan is to assess patient for possible home oxygen prior to discharge ??? 08/03/2024; I have reviewed the oxygen testing, and this patient qualifies for the home equipment and portability. The patient is mobile in the home and the community. 3. Valvular heart disease ??? With history of TAVR at [facility] in 2017 4. Class III obesity with BMI of 40.6 ??? Complicating care, weight loss advised 5. Dyslipidemia ??? Patient is on Zetia did continue 6. Allergic rhinitis ??? Patient is on fluticasone discontinued home dose 7. Mild coronary artery disease ??? Patient did not present with any anginal symptoms we will continue with monitoring 8. Diabetes mellitus type 2 ??? Listed on patient history currently not on any therapeutics we will continue with monitoring 9. Obstructive sleep apnea ??? Consistent use of PAP therapy encouraged 10. Hypokalemia ??? Secondary to patient being on furosemide. Corrected low potassium per protocol repeat potassium levels ordered in a.m. for subsequent eval 11. Anemia ??? Secondary to chronic disorder monitoring H H and transfuse if patient becomes symptomatic or hemoglobin falls below 7 12. DVT prophylaxis ??? Subcu heparin 13. Anemia ??? Secondary to chronic disorder monitoring H H and transfuse if patient becomes symptomatic or hemoglobin falls below 7 Time spent in the patient's overall evaluation,decision-making process, review of diagnostic data, adjustment of management, discussion with other providers, nursing nursing and ancillary staff involved in patient's care documentation, 38 Minutes Medications at Discharge Home Medications albuterol sulfate 90 mcg/actuation aerosol inhaler 1 puff inhalation Q4H PRN PRN Asthma 08/06/16 cholecalciferol (vitamin D3) 25 mcg (1,000 unit) tablet 1,000 unit PO DAILY 08/06/16 montelukast 10 mg tablet 10 mg PO DAILY 08/06/16 omega-3 fatty acids-fish oil 300 mg-1,000 mg capsule 1 ea PO DAILY 08/06/16 vitamin A 2,400 mcg capsule 8,000 unit PO DAILY 08/06/16 vitamin E mixed 1,000 unit capsule 1,000 unit PO DAILY 08/06/16 multivitamin 1 tab PO DAILY 02/16/17 aspirin 81 mg tablet,delayed release 81 mg PO DAILY@0800 #90 tabs 02/11/22 zinc gluconate 50 mg tablet 50 mg PO DAILY 02/11/22 lisinopril 40 mg tablet 40 mg PO DAILY #90 tabs 01/26/24 ezetimibe 10 mg tablet (Zetia) 10 mg PO DAILY #90 tabs 04/12/24 cetirizine 10 mg tablet 10 mg PO QDAY PRN allergy symptoms 04/17/24 magnesium 250 mg tablet 250 mg PO DAILY 04/17/24 rosuvastatin 5 mg tablet 5 mg PO DAILY 04/17/24 diphenhydramine HCl 25 mg capsule (Benadryl) 25 mg PO QHS PRN allergic reaction 07/05/24 fluticasone propionate 50 mcg/actuation nasal spray,suspension (Flonase Allergy Relief) 2 spray intranasal DAILY PRN allergy symptoms 07/05/24 levothyroxine 137 mcg tablet (Synthroid) 137 mcg PO QDAY 07/05/24 turmeric root extract 500 mg capsule 500 mg PO QDAY 07/05/24 amlodipine 5 mg tablet 5 mg PO DAILY #90 tabs 07/13/24 carvedilol 25 mg tablet 25 mg PO BID #180 tabs 07/31/24 spiron (more content not included)...[facility]05-30-2025 Progress note [facility] Medical Records Department [address] [place] [address] Progress Note - Hospitalist 08/03/24 0850 MR#: [id number] Acct: [id number] Name: FRANK FAIR Rep #:[id number] : 1940 83 From: Nahun Diaz MD PCP: Dr. Pam Mcgill MD Status:AD IN Location: [place] [address] Reason for Visit Reason for Visit: Diagnoses Shortness of breath (08/01/24) Subjective Subjective Patient seen has responded to diuretic therapy. Potassium this morning is down to 2.9 additional replacement given. Patient also remains on supplemental oxygen and will be assessed for home oxygen prior to discharge Objective Data Objective Data Vital Signs: Vital Signs Temp Pulse Resp BP Pulse Ox O2 Del Method O2 Flow Rate 97.9 F 78 20 H 157/43 H 93 Room Air 2 08/03/24 05:29 08/03/24 07:00 08/03/24 07:00 08/03/24 05:29 08/03/24 07:00 08/03/24 07:00 08/03/24 05:29 Oxygen Flow Rate (L/min) 2 Oxygen Delivery Method Room Air Weight: 93.3 kg Body Mass Index (BMI) 40.1 Intake & Output: Intake and Output for Last 24 Hours 08/01/24 08/02/24 08/03/24 23:59 23:59 23:59 Intake Total 1000 / 1000 240 / 240 Output Total 1200 / 1950 1650 / 1650 Balance -200 / -950 -1410 / -1410 Medical Nutrition Assessment Dietitian: Malnutrition Criteria Met Start: 08/02/24 11:19 Freq: Status: Active Protocol: Document 08/02/24 15:29 SB (Rec: 08/02/24 15:29 SB [id number]) Nutrition Malnutrition Evidence of Yes Malnutrition Exists Malnutrition (severe Acute Illness/Injury ): Evidenced By Suboptimal Energy Intake (Severe),Weight Loss (Severe) Clinical Problem Acute Disease or Injury Related Malnutrition Etiology severe related to inadequate oral intake Signs/Symptoms as evidenced by 6% unintentional weight loss x 3 weeks and PO meeting <50% of estimated nutrition needs x 1 month. Status Active Problem Recommendation Dietitian Adjust to cardiac diet. Recommendations/ Will monitor weigh trends. Changes Lab / Micro Data 08/03/24 04:10 08/03/24 04:10 Labs: Laboratory Results - last 24 hr 08/03/24 04:10: WBC 7.8, RBC 4.16 L, Hgb 11.7 L, Hct 35.9 L, MCV 86.3, MCH 28.1,MCHC 32.6, RDW Std Deviation 47.7 H, RDW Coeff of Judson 15.0 H, Plt Count 209, MPV11.3, Immature Gran % (Auto) 0.300, Neut % (Auto) 62.5, Lymph % (Auto) 23.8, Rankin % (Auto) 10.5 H, Eos % (Auto) 2.4, Baso % (Auto) 0.5, Absolute Neuts (auto) 4.9, Absolute Lymphs (auto) 1.86, Nucleated RBC % 0, Sodium 141, Potassium 2.9 L,Chloride 99, Carbon Dioxide 28.0, Anion Gap 14, BUN 19, Creatinine 1.05, EstimCreat Clear Calc 42.87 L, Est GFR (MDRD) Non-Af 53 L, BUN/Creatinine Ratio 18.1,Glucose 111 H, Calcium 9.4 Physical Exam Narrative GENERAL: cooperative HEENT: Atraumatic; normocephalic EYES; Anicteric, Normal Conjunctiva NECK; supple, normal thyroid, RESPIRATORY: Diminished to auscultation CARDIOVASCULAR: Regular S1 S2, GI: soft, normoactive bowel sounds, : No Renal angle tenderness; EXTREMITIES: Bipedal edema MUSCULOSKELETAL: no muscle wasting NEURO: Awake; no lateralizing signs. SKIN: No Rash PSYCH; Flat affect Assessment & Plan Assessment/Plan (1) Shortness of breath: PLAN: Plan Patient is an 83-year-old lady admitted with progressive shortness of breath imaging studies demonstrated features consistent with congestive heart failure. Admitted to a monitored bed for further management 1. Acute congestive heart failure with suspected preserved ejection fraction ? Patient admitted to a monitored bed treatment initiated with strict input and output, daily weight, low-sodium diet, fluid restriction and diuretic therapy with furosemide. As part of evaluation ordered 2D echo for LVEF assessment ? 08/02/2024;Patient is an 83-year-old lady admitted with progressive shortness of breath and assessment of acute congestive heart failure made. Started on furosemide admitted to a monitored bed. Patient weight on admission was 95.4, currently down to 93.8. I's and O's and negative fluid balance of 400 mL 2. Acute hypoxia Secondary to above patient placed on supplemental oxygen titrated to keep saturation greater than 90 ? 08/02/2024; plan is to assess patient for possible home oxygen prior to discharge ? 08/03/2024; I have reviewed the oxygen testing, and this patient qualifies for the home equipment and portability. The patient is mobile in the home and the community. 3. Valvular heart disease ? With history of TAVR at [facility] in 2017 4. Class III obesity with BMI of 40.6 ? Complicating care, weight loss advised 5. Dyslipidemia ? Patient is on Zetia did continue 6. Allergic rhinitis ? Patient is on fluticasone discontinued home dose 7. Mild coronary artery disease ? Patient did not present with any anginal symptoms we will continue with monitoring 8. Diabetes mellitus type 2 ? Listed on patient history currently not on any therapeutics we will continue with monitoring 9. Obstructive sleep apnea ? Consistent use of PAP therapy encouraged 10. Hypokalemia ? Secondary to patient being on furosemide. Corrected low potassium per protocol repeat potassium levels ordered in a.m. for subsequent eval 11. Anemia ? Secondary to chronic disorder monitoring H&H and transfuse if patient becomes symptomatic or hemoglobin falls below 7 12. DVT prophylaxis ? Subcu heparin 13. Anemia ? Secondary to chronic disorder monitoring H&H and transfuse if patient becomes symptomatic or hemoglobin falls below 7 Time spent in the patient's overall evaluation,decision-making process, review of diagnostic data, adjustment of management, discussion with other providers, nursing nursing and ancillary staff involved in patient's care documentation, 38 Minutes 08/03/24 1157 Cosigner Signature (if applicable): CC: ~ Signed [facility]05-30-2025 Progress note Author Nahun Diaz [facility] Note Date/Time August 03, 2024 11:57 am [facility] Medical Records Department [address] [place] [address] Progress Note - Hospitalist 08/03/24 0850 MR#: [id number] Acct: [id number] Name: FRANK FAIR Rep #:[id number] : 1940 83 From: Nahun Diaz MD PCP: Dr. Pam Mcgill MD Status:AD M IN Location: [place] [address] Reason for Visit Reason for Visit: Diagnoses Shortness of breath (08/01/24) Subjective Subjective Patient seen has responded to diuretic therapy. Potassium this morning is down to 2.9 additional replacement given. Patient also remains on supplemental oxygen and will be assessed for home oxygen prior to discharge Objective Data Objective Data Vital Signs: Vital Signs Temp Pulse Resp BP Pulse Ox O2 Del Method O2 Flow Rate 97.9 F 78 20 H 157/43 H 93 Room Air 2 08/03/24 05:08/03/24 07:00 08/03/24 07:00 08/03/24 05:08/03/24 07:00 08/03/24 07:00 08/03/24 05:29 Oxygen Flow Rate (L/min) 2 Oxygen Delivery Method Room Air Weight: 93.3 kg Body Mass Index (BMI) 40.1 Intake & Output: Intake and Output for Last 24 Hours 08/01/24 08/02/24 08/03/24 23:59 23:59 23:59 Intake Total 1000 / 1000 240 / 240 Output Total 1200 / 1950 1650 / 1650 Balance -200 / -950 -1410 / -1410 Medical Nutrition Assessment Dietitian: Malnutrition Criteria Met Start: 08/02/24 11:19 Freq: Status: Active Protocol: Document 08/02/24 15:29 SB (Rec: 08/02/24 15:29 SB [id number]) Nutrition Malnutrition Evidence of Yes Malnutrition Exists Malnutrition (severe Acute Illness/Injury ): Evidenced By Suboptimal Energy Intake (Severe),Weight Loss (Severe) Clinical Problem Acute Disease or Injury Related Malnutrition Etiology severe related to inadequate oral intake Signs/Symptoms as evidenced by 6% unintentional weight loss x 3 weeks and PO meeting <50% of estimated nutrition needs x 1 month. Status Active Problem Recommendation Dietitian Adjust to cardiac diet. Recommendations/ Will monitor weigh trends. Changes Lab / Micro Data 08/03/24 04:10 08/03/24 04:10 Labs: Laboratory Results - last 24 hr 08/03/24 04:10: WBC 7.8, RBC 4.16 L, Hgb 11.7 L, Hct 35.9 L, MCV 86.3, MCH 28.1,MCHC 32.6, RDW Std Deviation 47.7 H, RDW Coeff of Judson 15.0 H, Plt Count 209, MPV11.3, Immature Gran % (Auto) 0.300, Neut % (Auto) 62.5, Lymph % (Auto) 23.8, Rankin % (Auto) 10.5 H, Eos % (Auto) 2.4, Baso % (Auto) 0.5, Absolute Neuts (auto) 4.9, Absolute Lymphs (auto) 1.86, Nucleated RBC % 0, Sodium 141, Potassium 2.9 L, Chloride 99, Carbon Dioxide 28.0, Anion Gap 14, BUN 19, Creatinine 1.05, EstimCreat Clear Calc 42.87 L, Est GFR (MDRD) Non-Af 53 L, BUN/Creatinine Ratio 18.1,Glucose 111 H, Calcium 9.4 Physical Exam Narrative GENERAL: cooperative HEENT: Atraumatic; normocephalic EYES; Anicteric, Normal Conjunctiva NECK; supple, normal thyroid, RESPIRATORY: Diminished to auscultation CARDIOVASCULAR: Regular S1 S2, GI: soft, normoactive bowel sounds, : No Renal angle tenderness; EXTREMITIES: Bipedal edema MUSCULOSKELETAL: no muscle wasting NEURO: Awake; no lateralizing signs. SKIN: No Rash PSYCH; Flat affect Assessment & Plan Assessment/Plan (1) Shortness of breath: PLAN: Plan Patient is an 83-year-old lady admitted with progressive shortness of breath imaging studies demonstrated features consistent with congestive heart failure. Admitted to a monitored bed for further management 1. Acute congestive heart failure with suspected preserved ejection fraction ? Patient admitted to a monitored bed treatment initiated with strict input and output, daily weight, low-sodium diet, fluid restriction and diuretic therapy with furosemide. As part of evaluation ordered 2D echo for LVEF assessment ? 08/02/2024;Patient is an 83-year-old lady admitted with progressive shortness of breath and assessment of acute congestive heart failure made. Started on furosemide admitted to a monitored bed. Patient weight on admission was 95.4, currently down to 93.8. I's and O's and negative fluid balance of 400 mL 2. Acute hypoxia Secondary to above patient placed on supplemental oxygen titrated to keep saturation greater than 90 ? 08/02/2024; plan is to assess patient for possible home oxygen prior to discharge ? 08/03/2024; I have reviewed the oxygen testing, and this patient qualifies for the home equipment and portability. The patient is mobile in the home and the community. 3. Valvular heart disease ? With history of TAVR at [facility] in 2017 4. Class III obesity with BMI of 40.6 ? Complicating care, weight loss advised 5. Dyslipidemia ? Patient is on Zetia did continue 6. Allergic rhinitis ? Patient is on fluticasone discontinued home dose 7. Mild coronary artery disease ? Patient did not present with any anginal symptoms we will continue with monitoring 8. Diabetes mellitus type 2 ? Listed on patient history currently not on any therapeutics we will continue with monitoring 9. Obstructive sleep apnea ? Consistent use of PAP therapy encouraged 10. Hypokalemia ? Secondary to patient being on furosemide. Corrected low potassium per protocol repeat potassium levels ordered in a.m. for subsequent eval 11. Anemia ? Secondary to chronic disorder monitoring H&H and transfuse if patient becomes symptomatic or hemoglobin falls below 7 12. DVT prophylaxis ? Subcu heparin 13. Anemia ? Secondary to chronic disorder monitoring H&H and transfuse if patient becomes symptomatic or hemoglobin falls below 7 Time spent in the patient's overall evaluation,decision-making process, review of diagnostic data, adjustment of management, discussion with other providers, nursing nursing and ancillary staff involved in patient's care documentation, 38 Minutes 08/03/24 1157 <Electronically signed by Nahun Diaz MD> Cosigner Signature (if applicable): CC: ~ Signed [facility] Work Phone: [phone]) 343-337305-29-2025 Progress note Author Nahun Diaz [facility] Note Date/Time August 02, 2024 9:00a m [facility] Medical Records Department [address] [place] [address] Progress Note - Hospitalist 08/02/24 0852 MR#: [id number] Acct: [id number] Name: FRANK FAIR Rep #:[id number] : 1940 83 From: Nahun Diaz MD PCP: Dr. Pam Mcgill MD Status:AD M IN Location: [address] Reason for Visit Reason for Visit: Diagnoses Shortness of breath (08/01/24) Subjective Subjective Patient is an 83-year-old lady admitted with progressive shortness of breath andassessment of acute congestive heart failure made. Started on furosemide admitted to a monitored bed. Patient weight on admission was 95.4, currently down to 93.8. I's and O's and negative fluid balance of 400 mL Objective Data Objective Data Vital Signs: Vital Signs Temp Pulse Resp BP Pulse Ox O2 Del Method O2 Flow Rate 97.5 F L 68 18 163/56 H 95 CPAP 2 08/02/24 05:59 08/02/24 05:59 08/02/24 05:59 08/02/24 05:59 08/02/24 05:59 08/02/24 05:59 08/02/24 05:59 Oxygen Flow Rate (L/min) 2 Oxygen Delivery Method CPAP Weight: 93 kg Body Mass Index (BMI) 40.0 Intake & Output: Intake and Output for Last 24 Hours 07/31/24 08/01/24 08/02/24 23:59 23:59 23:59 Output Total 400 / 400 Balance -400 / -400 Lab / Micro Data 08/02/24 05:15 08/02/24 05:15 Labs: Laboratory Results - last 24 hr 08/01/24 09:05: WBC 6.2, RBC 4.21, Hgb 11.7 L, Hct 36.6 L, MCV 86.9, MCH 27.8, MCHC 32.0, RDW Std Deviation 47.7 H, RDW Coeff of Judson 15.0 H, Plt Count 197, MPV11.4, Immature Gran % (Auto) 0.500, Neut % (Auto) 68.2, Lymph % (Auto) 18.8 L, Rankin % (Auto) 10.1 H, Eos % (Auto) 1.8, Baso % (Auto) 0.6, Absolute Neuts (auto) 4.2, Absolute Lymphs (auto) 1.17, Nucleated RBC % 0, D-Dimer Quant (PE/DVT) 0.56H*, Sodium 144, Potassium 3.0 L, Chloride 103, Carbon Dioxide 26.1, Anion Gap 14, BUN 13, Creatinine 0.96, Estim Creat Clear Calc 47.52 L, Est GFR (MDRD) Non-Af 59 L, BUN/Creatinine Ratio 13.8, Glucose 117 H, Calcium 10.2, Magnesium 1.8, Troponin T High Sens 23 H, NT pro BNP II 2361 H 08/01/24 11:15: Troponin T Hi Sens 2 Hr 23 H 08/02/24 05:15: WBC 7.1, RBC 4.13 L, Hgb 11.5 L, Hct 36.3 L, MCV 87.9, MCH 27.8,MCHC 31.7 L, RDW Std Deviation 48.3 H, RDW Coeff of Judson 15.0 H, Plt Count 209, MPV 11.5, Immature Gran % (Auto) 0.100, Neut % (Auto) 71.0 H, Lymph % (Auto) 16.7 L, Rankin % (Auto) 9.8, Eos % (Auto) 2.0, Baso % (Auto) 0.4, Absolute Neuts (auto) 5.1, Absolute Lymphs (auto) 1.19, Nucleated RBC % 0, Sodium 146 H, Potassium 3.4, Chloride 103, Carbon Dioxide 28.4, Anion Gap 15, BUN 14, Creatinine 1.05, Estim Creat Clear Calc 42.79 L, Est GFR (MDRD) Non-Af 53 L, BUN/Creatinine Ratio 13.5, Glucose 94, Calcium 10.0, Phosphorus 3.7, Magnesium 1.7 Radiography Diagnostic Testing: Radiology Impression Chest X-Ray 08/01/24 09:15 IMPRESSION: Cardiomegaly and CHF with bibasilar atelectasis and blunting of both costophrenic angles worse at the left lung base. Reading Location: [facility] Echocardiogram 08/01/24 13:25 Interpretation Summary The estimated ejection fraction is 55-60 %. Bioprosthetic aortic valve With mild aortic stenosis Maximum pressure gradient of 31 mmHg With a mean pressure gradient of 16.5 mmHg Color-flow and Doppler revealed moderate aortic regurgitation Mild MR Trivial tricuspid regurgitation. Ordering Physician: Nahun Diaz Performed By: Alexis Carter RCS Physical Exam Narrative GENERAL: cooperative HEENT: Atraumatic; normocephalic EYES; Anicteric, Normal Conjunctiva NECK; supple, normal thyroid, RESPIRATORY: Diminished to auscultation CARDIOVASCULAR: Regular S1 S2, GI: soft, normoactive bowel sounds, : No Renal angle tenderness; EXTREMITIES: Bipedal edema MUSCULOSKELETAL: no muscle wasting NEURO: Awake; no lateralizing signs. SKIN: No Rash PSYCH; Flat affect Assessment & Plan Assessment/Plan (1) Shortness of breath: PLAN: Plan Patient is an 83-year-old lady admitted with progressive shortness of breath imaging studies demonstrated features consistent with congestive heart failure. Admitted to a monitored bed for further management 1. Acute congestive heart failure with suspected preserved ejection fraction ? Patient admitted to a monitored bed treatment initiated with strict input and output, daily weight, low-sodium diet, fluid restriction and diuretic therapy with furosemide. As part of evaluation ordered 2D echo for LVEF assessment ? 08/02/2024;Patient is an 83-year-old lady admitted with progressive shortness of breath and assessment of acute congestive heart failure made. Started on furosemide admitted to a monitored bed. Patient weight on admission was 95.4, currently down to 93.8. I's and O's and negative fluid balance of 400 mL 2. Acute hypoxia Secondary to above patient placed on supplemental oxygen titrated to keep saturation greater than 90 ? 08/02/2024; plan is to assess patient for possible home oxygen prior to discharge 3. Valvular heart disease ? With history of TAVR at [facility] in 2017 4. Class III obesity with BMI of 40.6 ? Complicating care, weight loss advised 5. Dyslipidemia ? Patient is on Zetia did continue 6. Allergic rhinitis ? Patient is on fluticasone discontinued home dose 7. Mild coronary artery disease ? Patient did not present with any anginal symptoms we will continue with monitoring 8. Diabetes mellitus type 2 ? Listed on patient history currently not on any therapeutics we will continue with monitoring 9. Obstructive sleep apnea ? Consistent use of PAP therapy encouraged 10. Hypokalemia ? Secondary to patient being on furosemide. Corrected low potassium per protocol repeat potassium levels ordered in a.m. for subsequent eval 11. Anemia ? Secondary to chronic disorder monitoring H&H and transfuse if patient becomes symptomatic or hemoglobin falls below 7 12. DVT prophylaxis ? Subcu heparin 13. Anemia ? Secondary to chronic disorder monitoring H&H and transfuse if patient becomes symptomatic or hemoglobin falls below 7 Time spent in the patient's overall evaluation,decision-making process, review of diagnostic data, adjustment of management, discussion with other providers, nursing nursing and ancillary staff involved in patient's care documentation, 52 Minutes Charges/Coding Visit Charges Inpatient E&M: 85867 Subs Hosp L3 08/02/24 0900 <Electronically signed by Nahun Diaz MD> Cosigner Signature (if applicable): CC: ~ Signed [facility] Work Phone: 1(244) [phone] Progress note [facility] Medical Records Department [address] [place] [address] Progress Note - Hospitalist 08/02/24 0852 MR#: [id number] Acct: [id number] Name: FRANK FAIR Rep #:[id number] : 1940 83 From: Nahun Diaz MD PCP: Dr. Pam Mcgill MD Status:AD M IN Location: [place] [address] Reason for Visit Reason for Visit: Diagnoses Shortness of breath (08/01/24) Subjective Subjective Patient is an 83-year-old lady admitted with progressive shortness of breath andassessment of acutecongestive heart failure made. Started on furosemide admitted to a monitored bed. Patient weight onadmission was 95.4, currently down to 93.8. I's and O's and negative fluid balance of 400 mL Objective Data Objective Data Vital Signs: Vital Signs Temp Pulse Resp BP Pulse Ox O2 Del Method O2 Flow Rate 97.5 F L 68 18 163/56 H 95 CPAP 2 08/02/24 05:59 08/02/24 05:59 08/02/24 05:59 08/02/24 05:59 08/02/24 05:59 08/02/24 05:59 08/02/24 05:59 Oxygen Flow Rate (L/min) 2 Oxygen Delivery Method CPAP Weight: 93 kg Body Mass Index (BMI) 40.0 Intake & Output: Intake and Output for Last 24 Hours 07/31/24 08/01/24 08/02/24 23:59 23:59 23:59 Output Total 400 / 400 Balance -400 / -400 Lab / Micro Data 08/02/24 05:15 08/02/24 05:15 Labs: Laboratory Results - last 24 hr 08/01/24 09:05: WBC 6.2, RBC 4.21, Hgb 11.7 L, Hct 36.6 L, MCV 86.9, MCH 27.8, MCHC 32.0, RDW Std Deviation 47.7 H, RDW Coeff of Judson 15.0 H, Plt Count 197, MPV11.4, Immature Gran % (Auto) 0.500, Neut% (Auto) 68.2, Lymph % (Auto) 18.8 L, Rankin % (Auto) 10.1 H, Eos % (Auto) 1.8, Baso % (Auto) 0.6, Absolute Neuts (auto) 4.2, Absolute Lymphs (auto) 1.17, Nucleated RBC % 0, D-Dimer Quant (PE/DVT) 0.56H*, Sodium 144, Potassium 3.0 L, Chloride 103, Carbon Dioxide 26.1, Anion Gap 14, BUN 13, Creatinine0.96, Estim Creat Clear Calc 47.52 L, Est GFR (MDRD) Non-Af 59 L, BUN/Creatinine Ratio 13.8, Glucose 117 H, Calcium 10.2, Magnesium 1.8, Troponin T High Sens 23 H, NT pro BNP II 2361 H 08/01/24 11:15: Troponin T Hi Sens 2 Hr 23 H 08/02/24 05:15: WBC 7.1, RBC 4.13 L, Hgb 11.5 L, Hct 36.3 L, MCV 87.9, MCH 27.8,MCHC 31.7 L, RDW Std Deviation 48.3 H, RDW Coeff of Judson 15.0 H, Plt Count 209, MPV 11.5, Immature Gran % (Auto) 0.100, Neut % (Auto) 71.0 H, Lymph % (Auto) 16.7 L, Rankin % (Auto) 9.8, Eos % (Auto) 2.0, Baso % (Auto) 0.4,Absolute Neuts (auto) 5.1, Absolute Lymphs (auto) 1.19, Nucleated RBC % 0, Sodium 146 H, Potassium 3.4, Chloride 103, Carbon Dioxide 28.4, Anion Gap 15, BUN 14, Creatinine 1.05, Estim Creat Clear Calc 42.79 L, Est GFR (MDRD) Non-Af 53 L, BUN/Creatinine Ratio 13.5, Glucose 94, Calcium 10.0, Phosphorus 3.7, Magnesium 1.7 Radiography Diagnostic Testing: Radiology Impression Chest X-Ray 08/01/24 09:15 IMPRESSION: Cardiomegaly and CHF with bibasilar atelectasis and blunting of both costophrenic angles worse at the left lung base. Reading Location: [facility]1 Echocardiogram 08/01/24 13:25 Interpretation Summary The estimated ejection fraction is 55-60 %. Bioprosthetic aortic valve With mild aortic stenosis Maximum pressure gradient of 31 mmHg With a mean pressure gradient of 16.5 mmHg Color-flow and Doppler revealed moderate aortic regurgitation Mild MR Trivial tricuspid regurgitation. Ordering Physician: Nahun Diaz Performed By: Alexis Carter RCS Physical Exam Narrative GENERAL: cooperative HEENT: Atraumatic; normocephalic EYES; Anicteric, Normal Conjunctiva NECK; supple, normal thyroid, RESPIRATORY: Diminished to auscultation CARDIOVASCULAR: Regular S1 S2, GI: soft, normoactive bowel sounds, : No Renal angle tenderness; EXTREMITIES: Bipedal edema MUSCULOSKELETAL: no muscle wasting NEURO: Awake; no lateralizing signs. SKIN: No Rash PSYCH; Flat affect Assessment & Plan Assessment/Plan (1) Shortness of breath: PLAN: Plan Patient is an 83-year-old lady admitted with progressive shortness of breath imaging studies demonstrated features consistent with congestive heart failure. Admitted to a monitored bed for further management 1. Acute congestive heart failure with suspected preserved ejection fraction ? Patient admitted to a monitored bed treatment initiated with strict input and output, daily weight, low-sodium diet, fluid restriction and diuretic therapy with furosemide. As part of evaluation ordered 2D echo for LVEF assessment ? 08/02/2024;Patient is an 83-year-old lady admitted with progressive shortness of breath and assessment of acute congestive heart failure made. Started on furosemide admitted to a monitored bed. Patient weight on admission was 95.4, currently down to 93.8. I's and O's and negative fluid balance of 400 mL 2. Acute hypoxia Secondary to above patient placed on supplemental oxygen titrated to keep saturation greater than 90 ? 08/02/2024; plan is to assess patient for possible home oxygen prior to discharge 3. Valvular heart disease ? With history of TAVR at [facility] in 2017 4. Class III obesity with BMI of 40.6 ? Complicating care, weight loss advised 5. Dyslipidemia ? Patient is on Zetia did continue 6. Allergic rhinitis ? Patient is on fluticasone discontinued home dose 7. Mild coronary artery disease ? Patient did not present with any anginal symptoms we will continue with monitoring 8. Diabetes mellitus type 2 ? Listed on patient history currently not on any therapeutics we will continue with monitoring 9. Obstructive sleep apnea ? Consistent use of PAP therapy encouraged 10. Hypokalemia ? Secondary to patient being on furosemide. Corrected low potassium per protocol repeat potassium levels ordered in a.m. for subsequent eval 11. Anemia ? Secondary to chronic disorder monitoring H&H and transfuse if patient becomes symptomatic or hemoglobin falls below 7 12. DVT prophylaxis ? Subcu heparin 13. Anemia ? Secondary to chronic disorder monitoring H&H and transfuse if patient becomes symptomatic or hemoglobin falls below 7 Time spent in the patient's overall evaluation,decision-making process, review of diagnostic data, adjustment of management, discussion with other providers, nursing nursing and ancillary staff involved in patient's care documentation, 52 Minutes Charges/Coding Visit Charges Inpatient E&M: 65802 Subs Hosp L3 08/02/24 0900 Cosigner Signature (if applicable): CC: ~ Signed [facility]05-28-2025 Discharge summary Author Alexis Richardson [facility] Note Date/Time August 01, 2024 8:51p m [facility] Medical Records Department [address] [place] [address] Emergency Department Summary 08/01/24 MR#: [id number] Acct: [id number] Name: FRANK FAIR Rep #:[id number] 15 : 1940 83 From: Alexis Jean Baptiste ggett DO PCP: Dr. Pam Mcgill MD Status:AD M IN Location: [place] [address] HPI History of Present Illness Chief Complaint: Shortness of Breath Narrative Narrative: Chief complaint and HPI: Shortness of breath. Chief complaint and HPI: Shortness of breath. 83-year-old female with history of severe aortic stenosis,CAD, history of TAVR, CHF presents for evaluation of shortness of breath. Patient states that she has had continuous shortness of breath since May. States in May she was diagnosed with pneumonia. States she was treated outpatient with antibiotics. Patient states that she has been having increased swelling in her bilateral lower extremities. States she has been taking her home diuretics. She states that she does not check her daily weight however feels like she has gained some. Shortness of breath is worse with exertion and with lying flat. Patient states that she saw her patient support assistant recently and was referred to pulmonology. Pulmonology is concerned about CHF and sent her here to the emergency department to be evaluated for possible IV Lasix. She denies any fever, chills, URI symptoms, chest pain. Denies a history of DVT/PE, blood clotting disorder, recent trauma or surgery, exogenous estrogen use, unilateral leg swelling, known malignancy, travel. Review of systems: See HPI Medications: As listed on the chart Allergies: As listed on the chart PFSH: Per chart Vital signs: As listed on the chart. Reviewed. Physical exam: Gen: A&O x3, NAD Head: Normocephalic, atraumatic Eyes: No sclera icterus, conjunctiva clear ENT: Moist mucous membranes Neck: Trachea midline, No JVD CV: RRR, no murmurs, +2 pitting peripheral edema from the feet to the mid calf Resp: Lungs CTA BL but diminished in the bilateral bases, no w/r/c GI: Abd soft, non-distended, non-tender, no r/r/g Musc: Full ROM, no deformity Skin: Warm, dry Neuro: Alert, oriented, grossly intact, sensation intact Psych: Cooperative, appropriate mood and affect PFS PFSH Medical History Nonrheumatic aortic (valve) stenosis Atherosclerosis of coronary artery of [place] heart without angina pectoris Obesity 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rtery with unstable angina pectoris OPHELIA (obstructive sleep apnea) Essential hypertension Fatigue Family history of hypertension Exertional shortness of breath Exertional chest pain Dyspnea on exertion Dizziness and giddiness Hyperlipidemia Carotid bruit Diabetes mellitus Hypokalemia Home Medications ?Medication ?Instructions ?Recorded ?Last Taken ?Type albuterol sulfate 90 mcg/actuation 1 puff inhalation Q 4H PRN PRN 08/06/16 Unknown History aerosol inhaler Asthma cholecalciferol (vitamin D3) 25 1,000 unit PO DAILY 07/31/24 History mcg (1,000 unit) tablet montelukast 10 mg tablet 10 mg PO DAILY 08/06/1607/06 History omega-3 fatty acids-fish oil 300 1 ea PO DAILY 7 07/31/24 History mg-1,000 mg capsule vitamin A 2,400 mcg capsule 8,000 unit PO DAILY Unknown History vitamin E mixed 1,000 unit capsule 1,000 unit PO DAILY 08/06/16 Unknown History multivitamin 1 tab PO DAILY 02/16/1707/06 History aspirin 81 mg tablet,delayed 81 mg PO DAILY@0800 #90 t abs 02/11/22 08/01/24 Rx release zinc gluconate 50 mg tablet 50 mg PO DAILY 02/11/22 Un known History lisinopril 40 mg tablet 40 mg PO DAILY #90 tabs 01/0608/01/24 Rx ezetimibe 10 mg tablet (Zetia) 10 mg PO DAILY #90 tabs 04/12/24 08/01/24 Rx furosemide 40 mg tablet 40 mg PO DAILY #90 tabs 08/2908/01/24 Rx cetirizine 10 mg tablet 10 mg PO QDAY PRN allergy sy mptoms 04/17/24 07/31/24 History magnesium 250 mg tablet 250 mg PO DAILY 04/17/24 History rosuvastatin 5 mg tablet 5 mg PO DAILY 04/17/2407/30 History diphenhydramine HCl 25 mg capsule 25 mg PO QHS PRN all ergic reaction 07/05/24 07/31/24 History (Benadryl) fluticasone propionate 50 2 spray intranasal DAILY PRN 07/05/24 08/01/24 History mcg/actuation nasal allergy symptoms spray,suspension (Flonase Allergy Relief) levothyroxine 137 mcg tablet 137 mcg PO QDAY 07/05/24 08/01/24 History (Synthroid) turmeric root extract 500 mg 500 mg PO QDAY 07/05/24 U nknown History capsule amlodipine 5 mg tablet 5 mg PO DAILY #90 tabs 07/1308/01/24 Rx carvedilol 25 mg tablet 25 mg PO BID #180 tabs 07/3108/01/24 Rx spironolactone 25 mg tablet 25 mg PO DAILY #90 tabs 08/01/24 Rx fluticasone propionate 115 2 puff inhalation BID 08/0108/01/24 History mcg-salmeterol 21 mcg/actuation HFA inhaler (Advair HFA) Allergy/AdvReac Type Severity Reaction Status Date / Time Environmental Allergies: Allergy Anaphylaxis Verified 08/01/24 08:22 Uncoded rosuvastatin (From Crestor) AdvReac Intermediate Myalgias Verified 08/01/24 08:22 nifedipine AdvReac Unknown Verified 08/01/24 08:22 simvastatin (From Zocor) AdvReac Myalgias Verified 08/01/24 08:22 Family History Father , age 70 Colon cancer Mother , age 67 CAD (coronary artery disease) Hypertension Brother , age 59 CAD (coronary artery disease) Hypertension Brother Hypertension Diabetes Other Family history of hypertension Surgical History History of left heart catheterization (08/09/16) History of parathyroid surgery (02/2002) History of tubal ligation History of cholecystectomy H/O aortic valve replacement (12/22/16) Social History Smoking Status: Never smoker alcohol intake: never substance use type: does not use caffeine: Yes Type: tea Number of servings: 2 what type of physical activity do you participate in: walking frequency: 3-4 times per week duration: 15-30 minutes/day seatbelt use: always do you feel safe at home: Yes EXAM Physical Exam Const Vital Signs: 08/01/24 08:20 08/01/24 08:40 08/01/24 08:43 Temperature 97.8 F Temperature Source Oral Pulse Rate 78 Respiratory Rate 20 H Respiratory Effort Respiratory Depth Respiratory Pattern Blood Pressure 190/52 H Blood Pressure Mean 98 Pulse Ox 87 96 93 Oxygen Delivery Method Room Air Nasal Cannula Room Air Oxygen Flow Rate (L/min) 2 08/01/24 09:00 08/01/24 09:09 08/01/24 09:11 Temperature Temperature Source Pulse Rate Respiratory Rate Respiratory Effort Respiratory Depth Respiratory Pattern Blood Pressure Blood Pressure Mean Pulse Ox 90 89 93 Oxygen Delivery Method Room Air Room Air Nasal Cannula Oxygen Flow Rate (L/min) 2 08/01/24 09:11 08/01/24 09:18 08/01/24 09:34 Temperature 97.7 F L Temperature Source Oral Pulse Rate 82 67 Respiratory Rate 16 17 Respiratory Effort Normal Respiratory Depth Normal Respiratory Pattern Normal Normal Blood Pressure 156/79 H Blood Pressure Mean 104 Pulse Ox 94 Oxygen Delivery Method Nasal Cannula Nasal Cannula Oxygen Flow Rate (L/min) 2 2 08/01/24 10:00 08/01/24 11:00 Temperature Temperature Source Pulse Rate 61 65 Respiratory Rate 16 16 Respiratory Effort Respiratory Depth Respiratory Pattern Blood Pressure 173/54 H 166/60 H Blood Pressure Mean 93 95 Pulse Ox 95 95 Oxygen Delivery Method Room Air Oxygen Flow Rate (L/min) MDM MDM MDM Narrative Medical decision making narrative: 83-year-old female with history of severe aortic stenosis, CAD, history of TAVR,CHF presents for evaluation of shortness of breath. Patient states that she hashad continuous shortness of breath since May. Associated symptom is bilaterallower extremity swelling. On chart review, patient saw cardiology on 07/13/2024. They increased her Lasix to 40 mg twice daily and added spironolactone 25 mg daily. She had an echocardiogram on 05/23/2024 showed EF of 65%. Bioprosthetic aortic valve and mean gradient of 11 mmHg. Differential diagnosis includes but is not limited to CHF exacerbation, pneumonia, suspect less likely ACS or PE however in the differential. DuoNeb ordered for symptomatic shortness of breath. On presentation, patient is hypertensive with SBP in the 190s. She is currently on room air without hypoxia. Hydralazine ordered however blood pressure improved without having to be given. Respiratory/cardiac workup ordered. Patient became hypoxic on room air. Placed on 2L nasal cannula. EKG and chest x-ray reviewed see below. Chest x-ray concerning for CHF exacerbation. Patient has anemia with a hemoglobin 11.7. Platelets unremarkable. D-dimer 0.56 however negative per age adjustment. BMP shows hypokalemia of 3. P.o. potassium ordered. No ALLIE. Will add on magnesium level. Magnesium level 1.8. Troponin 23 x 2. BNP elevated 2361. Patient's symptoms are secondary to a CHF exacerbation. IV Lasix ordered. Patient was updated of all the results. Plan is for admission. She confirmed understand the plan. Patient was accepted by the hospitalist service. EKG: Interpreted by me/EM physician: EKG shows normal sinus rhythm with right bundle branch block. Heart rate 67. Diagnostic: Interpreted by me/EM physician: Chest x-ray shows cardiomegaly with vascular congestion, bilateral pleural effusions. Radiology in agreement. Impression: 1. CHF exacerbation 2. Anemia 3. Acute hypoxia requiring oxygen secondary to #1 Lab Data Labs: Laboratory Results - last 24 hr 08/01/24 08/01/24 09:05 11:15 WBC 6.2 RBC 4.21 Hgb 11.7 L Hct 36.6 L MCV 86.9 MCH 27.8 MCHC 32.0 RDW Std Deviation 47.7 H RDW Coeff of Judson 15.0 H Plt Count 197 MPV 11.4 Immature Gran % (Auto) 0.500 Neut % (Auto) 68.2 Lymph % (Auto) 18.8 L Rankin % (Auto) 10.1 H Eos % (Auto) 1.8 Baso % (Auto) 0.6 Absolute Neuts (auto) 4.2 Absolute Lymphs (auto) 1.17 Nucleated RBC % 0 D-Dimer Quant (PE/DVT) 0.56 H* Sodium 144 Potassium 3.0 L Chloride 103 Carbon Dioxide 26.1 Anion Gap 14 BUN 13 Creatinine 0.96 Estim Creat Clear Calc 47.52 L Est GFR (MDRD) Non-Af 59 L BUN/Creatinine Ratio 13.8 Glucose 117 H Calcium 10.2 Magnesium 1.8 Troponin T High Sens 23 H Troponin T Hi Sens 2 Hr 23 H NT pro BNP II 2361 H Radiography Diagnostic Testing: Clinical Impression(s) from Imaging Studies Chest X-Ray 08/01/24 09:15 IMPRESSION: Cardiomegaly and CHF with bibasilar atelectasis and blunting of both costophrenic angles worse at the left lung base. Reading Location: [place] [address] Discharge Plan Disposition Disposition: Acute Care Hospital [facility] Discharge Date/Time: 08/01/24 13:20 What to do if you have Problems For any increased pain, shortness of breath, bleeding, nausea or vomiting, chestpain, or any unexpected problems, contact your Primary Care Provider. Call [facility] ([phone]) or report to the closest Emergency Room. Call 911 if necessary. 08/01/242050 <Electronically signed by Alexis Richardson DO> Cosigner Signature (if applicable): CC: Dr. Pam Mcgill MD ~ Signed [facility] Work Phone: [phone]) 815-293905-28-2025 Discharge summary [facility] Medical Records Department [address] [place] [address] Emergency Department Summary 08/01/24 MR#: [id number] Acct: [id number] Name: FRANK FAIR Rep #:[id number] 15 : 1940 83 From: Alexis Jean Baptiste ggett DO PCP: Dr. Pam Mcgill MD Status:AD M IN Location: [place] [address] HPI History of Present Illness Chief Complaint: Shortness of Breath Narrative Narrative: Chief complaint and HPI: Shortness of breath. Chief complaint and HPI: Shortness of breath. 83-year-old female with history of severe aortic stenosis,CAD, history of TAVR, CHF presents for evaluationof shortness of breath. Patient states that she has had continuous shortness of breath since May.States in May she was diagnosed with pneumonia. States she was treated outpatient with antibiotics. Patient states that she has been having increased swelling in her bilateral lower extremities. States she has been taking her home diuretics. She states that she does not check her daily weight however feels like she has gained some. Shortness of breath is worse with exertion and with lying flat. Patient states that she saw her patient support assistant recently and was referred to pulmonology. Pulmonology is concerned about CHF and sent her here to the emergency department to be evaluated for possible IVLasix. She denies any fever, chills, URI symptoms, chest pain. Denies a history of DVT/PE, blood clotting disorder, recent trauma or surgery, exogenous estrogen use, unilateral leg swelling, known malignancy, travel. Review of systems: See HPI Medications: As listed on the chart Allergies: As listed on the chart PFSH: Per chart Vital signs: As listed on the chart. Reviewed. Physical exam: Gen: A&O x3, NAD Head: Normocephalic, atraumatic Eyes: No sclera icterus, conjunctiva clear ENT: Moist mucous membranes Neck: Trachea midline, No JVD CV: RRR, no murmurs, +2 pitting peripheral edema from the feet to the mid calf Resp: Lungs CTA BL but diminished in the bilateral bases, no w/r/c GI: Abd soft, non-distended, non-tender, no r/r/g Musc: Full ROM, no deformity Skin: Warm, dry Neuro: Alert, oriented, grossly intact, sensation intact Psych: Cooperative, appropriate mood and affect [facility] Medical History Nonrheumatic aortic (valve) stenosis Atherosclerosis of coronary artery of [place] heart without angina pectoris Obesity 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rtery with unstable angina pectoris OPHELIA (obstructive sleep apnea) Essential hypertension Fatigue Family history of hypertension Exertional shortness of breath Exertional chest pain Dyspnea on exertion Dizziness and giddiness Hyperlipidemia Carotid bruit Diabetes mellitus Hypokalemia Home Medications ?Medication ?Instructions ?Recorded ?Last Taken ?Type albuterol sulfate 90 mcg/actuation 1 puff inhalation Q 4H PRN PRN 08/06/16 Unknown History aerosol inhaler Asthma cholecalciferol (vitamin D3) 25 1,000 unit PO DAILY 07/31/24 History mcg (1,000 unit) tablet montelukast 10 mg tablet 10 mg PO DAILY 08/06/1607/06 History omega-3 fatty acids-fish oil 300 1 ea PO DAILY 7 07/31/24 History mg-1,000 mg capsule vitamin A 2,400 mcg capsule 8,000 unit PO DAILY Unknown History vitamin E mixed 1,000 unit capsule 1,000 unit PO DAILY 08/06/16 Unknown History multivitamin 1 tab PO DAILY 02/16/1707/06 History aspirin 81 mg tablet,delayed 81 mg PO DAILY@0800 #90 t abs 02/11/22 08/01/24 Rx release zinc gluconate 50 mg tablet 50 mg PO DAILY 02/11/22 Un known History lisinopril 40 mg tablet 40 mg PO DAILY #90 tabs 01/0608/01/24 Rx ezetimibe 10 mg tablet (Zetia) 10 mg PO DAILY #90 tabs 04/12/24 08/01/24 Rx furosemide 40 mg tablet 40 mg PO DAILY #90 tabs 08/2908/01/24 Rx cetirizine 10 mg tablet 10 mg PO QDAY PRN allergy sy mptoms 04/17/24 07/31/24 History magnesium 250 mg tablet 250 mg PO DAILY 04/17/24 History rosuvastatin 5 mg tablet 5 mg PO DAILY 04/17/2407/30 History diphenhydramine HCl 25 mg capsule 25 mg PO QHS PRN all ergic reaction 07/05/24 07/31/24 History (Benadryl) fluticasone propionate 50 2 spray intranasal DAILY PRN 07/05/24 08/01/24 History mcg/actuation nasal allergy symptoms spray,suspension (Flonase Allergy Relief) levothyroxine 137 mcg tablet 137 mcg PO QDAY 07/05/24 08/01/24 History (Synthroid) turmeric root extract 500 mg 500 mg PO QDAY 07/05/24 U nknown History capsule amlodipine 5 mg tablet 5 mg PO DAILY #90 tabs 07/1308/01/24 Rx carvedilol 25 mg tablet 25 mg PO BID #180 tabs 07/3108/01/24 Rx spironolactone 25 mg tablet 25 mg PO DAILY #90 tabs 08/01/24 Rx fluticasone propionate 115 2 puff inhalation BID 08/0108/01/24 History mcg-salmeterol 21 mcg/actuation HFA inhaler (Advair HFA) Allergy/AdvReac Type Severity Reaction Status Date / Time Environmental Allergies: Allergy Anaphylaxis Verified 08/01/24 08:22 Uncoded rosuvastatin (From Crestor) AdvReac Intermediate Myalgias Verified 08/01/24 08:22 nifedipine AdvReac Unknown Verified 08/01/24 08:22 simvastatin (From Zocor) AdvReac Myalgias Verified 08/01/24 08:22 Family History Father , age 70 Colon cancer Mother , age 67 CAD (coronary artery disease) Hypertension Brother , age 59 CAD (coronary artery disease) Hypertension Brother Hypertension Diabetes Other Family history of hypertension Surgical History History of left heart catheterization (08/09/16) History of parathyroid surgery (02/2002) History of tubal ligation History of cholecystectomy H/O aortic valve replacement (12/22/16) Social History Smoking Status: Never smoker alcohol intake: never substance use type: does not use caffeine: Yes Type: tea Number of servings: 2 what type of physical activity do you participate in: walking frequency: 3-4 times per week duration: 15-30 minutes/day seatbelt use: always do you feel safe at home: Yes EXAM Physical Exam Const Vital Signs: 08/01/24 08:20 08/01/24 08:40 08/01/24 08:43 Temperature 97.8 F Temperature Source Oral Pulse Rate 78 Respiratory Rate 20 H Respiratory Effort Respiratory Depth Respiratory Pattern Blood Pressure 190/52 H Blood Pressure Mean 98 Pulse Ox 87 96 93 Oxygen Delivery Method Room Air Nasal Cannula Room Air Oxygen Flow Rate (L/min) 2 08/01/24 09:00 08/01/24 09:09 08/01/24 09:11 Temperature Temperature Source Pulse Rate Respiratory Rate Respiratory Effort Respiratory Depth Respiratory Pattern Blood Pressure Blood Pressure Mean Pulse Ox 90 89 93 Oxygen Delivery Method Room Air Room Air Nasal Cannula Oxygen Flow Rate (L/min) 2 08/01/24 09:11 08/01/24 09:18 08/01/24 09:34 Temperature 97.7 F L Temperature Source Oral Pulse Rate 82 67 Respiratory Rate 16 17 Respiratory Effort Normal Respiratory Depth Normal Respiratory Pattern Normal Normal Blood Pressure 156/79 H Blood Pressure Mean 104 Pulse Ox 94 Oxygen Delivery Method Nasal Cannula Nasal Cannula Oxygen Flow Rate (L/min) 2 2 08/01/24 10:00 08/01/24 11:00 Temperature Temperature Source Pulse Rate 61 65 Respiratory Rate 16 16 Respiratory Effort Respiratory Depth Respiratory Pattern Blood Pressure 173/54 H 166/60 H Blood Pressure Mean 93 95 Pulse Ox 95 95 Oxygen Delivery Method Room Air Oxygen Flow Rate (L/min) MDM MDM MDM Narrative Medical decision making narrative: 83-year-old female with history of severe aortic stenosis, CAD, history of TAVR,CHF presents for evaluation of shortness of breath. Patient states that she hashad continuous shortness of breath sinceMarch. Associated symptom is bilaterallower extremity swelling. On chart review, patient saw cardiology on 07/13/2024. They increased her Lasix to 40 mg twice daily and added spironolactone 25 mg daily. She had an echocardiogram on 05/23/2024 showed EF of 65%. Bioprosthetic aortic valve and mean gradient of 11 mmHg. Differential diagnosis includes but is not limited to CHF exacerbation, pneumonia, suspect less likely ACS or PE however in the differential. DuoNeb ordered for symptomatic shortness of breath. On presentation, patient is hypertensive with SBP in the 190s. She is currently on room air without hypoxia. Hydralazine ordered however blood pressure improved without having to be given. Respiratory/cardiac workup ordered. Patient became hypoxic on room air. Placed on 2L nasal cannula. EKG and chest x-ray reviewed see below. Chest x-ray concerning for CHF exacerbation. Patient has anemia with a hemoglobin 11.7. Platelets unremarkable. D-dimer 0.56 however negative per age adjustment.BMP shows hypokalemia of 3. P.o. potassium ordered. No ALLIE. Will add on magnesium level. Magnesium level 1.8. Troponin 23 x 2. BNP elevated 2361. Patient's symptoms are secondary to a CHF exacerbation. IV Lasix ordered. Patient was updated of all the results. Plan is for admission. She confirmed understand the plan. Patient was accepted by the hospitalist service. EKG: Interpreted by me/EM physician: EKG shows normal sinus rhythm with right bundle branch block. Heartrate 67. Diagnostic: Interpreted by me/EM physician: Chest x-ray shows cardiomegaly with vascular congestion, bilateral pleural effusions. Radiology in agreement. Impression: 1. CHF exacerbation 2. Anemia 3. Acute hypoxia requiring oxygen secondary to #1 Lab Data Labs: Laboratory Results - last 24 hr 08/01/24 08/01/24 09:05 11:15 WBC 6.2 RBC 4.21 Hgb 11.7 L Hct 36.6 L MCV 86.9 MCH 27.8 MCHC 32.0 RDW Std Deviation 47.7 H RDW Coeff of Judson 15.0 H Plt Count 197 MPV 11.4 Immature Gran % (Auto) 0.500 Neut % (Auto) 68.2 Lymph % (Auto) 18.8 L Rankin % (Auto) 10.1 H Eos % (Auto) 1.8 Baso % (Auto) 0.6 Absolute Neuts (auto) 4.2 Absolute Lymphs (auto) 1.17 Nucleated RBC % 0 D-Dimer Quant (PE/DVT) 0.56 H* Sodium 144 Potassium 3.0 L Chloride 103 Carbon Dioxide 26.1 Anion Gap 14 BUN 13 Creatinine 0.96 Estim Creat Clear Calc 47.52 L Est GFR (MDRD) Non-Af 59 L BUN/Creatinine Ratio 13.8 Glucose 117 H Calcium 10.2 Magnesium 1.8 Troponin T High Sens 23 H Troponin T Hi Sens 2 Hr 23 H NT pro BNP II 2361 H Radiography Diagnostic Testing: Clinical Impression(s) from Imaging Studies Chest X-Ray 08/01/24 09:15 IMPRESSION: Cardiomegaly and CHF with bibasilar atelectasis and blunting of both costophrenic angles worse at the left lung base. Reading Location: [facility]- Discharge Plan Disposition Disposition: Acute Care Hospital [facility] Discharge Date/Time: 08/01/24 13:20 What to do if you have Problems For any increased pain, shortness of breath, bleeding, nausea or vomiting, chestpain, or any unexpected problems, contact your Primary Care Provider. Call [facility] ([phone]) or report tothe closest Emergency Room. Call 911 if necessary. 08/01/242050 Cosigner Signature (if applicable): CC: Dr. Pam Mcgill MD ~ Signed [facility]05-28-2025 History and physical note Author Nahun Diaz [facility] Note Date/Time August 01, 2024 1:58p m [facility] Medical Records Department [address] [place] [address] H&P Exam - Hospitalist 08/01/24 1159 MR#: [id number] Acct: [id number] Name: FRANK FAIR Rep #:[id number] : 1940 83 From: Nahun Diaz MD PCP: Dr. Pam Mcgill MD Status:AD M IN Location: [facility] [id number] HPI - General General Date of Admission: 08/01/24 Date of Service: 08/01/24 Chief Complaint: Shortness of breath HPI Narrative FRANK FAIR, is a 83 F with past medical history seen in for coronary artery disease, severe aortic stenosis status post TAVR who presented with progressive shortness of breath. Per patient symptoms have been ongoing for the past coupleof months. She reports shortness of breath with minimal activity as well as progressive swelling involving both lower extremities. 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 Imaging studies obtained in the ED demonstrated cardiomegaly and CHF with bibasilar atelectasis and blunting of both costophrenic angles with at the left angle base. Patient was also found to have markedly elevated proBNP. An assessment of acute congestive heart failure made admitted to monitored bed for subsequent management [facility] Medical History Nonrheumatic aortic (valve) stenosis Atherosclerosis of coronary artery of [place] heart without angina pectoris Obesity 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rtery with unstable angina pectoris OPHELIA (obstructive sleep apnea) Essential hypertension Fatigue Family history of hypertension Exertional shortness of breath Exertional chest pain Dyspnea on exertion Dizziness and giddiness Hyperlipidemia Carotid bruit Diabetes mellitus Hypokalemia Home Medications ?Medication ?Instructions ?Recorded ?Last Taken ?Type albuterol sulfate 90 mcg/actuation 1 puff inhalation Q 4H PRN PRN 08/06/16 Unknown History aerosol inhaler Asthma cholecalciferol (vitamin D3) 25 1,000 unit PO DAILY 07/31/24 History mcg (1,000 unit) tablet montelukast 10 mg tablet 10 mg PO DAILY 08/06/1607/06 History omega-3 fatty acids-fish oil 300 1 ea PO DAILY 7 07/31/24 History mg-1,000 mg capsule vitamin A 2,400 mcg capsule 8,000 unit PO DAILY Unknown History vitamin E mixed 1,000 unit capsule 1,000 unit PO DAILY 08/06/16 Unknown History multivitamin 1 tab PO DAILY 02/16/1707/06 History aspirin 81 mg tablet,delayed 81 mg PO DAILY@0800 #90 t abs 02/11/22 08/01/24 Rx release zinc gluconate 50 mg tablet 50 mg PO DAILY 02/11/22 Un known History lisinopril 40 mg tablet 40 mg PO DAILY #90 tabs 01/0608/01/24 Rx ezetimibe 10 mg tablet (Zetia) 10 mg PO DAILY #90 tabs 04/12/24 08/01/24 Rx furosemide 40 mg tablet 40 mg PO DAILY #90 tabs 08/2908/01/24 Rx cetirizine 10 mg tablet 10 mg PO QDAY PRN allergy sy mptoms 04/17/24 07/31/24 History magnesium 250 mg tablet 250 mg PO DAILY 04/17/24 History rosuvastatin 5 mg tablet 5 mg PO DAILY 04/17/2407/30 History diphenhydramine HCl 25 mg capsule 25 mg PO QHS PRN all ergic reaction 07/05/24 07/31/24 History (Benadryl) fluticasone propionate 50 2 spray intranasal DAILY PRN 07/05/24 08/01/24 History mcg/actuation nasal allergy symptoms spray,suspension (Flonase Allergy Relief) levothyroxine 137 mcg tablet 137 mcg PO QDAY 07/05/24 08/01/24 History (Synthroid) turmeric root extract 500 mg 500 mg PO QDAY 07/05/24 U nknown History capsule amlodipine 5 mg tablet 5 mg PO DAILY #90 tabs 07/1308/01/24 Rx carvedilol 25 mg tablet 25 mg PO BID #180 tabs 07/3108/01/24 Rx spironolactone 25 mg tablet 25 mg PO DAILY #90 tabs 08/01/24 Rx fluticasone propionate 115 2 puff inhalation BID 08/0108/01/24 History mcg-salmeterol 21 mcg/actuation HFA inhaler (Advair HFA) Allergy/AdvReac Type Severity Reaction Status Date / Time Environmental Allergies: Allergy Anaphylaxis Verified 08/01/24 08:22 Uncoded rosuvastatin (From Crestor) AdvReac Intermediate Myalgias Verified 08/01/24 08:22 nifedipine AdvReac Unknown Verified 08/01/24 08:22 simvastatin (From Zocor) AdvReac Myalgias Verified 08/01/24 08:22 Family History Father , age 70 Colon cancer Mother , age 67 CAD (coronary artery disease) Hypertension Brother , age 59 CAD (coronary artery disease) Hypertension Brother Hypertension Diabetes Other Family history of hypertension Surgical History History of left heart catheterization (08/09/16) History of parathyroid surgery (02/2002) History of tubal ligation History of cholecystectomy H/O aortic valve replacement (12/22/16) Social History Smoking Status: Never smoker alcohol intake: never substance use type: does not use caffeine: Yes Type: tea Number of servings: 2 what type of physical activity do you participate in: walking frequency: 3-4 times per week duration: 15-30 minutes/day seatbelt use: always do you feel safe at home: Yes ROS ROS Narrative GENERAL: denies fever, chills, night sweats, HEENT: denies headache, sinus congestion, RESPIRATORY: production, shortness of breath, dyspnea on exertion CARDIAC: , orthopnea, PND GASTROINTESTINAL: denies abdominal pain, nausea, GENITOURINARY: denies dysuria, urgency, frequency, heamaturia EXTREMITY: denies swelling MUSCULOSKELETAL: denies current joint pain or tenderness NEUROLOGIC: denies focal numbness, weakness, tingling HEMATOLOGIC: denies easy bruising and/or hemorrhage INTEGUMENT: denies rashes PSYCHIATRIC: denies suicidal or homicidal ideation Vital Signs Vital Signs Vital Signs: 08/01/24 08:20 08/01/24 08:40 08/01/24 08:43 Temperature 97.8 F Temperature Source Oral Pulse Rate 78 Respiratory Rate 20 H Respiratory Effort Respiratory Depth Respiratory Pattern Blood Pressure 190/52 H Blood Pressure Mean 98 Pulse Ox 87 96 93 Oxygen Delivery Method Room Air Nasal Cannula Room Air Oxygen Flow Rate (L/min) 2 08/01/24 09:00 08/01/24 09:09 08/01/24 09:11 Temperature Temperature Source Pulse Rate Respiratory Rate Respiratory Effort Respiratory Depth Respiratory Pattern Blood Pressure Blood Pressure Mean Pulse Ox 90 89 93 Oxygen Delivery Method Room Air Room Air Nasal Cannula Oxygen Flow Rate (L/min) 2 08/01/24 09:11 08/01/24 09:18 08/01/24 09:34 Temperature 97.7 F L Temperature Source Oral Pulse Rate 82 67 Respiratory Rate 16 17 Respiratory Effort Normal Respiratory Depth Normal Respiratory Pattern Normal Normal Blood Pressure 156/79 H Blood Pressure Mean 104 Pulse Ox 94 Oxygen Delivery Method Nasal Cannula Nasal Cannula Oxygen Flow Rate (L/min) 2 2 08/01/24 10:00 08/01/24 11:00 Temperature Temperature Source Pulse Rate 61 65 Respiratory Rate 16 16 Respiratory Effort Respiratory Depth Respiratory Pattern Blood Pressure 173/54 H 166/60 H Blood Pressure Mean 93 95 Pulse Ox 95 95 Oxygen Delivery Method Room Air Oxygen Flow Rate (L/min) Weight Weight: 95.481 kg Body Mass Index (BMI) 41.1 Physical Exam Narrative GENERAL: cooperative HEENT: Atraumatic; normocephalic EYES; Anicteric, Normal Conjunctiva NECK; supple, normal thyroid, RESPIRATORY: Diminished to auscultation CARDIOVASCULAR: Regular S1 S2, GI: soft, normoactive bowel sounds, : No Renal angle tenderness; EXTREMITIES: Bipedal edema MUSCULOSKELETAL: no muscle wasting NEURO: Awake; no lateralizing signs. SKIN: No Rash PSYCH; Flat affect Results Lab / Micro Data 08/01/24 09:05 08/01/24 09:05 Labs: Laboratory Results - last 24 hr 08/01/24 09:05: WBC 6.2, RBC 4.21, Hgb 11.7 L, Hct 36.6 L, MCV 86.9, MCH 27.8, MCHC 32.0, RDW Std Deviation 47.7 H, RDW Coeff of Judson 15.0 H, Plt Count 197, MPV11.4, Immature Gran % (Auto) 0.500, Neut % (Auto) 68.2, Lymph % (Auto) 18.8 L, Rankin % (Auto) 10.1 H, Eos % (Auto) 1.8, Baso % (Auto) 0.6, Absolute Neuts (auto) 4.2, Absolute Lymphs (auto) 1.17, Nucleated RBC % 0, D-Dimer Quant (PE/DVT) 0.56H*, Sodium 144, Potassium 3.0 L, Chloride 103, Carbon Dioxide 26.1, Anion Gap 14, BUN 13, Creatinine 0.96, Estim Creat Clear Calc 47.52 L, Est GFR (MDRD) Non-Af 59 L, BUN/Creatinine Ratio 13.8, Glucose 117 H, Calcium 10.2, Troponin T HighSens 23 H, NT pro BNP II 2361 H 08/01/24 11:15: Troponin T Hi Sens 2 Hr 23 H Imaging Radiology Impression Chest X-Ray 08/01/24 09:15 IMPRESSION: Cardiomegaly and CHF with bibasilar atelectasis and blunting of both costophrenic angles worse at the left lung base. Reading Location: [facility]-1 Assessment & Plan Assessment/Plan (1) Shortness of breath: PLAN: Plan Patient is an 83-year-old lady admitted with progressive shortness of breath imaging studies demonstrated features consistent with congestive heart failure. Admitted to a monitored bed for further management 1. Acute congestive heart failure with suspected preserved ejection fraction ? Patient admitted to a monitored bed treatment initiated with strict input and output, daily weight, low-sodium diet, fluid restriction and diuretic therapy with furosemide. As part of evaluation ordered 2D echo for LVEF assessment 2. Acute hypoxia Secondary to above patient placed on supplemental oxygen titrated to keep saturation greater than 90 3. Valvular heart disease ? With history of TAVR at [facility] in 2017 4. Class III obesity with BMI of 40.6 ? Complicating care, weight loss advised 5. Dyslipidemia ? Patient is on Zetia did continue 6. Allergic rhinitis ? Patient is on fluticasone discontinued home dose 7.Mild coronary artery disease ? Patient did not present with any anginal symptoms we will continue with monitoring 8. Diabetes mellitus type 2 ? Listed on patient history currently not on any therapeutics we will continue with monitoring 9. Obstructive sleep apnea ? Consistent use of PAP therapy encouraged 10. Hypokalemia ? Secondary to patient being on furosemide. Corrected low potassium per protocol repeat potassium levels ordered in a.m. for subsequent eval 11. Anemia ? Secondary to chronic disorder monitoring H&H and transfuse if patient becomes symptomatic or hemoglobin falls below 7 12. DVT prophylaxis ? Subcu heparin Advance planning; did discuss with the patient regarding advanced directives aswell as CODE STATUS. Did explain the various scenarios involved ( FULL CODE, DNR CCA, DNR CCA with no intubation, and DNR CC and what each meant) patient elected to remain full code with CPR and intubation if warranted. Order was placed. Time spent on discussion 16 minutes. Charges/Coding Multi Select Codes Visit Charges Visit Charges: 71732 Init Hosp Hospitalists' Procedures Procedures: 99303 Advncd Care Plan 30 Min 08/01/24 6767 <Electronically signed by Nahun Diaz MD> Cosigner Signature (if applicable): CC: Dr. Nahun Diaz MD; Dr. Pam Mcgill MD~ Signed [facility] Work Phone: [phone]) 886-715905-28-2025 Telephone encounter Note* Telephone Encounter - Isabell Diaz LPN - 08/01/2024 2:35 PM EDT Patient admitted to [facility] Isabell Diaz LPN [facility]05-28-2025 Miscellaneous Notes* Telephone Encounter - Isabell Diaz LPN - 08/01/2024 2:35 PM EDT Patient admitted to [facility] Isabell Diaz LPN * Telephone Encounter - Isabell Diaz LPN - 07/31/2024 4:17 PM EDT Per 07/20 TC with EB- Patient's recent CXR on 07/20 consistent with CHF and BNP >1900. She did notcontact cardiology until today,. Advised patient her low O2 sats could be related to CHF and are not consistent with typical nocturnal hypoxemia. I advised she be evaluated in the emergency department. Isabell Diaz LPN * Telephone Encounter - Veronica Chawla LPN - 07/31/2024 3:56 PM EDT Patient calling c/o O2 saturations is dropping in the mornings. Patient stated that her oxygen levels are 80-81 when she wakes up. Near lunch O2 sats go up to high 80's then after lunch in the 90's. Patient doses use her CPAP machine every night. That machine comes from [facility]. [facility]. Patient does have inahlers, no nebulizers. Patient is wanting to know if she is needing oxygen for the bedtime? Please review and advise further. Veronica Chawla LPN [facility] History and physical note [facility] Medical Records Department [address] [place] [address] H&P Exam - Hospitalist 08/01/24 1159 MR#: [id number] Acct: [id number] Name: FRANK FAIR Rep #:[id number] : 1940 83 From: Nahun Diaz MD PCP: Dr. Pam Mcgill MD Status:AD M IN Location: [place] [address] HPI - General General Date of Admission: 08/01/24 Date of Service: 08/01/24 Chief Complaint: Shortness of breath HPI Narrative FRANK FAIR, is a 83 F with past medical history seen in for coronary artery disease, severe aorticstenosis status post TAVR who presented with progressive shortness of breath. Per patient symptoms have been ongoing for the past coupleof months. She reports shortness of breath with minimal activity as well as progressive swelling involving both lower extremities. 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 Imaging studies obtained in the ED demonstrated cardiomegaly and CHF with bibasilar atelectasis and blunting of both costophrenic angles with at the left angle base. Patient was also found to have markedly elevated proBNP. An assessment of acute congestive heart failure made admitted to monitored bed for subsequent management [facility] Medical History Nonrheumatic aortic (valve) stenosis Atherosclerosis of coronary artery of [place] heart without angina pectoris Obesity 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rtery with unstable angina pectoris OPHELIA (obstructive sleep apnea) Essential hypertension Fatigue Family history of hypertension Exertional shortness of breath Exertional chest pain Dyspnea on exertion Dizziness and giddiness Hyperlipidemia Carotid bruit Diabetes mellitus Hypokalemia Home Medications ?Medication ?Instructions ?Recorded ?Last Taken ?Type albuterol sulfate 90 mcg/actuation 1 puff inhalation Q 4H PRN PRN 08/06/16 Unknown History aerosol inhaler Asthma cholecalciferol (vitamin D3) 25 1,000 unit PO DAILY 07/31/24 History mcg (1,000 unit) tablet montelukast 10 mg tablet 10 mg PO DAILY 08/06/1607/06 History omega-3 fatty acids-fish oil 300 1 ea PO DAILY 7 07/31/24 History mg-1,000 mg capsule vitamin A 2,400 mcg capsule 8,000 unit PO DAILY Unknown History vitamin E mixed 1,000 unit capsule 1,000 unit PO DAILY 08/06/16 Unknown History multivitamin 1 tab PO DAILY 02/16/1707/06 History aspirin 81 mg tablet,delayed 81 mg PO DAILY@0800 #90 t abs 02/11/22 08/01/24 Rx release zinc gluconate 50 mg tablet 50 mg PO DAILY 02/11/22 Un known History lisinopril 40 mg tablet 40 mg PO DAILY #90 tabs 01/0608/01/24 Rx ezetimibe 10 mg tablet (Zetia) 10 mg PO DAILY #90 tabs 04/12/24 08/01/24 Rx furosemide 40 mg tablet 40 mg PO DAILY #90 tabs 08/2908/01/24 Rx cetirizine 10 mg tablet 10 mg PO QDAY PRN allergy sy mptoms 04/17/24 07/31/24 History magnesium 250 mg tablet 250 mg PO DAILY 04/17/24 History rosuvastatin 5 mg tablet 5 mg PO DAILY 04/17/2407/30 History diphenhydramine HCl 25 mg capsule 25 mg PO QHS PRN all ergic reaction 07/05/24 07/31/24 History (Benadryl) fluticasone propionate 50 2 spray intranasal DAILY PRN 07/05/24 08/01/24 History mcg/actuation nasal allergy symptoms spray,suspension (Flonase Allergy Relief) levothyroxine 137 mcg tablet 137 mcg PO QDAY 07/05/24 08/01/24 History (Synthroid) turmeric root extract 500 mg 500 mg PO QDAY 07/05/24 U nknown History capsule amlodipine 5 mg tablet 5 mg PO DAILY #90 tabs 07/1308/01/24 Rx carvedilol 25 mg tablet 25 mg PO BID #180 tabs 05/27 /25 05/28/25 Rx spironolactone 25 mg tablet 25 mg PO DAILY #90 tabs 08/01/24 Rx fluticasone propionate 115 2 puff inhalation BID 08/0108/01/24 History mcg-salmeterol 21 mcg/actuation HFA inhaler (Advair HFA) Allergy/AdvReac Type Severity Reaction Status Date / Time Environmental Allergies: Allergy Anaphylaxis Verified 08/01/24 08:22 Uncoded rosuvastatin (From Crestor) AdvReac Intermediate Myalgias Verified 08/01/24 08:22 nifedipine AdvReac Unknown Verified 08/01/24 08:22 simvastatin (From Zocor) AdvReac Myalgias Verified 08/01/24 08:22 Family History Father , age 70 Colon cancer Mother , age 67 CAD (coronary artery disease) Hypertension Brother , age 59 CAD (coronary artery disease) Hypertension Brother Hypertension Diabetes Other Family history of hypertension Surgical History History of left heart catheterization (08/09/16) History of parathyroid surgery (02/2002) History of tubal ligation History of cholecystectomy H/O aortic valve replacement (12/22/16) Social History Smoking Status: Never smoker alcohol intake: never substance use type: does not use caffeine: Yes Type: tea Number of servings: 2 what type of physical activity do you participate in: walking frequency: 3-4 times per week duration: 15-30 minutes/day seatbelt use: always do you feel safe at home: Yes ROS ROS Narrative GENERAL: denies fever, chills, night sweats, HEENT: denies headache, sinus congestion, RESPIRATORY: production, shortness of breath, dyspnea on exertion CARDIAC: , orthopnea, PND GASTROINTESTINAL: denies abdominal pain, nausea, GENITOURINARY: denies dysuria, urgency, frequency, heamaturia EXTREMITY: denies swelling MUSCULOSKELETAL: denies current joint pain or tenderness NEUROLOGIC: denies focal numbness, weakness, tingling HEMATOLOGIC: denies easy bruising and/or hemorrhage INTEGUMENT: denies rashes PSYCHIATRIC: denies suicidal or homicidal ideation Vital Signs Vital Signs Vital Signs: 08/01/24 08:20 08/01/24 08:40 08/01/24 08:43 Temperature 97.8 F Temperature Source Oral Pulse Rate 78 Respiratory Rate 20 H Respiratory Effort Respiratory Depth Respiratory Pattern Blood Pressure 190/52 H Blood Pressure Mean 98 Pulse Ox 87 96 93 Oxygen Delivery Method Room Air Nasal Cannula Room Air Oxygen Flow Rate (L/min) 2 08/01/24 09:00 08/01/24 09:09 08/01/24 09:11 Temperature Temperature Source Pulse Rate Respiratory Rate Respiratory Effort Respiratory Depth Respiratory Pattern Blood Pressure Blood Pressure Mean Pulse Ox 90 89 93 Oxygen Delivery Method Room Air Room Air Nasal Cannula Oxygen Flow Rate (L/min) 2 08/01/24 09:11 08/01/24 09:18 08/01/24 09:34 Temperature 97.7 F L Temperature Source Oral Pulse Rate 82 67 Respiratory Rate 16 17 Respiratory Effort Normal Respiratory Depth Normal Respiratory Pattern Normal Normal Blood Pressure 156/79 H Blood Pressure Mean 104 Pulse Ox 94 Oxygen Delivery Method Nasal Cannula Nasal Cannula Oxygen Flow Rate (L/min) 2 2 08/01/24 10:00 08/01/24 11:00 Temperature Temperature Source Pulse Rate 61 65 Respiratory Rate 16 16 Respiratory Effort Respiratory Depth Respiratory Pattern Blood Pressure 173/54 H 166/60 H Blood Pressure Mean 93 95 Pulse Ox 95 95 Oxygen Delivery Method Room Air Oxygen Flow Rate (L/min) Weight Weight: 95.481 kg Body Mass Index (BMI) 41.1 Physical Exam Narrative GENERAL: cooperative HEENT: Atraumatic; normocephalic EYES; Anicteric, Normal Conjunctiva NECK; supple, normal thyroid, RESPIRATORY: Diminished to auscultation CARDIOVASCULAR: Regular S1 S2, GI: soft, normoactive bowel sounds, : No Renal angle tenderness; EXTREMITIES: Bipedal edema MUSCULOSKELETAL: no muscle wasting NEURO: Awake; no lateralizing signs. SKIN: No Rash PSYCH; Flat affect Results Lab / Micro Data 08/01/24 09:05 08/01/24 09:05 Labs: Laboratory Results - last 24 hr 08/01/24 09:05: WBC 6.2, RBC 4.21, Hgb 11.7 L, Hct 36.6 L, MCV 86.9, MCH 27.8, MCHC 32.0, RDW Std Deviation 47.7 H, RDW Coeff of Judson 15.0 H, Plt Count 197, MPV11.4, Immature Gran % (Auto) 0.500, Neut% (Auto) 68.2, Lymph % (Auto) 18.8 L, Rankin % (Auto) 10.1 H, Eos % (Auto) 1.8, Baso % (Auto) 0.6, Absolute Neuts (auto) 4.2, Absolute Lymphs (auto) 1.17, Nucleated RBC % 0, D-Dimer Quant (PE/DVT) 0.56H*, Sodium 144, Potassium 3.0 L, Chloride 103, Carbon Dioxide 26.1, Anion Gap 14, BUN 13, Creatinine0.96, Estim Creat Clear Calc 47.52 L, Est GFR (MDRD) Non-Af 59 L, BUN/Creatinine Ratio 13.8, Glucose 117 H, Calcium 10.2, Troponin T HighSens 23 H, NT pro BNP II 2361 H 08/01/24 11:15: Troponin T Hi Sens 2 Hr 23 H Imaging Radiology Impression Chest X-Ray 08/01/24 09:15 IMPRESSION: Cardiomegaly and CHF with bibasilar atelectasis and blunting of both costophrenic angles worse at the left lung base. Reading Location: [facility]-1 Assessment & Plan Assessment/Plan (1) Shortness of breath: PLAN: Plan Patient is an 83-year-old lady admitted with progressive shortness of breath imaging studies demonstrated features consistent with congestive heart failure. Admitted to a monitored bed for further management 1. Acute congestive heart failure with suspected preserved ejection fraction ? Patient admitted to a monitored bed treatment initiated with strict input and output, daily weight, low-sodium diet, fluid restriction and diuretic therapy with furosemide. As part of evaluation ordered 2D echo for LVEF assessment 2. Acute hypoxia Secondary to above patient placed on supplemental oxygen titrated to keep saturation greater than 90 3. Valvular heart disease ? With history of TAVR at [facility] in 2017 4. Class III obesity with BMI of 40.6 ? Complicating care, weight loss advised 5. Dyslipidemia ? Patient is on Zetia did continue 6. Allergic rhinitis ? Patient is on fluticasone discontinued home dose 7.Mild coronary artery disease ? Patient did not present with any anginal symptoms we will continue with monitoring 8. Diabetes mellitus type 2 ? Listed on patient history currently not on any therapeutics we will continue with monitoring 9. Obstructive sleep apnea ? Consistent use of PAP therapy encouraged 10. Hypokalemia ? Secondary to patient being on furosemide. Corrected low potassium per protocol repeat potassium levels ordered in a.m. for subsequent eval 11. Anemia ? Secondary to chronic disorder monitoring H&H and transfuse if patient becomes symptomatic or hemoglobin falls below 7 12. DVT prophylaxis ? Subcu heparin Advance planning; did discuss with the patient regarding advanced directives aswell as CODE STATUS.Did explain the various scenarios involved ( FULL CODE, DNR CCA, DNR CCA with no intubation, and DNR CC and what each meant) patient elected to remain full code with CPR and intubation if warranted. Order was placed. Time spent on discussion 16 minutes. Charges/Coding Multi Select Codes Visit Charges Visit Charges: 28240 Init [facility]osp Hospitalists' Procedures Procedures: 42450 Advncd Care Plan 30 Min 08/01/24 1358 Cosigner Signature (if applicable): CC: Dr. Nahun Diaz MD; Dr. Pam Mcgill MD~ Signed [facility]05-28-2025 Radiology Diagnostic study note [facility] Imaging Services [address] [place] [address] Chest PA and Lateral MR#: [id number] Acct: [id number] Name: FRANK FAIR Rep #: [id number] F 83 From: Venkat Durand MD PCP: Dr. Pam Mcgill MD Status: RE G ER Study:Chest PA and Lateral Date of Exam: 08/01/24 Exam# [id number] Ordering Dr: Alexis Tolliver DO PROCEDURE: CHEST PA AND LATERAL 08/01/2024 REASON FOR EXAM: SHORTNESS OF BREATH TECHNIQUE: Frontal and lateral views of the chest. COMPARISON: July 05, 2024. FINDINGS: Hardware: EKG electrodes are seen. Heart: Heart size is moderately enlarged. Atherosclerotic calcification of the aortic arch. Mediastinum: The mediastinal contour is unremarkable. Lungs: Vascular congestion and mild CHF. Blunting of both costophrenic angles worse on the left side with bibasilar atelectasis. Bones: Degenerative changes are identified within the thoracic spine. RAD/Chest PA and Lateral IMPRESSION: Cardiomegaly and CHF with bibasilar atelectasis and blunting of both costophrenic angles worse at the left lung base. Reading Location: [facility] CC: Dr. Alexis Delgado-Darlin DO; Dr. Pam Mcgill MD ~ Retail Department Supervisor: Signed [facility]05-27-2025 Telephone encounter Note* Telephone Encounter - Isabell Diaz LPN - 07/31/2024 4:17 PM EDT Per 07/20 TC with EB- Patient's recent CXR on 07/20 consistent with CHF and BNP >1900. She did notcontact cardiology until today,. Advised patient her low O2 sats could be related to CHF and are not consistent with typical nocturnal hypoxemia. I advised she be evaluated in the emergency department. Isabell Diaz LPN [facility]05-27-2025 Telephone encounter Note* Telephone Encounter - Veronica Chawla LPN - 07/31/2024 3:56 PM EDT Patient calling c/o O2 saturations is dropping in the mornings. Patient stated that her oxygen levels are 80-81 when she wakes up. Near lunch O2 sats go up to high 80's then after lunch in the 90's. Patient doses use her CPAP machine every night. That machine comes from [facility]. Pharmacy is [facility]. Patient does have inahlers, no nebulizers. Patient is wanting to know if she is needing oxygen for the bedtime? Please review and advise further. Veronica Chawla LPN [facility]05-16-2025 Telephone encounter Note* Telephone Encounter - Mariya Mcadams MD - 07/20/2024 12:07 PM EDT Spoke with Jarred regarding recent testing and chest x-ray. Findings consistent with mild CHF. Patient is already on 40 of Lasix daily. Recommended she contact her patient support assistant for medication adjustment. [facility]05-16-2025 Miscellaneous Notes* Telephone Encounter - Mariya Mcadams MD - 07/20/2024 12:07 PM EDT Spoke with Jarred regarding recent testing and chest x-ray. Findings consistent with mild CHF. Patient is already on 40 of Lasix daily. Recommended she contact her patient support assistant for medication adjustment. [facility] Telephone encounter Note * Telephone Encounter - Yelena Canas MA - 07/19/2024 10:47 AM EDT Pended. [facility]05-15-2025 Miscellaneous Notes* Telephone Encounter - Yelena Canas MA - 07/19/2024 10:47 AM EDT Pended. * Telephone Encounter - She Marley - 07/19/2024 10:30 AM EDT Pt needs prescription changed to [facility] [place] due to [facility] going ouit of business, please advise [facility] Telephone encounter Note * Telephone Encounter - She Marley - 07/19/2024 10:30 AM EDT Pt needs prescription changed to [facility] [place] due to [facility] going o[facility] of business, please advise [facility]05-15-2025 History of Present illness Narrative* Mindi Ellis RT(R) - 07/19/2024 9:00 AM EDT Radiology Service Progress Note PATIENT NAME: Jarred Fair DATE OF SERVICE: July 19, 2024 TIME: 9:02 AM PATIENT IDENTITY VERIFICATION COMPLETED USING TWO (2) IDENTIFIERS: Name and Date of confirmedby patient verbally. FALL SCREENING: Has the patient had 2 falls in the last year or 1 fall with injury or currently using an Ambulatory Assistive Device (Walker, Cane, Wheelchair, Crutches, etc.)? No PATIENT GENDER DATA: Assigned female at . status: : No status:NO. PATIENT RELEVANT IMPLANT DATA REVIEWED: Yes PATIENT PRESENTS WITH AN IMPLANTABLE OR ATTACHED SENIOR APPLICATION PROGRAMMER: No RADIOLOGY DEPARTMENT: General X-ray: Exam(s) Completed: Chest X-Ray PERIPHERAL IV DATA: Not applicable SIGNED BY: RT Andrez(R) July 19, 2024 9:02 AM documented in this encounter[facility]25 NoteHNO ID: [id number] Author: MINDI ELLIS RT(Isai) Service: ? Author Type: Twister Doffer Type: Progress Notes Filed: 07/19/2024 09:11 Note Text: Radiology Service Progress Note PATIENT NAME: Jarred Fair DATE OF SERVICE: July 19, 2024 TIME: 9:02 AM PATIENT IDENTITY VERIFICATION COMPLETED USING TWO (2) IDENTIFIERS: Name and Date of confirmed by patient verbally. FALL SCREENING: Has the patient had 2 falls in the last year or 1 fall with injury or currently using an Ambulatory Assistive Device (Walker, Cane, Wheelchair, Crutches, etc.)? No PATIENT GENDER DATA: Assigned female at . status: : No status: NO. PATIENT RELEVANT IMPLANT DATA REVIEWED: Yes PATIENT PRESENTS WITH AN IMPLANTABLE OR ATTACHED SENIOR APPLICATION PROGRAMMER: No RADIOLOGY DEPARTMENT: General X-ray: Exam(s) Completed: Chest X-Ray PERIPHERAL IV DATA: Not applicable SIGNED BY: RT Andrez(R) July 19, 2024 9:02 [facility]05-15-2025 NoteHNO ID: [id number] Author: PALMER CATHERINE RPFT Service: ? Author Type: Respiratory Therapist Type: Procedures Filed: 07/19/2024 08:17 Note Text: RESPIRATORY THERAPY ORAL EXHALED NITRIC OXIDE SERVICE DATE: 07/19/2024 SERVICE TIME: 8:17 AM Oral Exhaled Nitric Oxide measurement: 22.0 (ppb) Normal: Adult <25 ppb, pediatric (<12 years) <20 ppb High Normal / Increased: Adult 25-50 ppb, pediatric (<12 years) 20-35 ppb Moderately raised exhaled Nitric Oxide may indicate underlying inflammation, but note that: Cold and influenza can raise exhaled Nitric Oxide and some patients have higher baseline exhaled Nitric Oxide levels than others. High: Adult >50 ppb, pediatric (<12 years) >35 ppb Indicative of ongoing eosinophilic inflammation. Symptomatic patient likely to respond to steroids. Possible causes (if already on steroids): Poor compliance, recent allergen exposure, steroid dose inadequate, and steroid resistance. Note that not all patients with high exhaled nitric oxide levels display symptoms. Oral Exhaled Nitric Oxide measurement (Previous Encounters) Test Date Oral Exhaled Nitric Oxide (ppb) 07/19/2024 22.0 NAME: Palmer BLANCA Catherine PATIENT NAME: Jarred Fair DATE: July 19, 2024 TIME: 8:17 [facility]05-15-2025 Procedure note* Palmer Catherine RPFT - 07/19/2024 8:17 AM EDTAssociated Order(s): NITRIC OXIDE, EXHALED RESPIRATORY THERAPY ORAL EXHALED NITRIC OXIDE SERVICE DATE: 07/19/2024 SERVICE TIME: 8:17 AM Oral Exhaled Nitric Oxide measurement: 22.0 (ppb) Normal: Adult <25 ppb, pediatric (<12 years) <20 ppb High Normal / Increased: Adult 25-50 ppb, pediatric (<12 years) 20-35 ppb Moderately raised exhaled Nitric Oxide may indicate underlying inflammation, but note that: Cold and influenza can raise exhaled Nitric Oxide and some patients have higher baseline exhaled Nitric Oxide levels than others. High: Adult >50 ppb, pediatric (<12 years) >35 ppb Indicative of ongoing eosinophilic inflammation. Symptomatic patient likely to respond to steroids. Possible causes (if already on steroids): Poor compliance, recent allergen exposure, steroid dose inadequate, and steroid resistance. Note that not all patients with high exhaled nitric oxide levels display symptoms. Oral Exhaled Nitric Oxide measurement (Previous Encounters) Test Date Oral Exhaled Nitric Oxide (ppb) 07/19/2024 22.0 NAME: BLANCA Chaudhry PATIENT NAME: Jarred Fair DATE: July 19, 2024 TIME: 8:17 AM [facility]05-15-2025 Procedure note* Palmer Catherine RPFT - 07/19/2024 8:17 AM EDTAssociated Order(s): NITRIC OXIDE, EXHALED RESPIRATORY THERAPY ORAL EXHALED NITRIC OXIDE SERVICE DATE: 07/19/2024 SERVICE TIME: 8:17 AM Oral Exhaled Nitric Oxide measurement: 22.0 (ppb) Normal: Adult <25 ppb, pediatric (<12 years) <20 ppb High Normal / Increased: Adult 25-50 ppb, pediatric (<12 years) 20-35 ppb Moderately raised exhaled Nitric Oxide may indicate underlying inflammation, but note that: Cold and influenza can raise exhaled Nitric Oxide and some patients have higher baseline exhaled Nitric Oxide levels than others. High: Adult >50 ppb, pediatric (<12 years) >35 ppb Indicative of ongoing eosinophilic inflammation. Symptomatic patient likely to respond to steroids. Possible causes (if already on steroids): Poor compliance, recent allergen exposure, steroid dose inadequate, and steroid resistance. Note that not all patients with high exhaled nitric oxide levels display symptoms. Oral Exhaled Nitric Oxide measurement (Previous Encounters) Test Date Oral Exhaled Nitric Oxide (ppb) 07/19/2024 22.0 NAME: BLANCA Chaudhry PATIENT NAME: Jarred Fair DATE: July 19, 2024 TIME: 8:17 AM documented in [facility] encounter[facility] History of Present illness Narrative* Mariya Mcadams MD - 07/19/2024 8:00 AM EDT Images from the original note were not included. . [facility] Note Patient name: Jarred Fair PCP: Pam Mcgill MD Referring Physician: Haily Alvarez CNP Consultation requested by Haily Alvarez for an opinion regarding shortness of breath. My final recommendations will be communicated back to the requesting physician by way of shared Medical record or letter to requesting physician via US mail. CC: Shortness of breath HPI: Jarred Fair 83 year old female non-smoker with PMH significant for morbid obesity, OPHELIA on CPAP, seasonal allergies, HTN, hypothyroidism, history of adult onset asthma being referred for evaluation of shortness of breath. Patient diagnosed with asthma many years ago. She is on albuterol as needed. She has not required controller inhaler therapy. She has never been hospitalized for her asthma.Asthma worsened by upper respiratory infections and allergies. She has never been formally allergy tested as typical symptoms mainly in the fall. Allergy symptoms have been controlled with montelukast. She states she was doing well until May when she developed acute onset of shortness of breath and worsening lower extremity edema. Updated cardiac evaluation via echocardiogram showed normal bioprosthetic aortic valve and normal LV function. She states she was diagnosed with pneumonia, treated with antibiotics without resolution of her symptoms. Initially she had persistent wheezing and a drycough mainly at night. No fevers, chills, chest pain. Since then her shortness of breath has gotten progressively worse, limiting her activities of daily living. She has had some improvement in her dyspnea with extra Lasix dosing. Pulmonary function testing shows combined restriction and obstruction with normal diffusion corrected for alveolar volume. Compared to pulmonary function testing in 2020, she has had significant reduction in her lung capacity. Patient is obese but denies any recent significant change in her weight. DATA: PFT 06/2024: Pulmonary function test show combined obstruction and restriction. No significant improvement postbronchodilator, reduction in diffusing capacity which corrects for alveolar volume Imaging / Diagnostic Studies: DATE OF EXAM: Jun 13 2024 1:12PM WOX 5291 - XR CHEST 2V FRONTAL/LAT / EXAM DATE/TIME: 06/13/2024 1:12 PM COMPARISON: 05/28/2024 RESULT: Lines, tubes, and devices: None. Lungs and pleura: Small left pleural effusion and basal atelectasis. No consolidation. No lung mass. No pleural effusion. No pneumothorax. Cardiomediastinal silhouette: Stable enlarged cardiomediastinal silhouette. Ascending aortic graft Bones and soft tissues: Unremarkable. IMPRESSION: Small left pleural effusion and basal atelectasis. Cardiomegaly Reviewed chest x-ray shows cardiomegaly with bilateral small pleural effusions Echo 05/2024 [facility]: Normal LV Normal bioprosthetic valve No mention of PAH PAST MEDICAL HISTORY Diagnosis Date Allergic rhinitis, cause unspecified Allergic rhinitis Benign neoplasm of colon Disorder of bone and cartilage, unspecified Dysmetabolic syndrome X 06/28/2006 Started on Januvia by Dr. Toure for DM prevention since did not tolerate metformin Nonrheumatic aortic insufficiency with aortic stenosis Dr. Olguin (patient support assistant). S/P [facility] 12/2016 Obesity, unspecified OPHELIA on CPAP Other diseases of pharynx, not elsewhere classified(478.29) Personal history of colonic polyps Pure hyperglyceridemia Snoring Unspecified asthma(493.90) Unspecified cardiovascular disease AI and some CAD on cath (Clau follows) Unspecified essential hypertension Unspecified hypothyroidism ALLERGIES Allergen Reactions Fragrances Other: See Comments Simvastatin Other: See Comments, Myalgia Includes rosuvastatin 5mg tried M/W/F Jelly Beans Throat got real tight and cough could not breath Nifedipine hypotensive, light headed Perfume Unknown Smoke Unknown Vinegar Unknown spironolactone (ALDACTONE) 25 mg tablet Take 25 mg by mouth once daily. carvedilol (COREG) 25 mg tablet Take 25 mg by mouth two times a day with meals. levothyroxine (SYNTHROID) 137 mcg tablet Take 1 tablet by mouth daily before breakfast. Plus add half pill on Sundays (total 7.5 pills taken per week) albuterol HFA (VENTOLIN HFA) 90 mcg/actuation inhaler Inhale 2 Puffs as instructed every 4 hours asneeded. montelukast (SINGULAIR) 10 mg tablet Take 1 tablet by mouth once daily. As directed CPAP Continue CPAP at 9cm H2O with humidification. Refills for Mask (per patient preference) optional chin strap (if indicated) , filters, tubing, humidifier and lifetime supplies. G47.33 rosuvastatin (CRESTOR) 5 mg tablet Take 1 tablet by mouth two times a week. Miscellaneous Medical Supply Potassium OTC 1 capsule once daily Magnesium 250 mg tab Take 250 mg by mouth once daily. TURMERIC ORAL Take 1 Dose by mouth two times a day. 1 gummie twice daily ZINC ORAL Take 1 Dose by mouth two times a day. 1 gummi two times daily ezetimibe (ZETIA) 10 mg tablet Take 10 mg by mouth once daily. 5 days a week fluticasone (FLONASE) 50 mcg/actuation nasal spray Use 2 Sprays in each nostril once daily as needed for cold/allergy symptoms. Rinse mouth after use. clobetasol (TEMOVATE) 0.05 % ointment amLODIPine (NORVASC) 10 mg tablet Take 1 tablet by mouth once daily. (Dr. Olguin) (Patient taking differently: Take 5 mg by mouth once daily. (Dr. Olguin)) ubidecarenone (CO Q-10 ORAL) Take by mouth once daily. lisinopril (ZESTRIL, PRINIVIL) 40 mg tablet Take 1 tablet by mouth once daily. Multivitamin capsule Take 1 capsule by mouth once daily. furosemide (LASIX) 40 mg tablet Take 40 mg by mouth once daily. vitamin e 1,000 unit capsule Take 1,000 Units by mouth once daily. BIOTIN ORAL Take by mouth. VITAMIN A PALMITATE ORAL Take by mouth. Cetirizine 10 mg cap Take by mouth. Cholecalciferol, Vitamin D3, 1,000 unit cap Take 1 capsule by mouth once daily. aspirin, enteric coated (ASPIRIN, ENTERIC COATED) 81 mg EC tablet Take 1 tablet by mouth once daily. COMPOUNDED PRESCRIPTION CPAP head gear Diagnosis :OPHELIA 327.23 OMEGA-3 FATTY ACIDS-FISH OIL 300 MG-1,000 MG CAP Take one(1) tablet daily. diphenhydramine hcl(BENADRYL 25 MG CAP) Take one(1) tablet daily at bedtime as necessary (uses 5-6 x's a week) fluticasone-salmeterol HFA (ADVAIR HFA) 115-21 mcg/actuation inhaler Inhale 2 puffs as instructed two times a day. 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 FAMILY HISTORY Problem Relation Age of Onset Heart Mother Hypertension Mother Colon Cancer Father Heart Brother x2 Hypertension Brother Diabetes Brother Asthma No Family History PAST SURGICAL HISTORY Procedure Laterality Date CHOLECYSTECTOMY Cholecystectomy COLONOSCOPY FLX DX W/COLLJ SPEC WHEN PFRMD 05/13/2000 Colonoscopy COLONOSCOPY FLX DX W/COLLJ SPEC WHEN PFRMD 06/15/2006 Colonoscopy- TA polyp COLONOSCOPY FLX DX W/COLLJ SPEC WHEN PFRMD 05/22/2015 Colonoscopy COLSC FLX W/RMVL OF TUMOR POLYP LESION SNARE TQ 03/27/2010 COLSC FLX W/RMVL OF TUMOR POLYP LESION SNARE TQ 05/28/2020 DILATION & CURETTAGE DX&/THER NONOBSTETRIC Dilation & curettage EYE EXAM & TREATMENT 01/07/2012 No diabetic retinopathy detected LIG/TRNSXJ FLP TUBE ABDL/VAG APPR UNI/BI Tubal ligation PAST SURGICAL HISTORY OF 02/20/2002 parathyroid resection (Dr. 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 Ferguson took 3 skin biopsies PAST SURGICAL HISTORY OF 12/22/2016 TAVR STRESS TEST 01/12/2016 PMH, Social history, family history and surgical history reviewed and updated in EMR REVIEW OF SYSTEMS: CONSTITUTIONAL: No fevers, chills, nightsweats, unintended weight loss HEENT: Seasonal nasal congestion/sinus symptoms, allergy problems. CARDIOVASCULAR: No chest pain, palpitations, orthopnea. Edema. PULM: See HPI GI: No issues NEURO: No balance problems, peripheral weakness/paresthesias or numbness of concern. MUSC-SKEL: No joint pain, swelling, or erythema. INTEGUMENTARY: No new skin changes or rashes or eczema PHYSICAL EXAMINATION: BP 161/68 Pulse 65 Wt 216 lb (98.0kg) SpO2 90% LMP 09/04/2001 General Appearance: Obese female with tachypnea but not in distress. Skin: Skin color, texture, turgor normal, no suspicious rashes or lesions. Head: Normocephalic, no masses, lesions, tenderness or abnormalities. Neck: No masses or adenopathy. Lungs: Not labored, percussion in both bases, diminished breath sounds, no crackles or wheezes Heart: Regular rate and rhythm, harsh musical systolic murmur. Extremities: 3+ pitting edema, no clubbing. Assessment/Plan: 1. Shortness of breath -Known mild intermittent asthma and cardiac history with acute decompensation/shortness of breath which would be most consistent with cardiac source -Exhaled nitric oxide level is normal. Started controller inhaler therapy for her asthma -Will check D-dimer, BNP and eosinophil count -Depending on D-dimer result, may need CTA chest 2. Mild persistent asthma -See #1 3. Diastolic heart failure -See#1 - Suspect diastolic heart failure as etiology for her shortness of breath -Repeat chest x-ray 4. Morbid obesity -BMI 42 - Weight loss advised Mariya Mcadams MD [facility] documented in this encounter[facility] NoteHNO ID: [id number] Author: MARIYA MCADAMS MD Service: ? Author Type: Physician Type: Progress Notes Filed: 07/19/2024 09:10 Note Text: . [facility] [place] Note Patient name: Jarred Fair PCP: Pam Mcgill MD Referring Physician: Haily Alvarez CNP Consultation requested by Haily Alvarez for an opinion regarding shortness of breath. My final recommendations will be communicated back to the requesting physician by way of shared Medical record or letter to requesting physician via US mail. CC: Shortness of breath HPI: Jarred Fair 83 year old female non-smoker with PMH significant for morbid obesity, OPHELIA on CPAP, seasonal allergies, HTN, hypothyroidism, history of adult onset asthma being referred for evaluation of shortness of breath. Patient diagnosed with asthma many years ago. She is on albuterol as needed. She has not required controller inhaler therapy. She has never been hospitalized for her asthma. Asthma worsened by upper respiratory infections and allergies. She has never been formally allergy tested as typical symptoms mainly in the fall. Allergy symptoms have been controlled with montelukast. She states she was doing well until May when she developed acute onset of shortness of breath and worsening lower extremity edema. Updated cardiac evaluation via echocardiogram showed normal bioprosthetic aortic valve and normal LV function. She states shewas diagnosed with pneumonia, treated with antibiotics without resolution of her symptoms. Initially she had persistent wheezing and a dry cough mainly at night. No fevers, chills, chest pain. Since then her shortness of breath has gotten progressively worse, limiting her activities of daily living. She has had some improvement in her dyspnea with extra Lasix dosing. Pulmonary function testing shows combined restriction and obstruction with normal diffusion corrected for alveolar volume. Compared to pulmonary function testing in 2020, she has had significant reduction in her lung capacity. Patient is obese but denies any recent significant change in her weight. DATA: PFT 06/2024: Pulmonary function test show combined obstruction and restriction. No significant improvement postbronchodilator, reduction in diffusing capacity which corrects for alveolar volume Imaging / Diagnostic Studies: DATE OF EXAM: Jun 13 2024 1:12PM WOX 5291 - XR CHEST 2V FRONTAL/LAT / EXAM DATE/TIME: 06/13/2024 1:12 PM COMPARISON: 05/28/2024 RESULT: Lines, tubes, and devices: None. Lungs and pleura: Small left pleural effusion and basal atelectasis. No consolidation. No lung mass. No pleural effusion. No pneumothorax. Cardiomediastinal silhouette: Stable enlarged cardiomediastinal silhouette. Ascending aortic graft Bones and soft tissues: Unremarkable. IMPRESSION: Small left pleural effusion and basal atelectasis. Cardiomegaly Reviewed chest x-ray shows cardiomegaly with bilateral small pleural effusions Echo 05/2024 [facility]: Normal LV Normal bioprosthetic valve No mention of PAH PAST MEDICAL HISTORY Diagnosis Date Allergic rhinitis, cause unspecified Allergic rhinitis Benign neoplasm of colon Disorder of bone and cartilage, unspecified Dysmetabolic syndrome X 06/28/2006 Started on Januvia by Dr. Toure for DM prevention since did not tolerate metformin Nonrheumatic aortic insufficiency with aortic stenosis Dr. Olguin (patient support assistant). [facility] Obesity, unspecified OPHELIA on CPAP Other diseases of pharynx, not elsewhere classified(478.29) Personal history of colonic polyps Pure hyperglyceridemia Snoring Unspecified asthma(493.90) Unspecified cardiovascular disease AI and some CAD on cath (Clau follows) Unspecified essential hypertension Unspecified hypothyroidism ALLERGIES Allergen Reactions Fragrances Other: See Comments Simvastatin Other: See Comments, Myalgia Includes rosuvastatin 5mg tried M/W/F Jelly Beans Throat got real tight and cough could not breath Nifedipine hypotensive, light headed Perfume Unknown Smoke Unknown Vinegar Unknown spironolactone (ALDACTONE) 25 mg tablet Take 25 mg by mouth once daily. carvedilol (COREG) 25 mg tablet Take 25 mg by mouth two times a day with meals. levothyroxine (SYNTHROID) 137 mcg tablet Take 1 tablet by mouth daily before breakfast. Plus add half pill on Sundays (total 7.5 pills taken per week) albuterol HFA (VENTOLIN HFA) 90 mcg/actuation inhaler Inhale 2 Puffs as instructed every 4 hours as needed. montelukast (SINGULAIR) 10 mg tablet Take 1 tablet by mouth once daily. As directed CPAP Continue CPAP at 9cm H2O with humidification. Refills for Mask (per patient preference) optional chin strap (if indicated) , filters, tubing, humidifier and lifetime supplies. G47.33 rosuvastatin (CRESTOR) 5 mg tablet Take 1 tablet by mouth two times a week. Miscellaneous Medical Supply Potassium (more content not included)...[facility]05-05-2025 Radiology Diagnostic study note [facility] Imaging Services [facility] [place] [address] Chest PA and Lateral MR#: [id number] Acct: [id number] Name: FRANK FAIR Rep #: [id number] : 1940 F 83 From: Marisol Quinn MD PCP: Dr. Pam Mcgill MD Status: RE G CLI Study:Chest PA and Lateral Date of Exam: 07/05/24 Exam# [id number] Ordering Dr: Dana Ireland PA PROCEDURE: CHEST PA AND LATERAL 07/05/2024 REASON FOR EXAM: SOB TECHNIQUE: Frontal and lateral views of the chest. COMPARISON: No relevant prior FINDINGS: Lungs: Bilateral prominent pulmonary vasculature. Pleura: Small bilateral pleural effusions blunt the lateral and posterior costophrenic angles. Heart: Mild cardiac enlargement. Mediastinum/Argenis: Unremarkable. Great vessels: Atherosclerotic and mildly tortuous aorta. Stent graft near the aortic root. Bones/soft tissues: Multilevel spondylosis. RAD/Chest PA and Lateral IMPRESSION: Findings consistent with pulmonary venous congestion. Reading Location: [facility] CC: Dr. Pam Mcgill MD; FILIBERTO Mcdonough ~ Retail Department Supervisor: Signed [facility]05-01-2025 Evaluation note* Diagnosis Onset Date Resolution Status Admit Date Essential hypertension chronic Ma y 2024 12:51pm H/O aortic valve replacement December 22, 2016 chronic July 05, 2024 12:51pm Hyperlipidemia chronic July 05 12:51pm Shortness of breath resolved July 052024 12:51pm Essential hypertension chronic Ma y 2024 8:55am H/O aortic valve replacement December 22, 2016 chronic July 13, 2024 8:55am Hyperlipidemia chronic July 13 8:55am Shortness of breath resolved July 062024 11:59am [facility] Work Phone: 1(784) 832-764005-01-2025 Evaluation note* Diagnosis Onset Date Resolution Status Admit Date Essential hypertension chronic Ma y 2024 12:51pm H/O aortic valve replacement December 22, 2016 chronic July 05, 2024 12:51pm Hyperlipidemia chronic July 05 12:51pm Shortness of breath resolved July 052024 12:51pm Essential hypertension chronic Ma y 2024 8:55am H/O aortic valve replacement December 22, 2016 chronic July 13, 2024 8:55am Hyperlipidemia chronic July 13 025 8:55am Shortness of breath resolved July 062024 11:59am Acute hyperkalemia acute September 052024 5:55pm Acute hyponatremia acute September 052024 5:55pm Acute hypotension acute September 5:55pm Acute kidney injury acute September 05, 2024 5:55pm Acute prerenal azotemia acute J augie 2024 5:55pm First degree heart block acute September 05, 2024 5:55pm Hypercalcemia acute September 05, 025 5:55pm Right bundle branch block acute September 05, 2024 5:55pm Syncope and collapse acute September 05, 2024 5:55pm Atherosclerosis of coronary artery of [place] heart without angina pectoris chronic September 5:55pm Essential hypertension chronic Ju 2024 5:55pm H/O aortic valve replacement December 22, 2016 chronic September 05, 2024 5:55pm Hyperlipidemia chronic September 05, 2024 5:55pm [facility] Work Phone: 1(330) 441-314404-24-2025 NoteHNO ID: [id number] Author: HAILY ALVAREZ APRN.DIRECTOR OF BUSINESS OPERATIONS Service: ? Author Type: Nurse Specialist Type: Progress Notes Filed: 06/28/2024 11:01 Note Text: Subjective Patient ID: Jarred is a 83 year old female who presents for No chief complaint on file.. HPI Dyspnea: - Onset in April; initially accompanied by elevated blood pressure. - Managed by [facility] with increased antihypertensive medication. - Worsened in May, leading to an urgent care visit where bilateral pneumonia was diagnosed. - Recent PFTs showed both obstructive and restrictive patterns, with decreased diffusing capacity. - Echocardiogram on May 22 showed normal LV size and function, no significant valvular change at aortic valve, mild LA dilation. See scanned document - Currently using a CPAP machine for OPHELIA. - Denies improvement with albuterol inhaler use. Edema: - Reports persistent edema in feet and ankles, unresponsive to current Lasix 40 mg daily. - Edema previously resolved overnight but now remains constant. Weight Management: - Struggles with weight loss for 60 years. - Previously managed weight through walking and dietary modifications. - Currently unable to exercise due to severe dyspnea with minimal exertion. - Reports poor dietary habits, not eating the right stuff. - Has discussed weight loss with Dr. Mcgill and Dr. Olguin, but no specific recommendations provided recently. ROS Constitutional: (+) weight gain Cardiovascular: (+) lower extremity edema Respiratory: (+) shortness of breath Objective LMP 09/04/2001 Physical Exam Vitals and nursing note reviewed. Constitutional: Appearance: Normal appearance. HENT: Head: Normocephalic and atraumatic. Eyes: Conjunctiva/sclera: Conjunctivae normal. Cardiovascular: Rate and Rhythm: Normal rate and regular rhythm. Heart sounds: Normal heart sounds. Pulmonary: Effort: Pulmonary effort is normal. Breath sounds: Normal breath sounds. Abdominal: General: Bowel sounds are normal. Palpations: Abdomen is soft. Musculoskeletal: Right lower leg: Edema (1-2+ to mid calf) present. Left lower leg: Edema (1-2+ to mid calf) present. Neurological: General: No focal deficit present. Mental Status: She is alert and oriented to person, place, and time. 1. DONALD (dyspnea on exertion) (R06.09) 2. Restrictive lung disease (J98.4) 3. Decreased diffusion capacity (R94.2) 5. History of asthma (Z87.09) - Recent PFTs show both obstructive and restrictive patterns, with decreased diffusing capacity; no improvement with bronchodilators. - Echocardiogram on May 22 2024 showed normal LV size and function, mild LA dilation; no significant changes from previous studies. Sooner follow up with cardiology recommended due to increased dyspnea on exertion and edema. Increasing carvedilol dose may have made asthma symptoms worse than previous. - Referred to pulmonology for further evaluation and management. - Discussed potential use of a combination inhaler with bronchodilator and corticosteroid properties; will consider based on pulmonology recommendations and insurance coverage. 4. OPHELIA (obstructive sleep apnea) (G47.33) - is currently using CPAP therapy. 6. Class 3 severe obesity due to excess calories with body mass index (BMI) of 40.0 to 44.9 in adult (E66.813) - Discussed weight loss strategies, including diet and exercise;reports difficulty with exercise due to dyspnea. - Educated on pharmacological options for weight loss, including appetite suppressants such as bupropion and GLP-1 receptor agonists (e.g., Ozempic); advised patient to check insurance coverage. - Follow-up in one month to reassess weight management progress, edema, dyspnea on exertion and discuss potential initiation of weight loss medication. 7. IFG (impaired fasting glucose) (R73.01) 8. Aortic valve disorder (I35.9) Following with cardiology [facility]. Haily Alvarez APRN.DIRECTOR OF BUSINESS OPERATIONS Medical Decision Making: Problems: Moderate: 1+ chronic illnesses with change Data: Unique test result(s) reviewed: 3+ Risk: Moderate: Drug management Medical Decision Making Level: 4 - [facility] Telephone encounter Note* Telephone Encounter - Betzaida Peters - 06/19/2024 1:59 PM EDT Spoke with patient and scheduled. PFTs scheduled for 06/20/24. [facility]04-15-2025 Miscellaneous Notes* Telephone Encounter - Betzaida Peters - 06/19/2024 1:59 PM EDT Spoke with patient and scheduled. PFTs scheduled for 06/20/24. * Telephone Encounter - Megan Castle LPN - 06/19/2024 12:57 PM EDT Patient notified of providers message and verbalized understanding. Encounter routed to PSS to assist patient in scheduling PFT's * Telephone Encounter - Pam Mcgill MD - 06/19/2024 11:04 AM EDT Will start with PFTs since has been a while since last checked and has history of asthma. If not revealing cause for DONALD, then plan on echocardiogram again. * Telephone Encounter - Chikis Toney RN - 06/18/2024 1:24 PM EDT Pt called and is notified of providers results and instructions. Pt voices understanding. She states she is having slightly worse Sob with exertion, she states now she is having it inside with less exertion. Did not know if provider wanted to get another Echo. Pt also last had PFTs in 2020, did notknow if provider wanted to order these as well. Please call and let Pt know and get scheduled. Chikis Toney, RN * Telephone Encounter - Pam Mcgill MD - 06/18/2024 1:10 PM EDT Just a small left pleural effusion noted and some basal atelectasis. No consolidation--so no signs of pneumonia. Noted stable cardiomegaly (stable enlarged cardiomediastinal silhouette). Consider further evaluation with PFTs. Also, if shortness of breath with exertion is increased compared to back in May when had last echocardiogram, consider repeat echocardiogram to make sure cardiac function has not decreased. Also, should update labs as ordered to make sure no issues with anemia, etc. have developed since last labs done in February (unless had labs done at outside lab recently) * Telephone Encounter - Betzaida Ramirez RN - 06/15/2024 10:53 AM EDT Patient calling and asking about chest x-ray results that were done on 06/13/2024. Please review and advise, Betzaida Ramirez RN [facility] Telephone encounter Note * Telephone Encounter - Megan Castle LPN - 06/19/2024 12:57 PM EDT Patient notified of providers message and verbalized understanding. Encounter routed to PSS to assist patient in scheduling PFT's [facility]04-15-2025 Telephone encounter Note* Telephone Encounter - Pam Mcgill MD - 06/19/2024 11:04 AM EDT Will start with PFTs since has been a while since last checked and has history of asthma. If not revealing cause for DONALD, then plan on echocardiogram again. [facility]04-14-2025 Telephone encounter Note* Telephone Encounter - Claudia Duong RN - 06/18/2024 1:37 PM EDT Phoned patient and given provider's message below with verbalized understanding. Pt agreeable. Pt scheduled lab appt for this Wed. [facility]04-14-2025 Miscellaneous Notes* Telephone Encounter - Claudia Duong RN - 06/18/2024 1:37 PM EDT Phoned patient and given provider's message below with verbalized understanding. Pt agreeable. Pt scheduled lab appt for this Wed. * Telephone Encounter - Pam Mcgill MD - 06/18/2024 1:10 PM EDT From result note added: Just a small left pleural effusion noted and some basal atelectasis. No consolidation--so no signs of pneumonia. Noted stable cardiomegaly (stable enlarged cardiomediastinal silhouette). Consider further evaluation with PFTs. Also, if shortness of breath with exertion is increased compared to back in May when had last echocardiogram, consider repeat echocardiogram to make sure cardiac function has not decreased. Also, should update labs as ordered to make sure no issues with anemia, etc. have developed since last labs done in February (unless had labs done at outside lab recently) documented in [facility] Telephone encounter Note * Telephone Encounter - Chikis Toney RN - 06/18/2024 1:24 PM EDT Pt called and is notified of providers results and instructions. Pt voices understanding. She states she is having slightly worse Sob with exertion, she states now she is having it inside with less exertion. Did not know if provider wanted to get another Echo. Pt also last had PFTs in 2020, did notknow if provider wanted to order these as well. Please call and let Pt know and get scheduled. Chikis Toney, RN [facility]04-14-2025 Telephone encounter Note* Telephone Encounter - Pam Mcgill MD - 06/18/2024 1:10 PM EDT Just a small left pleural effusion noted and some basal atelectasis. No consolidation--so no signs of pneumonia. Noted stable cardiomegaly (stable enlarged cardiomediastinal silhouette). Consider further evaluation with PFTs. Also, if shortness of breath with exertion is increased compared to back in May when had last echocardiogram, consider repeat echocardiogram to make sure cardiac function has not decreased. Also, should update labs as ordered to make sure no issues with anemia, etc. have developed since last labs done in February (unless had labs done at outside lab recently) [facility]04-14-2025 Telephone encounter Note* Telephone Encounter - Pam Mcgill MD - 06/18/2024 1:10 PM EDT From result note added: Just a small left pleural effusion noted and some basal atelectasis. No consolidation--so no signs of pneumonia. Noted stable cardiomegaly (stable enlarged cardiomediastinal silhouette). Consider further evaluation with PFTs. Also, if shortness of breath with exertion is increased compared to back in May when had last echocardiogram, consider repeat echocardiogram to make sure cardiac function has not decreased. Also, should update labs as ordered to make sure no issues with anemia, etc. have developed since last labs done in February (unless had labs done at outside lab recently) [facility]04-11-2025 Telephone encounter Note* Telephone Encounter - Betzaida Ramirez RN - 06/15/2024 10:53 AM EDT Patient calling and asking about chest x-ray results that were done on 06/13/2024. Please review and advise, Betzaida Ramirez RN [facility]04-09-2025 History of Present illness Narrative* Khadra Hernandez Tech - 06/13/2024 1:10 PM EDT Radiology Service Progress Note PATIENT NAME: Jarred Fair DATE OF SERVICE: June 13, 2024 TIME: 1:02 PM PATIENT IDENTITY VERIFICATION COMPLETED USING TWO (2) IDENTIFIERS: Name and Date of confirmedby patient verbally. FALL SCREENING: Has the patient had 2 falls in the last year or 1 fall with injury or currently using an Ambulatory Assistive Device (Walker, Cane, Wheelchair, Crutches, etc.)? No PATIENT GENDER DATA: Assigned female at . status: : No status:NO. PATIENT RELEVANT IMPLANT DATA REVIEWED: Not Applicable PATIENT PRESENTS WITH AN IMPLANTABLE OR ATTACHED SENIOR APPLICATION PROGRAMMER: No RADIOLOGY DEPARTMENT: General X-ray: Exam(s) Completed: Chest X-Ray PERIPHERAL IV DATA: Not applicable SIGNED BY: Manjula Loaiza June 13, 2024 1:02 PM documented in this encounterSelect [facility]25 NoteHNO ID: [id number] Author: KHADRA HERNANDEZ Tech Service: ? Author Type: Technologist Type: Progress Notes Filed: 06/13/2024 13:12 Note Text: Radiology Service Progress Note PATIENT NAME: Jarred Fair DATE OF SERVICE: June 13, 2024 TIME: 1:02 PM PATIENT IDENTITY VERIFICATION COMPLETED USING TWO (2) IDENTIFIERS: Name and Date of confirmed by patient verbally. FALL SCREENING: Has the patient had 2 falls in the last year or 1 fall with injury or currently using an Ambulatory Assistive Device (Walker, Cane, Wheelchair, Crutches, etc.)? No PATIENT GENDER DATA: Assigned female at . status: : No status: NO. PATIENT RELEVANT IMPLANT DATA REVIEWED: Not Applicable PATIENT PRESENTS WITH AN IMPLANTABLE OR ATTACHED SENIOR APPLICATION PROGRAMMER: No RADIOLOGY DEPARTMENT: General X-ray: Exam(s) Completed: Chest X-Ray PERIPHERAL IV DATA: Not applicable SIGNED BY: Manjula Loaiza June 13, 2024 1:02 [facility]03-27-2025 Instructions* Patient Instructions* Pam Mcgill MD - 05/31/2024 3:40 PM EDT - Continue taking Augmentin and Z-Minor as prescribed; complete the full course. - Use your albuterol inhaler twice daily and as needed for wheezing or coughing. - Perform deep breathing exercises every hour to help clear your airways. - Wear compression socks to help reduce leg swelling; consider purchasing more elastic, stretchy socks if current ones are too tight. - Monitor your oxygen levels at home using your pulse oximeter. - Schedule a chest x-ray for next month to ensure pneumonia is resolving. - Fast before your next lab tests, which include A1c, metabolic panel, vitamin D, urine test, bloodcounts, and cholesterol panel. - Keep your follow-up appointment in two weeks to review lab results and monitor your progress. documented in this encounterSelect [facility]25 NoteHNO ID: [id number] Author: PAM MCGILL MD Service: ? Author Type: Physician Type: Progress Notes Filed: 05/31/2024 15:42 Note Text: This note was created using [employer]. Subjective Jarred Fair is a 83 year old female. Patient presents with: Follow Up For: Express Care visit 05/28/24-Pneumonia AND SOB SUBJECTIVE: Jarred Fair is a 83 year old year old lady here today for follow up appointment for review of medical conditions. Jarred is a 83-year-old female, with a history of asthma and HTN, presenting for follow-up of dyspnea. Jarred reports improvement in dyspnea, which began 3-4 weeks ago and was more severe than usual. She initially attributed the dyspnea to her weight and postponed seeking medical attention. She denies any cough, fever, or URI symptoms at the onset of dyspnea. She was evaluated in [facility] on 05/28/2022, where she was diagnosed with pneumonia and started on a Z-Minor and Augmentin. She notes that a dry cough began after starting the antibiotics on Tuesday. She also reports experiencing some wheezing at home, for which she has been using her albuterol inhaler, initially prescribed in February. She denies any issues with Flonase. She reports experiencing diarrhea since starting the antibiotics but denies it being intolerable. She also notes experiencing chills at night, but states this is not worse than usual for her. She denies any other signs of infection. She reports that her blood pressure increased around the same time the dyspnea began. She was previously on carvedilol 3.125 mg, which was increased to 25 mg. She denies any issues with the medication adjustment. She also reports some lower extremity edema, which she states is about the same as usual for her. She has a pair of compression socks at home, but finds them difficult to put on. PAST MEDICAL HISTORY Diagnosis Date Allergic rhinitis, cause unspecified Allergic rhinitis Benign neoplasm of colon Disorder of bone and cartilage, unspecified Dysmetabolic syndrome X 06/28/2006 Started on Januvia by Dr. Toure for DM prevention since did not tolerate metformin Nonrheumatic aortic insufficiency with aortic stenosis Dr. Olguin (patient support assistant). S/P [facility] 12/2016 Obesity, unspecified Other diseases of pharynx, not elsewhere classified(478.29) Personal history of colonic polyps Pure hyperglyceridemia Snoring Unspecified asthma(493.90) Unspecified cardiovascular disease AI and some CAD on cath ([place] follows) Unspecified essential hypertension Unspecified hypothyroidism Current Outpatient Medications Medication Sig carvedilol (COREG) 25 mg tablet Take 25 mg by mouth two times a day with meals. azithromycin (ZITHROMAX) 250 mg tablet Take 2 tablets by mouth once daily for 1 day, THEN 1 tablet once daily for 4 days. amoxicillin-clavulanate potassium (AUGMENTIN) 875-125 mg per tablet Take 1 tablet by mouth two times a day for 5 days. levothyroxine (SYNTHROID) 137 mcg tablet Take 1 tablet by mouth daily before breakfast. Plus add half pill on Sundays (total 7.5 pills taken per week) albuterol HFA (VENTOLIN HFA) 90 mcg/actuation inhaler Inhale 2 Puffs as instructed every 4 hours as needed. montelukast (SINGULAIR) 10 mg tablet Take 1 tablet by mouth once daily. As directed CPAP Continue CPAP at 9cm H2O with humidification. Refills for Mask (per patient preference) optional chin strap (if indicated) , filters, tubing, humidifier and lifetime supplies. G47.33 rosuvastatin (CRESTOR) 5 mg tablet Take 1 tablet by mouth two times a week. Miscellaneous Medical Supply Potassium OTC 1 capsule once daily Magnesium 250 mg tab Take 250 mg by mouth once daily. TURMERIC ORAL Take 1 Dose by mouth two times a day. 1 gummie twice daily ZINC ORAL Take 1 Dose by mouth two times a day. 1 gummi two times daily fluticasone (FLONASE) 50 mcg/actuation nasal spray Use 2 Sprays in each nostril once daily as needed for cold/allergy symptoms. Rinse mouth after use. clobetasol (TEMOVATE) 0.05 % ointment amLODIPine (NORVASC) 10 mg tablet Take 1 tablet by mouth once daily. (Dr. Olguin) ubidecarenone (CO Q-10 ORAL) Take by mouth once daily. lisinopril (ZESTRIL, PRINIVIL) 40 mg tablet Take 1 tablet by mouth once daily. Multivitamin capsule Take 1 capsule by mouth once daily. furosemide (LASIX) 40 mg tablet Take 40 mg by mouth once daily. vitamin e 1,000 unit capsule Take 1,000 Units by mouth once daily. BIOTIN ORAL Take by mouth. VITAMIN A PALMITATE ORAL Take by mouth. Cetirizine 10 mg cap Take by mouth. Cholecalciferol, Vitamin D3, 1,000 unit cap Take 1 capsule by mouth once daily. aspirin, enteric coated (ASPIRIN, ENTERIC COATED) 81 mg EC tablet Take 1 tablet by mouth once daily. COMPOUNDED PRESCRIPTION CPAP head gear Diagnosis :OPHELIA 327.23 OMEGA-3 FATTY ACIDS-FISH OIL 300 MG-1,000 MG CAP Take one(1) tablet daily. diphenhydramine hcl(BENADRYL 25 MG CAP) Take one(1) tablet daily a (more content not included)...[facility]03-27-2025 History of Present illness Narrative* Pam Mcgill MD - 05/31/2024 3:20 PM EDT This note was created using [employer]. Subjective Jarred Fair is a 83 year old female. Patient presents with: Follow Up For: Express Care visit 05/28/24-Pneumonia & SOB SUBJECTIVE: Jarred Fair is a 83 year old year old lady here today for follow up appointment for review of medical conditions. Jarred is a 83-year-old female, with a history of asthma and HTN, presenting for follow-up of dyspnea. Jarred reports improvement in dyspnea, which began 3-4 weeks ago and was more severe than usual. She initially attributed the dyspnea to her weight and postponed seeking medical attention. She denies any cough, fever, or URI symptoms at the onset of dyspnea. [facility] , where she was diagnosed with pneumonia and started on a Z-Minor and Augmentin. She notes that a dry cough began after starting the antibiotics on Tuesday. She also reports experiencing some wheezing at home, for which she has been using her albuterol inhaler, initially prescribed in February. Shedenies any issues with Flonase. She reports experiencing diarrhea since starting the antibiotics but denies it being intolerable. She also notes experiencing chills at night, but states this is not worse than usual for her. She denies any other signs of infection. She reports that her blood pressure increased around the same time the dyspnea began. She was previously on carvedilol 3.125 mg, which was increased to 25 mg. She denies any issues with the medication adjustment. She also reports some lower extremity edema, which she states is about the same as usual for her. She has a pair of compression socks at home, but finds them difficult to put on. PAST MEDICAL HISTORY Diagnosis Date Allergic rhinitis, cause unspecified Allergic rhinitis Benign neoplasm of colon Disorder of bone and cartilage, unspecified Dysmetabolic syndrome X 06/28/2006 Started on Januvia by Dr. Toure for DM prevention since did not tolerate metformin Nonrheumatic aortic insufficiency with aortic stenosis Dr. Olguin (patient support assistant). S/P [facility] 12/2016 Obesity, unspecified Other diseases of pharynx, not elsewhere classified(478.29) Personal history of colonic polyps Pure hyperglyceridemia Snoring Unspecified asthma(493.90) Unspecified cardiovascular disease AI and some CAD on cath (Clau follows) Unspecified essential hypertension Unspecified hypothyroidism Current Outpatient Medications Medication Sig carvedilol (COREG) 25 mg tablet Take 25 mg by mouth two times a day with meals. azithromycin (ZITHROMAX) 250 mg tablet Take 2 tablets by mouth once daily for 1 day, THEN 1 tablet once daily for 4 days. amoxicillin-clavulanate potassium (AUGMENTIN) 875-125 mg per tablet Take 1 tablet by mouth two times a day for 5 days. levothyroxine (SYNTHROID) 137 mcg tablet Take 1 tablet by mouth daily before breakfast. Plus add half pill on Sundays (total 7.5 pills taken per week) albuterol HFA (VENTOLIN HFA) 90 mcg/actuation inhaler Inhale 2 Puffs as instructed every 4 hours asneeded. montelukast (SINGULAIR) 10 mg tablet Take 1 tablet by mouth once daily. As directed CPAP Continue CPAP at 9cm H2O with humidification. Refills for Mask (per patient preference) optional chin strap (if indicated) , filters, tubing, humidifier and lifetime supplies. G47.33 rosuvastatin (CRESTOR) 5 mg tablet Take 1 tablet by mouth two times a week. Miscellaneous Medical Supply Potassium OTC 1 capsule once daily Magnesium 250 mg tab Take 250 mg by mouth once daily. TURMERIC ORAL Take 1 Dose by mouth two times a day. 1 gummie twice daily ZINC ORAL Take 1 Dose by mouth two times a day. 1 gummi two times daily fluticasone (FLONASE) 50 mcg/actuation nasal spray Use 2 Sprays in each nostril once daily as needed for cold/allergy symptoms. Rinse mouth after use. clobetasol (TEMOVATE) 0.05 % ointment amLODIPine (NORVASC) 10 mg tablet Take 1 tablet by mouth once daily. (Dr. Olguin) ubidecarenone (CO Q-10 ORAL) Take by mouth once daily. lisinopril (ZESTRIL, PRINIVIL) 40 mg tablet Take 1 tablet by mouth once daily. Multivitamin capsule Take 1 capsule by mouth once daily. furosemide (LASIX) 40 mg tablet Take 40 mg by mouth once daily. vitamin e 1,000 unit capsule Take 1,000 Units by mouth once daily. BIOTIN ORAL Take by mouth. VITAMIN A PALMITATE ORAL Take by mouth. Cetirizine 10 mg cap Take by mouth. Cholecalciferol, Vitamin D3, 1,000 unit cap Take 1 capsule by mouth once daily. aspirin, enteric coated (ASPIRIN, ENTERIC COATED) 81 mg EC tablet Take 1 tablet by mouth once daily. COMPOUNDED PRESCRIPTION CPAP head gear Diagnosis :OPHELIA 327.23 OMEGA-3 FATTY ACIDS-FISH OIL 300 MG-1,000 MG CAP Take one(1) tablet daily. diphenhydramine hcl(BENADRYL 25 MG CAP) Take one(1) tablet daily at bedtime as necessary (uses 5-6 x's a week) carvedilol (COREG) 3.125 mg tablet Take 1 tablet by mouth two times a day. (Patient not taking: Reported on 05/28/2024) ezetimibe (ZETIA) 10 mg tablet Take 10 mg by mouth once daily. 5 days a week No current facility-administered medications for this visit. Review of Systems Objective BP 149/66 Pulse 75 Temp 37.1 C (98.7 F) (Oral) Resp 18 Wt 98.2 kg (216 lb 7.9 oz) LMP 09/04/2001 SpO2 93% BMI 42.99 kg/m Physical Exam Constitutional: Appearance: Normal appearance. HENT: Head: Normocephalic. Eyes: Conjunctiva/sclera: Conjunctivae normal. Cardiovascular: Rate and Rhythm: Normal rate and regular rhythm. Heart sounds: Normal heart sounds. Pulmonary: Effort: Pulmonary effort is normal. Breath sounds: Normal breath sounds. Comments: A few fine crackles with forced expirations in bases posteriorly. Moving air well Musculoskeletal: Right lower le+ Pitting Edema present. Left lower le+ Pitting Edema present. Skin: General: Skin is warm and dry. Neurological: General: No focal deficit present. Mental Status: She is alert and oriented to person, place, and time. Psychiatric: Mood and Affect: Mood normal. Behavior: Behavior normal. Thought Content: Thought content normal. Judgment: Judgment normal. Assessment and Plan # Pneumonia of both lower lobes due to infectious organism (J18.9) - Diagnosed with bilateral lower lobe pneumonia; chest X-ray showed hazy opacities in both lungs. - Currently on a 5-day course of Augmentin and Z-Minor; experiencing mild diarrhea but tolerable. - Breathing has improved; able to speak in full sentences without significant dyspnea. - Scheduled follow-up chest X-ray in one month to ensure resolution of opacities. # Primary hypertension (I10) - Blood pressure initially elevated upon arrival, but subsequent readings were 130/44 mmHg. - Recent increase in carvedilol dosage to 25 mg. - Discussed potential for pneumonia to cause transient increases in blood pressure due to systemic stress. # Moderate persistent asthma with exacerbation (J45.41) - Recent exacerbation with increased shortness of breath and wheezing. - Utilizing albuterol inhaler regularly; advised to use scheduled doses twice daily and as needed. - No significant wheezing on auscultation today; some fine crackles noted. - Continue Flonase for allergy control. # Bilateral leg edema (R60.0) - Chronic bilateral leg edema noted; no significant change in severity. - Advised use of compression socks to manage edema; discussed options for more elastic, breathable socks. Pam Mcgill MD [facility] History of Present illness Narrative* Yves Moreno, RT(R) - 05/28/2024 1:40 PM EDT Radiology Service Progress Note PATIENT NAME: Jarred Fair DATE OF SERVICE: May 28, 2024 TIME: 1:39 PM PATIENT IDENTITY VERIFICATION COMPLETED USING TWO (2) IDENTIFIERS: Name and Date of confirmedby patient verbally. FALL SCREENING: Has the patient had 2 falls in the last year or 1 fall with injury or currently using an Ambulatory Assistive Device (Walker, Cane, Wheelchair, Crutches, etc.)? No PATIENT GENDER DATA: Assigned female at . status: : No status:NO. PATIENT RELEVANT IMPLANT DATA REVIEWED: Not Applicable PATIENT PRESENTS WITH AN IMPLANTABLE OR ATTACHED SENIOR APPLICATION PROGRAMMER: No RADIOLOGY DEPARTMENT: General X-ray: Exam(s) Completed: Chest X-Ray PERIPHERAL IV DATA: Not applicable SIGNED BY: RT Savanah(R) May 28, 2024 1:39 PM documented in this encounterSelect [facility] [place]-2025 NoteHNO ID: [id number] Author: YVES MORENO RT(R) Service: Radiology Author Type: Technologist Type: Progress Notes Filed: 05/28/2024 13:46 Note Text: Radiology Service Progress Note PATIENT NAME: Jarred Fair DATE OF SERVICE: May 28, 2024 TIME: 1:39 PM PATIENT IDENTITY VERIFICATION COMPLETED USING TWO (2) IDENTIFIERS: Name and Date of confirmed by patient verbally. FALL SCREENING: Has the patient had 2 falls in the last year or 1 fall with injury or currently using an Ambulatory Assistive Device (Walker, Cane, Wheelchair, Crutches, etc.)? No PATIENT GENDER DATA: Assigned female at . status: : No status: NO. PATIENT RELEVANT IMPLANT DATA REVIEWED: Not Applicable PATIENT PRESENTS WITH AN IMPLANTABLE OR ATTACHED SENIOR APPLICATION PROGRAMMER: No RADIOLOGY DEPARTMENT: General X-ray: Exam(s) Completed: Chest X-Ray PERIPHERAL IV DATA: Not applicable SIGNED BY: RT Savanah(Isai) May 28, 2024 1:39 [facility] History of Present illness Narrative* Romario Hurst APRN.CNP - 05/28/2024 1:30 PM EDT [facility] Subjective HPI HPI Jarred Fair is a 83 year old female who presents today for CC of cough, sob, wheezing. This started 3 weeks ago. Has tried otc medication and asthma medication. Symptoms are worsened by nothing. Risk factors hx of asthma. nonsmoker. .Patient presents with: Cough: Cough and SOB x 3-4 weeks PAST MEDICAL HISTORY Diagnosis Date Allergic rhinitis, cause unspecified Allergic rhinitis Benign neoplasm of colon Disorder of bone and cartilage, unspecified Dysmetabolic syndrome X 06/28/2006 Started on Januvia by Dr. Toure for DM prevention since did not tolerate metformin Nonrheumatic aortic insufficiency with aortic stenosis Dr. Olguin (patient support assistant). S/P [facility] 12/2016 Obesity, unspecified Other diseases of pharynx, not elsewhere classified(478.29) Personal history of colonic polyps Pure hyperglyceridemia Snoring Unspecified asthma(493.90) Unspecified cardiovascular disease AI and some CAD on cath (Clau follows) Unspecified essential hypertension Unspecified hypothyroidism PAST SURGICAL HISTORY Procedure Laterality Date CHOLECYSTECTOMY Cholecystectomy COLONOSCOPY FLX DX W/COLLJ SPEC WHEN PFRMD 05/13/2000 Colonoscopy COLONOSCOPY FLX DX W/COLLJ SPEC WHEN PFRMD 06/15/2006 Colonoscopy- TA polyp COLONOSCOPY FLX DX W/COLLJ SPEC WHEN PFRMD 05/22/2015 Colonoscopy COLSC FLX W/RMVL OF TUMOR POLYP LESION SNARE TQ 03/27/2010 COLSC FLX W/RMVL OF TUMOR POLYP LESION SNARE TQ 05/28/2020 DILATION & CURETTAGE DX&/THER NONOBSTETRIC Dilation & curettage EYE EXAM & TREATMENT 01/07/2012 No diabetic retinopathy detected LIG/TRNSXJ FLP TUBE ABDL/VAG APPR UNI/BI Tubal ligation PAST SURGICAL HISTORY OF 02/20/2002 parathyroid resection (Dr. 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 Ferguson took 3 skin biopsies PAST SURGICAL HISTORY OF 12/22/2016 [facility] STRESS TEST 01/12/2016 ALLERGIES Fragrances, Simvastatin, Jelly Beans, Nifedipine, Perfume, Smoke, and Vinegar MEDICATIONS levothyroxine (SYNTHROID) 137 mcg tablet Take 1 tablet by mouth daily before breakfast. Plus add half pill on Sundays (total 7.5 pills taken per week) albuterol HFA (VENTOLIN HFA) 90 mcg/actuation inhaler Inhale 2 Puffs as instructed every 4 hours asneeded. montelukast (SINGULAIR) 10 mg tablet Take 1 tablet by mouth once daily. As directed CPAP Continue CPAP at 9cm H2O with humidification. Refills for Mask (per patient preference) optional chin strap (if indicated) , filters, tubing, humidifier and lifetime supplies. G47.33 rosuvastatin (CRESTOR) 5 mg tablet Take 1 tablet by mouth two times a week. Miscellaneous Medical Supply Potassium OTC 1 capsule once daily Magnesium 250 mg tab Take 250 mg by mouth once daily. TURMERIC ORAL Take 1 Dose by mouth two times a day. 1 gummie twice daily ZINC ORAL Take 1 Dose by mouth two times a day. 1 gummi two times daily ezetimibe (ZETIA) 10 mg tablet Take 10 mg by mouth once daily. 5 days a week fluticasone (FLONASE) 50 mcg/actuation nasal spray Use 2 Sprays in each nostril once daily as needed for cold/allergy symptoms. Rinse mouth after use. clobetasol (TEMOVATE) 0.05 % ointment amLODIPine (NORVASC) 10 mg tablet Take 1 tablet by mouth once daily. (Dr. Olguin) ubidecarenone (CO Q-10 ORAL) Take by mouth once daily. lisinopril (ZESTRIL, PRINIVIL) 40 mg tablet Take 1 tablet by mouth once daily. Multivitamin capsule Take 1 capsule by mouth once daily. furosemide (LASIX) 40 mg tablet Take 40 mg by mouth once daily. vitamin e 1,000 unit capsule Take 1,000 Units by mouth once daily. BIOTIN ORAL Take by mouth. VITAMIN A PALMITATE ORAL Take by mouth. Cetirizine 10 mg cap Take by mouth. Cholecalciferol, Vitamin D3, 1,000 unit cap Take 1 capsule by mouth once daily. aspirin, enteric coated (ASPIRIN, ENTERIC COATED) 81 mg EC tablet Take 1 tablet by mouth once daily. COMPOUNDED PRESCRIPTION CPAP head gear Diagnosis :OPHELIA 327.23 OMEGA-3 FATTY ACIDS-FISH OIL 300 MG-1,000 MG CAP Take one(1) tablet daily. diphenhydramine hcl(BENADRYL 25 MG CAP) Take one(1) tablet daily at bedtime as necessary (uses 5-6 x's a week) carvedilol (COREG) 25 mg tablet Take 25 mg by mouth two times a day with meals. carvedilol (COREG) 3.125 mg tablet Take 1 tablet by mouth two times a day. (Patient not taking: Reported on 05/28/2024) FAMILY HISTORY Problem Relation Age of Onset Heart Mother Hypertension Mother Colon Cancer Father Heart Brother x2 Hypertension Brother Diabetes Brother Social History Tobacco Use Smoking status: Never Smokeless tobacco: Never Substance Use Topics Alcohol use: No Drug use: No Review of Systems Constitutional: Negative for chills, fatigue and fever. HENT: Negative for ear discharge, ear pain, rhinorrhea, sinus pressure, sinus pain and sore throat. Eyes: Negative for discharge and redness. Respiratory: Positive for cough, shortness of breath and wheezing. Cardiovascular: Negative for chest pain. Skin: Negative for rash. Objective BP 122/64 Pulse 65 Temp 36.3 C (97.3 F) (Tympanic) Resp 18 Wt 99.7 kg (219 lb 12.8 oz) LMP 09/04/2001 SpO2 99% BMI 43.65 kg/m Physical Exam Constitutional: General: She is not in acute distress. Appearance: She is not toxic-appearing or diaphoretic. HENT: Head: Normocephalic and atraumatic. Cardiovascular: Rate and Rhythm: Normal rate and regular rhythm. Heart sounds: Normal heart sounds, S1 normal and S2 normal. Pulmonary: Effort: Pulmonary effort is normal. Breath sounds: Examination of the right-lower field reveals decreased breath sounds. Examination ofthe left-lower field reveals decreased breath sounds. Decreased breath sounds present. No wheezing,rhonchi or rales. Neurological: Mental Status: She is alert and oriented to person, place, and time. {ASSESSMENT/PLAN: 1. Community acquired pneumonia, unspecified laterality - ICD9: 486, ICD10: J18.9 (primary diagnosis) - Discussed supportive care - Limit exposure to smoke and other inhaled irritants - Discussed possible red flags and when to seek medical attention -If you experience chest pain/shortness of breath go to ER -scheduled with pcp for f/u in 3 days. - AZITHROMYCIN 250 MG TABLET - AMOXICILLIN 875 MG-POTASSIUM CLAVULANATE 125 MG TABLET 2. Wheeze - ICD9: 786.07, ICD10: R06.2 - XR CHEST 2V FRONTAL/LAT IMPRESSION: Questionable hazy opacities in the bilateral lower lungs. Consider short-term follow-up. Mild prominence of the cardiac silhouette. Dictated by : MD Romario SHAW APRN.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 History and Record Review External record(s) reviewed: prior outpatient record. Disposition The patient was discharged. Procedures documented in this encounterSelect [facility] [place]-2025 NoteHNO ID: [id number] Author: ROMARIO HURST APRN.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 Service: ? Author Type: Nurse Practitioner Type: Progress Notes Filed: 05/28/2024 18:05 Note Text: [facility] Subjective HPI HPI Jarred Fair is a 83 year old female who presents today for CC of cough, sob, wheezing. This started 3 weeks ago. Has tried otc medication and asthma medication. Symptoms are worsened by nothing. Risk factors hx of asthma. nonsmoker. .Patient presents with: Cough: Cough and SOB x 3-4 weeks PAST MEDICAL HISTORY Diagnosis Date Allergic rhinitis, cause unspecified Allergic rhinitis Benign neoplasm of colon Disorder of bone and cartilage, unspecified Dysmetabolic syndrome X 06/28/2006 Started on Januvia by Dr. Toure for DM prevention since did not tolerate metformin Nonrheumatic aortic insufficiency with aortic stenosis Dr. Olguin (patient support assistant). S/P [facility] 12/2016 Obesity, unspecified Other diseases of pharynx, not elsewhere classified(478.29) Personal history of colonic polyps Pure hyperglyceridemia Snoring Unspecified asthma(493.90) Unspecified cardiovascular disease AI and some CAD on cath (Clau follows) Unspecified essential hypertension Unspecified hypothyroidism PAST SURGICAL HISTORY Procedure Laterality Date CHOLECYSTECTOMY Cholecystectomy COLONOSCOPY FLX DX W/COLLJ SPEC WHEN PFRMD 05/13/2000 Colonoscopy COLONOSCOPY FLX DX W/COLLJ SPEC WHEN PFRMD 06/15/2006 Colonoscopy- TA polyp COLONOSCOPY FLX DX W/COLLJ SPEC WHEN PFRMD 05/22/2015 Colonoscopy COLSC FLX W/RMVL OF TUMOR POLYP LESION SNARE TQ 03/27/2010 COLSC FLX W/RMVL OF TUMOR POLYP LESION SNARE TQ 05/28/2020 DILATION AND CURETTAGE DXAND/THER NONOBSTETRIC Dilation AND curettage EYE EXAM AND TREATMENT 01/07/2012 No diabetic retinopathy detected LIG/TRNSXJ FLP TUBE ABDL/VAG APPR UNI/BI Tubal ligation PAST SURGICAL HISTORY OF 02/20/2002 parathyroid resection (Dr. 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 Ferguson took 3 skin biopsies PAST SURGICAL HISTORY OF 12/22/2016 [facility] STRESS TEST 01/12/2016 ALLERGIES Fragrances, Simvastatin, Jelly Beans, Nifedipine, Perfume, Smoke, and Vinegar MEDICATIONS levothyroxine (SYNTHROID) 137 mcg tablet Take 1 tablet by mouth daily before breakfast. Plus add half pill on Sundays (total 7.5 pills taken per week) albuterol HFA (VENTOLIN HFA) 90 mcg/actuation inhaler Inhale 2 Puffs as instructed every 4 hours as needed. montelukast (SINGULAIR) 10 mg tablet Take 1 tablet by mouth once daily. As directed CPAP Continue CPAP at 9cm H2O with humidification. Refills for Mask (per patient preference) optional chin strap (if indicated) , filters, tubing, humidifier and lifetime supplies. G47.33 rosuvastatin (CRESTOR) 5 mg tablet Take 1 tablet by mouth two times a week. Miscellaneous Medical Supply Potassium OTC 1 capsule once daily Magnesium 250 mg tab Take 250 mg by mouth once daily. TURMERIC ORAL Take 1 Dose by mouth two times a day. 1 gummie twice daily ZINC ORAL Take 1 Dose by mouth two times a day. 1 gummi two times daily ezetimibe (ZETIA) 10 mg tablet Take 10 mg by mouth once daily. 5 days a week fluticasone (FLONASE) 50 mcg/actuation nasal spray Use 2 Sprays in each nostril once daily as needed for cold/allergy symptoms. Rinse mouth after use. clobetasol (TEMOVATE) 0.05 % ointment amLODIPine (NORVASC) 10 mg tablet Take 1 tablet by mouth once daily. (Dr. Olguin) ubidecarenone (CO Q-10 ORAL) Take by mouth once daily. lisinopril (ZESTRIL, PRINIVIL) 40 mg tablet Take 1 tablet by mouth once daily. Multivitamin capsule Take 1 capsule by mouth once daily. furosemide (LASIX) 40 mg tablet Take 40 mg by mouth once daily. vitamin e 1,000 unit capsule Take 1,000 Units by mouth once daily. BIOTIN ORAL Take by mouth. VITAMIN A PALMITATE ORAL Take by mouth. Cetirizine 10 mg cap Take by mouth. Cholecalciferol, Vitamin D3, 1,000 unit cap Take 1 capsule by mouth once daily. aspirin, enteric coated (ASPIRIN, ENTERIC COATED) 81 mg EC tablet Take 1 tablet by mouth once daily. COMPOUNDED PRESCRIPTION CPAP head gear Diagnosis :OPHELIA 327.23 OMEGA-3 FATTY ACIDS-FISH OIL 300 MG-1,000 MG CAP Take one(1) tablet daily. diphenhydramine hcl(BENADRYL 25 MG CAP) Take one(1) tablet daily at bedtime as necessary (uses 5-6 x's a week) carvedilol (COREG) 25 mg tablet Take 25 mg by mouth two times a day with meals. carvedilol (COREG) 3.125 mg tablet Take 1 tablet by mouth two times a day. (Patient not taking: Reported on 05/28/2024) FAMILY HISTORY Problem Relation Age of Onset Heart Mother Hypertension Mother Colon Cancer Father Heart Brother x2 Hypertension Brother Diabetes Brother Social History Tobacco Use Smoking status: Never Smokeless tobacco: Never Subs (more content not included)...[facility]02-11-2025 Evaluation note* Diagnosis Onset Date Resolution Status Admit Date Essential hypertension chronic [facility] 2024 9:43am H/O aortic valve replacement December 22, 2016April 9:43am Hyperlipidemia chronic April 072024 9:43am [facility] Work Phone: 1(735) 420-185902-11-2025 Evaluation note* Diagnosis Onset Date Resolution Status Admit Date Essential hypertension chronic 2024 9:43am H/O aortic valve replacement December 22, 2016April 9:43am Hyperlipidemia chronic April 072024 9:43am Shortness of breath acute July 052024 12:51pm Essential hypertension chronic Ma 2024 12:51pm H/O aortic valve replacement December 22, 2016July 05, 2024 12:51pm Hyperlipidemia chronic July 05 12:51pm [facility] Work Phone: 1(164) 951-786702-11-2025 Evaluation note* Diagnosis Onset Date Resolution Status Admit Date Essential hypertension chronic Fe 2024 9:43am H/O aortic valve replacement December 22, 2016April 9:43am Hyperlipidemia chronic April 072024 9:43am Shortness of breath acute July 052024 12:51pm Essential hypertension chronic Ma y 5 12:51pm H/O aortic valve replacement December 22, 2016 chronic July 05, 2024 12:51pm Hyperlipidemia chronic July 05 025 12:51pm Shortness of breath acute July 132024 8:55am Essential hypertension chronic Ma y 2024 8:55am H/O aortic valve replacement December 22, 2016 chronic July 13, 2024 8:55am Hyperlipidemia chronic July 13 025 8:55am [facility] Work Phone: 1(443) 632-963102-11-2025 Evaluation note* Diagnosis Onset Date Resolution Status Admit Date Essential hypertension chronic Fe bru2024 9:43am H/O aortic valve replacement December 22, 2016 chronic April 9:43am Hyperlipidemia chronic April 072024 9:43am Shortness of breath acute July 052024 12:51pm Essential hypertension chronic 2024 12:51pm H/O aortic valve replacement December 22, 2016July 05, 2024 12:51pm Hyperlipidemia chronic July 05 025 12:51pm Shortness of breath acute July 132024 8:55am Essential hypertension chronic 2024 8:55am H/O aortic valve replacement December 22, 2016 chronic July 13, 2024 8:55am Hyperlipidemia chronic July 13 025 8:55am Shortness of breath acute July 062024 11:59am [facility] Work Phone: 1(685) 800-898512-20-2024 NoteHNO ID: [id number] Author: PAM MCGILL MD Service: ? Author Type: Physician Type: Progress Notes Filed: 02/24/2024 10:07 Note Text: This note was created using iGoriter. Subjective Jarred Fair is a 83 year old female. Patient presents with: Follow up 4 month SUBJECTIVE: Jarred Fair is a 83 year old year old lady here today for 4 month follow up appointment for review of medical conditions. Jarred Fair is an 83-year-old female with a history of OPHELIA, asthma, HTN, HLD, DM, and osteoporosis, presenting for a 4-month follow-up visit. Jarred reports consistent use of her CPAP machine at a setting of 9 cm H2O and is benefiting from its use. She requests refills for her CPAP supplies, including the mask, chin strap, filters, and humidifier. She also requests refills for her albuterol and Singulair, which are managed through [facility]. She confirms that her current supply of three Ventolin inhalers with one refill usually lasts her the entire year. She is currently taking rosuvastatin 5 mg tablets twice weekly, managed by Dr. Olguin, and has sufficient refills. She is also on lisinopril 40 mg daily, Lasix 40 mg daily, and Zetia five days a week. She takes carvedilol 3.125 mg twice daily, with a recent prescription adjustment to this dosage. She is using an [id number]-znmzmpv shampoo instead of clobetasol and is taking phtt-owb-ipmihew vitamin D, cetirizine, aspirin, omega-3 oils, CoQ10, a multivitamin, magnesium, vitamin A, vitamin E, and zinc. She has discontinued apple cider vinegar and glucosamine chondroitin, opting for turmeric instead, which she finds more effective. She has also added an aubt-slu-cehfsbr potassium supplement, one capsule daily, since January. Jarred reports sinus drainage since , which she attributes to allergies. She is currently using Flonase twice a week, saline solution at night, and Zyrtec routinely. She denies any pain or pressure in the sinuses, teeth aching, gum aching, fevers, or chills. She also reports swelling in her lower extremities, which she notes is slightly worse at night. She has ordered support socks and has been wearing an ankle brace, but found it too tight by night and decided to switch to the support socks. She denies checking her blood pressure at home recently but reports it has been doing okay when she does check it. She has not seen her eye doctor, Dr. Castañeda, this year but plans to call and schedule an appointment. She declines a flu shot today but is interested in getting a tetanus shot at the pharmacy. She is also considering the shingles and RSV vaccines. PAST MEDICAL HISTORY Diagnosis Date Allergic rhinitis, cause unspecified Allergic rhinitis Benign neoplasm of colon Disorder of bone and cartilage, unspecified Dysmetabolic syndrome X 06/28/2006 Started on Januvia by Dr. Toure for DM prevention since did not tolerate metformin Nonrheumatic aortic insufficiency with aortic stenosis Dr. Olguin (patient support assistant). [facility] Obesity, unspecified Other diseases of pharynx, not elsewhere classified(478.29) Personal history of colonic polyps Pure hyperglyceridemia Snoring Unspecified asthma(493.90) Unspecified cardiovascular disease AI and some CAD on cath (Clau follows) Unspecified essential hypertension Unspecified hypothyroidism Current Outpatient Medications Medication Sig Magnesium 250 mg tab Take 250 mg by mouth once daily. TURMERIC ORAL Take 1 Dose by mouth two times a day. 1 gummie twice daily ZINC ORAL Take 1 Dose by mouth two times a day. 1 gummi two times daily levothyroxine (SYNTHROID) 137 mcg tablet Take 1 tablet by mouth daily before breakfast. Plus add half pill on Sundays (total 7.5 pills taken per week) ezetimibe (ZETIA) 10 mg tablet Take 10 mg by mouth once daily. 5 days a week fluticasone (FLONASE) 50 mcg/actuation nasal spray Use 2 Sprays in each nostril once daily as needed for cold/allergy symptoms. Rinse mouth after use. clobetasol (TEMOVATE) 0.05 % ointment amLODIPine (NORVASC) 10 mg tablet Take 1 tablet by mouth once daily. (Dr. Olguin) ubidecarenone (CO Q-10 ORAL) Take by mouth once daily. lisinopril (ZESTRIL, PRINIVIL) 40 mg tablet Take 1 tablet by mouth once daily. Multivitamin capsule Take 1 capsule by mouth once daily. furosemide (LASIX) 40 mg tablet Take 40 mg by mouth once daily. vitamin e 1,000 unit capsule Take 1,000 Units by mouth once daily. BIOTIN ORAL Take by mouth. VITAMIN A PALMITATE ORAL Take by mouth. Cetirizine 10 mg cap Take by mouth. Cholecalciferol, Vitamin D3, 1,000 unit cap Take 1 capsule by mouth once daily. aspirin, enteric coated (ASPIRIN, ENTERIC COATED) 81 mg EC tablet Take 1 tablet by mouth once daily. COMPOUNDED PRESCRIPTION CPAP head gear Diagnosis :OPHELIA 327.23 OMEGA-3 FATTY ACIDS-FISH OIL 300 MG-1,000 MG CAP Take one(1) tablet daily. diphenhydramine hcl(BENADRYL 25 MG CAP) Take one(1) tablet lianet (more content not included)...[facility]12-20-2024 History of Present illness Narrative* Pam Mcgill MD - 02/24/2024 9:22 AM EST This note was created using [employer]. Subjective Jarred Fair is a 83 year old female. Patient presents with: Follow up 4 month SUBJECTIVE: Jarred Fair is a 83 year old year old lady here today for 4 month follow up appointment for review of medical conditions. Jarred Fair is an 83-year-old female with a history of OPHELIA, asthma, HTN, HLD, DM, and osteoporosis, presenting for a 4-month follow-up visit. Jarred reports consistent use of her CPAP machine at a setting of 9 cm H2O and is benefiting from itsuse. She requests refills for her CPAP supplies, including the mask, chin strap, filters, and humidifier. She also requests refills for her albuterol and Singulair, which are managed through [facility]. She confirms that her current supply of three Ventolin inhalers with one refill usually lasts her the entire year. She is currently taking rosuvastatin 5 mg tablets twice weekly, managed by Dr. Olguin, and has sufficient refills. She is also on lisinopril 40 mg daily, Lasix 40 mg daily, and Zetia five days a week.She takes carvedilol 3.125 mg twice daily, with a recent prescription adjustment to this dosage. She is using an bowm-lpd-apjqgxr shampoo instead of clobetasol and is taking hzem-wqr-wwwrxif vitamin D, cetirizine, aspirin, omega-3 oils, CoQ10, a multivitamin, magnesium, vitamin A, vitamin E, and zinc. She has discontinued apple cider vinegar and glucosamine chondroitin, opting for turmeric instead, which she finds more effective. She has also added an byel-jkp-brdrzda potassium supplement, one c apsule daily, since January. Jarred reports sinus drainage since , which she attributes to allergies. She is currentlyusing Flonase twice a week, saline solution at night, and Zyrtec routinely. She denies any pain or pressure in the sinuses, teeth aching, gum aching, fevers, or chills. She also reports swelling in her lower extremities, which she notes is slightly worse at night. Santana ordered support socks and has been wearing an ankle brace, but found it too tight by night and decided to switch to the support socks. She denies checking her blood pressure at home recently but reports it has been doing okay when she does check it. She has not seen her eye doctor, Dr. Castañeda, this year but plans to call and schedule an appointment.She declines a flu shot today but is interested in getting a tetanus shot at the pharmacy. She is also considering the shingles and RSV vaccines. PAST MEDICAL HISTORY Diagnosis Date Allergic rhinitis, cause unspecified Allergic rhinitis Benign neoplasm of colon Disorder of bone and cartilage, unspecified Dysmetabolic syndrome X 06/28/2006 Started on Januvia by Dr. Toure for DM prevention since did not tolerate metformin Nonrheumatic aortic insufficiency with aortic stenosis Dr. Olguin (patient support assistant). S/P [facility] 12/2016 Obesity, unspecified Other diseases of pharynx, not elsewhere classified(478.29) Personal history of colonic polyps Pure hyperglyceridemia Snoring Unspecified asthma(493.90) Unspecified cardiovascular disease AI and some CAD on cath (Clau follows) Unspecified essential hypertension Unspecified hypothyroidism Current Outpatient Medications Medication Sig Magnesium 250 mg tab Take 250 mg by mouth once daily. TURMERIC ORAL Take 1 Dose by mouth two times a day. 1 gummie twice daily ZINC ORAL Take 1 Dose by mouth two times a day. 1 gummi two times daily levothyroxine (SYNTHROID) 137 mcg tablet Take 1 tablet by mouth daily before breakfast. Plus add half pill on Sundays (total 7.5 pills taken per week) ezetimibe (ZETIA) 10 mg tablet Take 10 mg by mouth once daily. 5 days a week fluticasone (FLONASE) 50 mcg/actuation nasal spray Use 2 Sprays in each nostril once daily as needed for cold/allergy symptoms. Rinse mouth after use. clobetasol (TEMOVATE) 0.05 % ointment amLODIPine (NORVASC) 10 mg tablet Take 1 tablet by mouth once daily. (Dr. Olguin) ubidecarenone (CO Q-10 ORAL) Take by mouth once daily. lisinopril (ZESTRIL, PRINIVIL) 40 mg tablet Take 1 tablet by mouth once daily. Multivitamin capsule Take 1 capsule by mouth once daily. furosemide (LASIX) 40 mg tablet Take 40 mg by mouth once daily. vitamin e 1,000 unit capsule Take 1,000 Units by mouth once daily. BIOTIN ORAL Take by mouth. VITAMIN A PALMITATE ORAL Take by mouth. Cetirizine 10 mg cap Take by mouth. Cholecalciferol, Vitamin D3, 1,000 unit cap Take 1 capsule by mouth once daily. aspirin, enteric coated (ASPIRIN, ENTERIC COATED) 81 mg EC tablet Take 1 tablet by mouth once daily. COMPOUNDED PRESCRIPTION CPAP head gear Diagnosis :OPHELIA 327.23 OMEGA-3 FATTY ACIDS-FISH OIL 300 MG-1,000 MG CAP Take one(1) tablet daily. diphenhydramine hcl(BENADRYL 25 MG CAP) Take one(1) tablet daily at bedtime as necessary (uses 5-6 x's a week) albuterol HFA (VENTOLIN HFA) 90 mcg/actuation inhaler Inhale 2 Puffs as instructed every 4 hours asneeded. montelukast (SINGULAIR) 10 mg tablet Take 1 tablet by mouth once daily. As directed CPAP Continue CPAP at 9cm H2O with humidification. Refills for Mask (per patient preference) optional chin strap (if indicated) , filters, tubing, humidifier and lifetime supplies. G47.33 rosuvastatin (CRESTOR) 5 mg tablet Take 1 tablet by mouth two times a week. carvedilol (COREG) 3.125 mg tablet Take 1 tablet by mouth two times a day. Miscellaneous Medical Supply Potassium OTC 1 capsule once daily No current facility-administered medications for this visit. Review of Systems Objective BP 136/68 Pulse 77 Temp 36.1 C (97 F) Resp 16 Wt 98.3 kg (216 lb 11.4 oz) LMP 09/04/2001 SpO2 96% BMI 43.04 kg/m Last 5 Encounter Wt Readings: Date: Wt: 02/24/2024 98.3 kg (216 lb 11.4 oz) 10/18/2023 99.1 kg (218 lb 7.6 oz) 02/21/2023 97.5 kg (215 lb) 02/01/2023 97.1 kg (214 lb) 07/13/2022 97.1 kg (214 lb) No waist measurement recorded Estimated body mass index is 43.04 kg/m as calculated from the following: Height as of 08/12/20: 151.1 cm (4' 11.5). Weight as of this encounter: 98.3 kg (216 lb 11.4 oz). Last 5 Encounter BP Readings: Date: BP: 02/24/2024 136/68 10/18/2023 136/78 02/21/2023 122/68 02/01/2023 137/78 07/13/2022 136/80 02/24/24 0914 02/24/24 0958 BP: 136/68 128/68 Pulse: 77 Resp: 16 Temp: 36.1 C (97 F) SpO2: 96% Weight: 98.3 kg (216 lb 11.4 oz) Physical Exam Constitutional: Appearance: Normal appearance. She is obese. HENT: Head: Normocephalic. Eyes: Conjunctiva/sclera: Conjunctivae normal. Cardiovascular: Rate and Rhythm: Normal rate and regular rhythm. Heart sounds: Normal heart sounds. Pulmonary: Effort: Pulmonary effort is normal. Breath sounds: Normal breath sounds. Musculoskeletal: Right lower le+ Pitting Edema present. Left lower le+ Pitting Edema present. Skin: General: Skin is warm and dry. Neurological: General: No focal deficit present. Mental Status: She is alert and oriented to person, place, and time. Psychiatric: Attention and Perception: Attention and perception normal. Mood and Affect: Mood and affect normal. Speech: Speech normal. Behavior: Behavior normal. Thought Content: Thought content normal. Judgment: Judgment normal. Latest Ref Rng 02/10/2023 06/08/2023 10/10/2023 02/20/2024 Protein, Total 6.3 - 8.0 g/dL 6.9 6.6 6.7 6.6 Albumin 3.9 - 4.9 g/dL 4.2 4.4 4.2 4.2 Calcium 8.5 - 10.2 mg/dL 10.1 10.7 (H) 10.3 (H) 10.4 (H) Bilirubin, Total 0.2 - 1.3 mg/dL 0.4 0.4 0.5 0.4 Alkaline Phosphatase 34 - 123 U/L 107 110 102 119 AST 13 - 35 U/L 19 22 29 25 ALT 7 - 38 U/L 18 30 34 33 Glucose 74 - 99 mg/dL 136 (H) 140 (H) 145 (H) 153 (H) BUN 7 - 21 mg/dL 16 22 (H) 17 20 Creatinine 0.58 - 0.96 mg/dL 0.96 1.31 (H) 0.94 0.87 Sodium 136 - 144 mmol/L 140 139 138 139 Potassium 3.7 - 5.1 mmol/L 3.0 (L) 4.2 4.1 3.5 (L) Chloride 98 - 107 mmol/L 99 101 100 100 CO2 22 - 30 mmol/L 28 25 27 26 Anion Gap 8 - 15 mmol/L 13 13 11 13 eGFR >=60 mL/min/1.73m 60 41 (L) 61 67 WBC 3.70 - 11.00 k/uL 6.41 6.31 RBC 3.90 - 5.20 m/uL 4.28 4.46 Hemoglobin 11.5 - 15.5 g/dL 12.9 13.3 Hematocrit 36.0 - 46.0 % 39.1 41.2 MCV 80.0 - 100.0 fL 91.4 92.4 MCH 26.0 - 34.0 pg 30.1 29.8 MCHC 30.5 - 36.0 g/dL 33.0 32.3 RDW-CV 11.5 - 15.0 % 13.5 13.9 Platelet Count 150 - 400 k/uL 236 224 MPV 9.0 - 12.7 fL 11.4 11.4 Absolute nRBC <0.01 k/uL <0.01 <0.01 Cholesterol, Total <200 mg/dL 269 (H) 191 Triglyceride <150 mg/dL 287 (H) 291 (H) HDL Cholesterol >39 mg/dL 37 (L) 40 Non HDL Cholesterol <130 mg/dL 232 (H) 151 (H) Fasting Time hrs 12 12 VLDL Cholesterol <30 mg/dL 57 (H) 58 (H) TC:HDL Ratio <5.10 7.27 (H) 4.78 LDL Cholesterol <100 mg/dL 175 (H) 93 LDL:HDL Ratio <2.54 4.73 (H) 2.33 Creatinine, Ur Random (UCRR) 20.0 - 300.0 mg/dL 49.7 Albumin, Urine Random mg/L 40.0 Albumin/Creat Ratio <30 mg/g 80 (H) Hemoglobin A1C 4.3 - 5.6 % 6.1 (H) 6.9 (H) 6.6 (H) 7.2 (H) Estimated Average Glucose mg/dL 128 151 143 160 Vitamin D 25 Hydroxy 31.0 - 80.0 ng/mL 41.3 60.7 62.6 44.6 PTH, Intact 15 - 65 pg/mL 94 (H) 91 (H) 86 (H) TSH 0.270 - 4.200 mIU/L 1.350 3.030 1.020 Free T4 0.9 - 1.7 ng/dL 1.4 1.2 1.3 Free T3 2.3 - 4.1 pg/mL 2.1 (L) 2.8 Legend: (H) High (L) Low Assessment and Plan # Controlled type 2 diabetes mellitus without complication, without long-term current use of insulin (HCC) (E11.9) - A1c increased to 7.2%. - Discussed dietary modifications to reduce carbohydrate intake, including bread, pasta, rice, sweets, and processed foods. - Continue current medication regimen. - Ordered repeat A1c test prior to next appointment on June 18. # OPHELIA on CPAP (G47.33) - Patient is compliant with CPAP therapy at a setting of 9 cm H2O. - Provided refills for CPAP supplies including mask, chin strap, filters, and humidifier. # Age-related osteoporosis without current pathological fracture (M81.0) - Recent DEXA scan shows T-score of -2.9 in the right femoral neck, indicating osteoporosis; left hip and spine in osteopenia range. - Educated on the importance of weight-bearing exercises to improve bone density. - Patient prefers to focus on exercise rather than pharmacological treatment. - Plan to re-evaluate bone density in 2025. # Acquired hypothyroidism (E03.9) - TSH improved to 1.020, T4 and T3 levels are within normal range. - Continue current thyroid medication. - Will monitor thyroid function tests annually. # Hypercalcemia (E83.52) - Serum calcium levels slightly elevated but improving, currently at 10.7 mg/dL. - Advised to avoid additional calcium supplements. - Will recheck calcium levels at next appointment. # Vitamin D deficiency (E55.9) - Vitamin D levels are stable in the 40s. - Continue current supplementation. - Will monitor levels through winter to ensure they remain stable. # S/P subtotal parathyroidectomy (Z98.890) - No signs of hyperactivity in remaining parathyroid tissue. - Continue monitoring calcium and parathyroid hormone levels. # Mild intermittent asthma without complication (J45.20) - Provided refills for Singulair and Ventolin inhalers through [facility]. - Continue current asthma management regimen. # Essential (primary) hypertension (I10) - Blood pressure well-controlled at 128/68 mmHg. - Continue current antihypertensive medications: carvedilol 3.125 mg BID and lisinopril 40 mg daily. - Advised to monitor blood pressure at home. # Mixed hyperlipidemia (E78.2) - LDL cholesterol at 93 mg/dL, triglycerides elevated at 290 mg/dL. - Continue rosuvastatin 5 mg twice weekly and Zetia 5 days a week. - Discussed dietary modifications to reduce triglycerides. - Ordered lipid panel prior to next appointment. # Screening for diabetic retinopathy (Z13.5) - Last eye exam on 02/04/[address] Castañeda showed early cataracts, no diabetic retinopathy. - Patient to schedule next eye exam. # Encounter for immunization (Z23) - Discussed options for flu, tetanus, shingles, and RSV vaccines. - Patient declined flu shot today. # Bilateral leg edema (R60.0) - Mild edema noted, more pronounced at night. - Patient ordered compression stockings. - Advised to avoid tight ankle braces. Pam Mcgill MD [facility] History of Present illness Narrative* Tea Cuevas, RT(R) - 12/05/2023 2:15 PM EDT Radiology Service Progress Note PATIENT NAME: Jarred Fair DATE OF SERVICE: December 05, 2023 TIME: 2:19 PM PATIENT IDENTITY VERIFICATION COMPLETED USING TWO (2) IDENTIFIERS: Name and Date of confirmedby patient verbally. FALL SCREENING: Has the patient had 2 falls in the last year or 1 fall with injury or currently using an Ambulatory Assistive Device (Walker, Cane, Wheelchair, Crutches, etc.)? No PATIENT GENDER DATA: Female. status: : No status: NO. PATIENT RELEVANT IMPLANT DATA REVIEWED: Not Applicable PATIENT PRESENTS WITH AN IMPLANTABLE OR ATTACHED SENIOR APPLICATION PROGRAMMER: No RADIOLOGY DEPARTMENT: Bone Density PERIPHERAL IV DATA: Not applicable SIGNED BY: RT Mary(Isai) December 05, 2023 2:19 PM documented in this encounterSelect [facility]24 NoteHNO ID: [id number] Author: TEA CUEVAS RT(R) Service: ? Author Type: Technologist Type: Progress Notes Filed: 12/05/2023 14:30 Note Text: Radiology Service Progress Note PATIENT NAME: Jarred Fair DATE OF SERVICE: December 05, 2023 TIME: 2:19 PM PATIENT IDENTITY VERIFICATION COMPLETED USING TWO (2) IDENTIFIERS: Name and Date of confirmed by patient verbally. FALL SCREENING: Has the patient had 2 falls in the last year or 1 fall with injury or currently using an Ambulatory Assistive Device (Walker, Cane, Wheelchair, Crutches, etc.)? No PATIENT GENDER DATA: Female. status: : No status: NO. PATIENT RELEVANT IMPLANT DATA REVIEWED: Not Applicable PATIENT PRESENTS WITH AN IMPLANTABLE OR ATTACHED SENIOR APPLICATION PROGRAMMER: No RADIOLOGY DEPARTMENT: Bone Density PERIPHERAL IV DATA: Not applicable SIGNED BY: RT Mary(Isai) December 05, 2023 2:19 [facility]08-13-2024 Instructions* Patient Instructions* Pam Mcgill MD - 10/18/2023 9:03 AM EDT -Continue drinking water to maintain kidney function - Monitor for symptoms of hypothyroidism, such as increased tiredness, dry skin, or constipation - Add a half pill of your current thyroid medication dose on Sundays - Maintain a balanced diet, incorporating fruits, vegetables, and proteins - Consider incorporating regular exercise into your routine, aiming for 20 minutes a day, six days a week - Your next appointment is scheduled for April 22 BONE MINERAL DENSITY PATIENT INSTRUCTIONS Bone mineral density testing measures the amount of calcium in certain parts of your bones. This information determines how strong your bones are. The test is used to detect osteoporosis, a disease in which the bone's mineral content and density are low, increasing a person's risk of fractures. Thelumbar spine (lower back) and the hip are the skeletal sites usually examined. For the test, remember that: 1. You cannot take this test if you are . 2. Eat a normal diet on the day of the test. 3. Take your medications as you normally would. 4. DO NOT take calcium supplements (such as Tums) for 24 hours before the test. 5. On the day of the test, leave valuables (jewelry or credit cards) at home. 6. The test should be performed prior to oral, rectal or IV contrast studies, or at least 7 days after any of these studies. For the test, you may be asked to wear a hospital gown. You will lie on your back, on a padded table, in a comfortable position. Generally, you can resume your usual activities immediately. documented in this encounterSelect [facility] [place]-13-2024 NoteHNO ID: [id number] Author: PAM MCGILL MD Service: ? Author Type: Physician Type: Progress Notes Filed: 10/21/2023 13:00 Note Text: This note was created using [employer]. Subjective Jarred Fair is a 83 year old female. Patient presents with: F/U 4 month: Labs prior SUBJECTIVE: Jarred Fair is a 83 year old year old lady here today for 4 month follow up appointment for review of medical conditions. Patient is an 83-year-old female with a history of diabetes, hypothyroidism, and parathyroidectomy, presenting for follow-up. She reports feeling drained and tired but notes that this is not worse than usual. She has gained approximately 5 lbs since her last visit, which she attributes to recent travel and family visits. She has been trying to make healthier food choices and has reduced her intake of soda, switching to herbal teas instead. She has not been motivated to exercise but is considering starting a new exercise routine. She is currently taking levothyroxine 137 mcg daily, and is wondering if a dose adjustment might help with her energy levels. Using CPAP routinely and benefits from use. See assessment and plan for other issues addressed. PAST MEDICAL HISTORY No date: Allergic rhinitis, cause unspecified Comment: Allergic rhinitis No date: Benign neoplasm of colon No date: Disorder of bone and cartilage, unspecified 06/28/2006: Dysmetabolic syndrome X Comment: Started on Januvia by Dr. Toure for DM prevention since did not tolerate metformin No date: Nonrheumatic aortic insufficiency with aortic stenosis Comment: Dr. Olguin (patient support assistant). S/P [facility] 12/2016 No date: Obesity, unspecified No date: Other diseases of pharynx, not elsewhere classified(478.29) No date: Personal history of colonic polyps No date: Pure hyperglyceridemia No date: Snoring No date: Unspecified asthma(493.90) No date: Unspecified cardiovascular disease Comment: AI and some CAD on cath (Clau follows) No date: Unspecified essential hypertension No date: Unspecified hypothyroidism Current Outpatient Medications Medication Sig Magnesium 250 mg tab Take 250 mg by mouth once daily. TURMERIC ORAL Take 1 Dose by mouth two times a day. 1 gummie twice daily ZINC ORAL Take 1 Dose by mouth two times a day. 1 gummi two times daily rosuvastatin (CRESTOR) 5 mg tablet Take 1 tablet by mouth one time a week. (Patient taking differently: Take 5 mg by mouth two times a week.) ezetimibe (ZETIA) 10 mg tablet Take 10 mg by mouth once daily. 5 days a week montelukast (SINGULAIR) 10 mg tablet Take 1 tablet by mouth once daily. As directed fluticasone (FLONASE) 50 mcg/actuation nasal spray Use 2 Sprays in each nostril once daily as needed for cold/allergy symptoms. Rinse mouth after use. CPAP Continue CPAP at 9cm H2O with humidification. Refills for Mask (per patient preference) optional chin strap (if indicated) , filters, tubing, humidifier and lifetime supplies. G47.33 albuterol HFA (VENTOLIN HFA) 90 mcg/actuation inhaler Inhale 2 Puffs as instructed every 4 hours as needed. clobetasol (TEMOVATE) 0.05 % ointment Clobetasol Propionate 0.05 % sham amLODIPine (NORVASC) 10 mg tablet Take 1 tablet by mouth once daily. (Dr. Olguin) glucosamine HCl/chondroitin mccarthy (GLUCOSAMINE-CHONDROITIN ORAL) Take by mouth once daily. ubidecarenone (CO Q-10 ORAL) Take by mouth once daily. lisinopril (ZESTRIL, PRINIVIL) 40 mg tablet Take 1 tablet by mouth once daily. carvedilol (COREG) 6.25 mg tablet Take 1 tablet by mouth twice daily. (Patient taking differently: Take 3.125 mg by mouth two times a day.) Multivitamin capsule Take 1 capsule by mouth once daily. furosemide (LASIX) 40 mg tablet Take 40 mg by mouth once daily. vitamin e 1,000 unit capsule Take 1,000 Units by mouth once daily. BIOTIN ORAL Take by mouth. VITAMIN A PALMITATE ORAL Take by mouth. Cetirizine 10 mg cap Take by mouth. Cholecalciferol, Vitamin D3, 1,000 unit cap Take 1 capsule by mouth once daily. aspirin, enteric coated (ASPIRIN, ENTERIC COATED) 81 mg EC tablet Take 1 tablet by mouth once daily. COMPOUNDED PRESCRIPTION CPAP head gear Diagnosis :OPHELIA 327.23 OMEGA-3 FATTY ACIDS-FISH OIL 300 MG-1,000 MG CAP Take one(1) tablet daily. diphenhydramine hcl(BENADRYL 25 MG CAP) Take one(1) tablet daily at bedtime as necessary (uses 5-6 x's a week) levothyroxine (SYNTHROID) 137 mcg tablet Take 1 tablet by mouth daily before breakfast. Plus add half pill on Sundays (total 7.5 pills taken per week) APPLE CIDER VINEGAR ORAL Take by mouth. Zinc 50 mg tab Take 1 tablet by mouth once daily. No current facility-administered medications for this visit. Review of Systems Objective BP 136/78 Pulse 78 Temp 36.4 ?C (97.5 ?F) Resp 16 Wt 99.1 kg (218 lb 7.6 oz) LMP 09/04/2001 SpO2 96% BMI 43.39 kg/m? Last 5 Encounter Wt Readings: Date: Wt: 10/18/2023 99.1 kg (218 lb 7.6 oz) 02/21/2023 97.5 kg (215 lb) (more content not included)...[facility]08-13-2024 History of Present illness Narrative* Pam Mcgill MD - 10/18/2023 8:24 AM EDT This note was created using [employer]. Subjective Jarred Fair is a 83 year old female. Patient presents with: F/U 4 month: Labs prior SUBJECTIVE: Jarred Fair is a 83 year old year old lady here today for 4 month follow up appointment for review of medical conditions. Patient is an 83-year-old female with a history of diabetes, hypothyroidism, and parathyroidectomy,presenting for follow-up. She reports feeling drained and tired but notes that this is not worse than usual. She has gained approximately 5 lbs since her last visit, which she attributes to recent travel and family visits. She has been trying to make healthier food choices and has reduced her intake of soda, switching to herbal teas instead. She has not been motivated to exercise but is considering starting a new exercise routine. She is currently taking levothyroxine 137 mcg daily, and is wondering if a dose adjustment might help with her energy levels. Using CPAP routinely and benefits from use. See assessment and plan for other issues addressed. PAST MEDICAL HISTORY No date: Allergic rhinitis, cause unspecified Comment: Allergic rhinitis No date: Benign neoplasm of colon No date: Disorder of bone and cartilage, unspecified 06/28/2006: Dysmetabolic syndrome X Comment: Started on Januvia by Dr. Toure for DM prevention since did not tolerate metformin No date: Nonrheumatic aortic insufficiency with aortic stenosis Comment: Dr. Olguin (patient support assistant). S/P [facility] 12/2016 No date: Obesity, unspecified No date: Other diseases of pharynx, not elsewhere classified(478.29) No date: Personal history of colonic polyps No date: Pure hyperglyceridemia No date: Snoring No date: Unspecified asthma(493.90) No date: Unspecified cardiovascular disease Comment: AI and some CAD on cath ([facility] follows) No date: Unspecified essential hypertension No date: Unspecified hypothyroidism Current Outpatient Medications Medication Sig Magnesium 250 mg tab Take 250 mg by mouth once daily. TURMERIC ORAL Take 1 Dose by mouth two times a day. 1 gummie twice daily ZINC ORAL Take 1 Dose by mouth two times a day. 1 gummi two times daily rosuvastatin (CRESTOR) 5 mg tablet Take 1 tablet by mouth one time a week. (Patient taking differently: Take 5 mg by mouth two times a week.) ezetimibe (ZETIA) 10 mg tablet Take 10 mg by mouth once daily. 5 days a week montelukast (SINGULAIR) 10 mg tablet Take 1 tablet by mouth once daily. As directed fluticasone (FLONASE) 50 mcg/actuation nasal spray Use 2 Sprays in each nostril once daily as needed for cold/allergy symptoms. Rinse mouth after use. CPAP Continue CPAP at 9cm H2O with humidification. Refills for Mask (per patient preference) optional chin strap (if indicated) , filters, tubing, humidifier and lifetime supplies. G47.33 albuterol HFA (VENTOLIN HFA) 90 mcg/actuation inhaler Inhale 2 Puffs as instructed every 4 hours asneeded. clobetasol (TEMOVATE) 0.05 % ointment Clobetasol Propionate 0.05 % sham amLODIPine (NORVASC) 10 mg tablet Take 1 tablet by mouth once daily. (Dr. Olguin) glucosamine HCl/chondroitin mccarthy (GLUCOSAMINE-CHONDROITIN ORAL) Take by mouth once daily. ubidecarenone (CO Q-10 ORAL) Take by mouth once daily. lisinopril (ZESTRIL, PRINIVIL) 40 mg tablet Take 1 tablet by mouth once daily. carvedilol (COREG) 6.25 mg tablet Take 1 tablet by mouth twice daily. (Patient taking differently: Take 3.125 mg by mouth two times a day.) Multivitamin capsule Take 1 capsule by mouth once daily. furosemide (LASIX) 40 mg tablet Take 40 mg by mouth once daily. vitamin e 1,000 unit capsule Take 1,000 Units by mouth once daily. BIOTIN ORAL Take by mouth. VITAMIN A PALMITATE ORAL Take by mouth. Cetirizine 10 mg cap Take by mouth. Cholecalciferol, Vitamin D3, 1,000 unit cap Take 1 capsule by mouth once daily. aspirin, enteric coated (ASPIRIN, ENTERIC COATED) 81 mg EC tablet Take 1 tablet by mouth once daily. COMPOUNDED PRESCRIPTION CPAP head gear Diagnosis :OPHELIA 327.23 OMEGA-3 FATTY ACIDS-FISH OIL 300 MG-1,000 MG CAP Take one(1) tablet daily. diphenhydramine hcl(BENADRYL 25 MG CAP) Take one(1) tablet daily at bedtime as necessary (uses 5-6 x's a week) levothyroxine (SYNTHROID) 137 mcg tablet Take 1 tablet by mouth daily before breakfast. Plus add half pill on Sundays (total 7.5 pills taken per week) APPLE CIDER VINEGAR ORAL Take by mouth. Zinc 50 mg tab Take 1 tablet by mouth once daily. No current facility-administered medications for this visit. Review of Systems Objective BP 136/78 Pulse 78 Temp 36.4 C (97.5 F) Resp 16 Wt 99.1 kg (218 lb 7.6 oz) LMP 09/04/2001 SpO2 96% BMI 43.39 kg/m Last 5 Encounter Wt Readings: Date: Wt: 10/18/2023 99.1 kg (218 lb 7.6 oz) 02/21/2023 97.5 kg (215 lb) 02/01/2023 97.1 kg (214 lb) 07/13/2022 97.1 kg (214 lb) 06/21/2022 98 kg (216 lb) No waist measurement recorded Estimated body mass index is 43.39 kg/m as calculated from the following: Height as of 08/12/20: 151.1 cm (4' 11.5). Weight as of this encounter: 99.1 kg (218 lb 7.6 oz). Last 5 Encounter BP Readings: Date: BP: 10/18/2023 136/78 02/21/2023 122/68 02/01/2023 137/78 07/13/2022 136/80 06/21/2022 126/72 Physical Exam Constitutional: Appearance: Normal appearance. HENT: Head: Normocephalic. Eyes: Conjunctiva/sclera: Conjunctivae normal. Cardiovascular: Rate and Rhythm: Normal rate and regular rhythm. Heart sounds: Normal heart sounds. Pulmonary: Effort: Pulmonary effort is normal. Breath sounds: Normal breath sounds. Musculoskeletal: Right lower le+ Pitting Edema present. Left lower le+ Pitting Edema present. Skin: General: Skin is warm and dry. Neurological: General: No focal deficit present. Mental Status: She is alert and oriented to person, place, and time. Psychiatric: Mood and Affect: Mood normal. Behavior: Behavior normal. Thought Content: Thought content normal. Judgment: Judgment normal. Latest Ref Rng 02/10/2023 06/08/2023 10/10/2023 Protein, Total 6.3 - 8.0 g/dL 6.9 6.6 6.7 Albumin 3.9 - 4.9 g/dL 4.2 4.4 4.2 Calcium 8.5 - 10.2 mg/dL 10.1 10.7 (H) 10.3 (H) Bilirubin, Total 0.2 - 1.3 mg/dL 0.4 0.4 0.5 Alkaline Phosphatase 34 - 123 U/L 107 110 102 AST 13 - 35 U/L 19 22 29 ALT 7 - 38 U/L 18 30 34 Glucose 74 - 99 mg/dL 136 (H) 140 (H) 145 (H) BUN 7 - 21 mg/dL 16 22 (H) 17 Creatinine 0.58 - 0.96 mg/dL 0.96 1.31 (H) 0.94 Sodium 136 - 144 mmol/L 140 139 138 Potassium 3.7 - 5.1 mmol/L 3.0 (L) 4.2 4.1 Chloride 98 - 107 mmol/L 99 101 100 CO2 22 - 30 mmol/L 28 25 27 Anion Gap 8 - 15 mmol/L 13 13 11 eGFR >=60 mL/min/1.73m 60 41 (L) 61 WBC 3.70 - 11.00 k/uL 6.41 6.31 RBC 3.90 - 5.20 m/uL 4.28 4.46 Hemoglobin 11.5 - 15.5 g/dL 12.9 13.3 Hematocrit 36.0 - 46.0 % 39.1 41.2 MCV 80.0 - 100.0 fL 91.4 92.4 MCH 26.0 - 34.0 pg 30.1 29.8 MCHC 30.5 - 36.0 g/dL 33.0 32.3 RDW-CV 11.5 - 15.0 % 13.5 13.9 Platelet Count 150 - 400 k/uL 236 224 MPV 9.0 - 12.7 fL 11.4 11.4 Absolute nRBC <0.01 k/uL <0.01 <0.01 Cholesterol, Total <200 mg/dL 269 (H) Triglyceride <150 mg/dL 287 (H) HDL Cholesterol >39 mg/dL 37 (L) Non HDL Cholesterol <130 mg/dL 232 (H) Fasting Time hrs 12 VLDL Cholesterol <30 mg/dL 57 (H) TC:HDL Ratio <5.10 7.27 (H) LDL Cholesterol <100 mg/dL 175 (H) LDL:HDL Ratio <2.54 4.73 (H) Hemoglobin A1C 4.3 - 5.6 % 6.1 (H) 6.9 (H) 6.6 (H) Estimated Average Glucose mg/dL 128 151 143 Vitamin D 25 Hydroxy 31.0 - 80.0 ng/mL 41.3 60.7 62.6 PTH, Intact 15 - 65 pg/mL 94 (H) 91 (H) 86 (H) TSH 0.270 - 4.200 mIU/L 1.350 3.030 Free T4 0.9 - 1.7 ng/dL 1.4 1.2 Free T3 2.3 - 4.1 pg/mL 2.1 (L) Legend: (H) High (L) Low Assessment and Plan Acquired hypothyroidism: - TSH increased from 1.35 to 3.03, indicating potential need for dose adjustment. - Patient will take an additional half pill of levothyroxine 137 mcg on Sundays to improve thyroid function. - Recheck thyroid function tests in 6 weeks to assess the effectiveness of the dose adjustment. Controlled type 2 diabetes mellitus without complication, without long-term current use of insulin (HCC): - A1c improved from 6.9 to 6.6, indicating good control of diabetes. - Encouraged continuation of healthy dietary choices and reduction of sugary drinks to maintain glycemic control. - Monitor A1c and glucose levels at the next scheduled lab appointment. Hypercalcemia: - Calcium levels decreased from 10.7 to 10.3, approaching normal range. - Monitor calcium and vitamin D levels at the next scheduled lab appointment to ensure levels remain within normal limits. Acquired hypothyroidism: - TSH increased from 1.35 to 3.03, indicating potential need for dose adjustment. - Patient will take an additional half pill of levothyroxine 137 mcg on Sundays to improve thyroid function. - Recheck thyroid function tests in 6 weeks to assess the effectiveness of the dose adjustment. Asymptomatic postmenopausal status: - No active issues reported. Osteopenia of spine: - Last bone density scan in 2014 showed osteopenia. - Order a follow-up bone density scan to assess for any progression. Vitamin D deficiency: - Vitamin D levels are currently within normal range. - Continue monitoring vitamin D levels at the next scheduled lab appointment to ensure they remain within normal limits. S/P subtotal parathyroidectomy: - Patient has a history of subtotal parathyroidectomy. - Monitor calcium and vitamin D levels at the next scheduled lab appointment to ensure levels remain within normal limits. - Noted calcium level improved but still high and iPTH still high. Mixed hyperlipidemia: - Patient is taking rosuvastatin and Zetia for lipid control. - Monitor cholesterol levels at the next scheduled lab appointment to assess the effectiveness of the current lipid-lowering therapy. Class 3 severe obesity due to excess calories with body mass index (BMI) of 40.0 to 44.9 in adult, unspecified whether serious comorbidity present (HCC): - Encouraged continuation of healthy dietary choices and reduction of sugary drinks to aid in weight management. - Discussed the importance of regular physical activity and provided suggestions for incorporating more movement into daily routine. OPHELIA on CPAP: - Patient is currently using CPAP therapy for OPHELIA management. - No changes to CPAP therapy at this time. - Encouraged adherence to CPAP use to maintain effective management of OPHELIA. Encounter Diagnosis ICD-10-CM 1. Controlled type 2 diabetes mellitus without complication, without long-term current use of insulin (HCC) E11.9 HEMOGLOBIN A1C LIPID PANEL BASIC COMPREHENSIVE METABOLIC PANEL ALBUMIN/CREATININE RATIO, URINE 2. Hypercalcemia E83.52 Improved on recheck but iPTH still high.Monitor for need to treat hyperparathyroidism again 3. Acquired hypothyroidism E03.9 levothyroxine (SYNTHROID) 137 mcg tablet TSH fine. Clinically euthyroid 4. OPHELIA on CPAP G47.33 Uses CPAP routinely and benefits from use 5. Osteopenia of spine M85.88 COMPREHENSIVE METABOLIC PANEL VITAMIN D 25 HYDROXY DXA-AXIAL SKELETON BD DXA TRABECULAR BONE SCORE (TBS) Continue to monitor and treat as indicated 6. Vitamin D deficiency E55.9 DXA-AXIAL SKELETON BD DXA TRABECULAR BONE SCORE (TBS) Adequately replaced. No changes 7. S/P subtotal parathyroidectomy Z98.890 VITAMIN D 25 HYDROXY Z90.89 DXA-AXIAL SKELETON BD DXA TRABECULAR BONE SCORE (TBS) Calcium level and iPTH have been high. Monitor levels and refer back to surgeon as indicated 8. Mixed hyperlipidemia E78.2 9. Class 3 severe obesity due to excess calories with body mass index (BMI) of 40.0 to 44.9 in adult, unspecified whether serious comorbidity present (HCC) E66.01 Z68.41 Weight back up again. Continue efforts at healthier diet and staying active. 10. Asymptomatic postmenopausal status Z78.0 DXA-AXIAL SKELETON BD DXA TRABECULAR BONE SCORE (TBS) Above issues addressed with patient. Patient involved in shared decision making for management of medical issues. History and medications reviewed. Epic updated as needed Refills and/or prescriptions taken care of and meds adjusted as indicated after reviewed history, exam and labs. Health Maintenance reviewed. Updated record and/or ordered tests as recorded. Encouraged on efforts at healthy diet and regular exercise and adequate sleep. Pam Mcgill MD documented [facility] Note* Letter - Coordinator, Mammography - 07/05/2023 4:01 PM EDT July 06, 2023 PID: [id number] Jarred Fair [address] [id number] Dear Ms. Fair, Your recent breast imaging examination performed on 07/05/2023 showed an area that we believe is probably benign (not cancer). A six month follow-up is recommended to ensure your breast health. Pleasecall [phone] to make an appointment for these tests if you have not already done so. You must have an order/prescription from your physician when calling to schedule your appointment. If your order/prescription is not electronic, you must bring the hard copy with you on the day of your exam to avoid delays. Your mammogram demonstrates that you have dense breast tissue, which could hide abnormalities. Dense breast tissue, in and of itself, is a relatively common condition. Therefore, this information is not provided to cause undue concern; rather, it is to raise your awareness and promote discussion with your health care provider regarding the presence of dense breast tissue in addition to other riskfactors. Early detection of cancer is very important. We also understand recommendations regarding breast cancer screening are controversial. Please discuss with your primary care provider which strategy is best for you and whether a mammogram is right for you. Your imaging studies and report will be kept on file at [facility] as part of your permanent medical record and are available for your continuing care. Thank you for allowing us to help in meeting your health care needs. Sincerely, Dr. Burnett Interpreting Radiologist [facility] (# mo Follow-up) [facility]04-30-[facility]24 Miscellaneous Notes* Letter - Coordinator, Mammography - 07/05/2023 4:01 PM EDT July 06, 2023 PID: [id number] Jarred Fair [address] [facility] [address] [place] [address] Dear Ms. Fair, Your recent breast imaging examination performed on 07/05/2023 showed an area that we believe is probably benign (not cancer). A six month follow-up is recommended to ensure your breast health. Pleasecall [phone] to make an appointment for these tests if you have not already done so. You must have an order/prescription from your physician when calling to schedule your appointment. If your order/prescription is not electronic, you must bring the hard copy with you on the day of your exam to avoid delays. Your mammogram demonstrates that you have dense breast tissue, which could hide abnormalities. Dense breast tissue, in and of itself, is a relatively common condition. Therefore, this information is not provided to cause undue concern; rather, it is to raise your awareness and promote discussion with your health care provider regarding the presence of dense breast tissue in addition to other riskfactors. Early detection of cancer is very important. We also understand recommendations regarding breast cancer screening are controversial. Please discuss with your primary care provider which strategy is best for you and whether a mammogram is right for you. Your imaging studies and report will be kept on file at [facility] as part of your permanent medical record and are available for your continuing care. Thank you for allowing us to help in meeting your health care needs. Sincerely, Dr. Burnett Interpreting Radiologist [facility] (# mo Follow-up) documented in this encounterSelect [facility] [place]04-30-2024 History of Present illness Narrative* Sotero Doshi, Mammo Tech - 07/05/2023 3:30 PM EDT Radiology Service Progress Note PATIENT NAME: Jarred Fair DATE OF SERVICE: July 05, 2023 TIME: 4:05 PM PATIENT IDENTITY VERIFICATION COMPLETED USING TWO (2) IDENTIFIERS: Name and Date of confirmedby patient verbally. FALL SCREENING: Has the patient had 2 falls in the last year or 1 fall with injury or currently using an Ambulatory Assistive Device (Walker, Cane, Wheelchair, Crutches, etc.)? No PATIENT GENDER DATA: Female. status: : No status: NO. PATIENT RELEVANT IMPLANT DATA REVIEWED: Not Applicable PATIENT PRESENTS WITH AN IMPLANTABLE OR ATTACHED SENIOR APPLICATION PROGRAMMER: No RADIOLOGY DEPARTMENT: Mammography PERIPHERAL IV DATA: Not applicable SIGNED BY: Maryellen Fuentes July 05, 2023 4:05 PM documented in this encounterSelect [facility] [place]04-05-2024 History of Present illness Narrative* Pam Mcgill MD - 06/10/2023 10:07 AM EDT This note was created using [employer]. Subjective Jarred Fair is a 82 year old female. Patient presents with: Follow Up: 4 month follow up SUBJECTIVE: Jarred Fair is a 82 year old year old lady here today for 4 month follow up appointment for review of medical conditions. Did not know could have water prior to labs. Has been doing fine on current meds. Clinically euthyroid. Continue to follow with [facility] See assessment and plan for other issues addressed. PAST MEDICAL HISTORY Diagnosis Date Allergic rhinitis, cause unspecified Allergic rhinitis Benign neoplasm of colon Disorder of bone and cartilage, unspecified Dysmetabolic syndrome X 06/28/2006 Started on Januvia by Dr. Toure for DM prevention since did not tolerate metformin Nonrheumatic aortic insufficiency with aortic stenosis Dr. Olguin (patient support assistant). S/P [facility] 12/2016 Obesity, unspecified Other diseases of pharynx, not elsewhere classified(478.29) Personal history of colonic polyps Pure hyperglyceridemia Snoring Unspecified asthma(493.90) Unspecified cardiovascular disease AI and some CAD on cath ([facility] follows) Unspecified essential hypertension Unspecified hypothyroidism Current Outpatient Medications Medication Sig ezetimibe (ZETIA) 10 mg tablet Take 10 mg by mouth once daily. levothyroxine (SYNTHROID) 137 mcg tablet Take 1 tablet by mouth daily before breakfast. montelukast (SINGULAIR) 10 mg tablet Take 1 tablet by mouth once daily. As directed fluticasone (FLONASE) 50 mcg/actuation nasal spray Use 2 Sprays in each nostril once daily as needed for cold/allergy symptoms. Rinse mouth after use. CPAP Continue CPAP at 9cm H2O with humidification. Refills for Mask (per patient preference) optional chin strap (if indicated) , filters, tubing, humidifier and lifetime supplies. 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 albuterol HFA (VENTOLIN HFA) 90 mcg/actuation inhaler Inhale 2 Puffs as instructed every 4 hours asneeded. clobetasol (TEMOVATE) 0.05 % ointment Clobetasol Propionate 0.05 % sham Zinc 50 mg tab Take 1 tablet by mouth once daily. amLODIPine (NORVASC) 10 mg tablet Take 1 tablet by mouth once daily. (Dr. Olguin) glucosamine HCl/chondroitin mccarthy (GLUCOSAMINE-CHONDROITIN ORAL) Take by mouth once daily. ubidecarenone (CO Q-10 ORAL) Take by mouth once daily. lisinopril (ZESTRIL, PRINIVIL) 40 mg tablet Take 1 tablet by mouth once daily. carvedilol (COREG) 6.25 mg tablet Take 1 tablet by mouth twice daily. Multivitamin capsule Take 1 capsule by mouth once daily. furosemide (LASIX) 40 mg tablet Take 40 mg by mouth once daily. vitamin e 1,000 unit capsule Take 1,000 Units by mouth once daily. BIOTIN ORAL Take by mouth. VITAMIN A PALMITATE ORAL Take by mouth. Cetirizine 10 mg cap Take by mouth. Cholecalciferol, Vitamin D3, 1,000 unit cap Take 1 capsule by mouth once daily. aspirin, enteric coated (ASPIRIN, ENTERIC COATED) 81 mg EC tablet Take 1 tablet by mouth once daily. COMPOUNDED PRESCRIPTION CPAP head gear Diagnosis :OPHELIA 327.23 OMEGA-3 FATTY ACIDS-FISH OIL 300 MG-1,000 MG CAP Take one(1) tablet daily. diphenhydramine hcl(BENADRYL 25 MG CAP) Take one(1) tablet daily at bedtime as necessary (uses 5-6 x's a week) rosuvastatin (CRESTOR) 5 mg tablet Take 1 tablet by mouth one time a week. No current facility-administered medications for this visit. Review of Systems Objective BP (P) 118/70 (BP Site: Left Arm, BP Position: Sitting, BP Cuff Size: Large Adult) Pulse (P) 72 Wt (P) 98 kg (216 lb) LMP 09/04/2001 BMI (P) 42.90 kg/m Physical Exam Constitutional: Appearance: Normal appearance. HENT: Head: Normocephalic. Eyes: Conjunctiva/sclera: Conjunctivae normal. Cardiovascular: Rate and Rhythm: Normal rate and regular rhythm. Heart sounds: Normal heart sounds. Pulmonary: Effort: Pulmonary effort is normal. Breath sounds: Normal breath sounds. Musculoskeletal: Right lower leg: Edema (trace pretibial) present. Left lower leg: Edema (trace pretibial) present. Skin: General: Skin is warm and dry. Neurological: General: No focal deficit present. Mental Status: She is alert and oriented to person, place, and time. Psychiatric: Mood and Affect: Mood normal. Behavior: Behavior normal. Thought Content: Thought content normal. Judgment: Judgment normal. Latest Ref Rng 10/18/2022 02/10/2023 06/08/2023 WBC 3.70 - 11.00 k/uL 6.13 6.41 6.31 RBC 3.90 - 5.20 m/uL 4.46 4.28 4.46 Hemoglobin 11.5 - 15.5 g/dL 12.9 12.9 13.3 Hematocrit 36.0 - 46.0 % 40.1 39.1 41.2 MCV 80.0 - 100.0 fL 89.9 91.4 92.4 MCH 26.0 - 34.0 pg 28.9 30.1 29.8 MCHC 30.5 - 36.0 g/dL 32.2 33.0 32.3 RDW-CV 11.5 - 15.0 % 14.6 13.5 13.9 Platelet Count 150 - 400 k/uL 208 236 224 MPV 9.0 - 12.7 fL 11.4 11.4 11.4 Neut% % 57.8 Abs Neut (ANC) 1.45 - 7.50 k/uL 3.54 Lymph% % 29.2 Abs Lymph 1.00 - 4.00 k/uL 1.79 Rankin% % 10.6 Abs Rankin <0.87 k/uL 0.65 Eosin% % 1.8 Abs Eosin <0.46 k/uL 0.11 Baso% % 0.3 Abs Baso <0.11 k/uL <0.03 Immature Gran % % 0.3 IMMATURE GRANS (ABS) <0.10 k/uL <0.03 NRBC /100 WBC 0.0 Absolute nRBC <0.01 k/uL <0.01 <0.01 <0.01 DTYPE Auto Protein, Total 6.3 - 8.0 g/dL 7.2 6.9 6.6 Albumin 3.9 - 4.9 g/dL 4.3 4.2 4.4 Calcium 8.5 - 10.2 mg/dL 10.7 (H) 10.1 10.7 (H) Bilirubin, Total 0.2 - 1.3 mg/dL 0.4 0.4 0.4 Alkaline Phosphatase 34 - 123 U/L 111 107 110 AST 13 - 35 U/L 20 19 22 ALT 7 - 38 U/L 28 18 30 Glucose 74 - 99 mg/dL 123 (H) 136 (H) 140 (H) BUN 7 - 21 mg/dL 21 16 22 (H) Creatinine 0.58 - 0.96 mg/dL 1.09 (H) 0.96 1.31 (H) Sodium 136 - 144 mmol/L 138 140 139 Potassium 3.7 - 5.1 mmol/L 3.7 3.0 (L) 4.2 Chloride 97 - 105 mmol/L 101 99 101 CO2 22 - 30 mmol/L 26 28 25 Anion Gap 9 - 18 mmol/L 11 13 13 eGFR >=60 mL/min/1.73m 51 (L) 60 41 (L) Cholesterol, Total <200 mg/dL 215 (H) 269 (H) Triglyceride <150 mg/dL 290 (H) 287 (H) HDL Cholesterol >39 mg/dL 39 (L) 37 (L) Non HDL Cholesterol <130 mg/dL 176 (H) 232 (H) Fasting Time hrs 12 12 VLDL Cholesterol <30 mg/dL 58 (H) 57 (H) TC:HDL Ratio <5.10 5.51 (H) 7.27 (H) LDL Cholesterol <100 mg/dL 118 (H) 175 (H) LDL:HDL Ratio <2.54 3.03 (H) 4.73 (H) Hemoglobin A1C 4.3 - 5.6 % 6.6 (H) 6.1 (H) 6.9 (H) Estimated Average Glucose mg/dL 143 128 151 TSH 0.270 - 4.200 mIU/L 0.430 1.350 Vitamin D 25 Hydroxy 31.0 - 80.0 ng/mL 42.7 41.3 60.7 PTH, Intact 15 - 65 pg/mL 94 (H) 91 (H) Free T4 0.9 - 1.7 ng/dL 1.4 Legend: (H) High (L) Low Last set of lipids revealed: Total Chol 243: HDL 43: LDL 146: TG 272: Assessment and Plan Encounter Diagnosis ICD-10-CM 1. Acquired hypothyroidism E03.9 TSH BLD T4 FREE/FREE THYROX T3 FREE BLD Clinically euthyroid; Follow labs 2. Controlled type 2 diabetes mellitus without complication, without long-term current use of insulin ([facility]) E11.9 HGB A1C COMP METABOLIC PANEL Just met criteria 3. Hypercalcemia E83.52 VITAMIN D 25 HYDROXY PTH INTACT BLD Calcium up again. iPTH is high. Monitor for now.Only adequate calcium and Vitamin D intake.Treat for hyperparathyroidism again as needed. 4. Vitamin D deficiency E55.9 VITAMIN D 25 HYDROXY Well replaced 5. S/P subtotal parathyroidectomy Z98.890 VITAMIN D 25 HYDROXY Z90.89 PTH INTACT BLD 6. Primary hypertension I10 Well controlled. [facility] 7. Mixed hyperlipidemia E78.2 Just started Crestor 5mg once weekly; labs in 3 months per cardiology 8. Chronic fatigue R53.82 9. OPHELIA on CPAP G47.33 Uses nightly and benefits from use. Wll check to make sure working well. Adjust as needed 10. Class 3 severe obesity due to excess calories with body mass index (BMI) of 40.0 to 44.9 in adult, unspecified whether serious comorbidity present ([facility]) E66.01 Z68.41 Keep working on healthier diet and staying as active as able to help with gradual weight loss Above issues addressed with patient. Patient involved in shared decision making for management of medical issues. History and medications reviewed. Epic updated as needed Refills and/or prescriptions taken care of and meds adjusted as indicated after reviewed history, exam and labs. Health Maintenance reviewed. Updated record and/or ordered tests as recorded. Encouraged on efforts at healthy diet and regular exercise and adequate sleep. Pam Mcgill MD documented in this encounterSelect [facility] [place]11-05-2023 History of Past illness Narrative* Problem Noted Date Diagnosed Date Resolved Date Hypertensive kidney disease with stage 3a chronic kidney disease 07/15/2021 06/21/2022 Stage 3a chronic kidney disease 01/16/2021 06/21/2022 Overview: Stable; labs ordered for follow up CAP (community acquired pneumonia) 10/30/2009 05/20/2015 Overview: 10/18/09 - 10/20/09 [facility] admission- levaquin tx. RLL pneumonia. Continued tx with levaquin until 11/06/09-improved Pain in joint, lower leg 10/22/2008 Atypical mole 10/22/2008 11/22/2008 Pure hyperglyceridemia 10/09 documented as of this encounter (statuses as of 01/09/2023) [facility]10[facility] History of Present illness Narrative* Ania Gutierrez RT(R) - 01/04/2023 3:30 PM EDT Radiology Service Progress Note PATIENT NAME: Jarred Fair DATE OF SERVICE: January 04, 2023 TIME: 3:24 PM PATIENT IDENTITY VERIFICATION COMPLETED USING TWO (2) IDENTIFIERS: Name and Date of confirmedby patient verbally. FALL SCREENING: Has the patient had 2 falls in the last year or 1 fall with injury or currently using an Ambulatory Assistive Device (Walker, Cane, Wheelchair, Crutches, etc.)? No PATIENT GENDER DATA: Female. status: : No status: NO. PATIENT RELEVANT IMPLANT DATA REVIEWED: Not Applicable RADIOLOGY DEPARTMENT: Mammography PERIPHERAL IV DATA: Not applicable SIGNED BY: RT Daniel(R) January 04, 2023 3:24 PM documented in this encounter[facility] Miscellaneous Notes* Result Encounter Note - Haily Alvarez APRN.CNS - 01/04/2023 3:30 PM EDT Calcifications in the right breast are probably benign and 6-month follow-up is recommended to demonstrate stability. documented in this encounter[facility] Miscellaneous Notes* Telephone Encounter - Pam Mcgill MD - 01/02/2023 8:31 PM EDT Orders filed by Haily and appointment scheduled documented in this encounterSelect [facility] History of Past illness Narrative* Problem Noted Date Diagnosed Date Resolved Date Hypertensive kidney disease with stage 3a chronic kidney disease 07/15/2021 06/21/2022 Stage 3a chronic kidney disease 01/16/2021 06/21/2022 Overview: Stable; labs ordered for follow up CAP (community acquired pneumonia) 10/30/2009 05/20/2015 Overview: 10/18/09 - 10/20/09 [facility] admission- levaquin tx. RLL pneumonia. Continued tx with levaquin until 11/06/09-improved Pain in joint, lower leg 10/22/2008 Atypical mole 10/22/2008 11/22/2008 Pure hyperglyceridemia 10/09 documented as of this encounter (statuses as of 01/03/2023) [facility] Miscellaneous Notes* Telephone Encounter - Haily Alvarez APRN.CNS - 12/24/2022 3:52 PM EDT Order placed, needs scheduled. documented in this encounterSelect [facility] History of Past illness Narrative* Problem Noted Date Diagnosed Date Resolved Date Hypertensive kidney disease with stage 3a chronic kidney disease 07/15/2021 06/21/2022 Stage 3a chronic kidney disease 01/16/2021 06/21/2022 Overview: Stable; labs ordered for follow up CAP (community acquired pneumonia) 10/30/2009 05/20/2015 Overview: 10/18/09 - 10/20/09 [facility] admission- levaquin tx. RLL pneumonia. Continued tx with levaquin until 11/06/09-improved Pain in joint, lower leg 10/22/2008 Atypical mole 10/22/2008 11/22/2008 Pure hyperglyceridemia 10/09 documented as of this encounter (statuses as of 12/24/2022) [facility] History of Past illness Narrative* Problem Noted Date Diagnosed Date Resolved Date Hypertensive kidney disease with stage 3a chronic kidney disease 07/15/2021 06/21/2022 Stage 3a chronic kidney disease 01/16/2021 06/21/2022 Overview: Stable; labs ordered for follow up CAP (community acquired pneumonia) 10/30/2009 05/20/2015 Overview: 10/18/09 - 10/20/09 [facility] admission- levaquin tx. RLL pneumonia. Continued tx with levaquin until 11/06/09-improved Pain in joint, lower leg 10/22/2008 Atypical mole 10/22/2008 11/22/2008 Pure hyperglyceridemia 10/09 documented as of this encounter (statuses as of 11/26/2022) [facility] Miscellaneous Notes* Letter - Coordinator, Mammography - 11/24/2022 12:52 PM EDT November 24, 2022 PID: [id number] Jarred Fair [address] [place], [place] [id number] Dear Ms. Fair, Your recent breast imaging exam on 11/24/2022 showed a possible finding that requires additional imaging studies for a complete evaluation. Most such findings are probably benign (not cancer). Your mammogram demonstrates that you have dense breast tissue, which could hide abnormalities. Dense breast tissue, in and of itself, is a relatively common condition. Therefore, this information is not provided to cause undue concern; rather, it is to raise your awareness and promote discussion with your health care provider regarding the presence of dense breast tissue in addition to other riskfactors. If you have a healthcare provider who ordered/prescribed your screening mammogram: Please call [phone] or [phone]: [phone] to schedule an appointment for your additional imaging (if youhave not already done so). If you DO NOT have a healthcare provider (ie you did not have an order/prescription for your screening mammogram): Please call to schedule an appointment for your additional imaging (if you have not already done so). You must have an order/prescription from your physician when calling to schedule your appointment. If your order/prescription is not electronic, you must bring the hard copy with you on the day of your exam to avoid delays. Your imaging studies and reports are kept on file at [facility] as part of your permanent medical record, and are available for your continuing care. Thank you for allowing us to help in meeting your health care needs. Sincerely, Dr. James Interpreting Radiologist [facility] (Additional imaging) documented in this encounterSelect [facility] History of Present illness Narrative* Ania Gutierrez, RT(R) - 11/24/2022 10:30 AM EDT Radiology Service Progress Note PATIENT NAME: Jarred Fair DATE OF SERVICE: November 24, 2022 TIME: 10:11 AM PATIENT IDENTITY VERIFICATION COMPLETED USING TWO (2) IDENTIFIERS: Name and Date of confirmedby patient verbally. FALL SCREENING: Has the patient had 2 falls in the last year or 1 fall with injury or currently using an Ambulatory Assistive Device (Walker, Cane, Wheelchair, Crutches, etc.)? No PATIENT GENDER DATA: Female. status: : No status: NO. PATIENT RELEVANT IMPLANT DATA REVIEWED: Not Applicable RADIOLOGY DEPARTMENT: Mammography PERIPHERAL IV DATA: Not applicable SIGNED BY: RT Daniel(R) November 24, 2022 10:11 AM documented in this encounterSelect [facility] History of Past illness Narrative* Problem Noted Date Diagnosed Date Resolved Date Hypertensive kidney disease with stage 3a chronic kidney disease 07/15/2021 06/21/2022 Stage 3a chronic kidney disease 01/16/2021 06/21/2022 Overview: Stable; labs ordered for follow up CAP (community acquired pneumonia) 10/30/2009 05/20/2015 Overview: 10/18/09 - 10/20/09 [facility] admission- levaquin tx. RLL pneumonia. Continued tx with levaquin until 11/06/09-improved Pain in joint, lower leg 10/22/2008 Atypical mole 10/22/2008 11/22/2008 Pure hyperglyceridemia 10/09 documented as of this encounter (statuses as of 10/27/2022) [facility] History of Present illness Narrative* Indiana Nuñez APRN.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 - 07/13/2022 11:37 AM EDT Subjective Nasal Congestion Associated symptoms include congestion and coughing. Pertinent negatives include no chills, ear pain, headaches, shortness of breath or sore throat. Jarred Fair is a 81 year old female who presents with 2.5 weeks of sinus congestion and drainage, sinus tenderness, and cough. She has been taking Mucinex and Robitussin and Afrin and saline spray. She has not had a fever. Review of Systems Constitutional: Negative for chills and fever. HENT: Positive for congestion and sinus pain. Negative for ear pain and sore throat. Respiratory: Positive for cough. Negative for shortness of breath and wheezing. Cardiovascular: Negative. Musculoskeletal: Negative for myalgias. Neurological: Negative for headaches. BP 136/80 Pulse 84 Temp 36.1 C (96.9 F) (Tympanic) Resp 18 Wt 97.1 kg (214 lb) LMP 09/04/2001 SpO2 97% BMI 42.50 kg/m PAST MEDICAL HISTORY Diagnosis Date Allergic rhinitis, cause unspecified Allergic rhinitis Benign neoplasm of colon Disorder of bone and cartilage, unspecified Dysmetabolic syndrome X 06/28/2006 Started on Januvia by Dr. Toure for DM prevention since did not tolerate metformin Nonrheumatic aortic insufficiency with aortic stenosis Dr. Olguin (patient support assistant). [facility]2016 Obesity, unspecified Other diseases of pharynx, not elsewhere classified(478.29) Personal history of colonic polyps Pure hyperglyceridemia Snoring Unspecified asthma(493.90) Unspecified cardiovascular disease AI and some CAD on cath ([place] follows) Unspecified essential hypertension Unspecified hypothyroidism PAST SURGICAL HISTORY Procedure Laterality Date CHOLECYSTECTOMY Cholecystectomy COLONOSCOPY FLX DX W/COLLJ SPEC WHEN PFRMD 05/13/2000 Colonoscopy COLONOSCOPY FLX DX W/COLLJ SPEC WHEN PFRMD 06/15/2006 Colonoscopy- TA polyp COLONOSCOPY FLX DX W/COLLJ SPEC WHEN PFRMD 05/22/2015 Colonoscopy COLSC FLX W/RMVL OF TUMOR POLYP LESION SNARE TQ 03/27/2010 COLSC FLX W/RMVL OF TUMOR POLYP LESION SNARE TQ 05/28/2020 DILATION & CURETTAGE DX&/THER NONOBSTETRIC Dilation & curettage EYE EXAM & TREATMENT 01/07/2012 No diabetic retinopathy detected LIG/TRNSXJ FLP TUBE ABDL/VAG APPR UNI/BI Tubal ligation PAST SURGICAL HISTORY OF 02/20/2002 parathyroid resection (Dr. 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 Ferguson took 3 skin biopsies PAST SURGICAL HISTORY OF 12/22/2016 TAVR STRESS TEST 01/12/2016 ALLERGIES Fragrances, Simvastatin, Environmental [Other], Jelly Beans, and Nifedipine MEDICATIONS APPLE CIDER VINEGAR ORAL Take by mouth. levothyroxine (SYNTHROID) 137 mcg tablet Take 1 tablet by mouth daily before breakfast. montelukast (SINGULAIR) 10 mg tablet Take 1 tablet by mouth once daily. As directed albuterol HFA (VENTOLIN HFA) 90 mcg/actuation inhaler Inhale 2 Puffs as instructed every 4 hours asneeded. clobetasol (TEMOVATE) 0.05 % ointment Clobetasol Propionate 0.05 % sham CPAP Needs replacement CPAP at 9cm H2O with humidification. Refills for Mask (per patient preference) optional chin strap (if indicated) , filters, tubing, humidifier and lifetime supplies. G47.33 Zinc 50 mg tab Take 1 tablet by mouth once daily. amLODIPine (NORVASC) 10 mg tablet Take 1 tablet by mouth once daily. (Dr. Olguin) rosuvastatin (CRESTOR) 5 mg tablet Take 1 tablet by mouth every Tuesday,Tuesday,Tuesday. glucosamine HCl/chondroitin mccarthy (GLUCOSAMINE-CHONDROITIN ORAL) Take by mouth once daily. ubidecarenone (CO Q-10 ORAL) Take by mouth once daily. lisinopril (ZESTRIL, PRINIVIL) 40 mg tablet Take 1 tablet by mouth once daily. carvedilol (COREG) 6.25 mg tablet Take 1 tablet by mouth twice daily. Multivitamin capsule Take 1 capsule by mouth once daily. furosemide (LASIX) 40 mg tablet Take 40 mg by mouth once daily. vitamin e 1,000 unit capsule Take 1,000 Units by mouth once daily. BIOTIN ORAL Take by mouth. VITAMIN A PALMITATE ORAL Take by mouth. Cetirizine 10 mg cap Take by mouth. Cholecalciferol, Vitamin D3, 1,000 unit cap Take 1 capsule by mouth once daily. aspirin, enteric coated (ASPIRIN, ENTERIC COATED) 81 mg EC tablet Take 1 tablet by mouth once daily. COMPOUNDED PRESCRIPTION CPAP head gear Diagnosis :OPHELIA 327.23 OMEGA-3 FATTY ACIDS-FISH OIL 300 MG-1,000 MG CAP Take one(1) tablet daily. diphenhydramine hcl(BENADRYL 25 MG CAP) Take one(1) tablet daily at bedtime as necessary (uses 5-6 x's a week) amoxicillin-clavulanic acid (AUGMENTIN) 875-125 mg per tablet Take 1 tablet by mouth twice daily for 7 days. FAMILY HISTORY Problem Relation Age of Onset Heart Mother Hypertension Mother Colon Cancer Father Heart Brother x2 Hypertension Brother Diabetes Brother Social History Tobacco Use Smoking status: Never Smokeless tobacco: Never Substance Use Topics Alcohol use: No Drug use: No Objective Physical Exam Vitals and nursing note reviewed. Constitutional: General: She is not in acute distress. Appearance: Normal appearance. She is not ill-appearing. HENT: Right Ear: Tympanic membrane, ear canal and external ear normal. Left Ear: Tympanic membrane, ear canal and external ear normal. Nose: Nasal tenderness, mucosal edema, congestion and rhinorrhea present. Mouth/Throat: Mouth: Mucous membranes are moist. Pharynx: Oropharynx is clear. Uvula midline. No oropharyngeal exudate or posterior oropharyngeal erythema. Cardiovascular: Rate and Rhythm: Normal rate and regular rhythm. Heart sounds: Normal heart sounds. Pulmonary: Effort: Pulmonary effort is normal. No respiratory distress. Breath sounds: Normal breath sounds. No wheezing or rales. Musculoskeletal: Cervical back: Neck supple. Lymphadenopathy: Cervical: No cervical adenopathy. Skin: General: Skin is warm and dry. Findings: No erythema or rash. Neurological: Mental Status: She is alert. ASSESSMENT/PLAN: 1. Acute sinusitis, recurrence not specified, unspecified location - ICD9: 461.9, ICD10: J01.90 - Will begin treatment with as per antibiotic as written, see orders - Supportive care with plenty of fluids, rest, and analgesia prn. - you may continue to take Mucinex. Don't use Afrin as this can cause rebound congestion. You may use Flonase nasal spray. - AMOXICILLIN 875 MG-POTASSIUM CLAVULANATE 125 MG TABLET - Follow-up with your PCP in 3-5 days if symptoms have not improved or sooner if symptoms worsen - Discussed red flags and need for immediate medical evaluation if any occur. - Discussed supportive care treatment with fluids, rest and analgesia. - Discussed expected course of illness Indiana Live APRN.STARR [facility] Instructions* Patient Instructions* Indiana Live APRN.CNP - 07/13/2022 11:33 AM EDT ASSESSMENT/PLAN: 1. Acute sinusitis, recurrence not specified, unspecified location - ICD9: 461.9, ICD10: J01.90 - Will begin treatment with as per antibiotic as written, see orders - Supportive care with plenty of fluids, rest, and analgesia prn. - you may continue to take Mucinex. Don't use Afrin as this can cause rebound congestion. You may use Flonase nasal spray. - AMOXICILLIN 875 MG-POTASSIUM CLAVULANATE 125 MG TABLET - Follow-up with your PCP in 3-5 days if symptoms have not improved or sooner if symptoms worsen - Discussed red flags and need for immediate medical evaluation if any occur. - Discussed supportive care treatment with fluids, rest and analgesia. - Discussed expected course of illness Indiana Live, MARCELINA.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 [facility] CARE PATIENT INFO ACUTE SINUSITIS OVERVIEW Rhinosinusitis, or more commonly sinusitis, is the medical term for inflammation (swelling) of the lining of the sinuses and nose. The sinuses are the hollow areas within the facial bones that are connected to the nasal openings. The sinuses are lined with mucous membranes, similar to the inside ofthe nose. There are two main types of sinusitis: acute and chronic. Acute sinusitis is inflammation that lasts for less than four weeks while chronic sinusitis lasts for more than 12 weeks. Acute sinusitis is common, affecting approximately one million people per year in the [place]. ACUTE SINUSITIS CAUSES The most common cause of acute sinusitis is a viral infection associated with the common cold. Bacterial sinusitis occurs much less commonly, in only 0.5 to 2 percent of cases, usually as a complication of viral sinusitis. Because antibiotics are effective only against bacterial, and not viral, infections, most people donot need antibiotics for acute sinusitis. ACUTE SINUSITIS SYMPTOMS Symptoms of acute sinusitis include: Nasal congestion or blockage Thick, yellow to green discharge from the nose Pain in the teeth Pain or pressure in the face that is worse when bending forwards Other acute sinusitis symptoms can include fever (temperature greater than 100.4 F or 38 C), fatigue, cough, difficulty or inability to smell, ear pressure or fullness, headache, and bad breath. In most cases, these symptoms develop over the course of one day and begin to improve within seven to 10 days. DO I NEED TO BE EXAMINED? It is difficult to know if you have a viral or bacterial sinus infection initially. However, most people with a viral infection improve without treatment within seven to 10 days after symptoms begin.Bacterial sinusitis also sometimes improves without treatment, although it can also worsen and require treatment. If one or more of the following bothersome symptoms last more than seven days, an examination by a healthcare provider is recommended: Thick, yellow to green discharge from the nose Face or tooth pain, especially if it is only on one side Tenderness over the maxillary sinuses (located on the left and right side of the nose, inside the cheekbones) Symptoms that initially improve and then worsen When to seek immediate help -- If you have one or more of the following symptoms, you should seek medical attention immediately (even if symptoms have been present for less than seven days): High fever (>102.5 F or 39.2 C) Sudden, severe pain in the face or head Double vision or difficulty seeing Confusion or difficulty thinking clearly Swelling or redness around one or both eyes Stiff neck, shortness of breath ACUTE SINUSITIS TREATMENT Initial treatment of a sinus infection aims to relieve symptoms since almost everyone will improve within the first seven to 10 days. Experts recommend avoiding antibiotics during this time unless there is clear evidence of a severe bacterial infection. Initial treatment Pain relief -- Non-prescription pain medications, such as acetaminophen (eg, Tylenol ) or ibuprofen(eg, Motrin , Advil ) are recommended for pain. Nasal irrigation and saline sprays -- Rinsing the nose with a salt-water (saline) solution is called nasal irrigation or nasal lavage. Saline is also available in a standard nasal spray, although this is not as effective as using larger amounts of water in an irrigation. Nasal irrigation is particularly useful for treating drainage down the back of the throat, sneezing, nasal dryness, and congestion. The treatment helps by rinsing out allergens and irritants from thenose. Saline rinses also clean the nasal lining and can be used before applying sprays containing medications, to get a better effect from the medication. Nasal lavage with warmed saline can be performed as needed, once per day, or twice daily for increased symptoms. Nasal lavage carries few risks when performed correctly. Saline nasal sprays and irrigation kits can be purchased [id number]. Saline mixes can also be purchased or patients can make their own solution. A variety of devices, including bulb syringes, Neti pots, and bottle sprayers, may be used to perform nasal lavage; instructions for nasal lavage are provided in the table. At least 200 mL (about 3/4cup) of fluid is recommended for each nostril. Nasal decongestants -- Nasal decongestant sprays, including oxymetazoline (Afrin ) and phenylephrine (Lawrence-synephrine ) can be used to temporarily treat congestion. However, these sprays should not beused for more than two to three days due to the risk of rebound congestion (when the nose is congested constantly unless the medication is used repeatedly). Other treatments -- Other treatments for congestion, such as oral antihistamines (such as diphenhydramine/Benadryl ) or zinc supplements are not proven to improve symptoms of sinusitis and can have unwanted side effects. Medications to thin secretions (such as guaifenesin) may help to clear mucus. Secondline treatment -- If symptoms have not improved in seven to ten days, you should arrange for medical evaluation. You may need further treatment. Nasal glucocorticoids -- Nasal glucocorticoids (steroids delivered by a nasal spray) can help to reduce swelling inside the nose, usually within two to three days. These drugs have few side effects and dramatically relieve symptoms in most people. There are a number of nasal glucocorticoids available by prescription. These drugs are all effective, but differ in how frequently they must be used and how much they cost. You may need to use a nasal decongestant for a few days before starting a nasal glucocorticoid to reduce nasal swelling; this will allow the nasal glucocorticoid to reach more areas of the nasal passages Do I need an antibiotic? -- If bothersome symptoms of sinusitis persist for 10 or more days, it is possible that you have bacterial sinusitis. The need for antibiotics depends upon the severity of your symptoms. Mild symptoms -- There are two possible treatment options if you have mild sinusitis symptoms: treat with antibiotics or continue to watch and wait for one week. Watching and waiting is a reasonable option because up to 75 percent of people with bacterial sinusitis improve within one month without antibiotics. During the watch and wait period, treatments to improve symptoms are recommended. If symptoms worsen or do not improve after watching and waiting, treatment with an antibiotic is usually recommended. Treatments to relieve symptoms are recommended while using antibiotics. Moderate or severe symptoms -- Most healthcare providers will prescribe an antibiotic for moderate to severe symptoms (temperature >38.3 C or 101 F and/or severe pain that interferes with usual activities). Treatments to relieve symptoms are also recommended during antibiotic treatment. One of the least expensive and most effective antibiotics for sinusitis is amoxicillin. An alternate antibiotic will be prescribed if you are allergic to penicillin. Regardless of which antibiotic isprescribed, it is important to follow the dosing instructions carefully and to finish the entire course of treatment. Taking the medication less often than prescribed or stopping the medication earlycan lead to complications, such as a recurrent infection. What if I do not improve with treatment? -- If you do not improve or worsen after a course of antibiotics, you should be re-examined. In some cases, symptoms of sinusitis improve but then recur. This is usually because the infection was not completely eliminated by the antibiotic. An alternate antibiotic, extended antibiotic treatment, and/or further testing may be recommended, depending upon your individual situation. documented in this encounter[facility] History of Past illness Narrative* Problem Noted Date Resolved Date Hypertensive kidney disease with stage 3a chronic kidney disease 07/15/2021 06/21/2022 Stage 3a chronic kidney disease 01/16/2021 06/21/2022 Overview: Stable; labs ordered for follow up CAP (community acquired pneumonia) 10/30/2009 05/20/2015 Overview: 10/18/09 - 10/20/09 [facility] admission- levaquin tx. RLL pneumonia. Continued tx with levaquin until 11/06/09-improved Pain in joint, lower leg 10/22/2008 010 Atypical mole 10/22/2008 11/22/2008 Pure hyperglyceridemia 0 documented as of this encounter (statuses as of 07/13/2022) [facility] History of Present illness Narrative* Pam Mcgill MD - 06/21/2022 10:03 AM EDT This note was created using iGoriter. Subjective Jarred Fair is a 81 year old female. Patient presents with: 4 months follow up SUBJECTIVE: Jarred Fair is a 81 year old year old lady here today for 4 month follow up appointment for review of medical conditions. Passed small blood clots in urine in April--about a week. No other associated symptoms. Fasting from supper to lunch. 2 meals per day. Not snacking between lunch ad upper. Started in March. Finds this an easy way to do her nutrition. Taking a 2 week break on statin. About every 6 months takes a break when muscle aches recur. Doing well on CPAP. Using routinely at least 4 hours every night and benefits from use. PAST MEDICAL HISTORY Diagnosis Date Allergic rhinitis, cause unspecified Allergic rhinitis Benign neoplasm of colon Disorder of bone and cartilage, unspecified Dysmetabolic syndrome X 06/28/2006 Started on Januvia by Dr. Toure for DM prevention since did not tolerate metformin Nonrheumatic aortic insufficiency with aortic stenosis Dr. Olguin (patient support assistant). S/P [facility] 12/2016 Obesity, unspecified Other diseases of pharynx, not elsewhere classified(478.29) Personal history of colonic polyps Pure hyperglyceridemia Snoring Unspecified asthma(493.90) Unspecified cardiovascular disease AI and some CAD on cath ([facility] follows) Unspecified essential hypertension Unspecified hypothyroidism Current Outpatient Medications Medication Sig APPLE CIDER VINEGAR ORAL Take by mouth. levothyroxine (SYNTHROID) 137 mcg tablet Take 1 tablet by mouth daily before breakfast. montelukast (SINGULAIR) 10 mg tablet Take 1 tablet by mouth once daily. As directed albuterol HFA (VENTOLIN HFA) 90 mcg/actuation inhaler Inhale 2 Puffs as instructed every 4 hours asneeded. clobetasol (TEMOVATE) 0.05 % ointment Clobetasol Propionate 0.05 % sham CPAP Needs replacement CPAP at 9cm H2O with humidification. Refills for Mask (per patient preference) optional chin strap (if indicated) , filters, tubing, humidifier and lifetime supplies. G47.33 Zinc 50 mg tab Take 1 tablet by mouth once daily. amLODIPine (NORVASC) 10 mg tablet Take 1 tablet by mouth once daily. (Dr. Olguin) rosuvastatin (CRESTOR) 5 mg tablet Take 1 tablet by mouth every Tuesday,Tuesday,Tuesday. ubidecarenone (CO Q-10 ORAL) Take by mouth once daily. lisinopril (ZESTRIL, PRINIVIL) 40 mg tablet Take 1 tablet by mouth once daily. carvedilol (COREG) 6.25 mg tablet Take 1 tablet by mouth twice daily. Multivitamin capsule Take 1 capsule by mouth once daily. furosemide (LASIX) 40 mg tablet Take 40 mg by mouth once daily. vitamin e 1,000 unit capsule Take 1,000 Units by mouth once daily. BIOTIN ORAL Take by mouth. VITAMIN A PALMITATE ORAL Take by mouth. Cetirizine 10 mg cap Take by mouth. Cholecalciferol, Vitamin D3, 1,000 unit cap Take 1 capsule by mouth once daily. aspirin, enteric coated (ASPIRIN, ENTERIC COATED) 81 mg EC tablet Take 1 tablet by mouth once daily. COMPOUNDED PRESCRIPTION CPAP head gear Diagnosis :OPHELIA 327.23 OMEGA-3 FATTY ACIDS-FISH OIL 300 MG-1,000 MG CAP Take one(1) tablet daily. diphenhydramine hcl(BENADRYL 25 MG CAP) Take one(1) tablet daily at bedtime as necessary (uses 5-6 x's a week) glucosamine HCl/chondroitin mccarthy (GLUCOSAMINE-CHONDROITIN ORAL) Take by mouth once daily. (Patient not taking: No sig reported) No current facility-administered medications for this visit. Review of Systems Objective BP 126/72 Pulse 70 Temp 36.2 C (97.2 F) Resp 18 Wt 98 kg (216 lb) LMP 09/04/2001 SpO2 99% BMI 42.90 kg/m Last 5 Encounter Wt Readings: Date: Wt: 06/21/2022 98 kg (216 lb) 03/19/2022 99.3 kg (219 lb) 11/11/2021 99.3 kg (219 lb) 07/17/2021 98.9 kg (218 lb) 03/13/2021 97.5 kg (215 lb) No waist measurement recorded Estimated body mass index is 42.9 kg/m as calculated from the following: Height as of 08/12/20: 151.1 cm (4' 11.5). Weight as of this encounter: 98 kg (216 lb). Last 5 Encounter BP Readings: Date: BP: 06/21/2022 126/72 03/19/2022 134/71 11/11/2021 128/80 07/17/2021 122/72 03/13/2021 124/68 Physical Exam Constitutional: Appearance: Normal appearance. She is obese. HENT: Head: Normocephalic. Eyes: Conjunctiva/sclera: Conjunctivae normal. Cardiovascular: Rate and Rhythm: Normal rate and regular rhythm. Heart sounds: Normal heart sounds. Comments: Trace pretibial edema Pulmonary: Effort: Pulmonary effort is normal. Breath sounds: Normal breath sounds. Musculoskeletal: Right lower leg: Edema present. Left lower leg: Edema present. Skin: General: Skin is warm and dry. Neurological: General: No focal deficit present. Mental Status: She is alert and oriented to person, place, and time. Psychiatric: Mood and Affect: Mood normal. Behavior: Behavior normal. Thought Content: Thought content normal. Judgment: Judgment normal. Component Latest Ref Rng & Units 01/26/2022 06/16/2022 Protein, Total 6.3 - 8.0 g/dL 7.2 Albumin 3.9 - 4.9 g/dL 4.6 Calcium 8.5 - 10.2 mg/dL 10.5 (H) Bilirubin, Total 0.2 - 1.3 mg/dL 0.3 Alkaline Phosphatase 34 - 123 U/L 115 AST 13 - 35 U/L 23 ALT 7 - 38 U/L 29 Glucose 74 - 99 mg/dL 128 (H) BUN 7 - 21 mg/dL 24 (H) Creatinine 0.58 - 0.96 mg/dL 0.86 Sodium 136 - 144 mmol/L 140 Potassium 3.7 - 5.1 mmol/L 4.5 Chloride 97 - 105 mmol/L 101 CO2 22 - 30 mmol/L 28 Anion Gap 9 - 18 mmol/L 11 eGFR >=60 mL/min/1.73m 69 WBC 3.70 - 11.00 k/uL 5.84 RBC 3.90 - 5.20 m/uL 4.43 Hemoglobin 11.5 - 15.5 g/dL 13.4 Hematocrit 36.0 - 46.0 % 41.1 MCV 80.0 - 100.0 fL 92.8 MCH 26.0 - 34.0 pg 30.2 MCHC 30.5 - 36.0 g/dL 32.6 RDW-CV 11.5 - 15.0 % 13.9 Platelet Count 150 - 400 k/uL 217 MPV 9.0 - 12.7 fL 11.2 Absolute nRBC <0.01 k/uL <0.01 Cholesterol, Total <200 mg/dL 202 (H) Triglyceride <150 mg/dL 284 (H) HDL Cholesterol >39 mg/dL 45 Non HDL Cholesterol <130 mg/dL 157 (H) Fasting Time hrs 12 VLDL Cholesterol <30 mg/dL 57 (H) TC:HDL Ratio <5.10 4.49 LDL Cholesterol <100 mg/dL 100 (H) LDL:HDL Ratio <2.54 2.22 Hemoglobin A1C 4.3 - 5.6 % 6.4 (H) Estimated Average Glucose mg/dL 137 Vitamin D 25 Hydroxy 31.0 - 80.0 ng/mL 41.6 TSH 0.270 - 4.200 mIU/L 2.360 0.888 Free T4 0.9 - 1.7 ng/dL 1.4 1.4 Hemoglobin A1C (%) Date Value 01/26/2022 6.4 07/10/2021 6.7 01/15/2021 6.3 07/16/2020 6.4 07/10/2019 5.9 11/27/2018 5.9 03/16/2018 5.9 Hemoglobin A1C (POCT) (%) Date Value 06/21/2022 6.5 Assessment and Plan Encounter Diagnosis ICD-10-CM 1. IFG (impaired fasting glucose) R73.01 HEMOGLOBIN A1C (POC) Has not had 2 in a row fasting glucose at or over 126 or HgA1C at or over 6.5; continue working on diet and exercise for glycemic control 2. OPHELIA (obstructive sleep apnea) G47.33 Doing well on CPAP as noted in HPI. Uses routinely and benefits from use. Continues present management. 3. Gross hematuria R31.0 URINALYSIS, WITH MICROSCOPIC 4. Acquired hypothyroidism E03.9 5. Mixed hyperlipidemia E78.2 6. Vitamin D deficiency E55.9 VITAMIN D 25 HYDROXY 7. Primary hypertension I10 8. Class 3 severe obesity due to excess calories with body mass index (BMI) of 40.0 to 44.9 in adult, unspecified whether serious comorbidity present ([facility]) E66.01 Z68.41 9. Atherosclerosis of [place] coronary artery of [place] heart without angina pectoris I25.10 Stable on current meds. 10. S/P subtotal parathyroidectomy ([facility]) E89.2 Calcium, Vitamin D and iPTH havve been fine. Continue present management Above issues addressed with patient. Patient involved in shared decision making for management of medical issues. History and medications reviewed. Epic updated as needed Refills and/or prescriptions taken care of and meds adjusted as indicated after reviewed history, exam and labs. Health Maintenance reviewed. Updated record and/or ordered tests as recorded. Encouraged on efforts at healthy diet and regular exercise and adequate sleep. Clinically euthyroid. TSH fine. Continue to adjust dose of replacement as indicated based on symptoms and labs. Check lipids. Noted takes a 2 week break from statin every 6 months due to muscle aches. Further evaluation and treatment as indicated. Continue present meds.Continue present management. Pam Mcgill MD documented [facility] History of Present illness Narrative* Haily Alvarez APRN.DIRECTOR OF BUSINESS OPERATIONS - 03/19/2022 10:00 AM EST SUBJECTIVE: DTAP,TDAP,TD(2 - Td or Tdap) due on 12/18/2014 COVID-19 VACCINE(4 - Booster for Moderna series) due on 05/15/2021 ADVANCE DIRECTIVE DISCUSSION due on 03/07/2022 HPI Jarred Fair is a 81 year old female. 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 Stress Incontinence Symptomatic Menopausal Or Female Climacteric States Postmenopausal Atrophic Vaginitis Personal History of Colonic Polyps Other Sleep Disturbances Bruit Ophelia (Obstructive Sleep Apnea) Nonrheumatic Aortic Insufficiency With Aortic Stenosis Right-Sided Low Back Pain With Right-Sided Sciatica Left Knee Pain S/P Subtotal Parathyroidectomy ([facility]) S/P Avr (Aortic Valve Replacement) Asthma Vitamin D Deficiency Ifg (Impaired Fasting Glucose) Restrictive Lung Disease Decreased Diffusion Capacity Donald (Dyspnea On Exertion) Stage 3a Chronic Kidney Disease ([facility]) Anxiety and Depression Hypertensive Kidney Disease With Stage 3a Chronic Kidney Disease ([facility]) She notes feeling well, in her usual state of health. Followed by [facility]. No recent changes. TTE next week is planned. No current CP or SOBOE. HTN: Without reportheadache, chest pain, palpitations, dyspnea, peripheral edema, orthopnea, fatigue, and PND. Last 3 Encounter BP Readings: Date: BP: 11/11/2021 128/80 07/17/2021 122/72 03/13/2021 124/68 Hyperlipidemia. Ms. Fair reports doing well on current therapy. Her most recent lipid panels are: Cholesterol, Total (mg/dL) Date Value 01/26/2022 202 07/10/2021 183 01/15/2021 194 07/16/2020 187 HDL Cholesterol (mg/dL) Date Value 01/26/2022 45 07/10/2021 48 01/15/2021 39 07/16/2020 39 LDL Cholesterol (mg/dL) Date Value 01/26/2022 100 07/10/2021 102 01/15/2021 107 07/16/2020 98 Triglyceride (mg/dL) Date Value 01/26/2022 284 07/10/2021 163 01/15/2021 238 07/16/2020 252 Hypothyroidism. She is doing well on her current dose of Synthroid. TSH Date Value 01/26/2022 2.360 mIU/L 10/29/2021 1.170 mIU/L 01/15/2021 1.550 uU/mL 07/16/2020 3.810 uU/mL ) Asthma: Stable, controlled on current treatments. Not seeing mail distribution scheme examiner OPHELIA: Doing well with CPAP, no current complaints. IFG: Notes she has been on diets most of her life, working on lifestyle measures now. Last HgA1C was Hemoglobin A1C (%) Date Value 01/26/2022 6.4 07/10/2021 6.7 01/15/2021 6.3 07/16/2020 6.4 ) She notes chronic hair loss on the top of her head, not currently treating. Has not seen surveillance monitor or other specialist regarding this in the past. Review of Systems Constitutional: Negative. Respiratory: Negative. Cardiovascular: Negative. Endocrine: Negative. Objective BP 134/71 Pulse 76 Resp 16 Wt 99.3 kg (219 lb) LMP 09/04/2001 SpO2 100% BMI 43.49 kg/m Physical Exam Vitals and nursing note reviewed. Constitutional: Appearance: Normal appearance. HENT: Head: Normocephalic and atraumatic. Eyes: Conjunctiva/sclera: Conjunctivae normal. Cardiovascular: Rate and Rhythm: Normal rate and regular rhythm. Heart sounds: Normal heart sounds. Pulmonary: Effort: Pulmonary effort is normal. Breath sounds: Normal breath sounds. Abdominal: General: Bowel sounds are normal. Palpations: Abdomen is soft. Skin: General: Skin is warm and dry. Comments: thinning hair top of scalp Neurological: General: No focal deficit present. Mental Status: She is alert and oriented to person, place, and time. ALLERGIES Allergen Reactions Fragrances Other: See Comments Simvastatin Myalgia, Other: See Comments Environmental [Othe* Other: See Comments fragrances, smoke,vinegar(takes her breath away), jelly [place]ura,=swelling of throat. Jelly Beans Throat got real tight and cough could not breath Nifedipine hypotensive, light headed Medications APPLE CIDER VINEGAR ORAL Take by mouth. albuterol HFA (VENTOLIN HFA) 90 mcg/actuation inhaler Inhale 2 Puffs as instructed every 4 hours asneeded. clobetasol (TEMOVATE) 0.05 % ointment Clobetasol Propionate 0.05 % sham CPAP Needs replacement CPAP at 9cm H2O with humidification. Refills for Mask (per patient preference) optional chin strap (if indicated) , filters, tubing, humidifier and lifetime supplies. G47.33 Zinc 50 mg tab Take 1 tablet by mouth once daily. amLODIPine (NORVASC) 10 mg tablet Take 1 tablet by mouth once daily. (Dr. Olguin) rosuvastatin (CRESTOR) 5 mg tablet Take 1 tablet by mouth every Tuesday,Tuesday,Tuesday. ubidecarenone (CO Q-10 ORAL) Take by mouth once daily. lisinopril (ZESTRIL, PRINIVIL) 40 mg tablet Take 1 tablet by mouth once daily. carvedilol (COREG) 6.25 mg tablet Take 1 tablet by mouth twice daily. Multivitamin capsule Take 1 capsule by mouth once daily. furosemide (LASIX) 40 mg tablet Take 40 mg by mouth once daily. vitamin e 1,000 unit capsule Take 1,000 Units by mouth once daily. BIOTIN ORAL Take by mouth. VITAMIN A PALMITATE ORAL Take by mouth. Cetirizine 10 mg cap Take by mouth. Cholecalciferol, Vitamin D3, 1,000 unit cap Take 1 capsule by mouth once daily. aspirin, enteric coated (ASPIRIN, ENTERIC COATED) 81 mg EC tablet Take 1 tablet by mouth once daily. COMPOUNDED PRESCRIPTION CPAP head gear Diagnosis :OPHELIA 327.23 OMEGA-3 FATTY ACIDS-FISH OIL 300 MG-1,000 MG CAP Take one(1) tablet daily. diphenhydramine hcl(BENADRYL 25 MG CAP) Take one(1) tablet daily at bedtime as necessary (uses 5-6 x's a week) levothyroxine (SYNTHROID) 137 mcg tablet Take 1 tablet by mouth daily before breakfast. montelukast (SINGULAIR) 10 mg tablet Take 1 tablet by mouth once daily. As directed glucosamine HCl/chondroitin mccarthy (GLUCOSAMINE-CHONDROITIN ORAL) Take by mouth once daily. (Patient not taking: Reported on 03/19/2022) PAST MEDICAL HISTORY Diagnosis Date Allergic rhinitis, cause unspecified Allergic rhinitis Benign neoplasm of colon Disorder of bone and cartilage, unspecified Dysmetabolic syndrome X 06/28/2006 Started on Januvia by Dr. Toure for DM prevention since did not tolerate metformin Nonrheumatic aortic insufficiency with aortic stenosis Dr. Olguin (patient support assistant). S/P [facility] 12/2016 Obesity, unspecified Other diseases of pharynx, not elsewhere classified(478.29) Personal history of colonic polyps Pure hyperglyceridemia Snoring Unspecified asthma(493.90) Unspecified cardiovascular disease AI and some CAD on cath ([facility] follows) Unspecified essential hypertension Unspecified hypothyroidism Social History Tobacco Use Smoking status: Never Smokeless tobacco: Never Substance Use Topics Alcohol use: No Drug use: No Component Latest Ref Rng & Units 07/10/2021 08/20/2021 10/29/2021 01/26/2022 Protein, Total 6.3 - 8.0 g/dL 7.2 7.2 Albumin 3.9 - 4.9 g/dL 4.3 4.6 Calcium 8.5 - 10.2 mg/dL 10.7 (H) 10.5 (H) Bilirubin, Total 0.2 - 1.3 mg/dL 0.4 0.3 Alkaline Phosphatase 34 - 123 U/L 109 115 AST 13 - 35 U/L 21 23 ALT 7 - 38 U/L 27 29 Glucose 74 - 99 mg/dL 124 (H) 128 (H) BUN 7 - 21 mg/dL 23 (H) 24 (H) Creatinine 0.58 - 0.96 mg/dL 0.99 (H) 0.86 Sodium 136 - 144 mmol/L 141 140 Potassium 3.7 - 5.1 mmol/L 4.3 4.5 Chloride 97 - 105 mmol/L 102 101 CO2 22 - 30 mmol/L 28 28 Anion Gap 9 - 18 mmol/L 11 11 eGFR >=60 mL/min/1.73m 58 (L) 69 WBC 3.70 - 11.00 k/uL 5.79 5.84 RBC 3.90 - 5.20 m/uL 4.44 4.43 Hemoglobin 11.5 - 15.5 g/dL 12.9 13.4 Hematocrit 36.0 - 46.0 % 40.2 41.1 MCV 80.0 - 100.0 fL 90.5 92.8 MCH 26.0 - 34.0 pg 29.1 30.2 MCHC 30.5 - 36.0 g/dL 32.1 32.6 RDW-CV 11.5 - 15.0 % 13.6 13.9 Platelet Count 150 - 400 k/uL 235 217 MPV 9.0 - 12.7 fL 10.6 11.2 Absolute nRBC <0.01 k/uL <0.01 <0.01 Cholesterol, Total <200 mg/dL 183 202 (H) Triglyceride <150 mg/dL 163 (H) 284 (H) HDL Cholesterol >39 mg/dL 48 45 Non HDL Cholesterol <130 mg/dL 135 (H) 157 (H) Fasting Time hrs 12 12 VLDL Cholesterol <30 mg/dL 33 (H) 57 (H) TC:HDL Ratio <5.10 3.81 4.49 LDL Cholesterol <100 mg/dL 102 (H) 100 (H) LDL:HDL Ratio <2.54 2.13 2.22 Hemoglobin A1C 4.3 - 5.6 % 6.7 (H) 6.4 (H) Estimated Average Glucose mg/dL 146 137 Free T4 0.9 - 1.7 ng/dL 1.3 1.6 1.4 TSH 0.270 - 4.200 mIU/L 5.700 (H) 1.170 2.360 Vitamin D 25 Hydroxy 31.0 - 80.0 ng/mL 53.6 41.6 PTH, Intact 15 - 65 pg/mL 65 Phosphorus 2.7 - 4.8 mg/dL 3.0 ASSESSMENT/PLAN: 1. Primary hypertension - ICD9: 401.9, ICD10: I10 (primary diagnosis) controlled - Continue current medication(s) - Encouraged dietary sodium restriction/DASH diet - Recommended regular aerobic exercise. - CBC + DIFF - COMP METABOLIC PANEL 2. Encounter for immunization - ICD9: V03.89, ICD10: Z23 3. Atherosclerosis of [place] coronary artery of [place] heart without angina pectoris - ICD9: 414.01, ICD10: I25.10 4. S/P AVR (aortic valve replacement) - ICD9: V43.3, ICD10: Z95.2 Followed by [facility], has upcoming appointment 5. Mixed hyperlipidemia - ICD9: 272.2, ICD10: E78.2 Recommend a plant based diet such as Mediterranean diet with plenty of vegetables, fruits,whole grains, fish, chicken, turkey or plant proteins and routine exercise such as walking Stable, currently controlled, continue to monitor. - COMP METABOLIC PANEL - LIPID PANEL BASIC 6. Nonrheumatic aortic insufficiency with aortic stenosis - ICD9: 424.1, ICD10: I35.2 [facility] following 7. Class 3 severe obesity due to excess calories with body mass index (BMI) of 40.0 to 44.9 in adult, unspecified whether serious comorbidity present (HCC) - ICD9: 278.01, V85.41, ICD10: E66.01, Z68.41 Endorse portion control and routine exercise 8. History of asthma - ICD9: V12.69, ICD10: Z87.09 Stable, currently controlled, continue to monitor. 9. Acquired hypothyroidism - ICD9: 244.9, ICD10: E03.9 Stable, currently controlled, continue to monitor. - COMP METABOLIC PANEL - TSH BLD - LEVOTHYROXINE 137 MCG TABLET 10. IFG (impaired fasting glucose) - ICD9: 790.21, ICD10: R73.01 Endorse avoidance of excess carbohydrate intake, portion control and routine exercise such as walking - HGB A1C 11. Acquired hypothyroidism - ICD9: 244.9, ICD10: E03.9 Stable weight Stable, currently controlled, continue to monitor. - COMP METABOLIC PANEL - TSH BLD - LEVOTHYROXINE 137 MCG TABLET 12. Asthma, unspecified asthma severity, unspecified whether complicated, unspecified whether persistent - ICD9: 493.90, ICD10: J45.909 Stable, currently controlled, continue to monitor. - Continue current meds - Avoidance of triggers recommended - MONTELUKAST 10 MG TABLET Haily Alvarez APRN.CNS Medical Decision Making: Problems: Moderate: 2+ stable chronic illnesses Data: Unique test(s) ordered: 3+ Risk: Moderate: Drug management Medical Decision Making Level: 4 - Moderate documented in this encounter[facility] [place] Instructions* Patient Instructions* Haily Alvarez APRN.CNS - 03/19/2022 9:55 AM EST Check to see if your insurance covers Tdap (tetanus diphtheria pertussis) vaccine and what locationto get the vaccine -usually best covered at your local pharmacy where you get prescriptions filled documented in this encounterSelect [facility] [place] History of Present illness Narrative* Pam Mcgill MD - 11/11/2021 11:16 AM EDT This note was created using iGoriter. Subjective Jarred Fair is a 81 year old female. Patient presents with: Follow Up SUBJECTIVE: Jarred Fair is a 81 year old year old lady here today for follow up appointment for review of medical conditions. Doing okay. Got weight off that had gained when kids were visiting. PAST MEDICAL HISTORY Diagnosis Date Allergic rhinitis, cause unspecified Allergic rhinitis Benign neoplasm of colon Disorder of bone and cartilage, unspecified Dysmetabolic syndrome X 06/28/2006 Started on Januvia by Dr. Toure for DM prevention since did not tolerate metformin Nonrheumatic aortic insufficiency with aortic stenosis Dr. Olguin (patient support assistant). S/P [facility] 12/2016 Obesity, unspecified Other diseases of pharynx, not elsewhere classified(478.29) Personal history of colonic polyps Pure hyperglyceridemia Snoring Unspecified asthma(493.90) Unspecified cardiovascular disease AI and some CAD on cath ([facility]) Unspecified essential hypertension Unspecified hypothyroidism Current Outpatient Medications Medication Sig clobetasol (TEMOVATE) 0.05 % ointment Clobetasol Propionate 0.05 % sham levothyroxine (SYNTHROID) 137 mcg tablet Take 1 tablet by mouth daily before breakfast. albuterol HFA (VENTOLIN HFA) 90 mcg/actuation inhaler Inhale 2 Puffs as instructed every 4 hours asneeded. montelukast (SINGULAIR) 10 mg tablet Take 1 tablet by mouth once daily. As directed CPAP Needs replacement CPAP at 9cm H2O with humidification. Refills for Mask (per patient preference) optional chin strap (if indicated) , filters, tubing, humidifier and lifetime supplies. G47.33 Zinc 50 mg tab Take 1 tablet by mouth once daily. amLODIPine (NORVASC) 10 mg tablet Take 1 tablet by mouth once daily. (Dr. Olguin) rosuvastatin (CRESTOR) 5 mg tablet Take 1 tablet by mouth every Tuesday,Tuesday,Tuesday. glucosamine HCl/chondroitin mccarthy (GLUCOSAMINE-CHONDROITIN ORAL) Take by mouth once daily. ubidecarenone (CO Q-10 ORAL) Take by mouth once daily. lisinopril (ZESTRIL, PRINIVIL) 40 mg tablet Take 1 tablet by mouth once daily. carvedilol (COREG) 6.25 mg tablet Take 1 tablet by mouth twice daily. Multivitamin capsule Take 1 capsule by mouth once daily. furosemide (LASIX) 40 mg tablet Take 40 mg by mouth once daily. vitamin e 1,000 unit capsule Take 1,000 Units by mouth once daily. BIOTIN ORAL Take by mouth. VITAMIN A PALMITATE ORAL Take by mouth. Cetirizine 10 mg cap Take by mouth. Cholecalciferol, Vitamin D3, 1,000 unit cap Take 1 capsule by mouth once daily. aspirin, enteric coated (ASPIRIN, ENTERIC COATED) 81 mg EC tablet Take 1 tablet by mouth once daily. COMPOUNDED PRESCRIPTION CPAP head gear Diagnosis :OPHELIA 327.23 OMEGA-3 FATTY ACIDS-FISH OIL 300 MG-1,000 MG CAP Take one(1) tablet daily. diphenhydramine hcl(BENADRYL 25 MG CAP) Take one(1) tablet daily at bedtime as necessary (uses 5-6 x's a week) charlie root (CHARLIE EXTRACT ORAL) Take by mouth. acetaminophen (TYLENOL EXTRA STRENGTH) 500 mg tablet Take 2 tablets by mouth three times daily. No current facility-administered medications for this visit. Review of Systems Objective BP 128/80 Pulse 71 Wt 99.3 kg (219 lb) LMP 09/04/2001 SpO2 96% BMI 43.49 kg/m Last 5 Encounter Wt Readings: Date: Wt: 11/11/2021 99.3 kg (219 lb) 07/17/2021 98.9 kg (218 lb) 03/13/2021 97.5 kg (215 lb) 12/03/2020 98.4 kg (217 lb) 08/12/2020 98.8 kg (217 lb 12.8 oz) No waist measurement recorded Estimated body mass index is 43.49 kg/m as calculated from the following: Height as of 08/12/20: 151.1 cm (4' 11.5). Weight as of this encounter: 99.3 kg (219 lb). Last 5 Encounter BP Readings: Date: BP: 11/11/2021 128/80 07/17/2021 122/72 03/13/2021 124/68 12/03/2020 124/72 07/28/2020 136/78 Physical Exam Constitutional: Appearance: Normal appearance. HENT: Head: Normocephalic. Eyes: Conjunctiva/sclera: Conjunctivae normal. Cardiovascular: Rate and Rhythm: Normal rate and regular rhythm. Heart sounds: Normal heart sounds. Comments: Trace bilateral lower extremity pretibial pitting edema Pulmonary: Effort: Pulmonary effort is normal. Breath sounds: Normal breath sounds. Skin: General: Skin is warm and dry. Neurological: General: No focal deficit present. Mental Status: She is alert and oriented to person, place, and time. Psychiatric: Mood and Affect: Mood normal. Behavior: Behavior normal. Thought Content: Thought content normal. Judgment: Judgment normal. Component Latest Ref Rng & Units 08/20/2021 10/29/2021 PTH, Intact 15 - 65 pg/mL 65 Phosphorus 2.7 - 4.8 mg/dL 3.0 TSH 0.270 - 4.200 mIU/L 1.170 Free T4 0.9 - 1.7 ng/dL 1.6 Assessment and Plan ASSESSMENT/PLAN: Encounter Diagnosis ICD-10-CM 1. Essential hypertension I10 COMP METABOLIC PANEL CBC 2. Asthma, unspecified asthma severity, unspecified whether complicated, unspecified whether persistent J45.909 montelukast (SINGULAIR) 10 mg tablet 3. Vitamin D deficiency E55.9 4. IFG (impaired fasting glucose) R73.01 COMP METABOLIC PANEL HGB A1C 5. S/P subtotal parathyroidectomy ([facility]) E89.2 VITAMIN D 25 HYDROXY COMP METABOLIC PANEL 6. Mixed hyperlipidemia E78.2 LIPID PANEL BASIC 7. Acquired hypothyroidism E03.9 TSH BLD T4 FREE/FREE THYROX 8. Class 3 severe obesity due to excess calories with body mass index (BMI) of 40.0 to 44.9 in adult, unspecified whether serious comorbidity present ([facility]) E66.01 Z68.41 9. Encounter for long-term current use of medication Z79.899 COMP METABOLIC PANEL CBC Above issues addressed with patient. Patient involved in shared decision making for management of medical issues. History and medications reviewed. Epic updated as needed Refills and/or prescriptions taken care of and meds adjusted as indicated after reviewed history, exam and labs. Health Maintenance reviewed. Updated record and/or ordered tests as recorded. Encouraged on efforts at healthy diet and regular exercise and adequate sleep. Pam Mcgill MD documented in this encounter[facility] History of Present illness Narrative* Maryellen Allen Tech - 10/28/2021 1:30 PM EDT Radiology Service Progress Note PATIENT NAME: Jarred Fair DATE OF SERVICE: October 28, 2021 TIME: 2:01 PM PATIENT IDENTITY VERIFICATION COMPLETED USING TWO (2) IDENTIFIERS: Name and Date of confirmedby patient verbally. FALL SCREENING: Has the patient had 2 falls in the last year or 1 fall with injury or currently using an Ambulatory Assistive Device (Walker, Cane, Wheelchair, Crutches, etc.)? No PATIENT GENDER DATA: Female. status: status: NO. PATIENT RELEVANT IMPLANT DATA REVIEWED: Not Applicable RADIOLOGY DEPARTMENT: Mammography PERIPHERAL IV DATA: Not applicable SIGNED BY: Maryellen Allen Mobio October 28, 2021 2:01 PM documented in this encounterSelect [facility] [place]07-15-2022 Miscellaneous Notes* Telephone Encounter - Haily Alvarez APRN.CNS - 09/18/2021 4:08 PM EDT Please schedule diagnostic mammogram and ultrasound documented in this encounterSelect [facility] [place]05-13-2022 History of Present illness Narrative* Pam Mcgill MD - 07/17/2021 11:23 AM EDT This note was created using TM3 Software. Subjective Jarred Fair is a 80 year old female. Patient presents with: Follow Up SUBJECTIVE: Jarred Fari is a 80 year old year old lady here today for follow up appointment for review of medical conditions. Bob and Christa are on her HCDPOA. Has been trying to adjust what has been eating--labs show improvement below. Has air fryer. Blood pressure controlled without adverse effects from medications. PAST MEDICAL HISTORY Diagnosis Date Allergic rhinitis, cause unspecified Allergic rhinitis Benign neoplasm of colon Disorder of bone and cartilage, unspecified Dysmetabolic syndrome X 06/28/2006 Started on Januvia by Dr. Toure for DM prevention since did not tolerate metformin Nonrheumatic aortic insufficiency with aortic stenosis Dr. Olguin (patient support assistant). S/P [facility] 12/2016 Obesity, unspecified Other diseases of pharynx, not elsewhere classified(478.29) Personal history of colonic polyps Pure hyperglyceridemia Snoring Unspecified asthma(493.90) Unspecified cardiovascular disease AI and some CAD on cath ([facility] follows) Unspecified essential hypertension Unspecified hypothyroidism Current Outpatient Medications Medication Sig clobetasol (TEMOVATE) 0.05 % ointment Clobetasol Propionate 0.05 % sham levothyroxine (SYNTHROID) 137 mcg tablet Take 1 tablet by mouth daily before breakfast. albuterol HFA (VENTOLIN HFA) 90 mcg/actuation inhaler Inhale 2 Puffs as instructed every 4 hours asneeded. montelukast (SINGULAIR) 10 mg tablet Take 1 tablet by mouth once daily. As directed charlie root (CHARLIE EXTRACT ORAL) Take by mouth. CPAP Needs replacement CPAP at 9cm H2O with humidification. Refills for Mask (per patient preference) optional chin strap (if indicated) , filters, tubing, humidifier and lifetime supplies. G47.33 Zinc 50 mg tab Take 1 tablet by mouth once daily. amLODIPine (NORVASC) 10 mg tablet Take 1 tablet by mouth once daily. (Dr. Olguin) rosuvastatin (CRESTOR) 5 mg tablet Take 1 tablet by mouth every Tuesday,Tuesday,Tuesday. glucosamine HCl/chondroitin mccarthy (GLUCOSAMINE-CHONDROITIN ORAL) Take by mouth once daily. ubidecarenone (CO Q-10 ORAL) Take by mouth once daily. lisinopril (ZESTRIL, PRINIVIL) 40 mg tablet Take 1 tablet by mouth once daily. carvedilol (COREG) 6.25 mg tablet Take 1 tablet by mouth twice daily. acetaminophen (TYLENOL EXTRA STRENGTH) 500 mg tablet Take 2 tablets by mouth three times daily. Multivitamin capsule Take 1 capsule by mouth once daily. furosemide (LASIX) 40 mg tablet Take 40 mg by mouth once daily. vitamin e 1,000 unit capsule Take 1,000 Units by mouth once daily. BIOTIN ORAL Take by mouth. VITAMIN A PALMITATE ORAL Take by mouth. Cetirizine (ZYRTEC) 10 mg cap Take by mouth. Cholecalciferol, Vitamin D3, 1,000 unit cap Take 1 capsule by mouth once daily. aspirin, enteric coated (ECOTRIN LOW STRENGTH) 81 mg EC tablet Take 1 tablet by mouth once daily. COMPOUNDED PRESCRIPTION CPAP head gear Diagnosis :OPHELIA 327.23 OMEGA-3 FATTY ACIDS-FISH OIL 300 MG-1,000 MG CAP Take one(1) tablet daily. diphenhydramine hcl(BENADRYL 25 MG CAP) Take one(1) tablet daily at bedtime as necessary (uses 5-6 x's a week) No current facility-administered medications for this visit. Review of Systems Objective BP 122/72 Pulse 76 Wt 98.9 kg (218 lb) LMP 09/04/2001 BMI 43.29 kg/m Last 5 Encounter Wt Readings: Date: Wt: 07/17/2021 98.9 kg (218 lb) 03/13/2021 97.5 kg (215 lb) 12/03/2020 98.4 kg (217 lb) 08/12/2020 98.8 kg (217 lb 12.8 oz) 07/28/2020 98.2 kg (216 lb 6.4 oz) No waist measurement recorded Estimated body mass index is 43.29 kg/m as calculated from the following: Height as of 08/12/20: 151.1 cm (4' 11.5). Weight as of this encounter: 98.9 kg (218 lb). Last 5 Encounter BP Readings: Date: BP: 07/17/2021 122/72 03/13/2021 124/68 12/03/2020 124/72 07/28/2020 136/78 05/06/2020 122/74 Physical Exam Constitutional: Appearance: Normal appearance. HENT: Head: Normocephalic. Eyes: Conjunctiva/sclera: Conjunctivae normal. Cardiovascular: Rate and Rhythm: Normal rate and regular rhythm. Heart sounds: Normal heart sounds. Pulmonary: Effort: Pulmonary effort is normal. Breath sounds: Normal breath sounds. Skin: General: Skin is warm and dry. Neurological: General: No focal deficit present. Mental Status: She is alert and oriented to person, place, and time. Psychiatric: Attention and Perception: Attention and perception normal. Mood and Affect: Mood normal. Speech: Speech normal. Behavior: Behavior normal. Thought Content: Thought content normal. Judgment: Judgment normal. Component Latest Ref Rng & Units 01/15/2021 07/10/2021 Protein, Total 6.3 - 8.0 g/dL 6.8 7.2 Albumin 3.9 - 4.9 g/dL 4.2 4.3 Calcium 8.5 - 10.2 mg/dL 10.6 (H) 10.7 (H) Bilirubin, Total 0.2 - 1.3 mg/dL 0.4 0.4 Alkaline Phosphatase 34 - 123 U/L 102 109 AST 13 - 35 U/L 24 21 Glucose 74 - 99 mg/dL 118 (H) 124 (H) BUN 7 - 21 mg/dL 20 23 (H) Creatinine 0.58 - 0.96 mg/dL 0.95 0.99 (H) Sodium 136 - 144 mmol/L 139 141 Potassium 3.7 - 5.1 mmol/L 4.4 4.3 Chloride 97 - 105 mmol/L 101 102 CO2 22 - 30 mmol/L 28 28 Anion Gap 9 - 18 mmol/L 10 11 ALT 7 - 38 U/L 33 27 eGFR- >60 eGFR-All Other Races . 57 eGFR >=60 mL/min/1.73m 58 (L) WBC 3.70 - 11.00 k/uL 5.24 5.79 RBC 3.90 - 5.20 m/uL 4.45 4.44 Hemoglobin 11.5 - 15.5 g/dL 13.4 12.9 Hematocrit 36.0 - 46.0 % 41.4 40.2 MCV 80.0 - 100.0 fL 93.0 90.5 MCH 26.0 - 34.0 pg 30.1 29.1 MCHC 30.5 - 36.0 g/dL 32.4 32.1 RDW-CV 11.5 - 15.0 % 13.6 13.6 Platelet Count 150 - 400 k/uL 212 235 MPV 9.0 - 12.7 fL 11.5 10.6 Absolute nRBC <0.01 k/uL <0.01 <0.01 Cholesterol, Total <200 mg/dL 194 183 Triglyceride <150 mg/dL 238 (H) 163 (H) HDL Cholesterol >39 mg/dL 39 (L) 48 LDL Cholesterol <100 mg/dL 107 (H) 102 (H) Non HDL Cholesterol <130 mg/dL 155 (H) 135 (H) Fasting Time hrs 12 12 VLDL Cholesterol <30 mg/dL 48 (H) 33 (H) TC:HDL Ratio <5.10 4.97 3.81 LDL:HDL Ratio <2.54 2.74 (H) 2.13 Hemoglobin A1C 4.3 - 5.6 % 6.3 (H) 6.7 (H) Estimated Average Glucose mg/dL 134 146 TSH 0.270 - 4.200 mIU/L 1.550 5.700 (H) Free T4 0.9 - 1.7 ng/dL 1.4 1.3 Free T3 2.3 - 4.1 pg/mL 2.5 Vitamin D 25 Hydroxy 31.0 - 80.0 ng/mL 36.3 53.6 Assessment and Plan ASSESSMENT/PLAN: 1. Acquired hypothyroidism - ICD9: 244.9, ICD10: E03.9 (primary diagnosis) - Instructed patient on importance of taking on an empty stomach either first thing in the morning or at bedtime. TSH elevated. Recheck labs. Adjust dose as indicated. - TSH BLD - T4 FREE/FREE THYROX 2. Vitamin D deficiency - ICD9: 268.9, ICD10: E55.9 - PTH INTACT BLD - PHOSPHORUS INORGANIC 3. Essential hypertension - ICD9: 401.9, ICD10: I10 - good control - Continue current medication(s) - Recommended regular aerobic exercise. - Recommend home blood pressure monitoring, to bring results in on next visit - Goal of BP <130/80 4. IFG (impaired fasting glucose) - ICD9: 790.21, ICD10: R73.01 Needs to keep working on diet and exercise with lifestyle changes for effective weight loss as wellas prevention of DM, and control of BP and lipids. 5. S/P subtotal parathyroidectomy (HCC) - ICD9: 252.8, ICD10: E89.2 - PTH INTACT BLD - PHOSPHORUS INORGANIC 6. Hypercalcemia - ICD9: 275.42, ICD10: E83.52 - PTH INTACT BLD - PHOSPHORUS INORGANIC 7. Breast cancer screening by mammogram - ICD9: V76.12, ICD10: Z12.31 - Set up for mammogram, yearly mammogram recommended - Follow up for annual exam in one year. - TAD SCREENING 8. Encounter for long-term current use of medication - ICD9: V58.69, ICD10: Z79.899 Pam Mcgill MD documented in this encounterSelect [facility]05-11-2022 History of Past illness Narrative* Problem Noted Date Resolved Date Hypertensive kidney disease with stage 3a chronic kidney disease 07/15/2021 06/21/2022 Stage 3a chronic kidney disease 01/16/2021 06/21/2022 Overview: Stable; labs ordered for follow up CAP (community acquired pneumonia) 10/30/2009 05/20/2015 Overview: 10/18/09 - 10/20/09 [facility] admission- levaquin tx. RLL pneumonia. Continued tx with levaquin until 11/06/09-improved Pain in joint, lower leg 10/22/2008 010 Atypical mole 10/22/2008 11/22/2008 Pure hyperglyceridemia 0 documented as of this encounter (statuses as of 07/19/2022) [facility]11-[facility]-2017 Fall risk xwhnruekhp0075/11/09FALLRSKASSESNoFall risk assessmentWselect specialty hospital-[facility] [email or web address] Work Phone: 1(731) 829-705410-18-2017 Evaluation note* Diagnosis Onset Date Resolution Status Essential hypertension chron ic H/O aortic valve replacement December 22, 2016 chronic Hyperlipidemia [facility] Work Phone: 1(284) 226-687906-22-2017 Fall risk trgrfshtpc9405/06/22FALLRSKASSES NoFall risk assessmentWORDISSIMOlandmark medical center [email or web address] Work Phone: 1(780) 585-364705-30-2017 Fall risk wlzxmusqwo5912/05/30FALLRSKACOX MONETT NoFall risk assessmentWselect specialty hospital-[facility] [email or web address] Work Phone: 1(763) 449-471608-26-2010 History of Past illness Narrative* Problem Noted Date Resolved Date CAP (community acquired pneumonia) 10/30/2009 05/20/2015 Overview: 10/18/09 - 10/20/09 [facility] admission- levaquin tx. RLL pneumonia. Continued tx with levaquin until 11/06/09-improved Pain in joint, lower leg 10/22/2008 010 Atypical mole 10/22/2008 11/22/2008 Pure hyperglyceridemia 0 documented as of this encounter (statuses as of 08/20/2021) [facility] History of Past illness Narrative* Problem Noted Date Resolved Date CAP (community acquired pneumonia) 10/30/2009 05/20/2015 Overview: 10/18/09 - 10/20/09 [facility] admission- levaquin tx. RLL pneumonia. Continued tx with levaquin until 11/06/09-improved Pain in joint, lower leg 10/22/2008 010 Atypical mole 10/22/2008 11/22/2008 Pure hyperglyceridemia 0 documented as of this encounter (statuses as of 2021) [facility] History of Past illness Narrative* Problem Noted Date Resolved Date CAP (community acquired pneumonia) 10/30/2009 05/20/2015 Overview: 10/18/09 - 10/20/09 [facility] admission- levaquin tx. RLL pneumonia. Continued tx with levaquin until 11/06/09-improved Pain in joint, lower leg 10/22/2008 010 Atypical mole 10/22/2008 11/22/2008 Pure hyperglyceridemia 201 0 documented as of this encounter (statuses as of 09/18/2021) [address]26-2010 History of Past illness Narrative* Problem Noted Date Resolved Date CAP (community acquired pneumonia) 10/30/2009 05/20/2015 Overview: 10/18/09 - 10/20/09 [facility] admission- levaquin tx. RLL pneumonia. Continued tx with levaquin until 11/06/09-improved Pain in joint, lower leg 10/22/2008 010 Atypical mole 10/22/2008 11/22/2008 Pure hyperglyceridemia 201 0 documented as of this encounter (statuses as of 10/29/2021) [address]26-2010 History of Past illness Narrative* Problem Noted Date Resolved Date CAP (community acquired pneumonia) 10/30/2009 05/20/2015 Overview: 10/18/09 - 10/20/09 [facility] admission- levaquin tx. RLL pneumonia. Continued tx with levaquin until 11/06/09-improved Pain in joint, lower leg 10/22/2008 010 Atypical mole 10/22/2008 11/22/2008 Pure hyperglyceridemia 05201 0 documented as of this encounter (statuses as of 12/31/2021) [facility] History of Past illness Narrative* Problem Noted Date Resolved Date CAP (community acquired pneumonia) 10/30/2009 05/20/2015 Overview: 10/18/09 - 10/20/09 [facility] admission- levaquin tx. RLL pneumonia. Continued tx with levaquin until 11/06/09-improved Pain in joint, lower leg 10/22/2008 010 Atypical mole 10/22/2008 11/22/2008 Pure hyperglyceridemia 0 documented as of this encounter (statuses as of 03/19/2022) [facility] Author Nahun Diaz [facility] Note Date/Time August 03, 2024 12:05 pm [facility] Medical Records Department [address] [place] [address] Discharge Summary 08/03/24 1157 MR#: [id number] Acct: [id number] Name: FRANK FAIR Rep #:[id number] : 1940 83 From: Nahun Diaz MD PCP: Dr. Pam Mcgill MD Status:AD IN Location: [place] [address]- Providers Date of Admission: 08/01/24 Primary Care Physician: Dr. Pam Mcgill MD Reason For Visit: CHF Diagnosis Discharge Diagnosis (1) Shortness of breath: Status: Acute Code(s): R06.02 - Shortness of breath Plan Patient is an 83-year-old lady admitted with progressive shortness of breath imaging studies demonstrated features consistent with congestive heart failure. Admitted to a monitored bed for further management 1. Acute congestive heart failure with suspected preserved ejection fraction ? Patient admitted to a monitored bed treatment initiated with strict input and output, daily weight, low-sodium diet, fluid restriction and diuretic therapy with furosemide. As part of evaluation ordered 2D echo for LVEF assessment ? 08/02/2024;Patient is an 83-year-old lady admitted with progressive shortness of breath and assessment of acute congestive heart failure made. Started on furosemide admitted to a monitored bed. Patient weight on admission was 95.4, currently down to 93.8. I's and O's and negative fluid balance of 400 mL ? 08/03/2024; 2D echo result as below The estimated ejection fraction is 55-60 %. Bioprosthetic aortic valve With mildaortic stenosis Maximum pressure gradient of 31 mmHg With a mean pressure gradient of 16.5 mmHg Color-flow and Doppler revealed moderate aortic regurgitation Mild MR Trivial tricuspid regurgitation. 2. Acute hypoxia Secondary to above patient placed on supplemental oxygen titrated to keep saturation greater than 90 ? 08/02/2024; plan is to assess patient for possible home oxygen prior to discharge ? 08/03/2024; I have reviewed the oxygen testing, and this patient qualifies for the home equipment and portability. The patient is mobile in the home and the community. 3. Valvular heart disease ? With history of TAVR at [facility] in 2017 4. Class III obesity with BMI of 40.6 ? Complicating care, weight loss advised 5. Dyslipidemia ? Patient is on Zetia did continue 6. Allergic rhinitis ? Patient is on fluticasone discontinued home dose 7. Mild coronary artery disease ? Patient did not present with any anginal symptoms we will continue with monitoring 8. Diabetes mellitus type 2 ? Listed on patient history currently not on any therapeutics we will continue with monitoring 9. Obstructive sleep apnea ? Consistent use of PAP therapy encouraged 10. Hypokalemia ? Secondary to patient being on furosemide. Corrected low potassium per protocol repeat potassium levels ordered in a.m. for subsequent eval 11. Anemia ? Secondary to chronic disorder monitoring H&H and transfuse if patient becomes symptomatic or hemoglobin falls below 7 12. DVT prophylaxis ? Subcu heparin 13. Anemia ? Secondary to chronic disorder monitoring H&H and transfuse if patient becomes symptomatic or hemoglobin falls below 7 Time spent in the patient's overall evaluation,decision-making process, review of diagnostic data, adjustment of management, discussion with other providers, nursing nursing and ancillary staff involved in patient's care documentation, 38 Minutes Medications at Discharge Home Medications albuterol sulfate 90 mcg/actuation aerosol inhaler 1 puff inhalation Q4H PRN PRNAsthma 08/06/16 cholecalciferol (vitamin D3) 25 mcg (1,000 unit) tablet 1,000 unit PO DAILY 08/06/16 montelukast 10 mg tablet 10 mg PO DAILY 08/06/16 omega-3 fatty acids-fish oil 300 mg-1,000 mg capsule 1 ea PO DAILY 08/06/16 vitamin A 2,400 mcg capsule 8,000 unit PO DAILY 08/06/16 vitamin E mixed 1,000 unit capsule 1,000 unit PO DAILY 08/06/16 multivitamin 1 tab PO DAILY 02/16/17 aspirin 81 mg tablet,delayed release 81 mg PO DAILY@0800 #90 tabs 02/11/22 zinc gluconate 50 mg tablet 50 mg PO DAILY 02/11/22 lisinopril 40 mg tablet 40 mg PO DAILY #90 tabs 01/26/24 ezetimibe 10 mg tablet (Zetia) 10 mg PO DAILY #90 tabs 04/12/24 cetirizine 10 mg tablet 10 mg PO QDAY PRN allergy symptoms 04/17/24 magnesium 250 mg tablet 250 mg PO DAILY 04/17/24 rosuvastatin 5 mg tablet 5 mg PO DAILY 04/17/24 diphenhydramine HCl 25 mg capsule (Benadryl) 25 mg PO QHS PRN allergic reaction 07/05/24 fluticasone propionate 50 mcg/actuation nasal spray,suspension (Flonase Allergy Relief) 2 spray intranasal DAILY PRN allergy symptoms 07/05/24 levothyroxine 137 mcg tablet (Synthroid) 137 mcg PO QDAY 07/05/24 turmeric root extract 500 mg capsule 500 mg PO QDAY 07/05/24 amlodipine 5 mg tablet 5 mg PO DAILY #90 tabs 07/13/24 carvedilol 25 mg tablet 25 mg PO BID #180 tabs 07/31/24 spironolactone 25 mg tablet 25 mg PO DAILY #90 tabs 07/31/24 fluticasone propionate 115 mcg-salmeterol 21 mcg/actuation HFA inhaler (Advair HFA) 2 puff inhalation BID 08/01/24 furosemide 40 mg tablet 40 mg PO BID #120 tabs 08/03/24 potassium chloride 20 mEq tablet,extended release(part/cryst) 20 meq PO BIDCM #60 tabs 08/03/24 Physical Exam Narrative GENERAL: cooperative HEENT: Atraumatic; normocephalic EYES; Anicteric, Normal Conjunctiva NECK; supple, normal thyroid, RESPIRATORY: Diminished to auscultation CARDIOVASCULAR: Regular S1 S2, GI: soft, normoactive bowel sounds, : No Renal angle tenderness; EXTREMITIES: Bipedal edema MUSCULOSKELETAL: no muscle wasting NEURO: Awake; no lateralizing signs. SKIN: No Rash PSYCH; Flat affect Medical Records Data Medical Nutrition Assessment Dietitian: Malnutrition Criteria Met Start: 08/02/24 11:19 Freq: Status: Active Protocol: Document 08/02/24 15:29 SB (Rec: 08/02/24 15:29 SB [id number]) Nutrition Malnutrition Evidence of Yes Malnutrition Exists Malnutrition (severe Acute Illness/Injury ): Evidenced By Suboptimal Energy Intake (Severe),Weight Loss (Severe) Clinical Problem Acute Disease or Injury Related Malnutrition Etiology severe related to inadequate oral intake Signs/Symptoms as evidenced by 6% unintentional weight loss x 3 weeks and PO meeting <50% of estimated nutrition needs x 1 month. Status Active Problem Recommendation Dietitian Adjust to cardiac diet. Recommendations/ Will monitor weigh trends. Changes Weight / BMI Weight Weight: 93.3 kg Body Mass Index (BMI) 40.1 ABG / Lab / Microbiology Data 08/03/24 04:10 08/03/24 04:10 Laboratory: Laboratory Results - last 24 hr 08/03/24 04:10: WBC 7.8, RBC 4.16 L, Hgb 11.7 L, Hct 35.9 L, MCV 86.3, MCH 28.1,MCHC 32.6, RDW Std Deviation 47.7 H, RDW Coeff of Judson 15.0 H, Plt Count 209, MPV11.3, Immature Gran % (Auto) 0.300, Neut % (Auto) 62.5, Lymph % (Auto) 23.8, Rankin % (Auto) 10.5 H, Eos % (Auto) 2.4, Baso % (Auto) 0.5, Absolute Neuts (auto) 4.9, Absolute Lymphs (auto) 1.86, Nucleated RBC % 0, Sodium 141, Potassium 2.9 L, Chloride 99, Carbon Dioxide 28.0, Anion Gap 14, BUN 19, Creatinine 1.05, EstimCreat Clear Calc 42.87 L, Est GFR (MDRD) Non-Af 53 L, BUN/Creatinine Ratio 18.1,Glucose 111 H, Calcium 9.4 D/C Instructions Discharge Diet: 8 Cup Fluid Restriction and 2000 mg Sodium Diet Discharge Activity: Return to Normal Activity Call your doctor if you observe: Fever of 101 or Higher, Shortness of breath, Fainting spells and Chest pain DC O2, CPAP, BIPAP Needs Home O2 Discharge instructions: Yes Type of respiratory needs?: Oxygen Oxygen frequency: With Ambulation Oxygen liters per minute during Ambulation: 2 DC home with Oxygen: Yes Home O2 MD Review: I have reviewed the oxygen testing, and the patient qualifies for home oxygen equipment and portability. The patient is mobile in the home and the community. Meaningful Use Info Meaningful Use Meaningful Use Diagnoses (Choose all that apply): CHF CHF ZAHRAA/ARB ordered at discharge?: Yes Documented LVEF (%): 55 Ischemic Stroke Statin Dosing Therapy Reference: STATIN DOSE THERAPY REFERENCE: * Patients > 75 years receive moderate or high dose statin therapy. * Patients 75 years or YOUNGER should receive HIGH intensity statin dose unless contraindicated. You will be required to document reason for non-treatment if statin daily dose does not meet guidelines. HIGH DOSE STATIN THERAPY DAILY Atorvastatin > than or = to 40 mg Rosuvastatin > than or = to 20 mg Amlodipine + Atorvastatin > than or = to 2.5/40 mg Ezetimibe + Simvastatin 10/80 mg Simvastatin 80mg Discharge Plan Admission Admit Date/Time: 08/01/24 11:59 Attending Provider: Nahun Diaz Primary Care Provider: Pam Mcgill Discharge Orders/Prescriptions Prescriptions: New potassium chloride 20 mEq Tablet,Er Particles/Crystals 20 meq PO BIDCM Qty: 60 0RF Continued multivitamin tablet 1 tab PO DAILY zinc gluconate 50 mg tablet 50 mg PO DAILY aspirin 81 mg tablet,delayed release (DR/EC) 81 mg PO DAILY@0800 Qty: 90 3RF rosuvastatin 5 mg tablet 5 mg PO DAILY Rx Instructions: ONLY TAKE OIN TUESDAY AND TUESDAY magnesium 250 mg tablet 250 mg PO DAILY cetirizine 10 mg tablet 10 mg PO QDAY PRN (Reason: allergy symptoms) fluticasone propionate [Flonase Allergy Relief] 50 mcg/actuation spray,suspension 2 spray intranasal DAILY PRN (Reason: allergy symptoms) Rx Instructions: administer into each nostril levothyroxine [Synthroid] 137 mcg tablet 137 mcg PO QDAY Rx Instructions: Take 1 tab daily, add 1/2 tab on Sundays turmeric root extract 500 mg capsule 500 mg PO QDAY diphenhydramine HCl [Benadryl] 25 mg capsule 25 mg PO QHS PRN (Reason: allergic reaction) amlodipine 5 mg tablet 5 mg PO DAILY Qty: 90 4RF vitamin A 8,000 UNIT capsule 8,000 unit PO DAILY montelukast 10 MG tablet 10 mg PO DAILY Patient Comments: PT TAKES AT BEDTIME albuterol sulfate 1 PUFF inhaler 1 puff INHALATION Q4H PRN PRN (Reason: Asthma) cholecalciferol (vitamin D3) 1,000 UNIT tablet 1,000 unit PO DAILY omega-3 fatty acids-fish oil 1 EACH capsule 1 ea PO DAILY vitamin E mixed 1,000 UNIT capsule 1,000 unit PO DAILY fluticasone propion-salmeterol [Advair HFA] 115-21 mcg/actuation HFA aerosol inhaler 2 puff INHALATION BID lisinopril 40 mg tablet 40 mg PO DAILY Qty: 90 3RF ezetimibe [Zetia] 10 mg tablet 10 mg PO DAILY Qty: 90 3RF carvedilol 25 mg tablet 25 mg PO BID Qty: 180 3RF Rx Instructions: must administer with a meal/food spironolactone 25 mg tablet 25 mg PO DAILY Qty: 90 3RF Changed furosemide 40 mg tablet 40 mg PO BID Qty: 120 3RF Other Ambulatory Orders: Basic Metabolic Profile (BMP) (Routine) Timeframe: [id number] Facility: [facility] - Location: Laboratory Ordered By: Dr. Nahun Diaz Referrals / Follow Up: Pam Mcgill MD [Primary Care Provider] - Within 2 Weeks Disposition Disposition (needs filled in before D/C Order can be placed): Home, Self Care Charges/Coding Visit Charges Inpatient E&M: 78358 Disch Hosp >30min 08/03/24 1205 <Electronically signed by Nahun Diaz MD> Cosigner Signature (if applicable): CC: Dr. Nahun Diaz MD; Dr. Pam Mcgill MD~ Signed [facility] Work Phone: Evaluation note* Diagnosis Breast cancer screening by mammogram documented in this encounter [facility] [place] note* Diagnosis Acquired hypothyroidism- Primary Unspecified hypothyroidism Vitamin D deficiency Unspecified vitamin D deficiency Essential hypertension Unspecified essential hypertension IFG (impaired fasting glucose) Impaired fasting glucose S/P subtotal parathyroidectomy (HCC) Other postprocedural status Hypercalcemia Breast cancer screening by mammogram Encounter for long-term current use of medication documented in this encounter [facility] [place] note* Diagnosis Abnormal mammogram- Primary Abnormal mammogram, unspecified documented in this encounter [facility] note* Diagnosis Abnormal mammogram Abnormal mammogram, unspecified documented in this encounter [facility] note* Diagnosis Essential hypertension- Primary Unspecified essential hypertension Asthma, unspecified asthma severity, unspecified whether complicated, unspecified whether persistent Vitamin D deficiency Unspecified vitamin D deficiency IFG (impaired fasting glucose) Impaired fasting glucose S/P subtotal parathyroidectomy (HCC) Other postprocedural status Mixed hyperlipidemia Acquired hypothyroidism Unspecified hypothyroidism Class 3 severe obesity due to excess calories with body mass index (BMI) of 40.0 to 44.9 in adult, unspecified whether serious comorbidity present (HCC) Encounter for long-term current use of medication [facility] [place] [facility] Diagnosis Primary hypertension- Primary Unspecified essential hypertension Encounter for immunization Need for other specified prophylactic vaccination against single bacterial disease Atherosclerosis of [place] coronary artery of [place] heart without angina pectoris S/P AVR (aortic valve replacement) Heart valve replaced by other means Mixed hyperlipidemia Nonrheumatic aortic insufficiency with aortic stenosis Class 3 severe obesity due to excess calories with body mass index (BMI) of 40.0 to 44.9 in adult, unspecified whether serious comorbidity present (HCC) History of asthma Personal history of other diseases of respiratory system Acquired hypothyroidism Unspecified hypothyroidism IFG (impaired fasting glucose) Impaired fasting glucose Asthma, unspecified asthma severity, unspecified whether complicated, unspecified whether persistent [facility] [place] [facility]* Diagnosis Acute sinusitis, recurrence not specified, unspecified location- Primary [facility] [place] [facility]* Diagnosis IFG (impaired fasting glucose)- Primary Impaired fasting glucose OPHELIA (obstructive sleep apnea) Obstructive sleep apnea (adult) (pediatric) Gross hematuria Acquired hypothyroidism Unspecified hypothyroidism Mixed hyperlipidemia Vitamin D deficiency Unspecified vitamin D deficiency Primary hypertension Unspecified essential hypertension Class 3 severe obesity due to excess calories with body mass index (BMI) of 40.0 to 44.9 in adult, unspecified whether serious comorbidity present (HCC) Atherosclerosis of [place] coronary artery of [place] heart without angina pectoris S/P subtotal parathyroidectomy (HCC) Other postprocedural status [facility] [place] [facility]* Diagnosis Breast cancer screening by mammogram- Primary [facility] [place] [facility]* Diagnosis Abnormal mammogram of right breast- Primary [facility] [place] [facility]* Diagnosis Breast cancer screening by mammogram [facility] [place] [facility]* Diagnosis Abnormal mammogram of right breast documented in this encounter [facility]* Diagnosis Abnormal mammogram of right breast [facility] [place] [facility]* Diagnosis Abnormal mammogram of right breast- Primary [facility] [place] [facility]* Diagnosis Acquired hypothyroidism- Primary Unspecified hypothyroidism Controlled type 2 diabetes mellitus without complication, without long-term current use of insulin (HCC) Hypercalcemia Vitamin D deficiency Unspecified vitamin D deficiency S/P subtotal parathyroidectomy Other postprocedural status Primary hypertension Unspecified essential hypertension Mixed hyperlipidemia Chronic fatigue Other malaise and fatigue OPHELIA on CPAP Obstructive sleep apnea (adult) (pediatric) Class 3 severe obesity due to excess calories with body mass index (BMI) of 40.0 to 44.9 in adult, unspecified whether serious comorbidity present (HCC) documented [facility] [place] [facility]* Diagnosis Controlled type 2 diabetes mellitus without complication, without long-term current use of insulin (HCC)- Primary Hypercalcemia Acquired hypothyroidism Unspecified hypothyroidism OPHELIA on CPAP Obstructive sleep apnea (adult) (pediatric) Osteopenia of spine Vitamin D deficiency Unspecified vitamin D deficiency S/P subtotal parathyroidectomy Other postprocedural status Mixed hyperlipidemia Class 3 severe obesity due to excess calories with body mass index (BMI) of 40.0 to 44.9 in adult, unspecified whether serious comorbidity present (HCC) Asymptomatic postmenopausal status documented [facility] [place] [facility]* Diagnosis Asymptomatic postmenopausal status Osteopenia of spine Vitamin D deficiency Unspecified vitamin D deficiency S/P subtotal parathyroidectomy Other postprocedural status documented [facility] [place] [facility]* Diagnosis Controlled type 2 diabetes mellitus without complication, without long-term current use of insulin (HCC)- Primary OPHELIA on CPAP Obstructive sleep apnea (adult) (pediatric) Age-related osteoporosis without current pathological fracture Senile osteoporosis Acquired hypothyroidism Unspecified hypothyroidism Hypercalcemia Vitamin D deficiency Unspecified vitamin D deficiency S/P subtotal parathyroidectomy Other postprocedural status Mild intermittent asthma without complication Unspecified asthma Essential (primary) hypertension Unspecified essential hypertension Mixed hyperlipidemia Screening for diabetic retinopathy Screening for other eye conditions Encounter for immunization Need for other specified prophylactic vaccination against single bacterial disease Bilateral leg edema Edema [facility] [place] [facility]* Diagnosis Acquired hypothyroidism Unspecified hypothyroidism documented [facility] [place] [facility]* Diagnosis Community acquired pneumonia, unspecified laterality- Primary Wheeze Wheezing [facility] [place] [facility]* Diagnosis Pneumonia of both lower lobes due to infectious organism- Primary Primary hypertension Unspecified essential hypertension Moderate persistent asthma with exacerbation Unspecified asthma, with exacerbation Bilateral leg edema Edema [facility] Diagnosis Pneumonia of both lower lobes due to infectious organism documented in this encounter [facility] note* Diagnosis DONALD (dyspnea on exertion)- Primary Other dyspnea and respiratory abnormality Mild intermittent asthma without complication (HCC) Unspecified asthma Class 3 severe obesity due to excess calories with body mass index (BMI) of 40.0 to 44.9 in adult, unspecified whether serious comorbidity present (HCC) documented in this encounter [facility] note* Diagnosis DONALD (dyspnea on exertion) Other dyspnea and respiratory abnormality Mild intermittent asthma without complication (HCC) Unspecified asthma documented in this encounter [facility] note* Diagnosis DONALD (dyspnea on exertion) Other dyspnea and respiratory abnormality Mild intermittent asthma without complication (HCC) Unspecified asthma documented in this encounter [facility] note* Diagnosis Asthma, unspecified asthma severity, unspecified whether complicated, unspecified whether persistent (HCC) documented in this encounter [facility] note* Diagnosis SOB (shortness of breath)- Primary Shortness of breath Mild persistent asthma, unspecified whether complicated (HCC) Diastolic dysfunction Heart disease, unspecified Morbid obesity (HCC) Morbid obesity Asthma, unspecified asthma severity, unspecified whether complicated, unspecified whether persistent (HCC) documented in this encounter [facility] note* Diagnosis SOB (shortness of breath) Shortness of breath documented in this encounter [facility] for referral (narrative)* Diagnostic Procedure Only (Routine) - Pending Review Specialty Diagnoses / Procedures Referred By Du t Referred To Contact [facility] IMAGING Diagnoses Abnormal mammogram Procedures US BREAST LTD RT US BREAST UNI REAL TIME WITH IMAGE LIMITED Haily Alvarez APRN.CNS [address] [place] [address] [facility] [address] [place], [place] [address] [address] Referral ID Status Reason Start Date Expiration Date Visits Requested Visits Authorized [id number] Pending Review Auto-Generat ed Referral 09/18/2021 10/18/2022 1 1 * Diagnostic Procedure Only (Routine) - Pending Review Specialty Diagnoses / Procedures Referred By Blancaac t Referred To Contact BR IMAGING Diagnoses Abnormal mammogram Procedures TAD DIAGNOSTIC RT DIAGNOSTIC MAMMOGRAPHY COMPUTER-AIDED DETCJ Haily West APRN.DIRECTOR OF BUSINESS OPERATIONS [address] [place] [address] [facility] [address] [place] [address] Referral ID Status Reason Start Date Expiration Date Visits Requested Visits Authorized [id number] Pending Review Auto-Generat ed Referral 09/18/2021 10/18/2022 1 1 [facility] for referral (narrative)* Diagnostic Procedure Only (Routine) - Closed Specialty Diagnoses / Procedures Referred By Du t Referred To Contact BR IMAGING Diagnoses Abnormal mammogram Procedures TAD DIAGNOSTIC RT DIAGNOSTIC MAMMOGRAPHY COMPUTER-AIDED DETCJ Haily West APRN.DIRECTOR OF BUSINESS OPERATIONS [address] [place] [address] [facility] [address] [place] [address] Referral ID Status Reason Start Date Expiration Date V isits Requested Visits Authorized [id number] Closed Auto-Generate d Referral 09/18/2021 10/18/2022 1 1 [facility] for referral (narrative)* Diagnostic Procedure Only (Routine) - Pending Review Specialty Diagnoses / Procedures Referred By Contac t Referred To Contact [facility] IMAG[facility] Diagnoses Breast cancer screening by mammogram Procedures TAD SCREENING W MINA SCREENING DIGITAL BREAST TOMOSYNTHESIS BI SCREENING MAMMOGRAPHY BI 2-VIEW BREAST INC Betina Alvares APRN.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 [address] [place] [address] [facility] [address] [place] [address] Referral ID Status Reason Start Date Expiration Date Visits Requested Visits Authorized [id number] Pending Review Auto-Generat ed Referral 10/27/2022 11/26/2023 1 1 [facility] for referral (narrative)* Diagnostic Procedure Only (Routine) - Pending Review Specialty Diagnoses / Procedures Referred By Blancaac t Referred To Contact [facility] IMAG[facility] Diagnoses Abnormal mammogram of right breast Procedures US BREAST LTD RIGHT US BREAST UNI REAL TIME WITH IMAGE LIMITED Haily Alvarez APRN.CNS [address] [place] [address] [facility] [address] [place] [address] Referral ID Status Reason Start Date Expiration Date Visits Requested Visits Authorized [id number] Pending Review Auto-Generat ed Referral 3 01/23/2024 1 1 * Diagnostic Procedure Only (Routine) - Pending Review Specialty Diagnoses / Procedures Referred By Du t Referred To Contact [facility] IM[facility] Diagnoses Abnormal mammogram of right breast Procedures TAD DIAGNOSTIC RIGHT DIAGNOSTIC MAMMOGRAPHY COMPUTER-AIDED DETCJ Haily West APRN.DIRECTOR OF BUSINESS OPERATIONS [address] [place] [address] [facility] [address] [place] [address] Referral ID Status Reason Start Date Expiration Date Visits Requested Visits Authorized [id number] Pending Review Auto-Generat ed Referral 3 01/23/2024 1 1 [facility] for referral (narrative)* Diagnostic Procedure Only (Routine) - Closed Specialty Diagnoses / Procedures Referred By Du t Referred To Contact [facility] IMAGING Diagnoses Abnormal mammogram of right breast Procedures TAD DIAGNOSTIC RIGHT DIAGNOSTIC MAMMOGRAPHY COMPUTER-AIDED DETCJ Haily West APRN.DIRECTOR OF BUSINESS OPERATIONS [address] [place] [address] [facility] [address] [place] [address] Referral ID Status Reason Start Date Expiration Date V isits Requested Visits Authorized [id number] Closed Auto-Generate d Referral 12/24/2022 01/23/2024 1 1 [facility] for referral (narrative)* Diagnostic Procedure Only (Routine) - Pending Review Specialty Diagnoses / Procedures Referred By Contac t Referred To Contact [facility] IM[facility] Diagnoses Abnormal mammogram of right breast Procedures TAD DIAGNOSTIC RIGHT DIAGNOSTIC MAMMOGRAPHY COMPUTER-AIDED DETCJ Haily West APRN.CNS [address] [place] [address] [facility] [address] [place] [address] Referral ID Status Reason Start Date Expiration Date Visits Requested Visits Authorized [id number] Pending Review Auto-Generat ed Referral 07/10/2023 08/08/2024 1 1 [facility] for referral (narrative)* Diagnostic Procedure Only (Routine) - Authorized Specialty Diagnoses / Procedures Referred By Contac t Referred To Contact XR IMAGING Diagnoses Asymptomatic postmenopausal status Osteopenia of spine Vitamin D deficiency S/P subtotal parathyroidectomy Procedures DXA-AXIAL SKELETON Pam Mcgill MD [address] [place] [address] [place] [address] Referral ID Status Reason Start Date Expiration Date Visits Requested Visits Authorized [id number] Authorized Auto-Generat ed Referral 10/18/2023 11/16/2024 1 1 [facility] for referral (narrative)* Diagnostic Procedure Only (Routine) - Closed Specialty Diagnoses / Procedures Referred By Contac t Referred To Contact XR IMAGING Diagnoses Asymptomatic postmenopausal status Osteopenia of spine Vitamin D deficiency S/P subtotal parathyroidectomy Procedures DXA-AXIAL SKELETON Pam Mcgill MD [address] [place] [address] [place] [address] Referral ID Status Reason Start Date Expiration Date V isits Requested Visits Authorized [id number] Closed Auto-Generate d Referral 10/18/2023 11/16/2024 1 1 [facility] for referral (narrative)No reason for referral information availableWSycam[facility] Work Phone: [facility] Narrative* Diagnostic Procedure Only (Routine) - Closed Specialty Diagnoses / Procedures Referred By Contac t Referred To Contact BR IMAGING Diagnoses Abnormal mammogram of right breast Procedures TAD DIAGNOSTIC RIGHT DIAGNOSTIC MAMMOGRAPHY COMPUTER-AIDED [facility], [employer]ING [employer] CUTTING PRESS FEEDER.DIRECTOR OF BUSINESS OPERATIONS [address] [place] [address] [facility] [address] [place] [address] Referral ID Status Reason Start Date Expiration Date V isits Requested Visits Authorized [id number] Closed Auto-Generate d Referral 12/24/2022 01/23/2024 1 1 [facility] for visit Narrative* Diagnostic Procedure Only (Routine) - Closed Specialty Diagnoses / Procedures Referred By Contac t Referred To Contact [facility] IMAGING Diagnoses Abnormal mammogram of right breast Procedures TAD DIAGNOSTIC RIGHT DIAGNOSTIC MAMMOGRAPHY COMPUTER-AIDED DETCJ [facility] Haily, [employer]ING [employer] CUTTING PRESS FEEDER.DIRECTOR OF BUSINESS OPERATIONS [address] [place] [address] [facility] [address] [place] [address] Referral ID Status Reason Start Date Expiration Date V isits Requested Visits Authorized [id number] Closed Auto-Generate d Referral 01/06/2023 02/05/2024 1 1 [facility] for visit Narrative* Diagnostic Procedure Only (Routine) - Closed Specialty Diagnoses / Procedures Referred By Contalonso t Referred To Contact XR IMAGING Diagnoses Asymptomatic postmenopausal status Osteopenia of spine Vitamin D deficiency S/P subtotal parathyroidectomy Procedures DXA-AXIAL SKELETON Pam Mcgill MD [address] [place] [address] [place] [address] Referral ID Status Reason Start Date Expiration Date V isits Requested Visits Authorized [id number] Closed Auto-Generate d Referral 10/18/2023 11/16/2024 1 1 [facility] Summary Purpose Family History Relationship Condition Age at Onset Recorded Date/T nehemiah Not Specified Family history of hypertension Unknown father Malignant neoplasm of colon Unknown mother Coronary artery disease Unknown Hypertension Unknown brother Coronary artery disease Unknown brother Hypertension Unknown Diabetes mellitus Unknown Advance Directives Documents on File Type Date Recorded Patient Toe Lining Closer Expl anation Advance Directive(s) 05/22/2015 9:41 AM Advance Directive(s) 05/15/2015 6:02 PM Advance Directive(s) 02/12/2010 1:33 PM Documents on File Type Date Recorded Patient Toe Lining Closer Expl anation Advance Directive(s) 02/12/2010 1:33 PM Documents on File Type Date Recorded Patient Toe Lining Closer Expl anation Advance Directive(s) 02/12/2010 1:33 PM Advance Directive Response Recorded Date/ Time Living Will Yes May 23, 2020 2:13pm Power of Paradichlorobenzene Machine Operator Yes May 23 2:13pm Advance Directive Response Recorded Date/ Time Living Will Yes May 23, 2020 3:13pm Power of Paradichlorobenzene Machine Operator Yes May 23 3:13pm Advance Directive Response Recorded Date/ Time Living Will Yes May 23, 2020 3:13pm Do you have a Healthcare Power of Paradichlorobenzene Machine Operator? Yes May 23, 2020 3:13pm Advance Directive Response Recorded Date/ Time Living Will Yes May 23, 2020 3:13pm Do you have a Healthcare Power of Paradichlorobenzene Machine Operator? Yes May 23, 2020 3:13pm Do you have a Healthcare Power of Paradichlorobenzene Machine Operator? Yes August 01, 2024 9:11am Advance Directive Response Recorded Date/ Time Living Will Yes May 23, 2020 3:13pm Do you have a Healthcare Power of Paradichlorobenzene Machine Operator? Yes May 23, 2020 3:13pm Do you have a Healthcare Power of Paradichlorobenzene Machine Operator? Yes August 01, 2024 1:36pm Advance Directive Response Recorded Date/ Time Do you have a Healthcare Power of Paradichlorobenzene Machine Operator? Yes August 01, 2024 1:36pm Advance Directive Response Recorded Date/ Time Do you have a Healthcare Power of Paradichlorobenzene Machine Operator? Yes September 05, 2024 4:11pm Do you have a Healthcare Power of Paradichlorobenzene Machine Operator? Yes August 01, 2024 1:36pm Reason for Referral Specialty Diagnoses / Procedures Referred By Contac t Referred To Contact BR IMAGING Diagnoses Breast cancer screening by mammogram Procedures TAD SCREENING SCREENING MAMMOGRAPHY BI 2-VIEW BREAST INC CAD Pam Mcgill MD [address] [place] [address] [facility] [address] [place] [address] Referral ID Status Reason Start Date Expiration Date V isits Requested Visits Authorized [id number] Closed Auto-Generate d Referral 07/17/2021 10/15/2021 3 1 Referral ID Status Reason Start Date Expiration Date V isits Requested Visits Authorized [id number] Closed Auto-Generate d Referral 10/20/2022 01/18/2023 3 1 Chief Complaint and Reason for Visit Chief Complaint 1 Y FU 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 Reason for Visit Essential hypertensi on H/O aortic valve replacement Hyperlipidemia Chief Complaint 1 Y FU Presence of prosthetic heart valve Amb Documentation Reason for Visit Essential hypertensi on H/O aortic valve replacement Hyperlipidemia Chief Complaint 1 Y FU Presence of prosthetic heart valve Amb Documentation E ORDERS Reason for Visit Essential hypertensi on H/O aortic valve replacement Hyperlipidemia Chief Complaint Admit Date 1 Y FU April 17, 2024 9:43am PROSTHETIC HEART VALVE May 23, 2024 8:46am Reason for Visit Admit Date Essential hypertension April 17 9:43am H/O aortic valve replacement April 172024 9:43am Hyperlipidemia April 17, 2024 9:43am Chief Complaint Admit Date 1 Y FU April 17, 2024 9:43am PROSTHETIC HEART VALVE May 23, 2024 8:46am SOB (Alvarez) July 05, 2024 12:51p m EORDER July 05, 2024 1:52pm Reason for Visit Admit Date Essential hypertension April 17 9:43am H/O aortic valve replacement April 172024 9:43am Hyperlipidemia April 17, 2024 9:43am Shortness of breath July 05, 2024 12:51p m Essential hypertension July 05, 2024 12: 51pm H/O aortic valve replacement July 05 12:51pm Hyperlipidemia July 05, 2024 12:51p m Chief Complaint Admit Date 1 Y FU April 17, 2024 9:43am PROSTHETIC HEART VALVE May 23, 2024 8:46am SOB (Alvarez) July 05, 2024 12:51p m EORDER July 05, 2024 1:52pm 1 WK FU PER MMM July 13, 2024 8:55am Reason for Visit Admit Date Essential hypertension April 17 9:43am H/O aortic valve replacement April 172024 9:43am Hyperlipidemia April 17, 2024 9:43am Shortness of breath July 05, 2024 12:51p m Essential hypertension July 05, 2024 12: 51pm H/O aortic valve replacement July 05 12:51pm Hyperlipidemia July 05, 2024 12:51p m Shortness of breath July 13, 2024 8:55am Essential hypertension July 13, 2024 8:5 5am H/O aortic valve replacement July 13 8:55am Hyperlipidemia July 13, 2024 8:55am Chief Complaint Admit Date 1 Y FU April 17, 2024 9:43am PROSTHETIC HEART VALVE May 23, 2024 8:46am SOB (Alvarez) July 05, 2024 12:51p m EORDER July 05, 2024 1:52pm 1 WK FU PER MMM July 13, 2024 8:55am CHF August 01, 2024 11:59 am Chief Complaint Admit Date 1 Y FU April 17, 2024 9:43am PROSTHETIC HEART VALVE May 23, 2024 8:46am SOB (Alvarez) July 05, 2024 12:51p m EORDER July 05, 2024 1:52pm 1 WK FU PER MMM July 13, 2024 8:55am CHF August 01, 2024 11:59 am Congestive heart failure August 02, 2024 8:52am Congestive heart failure August 03, 2024 8:50am Reason for Visit Admit Date Essential hypertension April 17 9:43am H/O aortic valve replacement April 172024 9:43am Hyperlipidemia April 17, 2024 9:43am Shortness of breath July 05, 2024 12:51p m Essential hypertension July 05, 2024 12: 51pm H/O aortic valve replacement July 05 12:51pm Hyperlipidemia July 05, 2024 12:51p m Shortness of breath July 13, 2024 8:55am Essential hypertension July 13, 2024 8:5 5am H/O aortic valve replacement July 13 8:55am Hyperlipidemia July 13, 2024 8:55am Shortness of breath August 01, 2024 11:59 am Chief Complaint Admit Date PROSTHETIC HEART VALVE May 23, 2024 8:46am SOB (Alvarez) July 05, 2024 12:51p m EORDER July 05, 2024 1:52pm 1 WK FU PER MMM July 13, 2024 8:55am CHF August 01, 2024 11:59 am Congestive heart failure August 02, 2024 8:52am Congestive heart failure August 03, 2024 8:50am Reason for Visit Admit Date Essential hypertension July 05, 2024 12: 51pm H/O aortic valve replacement July 05 12:51pm Hyperlipidemia July 05, 2024 12:51p m Shortness of breath July 05, 2024 12:51p m Essential hypertension July 13, 2024 8:5 5am H/O aortic valve replacement July 13 8:55am Hyperlipidemia July 13, 2024 8:55am Shortness of breath August 01, 2024 11:59 am Chief Complaint Admit Date PROSTHETIC HEART VALVE May 23, 2024 8:46am SOB (Alvarez) July 05, 2024 12:51p m EORDER July 05, 2024 1:52pm 1 WK FU PER MMM July 13, 2024 8:55am CHF August 01, 2024 11:59 am Congestive heart failure August 02, 2024 8:52am Congestive heart failure August 03, 2024 8:50am SEVERE HYPERKALEMIA September 05, 2024 5:55p m Reason for Visit Admit Date Essential hypertension July 05, 2024 12: 51pm H/O aortic valve replacement July 05 12:51pm Hyperlipidemia July 05, 2024 12:51p m Shortness of breath July 05, 2024 12:51p m Essential hypertension July 13, 2024 8:5 5am H/O aortic valve replacement July 13 8:55am Hyperlipidemia July 13, 2024 8:55am Shortness of breath August 01, 2024 11:59 am Acute hyperkalemia September 05, 2024 5:55p m Acute hyponatremia September 05, 2024 5:55p m Acute hypotension September 05, 2024 5:55p m Acute kidney injury September 05, 2024 5:55p m Acute prerenal azotemia September 05, 2024 5 :55pm First degree heart block September 05, 2024 5:55pm Hypercalcemia September 05, 2024 5:55p m Right bundle branch block September 05, 2024 5:55pm Syncope and collapse September 05, 2024 5:55 pm Atherosclerosis of coronary artery of [place] heart without angina pectoris September 05, 2024 5:55pm Essential hypertension September 05, 2024 5: 55pm H/O aortic valve replacement September 05 5:55pm Hyperlipidemia September 05, 2024 5:55p m Additional Source Comments INFORMATION SOURCE (unrecogn ized section and content) DATE CREATED AUTHOR 01/05/2018 [facility] DATE CREATED AUTHOR AUTHOR'S ORGANIZ ATION 04/11/2019 [facility] [place] [facility] DATE CREATED AUTHOR AUTHOR'S ORGANIZ ATION 08/19/2024 [facility] DATE CREATED AUTHOR AUTHOR'S ORGANIZ ATION 08/26/2024 [facility] Source Comments (unrecognize d section and content) In the event this informatio n is protected by the Federal Confidentiality of Alcohol and Drug Abuse Patient Records regulations: The Federal rules restrict any use of the information to criminally investigate or prosecute any alcohol or drug abuse patient.[facility] the event this information is protected by the Federal Confidentiality of Alcohol and Drug Abuse Patient Records regulations: The Federal rules restrict any use of the information to criminally investigate or prosecute any alcohol or drug abuse patient.[facility] the event this information is protected by the Federal Confidentiality of Alcohol and Drug Abuse Patient Records regulations: The Federal rules restrict any use of the information to criminally investigate or prosecute any alcohol or drug abuse patient.[facility]In the event this information is protected by the Federal Confidentiality of Alcohol and Drug Abuse Patient Records regulations: The Federal rules restrict any use of the information to criminally investigate or prosecute any alcohol or drug abuse patient.[facility]In the event this information is protected by the Federal Confidentiality of Alcohol and Drug Abuse Patient Records regulations: The Federal rules restrict any use of the information to criminally investigate or prosecute any alcohol or drug abuse patient.[facility]In the event this information is protected by the Federal Confidentiality of Alcohol and Drug Abuse Patient Records regulations: The Federal rules restrict any use of the information to criminally investigate or prosecute any alcohol or drug abuse patient.[facility]In the event this information is protected by the Federal Confidentiality of Alcohol and Drug Abuse Patient Records regulations: The Federal rules restrict any use of the information to criminally investigate or prosecute any alcohol or drug abuse patient.[facility] ColumbusIn the event this information is protected by the Federal Confidentiality of Alcohol and Drug Abuse Patient Records regulations: The Federal rules restrict any use of the information to criminally investigate or prosecute any alcohol or drug abuse patient.[facility]In the event this information is protected by the Federal Confidentiality of Alcohol and Drug Abuse Patient Records regulations: The Federal rules restrict any use of the information to criminally investigate or prosecute any alcohol or drug abuse patient.[facility] ColumbusIn the event this information is protected by the Federal Confidentiality of Alcohol and Drug Abuse Patient Records regulations: The Federal rules restrict any use of the information to criminally investigate or prosecute any alcohol or drug abuse patient.[facility] ColumbusIn the event this information is protected by the Federal Confidentiality of Alcohol and Drug Abuse Patient Records regulations: The Federal rules restrict any use of the information to criminally investigate or prosecute any alcohol or drug abuse patient.[facility]In the event this information is protected by the Federal Confidentiality of Alcohol and Drug Abuse Patient Records regulations: The Federal rules restrict any use of the information to criminally investigate or prosecute any alcohol or drug abuse patient.[facility] ColumbusIn the event this information is protected by the Federal Confidentiality of Alcohol and Drug Abuse Patient Records regulations: The Federal rules restrict any use of the information to criminally investigate or prosecute any alcohol or drug abuse patient.[facility]In the event this information is protected by the Federal Confidentiality of Alcohol and Drug Abuse Patient Records regulations: The Federal rules restrict any use of the information to criminally investigate or prosecute any alcohol or drug abuse patient.[facility] ColumbusIn the event this information is protected by the Federal Confidentiality of Alcohol and Drug Abuse Patient Records regulations: The Federal rules restrict any use of the information to criminally investigate or prosecute any alcohol or drug abuse patient.[facility] ColumbusIn the event this information is protected by the Federal Confidentiality of Alcohol and Drug Abuse Patient Records regulations: The Federal rules restrict any use of the information to criminally investigate or prosecute any alcohol or drug abuse patient.[facility] ColumbusIn the event this information is protected by the Federal Confidentiality of Alcohol and Drug Abuse Patient Records regulations: The Federal rules restrict any use of the information to criminally investigate or prosecute any alcohol or drug abuse patient.[facility] ColumbusIn the event this information is protected by the Federal Confidentiality of Alcohol and Drug Abuse Patient Records regulations: The Federal rules restrict any use of the information to criminally investigate or prosecute any alcohol or drug abuse patient.[facility] ColumbusIn the event this information is protected by the Federal Confidentiality of Alcohol and Drug Abuse Patient Records regulations: The Federal rules restrict any use of the information to criminally investigate or prosecute any alcohol or drug abuse patient.[facility] ColumbusIn the event this information is protected by the Federal Confidentiality of Alcohol and Drug Abuse Patient Records regulations: The Federal rules restrict any use of the information to criminally investigate or prosecute any alcohol or drug abuse patient.[facility] ColumbusIn the event this information is protected by the Federal Confidentiality of Alcohol and Drug Abuse Patient Records regulations: The Federal rules restrict any use of the information to criminally investigate or prosecute any alcohol or drug abuse patient.[facility] ColumbusIn the event this information is protected by the Federal Confidentiality of Alcohol and Drug Abuse Patient Records regulations: The Federal rules restrict any use of the information to criminally investigate or prosecute any alcohol or drug abuse patient.[facility] ColumbusIn the event this information is protected by the Federal Confidentiality of Alcohol and Drug Abuse Patient Records regulations: The Federal rules restrict any use of the information to criminally investigate or prosecute any alcohol or drug abuse patient.[facility] ColumbusIn the event this information is protected by the Federal Confidentiality of Alcohol and Drug Abuse Patient Records regulations: The Federal rules restrict any use of the information to criminally investigate or prosecute any alcohol or drug abuse patient.[facility] ColumbusIn the event this information is protected by the Federal Confidentiality of Alcohol and Drug Abuse Patient Records regulations: The Federal rules restrict any use of the information to criminally investigate or prosecute any alcohol or drug abuse patient.[facility] ColumbusIn the event this information is protected by the Federal Confidentiality of Alcohol and Drug Abuse Patient Records regulations: The Federal rules restrict any use of the information to criminally investigate or prosecute any alcohol or drug abuse patient.[facility] ColumbusIn the event this information is protected by the Federal Confidentiality of Alcohol and Drug Abuse Patient Records regulations: The Federal rules restrict any use of the information to criminally investigate or prosecute any alcohol or drug abuse patient.[facility] ColumbusIn the event this information is protected by the Federal Confidentiality of Alcohol and Drug Abuse Patient Records regulations: The Federal rules restrict any use of the information to criminally investigate or prosecute any alcohol or drug abuse patient.[facility] ColumbusIn the event this information is protected by the Federal Confidentiality of Alcohol and Drug Abuse Patient Records regulations: The Federal rules restrict any use of the information to criminally investigate or prosecute any alcohol or drug abuse patient.[facility] ColumbusIn the event this information is protected by the Federal Confidentiality of Alcohol and Drug Abuse Patient Records regulations: The Federal rules restrict any use of the information to criminally investigate or prosecute any alcohol or drug abuse patient.[facility] ColumbusIn the event this information is protected by the Federal Confidentiality of Alcohol and Drug Abuse Patient Records regulations: The Federal rules restrict any use of the information to criminally investigate or prosecute any alcohol or drug abuse patient.[facility] ColumbusIn the event this information is protected by the Federal Confidentiality of Alcohol and Drug Abuse Patient Records regulations: The Federal rules restrict any use of the information to criminally investigate or prosecute any alcohol or drug abuse patient.[facility] ColumbusIn the event this information is protected by the Federal Confidentiality of Alcohol and Drug Abuse Patient Records regulations: The Federal rules restrict any use of the information to criminally investigate or prosecute any alcohol or drug abuse patient.[facility]In the event this information is protected by the Federal Confidentiality of Alcohol and Drug Abuse Patient Records regulations: The Federal rules restrict any use of the information to criminally investigate or prosecute any alcohol or drug abuse patient.[facility] ColumbusIn the event this information is protected by the Federal Confidentiality of Alcohol and Drug Abuse Patient Records regulations: The Federal rules restrict any use of the information to criminally investigate or prosecute any alcohol or drug abuse patient.[facility] ColumbusIn the event this information is protected by the Federal Confidentiality of Alcohol and Drug Abuse Patient Records regulations: The Federal rules restrict any use of the information to criminally investigate or prosecute any alcohol or drug abuse patient.[facility] ColumbusIn the event this information is protected by the Federal Confidentiality of Alcohol and Drug Abuse Patient Records regulations: The Federal rules restrict any use of the information to criminally investigate or prosecute any alcohol or drug abuse patient.[facility] Reason for Visit (unrecogniz ed section and content) Specialty Diagnoses / Procedures Referred By Contac t Referred To Contact [facility] Diagnoses Breast cancer screening by mammogram Procedures TAD SCREENING SCREENING MAMMOGRAPHY BI 2-VIEW BREAST INC CAD Pam Mcgill MD [address] [place] [address] [facility] [address] [place] [address] Referral ID Status Reason Start Date Expiration Date V isits Requested Visits Authorized [id number] Closed Auto-Generate d Referral 07/17/2021 10/15/2021 3 1 Reason Onset Date Comments Follow Up Breast Problem 07/17/2021 [facility] Reason Comments Radiology Mammogram Specialty Diagnoses / Procedures Referred By Contac t Referred To Contact [facility] Diagnoses Abnormal mammogram Procedures TAD DIAGNOSTIC RT DIAGNOSTIC MAMMOGRAPHY COMPUTER-AIDED DETCJ UNI AlvarezHaily, CREASING AND CUTTING PRESS FEEDER.DIRECTOR OF BUSINESS OPERATIONS [address] [place] [address] [facility] [address] [place] [id number] Referral ID Status Reason Start Date Expiration Date V isits Requested Visits Authorized [id number] Closed Auto-Generate d Referral 09/18/2021 10/18/2022 1 1 Reason Comments Follow Up Reason Comments Nasal Congestion Pt reported x 2.5 wk s. Reason Comments 4 months follow up Referral ID Status Reason Start Date Expiration Date V isits Requested Visits Authorized [id number] Closed Auto-Generate d Referral 10/20/2022 01/18/2023 3 1 Reason Comments Follow Up 4 month follow up Reason Comments F/U 4 month Labs prior Reason Comments Follow up 4 month Reason Comments Cough Cough and SOB x 3-4 weeks Reason Comments Follow Up For Express Care visit -Pneumonia & SOB Reason Comments Results Reason Comments Spirometry Specialty Diagnoses / Procedures Referred By Contac t Referred To [facility] Diagnoses DONALD (dyspnea on exertion) Mild intermittent asthma without complication (HCC) Procedures LUNG VOLUMES Pam Mcgill MD [address] [place] [address] Phone: tel: fax: [facility] [address] [address] Referral ID Status Reason Start Date Expiration Date V isits Requested Visits Authorized [id number] Closed Auto-Generate d Referral 06/19/2024 03/06/2025 1 1 Specialty Diagnoses / Procedures Referred By Contac t Referred To Contact [facility] Diagnoses DONALD (dyspnea on exertion) Mild intermittent asthma without complication (HCC) Procedures SPIROMETRY - BASELINE AND POST DILATOR BRNCDILAT RSPSE SPMTRY PRE&POST-BRNCDILAT ADMN Pam Mcgill MD [address] [place] [address] Phone: tel: fax: [address] [address] Referral ID Status Reason Start Date Expiration Date V isits Requested Visits Authorized [id number] Closed Auto-Generate d Referral 06/19/2024 07/19/2025 1 1 Specialty Diagnoses / Procedures Referred By Contac t Referred To [facility] Diagnoses DONALD (dyspnea on exertion) Mild intermittent asthma without complication (HCC) Procedures LUNG DIFFUSION CAPACITY (DLCO) DIFFUSING CAPACITY Pam Mcgill MD [facility] [place] [address] Phone: tel: fax: [facility] [address] [address] Referral ID Status Reason Start Date Expiration Date V isits Requested Visits Authorized [id number] Closed Auto-Generate d Referral 06/19/2024 07/19/2025 1 1 Specialty Diagnoses / Procedures Referred By Contac t Referred To [facility] Diagnoses Asthma, unspecified asthma severity, unspecified whether complicated, unspecified whether persistent (HCC) Procedures NITRIC OXIDE, EXHALED NITRIC OXIDE GAS DETERMINATION Mariya Mcadams MD [address] [place] [address] Phone: tel: fax: [facility] [place] [address] [place] [phone] Referral ID Status Reason Start Date Expiration Date V isits Requested Visits Authorized [id number] Closed Auto-Generate d Referral 07/19/2024 03/06/2025 1 1 Reason Comments Consult SOB Reason Comments Medication Problem Reason Comments Results Reason Comments Patient Question does patient need ox ygen for bedtime? Care Teams (unrecognized sec tion and content) Shoe Planner Relationship Specialty Start Date End Date Pam Mcgill MD [address] [place] [address] PCP - General 12/18/01 Shoe Planner Relationship Specialty Start Date End Date Pam Mcgill MD [address] [place] [id number] PCP - General 12/18/01 Shoe Planner Relationship Specialty Start Date End Date Pam Mcgill MD [address] [place] [address] PCP - General 12/18/01 Shoe Planner Relationship Specialty Start Date End Date Pam Mcgill MD [address] [place] [address] PCP - General 12/18/01 Shoe Planner Relationship Specialty Start Date End Date Pam Mcgill MD [address] [place] [address] PCP - General 12/18/01 Shoe Planner Relationship Specialty Start Date End Date Pam Mcgill MD [address] [place] [address] PCP - General 12/18/01 Team Status: Active Member Role Status Dates Dr. Pam Mcgill MD Family Provider Active Dr. Pam Mcgill MD Primary Care Provider Active Team Status: Inactive Member Role Status Dates Dr. Pam Mcgill MD Primary Care Provider, Referr ing Provider Active Dr. Reggie Olguin MD Attending Provider Active Team Status: Active Member Role Status Dates Dr. Pam Mcgill MD Primary Care Provider Active Dr. Reggie Olguin MD Attending Provider Active Team Status: Inactive Member Role Status Dates Dr. Pam Mcgill MD Primary Care Provider Active Dr. Reggie Olguin MD Attending Provider, Referring Pro vider Active Shoe Planner Relationship Specialty Start Date End Date Pam Mcgill MD [address] [place] [address] PCP - General 12/18/01 Shoe Planner Relationship Specialty Start Date End Date Pam Mcgill MD [address] [place] [address] PCP - General 12/18/01 Shoe Planner Relationship Specialty Start Date End Date Pam Mcgill MD [address] [place] [address] PCP - General 12/18/01 Shoe Planner Relationship Specialty Start Date End Date Pam Mcgill MD [address] [place] [address] PCP - General 12/18/01 Shoe Planner Relationship Specialty Start Date End Date Pam Mcgill MD [address] [place] [address] PCP - General 12/18/01 Shoe Planner Relationship Specialty Start Date End Date Pam Mcgill MD [address] [place] [address] PCP - General 12/18/01 Shoe Planner Relationship Specialty Start Date End Date Pam Mcgill MD [address] [place] [address] PCP - General 12/18/01 Team Status: Inactive Member Role Status Dates Dr. Pam Mcgill MD Primary Care Provider, Referr ing Provider Active Ginette Oquendo EQUINE DENTIST, EQUINE DENTIST-C Attending Provider Active Team Status: Active Member Role Status Dates Dr. Pam Mcgill MD Primary Care Provider Active Ginette Oquendo EQUINE DENTIST, EQUINE DENTIST-C Attending Provider Active Team Status: Inactive Member Role Status Dates Dr. Pam Mcgill MD Primary Care Provider Active Ginette Oquendo EQUINE DENTIST, EQUINE DENTIST-C Attending Provider, Referring P almita Active Shoe Planner Relationship Specialty Start Date End Date Pam Mcgill MD [address] [place] [address] PCP - General 12/18/01 Shoe Planner Relationship Specialty Start Date End Date Pam Mcgill MD [address] [place] [address] PCP - General 12/18/01 Shoe Planner Relationship Specialty Start Date End Date Pam Mcgill MD [address] [place] [address] PCP - General 12/18/01 Shoe Planner Relationship Specialty Start Date End Date Pam Mcgill MD [address] [place] [address] PCP - General 12/18/01 Shoe Planner Relationship Specialty Start Date End Date Pam Mcgill MD [address] [facility] [place] [address] PCP - General 12/18/01 Shoe Planner Relationship Specialty Start Date End Date Pam Mcgill MD [address] [place] [address] PCP - General 12/18/01 Haily Alvarez, MARCELINA.DIRECTOR OF BUSINESS OPERATIONS [address] [place] [address] Corporate Development Intern Internal Medicine 02/13/24 Betina Bullard APRN.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 [address] [place] [address] Corporate Development Intern Internal Medicine 02/13/24 Shoe Planner Relationship Specialty Start Date End Date Pam Mcgill MD [address] [place] [address] PCP - General 12/18/01 Haily Alvarez, CREASING AND CUTTING PRESS FEEDER.DIRECTOR OF BUSINESS OPERATIONS [address] [place] [address] Corporate Development Intern Internal Medicine 02/13/24 Betina Bullard CREASING AND CUTTING PRESS FEEDER.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 [address] [place] [id number] Corporate Development Intern Internal Medicine 02/13/24 Shoe Planner Relationship Specialty Start Date End Date aPm Mcgill MD [address] [place] [address] PCP - General 12/18/01 Haily Alvarez, CREASING AND CUTTING PRESS FEEDER.DIRECTOR OF BUSINESS OPERATIONS [address] [place] [address] [facility] Internal Medicine 02/13/24 Shoe Planner Relationship Specialty Start Date End Date Pam Mcgill MD [address] [place] [address] PCP - General 12/18/01 Haily Alvarez, CREASING AND CUTTING PRESS FEEDER.DIRECTOR OF BUSINESS OPERATIONS [address] [place], [place] [id number] Corporate Development Intern Internal Medicine 02/13/24 Shoe Planner Relationship Specialty Start Date End Date Pam Mcgill MD [address] [place], [place] [id number] PCP - General 12/18/01 Haily Alvarez APRN.DIRECTOR OF BUSINESS OPERATIONS [address] [place], [place] [address] Corporate Development Intern Internal Medicine 02/13/24 Betina Bullard APRN.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 [address] [place], [place] [id number] [facility] Internal Medicine 05/29/24 Team Status: Active Member Role Status Dates Dr. Pam Mcgill MD Primary Care Provider Active Team Status: Inactive Member Role Status Dates Dr. Pam Mcgill MD Primary Care Provider Active Start: April 17, 2024 End: April 17, 2024 Dr. Pam Mcgill MD Referring Provider Active Start: April 17, 2024 End: April 17, 2024 Dr. Reggie Olguin MD Attending Provider Active S tart: April 17, 2024 End: April 17, 2024 Team Status: Inactive Member Role Status Dates Dr. Pam Mcgill MD Primary Care Provider Active Start: May 23, 2024 End: May 23, 2024 Dr. Reggie Olguin MD Attending Provider Active S tart: May 23, 2024 End: May 23, 2024 Dr. Reggie Olguin MD Referring Provider Active S tart: May 23, 2024 End: May 23, 2024 Team Status: Active Member Role Status Dates Dr. Pam Mcgill MD Primary Care Provider Active Start: May 23, 2024 Dr. Reggie Olguin MD Attending Provider Active S tart: May 23, 2024 Shoe Planner Relationship Specialty Start Date End Date Pam Mcgill MD [address] [place] [address] PCP - General 12/18/01 Haily Alvarez, MARCELINA.DIRECTOR OF BUSINESS OPERATIONS [address] [place] [address] Corporate Development Intern Internal Medicine 02/13/24 Betina Bullard CREASING AND CUTTING PRESS FEEDER.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 [address] [place] [address] Corporate Development Intern Internal Medicine 05/29/24 Shoe Planner Relationship Specialty Start Date End Date Pam Mcigll MD [address] [place] [address] PCP - General 12/18/01 Haily Alvarez CREASING AND CUTTING PRESS FEEDER.DIRECTOR OF BUSINESS OPERATIONS [address] [place] [place] [address] Corporate Development Intern Internal Medicine 02/13/24 Betina Bullard APRN.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 [address] [place] [address] Corporate Development Intern Internal Medicine 05/29/24 Shoe Planner Relationship Specialty Start Date End Date Pam Mcgill MD [address] [place] [place] [address] PCP - General 12/18/01 Haily Alvarez CREASING AND CUTTING PRESS FEEDER.DIRECTOR OF BUSINESS OPERATIONS [address] [place] [address] Corporate Development Intern Internal Medicine 02/13/24 Betina Bullard CREASING AND CUTTING PRESS FEEDER.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 [address] [facility] [place] [address] Corporate Development Intern Internal Medicine 05/29/24 Shoe Planner Relationship Specialty Start Date End Date Pam Mcgill MD [address] [facility] [place], [place] [address] PCP - General 12/18/01 Haily Alvarez, CREASING AND CUTTING PRESS FEEDER.DIRECTOR OF BUSINESS OPERATIONS [address] [facility] [place], [place] [address] [facility] Internal Medicine 02/13/24 Betina Bullard CREASING AND CUTTING PRESS FEEDER.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 [address] [facility] [place], [place] [address] [facility] Internal Medicine 05/29/24 Team Status: Inactive Member Role Status Dates Dr. Pam Mcgill MD Primary Care Provider Active Start: July 05, 2024 End: July 05, 2024 Dr. Pam Mcgill MD Referring Provider Active Start: July 05, 2024 End: July 05, 2024 Dana DE LOS SANTOS PA Attending Provider Active Start: July 05, 2024 End: July 05, 2024 Team Status: Inactive Member Role Status Dates Dr. Pam Mcgill MD Primary Care Provider Active Start: July 05, 2024 End: July 05, 2024 Dana DE LOS SANTOS, PA Attending Provider Active Start: July 05, 2024 End: July 05, 2024 Dana DE LOS SANTOS, PA Referring Provider Active Start: July 05, 2024 End: July 05, 2024 Shoe Planner Relationship Specialty Start Date End Date Pam Mcgill MD [address] [facility] [place], [place] [id number] PCP - General 12/18/01 Haily Alvarez, CREASING AND CUTTING PRESS FEEDER.DIRECTOR OF BUSINESS OPERATIONS [address] [facility] [place], [place] [id number] [facility] Internal Medicine 02/13/24 Betina Bullard CREASING AND CUTTING PRESS FEEDER.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 [address] [place] [address] Corporate Development Intern Internal Medicine 05/29/24 Team Status: Inactive Member Role Status Dates Dr. Pam Mcgill MD Primary Care Provider Active Start: July 13, 2024 End: July 13, 2024 Dana DE LOS SANTOS PA Attending Provider Active Start: July 13, 2024 End: July 13, 2024 Dana DE LOS SANTOS PA Referring Provider Active Start: July 13, 2024 End: July 13, 2024 Team Status: Inactive Member Role Status Dates Dr. Pam Mcgill MD Primary Care Provider Active Start: July 13, 2024 End: July 13, 2024 Dr. Pam Mcgill MD Referring Provider Active Start: July 13, 2024 End: July 13, 2024 Dana DE LOS SANTOS PA Attending Provider Active Start: July 13, 2024 End: July 13, 2024 Shoe Planner Relationship Specialty Start Date End Date Pam Mcgill MD [address] [place] [address] PCP - General 12/18/01 Haily Alvarez, CREASING AND CUTTING PRESS FEEDER.DIRECTOR OF BUSINESS OPERATIONS [address] [place] [address] Corporate Development Intern Internal Medicine 02/13/24 Betina Bullard CREASING AND CUTTING PRESS FEEDER.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 [address] [place] [address] Corporate Development Intern Internal Medicine 05/29/24 Shoe Planner Relationship Specialty Start Date End Date Pam Mcgill MD [address] [place] [address] PCP - General 12/18/01 Haily Alvarez, CREASING AND CUTTING PRESS FEEDER.DIRECTOR OF BUSINESS OPERATIONS [address] [place] [address] Corporate Development Intern Internal Medicine 02/13/24 Betina Bullard, CREASING AND CUTTING PRESS FEEDER.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 [address] [facility] [place] [address] Corporate Development Intern Internal Medicine 05/29/24 Team Status: Active Member Role Status Dates Dr. Pam Mcgill MD Primary Care Provider Active Start: August 01, 2024 Dr. Alexis Richardson , DO Emergency Provider Activ e Start: August 01, 2024 Dr. Nahun Diaz MD Admit Provider Active Star t: August 01, 2024 Dr. Nahun Diaz MD Attending Provider Active Start: August 01, 2024 Shoe Planner Relationship Specialty Start Date End Date Pam Mcgill MD [address] [place] [address] PCP - General 12/18/01 Betina Bullard CREASING AND CUTTING PRESS FEEDER.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 [address] [place] [address] Corporate Development Intern Internal Medicine 05/29/24 Haily Alvarez, CREASING AND CUTTING PRESS FEEDER.DIRECTOR OF BUSINESS OPERATIONS [address] [place] [address] Corporate Development Intern Internal Medicine 07/25/24 Team Status: Inactive Member Role Status Dates Dr. Pam Mcgill MD Primary Care Provider Active Start: August 01, 2024 End: August 03, 2024 Dr. Alexis Richardson , DO Emergency Provider Activ e Start: August 01, 2024 End: August 03, 2024 Dr. Nahun Diaz MD Admit Provider Active Star t: August 01, 2024 End: August 03, 2024 Dr. Nahun Diaz MD Attending Provider Active Start: August 01, 2024 End: August 03, 2024 Dr. Nahun Diaz MD Other Provider Active Star t: August 01, 2024 Team Status: Active Member Role Status Dates Dr. Pam Mcgill MD Primary Care Provider Active Start: August 01, 2024 Dr. Michael Martinez MD Attending Provider Active Start: August 01, 2024 Team Status: Active Member Role Status Dates Dr. Pam Mcgill MD Primary Care Provider Active Start: August 02, 2024 Dr. Alexis Richardson DO Emergency Provider Activ e Start: August 02, 2024 Dr. Nahun Diaz MD Admit Provider Active Star t: August 02, 2024 Dr. Nahun Diaz MD Attending Provider Active Start: August 02, 2024 Dr. Nahun Diaz MD Other Provider Active Star t: August 02, 2024 Team Status: Active Member Role Status Dates Dr. Pam Mcgill MD Primary Care Provider Active Start: August 03, 2024 Dr. Alexis Richardson , DO Emergency Provider Activ e Start: August 03, 2024 Dr. Nahun Diaz MD Admit Provider Active Star t: August 03, 2024 Dr. Nahun Diaz MD Attending Provider Active Start: August 03, 2024 Dr. Nahun Diaz MD Other Provider Active Star t: August 03, 2024 Team Status: Inactive Member Role Status Dates Dr. Pam Mcgill MD Primary Care Provider Active Start: August 10, 2024 End: August 10, 2024 Dr. Nahun Diaz MD Attending Provider Active Start: August 10, 2024 End: August 10, 2024 Dr. Nahun Diaz MD Referring Provider Active Start: August 10, 2024 End: August 10, 2024 Team Status: Active Member Role/Relationship Status Dates Dr. Pam Mcgill MD Primary Care Provider Active Team Status: Inactive Member Role/Relationship Status Dates Dr. Pam Mcgill MD Primary Care Provider Active Start: May 23, 2024 End: May 23, 2024 Dr. Reggie Olguin MD Attending Provider Active S tart: May 23, 2024 End: May 23, 2024 Dr. Reggie Olguin MD Referring Provider Active S tart: May 23, 2024 End: May 23, 2024 Team Status: Active Member Role/Relationship Status Dates Dr. Pam Mcgill MD Primary Care Provider Active Start: May 23, 2024 Dr. Reggie Olguin MD Attending Provider Active S tart: May 23, 2024 Team Status: Inactive Member Role/Relationship Status Dates Dr. Pam Mcgill MD Primary Care Provider Active Start: July 05, 2024 End: July 05, 2024 Dr. Pam Mcgill MD Referring Provider Active Start: July 05, 2024 End: July 05, 2024 Dana Blake PA, PA Attending Provider Active Start: July 05, 2024 End: July 05, 2024 Team Status: Inactive Member Role/Relationship Status Dates Dr. Pam Mcgill MD Primary Care Provider Active Start: July 05, 2024 End: July 05, 2024 Dana DE LOS SANTOS, PA Attending Provider Active Start: July 05, 2024 End: July 05, 2024 Dana Blake PA, PA Referring Provider Active Start: July 05, 2024 End: July 05, 2024 Team Status: Inactive Member Role/Relationship Status Dates Dr. Pam Mcgill MD Primary Care Provider Active Start: July 13, 2024 End: July 13, 2024 Dana Blake PA, PA Attending Provider Active Start: July 13, 2024 End: July 13, 2024 Dana Blake PA, PA Referring Provider Active Start: July 13, 2024 End: July 13, 2024 Team Status: Inactive Member Role/Relationship Status Dates Dr. Pam Mcgill MD Primary Care Provider Active Start: July 13, 2024 End: July 13, 2024 Dr. Pam Mcgill MD Referring Provider Active Start: July 13, 2024 End: July 13, 2024 Dana Blake PA, PA Attending Provider Active Start: July 13, 2024 End: July 13, 2024 Team Status: Inactive Member Role/Relationship Status Dates Dr. Pam Mcgill MD Primary Care Provider Active Start: August 01, 2024 End: August 03, 2024 Dr. Alexis Richardson DO Emergency Provider Activ e Start: August 01, 2024 End: August 03, 2024 Dr. Nahun Diaz MD Admit Provider Active Star t: August 01, 2024 End: August 03, 2024 Dr. Nahun Diaz MD Attending Provider Active Start: August 01, 2024 End: August 03, 2024 Dr. Nahun Diaz MD Other Provider Active Star t: August 01, 2024 Team Status: Active Member Role/Relationship Status Dates Dr. Pam Mcgill MD Primary Care Provider Active Start: August 01, 2024 Dr. Michael Martinez MD Attending Provider Active Start: August 01, 2024 Team Status: Active Member Role/Relationship Status Dates Dr. Pam Mcgill MD Primary Care Provider Active Start: August 02, 2024 Dr. Alexis Richardson DO Emergency Provider Activ e Start: August 02, 2024 Dr. Nahun Diaz MD Admit Provider Active Star t: August 02, 2024 Dr. Nahun Diaz MD Attending Provider Active Start: August 02, 2024 Dr. Nahun Diaz MD Other Provider Active Star t: August 02, 2024 Team Status: Active Member Role/Relationship Status Dates Dr. Pam Mcgill MD Primary Care Provider Active Start: August 03, 2024 Dr. Alexis Richardson DO Emergency Provider Activ e Start: August 03, 2024 Dr. Nahun Diaz MD Admit Provider Active Star t: August 03, 2024 Dr. Nahun Diaz MD Attending Provider Active Start: August 03, 2024 Dr. Nahun Diaz MD Other Provider Active Star t: August 03, 2024 Team Status: Inactive Member Role/Relationship Status Dates Dr. Pam Mcgill MD Primary Care Provider Active Start: August 10, 2024 End: August 10, 2024 Dr. Nahun Diaz MD Attending Provider Active Start: August 10, 2024 End: August 10, 2024 Dr. Nahun Diaz MD Referring Provider Active Start: August 10, 2024 End: August 10, 2024 Team Status: Active Member Role/Relationship Status Dates Dr. Pam Mcgill MD Primary Care Provider Active Start: September 05, 2024 Dr. Ramin Berman MD Referring Provider Active Sta rt: September 05, 2024 Dr. Ramin Berman MD Emergency Provider Active Sta rt: September 05, 2024 Dr. Neeraj Velázquez , DO Admit Provider Active Start: September 05, 2024 Dr. Neeraj Velázquez , DO Attending Provider Active Start: September 05, 2024 Goals (unrecognized section and content) Goals may be documented in a n alternate sectionGoals may be documented in an alternate sectionGoals may be documented in an alternate sectionGoals may be documented in an alternate sectionGoals may be documented in an alternate sectionGoals may be documented in an alternate sectionGoals may be documented in an alternate section FOR RECORDS PERTAINING TO PATIENTS WHO ARE OR HAVE BEEN ENROLLED IN A CHEMICAL DEPENDENCY/SUBSTANCEABUSE PROGRAM, SOME INFORMATION MAY BE OMITTED. This clinical summary was aggregated from multiple sources. Caution should be exercised in using it in the provision of clinical care. This summary normalizes information from multiple sources, and as a consequence, information in this document may materially change the coding, format and clinical context of patient data. In addition, data may be omitted in some cases. CLINICAL DECISIONS SHOULD BE BASED ON THE PRIMARY CLINICAL RECORDS. [facility] [employer] [facility]. provides no warranty or guarantee of the accuracy or completeness of information in this document.
[2024-09-06] VITALS (12 sets, daily range): BP systolic 126–148; BP diastolic 34–45; PULSE 61–83; RESP 15–18; TEMP 36–36.8; O2SAT 94–98
[2024-09-06 01:41] LABS: Anion Gap 12 (5-15); BUN 99 mg/dL (4-19); BUN/Creat Ratio 32.8 RATIO (10-20); Calcium,Total 11.7 mg/dL (7.6-11.0); Carbon Dioxide 21.0 mmol/L (21.0-32.0); Chloride 99 mmol/L (98-108); Estimated Creatinine Clearance 14.28 ml/min (50-250); Glucose 134 mg/dL (70-99); Potassium 7.2 mmol/L (3.3-5.1)
[2024-09-06 04:56] LABS: Hematocrit 34.3 % (37-47); Hemoglobin 11.6 g/dL (12.0-15.0); Mean Corp Hgb Conc 33.8 g/dL (32-36); Mean Corpuscular Volume 81.3 fL (81-99); Mean Platelet Vol. 11.6 fl (6.2-12.0); Platelet Count 130 K/mm3 (150-450); RBC Distribution Width CV 14.8 % (11.6-14.6); RBC Distribution Width SD 43.8 fl (35.1-43.9); Red Blood Count 4.22 M/mm3 (4.2-5.4); White Blood Count 6.5 K/mm3 (4.4-11.0)
[2024-09-06] MEDS: Heparin Injection (Vial) 5,000 UNIT/ML VIAL 5000 UNIT SC ×3 (04:56→22:07)
[2024-09-06 05:23] LABS: Anion Gap 11 (5-15); BUN 95 mg/dL (4-19); BUN/Creat Ratio 33.8 RATIO (10-20); Calcium,Total 10.9 mg/dL (7.6-11.0); Carbon Dioxide 23.5 mmol/L (21.0-32.0); Chloride 100 mmol/L (98-108); Estimated Creatinine Clearance 15.40 ml/min (50-250); Glucose 156 mg/dL (70-99); Potassium 5.9 mmol/L (3.3-5.1)
[2024-09-06] MEDS: Albuterol 2.5 MG/3 ML VIAL.NEB. INHALATION ×3 (07:27→19:54)
[2024-09-06] MEDS: Budesonide Respules 0.5 MG/2 ML AMPUL.NEB. INHALATION ×2 (07:27→19:54)
[2024-09-06] MEDS: Cholecalciferol (VIT D3) 25 MCG TABLET (1,000 UNITS) PO (09:35)
[2024-09-06] MEDS: Magnesium Chloride 64 MG Delay Rel.Tablet 128 MG PO (09:36)
--- NOTE | 2024-09-06 09:56 | PCM.PN.HOSP ---
Reason for Visit Reason for Visit: Diagnoses Hyperkalemia (09/05/24) Acute kidney failure, unspecified (09/05/24) Subjective Subjective Patient is an 83-year-old female who presented to [facility] admitted with hypotension and abnormal labs. Patient was found to have severe hypokalemia with potassium of 8.5 on admission Objective Data Objective Data Vital Signs: Vital Signs Temp Pulse Resp BP Pulse Ox O2 Del Method 98.2 F 67 18 127/37 H 97 Room Air 09/06/24 08:00 09/06/24 08:00 09/06/24 08:00 09/06/24 08:00 09/06/24 08:00 09/06/24 08:21 Oxygen Delivery Method Room Air Weight: 86.5 kg Body Mass Index (BMI) 37.2 Intake & Output: Intake and Output for Last 24 Hours 09/04/24 09/05/24 09/06/24 23:59 23:59 23:59 Intake Total 1430 / 1430 1150 / 1150 Output Total 300 / 300 Balance 1430 / 1430 850 / 850 Lab / Micro Data 09/06/24 04:40 09/06/24 04:40 Labs: Laboratory Results - last 24 hr 09/05/24 16:06: WBC 7.6, RBC 4.79, Hgb 13.2, Hct 40.7, MCV 85.0, MCH 27.6, MCHC 32.4, RDW Std Deviation 47.2 H, RDW Coeff of Judson 15.1 H, Plt Count 134 L, MPV 13.0 H, Immature Gran % (Auto) 0.400, Neut % (Auto) 72.6 H, Lymph % (Auto) 16.3 L, [place] % (Auto) 9.7, Eos % (Auto) 0.7, Baso % (Auto) 0.3, Absolute Neuts (auto) 5.5, Absolute Lymphs (auto) 1.23, Nucleated RBC % 0, Sodium 130 L, Potassium 8.5 H*, Chloride 103, Carbon Dioxide 17.0 L, Anion Gap 10, BUN 108 H*, Creatinine 3.52 H, Est GFR (MDRD) Non-Af 13 L, BUN/Creatinine Ratio 30.7 H, Glucose 121 H, Calcium 11.5 H, Albumin 4.4 09/05/24 18:07: Phosphorus 5.3 H, Magnesium 2.8 H, Total Bilirubin 0.43, Direct Bilirubin 0.19, AST 21, ALT 34, Alkaline Phosphatase 91, Total Protein 7.5, Albumin 4.4, Globulin 3.1 09/05/24 18:12: POC Glucose 118 H 09/05/24 19:50: Sodium Cancelled, Potassium Cancelled, Chloride Cancelled, Carbon Dioxide Cancelled, Anion Gap Cancelled, BUN Cancelled, Creatinine Cancelled, Estim Creat Clear Calc Cancelled, Est GFR (MDRD) Non-Af Cancelled, BUN/Creatinine Ratio Cancelled, Glucose Cancelled, Calcium Cancelled 09/05/24 20:15: Sodium 131 L, Potassium 7.7 H*, Chloride 103, Carbon Dioxide 17.3 L, Anion Gap 10, BUN 107 H*, Creatinine 3.25 H, Estim Creat Clear Calc 13.27 L, Est GFR (MDRD) Non-Af 14 L, BUN/Creatinine Ratio 32.9 H, Glucose 188 H, Calcium 12.1 H 09/06/24 00:42: Sodium 132 L, Potassium 7.2 H*, Chloride 99, Carbon Dioxide 21.0, Anion Gap 12, BUN 99 H, Creatinine 3.02 H, Estim Creat Clear Calc 14.28 L, Est GFR (MDRD) Non-Af 15 L, BUN/Creatinine Ratio 32.8 H, Glucose 134 H, Calcium 11.7 H 09/06/24 04:40: WBC 6.5, RBC 4.22, Hgb 11.6 L, Hct 34.3 L, MCV 81.3, MCH 27.5, MCHC 33.8, RDW Std Deviation 43.8, RDW Coeff of Judson 14.8 H, Plt Count 130 L, MPV 11.6, Sodium 135, Potassium 5.9 H, Chloride 100, Carbon Dioxide 23.5, Anion Gap 11, BUN 95 H, Creatinine 2.80 H, Estim Creat Clear Calc 15.40 L, Est GFR (MDRD) Non-Af 16 L, BUN/Creatinine Ratio 33.8 H, Glucose 156 H, Calcium 10.9 Physical Exam Narrative GENERAL: cooperative HEENT: Atraumatic; normocephalic EYES; Anicteric, Normal Conjunctiva NECK; supple, normal thyroid, RESPIRATORY: Diminished to auscultation CARDIOVASCULAR: Regular S1 S2, GI: soft, normoactive bowel sounds, : No Renal angle tenderness; EXTREMITIES: Bipedal edema MUSCULOSKELETAL: no muscle wasting NEURO: Awake; no lateralizing signs. SKIN: No Rash PSYCH; Flat affect Assessment & Plan Assessment/Plan (1) Acute hyperkalemia: (2) Acute kidney injury: PLAN: Plan Patient is an 83-year-old female who presented to [facility] admitted with hypotension and abnormal labs. Patient was found to have severe hypokalemia with potassium of 8.5 on admission 1. Acute severe hyperkalemia ? Secondary to acute kidney injury exacerbated by the use of medications including lisinopril and spironolactone. Patient was admitted to continuous telemetry. Treatment initiated per protocol with Kayexalate. Patient potassium as of the morning of 09/06/2024 still remains elevated at 5.9 additional Kayexalate given repeat potassium ordered in 4 hours to assess response to therapy 2. Acute kidney injury ? Secondary to vasomotor nephropathy from overdiuresis exacerbated by the use of medications including lisinopril and Aldactone. Suspected offending medications held patient be resuscitated with IV fluid with subsequent monitoring of electrolyte with daily BMPs ordered 3. Chronic congestive heart failure with preserved ejection fraction ? Patient has known EF of 50 to 60%. Patient remains compensated diuretic therapy currently being held given patient impaired kidney function on admission 4. Valvular heart disease ? With history of TAVR at [facility] in 2017 5. Dyslipidemia ? Patient is on Zetia did continue 6. Allergic rhinitis ? Patient is on fluticasone discontinued home dose 7. Mild coronary artery disease ? Patient did not present with any anginal symptoms we will continue with monitoring 8. Diabetes mellitus type 2 ? Listed on patient history currently not on any therapeutics we will continue with monitoring 9. Obstructive sleep apnea ? Consistent use of PAP therapy encouraged 10. Class III obesity with BMI of 40.6 ? Complicating care, weight loss advised 11. Anemia ? Secondary to chronic disorder monitoring H&H and transfuse if patient becomes symptomatic or hemoglobin falls below 7 12. Hypomagnesemia ? Secondary to impaired kidney function will monitor with daily magnesium levels.. Patient is on magnesium supplement held 13. Hyperphosphatemia ? Secondary to patient impaired kidney function monitoring with daily phosphorus levels 14 DVT prophylaxis ? Subcu heparin Time spent in the patient's overall evaluation,decision-making process, review of diagnostic data, adjustment of management, discussion with other providers, nursing nursing and ancillary staff involved in patient's care documentation, 55 Minutes Charges/Coding Visit Charges Inpatient E&M: 96829 Subs Hosp L3
[2024-09-06] MEDS: 0.9% Normal Saline (1000mL) 1,000 ML 75 ML IV (11:01)
[2024-09-06 11:50] LABS: Anion Gap 11 (5-15); BUN 86 mg/dL (4-19); BUN/Creat Ratio 33.4 RATIO (10-20); Calcium,Total 11.1 mg/dL (7.6-11.0); Carbon Dioxide 25.0 mmol/L (21.0-32.0); Chloride 101 mmol/L (98-108); Estimated Creatinine Clearance 16.84 ml/min (50-250); Glucose 122 mg/dL (70-99); Potassium 5.9 mmol/L (3.3-5.1)
[2024-09-06 15:11] LABS: Anion Gap 13 (5-15); BUN 81 mg/dL (4-19); BUN/Creat Ratio 33.0 RATIO (10-20); Calcium,Total 11.1 mg/dL (7.6-11.0); Carbon Dioxide 22.6 mmol/L (21.0-32.0); Chloride 102 mmol/L (98-108); Estimated Creatinine Clearance 17.46 ml/min (50-250); Glucose 105 mg/dL (70-99); Potassium 5.5 mmol/L (3.3-5.1)
--- NOTE | 2024-09-06 16:22 | CASEMGMT ---
Dx: Hyperkalemia LACE: 2 6-Clicks: 20 Medical record reviewed and patient evaluated for identification of discharge planning needs. Based on this review, at this time criteria are not present to indicate a need for discharge planning. Will remain available to assist with discharge planning needs as identified or requested.
[2024-09-06 19:36] LABS: Anion Gap 15 (5-15); BUN 78 mg/dL (4-19); BUN/Creat Ratio 33.4 RATIO (10-20); Calcium,Total 10.8 mg/dL (7.6-11.0); Carbon Dioxide 18.6 mmol/L (21.0-32.0); Chloride 103 mmol/L (98-108); Estimated Creatinine Clearance 18.50 ml/min (50-250); Glucose 111 mg/dL (70-99); Potassium 5.8 mmol/L (3.3-5.1)
[2024-09-07] VITALS (8 sets, daily range): BP systolic 108–150; BP diastolic 37–51; PULSE 75–101; RESP 14–18; TEMP 35.7–36.9; O2SAT 93–100
[2024-09-07] MEDS: 0.9% Normal Saline (1000mL) 1,000 ML 75 ML IV ×2 (00:30→13:13)
--- NOTE | 2024-09-07 02:17 | EKG12_ITS ---
Test Reason : CP Blood Pressure : */* mmHG Vent. Rate : 100 BPM Atrial Rate : 100 BPM P-R Int : 200 ms QRS Dur : 152 ms QT Int : 374 ms P-R-T Axes : 49 15 2 degrees QTcB Int : 482 ms Normal sinus rhythm Right bundle branch block Minimal voltage criteria for LVH, may be normal variant ( R in aVL ) T wave abnormality, consider inferior ischemia Abnormal ECG Confirmed by GAGE RAIN, LEONEL ([id number]), newspaper or periodical editor CHRISTIAN ELLER ([id number]) on 09/10/2024 1:20:57 PM Referred By: Ramin Berman Confirmed By: LEONEL ALMONTE MD
[2024-09-07] MEDS: Insulin Lispro 100 UNIT/ML VIAL (ADMELOG) 10 UNIT IV (03:07)
[2024-09-07 03:28] LABS: Hematocrit 36.8 % (37-47); Hemoglobin 12.0 g/dL (12.0-15.0); Immature Granulocytes Count 0.030 X10^3/uL (0.0-0.0); Mean Corp Hgb Conc 32.6 g/dL (32-36); Mean Corpuscular Volume 83.8 fL (81-99); Mean Platelet Vol. 11.7 fl (6.2-12.0); NRBC Flagged by Analyzer 0 % (0-5); POSITIVE DIFFERENTIAL YES; Platelet Count 117 K/mm3 (150-450); RBC Distribution Width CV 15.1 % (11.6-14.6); RBC Distribution Width SD 45.7 fl (35.1-43.9); Red Blood Count 4.39 M/mm3 (4.2-5.4); White Blood Count 9.2 K/mm3 (4.4-11.0)
[2024-09-07 03:45] LABS: Troponin T High Sensitivity 32 ng/L (<=14)
[2024-09-07 04:02] LABS: Magnesium 2.0 mg/dL (1.5-2.2)
[2024-09-07 04:05] LABS: AST(SGOT) 37 U/L (<=31); Alanine Aminotransfer ALT/SGPT 52 U/L (<=34); Albumin, Serum 3.9 g/dL (3.4-4.8); Alkaline Phosphatase 88 U/L (35-104); Anion Gap 12 (5-15); BUN 65 mg/dL (4-19); BUN/Creat Ratio 33.1 RATIO (10-20); Calcium,Total 10.3 mg/dL (7.6-11.0); Carbon Dioxide 22.1 mmol/L (21.0-32.0); Chloride 106 mmol/L (98-108); Estimated Creatinine Clearance 21.89 ml/min (50-250); Globulin 2.6 g/dL (2.2-4.2); Glucose 212 mg/dL (70-99); Potassium 4.3 mmol/L (3.3-5.1)
[2024-09-07 05:29] LABS: Troponin T High Sens 2 HR 37 ng/L (<=14)
[2024-09-07] MEDS: Heparin Injection (Vial) 5,000 UNIT/ML VIAL 5000 UNIT SC ×3 (06:31→22:26)
[2024-09-07] MEDS: Albuterol 2.5 MG/3 ML VIAL.NEB. INHALATION ×3 (07:10→20:13)
[2024-09-07] MEDS: Budesonide Respules 0.5 MG/2 ML AMPUL.NEB. INHALATION ×2 (07:10→20:13)
[2024-09-07 07:53] LABS: Troponin T High Sens 4 HR 37 ng/L (<=14)
--- NOTE | 2024-09-07 07:53 | PCM.PN.HOSP ---
Reason for Visit Reason for Visit: Diagnoses Hyperkalemia (09/05/24) Acute kidney failure, unspecified (09/05/24) Subjective Subjective Patient did receive 3 doses of 30 g of Kayexalate the day prior. Complains of being nauseous this a.m. Patient potassium is however down to two 4.3. Patient still remains hypotensive Objective Data Objective Data Vital Signs: Vital Signs Temp Pulse Resp BP Pulse Ox O2 Del Method 98.4 F 95 16 121/40 H 97 Room Air 09/07/24 06:24 09/07/24 07:11 09/07/24 07:11 09/07/24 06:24 09/07/24 07:11 09/07/24 07:11 Oxygen Delivery Method Room Air Weight: 86.5 kg Body Mass Index (BMI) 37.2 Intake & Output: Intake and Output for Last 24 Hours 09/05/24 09/06/24 09/07/24 23:59 23:59 23:59 Intake Total 1430 / 1430 2055 / 2255 1570 / 1570 Output Total 300 / 300 Balance 1430 / 1430 1755 / 1955 1570 / 1570 Lab / Micro Data 09/07/24 03:17 09/07/24 03:17 Labs: Laboratory Results - last 24 hr 09/06/24 11:05: Sodium 136, Potassium 5.9 H, Chloride 101, Carbon Dioxide 25.0, Anion Gap 11, BUN 86 H, Creatinine 2.56 H, Estim Creat Clear Calc 16.84 L, Est GFR (MDRD) Non-Af 18 L, BUN/Creatinine Ratio 33.4 H, Glucose 122 H, Calcium 11.1 H 09/06/24 14:32: Sodium 137, Potassium 5.5 H, Chloride 102, Carbon Dioxide 22.6, Anion Gap 13, BUN 81 H, Creatinine 2.47 H, Estim Creat Clear Calc 17.46 L, Est GFR (MDRD) Non-Af 19 L, BUN/Creatinine Ratio 33.0 H, Glucose 105 H, Calcium 11.1 H 09/06/24 18:52: Sodium 137, Potassium 5.8 H, Chloride 103, Carbon Dioxide 18.6 L, Anion Gap 15, BUN 78 H, Creatinine 2.33 H, Estim Creat Clear Calc 18.50 L, Est GFR (MDRD) Non-Af 21 L, BUN/Creatinine Ratio 33.4 H, Glucose 111 H, Calcium 10.8 09/07/24 02:23: POC Glucose 95 09/07/24 03:17: WBC 9.2, RBC 4.39, Hgb 12.0, Hct 36.8 L, MCV 83.8, MCH 27.3, MCHC 32.6, RDW Std Deviation 45.7 H, RDW Coeff of Judson 15.1 H, Plt Count 117 L, MPV 11.7, Immature Gran % (Auto) 0.300, Neut % (Auto) 94.8 H, Lymph % (Auto) 3.0 L, [place] % (Auto) 1.0, Eos % (Auto) 0.8, Baso % (Auto) 0.1, Absolute Neuts (auto) 8.7 H, Absolute Lymphs (auto) 0.27 L, Nucleated RBC % 0, Sodium 140, Potassium 4.3, Chloride 106, Carbon Dioxide 22.1, Anion Gap 12, BUN 65 H, Creatinine 1.97 H, Estim Creat Clear Calc 21.89 L, Est GFR (MDRD) Non-Af 25 L, BUN/Creatinine Ratio 33.1 H, Glucose 212 H, Calcium 10.3, Phosphorus 3.4, Magnesium 2.0, Total Bilirubin 0.52, AST 37 H, ALT 52 H, Alkaline Phosphatase 88, Troponin T High Sens 32 H D, Total Protein 6.5, Albumin 3.9, Globulin 2.6, Albumin/Globulin Ratio 1.5 09/07/24 05:03: Troponin T Hi Sens 2 Hr 37 H Physical Exam Narrative GENERAL: cooperative HEENT: Atraumatic; normocephalic EYES; Anicteric, Normal Conjunctiva NECK; supple, normal thyroid, RESPIRATORY: Diminished to auscultation CARDIOVASCULAR: Regular S1 S2, GI: soft, normoactive bowel sounds, : No Renal angle tenderness; EXTREMITIES: Bipedal edema MUSCULOSKELETAL: no muscle wasting NEURO: Awake; no lateralizing signs. SKIN: No Rash PSYCH; Flat affect Assessment & Plan Assessment/Plan (1) Acute hyperkalemia: (2) Acute kidney injury: PLAN: Plan Patient is an 83-year-old female who presented to [facility] admitted with hypotension and abnormal labs. Patient was found to have severe hypokalemia with potassium of 8.5 on admission 1. Acute severe hyperkalemia ? Secondary to acute kidney injury exacerbated by the use of medications including lisinopril and spironolactone. Patient was admitted to continuous telemetry. Treatment initiated per protocol with Kayexalate. Patient potassium as of the morning of 09/06/2024 still remains elevated at 5.9 additional Kayexalate given repeat potassium ordered in 4 hours to assess response to therapy ? 09/07/2024;Patient did receive 3 doses of 30 g of Kayexalate the day prior. Complains of being nauseous this a.m. Patient potassium is however down to two 4.3.. Will continue with monitoring with daily BMPs 2. Acute kidney injury ? Secondary to vasomotor nephropathy from overdiuresis exacerbated by the use of medications including lisinopril and Aldactone. Suspected offending medications held patient be resuscitated with IV fluid with subsequent monitoring of electrolyte with daily BMPs ordered ? 09/07/2024; patient creatinine on admission was 3.25, down to 1.97 3. Chronic congestive heart failure with preserved ejection fraction ? Patient has known EF of 50 to 60%. Patient remains compensated diuretic therapy currently being held given patient impaired kidney function on admission 4. Hypotension ? Held patient carvedilol, amlodipine and lisinopril and furosemide 5. Valvular heart disease ? With history of TAVR at [facility] in 2017 6. Dyslipidemia ? Patient is on Zetia did continue 7. Mild coronary artery disease ? Patient did not present with any anginal symptoms we will continue with monitoring 8. Diabetes mellitus type 2 ? Listed on patient history currently not on any therapeutics we will continue with monitoring 9. Obstructive sleep apnea ? Consistent use of PAP therapy encouraged 10. Class III obesity with BMI of 40.6 ? Complicating care, weight loss advised 11. Anemia ? Secondary to chronic disorder monitoring H&H and transfuse if patient becomes symptomatic or hemoglobin falls below 7 12. Hypomagnesemia ? Secondary to impaired kidney function will monitor with daily magnesium levels.. Patient is on magnesium supplement held 13. Hyperphosphatemia ? Secondary to patient impaired kidney function monitoring with daily phosphorus levels 14 . Allergic rhinitis ? Patient is on fluticasone did continue home dose 15. DVT prophylaxis ? Subcu heparin Time spent in the patient's overall evaluation,decision-making process, review of diagnostic data, adjustment of management, discussion with other providers, nursing nursing and ancillary staff involved in patient's care documentation, 50 Minutes Charges/Coding Visit Charges Inpatient E&M: 47784 Subs Hosp L3
[2024-09-07] MEDS: Cholecalciferol (VIT D3) 25 MCG TABLET (1,000 UNITS) PO (08:09)
[2024-09-07] MEDS: Magnesium Chloride 64 MG Delay Rel.Tablet 128 MG PO (08:09)
[2024-09-08] MEDS: 0.9% Normal Saline (1000mL) 1,000 ML 75 ML IV (05:38)
[2024-09-08] MEDS: Heparin Injection (Vial) 5,000 UNIT/ML VIAL 5000 UNIT SC (05:39)
[2024-09-08 05:40] VITALS: BP 114/37; PULSE 72; RESP 18; TEMP 36.2; O2SAT 97
[2024-09-08 06:39] LABS: Hematocrit 31.6 % (37-47); Hemoglobin 10.2 g/dL (12.0-15.0); Immature Granulocytes Count 0.040 X10^3/uL (0.0-0.0); Mean Corp Hgb Conc 32.3 g/dL (32-36); Mean Corpuscular Volume 85.9 fL (81-99); Mean Platelet Vol. 12.2 fl (6.2-12.0); NRBC Flagged by Analyzer 0 % (0-5); Platelet Count 103 K/mm3 (150-450); RBC Distribution Width CV 15.4 % (11.6-14.6); RBC Distribution Width SD 48.8 fl (35.1-43.9); Red Blood Count 3.68 M/mm3 (4.2-5.4); White Blood Count 9.7 K/mm3 (4.4-11.0)
[2024-09-08] MEDS: Albuterol 2.5 MG/3 ML VIAL.NEB. INHALATION (06:45)
[2024-09-08] MEDS: Budesonide Respules 0.5 MG/2 ML AMPUL.NEB. INHALATION (06:45)
[2024-09-08 06:46] VITALS: PULSE 79; RESP 16; O2SAT 98
[2024-09-08 07:02] LABS: AST(SGOT) 51 U/L (<=31); Alanine Aminotransfer ALT/SGPT 110 U/L (<=34); Albumin, Serum 3.3 g/dL (3.4-4.8); Alkaline Phosphatase 82 U/L (35-104); Anion Gap 11 (5-15); BUN 56 mg/dL (4-19); BUN/Creat Ratio 28.3 RATIO (10-20); Calcium,Total 9.4 mg/dL (7.6-11.0); Carbon Dioxide 21.8 mmol/L (21.0-32.0); Chloride 107 mmol/L (98-108); Estimated Creatinine Clearance 21.78 ml/min (50-250); Globulin 2.4 g/dL (2.2-4.2); Glucose 90 mg/dL (70-99); Magnesium 1.8 mg/dL (1.5-2.2); Potassium 3.9 mmol/L (3.3-5.1)
--- NOTE | 2024-09-08 07:48 | PN.HOSP_ITS ---
Reason for Visit Reason for Visit: Diagnoses Hyperkalemia (09/05/24) Acute kidney failure, unspecified (09/05/24) Subjective Subjective Patient seen blood pressure has stabilized. Patient to be assessed for discharge Objective Data Objective Data Vital Signs: Vital Signs Temp Pulse Resp BP Pulse Ox O2 Del Method O2 Flow Rate 97.1 F L 79 16 114/37 L 98 Room Air 2 09/08/24 05:40 09/08/24 06:46 09/08/24 06:46 09/08/24 05:40 09/08/24 06:46 09/08/24 07:35 09/08/24 05:40 Oxygen Flow Rate (L/min) 2 Oxygen Delivery Method Room Air Weight: 86.5 kg Body Mass Index (BMI) 37.2 Intake & Output: Intake and Output for Last 24 Hours 09/06/24 09/07/24 09/08/24 23:59 23:59 23:59 Intake Total 2055 / 2255 2763.75 / 3063.75 1700 / 1700 Output Total 300 / 300 Balance 1755 / 1955 2763.75 / 3063.75 1700 / 1700 Lab / Micro Data 09/08/24 05:58 09/08/24 05:58 Labs: Laboratory Results - last 24 hr 09/07/24 07:22: Troponin T Hi Sens 4Hr 37 H 09/08/24 05:58: WBC 9.7, RBC 3.68 L, Hgb 10.2 L, Hct 31.6 L, MCV 85.9, MCH 27.7, MCHC 32.3, RDW Std Deviation 48.8 H, RDW Coeff of Judson 15.4 H, Plt Count 103 L, M PV 12.2 H, Immature Gran % (Auto) 0.400, Neut % (Auto) 76.0 H, Lymph % (Auto) 12.4 L, [place] % (Auto) 8.8, Eos % (Auto) 2.1, Baso % (Auto) 0.3, Absolute Neuts (auto) 7.4, Absolute Lymphs (auto) 1.20, Nucleated RBC % 0, Sodium 140, Potassium 3.9, Chloride 107, Carbon Dioxide 21.8, Anion Gap 11, BUN 56 H, C reatinine 1.98 H, Estim Creat Clear Calc 21.78 L, Est GFR (MDRD) Non-Af 25 L, B UN/Creatinine Ratio 28.3 H, Glucose 90, Calcium 9.4, Phosphorus 3.8, Magnesium 1.8, Total Bilirubin 0.43, AST 51 H, ALT 110 H, Alkaline Phosphatase 82, Total Protein 5.6 L, Albumin 3.3 L, Globulin 2.4, Albumin/Globulin Ratio 1.4 Physical Exam Narrative GENERAL: cooperative HEENT: Atraumatic; normocephalic EYES; Anicteric, Normal Conjunctiva NECK; supple, normal thyroid, RESPIRATORY: Diminished to auscultation CARDIOVASCULAR: Regular S1 S2, GI: soft, normoactive bowel sounds, : No Renal angle tenderness; EXTREMITIES: Bipedal edema MUSCULOSKELETAL: no muscle wasting NEURO: Awake; no lateralizing signs. SKIN: No Rash PSYCH; Flat affect Assessment & Plan Assessment/Plan (1) Acute hyperkalemia: (2) Acute kidney injury: PLAN: Plan Patient is an 83-year-old female who presented to [facility] admitted with hypotension and abnormal labs. Patient was found to have severe hypokalemia with potassium of 8.5 on admission 1. Acute severe hyperkalemia ? Secondary to acute kidney injury exacerbated by the use of medications including lisinopril and spironolactone. Patient was admitted to continuous telemetry. Treatment initiated per protocol with Kayexalate. Patient potassium as of the morning of 09/06/2024 still remains elevated at 5.9 additional Kayexalate given repeat potassium ordered in 4 hours to assess response to therapy ? 09/07/2024;Patient did receive 3 doses of 30 g of Kayexalate the day prior. Complains of being nauseous this a.m. Patient potassium is however down to two 4.3.. Will continue with monitoring with daily BMPs ? 09/18/2024; patient hyperkalemia resolved. Plan is for patient to be discharged home and a requisition given for repeat labs early next week with results to be sent to patient's primary care physician 2. Acute kidney injury ? Secondary to vasomotor nephropathy from overdiuresis exacerbated by the use of medications including lisinopril and Aldactone. Suspected offending medications held patient be resuscitated with IV fluid with subsequent monitoring of electrolyte with daily BMPs ordered ? 09/07/2024; patient creatinine on admission was 3.25, down to 1.97 ? 09/08/2024; creatinine 1.98 3. Chronic congestive heart failure with preserved ejection fraction ? Patient has known EF of 50 to 60%. Patient remains compensated diuretic therapy currently being held given patient impaired kidney function on admission ? 09/08/2024; patient was discharged with fluid restriction. Instructed to hold her furosemide until instructed to do so by her primary care physician 4. Hypotension ? Held patient carvedilol, amlodipine and lisinopril and furosemide ? 09/08/2024 patient blood pressure stabilized 5. Valvular heart disease ? With history of TAVR at [facility] in 2017 6. Dyslipidemia ? Patient is on Zetia did continue 7. Mild coronary artery disease ? Patient did not present with any anginal symptoms we will continue with monitoring 8. Diabetes mellitus type 2 ? Listed on patient history currently not on any therapeutics we will continue with monitoring 9. Obstructive sleep apnea ? Consistent use of PAP therapy encouraged 10. Class III obesity with BMI of 40.6 ? Complicating care, weight loss advised 11. Anemia ? Secondary to chronic disorder monitoring H&H and transfuse if patient becomes symptomatic or hemoglobin falls below 7 12. Hypomagnesemia ? Secondary to impaired kidney function will monitor with daily magnesium levels.. Patient is on magnesium supplement held 13. Hyperphosphatemia ? Secondary to patient impaired kidney function monitoring with daily phosphorus levels 14 . Allergic rhinitis ? Patient is on fluticasone did continue home dose 15. DVT prophylaxis ? Subcu heparin Time spent in the patient's overall evaluation,decision-making process, review of diagnostic data, adjustment of management, discussion with other providers, nursing nursing and ancillary staff involved in patient's care documentation, 50 Minutes
[2024-09-08 09:18] VITALS: BP 133/48; PULSE 82; RESP 14; TEMP 36.8; O2SAT 91
[2024-09-08] MEDS: Fluticasone 0.05% 1 SPRAY NASAL.SRY 2 SPRAY NASAL (09:22)
[2024-09-08] MEDS: Magnesium Chloride 64 MG Delay Rel.Tablet 128 MG PO (09:23)
[2024-09-08] MEDS: Cholecalciferol (VIT D3) 25 MCG TABLET (1,000 UNITS) PO (09:24)
--- NOTE | 2024-09-08 10:10 | DS.PCM_ITS ---
Providers Date of Admission: 09/05/24 Date of Discharge: 09/08/24 Primary Care Physician: Dr. Alejandra Randhawa MD Reason For Visit: SEVERE HYPERKALEMIA Diagnosis Discharge Diagnosis (1) Acute hyperkalemia: Status: Acute Code(s): E87.5 - Hyperkalemia (2) Acute kidney injury: Status: Acute Code(s): N17.9 - Acute kidney failure, unspecified Plan Patient is an 83-year-old female who presented to [facility] admitted with hypotension and abnormal labs. Patient was found to have severe hypokalemia with potassium of 8.5 on admission 1. Acute severe hyperkalemia ? Secondary to acute kidney injury exacerbated by the use of medications including lisinopril and spironolactone. Patient was admitted to continuous telemetry. Treatment initiated per protocol with Kayexalate. Patient potassium as of the morning of 09/06/2024 still remains elevated at 5.9 additional Kayexalate given repeat potassium ordered in 4 hours to assess response to therapy ? 09/07/2024;Patient did receive 3 doses of 30 g of Kayexalate the day prior. Complains of being nauseous this a.m. Patient potassium is however down to two 4.3.. Will continue with monitoring with daily BMPs ? 09/18/2024; patient hyperkalemia resolved. Plan is for patient to be discharged home and a requisition given for repeat labs early next week with results to be sent to patient's primary care physician 2. Acute kidney injury ? Secondary to vasomotor nephropathy from overdiuresis exacerbated by the use of medications including lisinopril and Aldactone. Suspected offending medications held patient be resuscitated with IV fluid with subsequent monitoring of electrolyte with daily BMPs ordered ? 09/07/2024; patient creatinine on admission was 3.25, down to 1.97 ? 09/08/2024; creatinine 1.98 3. Chronic congestive heart failure with preserved ejection fraction ? Patient has known EF of 50 to 60%. Patient remains compensated diuretic therapy currently being held given patient impaired kidney function on admission ? 09/08/2024; patient was discharged with fluid restriction. Instructed to hold her furosemide until instructed to do so by her primary care physician 4. Hypotension ? Held patient carvedilol, amlodipine and lisinopril and furosemide ? 09/08/2024 patient blood pressure stabilized 5. Valvular heart disease ? 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 Dyslipidemia ? Patient is on Zetia did continue 7. Mild coronary artery disease ? Patient did not present with any anginal symptoms we will continue with monitoring 8. Diabetes mellitus type 2 ? Listed on patient history currently not on any therapeutics we will continue with monitoring 9. Obstructive sleep apnea ? Consistent use of PAP therapy encouraged 10. Class III obesity with BMI of 40.6 ? Complicating care, weight loss advised 11. Anemia ? Secondary to chronic disorder monitoring H&H and transfuse if patient becomes symptomatic or hemoglobin falls below 7 12. Hypomagnesemia ? Secondary to impaired kidney function will monitor with daily magnesium levels.. Patient is on magnesium supplement held 13. Hyperphosphatemia ? Secondary to patient impaired kidney function monitoring with daily phosphorus levels 14 . Allergic rhinitis ? Patient is on fluticasone did continue home dose 15. DVT prophylaxis ? Subcu heparin Time spent in the patient's overall evaluation,decision-making process, review of diagnostic data, adjustment of management, discussion with other providers, nursing nursing and ancillary staff involved in patient's care documentation, 50 Minutes Medications at Discharge Home Medications albuterol sulfate 90 mcg/actuation aerosol inhaler 1 puff inhalation Q4H PRN PRN Asthma 08/06/16 cholecalciferol (vitamin D3) 25 mcg (1,000 unit) tablet 1,000 unit PO DAILY vitamin 08/06/16 montelukast 10 mg tablet 10 mg PO DAILY allergies 08/06/16 omega-3 fatty acids-fish oil 300 mg-1,000 mg capsule 1 ea PO DAILY supplement 08/06/16 vitamin A 2,400 mcg capsule 8,000 unit PO DAILY vitamin 08/06/16 vitamin E mixed 1,000 unit capsule 1,000 unit PO DAILY vitamin 08/06/16 aspirin 81 mg tablet,delayed release 81 mg PO DAILY@0800 heart health #90 tabs 02/11/22 zinc gluconate 50 mg tablet 50 mg PO DAILY supplement 02/11/22 ezetimibe 10 mg tablet (Zetia) 10 mg PO DAILY cholesterol #90 tabs 04/12/24 cetirizine 10 mg tablet 10 mg PO QDAY PRN allergy symptoms 04/17/24 magnesium 250 mg tablet 250 mg PO DAILY supplement 04/17/24 rosuvastatin 5 mg tablet 5 mg PO DAILY cholesterol 04/17/24 diphenhydramine HCl 25 mg capsule (Benadryl) 25 mg PO QHS PRN allergic reaction 07/05/24 fluticasone propionate 50 mcg/actuation nasal spray,suspension (Flonase Allergy Relief) 2 spray intranasal DAILY PRN allergy symptoms 07/05/24 levothyroxine 137 mcg tablet (Synthroid) 137 mcg PO QDAY thyroid 07/05/24 turmeric root extract 500 mg capsule 500 mg PO QDAY supplement 07/05/24 fluticasone propionate 115 mcg-salmeterol 21 mcg/actuation HFA inhaler (Advair HFA) 2 puff inhalation BID breathing 08/01/24 carvedilol 6.25 mg tablet 6.25 mg PO BIDCM 30 days #60 tabs 09/08/24 Hospital Course Summary of Care Provided Minutes Spent on Discharge: 38 Physical Exam Narrative GENERAL: cooperative HEENT: Atraumatic; normocephalic EYES; Anicteric, Normal Conjunctiva NECK; supple, normal thyroid, RESPIRATORY: Diminished to auscultation CARDIOVASCULAR: Regular S1 S2, GI: soft, normoactive bowel sounds, : No Renal angle tenderness; EXTREMITIES: no edema MUSCULOSKELETAL: no muscle wasting NEURO: Awake; no lateralizing signs. SKIN: No Rash PSYCH; Flat affect Weight / BMI Weight Weight: 86.5 kg Body Mass Index (BMI) 37.2 ABG / Lab / Microbiology Data 09/08/24 05:58 09/08/24 05:58 Laboratory: Laboratory Results - last 24 hr 09/08/24 05:58: WBC 9.7, RBC 3.68 L, Hgb 10.2 L, Hct 31.6 L, MCV 85.9, MCH 27.7, MCHC 32.3, RDW Std Deviation 48.8 H, RDW Coeff of Judson 15.4 H, Plt Count 103 L, M PV 12.2 H, Immature Gran % (Auto) 0.400, Neut % (Auto) 76.0 H, Lymph % (Auto) 12.4 L, [place] % (Auto) 8.8, Eos % (Auto) 2.1, Baso % (Auto) 0.3, Absolute Neuts (auto) 7.4, Absolute Lymphs (auto) 1.20, Nucleated RBC % 0, Sodium 140, Potassium 3.9, Chloride 107, Carbon Dioxide 21.8, Anion Gap 11, BUN 56 H, C reatinine 1.98 H, Estim Creat Clear Calc 21.78 L, Est GFR (MDRD) Non-Af 25 L, B UN/Creatinine Ratio 28.3 H, Glucose 90, Calcium 9.4, Phosphorus 3.8, Magnesium 1.8, Total Bilirubin 0.43, AST 51 H, ALT 110 H, Alkaline Phosphatase 82, Total Protein 5.6 L, Albumin 3.3 L, Globulin 2.4, Albumin/Globulin Ratio 1.4 D/C Instructions Discharge Diet: No restrictions, 8 Cup Fluid Restriction and 2000 mg Sodium Diet Discharge Activity: Return to Normal Activity Call your doctor if you observe: Fever of 101 or Higher, Shortness of breath, Fainting spells and Chest pain DC O2, CPAP, BIPAP Needs Home O2 Discharge instructions: No Meaningful Use Info Meaningful Use Meaningful Use Diagnoses (Choose all that apply): None applicable Ischemic Stroke Statin Dosing Therapy Reference: STATIN DOSE THERAPY REFERENCE: * Patients > 75 years receive moderate or high dose statin therapy. * Patients 75 years or YOUNGER should receive HIGH intensity statin dose unless contraindicated. You will be required to document reason for non-treatment if statin daily dose does not meet guidelines. HIGH DOSE STATIN THERAPY DAILY Atorvastatin > than or = to 40 mg Rosuvastatin > than or = to 20 mg Amlodipine + Atorvastatin > than or = to 2.5/40 mg Ezetimibe + Simvastatin 10/80 mg Simvastatin 80mg Discharge Plan Admission Admit Date/Time: 09/05/24 17:55 Attending Provider: Nahun Diaz Primary Care Provider: Alejandra Randhwaa Consulting Providers: Neeraj Velázquez Discharge Orders/Prescriptions Prescriptions: New carvedilol 6.25 mg Tablet 6.25 mg PO BIDCM 30 Days Qty: 60 0RF Continued zinc gluconate 50 mg tablet 50 mg PO DAILY aspirin 81 mg tablet,delayed release (DR/EC) 81 mg PO DAILY@0800 Qty: 90 3RF rosuvastatin 5 mg tablet 5 mg PO DAILY Rx Instructions: ONLY TAKE OIN TUESDAY AND TUESDAY magnesium 250 mg tablet 250 mg PO DAILY cetirizine 10 mg tablet 10 mg PO QDAY PRN (Reason: allergy symptoms) fluticasone propionate [Flonase Allergy Relief] 50 mcg/actuation spray,suspension 2 spray intranasal DAILY PRN (Reason: allergy symptoms) Rx Instructions: administer into each nostril levothyroxine [Synthroid] 137 mcg tablet 137 mcg PO QDAY Rx Instructions: Take 1 tab daily, add 1/2 tab on Sundays turmeric root extract 500 mg capsule 500 mg PO QDAY diphenhydramine HCl [Benadryl] 25 mg capsule 25 mg PO QHS PRN (Reason: allergic reaction) vitamin A 8,000 UNIT capsule 8,000 unit PO DAILY montelukast 10 MG tablet 10 mg PO DAILY Patient Comments: PT TAKES AT BEDTIME albuterol sulfate 1 PUFF inhaler 1 puff INHALATION Q4H PRN PRN (Reason: Asthma) cholecalciferol (vitamin D3) 1,000 UNIT tablet 1,000 unit PO DAILY omega-3 fatty acids-fish oil 1 EACH capsule 1 ea PO DAILY vitamin E mixed 1,000 UNIT capsule 1,000 unit PO DAILY fluticasone propion-salmeterol [Advair HFA] 115-21 mcg/actuation HFA aerosol inhaler 2 puff INHALATION BID ezetimibe [Zetia] 10 mg tablet 10 mg PO DAILY Qty: 90 3RF Discontinued amlodipine 5 mg tablet 5 mg PO DAILY Qty: 90 4RF potassium chloride 20 mEq Tablet,Er Particles/Crystals 20 meq PO BIDCM Qty: 60 0RF furosemide 40 mg tablet 40 mg PO BID Qty: 120 3RF lisinopril 40 mg tablet 40 mg PO DAILY Qty: 90 3RF carvedilol 25 mg tablet 25 mg PO BID Qty: 180 3RF Rx Instructions: must administer with a meal/food spironolactone 25 mg tablet 25 mg PO DAILY Qty: 90 3RF Other Ambulatory Orders: Basic Metabolic Profile (BMP) (Routine) Timeframe: [id number] Facility: [facility] - Location: Laboratory Ordered By: Dr. Nahun Diaz Referrals / Follow Up: Alejandra Randhawa MD [Primary Care Provider] - Within 1 Week (Repeat BMP) Disposition Disposition (needs filled in before D/C Order can be placed): Home, Self Care Charges/Coding Visit Charges Inpatient E&M: 03213 Disch Hosp >30min
== END 2024-09-08 12:37 | disposition home or self-care (01) | DRG 641 ==
LOC: ED 18:03 → PCU 18:31
PROVIDERS: Internal Medicine; Admitting Provider Hospitalist; Emergency Provider Emergency Medicine; PCP Internal Medicine; Referring Provider Emergency Medicine; Visit Provider Internal Medicine
DX: E87.5 Hyperkalemia (principal); I50.32 Chronic diastolic (congestive) heart failure; Z68.41 Body mass index [BMI] 40.0-44.9, adult; N17.9 Acute kidney failure, unspecified; D63.8 Anemia in other chronic diseases classified elsewhere; I11.0 Hypertensive heart disease with heart failure; E11.9 Type 2 diabetes mellitus without complications; E03.9 Hypothyroidism, unspecified; J45.909 Unspecified asthma, uncomplicated; Z95.2 Presence of prosthetic heart valve; I25.10 Atherosclerotic heart disease of native coronary artery without angina pectoris; E78.5 Hyperlipidemia, unspecified; G47.33 Obstructive sleep apnea (adult) (pediatric); I95.9 Hypotension, unspecified; E66.813 Obesity, class 3; Z79.51 Long term (current) use of inhaled steroids; Z79.82 Long term (current) use of aspirin; Z79.890 Hormone replacement therapy; Z79.899 Other long term (current) drug therapy
CPT/HCPCS: 36415; 80048; 80053; 80076; 82040; 82962; 83735; 84100; 84484; 85025; 85027; 93005; 94640; 94668; 94762; 99285; A4216; J0612; J2405

== ENCOUNTER → 2024-09-20 | Outpatient (CLI) | payer MEDICARE, SELFPAY ==
[2024-09-20 11:50] LABS: Anion Gap 10 (5-15); BUN 15 mg/dL (4-19); BUN/Creat Ratio 15.0 RATIO (10-20); Calcium,Total 10.3 mg/dL (7.6-11.0); Carbon Dioxide 22.0 mmol/L (21.0-32.0); Chloride 109 mmol/L (98-108); Glucose 117 mg/dL (70-99); Potassium 4.2 mmol/L (3.3-5.1); Pro- Brain NATRIURETIC PEPTIDE 5710 pg/mL (<=1800)
== END | disposition home or self-care (01) ==
LOC: LAB 10:17
PROVIDERS: PCP Internal Medicine; Referring Provider Physician Assistant Medical; Visit Provider Physician Assistant Medical
DX: R06.09 Other forms of dyspnea (principal); N17.9 Acute kidney failure, unspecified
CPT/HCPCS: 36415; 80048; 83880

== ENCOUNTER → 2024-10-04 | Outpatient (CLI) | payer MEDICARE, SELFPAY ==
[2024-10-04 11:05] LABS: Anion Gap 11 (5-15); BUN 19 mg/dL (4-19); BUN/Creat Ratio 16.5 RATIO (10-20); Calcium,Total 10.5 mg/dL (7.6-11.0); Carbon Dioxide 25.7 mmol/L (21.0-32.0); Chloride 104 mmol/L (98-108); Glucose 118 mg/dL (70-99); Potassium 4.2 mmol/L (3.3-5.1)
== END | disposition home or self-care (01) ==
PROVIDERS: PCP Internal Medicine; Referring Provider Physician Assistant Medical; Visit Provider Physician Assistant Medical
DX: I35.0 Nonrheumatic aortic (valve) stenosis (principal)
CPT/HCPCS: 36415; 80048

== ENCOUNTER → 2024-11-28 | Outpatient (CLI) | payer MEDICARE, SELFPAY ==
[2024-11-28 12:00] LABS: Anion Gap 11 (5-15); BUN 19 mg/dL (4-19); BUN/Creat Ratio 17.6 RATIO (10-20); Calcium,Total 10.5 mg/dL (7.6-11.0); Carbon Dioxide 27.3 mmol/L (21.0-32.0); Chloride 103 mmol/L (98-108); Glucose 127 mg/dL (70-99); Potassium 3.8 mmol/L (3.3-5.1)
== END | disposition home or self-care (01) ==
LOC: LAB 10:26
PROVIDERS: PCP Internal Medicine; Referring Provider Physician Assistant Medical; Visit Provider Physician Assistant Medical
DX: R06.09 Other forms of dyspnea (principal)
CPT/HCPCS: 36415; 80048

== ENCOUNTER → 2025-01-09 | Outpatient (CLI) | payer MEDICARE, SELFPAY ==
[2025-01-09 12:03] LABS: Anion Gap 11 (5-15); BUN 22 mg/dL (4-19); BUN/Creat Ratio 21.2 RATIO (10-20); Calcium,Total 10.4 mg/dL (7.6-11.0); Carbon Dioxide 26.8 mmol/L (21.0-32.0); Chloride 103 mmol/L (98-108); Glucose 120 mg/dL (70-99); Potassium 3.7 mmol/L (3.3-5.1)
== END | disposition home or self-care (01) ==
LOC: LAB 10:21
PROVIDERS: PCP Internal Medicine; Referring Provider Physician Assistant Medical; Visit Provider Physician Assistant Medical
DX: R06.09 Other forms of dyspnea (principal)
CPT/HCPCS: 36415; 80048

== ENCOUNTER → 2025-01-10 | Outpatient (CLI) | payer MEDICARE, SELFPAY ==
[2025-01-10 13:07] LABS: Pro- Brain NATRIURETIC PEPTIDE 2868 pg/mL (<=1800)
== END | disposition home or self-care (01) ==
LOC: LAB 10:46
PROVIDERS: PCP Internal Medicine; Referring Provider Nurse Practitioner Gerontology; Visit Provider Nurse Practitioner Gerontology
DX: R06.09 Other forms of dyspnea (principal)
CPT/HCPCS: 36415; 83880

== ENCOUNTER → 2025-02-04 | Outpatient (CLI) | payer MEDICARE, SELFPAY ==
[2025-02-04 12:35] LABS: Anion Gap 10 (5-15); BUN 26 mg/dL (4-19); BUN/Creat Ratio 22.2 RATIO (10-20); Calcium,Total 10.6 mg/dL (7.6-11.0); Carbon Dioxide 28.8 mmol/L (21.0-32.0); Chloride 101 mmol/L (98-108); Glucose 128 mg/dL (70-99); Potassium 3.4 mmol/L (3.3-5.1)
== END | disposition home or self-care (01) ==
LOC: LAB 10:15
PROVIDERS: PCP Internal Medicine; Referring Provider Nurse Practitioner Gerontology; Visit Provider Nurse Practitioner Gerontology
DX: Z51.81 Encounter for therapeutic drug level monitoring (principal); Z79.899 Other long term (current) drug therapy
CPT/HCPCS: 36415; 80048

== ENCOUNTER → 2025-02-06 | Outpatient (CLI) | payer MEDICARE, SELFPAY | END | disposition home or self-care (01) | LOC: PSN 11:49 | PROVIDERS: PCP Internal Medicine; Referring Provider Nurse Practitioner Gerontology; Visit Provider Nurse Practitioner Gerontology | DX: R00.2 Palpitations (principal) | CPT/HCPCS: 93225; 93226 ==

== ENCOUNTER 2025-02-15 08:32 | Inpatient (IN) | payer MEDICARE, SELFPAY ==
[2025-02-15] VITALS (23 sets, daily range): BP systolic 135–205; BP diastolic 42–65; PULSE 70–112; RESP 10–34; TEMP 35.8–36.6; O2SAT 81–98; BMI 41.6; BMI 40.2
--- NOTE | 2025-02-15 08:46 | EKG12_ITS ---
Test Reason : SOB Blood Pressure : */* mmHG Vent. Rate : 109 BPM Atrial Rate : 109 BPM P-R Int : 140 ms QRS Dur : 152 ms QT Int : 380 ms P-R-T Axes : 32 73 14 degrees QTcB Int : 511 ms Sinus tachycardia Possible Left atrial enlargement Right bundle branch block Abnormal ECG Confirmed by ADELA RAIN, TAYLER ([id number]), video news editor CHRISTIAN ELLER ([id number]) on 02/18/2025 6:46:00 AM Referred By: ARIAN Confirmed By: TAYLER CHAPMAN MD
--- NOTE | 2025-02-15 08:49 | ED.VIS.DYS ---
HPI History of Present Illness Chief Complaint: Chest Pain Detail of Chief Complaint: Shortness of breath. No chest pain. Informant: patient and family (Accompanied by her daughter. History primarily by patient.) Onset/Context/Timing Onset: Days (On coming last several days worse today.) Context: gradual Timing: Continuous Quality: Positive for Orthopnea Current Severity: Moderate Maximum Severity: Moderate Worsened by: Lying flat Relieved by: Oxygen Associated Symptoms cough Chest Pain: Positive for None Narrative Narrative: 84-year-old female past medical history of asthma, aortic stenosis, CAD, diabetes, sleep apnea on CPAP at night. And history of CHF. No history of DVT or PE or risk factors. States she has had increasing shortness of breath the last several days worse today. Nonproductive cough. She denies any chest pain. She denies any fever or chills. She denies any nausea, vomiting, diarrhea. No leg pain or swelling. No hemoptysis. She is on aspirin no other blood thinners. PE Risk Factors: Negative for Cancer, OCP + Smoking + > 35, Prior DVT or PE, Recent immobilization, Recent surgery or Recent travel Prior similar symptoms: Yes Recent Illness/Hospitalization: No PFSH PFSH Medical History Hypothyroidism Kidney disease Non-smoker CPAP (continuous positive airway pressure) dependence Sleep apnea Asthma Congestive heart failure (CHF) Hypertension Nonrheumatic aortic (valve) stenosis Atherosclerosis of coronary artery of [place] heart without angina pectoris Obesity Atherosclerotic heart disease of [place] coronary artery with unstable angina pectoris OPHELIA (obstructive sleep apnea) Essential hypertension Fatigue Family history of hypertension Exertional shortness of breath Exertional chest pain Dyspnea on exertion Dizziness and giddiness Hyperlipidemia Carotid bruit Diabetes mellitus Hypokalemia Home Medications ?Medication ?Instructions ?Recorded ?Last Taken ?Type albuterol sulfate 90 mcg/actuation 1 puff inhalation Q4H PRN PRN 08/06/16 Unknown History aerosol inhaler Asthma cholecalciferol (vitamin D3) 25 1,000 unit PO DAILY vitamin 08/06/16 09/04/24 History mcg (1,000 unit) tablet montelukast 10 mg tablet 10 mg PO DAILY allergies 08/06/16 09/04/24 History omega-3 fatty acids-fish oil 300 1 ea PO DAILY supplement 08/06/16 09/04/24 History mg-1,000 mg capsule vitamin A 2,400 mcg capsule 8,000 unit PO DAILY vitamin 08/06/16 09/04/24 History vitamin E mixed 1,000 unit capsule 1,000 unit PO DAILY vitamin 08/06/16 09/04/24 History aspirin 81 mg tablet,delayed 81 mg PO DAILY@0800 [facility] 02/11/22 09/05/24 Rx release #90 tabs zinc gluconate 50 mg tablet 50 mg PO DAILY supplement 02/11/22 09/04/24 History ezetimibe 10 mg tablet (Zetia) 10 mg PO DAILY cholesterol #90 tabs 04/12/24 09/04/24 Rx cetirizine 10 mg tablet 10 mg PO QDAY PRN allergy symptoms 04/17/24 07/31/24 History magnesium 250 mg tablet 250 mg PO DAILY supplement 04/17/24 09/04/24 History diphenhydramine HCl 25 mg capsule 25 mg PO QHS PRN allergic reaction 07/05/24 07/31/24 History (Benadryl) fluticasone propionate 50 2 spray intranasal DAILY PRN 07/05/24 08/01/24 History mcg/actuation nasal allergy symptoms spray,suspension (Flonase Allergy Relief) levothyroxine 137 mcg tablet 137 mcg PO QDAY thyroid 07/05/24 09/05/24 History (Synthroid) turmeric root extract 500 mg 500 mg PO QDAY supplement 07/05/24 09/04/24 History capsule fluticasone propionate 115 2 puff inhalation BID breathing 08/01/24 09/04/24 History mcg-salmeterol 21 mcg/actuation HFA inhaler (Advair HFA) rosuvastatin 5 mg tablet 5 mg PO .twice a week cholesterol 09/20/24 Unknown History coenzyme Q10 30 mg capsule 30 mg PO QDAY 11/14/24 Unknown History multivitamin 1 tab PO QDAY 11/14/24 Unknown History amlodipine 5 mg tablet 5 mg PO QDAY #90 tabs 01/10/25 Unknown Rx furosemide 40 mg tablet (Lasix) 40 mg PO .COMPLEX #180 tabs 01/24/25 Unknown Rx carvedilol 12.5 mg tablet 12.5 mg PO BIDCM #180 tabs 02/11/25 Unknown Rx Allergy/AdvReac Type Severity Reaction Status Date / Time Environmental Allergies: Allergy Anaphylaxis Verified 02/15/25 08:39 Uncoded rosuvastatin (From Crestor) AdvReac Intermediate Myalgias Verified 02/15/25 08:39 atorvastatin (From Lipitor) AdvReac Mild Other Verified 02/15/25 08:39 nifedipine AdvReac Unknown Verified 02/15/25 08:39 simvastatin (From Zocor) AdvReac Myalgias Verified 02/15/25 08:39 Family History Father , age 70 Colon cancer Mother , age 67 CAD (coronary artery disease) Hypertension Brother , age 59 CAD (coronary artery disease) Hypertension Brother Hypertension Diabetes Other Family history of hypertension Surgical History History of left heart catheterization (08/09/16) History of parathyroid surgery (02/2002) History of tubal ligation History of cholecystectomy H/O aortic valve replacement (12/22/16) Social History Smoking Status: Never smoker alcohol intake: never substance use type: does not use caffeine: Yes Type: tea Number of servings: 2 what type of physical activity do you participate in: walking frequency: 3-4 times per week duration: 15-30 minutes/day seatbelt use: always do you feel safe at home: Yes ROS ROS ED ROS Narrative Shortness of breath. Denies chest pain. Denies fever or chills. Chronic nonproductive cough. No leg pain or swelling. Constitutional Constitutional ED: Denies chills or fever(s) Eyes Eyes: Denies blurry vision ENT ENT ED: Denies ear pain Cardiovascular Cardiovascular: Reports orthopnea; Denies chest pain Respiratory/Chest Respiratory/Chest: Reports cough, dyspnea and orthopnea Gastrointestinal Gastrointestinal: Denies abdominal pain Genitourinary Genitourinary ED: Denies dysuria or hematuria Musculoskeletal Musculoskeletal: Denies arthralgias Integumentary Denies abscess Neurologic Neurologic: Denies headache(s) Psychiatric Psychiatric: Denies anxiety or depression Endocrine Endocrinology: Denies cold intolerance Hematologic/Lymphatic Hematologic/Lymphatic: Denies easy bleeding, easy bruising or lymphadenopathy Allergic/Immunologic Allergic/Immunologic ED: Denies mouth swelling, tongue swelling or urticaria EXAM Physical Exam Narrative Exam Narrative: 84-year-old female sitting upright in bed. She has accelerated heart rate and respiratory rate. Initially she is 81% hypoxic on 3 L. She is usually not on oxygen but has it at home to use. Currently is on BiPAP and doing much better. Currently on BiPAP her O2 saturation is around 94%. H EENT exam pupils round react light. Moist mutes membranes. Neck nontender no JVD. Lungs diffuse Rales. No rhonchi. Heart tachycardic 110. Chest wall and ribs nontender. Abdomen soft nontender. Moving all 4 extremities. Calves are nontender without edema or cords. Normal tile mechanic strength. Normal dorsi plantarflexion. Back nontender. Neurologically she is awake alert. Answering questions and following commands. Const Vital Signs: 02/15/25 08:34 02/15/25 08:38 02/15/25 08:42 Temperature 97.6 F L 97.6 F L Temperature Source Temporal Temporal Pulse Rate 109 H 109 H Respiratory Rate 34 H 34 H Respiratory Effort Short of Breath Labored Accessory Muscle Use Respiratory Pattern Tachypnea Blood Pressure 205/65 H Blood Pressure Mean 111 Pulse Ox 81 81 Oxygen Delivery Method Nasal Cannula Nasal Cannula Oxygen Flow Rate (L/min) 3 3 Fraction of Inspired Oxygen (FIO2) 02/15/25 08:42 02/15/25 08:46 02/15/25 08:48 Temperature Temperature Source Pulse Rate 112 H Respiratory Rate 28 H Respiratory Effort Respiratory Pattern Blood Pressure 205/65 H Blood Pressure Mean 111 Pulse Ox 95 98 Oxygen Delivery Method Bi-pap Oxygen Flow Rate (L/min) Fraction of Inspired Oxygen (FIO2) 50 50 02/15/25 08:51 02/15/25 09:20 Temperature Temperature Source Pulse Rate 92 Respiratory Rate 21 H Respiratory Effort Respiratory Pattern Blood Pressure 205/65 H Blood Pressure Mean 111 Pulse Ox 98 Oxygen Delivery Method Bi-pap Oxygen Flow Rate (L/min) Fraction of Inspired Oxygen (FIO2) 50 30 MDM MDM MDM Narrative Medical decision making narrative: 84-year-old female short of breath no history of DVT or PE risk factors. This may be underlying CHF may or may not be from her underlying aortic stenosis. Other considerations would be pneumonia, cardiac event, infection. She will be treated with BiPAP which she is already on. She will be given 1 DuoNeb aerosol. And undergo a cardiac workup with a BNP. Patient's exam and chest x-ray are consistent with CHF. She will be given IV Lasix. She is improving on the BiPAP. Repeat exam at 9:39 AM patient is doing better. She has received Lasix. She is remains on the BiPAP. I have the hospitalist on page for admission. History & Record Review Discussion w/independent historian: Patient and Family Additional record(s) reviewed:: Prior inpatient record, Prior outpatient record, Prior ED visit and Prior labs Lab Data Attestation: I reviewed the patient's lab results. Lab results narrative: ABG shows a pH of 7.34. pCO2 of 43. PaO2 of 95 with an O2 sat of 96% on BiPAP and oxygen. Chest x-ray consistent with CHF/pulmonary edema and cardiomegaly. CBC shows a white count 12.0. H&H 13 and 41. Platelets 278. Last echocardiogram in July showed an EF of 55% with a bioprosthetic aortic valve with aortic regurgitation. Chemistries show a gap of 13. BUN and creatinine of 18 and 1.1. Glucose 158. Initial troponin 33. BNP elevated at 4, 900. Labs: Laboratory Results - last 24 hr 02/15/25 08:40 WBC 12.0 H RBC 4.77 Hgb 13.3 Hct 41.9 MCV 87.8 MCH 27.9 MCHC 31.7 L RDW Std Deviation 48.9 H RDW Coeff of [place] 15.3 H Plt Count 278 MPV 11.6 Immature Gran % (Auto) 0.500 Neut % (Auto) 78.3 H Lymph % (Auto) 12.[address] [place] % (Auto) 7.5 Eos % (Auto) 1.0 Baso % (Auto) 0.5 Absolute Neuts (auto) 9.4 H Absolute Lymphs (auto) 1.46 Nucleated RBC % 0 Sodium 138 Potassium 3.7 Chloride 102 Carbon Dioxide 23.5 Anion Gap 13 BUN 18 Creatinine 1.11 Estim Creat Clear Calc 40.73 L Est GFR (MDRD) Non-Af 50 L BUN/Creatinine Ratio 16.1 Glucose 158 H Calcium 9.3 Troponin T High Sens 33 H NT pro BNP II 4900 H ABG Data ABG results: ABG 02/15/25 08:55 Specimen Type ART Sample Site L Radial pH 7.35 Bicarbonate Actual 24.0 Total CO2 25 Base Excess -2 O2 Saturation 97 O2 % 4.0 ABG pCO2 43.8 ABG pO2 95 Alcides Test Positive O2 Delivery Device Cannula Vent Mode Not entered Radiography Chest X-Ray - ED: 1 View, Read by ED Physician, Mediastinum, Bony Structures, Chronic Changes, Cardiomegaly and CHF Diagnostic Testing: Clinical Impression(s) from Imaging Studies Chest X-Ray 02/15/25 08:57 IMPRESSION: Cardiomegaly. CHF. Questionable pericardial effusion. Reading Location: [facility] Chest x-ray, portable, single view interpreted by myself shows cardiomegaly, pulmonary edema/CHF. No obvious pneumonia. Chronic changes. Rhythm Strip Rhythm Strip: Sinus Tach Rate: 109 Ectopy: None EKG Initial EKG: Attestation: I personally reviewed and interpreted this EKG as follows: Interpretation: No Acute Injury Pattern and Sinus Tachycardia Comments: Sinus tachycardia rate of 109 no acute signs of [place] or ischemia. Patient has a right bundle branch block. Very similar to prior EKG done on February 11. She does have ST depression and T wave inversions have been seen on prior. Prior EKG tracings: available for review Prior: Unchanged Critical Care Time Critical Care Time: Yes Critical care time (excluding procedures): 30-74 minutes, Including time spent:, Discussing w/Patient &/or Family/Professor Of Education, Discussing w/Consultants, Arranging Admission or Transfer, Performing Direct Patient Care at Bedside and - (35 minutes) Discharge Plan Dx/Rx/DC Orders Clinical Impression: Acute dyspnea, Hypoxia, Congestive heart failure, History of CAD (coronary artery disease), History of diabetes mellitus Disposition Disposition: Acute Care [facility]
--- NOTE | 2025-02-15 08:57 | RAD_ITS ---
PROCEDURE: CHEST 1 VIEW (PORTABLE) 02/15/2025 REASON FOR EXAM: CHEST PAIN TECHNIQUE: Frontal view of the chest. COMPARISON: August 01, 2024. FINDINGS: Hardware: EKG electrodes are seen. Heart: Moderate cardiomegaly. Questionable pericardial effusion. Lungs: Vascular congestion and CHF. Blunting of both costophrenic angles. In keeping with small bilateral effusions. Bones: Degenerative changes are identified within the thoracic spine. RAD/Chest 1 View (Portable) IMPRESSION: Cardiomegaly. CHF. Questionable pericardial effusion. Reading Location: [place] [id number]
[2025-02-15 08:58] LABS: Allen Test Positive; Base Excess -2 mmol/L (-2 to +2); FI02 4.0; PO2 95 mmHG (75-100); SITE L Radial; SO2 97 % (94-98)
[2025-02-15 09:07] LABS: Hematocrit 41.9 % (37-47); Hemoglobin 13.3 g/dL (12.0-15.0); Immature Granulocytes Count 0.060 X10^3/uL (0.0-0.0); Mean Corp Hgb Conc 31.7 g/dL (32-36); Mean Corpuscular Volume 87.8 fL (81-99); Mean Platelet Vol. 11.6 fl (6.2-12.0); NRBC Flagged by Analyzer 0 % (0-5); Platelet Count 278 K/mm3 (150-450); RBC Distribution Width CV 15.3 % (11.6-14.6); RBC Distribution Width SD 48.9 fl (35.1-43.9); Red Blood Count 4.77 M/mm3 (4.2-5.4); White Blood Count 12.0 K/mm3 (4.4-11.0)
[2025-02-15] MEDS: Furosemide 20 MG/2 ML VIAL IV (09:27)
[2025-02-15 09:36] LABS: Anion Gap 13 (5-15); BUN 18 mg/dL (4-19); BUN/Creat Ratio 16.1 RATIO (10-20); Calcium,Total 9.3 mg/dL (7.6-11.0); Carbon Dioxide 23.5 mmol/L (21.0-32.0); Chloride 102 mmol/L (98-108); Estimated Creatinine Clearance 40.73 ml/min (50-250); Glucose 158 mg/dL (70-99); Potassium 3.7 mmol/L (3.3-5.1); Pro- Brain NATRIURETIC PEPTIDE 4900 pg/mL (<=1800); Troponin T High Sensitivity 33 ng/L (<=14)
[2025-02-15] MEDS: 0.9% Saline Lock 10 ML Syringe IV (11:38)
[2025-02-15 11:51] LABS: Troponin T High Sens 2 HR 31 ng/L (<=14)
[2025-02-15 13:30] LABS: Troponin T High Sens 4 HR 32 ng/L (<=14)
--- NOTE | 2025-02-15 16:05 | PCM.HP.STD ---
[facility] - General General Date of Admission: 02/15/25 HPI Narrative FRANK ODONNELL, is a 84 F who presents to the hospital with increasing shortness of breath and dyspnea on exertion. She also has history of orthopnea. She has noticed increased shortness of breath and dyspnea on exertion has been slowly worsening over the last couple of days to weeks. She has not been able to lay flat because of shortness of breath and she does have a history of aortic valve stenosis status post TAVR in 2017 now with increasing gradient and signs consistent with regurgitation. Next up on the outpatient side was to perform a CHRISTIAN which could be done on Tuesday if she has decent diuresis. She denies any chest pain and has not noticed any significant lower extremity edema. She is also noticed fluttering in her chest and recently had a Holter monitor on 02/06/2025 that was negative for any atrial fibrillation but she did have PVCs, PACs and had a right bundle branch block. [facility] Medical History Hypothyroidism Kidney disease Non-smoker CPAP (continuous positive airway pressure) dependence Sleep apnea Asthma Congestive heart failure (CHF) Hypertension Nonrheumatic aortic (valve) stenosis Atherosclerosis of coronary artery of [place] heart without angina pectoris Obesity Atherosclerotic heart disease of [place] coronary artery with unstable angina pectoris OPHELIA (obstructive sleep apnea) Essential hypertension Fatigue Family history of hypertension Exertional shortness of breath Exertional chest pain Dyspnea on exertion Dizziness and giddiness Hyperlipidemia Carotid bruit Diabetes mellitus Hypokalemia Home Medications ?Medication ?Instructions ?Recorded ?Last Taken ?Type albuterol sulfate 90 mcg/actuation 1 puff inhalation Q4H PRN PRN 08/06/16 Unknown History aerosol inhaler Asthma cholecalciferol (vitamin D3) 25 1,000 unit PO DAILY vitamin 08/06/16 09/04/24 History mcg (1,000 unit) tablet montelukast 10 mg tablet 10 mg PO DAILY allergies 08/06/16 09/04/24 History omega-3 fatty acids-fish oil 300 1 ea PO DAILY supplement 08/06/16 09/04/24 History mg-1,000 mg capsule vitamin A 2,400 mcg capsule 8,000 unit PO DAILY vitamin 08/06/16 09/04/24 History vitamin E mixed 1,000 unit capsule 1,000 unit PO DAILY vitamin 08/06/16 09/04/24 History aspirin 81 mg tablet,delayed 81 mg PO DAILY@0800 heart health 02/11/22 09/05/24 Rx release #90 tabs zinc gluconate 50 mg tablet 50 mg PO DAILY supplement 02/11/22 09/04/24 History ezetimibe 10 mg tablet (Zetia) 10 mg PO DAILY cholesterol #90 tabs 04/12/24 09/04/24 Rx cetirizine 10 mg tablet 10 mg PO QDAY PRN allergy symptoms 04/17/24 07/31/24 History magnesium 250 mg tablet 250 mg PO DAILY supplement 04/17/24 09/04/24 History diphenhydramine HCl 25 mg capsule 25 mg PO QHS PRN allergic reaction 07/05/24 07/31/24 History (Benadryl) fluticasone propionate 50 2 spray intranasal DAILY PRN 07/05/24 08/01/24 History mcg/actuation nasal allergy symptoms spray,suspension (Flonase Allergy Relief) levothyroxine 137 mcg tablet 137 mcg PO QDAY thyroid 07/05/24 09/05/24 History (Synthroid) turmeric root extract 500 mg 500 mg PO QDAY supplement 07/05/24 09/04/24 History capsule fluticasone propionate 115 2 puff inhalation BID breathing 08/01/24 09/04/24 History mcg-salmeterol 21 mcg/actuation HFA inhaler (Advair HFA) rosuvastatin 5 mg tablet 5 mg PO .twice a week cholesterol 09/20/24 Unknown History coenzyme Q10 30 mg capsule 30 mg PO QDAY 11/14/24 Unknown History amlodipine 5 mg tablet 5 mg PO QDAY #90 tabs 01/10/25 Unknown Rx furosemide 40 mg tablet (Lasix) 40 mg PO .COMPLEX #180 tabs 01/24/25 Unknown Rx carvedilol 12.5 mg tablet 12.5 mg PO BIDCM #180 tabs 02/11/25 Unknown Rx multivitamin (Daily Multi-Vitamin 1 tab PO DAILY health 02/15/25 Unknown History tablet) potassium chloride 20 mEq 20 meq PO BID 02/15/25 Unknown History tablet,extended release(part/cryst) (Klor-Con M) Allergy/AdvReac Type Severity Reaction Status Date / Time Environmental Allergies: Allergy Anaphylaxis Verified 02/15/25 08:39 Uncoded rosuvastatin (From Crestor) AdvReac Intermediate Myalgias Verified 02/15/25 08:39 atorvastatin (From Lipitor) AdvReac Mild Other Verified 02/15/25 08:39 nifedipine AdvReac Unknown Verified 02/15/25 08:39 simvastatin (From Zocor) AdvReac Myalgias Verified 02/15/25 08:39 Family History Father , age 70 Colon cancer Mother , age 67 CAD (coronary artery disease) Hypertension Brother , age 59 CAD (coronary artery disease) Hypertension Brother Hypertension Diabetes Other Family history of hypertension Surgical History History of left heart catheterization (08/09/16) History of parathyroid surgery (02/2002) History of tubal ligation History of cholecystectomy H/O aortic valve replacement (12/22/16) Social History Smoking Status: Never smoker alcohol intake: never substance use type: does not use caffeine: Yes Type: tea Number of servings: 2 what type of physical activity do you participate in: walking frequency: 3-4 times per week duration: 15-30 minutes/day seatbelt use: always do you feel safe at home: Yes ROS Constitutional Constitutional: Denies chills, fatigue, fever(s) or malaise Eyes Eyes: Denies blurry vision ENT HEENT: Denies headache(s) or nasal discharge Cardiovascular Cardiovascular: Reports palpitations; Denies chest pain, dyspnea on exertion or syncope Respiratory/Chest Respiratory/Chest: Reports shortness of breath at rest and shortness of breath with exertion; Denies cough Gastrointestinal Gastrointestinal: Denies constipation, diarrhea, nausea or vomiting Genitourinary Genitourinary: Denies dysuria Neurologic Neurologic: Denies focal weakness, numbness or tremor(s) Psychiatric Psychiatric: Denies anxiety or depression Vital Signs Vital Signs Vital Signs: 02/15/25 08:34 02/15/25 08:38 02/15/25 08:42 Temperature 97.6 F L 97.6 F L Temperature Source Temporal Temporal Pulse Rate 109 H 109 H Respiratory Rate 34 H 34 H Respiratory Effort Short of Breath Labored Accessory Muscle Use Respiratory Depth Respiratory Pattern Tachypnea Blood Pressure 205/65 H Blood Pressure Mean 111 Blood Pressure Source Blood Pressure Position Blood Pressure Location Pulse Ox 81 81 Oxygen Delivery Method Nasal Cannula Nasal Cannula Oxygen Flow Rate (L/min) 3 3 Fraction of Inspired Oxygen (FIO2) 02/15/25 08:42 02/15/25 08:46 02/15/25 08:48 Temperature Temperature Source Pulse Rate 112 H Respiratory Rate 28 H Respiratory Effort Respiratory Depth Respiratory Pattern Blood Pressure 205/65 H Blood Pressure Mean 111 Blood Pressure Source Blood Pressure Position Blood Pressure Location Pulse Ox 95 98 Oxygen Delivery Method Bi-pap Oxygen Flow Rate (L/min) Fraction of Inspired Oxygen (FIO2) 50 50 02/15/25 08:51 02/15/25 09:20 02/15/25 09:40 Temperature Temperature Source Pulse Rate 92 78 Respiratory Rate 21 H 20 H Respiratory Effort Respiratory Depth Respiratory Pattern Blood Pressure 205/65 H Blood Pressure Mean 111 Blood Pressure Source Blood Pressure Position Blood Pressure Location Pulse Ox 98 Oxygen Delivery Method Bi-pap Oxygen Flow Rate (L/min) Fraction of Inspired Oxygen (FIO2) 50 30 02/15/25 10:18 02/15/25 10:39 02/15/25 10:39 Temperature 97.9 F 97.9 F Temperature Source Axillary Pulse Rate 75 77 Respiratory Rate 24 H 24 H Respiratory Effort Respiratory Depth Respiratory Pattern Blood Pressure 135/44 H 137/44 H Blood Pressure Mean 74 75 Blood Pressure Source Blood Pressure Position Blood Pressure Location Pulse Ox 95 93 93 Oxygen Delivery Method CPAP Nasal Cannula Oxygen Flow Rate (L/min) 2 Fraction of Inspired Oxygen (FIO2) 50 02/15/25 10:48 02/15/25 11:00 02/15/25 11:06 Temperature 96.4 F L 96.5 F L Temperature Source Temporal Temporal Pulse Rate 77 77 Respiratory Rate 24 H 24 H Respiratory Effort Short of Breath Labored Respiratory Depth Shallow Respiratory Pattern Tachypnea Blood Pressure 145/48 H 158/54 H Blood Pressure Mean 80 88 Blood Pressure Source Blood Pressure Position Blood Pressure Location Pulse Ox 91 91 Oxygen Delivery Method Nasal Cannula Nasal Cannula Nasal Cannula Oxygen Flow Rate (L/min) 3 3 Fraction of Inspired Oxygen (FIO2) 02/15/25 11:18 02/15/25 11:23 02/15/25 11:48 Temperature 96.4 F L Temperature Source Temporal Pulse Rate 80 105 H 73 Respiratory Rate 24 H 22 H Respiratory Effort Respiratory Depth Respiratory Pattern Tachypnea Blood Pressure 145/54 H Blood Pressure Mean 84 Blood Pressure Source Monitor Blood Pressure Position Semi-Fowlers Blood Pressure Location Left Arm Pulse Ox 94 96 Oxygen Delivery Method Bi-pap Oxygen Flow Rate (L/min) Fraction of Inspired Oxygen (FIO2) 30 30 02/15/25 12:35 02/15/25 13:48 02/15/25 14:19 Temperature 97.9 F 97.8 F Temperature Source Axillary Oral Pulse Rate 73 83 Respiratory Rate 24 H 24 H Respiratory Effort Short of Breath Labored Respiratory Depth Shallow Respiratory Pattern Tachypnea Blood Pressure 153/56 H 150/42 H Blood Pressure Mean 88 78 Blood Pressure Source Monitor Monitor Blood Pressure Position Semi-Fowlers Semi-Fowlers Blood Pressure Location Left Arm Left Arm Pulse Ox 93 92 Oxygen Delivery Method Bi-pap Nasal Cannula Nasal Cannula Oxygen Flow Rate (L/min) 3 3 Fraction of Inspired Oxygen (FIO2) 30 Weight Weight: 202 lb 9.677 oz Body Mass Index (BMI) 40.2 Physical Exam Narrative General: Alert, Oriented x3, Cooperative, No apparent distress HEENT: Atraumatic, PERRLA, EOMI, Normocephalic Oral: Moist Mucosa Neck: Supple, No JVD Lungs: Diminished, Normal air movement, No rhonchi, No wheeze, slight rales Cardiovascular: Regular rate, Regular Rhythm, Normal S1, Normal S2, No murmurs Abdomen: Soft, Non Tender, Non-Distended, No Hepato-splenomegaly Extremities: Nonpitting edema, Capillary Refill Less than 3 Seconds Skin: No rashes, No breakdown Musculoskeletal: No Tenderness to Palpation of Joints or Extremities Neurological: No focal neurological deficits, moves all extremities Psych/Mental Status: Normal Affect, Appropriate Results Lab / Micro Data 02/15/25 08:40 02/15/25 08:40 Labs: Laboratory Results - last 24 hr 02/15/25 08:40: WBC 12.0 H, RBC 4.77, Hgb 13.3, Hct 41.9, MCV 87.8, MCH 27.9, MCHC 31.7 L, RDW Std Deviation 48.9 H, RDW Coeff of Judson 15.3 H, Plt Count 278, MPV 11.6, Immature Gran % (Auto) 0.500, Neut % (Auto) 78.3 H, Lymph % (Auto) 12.2 L, [place] % (Auto) 7.5, Eos % (Auto) 1.0, Baso % (Auto) 0.5, Absolute Neuts (auto) 9.4 H, Absolute Lymphs (auto) 1.46, Nucleated RBC % 0, Sodium 138, Potassium 3.7, Chloride 102, Carbon Dioxide 23.5, Anion Gap 13, BUN 18, Creatinine 1.11, Estim Creat Clear Calc 40.73 L, Est GFR (MDRD) Non-Af 50 L, BUN/Creatinine Ratio 16.1, Glucose 158 H, Calcium 9.3, Troponin T High Sens 33 H, NT pro BNP II 4900 H 02/15/25 11:15: Troponin T Hi Sens 2 Hr 31 H 02/15/25 12:42: Troponin T Hi Sens 4Hr 32 H ABG Data ABG results: ABG 02/15/25 08:55 Specimen Type ART Sample Site L Radial pH 7.35 Bicarbonate Actual 24.0 Total CO2 25 Base Excess -2 O2 Saturation 97 O2 % 4.0 ABG pCO2 43.8 ABG pO2 95 Alcides Test Positive O2 Delivery Device Cannula Vent Mode Not entered Rhythm Strip Rhythm Strip: Sinus Tach Rate: 109 Ectopy: None Imaging Radiology Impression Chest X-Ray 02/15/25 08:57 IMPRESSION: Cardiomegaly. CHF. Questionable pericardial effusion. Reading Location: [facility] Assessment & Plan Assessment/Plan (1) Hypoxia: PLAN: Plan 1. Acute hypoxic respiratory sufficiency secondary to acute on chronic diastolic CHF/aortic stenosis status post TAVR/aortic regurgitation/essential HTN/HLD ? Continue with IV diuresis ? If improved respiratory status may proceed with a CHRISTIAN on Tuesday versus doing as an outpatient ? Continue with her home blood pressure medications ? Continue with her aspirin ? Echo from 08/01/2024 with the EF of 55 to 60% and aortic mean pressure gradient of 16.5 mmHg and moderate aortic regurgitation ? She was having palpitations and recently had a Holter on 02/06/2025 that was read as no A-fib with right bundle branch block, PVCs, and rare PACs, will continue with her Coreg ? Continue Zetia and twice weekly Crestor due to myalgias from simvastatin ? That she does have a little bit of a leukocytosis though no fevers and nothing on x-rays will monitor she is not complaining of any dysuria but if no improvement tomorrow may benefit from a urine analysis ? Troponins are slightly elevated and are of no significance ? Pro BNP was elevated to 4900 2. Asthma ? Continue with her home inhalers ? Continue with her Singulair ? Stable not in exacerbation 3. Hypothyroidism ? Stable ? Continue with Synthroid ? Will obtain a TSH DVT: Lovenox 75 minutes was spent on direct patient care, including documentation as well as chart review and collaboration with colleagues Charges/Coding Visit Charges Inpatient E&M: 29497 Init Hosp L3
[2025-02-15] MEDS: Albuterol 2.5 MG/3 ML VIAL.NEB. INHALATION (20:21)
[2025-02-15] MEDS: Budesonide Respules 0.5 MG/2 ML AMPUL.NEB. INHALATION (20:21)
[2025-02-16] VITALS (12 sets, daily range): BP systolic 136–155; BP diastolic 39–52; PULSE 73–89; RESP 12–22; TEMP 36.2–36.7; O2SAT 92–96; BMI 40.4
[2025-02-16 05:11] LABS: Hematocrit 34.5 % (37-47); Hemoglobin 10.9 g/dL (12.0-15.0); Immature Granulocytes Count 0.020 X10^3/uL (0.0-0.0); Mean Corp Hgb Conc 31.6 g/dL (32-36); Mean Corpuscular Volume 88.2 fL (81-99); Mean Platelet Vol. 11.0 fl (6.2-12.0); NRBC Flagged by Analyzer 0 % (0-5); Platelet Count 209 K/mm3 (150-450); RBC Distribution Width CV 15.1 % (11.6-14.6); RBC Distribution Width SD 48.0 fl (35.1-43.9); Red Blood Count 3.91 M/mm3 (4.2-5.4); White Blood Count 6.4 K/mm3 (4.4-11.0)
[2025-02-16 05:34] LABS: Anion Gap 13 (5-15); BUN 19 mg/dL (4-19); BUN/Creat Ratio 16.0 RATIO (10-20); Calcium,Total 8.2 mg/dL (7.6-11.0); Carbon Dioxide 22.2 mmol/L (21.0-32.0); Chloride 106 mmol/L (98-108); Estimated Creatinine Clearance 36.67 ml/min (50-250); Glucose 112 mg/dL (70-99); Potassium 3.2 mmol/L (3.3-5.1)
[2025-02-16] MEDS: Budesonide Respules 0.5 MG/2 ML AMPUL.NEB. INHALATION ×2 (06:44→19:01)
[2025-02-16] MEDS: Albuterol 2.5 MG/3 ML VIAL.NEB. INHALATION ×3 (06:44→19:01)
--- NOTE | 2025-02-16 08:24 | PCM.PN.HOSP ---
Reason for Visit Chief Complaint: Shortness of breath Objective Data Objective Data Vital Signs: Vital Signs Temp Pulse Resp BP Pulse Ox O2 Del Method O2 Flow Rate 97.5 F L 89 20 H 155/52 H 92 Nasal Cannula 4 02/16/25 06:21 02/16/25 06:45 02/16/25 06:45 02/16/25 06:21 02/16/25 06:45 02/16/25 06:45 02/16/25 06:45 FiO2 30 02/16/25 03:15 Oxygen Flow Rate (L/min) 4 Oxygen Delivery Method Nasal Cannula Weight: 203 lb 11.314 oz Body Mass Index (BMI) 40.4 Intake & Output: Intake and Output for Last 24 Hours 02/14/25 02/15/25 02/16/25 23:59 23:59 23:59 Output Total 600 / 600 Balance -600 / -600 Lab / Micro Data 02/16/25 04:54 02/16/25 04:54 Labs: Laboratory Results - last 24 hr 02/15/25 08:40: WBC 12.0 H, RBC 4.77, Hgb 13.3, Hct 41.9, MCV 87.8, MCH 27.9, MCHC 31.7 L, RDW Std Deviation 48.9 H, RDW Coeff of Judson 15.3 H, Plt Count 278, MPV 11.6, Immature Gran % (Auto) 0.500, Neut % (Auto) 78.3 H, Lymph % (Auto) 12.2 L, [place] % (Auto) 7.5, Eos % (Auto) 1.0, Baso % (Auto) 0.5, Absolute Neuts (auto) 9.4 H, Absolute Lymphs (auto) 1.46, Nucleated RBC % 0, Sodium 138, Potassium 3.7, Chloride 102, Carbon Dioxide 23.5, Anion Gap 13, BUN 18, Creatinine 1.11, Estim Creat Clear Calc 40.73 L, Est GFR (MDRD) Non-Af 50 L, BUN/Creatinine Ratio 16.1, Glucose 158 H, Calcium 9.3, Troponin T High Sens 33 H, NT pro BNP II 4900 H 02/15/25 11:15: Troponin T Hi Sens 2 Hr 31 H 02/15/25 12:42: Troponin T Hi Sens 4Hr 32 H 02/15/25 12:45: TSH 0.298 L 02/16/25 04:54: WBC 6.4, RBC 3.91 L, Hgb 10.9 L, Hct 34.5 L, MCV 88.2, MCH 27.9, MCHC 31.6 L, RDW Std Deviation 48.0 H, RDW Coeff of Judson 15.1 H, Plt Count 209, MPV 11.0, Immature Gran % (Auto) 0.300, Neut % (Auto) 68.9, Lymph % (Auto) 17.6 L, [place] % (Auto) 11.2 H, Eos % (Auto) 1.4, Baso % (Auto) 0.6, Absolute Neuts (auto) 4.4, Absolute Lymphs (auto) 1.13, Nucleated RBC % 0, Sodium 141, Potassium 3.2 L, Chloride 106, Carbon Dioxide 22.2, Anion Gap 13, BUN 19, Creatinine 1.20, Estim Creat Clear Calc 36.67 L, Est GFR (MDRD) Non-Af 45 L, BUN/Creatinine Ratio 16.0, Glucose 112 H, Calcium 8.2 ABG Data ABG results: ABG 02/15/25 08:55 Specimen Type ART Sample Site L Radial pH 7.35 Bicarbonate Actual 24.0 Total CO2 25 Base Excess -2 O2 Saturation 97 O2 % 4.0 ABG pCO2 43.8 ABG pO2 95 Alcides Test Positive O2 Delivery Device Cannula Vent Mode Not entered Radiography Diagnostic Testing: Radiology Impression Chest X-Ray 02/15/25 08:57 IMPRESSION: Cardiomegaly. CHF. Questionable pericardial effusion. Reading Location: [place] [address] Rhythm Strip Rhythm Strip: Sinus Tach Rate: 109 Ectopy: None Physical Exam Narrative Seen and examined Patient shortness of breath is better compared to yesterday. She had TAVR in 2017. Scheduled for CHRISTIAN on Tuesday Physical exam General: Alert, Oriented x3, Cooperative. BMI 40.5 kg/m? HEENT: Atraumatic, PERRLA, EOMI, Normocephalic. Oral: No Gingival or Mucosal Lesions/ Ulcerations Neck: Supple, No JVD, Negative Carotid Bruits Chest wall/Lungs: Air entry diminished in bilateral lung bases. No crepitation/rhonchi Cardiovascular: Regular rate and rhythm, systolic murmur. No radiation to carotids Abdomen: Bowel Sounds Present, Soft, Non Tender, Non-Distended : No dysuria. No renal angle tenderness. No suprapubic tenderness. Extremities: Mild edema, John wrap bandage Skin: No rashes, No breakdown Musculoskeletal: No Tenderness to Palpation of Joints or Extremities Neurological: Cranial nerves II-XII grossly intact, DTR 2+/4. No acute focal neurological deficit. Psych/Mental Status: Normal Affect, Appropriate. Assessment & Plan Assessment/Plan (1) Hypoxia: PLAN: Plan 84-year-old female admitted with increased shortness of breath for past few days with palpitation, worse with exertion. She also has nonproductive cough. 1. Acute hypoxic respiratory sufficiency secondary to acute on chronic diastolic CHF/aortic stenosis status post TAVR/aortic regurgitation ? Continue with IV diuresis, furosemide 40 mg IV twice daily ? If improved respiratory status may proceed with a CHRISTIAN on Tuesday versus doing as an outpatient ? Continue with her home blood pressure medications ? Continue with her aspirin ? Echo from 08/01/2024 with the EF of 55 to 60% and aortic mean pressure gradient of 16.5 mmHg and moderate aortic regurgitation ? She was having palpitations and recently had a Holter on 02/06/2025. It was found that no A-fib with right bundle branch block, PVCs, and rare PACs, continue with her Coreg ? Continue Zetia and twice weekly Crestor due to myalgias from simvastatin ? Leukocytosis resolved. It was probably reactive. ? Troponins are slightly elevated and are of no significance. Currently she does not have chest pain. ? Pro BNP was elevated to 4900 2. Essential hypertension: Blood pressure is controlled. 148/52 3. Dyslipidemia: Patient on rosuvastatin and Zetia 4 asthma ? Continue with her home inhalers ? Continue with her Singulair ? Stable not in exacerbation 5. Hypothyroidism ? Continue with Synthroid ? Will obtain a TSH DVT: Lovenox 2D echo on 08/01/2024 Interpretation Summary The estimated ejection fraction is 55-60 %. Bioprosthetic aortic valve With mild aortic stenosis mean pressure gradient of 16.5 mmHg Color-flow and Doppler revealed moderate aortic regurgitation Mild MR Trivial tricuspid regurgitation. Charges/Coding Visit Charges Inpatient E&M: 14503 Subs Hosp L2
[2025-02-16] MEDS: Aspirin E.C. 81 MG Tablet PO (09:34)
[2025-02-16] MEDS: 0.9% Saline Lock 10 ML Syringe IV ×2 (09:35→17:33)
--- NOTE | 2025-02-16 12:47 | CASEMGMT ---
CARIN VERNON Assessment Face to Face with patient for initial transition planning/care coordination assessment. CARIN VERNON introduced self and role at [facility], pt voices understanding. Pt is A&Ox4 and is resting comfortably in bed and is calm. Pt's dtr at the bedside. Care providers, pharmacy, and demographics verified. Admitting dx: CHF LACE Strata: 2 PCP: Alejandra Randhawa Specialists: Jason CASEY (Pulmonary), Endocrinology through [facility] Preferred Pharmacy: [facility] Insurance: [facility] Prescription Benefit: Yes LNOK: Bob (Son)Christa (Dtr) Living Arrangements: Pt lives alone in a single story condo with 2 steps to enter ADLs/IADLs: Pt states that she is indep. Current 6-Click score is 18 and PT is pending Transportation: Self, family. Denies concerns DME: Home oxygen through [employer]. TC to [employer] but unable to verify pt's current oxygen orders d/t their offices being closed. Pt states that she has a concentrator, portable tanks (Dtr can bring in @ [place]), and a pulse ox. Pt states that she wears her oxygen at night through her CPAP @ 2L. Pt states that she does not wear during the day. Per chart review, pt's previous order was for 2L w/ exertion. Green sheet placed on the pts chart and [place] Checklist intervention completed for oxygen testing if the pt were to [place] over the weekend. Pt also states that she has a tub bench, Cane, FWW, Rollator, and a scale to weigh herself with regarding her CHF. HHC/SNF: denies hx or needs Pt?s goal: Home Plan: Home, follow for oxygen needs. Pt denies the need for HH, OP Tx, or SNF. Pt states that she has plenty of support at home through her family, friends, and neighbors. Pt states that she feels safe with this plan and denies any further questions or concerns at this time. Earlene Hopkins RN, CM
--- NOTE | 2025-02-16 20:47 | PCM.HOSP.N ---
Hospitalist Note Potassium found to be 3.2 with no replacement given today. Pt has difficulty tolerating PO potassium. Ordered 40 liquid PO K+ x 1, check mag.
[2025-02-16] MEDS: Potassium Chloride Oral Soln 20 MEQ/15 ML UDC 40 MEQ PO (20:49)
[2025-02-16 23:51] LABS: Magnesium 2.2 mg/dL (1.5-2.2)
[2025-02-17] VITALS (8 sets, daily range): BP systolic 130–147; BP diastolic 38–42; PULSE 70–79; RESP 12–20; TEMP 36.3–36.8; O2SAT 93–97; BMI 40.4
[2025-02-17 04:43] LABS: Hematocrit 34.9 % (37-47); Hemoglobin 11.4 g/dL (12.0-15.0); Immature Granulocytes Count 0.020 X10^3/uL (0.0-0.0); Mean Corp Hgb Conc 32.7 g/dL (32-36); Mean Corpuscular Volume 87.0 fL (81-99); Mean Platelet Vol. 11.2 fl (6.2-12.0); NRBC Flagged by Analyzer 0 % (0-5); Platelet Count 226 K/mm3 (150-450); RBC Distribution Width CV 15.3 % (11.6-14.6); RBC Distribution Width SD 48.5 fl (35.1-43.9); Red Blood Count 4.01 M/mm3 (4.2-5.4); White Blood Count 7.4 K/mm3 (4.4-11.0)
[2025-02-17 05:04] LABS: Anion Gap 12 (5-15); BUN 21 mg/dL (4-19); BUN/Creat Ratio 16.6 RATIO (10-20); Calcium,Total 8.5 mg/dL (7.6-11.0); Carbon Dioxide 22.9 mmol/L (21.0-32.0); Chloride 107 mmol/L (98-108); Estimated Creatinine Clearance 34.38 ml/min (50-250); Glucose 122 mg/dL (70-99); Potassium 4.2 mmol/L (3.3-5.1)
[2025-02-17] MEDS: Budesonide Respules 0.5 MG/2 ML AMPUL.NEB. INHALATION ×2 (06:40→20:03)
[2025-02-17] MEDS: Albuterol 2.5 MG/3 ML VIAL.NEB. INHALATION ×2 (06:40→20:03)
--- NOTE | 2025-02-17 08:31 | PCM.PN.HOSP ---
Reason for Visit Chief Complaint: Shortness of breath Objective Data Objective Data Vital Signs: Vital Signs Temp Pulse Resp BP Pulse Ox O2 Del Method O2 Flow Rate 98.3 F 79 18 141/38 H 93 Nasal Cannula 2 02/17/25 03:06 02/17/25 06:41 02/17/25 06:41 02/17/25 03:06 02/17/25 06:41 02/17/25 06:41 02/17/25 06:41 FiO2 35 02/17/25 03:00 Oxygen Flow Rate (L/min) 2 Oxygen Delivery Method Nasal Cannula Weight: 203 lb 11.314 oz Body Mass Index (BMI) 40.4 Intake & Output: Intake and Output for Last 24 Hours 02/15/25 02/16/25 02/17/25 23:59 23:59 23:59 Output Total 600 / 600 250 / 250 Balance -600 / -600 -250 / -250 Lab / Micro Data 02/17/25 04:08 02/17/25 04:08 Labs: Laboratory Results - last 24 hr 02/16/25 04:54: Magnesium 2.2 02/17/25 04:08: WBC 7.4, RBC 4.01 L, Hgb 11.4 L, Hct 34.9 L, MCV 87.0, MCH 28.4, MCHC 32.7, RDW Std Deviation 48.5 H, RDW Coeff of Judson 15.3 H, Plt Count 226, MPV 11.2, Immature Gran % (Auto) 0.300, Neut % (Auto) 73.4 H, Lymph % (Auto) 12.9 L, [place] % (Auto) 11.2 H, Eos % (Auto) 1.8, Baso % (Auto) 0.4, Absolute Neuts (auto) 5.4, Absolute Lymphs (auto) 0.95, Nucleated RBC % 0, Sodium 141, Potassium 4.2, Chloride 107, Carbon Dioxide 22.9, Anion Gap 12, BUN 21 H, Creatinine 1.28 H, Estim Creat Clear Calc 34.38 L, Est GFR (MDRD) Non-Af 42 L, BUN/Creatinine Ratio 16.6, Glucose 122 H, Calcium 8.5 Rhythm Strip Rhythm Strip: Sinus Tach Rate: 109 Ectopy: None Physical Exam Narrative Seen and examined' Mild improvement in shortness of breath. She had TAVR in 2017. Scheduled for CHRISTIAN on Tuesday Physical exam General: Alert, Oriented x3, Cooperative. BMI 40.5 kg/m? HEENT: Atraumatic, PERRLA, EOMI, Normocephalic. Oral: No Gingival or Mucosal Lesions/ Ulcerations Neck: Supple, No JVD, Negative Carotid Bruits Chest wall/Lungs: Air entry diminished in bilateral lung bases. No crepitation/rhonchi Cardiovascular: Regular rate and rhythm, early diastolic murmur. No radiation to carotids Abdomen: Bowel Sounds Present, Soft, Non Tender, Non-Distended : No dysuria. No renal angle tenderness. No suprapubic tenderness. Extremities: Mild edema, John wrap bandage Skin: No rashes, No breakdown Musculoskeletal: No Tenderness to Palpation of Joints or Extremities Neurological: Cranial nerves II-XII grossly intact, DTR 2+/4. No acute focal neurological deficit. Psych/Mental Status: Normal Affect, Appropriate. Assessment & Plan Assessment/Plan (1) Hypoxia: PLAN: Plan 84-year-old female admitted with increased shortness of breath for past few days with palpitation, worse with exertion. She also has nonproductive cough. 1. Acute hypoxic respiratory sufficiency secondary to acute on chronic diastolic CHF/aortic stenosis status post TAVR/aortic regurgitation ? Continue with IV diuresis, furosemide 40 mg IV twice daily ? If improved respiratory status may proceed with a CHRISTIAN on Tuesday versus doing as an outpatient ? Continue with her home blood pressure medications ? Continue with her aspirin ? Echo from 08/01/2024 with the EF of 55 to 60% and aortic mean pressure gradient of 16.5 mmHg and moderate aortic regurgitation ? She was having palpitations and recently had a Holter on 02/06/2025. It was found that no A-fib with right bundle branch block, PVCs, and rare PACs, continue with her Coreg ? Continue Zetia and twice weekly Crestor due to myalgias from simvastatin ? Leukocytosis resolved. It was probably reactive. ? Troponins are slightly elevated and are of no significance. Currently she does not have chest pain. ? Pro BNP was elevated to 4900 02/17: Improvement in shortness of breath. Leg edema better. Has aortic incompetence. Plan for CHRISTIAN tomorrow. N.p.o. past midnight. Heart rate and blood pressure controlled. On 2 L of oxygen. Continue incentive spirometry. Serum magnesium 2.2. 2. Essential hypertension: Blood pressure is controlled. 148/52 3. Dyslipidemia: Patient on rosuvastatin and Zetia 4 asthma ? Continue with her home inhalers ? Continue with her Singulair ? Stable not in exacerbation 5. Hypothyroidism ? TSH 0.298, over suppressed 02/17: Decreased levothyroxine dose to 125 mcg daily DVT: Lovenox 2D echo on 08/01/2024 Interpretation Summary The estimated ejection fraction is 55-60 %. Bioprosthetic aortic valve With mild aortic stenosis mean pressure gradient of 16.5 mmHg Color-flow and Doppler revealed moderate aortic regurgitation Mild MR Trivial tricuspid regurgitation. Charges/Coding Visit Charges Inpatient E&M: 67964 Subs Hosp L2
[2025-02-17] MEDS: Aspirin E.C. 81 MG Tablet PO (10:11)
[2025-02-17] MEDS: 0.9% Saline Lock 10 ML Syringe IV ×2 (10:11→18:13)
[2025-02-18 02:18] VITALS: RESP 12
[2025-02-18 03:09] VITALS: BP 144/41; PULSE 77; RESP 18; TEMP 36.3; O2SAT 96
[2025-02-18 04:23] LABS: Hematocrit 33.5 % (37-47); Hemoglobin 11.2 g/dL (12.0-15.0); Immature Granulocytes Count 0.010 X10^3/uL (0.0-0.0); Mean Corp Hgb Conc 33.4 g/dL (32-36); Mean Corpuscular Volume 87.7 fL (81-99); Mean Platelet Vol. 10.9 fl (6.2-12.0); NRBC Flagged by Analyzer 0 % (0-5); Platelet Count 204 K/mm3 (150-450); RBC Distribution Width CV 15.4 % (11.6-14.6); RBC Distribution Width SD 48.8 fl (35.1-43.9); Red Blood Count 3.82 M/mm3 (4.2-5.4); White Blood Count 6.1 K/mm3 (4.4-11.0)
[2025-02-18 04:48] LABS: Anion Gap 12 (5-15); BUN 23 mg/dL (4-19); BUN/Creat Ratio 17.2 RATIO (10-20); Calcium,Total 8.4 mg/dL (7.6-11.0); Carbon Dioxide 23.1 mmol/L (21.0-32.0); Chloride 105 mmol/L (98-108); Estimated Creatinine Clearance 33.33 ml/min (50-250); Glucose 112 mg/dL (70-99); Potassium 3.5 mmol/L (3.3-5.1)
[2025-02-18 05:51] VITALS: BMI 40.2
[2025-02-18 06:58] VITALS: PULSE 74; RESP 19; O2SAT 96
[2025-02-18] MEDS: Budesonide Respules 0.5 MG/2 ML AMPUL.NEB. INHALATION (06:58)
[2025-02-18] MEDS: Albuterol 2.5 MG/3 ML VIAL.NEB. INHALATION (06:58)
--- NOTE | 2025-02-18 08:22 | DCINST_ITS ---
Discharge Instructions Follow Up Care Test Results: Test results from this visit will be discussed in further detail at your follow- up appointment, if applicable. Discharge Plan Admission Admit Date/Time: 02/15/25 09:54 Attending Provider: Joseph Beard Primary Care Provider: Alejandra Randhawa Consulting Providers: Nikita Drake Discharge Orders/Prescriptions Prescriptions: No Action zinc gluconate 50 mg tablet 50 mg PO DAILY aspirin 81 mg tablet,delayed release (DR/EC) 81 mg PO DAILY@0800 Qty: 90 3RF magnesium 250 mg tablet 250 mg PO DAILY cetirizine 10 mg tablet 10 mg PO QDAY PRN (Reason: allergy symptoms) fluticasone propionate [Flonase Allergy Relief] 50 mcg/actuation spray,suspension 2 spray intranasal DAILY PRN (Reason: allergy symptoms) Rx Instructions: administer into each nostril levothyroxine [Synthroid] 137 mcg tablet 137 mcg PO QDAY Rx Instructions: Take 1 tab daily, add 1/2 tab on Sundays turmeric root extract 500 mg capsule 500 mg PO QDAY diphenhydramine HCl [Benadryl] 25 mg capsule 25 mg PO QHS PRN (Reason: allergic reaction) coenzyme Q10 30 mg capsule 30 mg PO QDAY rosuvastatin 5 mg tablet 5 mg PO .twice a week Rx Instructions: ONLY TAKE ON TUESDAY AND TUESDAY amlodipine 5 mg tablet
--- NOTE | 2025-02-18 08:22 | PCM.DC ---
Discharge Instructions DC O2, CPAP, BIPAP needs Home O2 Discharge instructions: Yes Type of respiratory needs?: Oxygen Oxygen frequency: Continuous Continuous oxygen liters per minute: 2 Dressing / Incision Discharge Activity: Return to Normal Activity Weight Bearing Status: Weight bearing as tolerated Dressing / Incision Call your doctor if you observe: Fever of 101 or Higher, Coldness, Increased Pain, Numbness or Tingling, Change in Color, Inability to urinate, Inability to have a bowel movement, Shortness of breath, Dizziness, Fainting spells, Swelling in the ankles, Chest pain, Prolonged hiccupping, Increased palpitations (irregular heartbeat) and Calf discomfort Follow Up Care When: IN 2 WEEKS Test Results: Test results from this visit will be discussed in further detail at your follow-up appointment, if applicable. Discharge Plan Admission Admit Date/Time: 02/15/25 09:54 Attending Provider: Joseph Beard Primary Care Provider: Alejandra Randhawa Consulting Providers: Nikita Drake Instructions Additional Instructions / Restrictions: Furosemide dose increased to 60 mg twice daily. Echo lab, [place] [facility] will call her to schedule CHRISTIAN as an outpatient. Discharge Orders/Prescriptions Prescriptions: New levothyroxine 125 mcg Tablet 125 mcg PO DAILY@0600 30 Days Qty: 30 2RF Continued zinc gluconate 50 mg tablet 50 mg PO DAILY aspirin 81 mg tablet,delayed release (DR/EC) 81 mg PO DAILY@0800 Qty: 90 3RF magnesium 250 mg tablet 250 mg PO DAILY cetirizine 10 mg tablet 10 mg PO QDAY PRN (Reason: allergy symptoms) fluticasone propionate [Flonase Allergy Relief] 50 mcg/actuation spray,suspension 2 spray intranasal DAILY PRN (Reason: allergy symptoms) Rx Instructions: administer into each nostril turmeric root extract 500 mg capsule 500 mg PO QDAY diphenhydramine HCl [Benadryl] 25 mg capsule 25 mg PO QHS PRN (Reason: allergic reaction) coenzyme Q10 30 mg capsule 30 mg PO QDAY rosuvastatin 5 mg tablet 5 mg PO .twice a week Rx Instructions: ONLY TAKE ON TUESDAY AND TUESDAY amlodipine 5 mg tablet 5 mg PO QDAY Qty: 90 3RF carvedilol 12.5 mg tablet 12.5 mg PO BIDCM Qty: 180 3RF vitamin A 8,000 UNIT capsule 8,000 unit PO DAILY montelukast 10 MG tablet 10 mg PO DAILY Patient Comments: PT TAKES AT BEDTIME albuterol sulfate 1 PUFF inhaler 1 puff INHALATION Q4H PRN PRN (Reason: Asthma) cholecalciferol (vitamin D3) 1,000 UNIT tablet 1,000 unit PO DAILY omega-3 fatty acids-fish oil 1 EACH capsule 1 ea PO DAILY vitamin E mixed 1,000 UNIT capsule 1,000 unit PO DAILY fluticasone propion-salmeterol [Advair HFA] 115-21 mcg/actuation HFA aerosol inhaler 2 puff INHALATION BID potassium chloride [Klor-Con M20] 20 mEq tablet,ER particles/crystals 20 meq PO BID multivitamin [Daily Multi-Vitamin] Tablet 1 tab PO DAILY OXYGEN - Supplemental ([facility] INFORMATIONAL USE ONLY) Patient Comments: DME: [employer] 2L with exertion, and as needed per CM note CPAP - Continuous Positive Airway Pressure([facility] INFORMATIONAL USE ONLY) Patient Comments: DME: [employer] CPAP at night with 2L bleed in per CM note ezetimibe [Zetia] 10 mg tablet 10 mg PO DAILY Qty: 90 3RF Changed furosemide [Lasix] 40 mg tablet 40 mg PO BID Qty: 180 3RF Rx Instructions: 1.5 tablet (60 mg) twice daily Discontinued levothyroxine [Synthroid] 137 mcg tablet 137 mcg PO QDAY Rx Instructions: Take 1 tab daily, add 1/2 tab on Sundays Referrals / Follow Up: Reggie Olguin MD [Med Staff - Active Staff, Cardiology] - Within 2 Weeks Alejandra Randhawa MD [Primary Care Provider, Internal Medicine] Disposition Disposition (needs filled in before D/C Order can be placed): Home, Self Care
[2025-02-18] MEDS: Potassium Chloride 10mEq/100mL 10 MEQ/100 ML IV.SOLN. 100 MEQ IV BOLUS ×2 (09:22→11:06)
[2025-02-18] MEDS: 0.9% Saline Lock 10 ML Syringe IV ×2 (09:24→09:39)
[2025-02-18 09:26] VITALS: BP 144/31; PULSE 77; RESP 18; TEMP 36.5; O2SAT 95
[2025-02-18] MEDS: Aspirin E.C. 81 MG Tablet PO (09:31)
--- NOTE | 2025-02-18 10:58 | DS.PCM_ITS ---
Providers Date of Admission: 02/15/25 Date of Discharge: 02/18/25 Primary Care Physician: Dr. Alejandra Randhawa MD Reason For Visit: CHF Diagnosis Discharge Diagnosis (1) Hypoxia: Status: Acute Code(s): R09.02 - Hypoxemia Plan 84-year-old female admitted with increased shortness of breath for past few days with palpitation, worse with exertion. She also has nonproductive cough. 1. Acute hypoxic respiratory sufficiency secondary to acute on chronic diastolic CHF/aortic stenosis status post TAVR/aortic regurgitation ? Continue with IV diuresis, furosemide 40 mg IV twice daily ? If improved respiratory status may proceed with a CHRISTIAN on Tuesday versus doing as an outpatient ? Continue with her home blood pressure medications ? Continue with her aspirin ? Echo from 08/01/2024 with the EF of 55 to 60% and aortic mean pressure gradient of 16.5 mmHg and moderate aortic regurgitation ? She was having palpitations and recently had a Holter on 02/06/2025. It was found that no A-fib with right bundle branch block, PVCs, and rare PACs, continue with her Coreg ? Continue Zetia and twice weekly Crestor due to myalgias from simvastatin ? Leukocytosis resolved. It was probably reactive. ? Troponins are slightly elevated and are of no significance. Currently she does not have chest pain. ? Pro BNP was elevated to 4900 02/17: Improvement in shortness of breath. Leg edema better. Has aortic incompetence. Plan for CHRISTIAN tomorrow. N.p.o. past midnight. Heart rate and blood pressure controlled. On 2 L of oxygen. Continue incentive spirometry. Serum magnesium 2.2. 02/18: Patient is still on 2 L of oxygen. Home oxygen qualification test ordered. CHRISTIAN in the morning was canceled because of scheduling issues/operative reasons. Discussed with the echo lab and advised outpatient CHRISTIAN. Echo done will call the patient to schedule CHRISTIAN as an outpatient. Patient discharged on furosemide 60 mg oral twice daily. Continue rest of the medications. 2. Essential hypertension: Blood pressure is controlled. 148/52 3. Dyslipidemia: Patient on rosuvastatin and Zetia 4 asthma ? Continue with her home inhalers ? Continue with her Singulair ? Stable not in exacerbation 5. Hypothyroidism ? TSH 0.298, over suppressed 02/17: Decreased levothyroxine dose to 125 mcg daily 02/18: New prescription for levothyroxine 125 mcg daily given. DVT: Lovenox 2D echo on 08/01/2024 Interpretation Summary The estimated ejection fraction is 55-60 %. Bioprosthetic aortic valve With mild aortic stenosis mean pressure gradient of 16.5 mmHg Color-flow and Doppler revealed moderate aortic regurgitation Mild MR Trivial tricuspid regurgitation. Discharge medication reconciliation done. Discharge follow-up instructions completed. Discharge process discussed with the patient and all questions were answered to patient's satisfaction. Follow with PCP in 1 to 2 weeks Total time spent, exact 35 minutes on discharge meds reconciliation, examination, coordination of care with nurses and ancillary staff, review of imaging and blood test and discussion with the patient on follow-up instructions. Medications at Discharge Home Medications albuterol sulfate 90 mcg/actuation aerosol inhaler 1 puff inhalation Q4H PRN PRN Asthma 08/06/16 cholecalciferol (vitamin D3) 25 mcg (1,000 unit) tablet 1,000 unit PO DAILY vitamin 08/06/16 montelukast 10 mg tablet 10 mg PO DAILY allergies 08/06/16 omega-3 fatty acids-fish oil 300 mg-1,000 mg capsule 1 ea PO DAILY supplement 08/06/16 vitamin A 2,400 mcg capsule 8,000 unit PO DAILY vitamin 08/06/16 vitamin E mixed 1,000 unit capsule 1,000 unit PO DAILY vitamin 08/06/16 aspirin 81 mg tablet,delayed release 81 mg PO DAILY@0800 heart [facility] #90 tabs 02/11/22 zinc gluconate 50 mg tablet 50 mg PO DAILY supplement 02/11/22 ezetimibe 10 mg tablet (Zetia) 10 mg PO DAILY cholesterol #90 tabs 04/12/24 cetirizine 10 mg tablet 10 mg PO QDAY PRN allergy symptoms 04/17/24 magnesium 250 mg tablet 250 mg PO DAILY supplement 04/17/24 diphenhydramine HCl 25 mg capsule (Benadryl) 25 mg PO QHS PRN allergic reaction 07/05/24 fluticasone propionate 50 mcg/actuation nasal spray,suspension (Flonase Allergy Relief) 2 spray intranasal DAILY PRN allergy symptoms 07/05/24 turmeric root extract 500 mg capsule 500 mg PO QDAY supplement 07/05/24 fluticasone propionate 115 mcg-salmeterol 21 mcg/actuation HFA inhaler (Advair HFA) 2 puff inhalation BID breathing 08/01/24 rosuvastatin 5 mg tablet 5 mg PO .twice a week cholesterol 09/20/24 coenzyme Q10 30 mg capsule 30 mg PO QDAY 11/14/24 amlodipine 5 mg tablet 5 mg PO QDAY #90 tabs 01/10/25 carvedilol 12.5 mg tablet 12.5 mg PO BIDCM #180 tabs 02/11/25 multivitamin (Daily Multi-Vitamin tablet) 1 tab PO DAILY health 02/15/25 potassium chloride 20 mEq tablet,extended release(part/cryst) (Klor-Con M) 20 meq PO BID 02/15/25 CPAP - Continuous Positive Airway Pressure([facility] INFORMATIONAL USE ONLY) Pulmonary Information 02/18/25 OXYGEN - Supplemental ([facility] INFORMATIONAL USE ONLY) Pulmonary Information 02/18/25 furosemide 40 mg tablet (Lasix) 40 mg PO BID #180 tabs 02/18/25 levothyroxine 125 mcg tablet 125 mcg PO DAILY@0600 30 days #30 tabs 02/18/25 Physical Exam Narrative Seen and examined' Mild improvement in shortness of breath. No acute issues overnight. She had TAVR in 2017. CHRISTIAN canceled Physical exam General: Alert, Oriented x3, Cooperative. BMI 40.5 kg/m? HEENT: Atraumatic, PERRLA, EOMI, Normocephalic. Oral: No Gingival or Mucosal Lesions/ Ulcerations Neck: Supple, No JVD, Negative Carotid Bruits Chest wall/Lungs: Air entry diminished in bilateral lung bases. No crepitation/rhonchi Cardiovascular: Regular rate and rhythm, early diastolic murmur. No radiation to carotids Abdomen: Bowel Sounds Present, Soft, Non Tender, Non-Distended : No dysuria. No renal angle tenderness. No suprapubic tenderness. Extremities: Mild to minimal edema, John wrap bandage Skin: No rashes, No breakdown Musculoskeletal: No Tenderness to Palpation of Joints or Extremities Neurological: Cranial nerves II-XII grossly intact, DTR 2+/4. No acute focal neurological deficit. Psych/Mental Status: Normal Affect, Appropriate. Weight / BMI Weight Weight: 202 lb 13.204 oz Body Mass Index (BMI) 40.2 ABG / Lab / Microbiology Data 02/18/25 04:05 02/18/25 04:05 Laboratory: Laboratory Results - last 24 hr 02/18/25 04:05: WBC 6.1, RBC 3.82 L, Hgb 11.2 L, Hct 33.5 L, MCV 87.7, MCH 29.3, MCHC 33.4, RDW Std Deviation 48.8 H, RDW Coeff of Judson 15.4 H, Plt Count 204, MPV 10.9, Immature Gran % (Auto) 0.200, Neut % (Auto) 67.6, Lymph % (Auto) 17.8 L, [place] % (Auto) 11.2 H, Eos % (Auto) 2.5, Baso % (Auto) 0.7, Absolute Neuts (auto) 4.1, Absolute Lymphs (auto) 1.08, Nucleated RBC % 0, Sodium 140, Potassium 3.5, Chloride 105, Carbon Dioxide 23.1, Anion Gap 12, BUN 23 H, Creatinine 1.32 H, E stim Creat Clear Calc 33.33 L, Est GFR (MDRD) Non-Af 40 L, BUN/Creatinine Ratio 17.2, Glucose 112 H, Calcium 8.4 D/C Instructions Weight Bearing Status: Weight bearing as tolerated Call your doctor if you observe: Fever of 101 or Higher, Coldness, Increased Pain, Numbness or Tingling, Change in Color, Inability to urinate, Inability to have a bowel movement, Shortness of breath, Dizziness, Fainting spells, Swelling in the ankles, Chest pain, Prolonged hiccupping, Increased palpitations (irregular heartbeat) and Calf discomfort DC O2, CPAP, BIPAP Needs Home O2 Discharge instructions: Yes Type of respiratory needs?: Oxygen Oxygen frequency: Continuous Continuous oxygen liters per minute: 2 DC home with Oxygen: Yes Home O2 MD Review: I have reviewed the oxygen testing, and the patient qualifies for home oxygen equipment and portability. The patient is mobile in the home and the community. When: IN 2 WEEKS Meaningful Use Info Meaningful Use Meaningful Use Diagnoses (Choose all that apply): None applicable Discharge Plan Admission Admit Date/Time: 02/15/25 09:54 Attending Provider: Joseph Beard Primary Care Provider: Alejandra Randhawa Consulting Providers: Nikita Drake Instructions Additional Instructions / Restrictions: Furosemide dose increased to 60 mg twice daily. Echo lab, [place] [facility] will call her to schedule CHRISTIAN as an outpatient. Discharge Orders/Prescriptions Prescriptions: New levothyroxine 125 mcg Tablet 125 mcg PO DAILY@0600 30 Days Qty: 30 2RF Continued zinc gluconate 50 mg tablet 50 mg PO DAILY aspirin 81 mg tablet,delayed release (DR/EC) 81 mg PO DAILY@0800 Qty: 90 3RF magnesium 250 mg tablet 250 mg PO DAILY cetirizine 10 mg tablet 10 mg PO QDAY PRN (Reason: allergy symptoms) fluticasone propionate [Flonase Allergy Relief] 50 mcg/actuation spray,suspension 2 spray intranasal DAILY PRN (Reason: allergy symptoms) Rx Instructions: administer into each nostril turmeric root extract 500 mg capsule 500 mg PO QDAY diphenhydramine HCl [Benadryl] 25 mg capsule 25 mg PO QHS PRN (Reason: allergic reaction) coenzyme Q10 30 mg capsule 30 mg PO QDAY rosuvastatin 5 mg tablet 5 mg PO .twice a week Rx Instructions: ONLY TAKE ON TUESDAY AND TUESDAY amlodipine 5 mg tablet 5 mg PO QDAY Qty: 90 3RF carvedilol 12.5 mg tablet 12.5 mg PO BIDCM Qty: 180 3RF vitamin A 8,000 UNIT capsule 8,000 unit PO DAILY montelukast 10 MG tablet 10 mg PO DAILY Patient Comments: PT TAKES AT BEDTIME albuterol sulfate 1 PUFF inhaler 1 puff INHALATION Q4H PRN PRN (Reason: Asthma) cholecalciferol (vitamin D3) 1,000 UNIT tablet 1,000 unit PO DAILY omega-3 fatty acids-fish oil 1 EACH capsule 1 ea PO DAILY vitamin E mixed 1,000 UNIT capsule 1,000 unit PO DAILY fluticasone propion-salmeterol [Advair HFA] 115-21 mcg/actuation HFA aerosol inhaler 2 puff INHALATION BID potassium chloride [Klor-Con M20] 20 mEq tablet,ER particles/crystals 20 meq PO BID multivitamin [Daily Multi-Vitamin] Tablet 1 tab PO DAILY OXYGEN - Supplemental ([facility] INFORMATIONAL USE ONLY) Patient Comments: DME: [employer] 2L with exertion, and as needed per CM note CPAP - Continuous Positive Airway Pressure([facility] INFORMATIONAL USE ONLY) Patient Comments: DME: [employer] CPAP at night with 2L bleed in per CM note ezetimibe [Zetia] 10 mg tablet 10 mg PO DAILY Qty: 90 3RF Changed furosemide [Lasix] 40 mg tablet 40 mg PO BID Qty: 180 3RF Rx Instructions: 1.5 tablet (60 mg) twice daily Discontinued levothyroxine [Synthroid] 137 mcg tablet 137 mcg PO QDAY Rx Instructions: Take 1 tab daily, add 1/2 tab on Sundays Referrals / Follow Up: Reggie Olguin MD [Med Staff - Active Staff, Cardiology] - Within 2 Weeks Alejandra Randhawa MD [Primary Care Provider, Internal Medicine] Disposition Disposition (needs filled in before D/C Order can be placed): Home, Self Care Charges/Coding Visit Charges Inpatient E&M: 70040 Disch Hosp >30min
[2025-02-18 12:35] VITALS: O2SAT 91; O2SAT 92
[2025-02-18 12:37] VITALS: BP 144/31; PULSE 77; RESP 18; TEMP 36.5; O2SAT 95
--- NOTE | 2025-02-18 12:56 | CASEMGMT ---
Patient has order for discharge. RN CM in to discuss needs at discharge, daughter at bedside. Patient denies needs or help at discharge. Patient had no further questions or concerns.
== END 2025-02-18 13:45 | disposition home or self-care (01) | DRG 291 ==
LOC: ED 09:44 → PCU 10:27
PROVIDERS: Physician Assistant; Admitting Provider Family Medicine; Emergency Provider Emergency Medicine; PCP Internal Medicine; Visit Provider Internal Medicine
DX: I11.0 Hypertensive heart disease with heart failure (principal); I50.33 Acute on chronic diastolic (congestive) heart failure; E03.9 Hypothyroidism, unspecified; Z95.2 Presence of prosthetic heart valve; J45.909 Unspecified asthma, uncomplicated; E78.5 Hyperlipidemia, unspecified; I25.10 Atherosclerotic heart disease of native coronary artery without angina pectoris; I08.3 Combined rheumatic disorders of mitral, aortic and tricuspid valves; E87.6 Hypokalemia; I35.0 Nonrheumatic aortic (valve) stenosis; I45.10 Unspecified right bundle-branch block; I49.1 Atrial premature depolarization; I49.3 Ventricular premature depolarization; R09.02 Hypoxemia; Z79.51 Long term (current) use of inhaled steroids; Z79.82 Long term (current) use of aspirin; Z79.890 Hormone replacement therapy; Z79.899 Other long term (current) drug therapy
CPT/HCPCS: 36415; 36600; 71045; 80048; 82803; 83735; 83880; 84443; 84484; 85025; 93005; 94002; 94003; 94640; 94762; 97116; 97162; 97530; 99285; A4216; J1938

== ENCOUNTER → 2025-02-19 | Outpatient (CLI) | payer MEDICARE, SELFPAY ==
--- NOTE | 2025-02-19 10:52 | ECHOTEE_ITS ---
Reason For Study Reason For Study: Aortic Insufficiency Medication CHRISTIAN probe 6VT-D (SN [id number]) passed without difficulty. No complications were noted. Cetacaine Topical [place] given X3 orally. Versed 1 mg given slow IVP. Fentanyl 50 mcg given slow IVP. Left Ventricle Normal LV size. The left ventricular ejection fraction is 45 %. No regional wall motion abnormalities noted. Right Ventricle Normal RV size. Normal systolic function. Atria Normal atrial septum. The left atrium is moderately enlarged. No thrombus is detected in the left atrial appendage. Mitral Valve Normal mitral valve. Mild-Moderate (1-2+) eccentric mitral valve insufficiency. Tricuspid Valve Normal tricuspid valve. Aortic Valve Severe (4+) aortic valve insufficiency. Holo diastolic aortic flow reversal. Bioprosthetic aortic valve. Pulmonic Valve Normal pulmonic valve. Vessels Normal aortic root. Pericardium No pericardial effusion. Doppler Measurements & Calculations Ao V2 max: 239.2 cm/sec AI max dada: 346.7 cm/sec Ao max P.9 mmHg AI max P.1 mmHg Ao V2 mean: 169.6 cm/sec Ao mean P.0 mmHg AI dec slope: 789.1 cm/sec2 Ao V2 VTI: 48.9 cm AI P1/2t: 128.7 msec ECHO/Echo Transesophageal (CHRISTIAN) Interpretation Summary Normal LV size. The left ventricular ejection fraction is 45 %. Severe (4+) aortic valve insufficiency. Holo diastolic aortic flow reversal. Bioprosthetic aortic valve. Ordering Physician: Ginette Oquendo Referring Physician: Alejandra Randhawa M.D. Performed By: Mayda Waite RDCS
== END | disposition home or self-care (01) ==
PROVIDERS: PCP Internal Medicine; Referring Provider Nurse Practitioner Gerontology; Visit Provider Nurse Practitioner Gerontology
DX: I35.1 Nonrheumatic aortic (valve) insufficiency (principal); I35.0 Nonrheumatic aortic (valve) stenosis; R06.09 Other forms of dyspnea; Z95.2 Presence of prosthetic heart valve
CPT/HCPCS: 93005; 93312; 93320; 93325; A4216